=== PATIENT | male | born 1955 | race Caucasian/White ===

== ENCOUNTER 2022-12-17 07:56 | Outpatient (OUT) | payer BC, SELFPAY ==
[2022-12-17 08:32] LABS: Basophils Percent Auto 0.6 % (0.2-2.0); Eosinophils Absolute Auto 0.1 10^3/uL (0.0-0.7); Eosinophils Percent Auto 1.8 % (0.9-7.0); Hematocrit 44.9 % (42.0-54.0); Hemoglobin 15.1 g/dL (14.0-18.0); Immature Granulocytes Abs Auto 0.04 10^3/uL (0.00-0.03); Immature Granulocytes Pct Auto 0.8 % (0.0-0.5); Lymphocytes Absolute Auto 1.7 10^3/uL (1.2-3.8); Lymphocytes Percent Auto 34.3 % (20.5-60.0); Mean Corpuscular HGB Conc 33.6 g/dL (29.9-35.2); Mean Corpuscular Hemoglobin 31.7 pg (25.9-34.0); Mean Corpuscular Volume 94.3 fL (80.0-94.0); Mean Platelet Volume 9.5 fL (9.5-13.5); Monocytes Absolute Auto 0.5 10^3/uL (0.3-0.8); Monocytes Percent Auto 10.3 % (1.7-12.0); Neutrophils Absolute Auto 2.6 10^3/uL (1.4-6.5); Neutrophils Percent Auto 52.2 % (43.0-75.0); Platelet Count 152 10^3/uL (150-450); Red Blood Count 4.76 10^6/uL (4.70-6.10); Red Cell Distribution Width 12.9 % (11.0-15.0)
[2022-12-17 14:09] LABS: Alanine Aminotransferase 26 U/L (16-63); Albumin Level 3.6 g/dL (3.4-5.0); Alkaline Phosphatase 67 U/L (46-116); Anion Gap 9.3; Aspartate Amino Transferase 16 U/L (15-37); BUN Creatinine Ratio 20.7; Bilirubin Direct 0.1 mg/dL (0.0-0.2); Bilirubin Total 0.5 mg/dL (0.2-1.0); Carbon Dioxide 28.9 mmol/L (21.0-32.0); Chloride 106 mmol/L (98-107); Estimated GFR (African America >60 (>=60); Estimated GFR (Non-African Ame 60 (>=60); Globulin 3.6 g/dL; Glucose 218 mg/dL (74-106); Potassium 5.2 mmol/L (3.5-5.1); Sodium 139 mmol/L (136-145); Total Protein 7.2 g/dL (6.4-8.2); Valproic Acid 90.9 ug/mL (50.0-100.0)
[2022-12-19 12:09] LABS: Levetiracetam (Keppra), S 47.7 ug/mL (10.0-40.0)
== END 2022-12-17 07:57 | disposition home or self-care (01) ==
LOC: LAB 08:01
PROVIDERS: PCP Internal Medicine
DX: G40.909 Epilepsy, unspecified, not intractable, without status epilepticus (principal)
CPT/HCPCS: 36415; 80048; 80076; 80164; 80177; 85025

== ENCOUNTER 2023-03-19 07:14 | Outpatient (OUT) | payer BC, SELFPAY ==
[2023-03-19 14:22] LABS: Estimated Average Glucose 217 mg/dL; Glycohemoglobin A1C 9.2 % (4.5-6.2)
== END 2023-03-19 07:15 | disposition home or self-care (01) ==
PROVIDERS: PCP Internal Medicine; Visit Provider Internal Medicine
DX: E11.65 Type 2 diabetes mellitus with hyperglycemia (principal)
CPT/HCPCS: 36415; 83036

== ENCOUNTER 2023-06-27 14:46 | Outpatient (OUT) | payer BC, SELFPAY ==
[2023-06-27 15:40] LABS: Estimated Average Glucose 255 mg/dL; Glycohemoglobin A1C 10.5 % (4.5-6.2)
== END 2023-06-27 14:47 | disposition home or self-care (01) ==
LOC: LAB 14:47
PROVIDERS: PCP Internal Medicine; Visit Provider Internal Medicine
DX: E11.65 Type 2 diabetes mellitus with hyperglycemia (principal)
CPT/HCPCS: 36415; 83036

== ENCOUNTER 2023-10-03 06:28 | Outpatient (OUT) | payer BC, SELFPAY ==
--- OUTSIDE RECORDS SUMMARY | 2023-10-03 06:33 | XMS_ITS | CCD ---
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 Phone: Chloride [Moles/Vol] 99 mmol/L 98 - 107 mmol/L [employer] Phone: CO2 [Moles/Vol] 25 mmol/L 20 - 31 mmol/L [employer] Phone: Creatinine [Mass/Vol] 0.61 mg/dL Low 0.70 - 1.20 mg/dL [employer] Phone: Free PSA/Total PSA [Mass fraction] 6.7 g/dL 6.4 - 8.3 g/dL [employer] Phone: GFR >60 >60 mL/min [employer] Phone: GFR Non- >60 >60 mL/min [employer] Phone: Glucose [Mass/Vol] 157 mg/dL High 70 - 99 mg/dL [employer] Phone: Interpretation and review of laboratory results Abnormal [employer] Phone: Potassium [Moles/Vol] 4.3 mmol/L 3.7 - 5.3 mmol/L [employer] Phone: Sodium [Moles/Vol] 133 mmol/L Low 135 - 144 mmol/L [employer] Phone: Urea nitrogen (BldV) [Mass/Vol] 12 mg/dL 8 - 23 mg/dL [employer] Phone: Urea nitrogen/Creatinin e (Bld) [Mass ratio] 20 [employer] Phone: [employer] Phone: Laboratory - Chemistry and C hemistry - challengeOrdered By: Yuko Hunt on 01-01-2021 GFR/1.73 sq M.predicted MDRD (S/P/Bld) [Vol rate/Area] [employer] Phone: Comment on above: Average GFR for 60-6 9 years old: 85 mL/min/1.73sq m Chronic Kidney Disease: <60 mL/min/1.73sq m Kidney failure: <15 mL/min/1.73sq m eGFR calculated using average adult body mass. Additional eGFR calculator available at: http://www.365Scores/multiple_crcl_2012.htm Stage 1: Some kidney damage normal GFR Stage 2: Mild kidney damage GFR 60-89 Stage 3: Moderate kidney damage GFR 30-59 Stage 4: Severe kidney damage GFR 15-29 Stage 5: Severe kidney damage GFR <15 ESRD - chronic treatment by dialysis or transplant COMPLETE BLOOD COUNTon 12-28 Erythrocyte distribution width (RBC) [Ratio] 15.5 % High 11.5-14.5 [facility] Comment on above: Performed By: #### C BC ####[facility] [id number] [place], [address] Hematocrit (Bld) [Volume fraction] 23.2 % Low 41.0-53.0 [facility] Comment on above: Performed By: #### C BC ####[facility] [id number] [place], [place], Hemoglobin (Bld) [Mass/Vol] 7.7 g/dL Low 13.9-16.3 [facility] Comment on above: Performed By: #### C BC ####[facility] [id number] [place], [place], MCH (RBC) [Entitic mass] 29.9 pg Normal 26.0-34.0 [facility] Comment on above: Performed By: #### C BC ####[facility] [id number] [place] [address], MCHC (RBC) [Mass/Vol] 33.2 g/dL Normal 32.0-35.9 [facility] Comment on above: Performed By: #### C BC ####[facility] [id number] [place] [address], MCV (RBC) [Entitic vol] 90 fL Normal 80-100 [facility] Comment on above: Performed By: #### C BC ####[facility]Y [id number] [place] [address], Platelet mean volume (Bld) [Entitic vol] 6.9 fL Low 7.5-11.2 [facility] Comment on above: Performed By: #### C BC ####[facility] [id number] [place] [address], Platelets (Bld) [#/Vol] 231 10*3/uL Normal 150-400 [facility] Comment on above: Performed By: #### C BC ####[facility] [id number] [place] [address], RBC (Bld) [#/Vol] 2.58 10*6/uL Low 4.50-5.90 [facility] Comment on above: Performed By: #### C BC ####[facility] [id number] [place] [address], WBC (Bld) [#/Vol] 5.4 10*3/uL Normal 4.5-11.5 [facility] Comment on above: Performed By: #### C BC ####[facility] [id number] [place], [address] Care Plan Noteon 12-28-2020 [employer] Physical Therapist Assistant Authentication Interface Message Text Normal [facility] Consultson 12-28-2020 [employer] Physical Therapist Assistant Authentication Interface Message Text Normal [facility] Discharge Planning Noteon Per [employer] Physical Therapist Assistant Authentication Interface Message Text Normal [facility] GLUCOSE, FINGERSTICK-IN OFFI CEon 12-28-2020 Glucose [Mass/Vol] 186 mg/dL High 80-116 [facility] Comment on above: Performed By: #### 8 2948 ####NURSING GLUCOSE [id number] [place], [address] Glucose [Mass/Vol] 266 mg/dL High 80-116 [facility] Comment on above: Performed By: #### 8 2948 ####NURSING GLUCOSE [id number] [place], [address] Progress Noteson 12-28-2020 Per [employer] Physical Therapist Assistant Authentication Interface Message Text Report called to [facility]. Normal [facility] Per Diem Physical Therapist Assistant Authentication Interface Message Text SW informed by admissions at [facility] that pre-cert has been obtained. SW to set up transport via [email or web address]. YUNIEL Sanderson Social Work Normal [facility] Per Diem Physical Therapist Assistant Authentication Interface Message Text Normal [facility] Care Plan Noteon 12-27-2020 [employer] Physical Therapist Assistant Authentication Interface Message Text Normal [facility] Per Diem Physical Therapist Assistant Authentication Interface Message Text Normal [facility] Coding Summary.on 12-27-2020 Coding Summary. Normal [facility] Consultson 12-27-2020 Per [employer] Physical Therapist Assistant Authentication Interface Message Text Normal [facility] GLUCOSE, FINGERSTICK-IN OFFI CEon 12-27-2020 Glucose [Mass/Vol] 215 mg/dL High 80-116 [facility] Comment on above: Performed By: #### 8 2948 ####NURSING GLUCOSE [id number] [place], [address] Glucose [Mass/Vol] 279 mg/dL High 80-116 [facility] Comment on above: Performed By: #### 8 2948 ####NURSING GLUCOSE [id number] [place], [address] Glucose [Mass/Vol] 213 mg/dL High 80-116 [facility] Comment on above: Performed By: #### 8 2948 ####NURSING GLUCOSE [id number] [place], [address] Progress Noteson 12-27-2020 Per [employer] Physical Therapist Assistant Authentication Interface Message Text Normal [facility] Per Diem Physical Therapist Assistant Authentication Interface Message Text Normal [facility] Per Diem Physical Therapist Assistant Authentication Interface Message Text Normal [facility] Care Plan Noteon 12-26-2020 Per [employer] Physical Therapist Assistant Authentication Interface Message Text Normal [facility] Consultson 12-26-2020 Per [employer] Physical Therapist Assistant Authentication Interface Message Text Normal [facility] Per Diem Physical Therapist Assistant Authentication Interface Message Text Normal [facility] GLUCOSE, FINGERSTICK-IN OFFI CE12-26-2020 Glucose [Mass/Vol] 240 mg/dL High 80-116 [facility] Comment on above: Performed By: #### 8 2948 ####NURSING GLUCOSE [id number] [place], [address] Glucose [Mass/Vol] 171 mg/dL High 80-116 [facility] Comment on above: Performed By: #### 8 2948 ####NURSING GLUCOSE [id number] [place], [address] Glucose [Mass/Vol] 215 mg/dL High 80-116 [facility] Comment on above: Performed By: #### 8 2948 ####NURSING GLUCOSE [id number] [place], [address] Glucose [Mass/Vol] 151 mg/dL High 80-116 [facility] Comment on above: Performed By: #### 8 2948 ####NURSING GLUCOSE [id number] [place], [address] Progress Noteson 12-26-2020 Per Diem Physical Therapist Assistant Authentication Interface Message Text Normal [facility] Per Diem Physical Therapist Assistant Authentication Interface Message Text Normal [facility] Per Diem Physical Therapist Assistant Authentication Interface Message Text Normal [facility] Care Plan Noteon 12-25-2020 Per [employer]em Physical Therapist Assistant Authentication Interface Message Text Normal [facility] GLUCOSE, FINGERSTICK-IN OFFI CEon 12-25-2020 Glucose [Mass/Vol] 209 mg/dL High 80-116 [facility] Comment on above: Performed By: #### 8 2948 ####NURSING GLUCOSE [id number] [place], [address] Glucose [Mass/Vol] 193 mg/dL High 80-116 [facility] Comment on above: Performed By: #### 8 2948 ####NURSING GLUCOSE [id number] [place], [address] Glucose [Mass/Vol] 150 mg/dL High 80-116 [facility] Comment on above: Performed By: #### 8 2948 ####NURSING GLUCOSE [id number] [place], [address] Glucose [Mass/Vol] 96 mg/dL Normal 80-116 [facility] Comment on above: Performed By: #### 8 2948 ####NURSING GLUCOSE [id number] [place], [address] Glucose [Mass/Vol] 142 mg/dL High 80-116 [facility] Comment on above: Performed By: #### 8 2948 ####NURSING GLUCOSE [id number] [place], [address] Progress Noteson 12-25-2020 Per Diem Physical Therapist Assistant Authentication Interface Message Text Normal [facility] Per Diem Physical Therapist Assistant Authentication Interface Message Text Normal [facility] Per Diem Physical Therapist Assistant Authentication Interface Message Text Normal [facility] Care Plan Noteon 12-24-2020 Per Diem Physical Therapist Assistant Authentication Interface Message Text Normal [facility] Consultson 12-24-2020 Per [employer] Physical Therapist Assistant Authentication Interface Message Text Normal [facility] GLUCOSE, FINGERSTICK-IN OFFI CEon 12-24-2020 Glucose [Mass/Vol] 211 mg/dL High 80-116 [facility] Comment on above: Performed By: #### 8 2948 ####NURSING GLUCOSE [id number] [place], [address] Glucose [Mass/Vol] 206 mg/dL High 80-116 [facility] Comment on above: Performed By: #### 8 2948 ####NURSING GLUCOSE [id number] [place], [address] Glucose [Mass/Vol] 102 mg/dL Normal 80-116 [facility] Comment on above: Performed By: #### 8 2948 ####NURSING GLUCOSE [id number] [place], [address] Glucose [Mass/Vol] 66 mg/dL Low 80-116 [facility] Comment on above: Performed By: #### 8 2948 ####NURSING GLUCOSE [id number] [place], Glucose [Mass/Vol] 159 mg/dL High 80-116 [facility] Comment on above: Performed By: #### 8 2948 ####NURSING GLUCOSE [id number] [place], [address] Progress Noteson 12-24-2020 Per Diem Physical Therapist Assistant Authentication Interface Message Text Normal [facility] Per Diem Physical Therapist Assistant Authentication Interface Message Text Normal [facility] BASIC METABOLIC PANELon Anion gap [Moles/Vol] 11 mmol/L Normal 5-13 [facility] Comment on above: Performed By: #### Sofia Shah, MG ####[facility] [id number] [place], Calcium [Mass/Vol] 7.2 mg/dL Low 8.4-10.4 [facility] Comment on above: Performed By: #### Sofia Shah, MG ####[facility] [id number] [place], Chloride [Moles/Vol] 100 mmol/L Normal 97-111 [facility] Comment on above: Performed By: #### Sofia Shah, MG ####[facility] [id number] [place], CO2 [Moles/Vol] 29 mmol/L Normal 21-30 [facility] Comment on above: Performed By: #### Sofia Shah, MG ####[facility] [id number] [place], Creatinine [Mass/Vol] 0.71 mg/dL Low 0.80-1.30 [facility] Comment on above: Performed By: #### Sofia Shah, MG ####[facility] [id number] [place], ESTIMATED GFR (CKD-EPI) 99 mL/min/1.73sqm Normal >=60 [facility] Comment on above: Performed By: #### Sofia Shah, MG ####[facility] [id number] [place], Glucose [Mass/Vol] 177 mg/dL High 80-116 [facility] Comment on above: Performed By: #### C H8, MG ####S PATHOLOGY [id number] [place], Potassium [Moles/Vol] 4.3 mmol/L Normal 3.3-5.3 [facility] Comment on above: Performed By: #### Sofia H8, MG ####[facility] PATH[facility] [id number] [place], Sodium [Moles/Vol] 136 mmol/L Normal 135-148 [facility] Comment on above: Performed By: #### Sofia H8, MG ####[facility] PATH[facility] [id number] [place], Urea nitrogen [Mass/Vol] 13 mg/dL Normal 8-22 [facility] Comment on above: Performed By: #### Sofia H8, MG ####[facility] PATHOLOGY [id number] [place] [address], COMPLETE BLOOD COUNTon 12-23 Erythrocyte distribution width (RBC) [Ratio] 15.7 % High 11.5-14.5 [facility] Comment on above: Performed By: #### C BC ####[facility] PATHOLOGY [id number] [place] [address], Hematocrit (Bld) [Volume fraction] 21.6 % Low 41.0-53.0 [facility] Comment on above: Performed By: #### C BC ####S PATHOLOGY [id number] [place], Hemoglobin (Bld) [Mass/Vol] 7.2 g/dL Low 13.9-16.3 [facility] Comment on above: Performed By: #### C BC ####S PATHOLOGY [id number] [place], MCH (RBC) [Entitic mass] 29.8 pg Normal 26.0-34.0 [facility] Comment on above: Performed By: #### C BC ####S PATHOLOGY [id number] [place] [address], MCHC (RBC) [Mass/Vol] 33.1 g/dL Normal 32.0-35.9 [facility] Comment on above: Performed By: #### C BC ####[facility] [id number] [place], MCV (RBC) [Entitic vol] 90 fL Normal 80-100 [facility] Comment on above: Performed By: #### C BC ####[facility] [id number] [place], Platelet mean volume (Bld) [Entitic vol] 6.5 fL Low 7.5-11.2 [facility] Comment on above: Performed By: #### C BC ####[facility] PATH[facility] [id number] [place], Platelets (Bld) [#/Vol] 288 10*3/uL Normal 150-400 [facility] Comment on above: Performed By: #### C BC ####[facility] PATH[facility] [id number] [place], RBC (Bld) [#/Vol] 2.41 10*6/uL Low 4.50-5.90 [facility] Comment on above: Performed By: #### C BC ####[facility] PATH[facility] [id number] [place], WBC (Bld) [#/Vol] 6.8 10*3/uL Normal 4.5-11.5 [facility] Comment on above: Performed By: #### C BC ####[facility] PATHOLOGY [id number] [place], Care Plan Noteon 12-23-2020 Per [employer]em Physical Therapist Assistant Authentication Interface Message Text Normal [facility] GLUCOSE, FINGERSTICK-IN OFFI CEon 12-23-2020 Glucose [Mass/Vol] 139 mg/dL High 80-116 [facility] Comment on above: Performed By: #### 8 2948 ####NURSING GLUCOSE [id number] [place], Glucose [Mass/Vol] 112 mg/dL Normal 80-116 [facility] Comment on above: Performed By: #### 8 2948 ####NURSING GLUCOSE [id number] [place], [address] Glucose [Mass/Vol] 206 mg/dL High 80-116 [facility] Comment on above: Performed By: #### 8 2948 ####NURSING GLUCOSE [id number] [place], [address] Glucose [Mass/Vol] 115 mg/dL Normal 80-116 [facility] Comment on above: Performed By: #### 8 2948 ####NURSING GLUCOSE [id number] [place], [address] Glucose [Mass/Vol] 172 mg/dL High 80-116 [facility] Comment on above: Performed By: #### 8 2948 ####NURSING GLUCOSE [id number] [place], [address] HEMOGLOBIN A1Con 12-23-2020 Glucose [Mass/Vol] 143 mg/dL Normal [facility] Comment on above: Order Comment: HbA1c of 5.7-6.4% have increased risk for diabetes and CV(Source :ADA 2014 Standard of Medical Care in Diabetes) Performed By: #### H B A1C ####[facility] [address] [place], [address] HbA1c (Bld) [Mass fraction] 6.6 % High 4.0-5.6 [facility] Comment on above: Order Comment: HbA1c of 5.7-6.4% have increased risk for diabetes and CV(Source :ADA 2014 Standard of Medical Care in Diabetes) Performed By: #### H B A1C ####[facility] [address] [place], [address] MAGNESIUMon 12-23-2020 Magnesium [Mass/Vol] 1.9 mg/dL Normal 1.6-2.8 [facility] Comment on above: Performed By: #### C H8, MG ####[facility] [id number] [place], [address] Progress Noteson 12-23-2020 Per Diem Physical Therapist Assistant Authentication Interface Message Text Normal [facility] Per Diem Physical Therapist Assistant Authentication Interface Message Text Normal [facility] BASIC METABOLIC PANELon 07-0 Anion gap [Moles/Vol] 10 mmol/L Normal 5-13 [facility] Comment on above: Performed By: #### Rosa Wells, CH8 ####S PATHOLOGY [id number] [place], Calcium [Mass/Vol] 7.4 mg/dL Low 8.4-10.4 [facility] Comment on above: Performed By: #### Rosa Wells, CH8 ####S PATHOLOGY [id number] [place], Chloride [Moles/Vol] 101 mmol/L Normal 97-111 [facility] Comment on above: Performed By: #### Rosa Wells, CH8 ####S PATHOLOGY [id number] [place], CO2 [Moles/Vol] 30 mmol/L Normal 21-30 [facility] Comment on above: Performed By: #### Rosa Wells, CH8 ####S PATHOLOGY [id number] [place], [place], Creatinine [Mass/Vol] 0.62 mg/dL Low 0.80-1.30 [facility] Comment on above: Performed By: #### Rosa Wells, CH8 ####[facility] PATHOLOGY [id number] [place], ESTIMATED GFR (CKD-EPI) 105 mL/min/1.73sqm Normal >=60 [facility] Comment on above: Performed By: #### Rosa Wells, CH8 ####S PATHOLOGY KFHEHFANXF4723 [place], Glucose [Mass/Vol] 91 mg/dL Normal 80-116 [facility] Comment on above: Performed By: #### Rosa Wells, CH8 ####S PATHOLOGY QKOYOAZIYB3963 [place], Potassium [Moles/Vol] 4.3 mmol/L Normal 3.3-5.3 [facility] Comment on above: Performed By: #### Rosa Wells, CH8 ####S PATHOLOGY TDCJXPUWYV7162 [place], Sodium [Moles/Vol] 137 mmol/L Normal 135-148 [facility] Comment on above: Performed By: #### Roas Wells, CH8 ####[facility] PATHOLOGY PEIUNVDEVI5704 [place], Urea nitrogen [Mass/Vol] 10 mg/dL Normal 8-22 [facility] Comment on above: Performed By: #### Rosa Wells, CH8 ####[facility] PATHOLOGY [id number] [place], COMPLETE BLOOD COUNTon 12-22 Erythrocyte distribution width (RBC) [Ratio] 16.0 % High 11.5-14.5 [facility] Comment on above: Performed By: #### C BC ####[facility] PATHOLOGY [id number] [place], Hematocrit (Bld) [Volume fraction] 22.8 % Low 41.0-53.0 [facility] Comment on above: Performed By: #### C BC ####[facility] PATHOLOGY [id number] [place] [address], Hemoglobin (Bld) [Mass/Vol] 7.4 g/dL Low 13.9-16.3 [facility] Comment on above: Performed By: #### C BC ####[facility] PATHOLOGY [id number] [place], MCH (RBC) [Entitic mass] 29.1 pg Normal 26.0-34.0 [facility] Comment on above: Performed By: #### C BC ####[facility] PATHOLOGY JILRFUQJME4313 [place], MCHC (RBC) [Mass/Vol] 32.7 g/dL Normal 32.0-35.9 [facility] Comment on above: Performed By: #### C BC ####S PATHOLOGY JFUPWPWMDA9372 [place], MCV (RBC) [Entitic vol] 89 fL Normal 80-100 [facility] Comment on above: Performed By: #### C BC ####S PATHOLOGY EGTALQNWPB5634 [place], Platelet mean volume (Bld) [Entitic vol] 6.5 fL Low 7.5-11.2 [facility] Comment on above: Performed By: #### C BC ####S PATHOLOGY GRANNZYEDK8837 [place], Platelets (Bld) [#/Vol] 306 10*3/uL Normal 150-400 [facility] Comment on above: Performed By: #### C BC ####[facility] PATHOLOGY DCSGIOXUNL8015 [place], RBC (Bld) [#/Vol] 2.56 10*6/uL Low 4.50-5.90 [facility] Comment on above: Performed By: #### C BC ####[facility] PATHOLOGY NUBGYWOIDY6939 [place], WBC (Bld) [#/Vol] 10.0 10*3/uL Normal 4.5-11.5 [facility] Comment on above: Performed By: #### C BC ####[facility] PATHOLOGY UAFDUKEFZF8112 [place], Care Plan Noteon 12-22-2020 Per Diem Physical Therapist Assistant Authentication Interface Message Text Normal [facility] Consultson 12-22-2020 Per Diem Physical Therapist Assistant Authentication Interface Message Text Normal [facility] Per Diem Physical Therapist Assistant Authentication Interface Message Text Normal [facility] Per Diem Physical Therapist Assistant Authentication Interface Message Text Normal [facility] GLUCOSE, FINGERSTICK-IN OFFI CEon 12-22-2020 Glucose [Mass/Vol] 110 mg/dL Normal 80-116 [facility] Comment on above: Performed By: #### 8 2948 ####NURSING GLUCOSE LXLTNZY8706 [place], [address] Glucose [Mass/Vol] 243 mg/dL High 80-116 [facility] Comment on above: Performed By: #### 8 2948 ####NURSING GLUCOSE NQPKKSX6050 [place], [address] Glucose [Mass/Vol] 120 mg/dL High 80-116 [facility] Comment on above: Performed By: #### 8 2948 ####NURSING GLUCOSE XKFAFRC9927 [place], [address] Glucose [Mass/Vol] 102 mg/dL Normal 80-116 [facility] Comment on above: Performed By: #### 8 2948 ####NURSING GLUCOSE JLTGYLZ6507 [place], [address] MAGNESIUMon 12-22-2020 Magnesium [Mass/Vol] 1.8 mg/dL Normal 1.6-2.8 [facility] Comment on above: Performed By: #### Rosa Wells, CH8 ####[facility] PATHOLOGY [id number] [place], Progress Noteson 12-22-2020 Per Diem Physical Therapist Assistant Authentication Interface Message Text Normal [facility] Per Diem Physical Therapist Assistant Authentication Interface Message Text Normal [facility] Per Diem Physical Therapist Assistant Authentication Interface Message Text Normal [facility] XR CHEST AP OR PA 1 VIEWon 0 12-22-2020 XR CHEST AP OR PA 1 VIEW Normal [facility] XR CHEST AP OR PA 1 VIEW Normal [facility] BASIC METABOLIC PANELon Anion gap [Moles/Vol] 12 mmol/L Normal 5-13 [facility] Comment on above: Performed By: #### C H8, MG ####S PATHOLOGY JPQHJTAYJN8161 [place], Calcium [Mass/Vol] 7.4 mg/dL Low 8.4-10.4 [facility] Comment on above: Performed By: #### C H8, MG ####[facility] HZYNZIIRGI6198 [place], Chloride [Moles/Vol] 99 mmol/L Normal 97-111 [facility] Comment on above: Performed By: #### C H8, MG ####[facility] DAGXDEHIQV1003 [place], CO2 [Moles/Vol] 27 mmol/L Normal 21-30 [facility] Comment on above: Performed By: #### C H8, MG ####[facility] CGHCWEMJIZ8576 [place], Creatinine [Mass/Vol] 0.63 mg/dL Low 0.80-1.30 [facility] Comment on above: Performed By: #### C H8, MG ####S PATHOLOGY WNZTUBPTYS7658 [place], ESTIMATED GFR (CKD-EPI) 104 mL/min/1.73sqm Normal >=60 [facility] Comment on above: Performed By: #### Sofia H8, MG ####[facility] [id number] [place], Glucose [Mass/Vol] 228 mg/dL High 80-116 [facility] Comment on above: Performed By: #### Sofia Apodaca8, MG ####S PATHOLOGY LTKXTLEXVR8447 [place], Potassium [Moles/Vol] 4.9 mmol/L Normal 3.3-5.3 [facility] Comment on above: Performed By: #### Sofia H8, MG ####S PATHOLOGY SCSCLDIPYB6601 [place], Sodium [Moles/Vol] 133 mmol/L Low 135-148 [facility] Comment on above: Performed By: #### Sofia H8, MG ####S PATHOLOGY JMLYRTWJLD1752 [place], Urea nitrogen [Mass/Vol] 8 mg/dL Normal 8-22 [facility] Comment on above: Performed By: #### Sofia H8, MG ####S PATHOLOGY VBTLEUMPGA7702 [place], COMPLETE BLOOD COUNTon 12-21 Erythrocyte distribution width (RBC) [Ratio] 15.8 % High 11.5-14.5 [facility] Comment on above: Performed By: #### C BC ####[facility] RFALNYSFBL8075 [place], Hematocrit (Bld) [Volume fraction] 24.6 % Low 41.0-53.0 [facility] Comment on above: Performed By: #### C BC ####[facility] SRNLTRVFXP8854 [place], Hemoglobin (Bld) [Mass/Vol] 8.3 g/dL Low 13.9-16.3 [facility] Comment on above: Performed By: #### C BC ####[facility] PATHOLOGY [id number] [place], MCH (RBC) [Entitic mass] 30.6 pg Normal 26.0-34.0 [facility] Comment on above: Performed By: #### C BC ####[facility] PATHOLOGY [id number] [place], MCHC (RBC) [Mass/Vol] 33.6 g/dL Normal 32.0-35.9 [facility] Comment on above: Performed By: #### C BC ####[facility] PATHOLOGY FHGULFABGV4929 [place], MCV (RBC) [Entitic vol] 91 fL Normal 80-100 [facility] Comment on above: Performed By: #### C BC ####[facility] PATHOLOGY [id number] [place], Platelet mean volume (Bld) [Entitic vol] 6.6 fL Low 7.5-11.2 [facility] Comment on above: Performed By: #### C BC ####[facility] PATHOLOGY [id number] [place], Platelets (Bld) [#/Vol] 361 10*3/uL Normal 150-400 [facility] Comment on above: Performed By: #### C BC ####[facility] PATHOLOGY [id number] [place], RBC (Bld) [#/Vol] 2.70 10*6/uL Low 4.50-5.90 [facility] Comment on above: Performed By: #### C BC ####[facility] PATHOLOGY PGQNHXEKOO8764 [place], WBC (Bld) [#/Vol] 10.1 10*3/uL Normal 4.5-11.5 [facility] Comment on above: Performed By: #### C BC ####S PATHOLOGY AOKFAQDDKL8471 [place], [facility] Per Diem Physical Therapist Assistant Authentication Interface Message Text Normal [facility] Per Diem Physical Therapist Assistant Authentication Interface Message Text Normal [facility] Per Diem Physical Therapist Assistant Authentication Interface Message Text Normal [facility] GLUCOSE, FINGERSTICK-IN OFFI CEon 12-21-2020 Glucose [Mass/Vol] 165 mg/dL High 80-116 [facility] Comment on above: Performed By: #### 8 2948 ####NURSING GLUCOSE ZMLHMUI1527 [place], [address] Glucose [Mass/Vol] 270 mg/dL High 80-116 [facility] Comment on above: Performed By: #### 8 2948 ####NURSING GLUCOSE NSZGIXY3112 [place], [address] Glucose [Mass/Vol] 158 mg/dL High 80-116 [facility] Comment on above: Performed By: #### 8 2948 ####NURSING GLUCOSE ZPBKOCU7459 [place], [address] Glucose [Mass/Vol] 175 mg/dL High 80-116 [facility] Comment on above: Performed By: #### 8 2948 ####NURSING GLUCOSE EHWDXJO7292 [place], [address] Glucose [Mass/Vol] 283 mg/dL High 80-116 [facility] Comment on above: Result Comment: Javier CURTISN Performed By: #### 8 2944 ####NURSING GLUCOSE ZLCOFDM1683 [place], [address] HOSPon 12-21-2020 HOSP Patient:Uma Barker N MRN: No data within the last 30 days. Normal [facility] MAGNESIUMon 12-21-2020 Magnesium [Mass/Vol] 1.6 mg/dL Normal 1.6-2.8 [facility] Comment on above: Performed By: #### C H8, MG ####[facility] QIXHQOUMCB4873 [place], [address] Progress Noteson 12-21-2020 Per Diem Physical Therapist Assistant Authentication Interface Message Text Normal [facility] Per Diem Physical Therapist Assistant Authentication Interface Message Text Normal [facility] XR CHEST AP OR PA 1 VIEWon 0 12-21-2020 XR CHEST AP OR PA 1 VIEW Normal [facility] AFB CULTURE/SMEARon 12-21-19 21 AFB CULTURE/SMEAR C AFB: No Growth AFB STAIN: No Acid Fast Bacilli Seen Normal [facility] Comment on above: Performed By: #### C AFB ####[facility] Jtfsxrwts3974 [place], [place] ANAEROBIC CULTURE, MISCon [place]OB[place] [facility] [place]: No Anaerobes isolated Normal [facility] Comment on above: Performed By: #### C ANRBC ####[facility] Etgfktjjg1291 [place], [place] [place] [facility] [place] [place] ANRBC: No Anaerobes isolated Normal [facility] Comment on above: Performed By: #### C ANRBC ####[facility] Rdlmnonhl9685 [place], [place] Anesthesia Attestationon Per Diem Physical Therapist Assistant Authentication Interface Message Text Normal [facility] Anesthesia Postprocedure Lizbeth luationon 12-20-2020 Per Diem Physical Therapist Assistant Authentication Interface Message Text Normal [facility] Anesthesia Preprocedure Eval uationon 12-20-2020 Per Diem Physical Therapist Assistant Authentication Interface Message Text Normal [facility] Anesthesia Transfer Of Careo n 12-20-2020 Per Diem Physical Therapist Assistant Authentication Interface Message Text Normal [facility] BASIC METABOLIC PANELon - Anion gap [Moles/Vol] 12 mmol/L Normal 5-13 [facility] Comment on above: Performed By: #### Sofia H8, MG ####[facility] CKPJNOELFN6132 [place], Calcium [Mass/Vol] 7.4 mg/dL Low 8.4-10.4 [facility] Comment on above: Performed By: #### Sofia H8, MG ####[facility] CPSZERLGSH9788 [place], Chloride [Moles/Vol] 100 mmol/L Normal 97-111 [facility] Comment on above: Performed By: #### Sofia H8, MG ####[facility] AJGXRYLMRC9303 [place], CO2 [Moles/Vol] 29 mmol/L Normal 21-30 [facility] Comment on above: Performed By: #### Sofia H8, MG ####S PATHOLOGY XZQFKFKZHG5796 [place], Creatinine [Mass/Vol] 0.70 mg/dL Low 0.80-1.30 [facility] Comment on above: Performed By: #### Sofia H8, MG ####S PATHOLOGY QSHWIGUHWU0892 [place], ESTIMATED GFR (CKD-EPI) 100 mL/min/1.73sqm Normal >=60 [facility] Comment on above: Performed By: #### Sofia H8, MG ####[facility] PATHOLOGY SFXLVOCPXI6446 [place], Glucose [Mass/Vol] 192 mg/dL High 80-116 [facility] Comment on above: Performed By: #### Sofia H8, MG ####[facility] PATHOLOGY LTOPMVYVGS5917 [place], Potassium [Moles/Vol] 4.5 mmol/L Normal 3.3-5.3 [facility] Comment on above: Performed By: #### Sofia H8, MG ####[facility] PATHOLOGY JOIMJFKGIY9572 [place], Sodium [Moles/Vol] 136 mmol/L Normal 135-148 [facility] Comment on above: Performed By: #### Sofia H8, MG ####[facility] PATHOLOGY ZYJYHPBHME7908 [place], Urea nitrogen [Mass/Vol] 8 mg/dL Normal 8-22 [facility] Comment on above: Performed By: #### C H8, MG ####S PATHOLOGY OSHCEPAVAS1221 [place], BLOOD GAS, ARTERIALon 2020 CR % O2 SAT > 99.4 Normal >=95.1 [facility] Comment on above: Performed By: #### C R LYTES, CR GLU, CR BGA, LACT, CR ICA, CR COOX ####S PATHOLOGY UVMIKOWULG6301 [place], CR LESA 3.3 mmol/L High -2.0-2.0 [facility] Comment on above: Performed By: #### C R LYTES, CR GLU, CR BGA, LACT, CR ICA, CR COOX ####[facility] PATHOLOGY [address] [place] [address], CR PCO2 44.3 mm Hg Normal 35.0-45.0 [facility] Comment on above: Performed By: #### C R LYTES, CR GLU, CR BGA, LACT, CR ICA, CR COOX ####[facility] PATHOLOGY KLIKLEEROR[address] [place] [address], CR PHA 7.412 Normal 7.35-7.45 [facility] Comment on above: Performed By: #### C R LYTES, CR GLU, CR BGA, LACT, CR ICA, CR COOX ####[facility] PATHOLOGY NOPKUVIQRN[address] [place] [address], CR PO2 298 mm Hg High 80-100 mm Hg [facility] Comment on above: Performed By: #### C R LYTES, CR GLU, CR BGA, LACT, CR ICA, CR COOX ####[facility] PATHOLOGY JJDZAOJKIP[address] [place] [address], HCO3 (Bld) [Moles/Vol] 28 mmol/L Normal 22-28 [facility] Comment on above: Performed By: #### C R LYTES, CR GLU, CR BGA, LACT, CR ICA, CR COOX ####[facility] PATHOLOGY HVCRKXDCZU[address] [place] [address], Blood Attestationon 12-21-19 Per Diem Physical Therapist Assistant Authentication Interface Message Text Normal [facility] Brief Operative Noteon 12-20 Per Diem Physical Therapist Assistant Authentication Interface Message Text Normal [facility] CALCIUM, IONIZEDon CR ICA 1.11 mmol/L Normal 1.10-1.40 [facility] Comment on above: Performed By: #### C R LYTES, CR GLU, CR BGA, LACT, CR ICA, CR COOX ####[facility] PATHOLOGY BEYXII[address]LS[address] [place] [address], CO-OXIMETERon 12-20-2020 CARBOXYHEMOGLOBIN 2.1 % Normal <3.0 [facility] Comment on above: Performed By: #### C R LYTES, CR GLU, CR BGA, LACT, CR ICA, CR COOX ####[facility] PATHOLOGY QDYSMOGCGU[address] [place] [address], CR HBMET 0.9 % Normal <3.0 [facility] Comment on above: Performed By: #### C R LYTES, CR GLU, CR BGA, LACT, CR ICA, CR COOX ####[facility] PATHOLOGY ITHVFTQUEG[address] [place] [address], Hematocrit (Bld) [Volume fraction] 25.5 % Low 42.0-52.0 [facility] Comment on above: Performed By: #### C R LYTES, CR GLU, CR BGA, LACT, CR ICA, CR COOX ####[facility] PATHOLOGY UZWL[address]ZTGY[address] [place] [address], Hemoglobin (Bld) [Mass/Vol] 8.2 g/dL Low 14.0-18.0 [facility] Comment on above: Performed By: #### C R LYTES, CR GLU, CR BGA, LACT, CR ICA, CR COOX ####[facility] PATHOLOGY RFRPVPJUSL[address] [place] [address], OXYHEMOGLOBIN 97.3 % Normal 95.0-100.0 [facility] Comment on above: Performed By: #### C R LYTES, CR GLU, CR BGA, LACT, CR ICA, CR COOX ####[facility] PATHOLOGY VXDQVFDWKI[address] [place] [address], COMPLETE BLOOD COUNTon 12-20 Erythrocyte distribution width (RBC) [Ratio] 15.4 % High 11.5-14.5 [facility] Comment on above: Performed By: #### C BC ####[facility] PATHOLOGY KWEPHVNDWH[address] [place] [address], Hematocrit (Bld) [Volume fraction] 26.1 % Low 41.0-53.0 [facility] Comment on above: Performed By: #### C BC ####[facility] PATHOLOGY HEOZAPSMOO[address] [place] [address], Hemoglobin (Bld) [Mass/Vol] 8.5 g/dL Low 13.9-16.3 [facility] Comment on above: Performed By: #### C BC ####[facility] PATHOLOGY JZVWNHQBOT4320 [place], MCH (RBC) [Entitic mass] 29.6 pg Normal 26.0-34.0 [facility] Comment on above: Performed By: #### C BC ####[facility] PATHOLOGY [id number] [place] [address], MCHC (RBC) [Mass/Vol] 32.6 g/dL Normal 32.0-35.9 [facility] Comment on above: Performed By: #### C BC ####[facility] PATHOLOGY TMVTQCZUSD[address] [place] [address], MCV (RBC) [Entitic vol] 91 fL Normal 80-100 [facility] Comment on above: Performed By: #### C BC ####[facility] PATHOLOGY PLTBXTAEJN[address] [place] [address], Platelet mean volume (Bld) [Entitic vol] 6.8 fL Low 7.5-11.2 [facility] Comment on above: Performed By: #### C BC ####[facility] PATHOLOGY MLMXNFTTZR[address] [place] [address], Platelets (Bld) [#/Vol] 405 10*3/uL High 150-400 [facility] Comment on above: Performed By: #### C BC ####[facility] PATHOLOGY CXDHVJIRHB[address] [place] [address], RBC (Bld) [#/Vol] 2.88 10*6/uL Low 4.50-5.90 [facility] Comment on above: Performed By: #### C BC ####[facility] PATHOLOGY JKQOEFFFUI[address] [place] [address], WBC (Bld) [#/Vol] 6.2 10*3/uL Normal 4.5-11.5 [facility] Comment on above: Performed By: #### C BC ####[facility] PATHOLOGY QWLCYIUHPH3839 [place], Care Plan Noteon 12-20-2020 Per Diem Physical Therapist Assistant Authentication Interface Message Text Normal [facility] Consultson 12-20-2020 Per Diem Physical Therapist Assistant Authentication Interface Message Text Physical Therapy: Pt in OR for VATS. Will continue to follow per POC. Maria Luisa MONTERO Beeper #[phone] Normal [facility] ELECTROLYTESon 12-20-2020 Chloride [Moles/Vol] 104 mmol/L Normal 97-111 [facility] Comment on above: Performed By: #### C R LYTES, CR GLU, CR BGA, LACT, CR ICA, CR COOX ####[facility] PATHOLOGY [id number] [place], Potassium [Moles/Vol] 4.1 mmol/L Normal 3.3-5.3 [facility] Comment on above: Performed By: #### C R LYTES, CR GLU, CR BGA, LACT, CR ICA, CR COOX ####[facility] PATHOLOGY JOHSZMGSEF[address] [place] [address], Sodium [Moles/Vol] 136 mmol/L Normal 135-148 [facility] Comment on above: Performed By: #### C R LYTES, CR GLU, CR BGA, LACT, CR ICA, CR COOX ####[facility] PATHOLOGY [id number] [place], GLUCOSE, FINGERSTICK-IN OFFI CEon 12-20-2020 Glucose [Mass/Vol] 146 mg/dL High 80-116 [facility] Comment on above: Performed By: #### 8 2948 ####NURSING GLUCOSE IQQWMUH5776 [place], [address] Glucose [Mass/Vol] 147 mg/dL High 80-116 [facility] Comment on above: Performed By: #### 8 2948 ####NURSING GLUCOSE UMFCWYF8874 [place], [address] GLUCOSE, WHOLE BLOODon 12-20 CR GLU 132 mg/dL High 68-98 [facility] Comment on above: Performed By: #### C R LYTES, CR GLU, CR BGA, LACT, CR ICA, CR COOX ####S PATHOLOGY HWSHCIPDLH9384 [place], H AND Glenn 12-20-2020 Per Diem Physical Therapist Assistant Authentication Interface Message Text Normal [facility] LACTIC ACIDon 12-20-2020 CR LACT 1.2 mmol/L Normal 0.5-2.0 [facility] Comment on above: Performed By: #### C R LYTES, CR GLU, CR BGA, LACT, CR ICA, CR COOX ####S PATHOLOGY MAMNVZSIKL7375 [place], MAGNESIUMon 12-20-2020 Magnesium [Mass/Vol] 1.9 mg/dL Normal 1.6-2.8 [facility] Comment on above: Performed By: #### C H8, MG ####[facility] PATHOLOGY QCEKMATCLT8530 [place], [place] Surgeonon 12-20-2020 Per Diem Physical Therapist Assistant Authentication Interface Message Text Normal [facility] Progress Noteson 12-20-2020 Per Diem Physical Therapist Assistant Authentication Interface Message Text 1529: Assessment completed with assistance of translator and interpreter [id number]. 1620: Pt to go to the regular nursing floor per Dr. Pacheco. Normal [facility] Per Diem Physical Therapist Assistant Authentication Interface Message Text Normal [facility] RED BLOOD CELL COMPONENTon 0 12-20-2020 BB ORDER ITEM Product status info to follow Normal [facility] Comment on above: Performed By: #### R EVELYN ####S PATHOLOGY [id number] [place], RED BLOOD CELL UNIT STATUSon 12-20-2020 BLOOD PRODUCT CODE [id number] Normal [facility] Comment on above: Performed By: #### R BU ####[facility] ELYTSHBEDV5041 [place], BLOOD PRODUCT CODE [id number] Normal [facility] Comment on above: Performed By: #### R BU ####[facility] EZAZZDGSZQ0055 [place], BLOOD PRODUCT DESCRIPTION Red Blood Cells Normal [facility] Comment on above: Performed By: #### R BU ####S PATHOLOGY ACZPRWKEYI4826 [place], BLOOD PRODUCT STATUS Released to avail Normal [facility] Comment on above: Performed By: #### R BU ####S PATHOLOGY [id number] [place], BLOOD PRODUCT UNIT INFO [id number] Normal [facility] Comment on above: Performed By: #### R BU ####S PATHOLOGY [id number] [place], [place], BLOOD PRODUCT UNIT INFO [id number] Normal [facility] Comment on above: Performed By: #### R BU ####S PATHOLOGY [id number] [place], BLOOD PRODUCT UNIT INFO [id number] Normal [facility] Comment on above: Performed By: #### R BU ####S PATHOLOGY [id number] [place], BLOOD PRODUCT UNIT INFO [id number] Normal [facility] Comment on above: Performed By: #### R BU ####S PATHOLOGY XEURAEPEPA[address] [place] [address], BLOOD PRODUCT UNIT TYPE 5100 Normal [facility] Comment on above: Result Comment: O Po s Performed By: #### R BU ####S PATHOLOGY GTBHQMPUZA8323 [place], CROSSMATCH INTERPRETATION Compatible (E) Normal [facility] Comment on above: Performed By: #### R BU ####S PATHOLOGY RXITXDJTLW[address] [place] [address], TISSUE CULTURE, AEROBICon TISSUE CULTURE, AEROBIC C TISS: No Growth GRAM STAIN: 4+ Polymorphonuclear Leukocytes No Squamous Epithelial Cells seen No organisms seen Normal [facility] Comment on above: Performed By: #### C TISS ####[facility] Srzzrjjcr[address] [place], [place] [address] TISSUE CULTURE, AEROBIC C TISS: No Growth GRAM STAIN: 2+ Polymorphonuclear Leukocytes No Squamous Epithelial Cells seen No organisms seen Normal [facility] Comment on above: Performed By: #### C TISS ####[facility] Zqhblpecr6516 [place], [place] XR CHEST AP OR PA 1 VIEWon 0 12-20-2020 XR CHEST AP OR PA 1 VIEW Normal [facility] Anesthesia Preprocedure Eval uationon 12-19-2020 Per Diem Physical Therapist Assistant Authentication Interface Message Text Normal [facility] BASIC METABOLIC PANELon - Anion gap [Moles/Vol] 13 mmol/L Normal 5-13 [facility] Comment on above: Performed By: #### Rosa Wells, JASON8 ####S PATHOLOGY DNZBOVBJMM6992 [place], Calcium [Mass/Vol] 7.4 mg/dL Low 8.4-10.4 [facility] Comment on above: Performed By: #### Rosa Wells, JASON8 ####[facility] PATHOLOGY MAIZNFOY[address] [place] [address], Chloride [Moles/Vol] 99 mmol/L Normal 97-111 [facility] Comment on above: Performed By: ###Libra Wells, JASON8 ####[facility] PATHOLOGY XFNDYHSYDE[address] [place] [address], CO2 [Moles/Vol] 29 mmol/L Normal 21-30 [facility] Comment on above: Performed By: ###Libra Wells, JASON8 ####[facility] PATHOLOGY OLDIHTUNKU[address] [place] [address], Creatinine [Mass/Vol] 0.77 mg/dL Low 0.80-1.30 [facility] Comment on above: Performed By: ###Libra Wells, JASON8 ####[facility] PATHOLOGY OZIGMLQMAL0139 [place], ESTIMATED GFR (CKD-EPI) 96 mL/min/1.73sqm Normal >=60 [facility] Comment on above: Performed By: ###Libra Wells, JASON8 ####S PATHOLOGY JOINPNFYIA3389 [place], Glucose [Mass/Vol] 105 mg/dL Normal 80-116 [facility] Comment on above: Performed By: #### Rosa Wells CH8 ####S PATHOLOGY JXCPIDRIHF0509 [place], Potassium [Moles/Vol] 4.1 mmol/L Normal 3.3-5.3 [facility] Comment on above: Performed By: #### Rosa Wells, CH8 ####[facility] PATHOLOGY QWHDTLFNLO7078 [place], Sodium [Moles/Vol] 137 mmol/L Normal 135-148 [facility] Comment on above: Performed By: #### Rosa Wells, CH8 ####[facility] PATHOLOGY CSATIZHTIR7078 [place], Urea nitrogen [Mass/Vol] 9 mg/dL Normal 8-22 [facility] Comment on above: Performed By: #### Rosa Wells, JASON8 ####[facility] PATHOLOGY OAQPDCNWLL[address] [place] [address], COMPLETE BLOOD COUNTon 12-19 Erythrocyte distribution width (RBC) [Ratio] 15.4 % High 11.5-14.5 [facility] Comment on above: Performed By: #### C BC ####[facility] PATHOLOGY XUTKFXKQFL[address] [place] [address], Hematocrit (Bld) [Volume fraction] 25.3 % Low 41.0-53.0 [facility] Comment on above: Performed By: #### C BC ####[facility] PATHOLOGY VGYHNMLUPV0539 [place], Hemoglobin (Bld) [Mass/Vol] 8.3 g/dL Low 13.9-16.3 [facility] Comment on above: Performed By: #### C BC ####[facility] PATHOLOGY JFCSUBBXDO9618 [place], MCH (RBC) [Entitic mass] 29.2 pg Normal 26.0-34.0 [facility] Comment on above: Performed By: #### C BC ####S PATHOLOGY EEOTPXNREH6664 [place], MCHC (RBC) [Mass/Vol] 32.8 g/dL Normal 32.0-35.9 [facility] Comment on above: Performed By: #### C BC ####[facility] PATHOLOGY EPHLHABJQA1069 [place], MCV (RBC) [Entitic vol] 89 fL Normal 80-100 [facility] Comment on above: Performed By: #### C BC ####[facility] PATHOLOGY HLGQRYRGSC9037 [place], Platelet mean volume (Bld) [Entitic vol] 6.5 fL Low 7.5-11.2 [facility] Comment on above: Performed By: #### C BC ####[facility] PATHOLOGY HLTOWBEMYU9515 [place], Platelets (Bld) [#/Vol] 389 10*3/uL Normal 150-400 [facility] Comment on above: Performed By: #### C BC ####[facility] PATHOLOGY CAESSILDES2944 [place], RBC (Bld) [#/Vol] 2.84 10*6/uL Low 4.50-5.90 [facility] Comment on above: Performed By: #### C BC ####[facility] PATHOLOGY KLMULDKQGY[address] [place] [address], WBC (Bld) [#/Vol] 5.5 10*3/uL Normal 4.5-11.5 [facility] Comment on above: Performed By: #### C BC ####[facility] PATHOLOGY XUPIMKEMMM[address] [place] [address], Care Plan Noteon 12-19-2020 Per Diem Physical Therapist Assistant Authentication Interface Message Text Normal [facility] Consultson 12-19-2020 Per Diem Physical Therapist Assistant Authentication Interface Message Text Normal [facility] GLUCOSE, FINGERSTICK-IN OFFI CEon 12-19-2020 Glucose [Mass/Vol] 212 mg/dL High 80-116 [facility] Comment on above: Result Comment: Javier childress RN, APN, MD Performed By: #### 8 7495 ####NURSING GLUCOSE EQOUUAR6567 [place], Glucose [Mass/Vol] 165 mg/dL High 80-116 [facility] Comment on above: Result Comment: Javier childress RN, APN, MD Performed By: #### 8 6670 ####NURSING GLUCOSE WKDPMRM4827 [place], [address] Glucose [Mass/Vol] 110 mg/dL Normal 80-116 [facility] Comment on above: Performed By: #### 8 2948 ####NURSING GLUCOSE ZJJLKJX2606 [place], [address] Glucose [Mass/Vol] 109 mg/dL Normal 80-116 [facility] Comment on above: Performed By: #### 8 2948 ####NURSING GLUCOSE DZVNWHA2429 [place], [address] MAGNESIUMon 12-19-2020 Magnesium [Mass/Vol] 2.0 mg/dL Normal 1.6-2.8 [facility] Comment on above: Performed By: #### Rosa Wells CH8 ####[facility] PATHOLOGY QDCFGRYDFP2914 [place], Progress Noteson 12-19-2020 Per Diem Physical Therapist Assistant Authentication Interface Message Text Trauma Team, please notify SW when pt is nearing DC. Pt will require a precert. [facility] is following and provided an update. Isabel Morrison, [facility], [facility] [phone] Normal [facility] Per Diem Physical Therapist Assistant Authentication Interface Message Text Normal [facility] Per Diem Physical Therapist Assistant Authentication Interface Message Text Normal [facility] TYPE AND SCREENon 12-19-2020 ABO and Rh group Nom (Bld) Blood group O Rh(D) positive Normal [facility] Comment on above: Performed By: #### T S ####[facility] REABEBHWGL5129 [place], ABSC INT Negative Normal [facility] Comment on above: Performed By: #### T S ####[facility] QGSUFHFJWK5707 [place], BASIC METABOLIC PANELon 11-22 Anion gap [Moles/Vol] 13 mmol/L Normal 5-13 [facility] Comment on above: Performed By: #### Rosa Wells CH8 ####[facility] OZJMLVIINO2490 [place], Calcium [Mass/Vol] 7.2 mg/dL Low 8.4-10.4 [facility] Comment on above: Performed By: #### Rosa Wells, CH8 ####S PATHOLOGY QWSQZKRAQN0132 [place], Chloride [Moles/Vol] 99 mmol/L Normal 97-111 [facility] Comment on above: Performed By: #### Rosa Wells, CH8 ####S PATHOLOGY BPFKUCJAXD1141 [place], CO2 [Moles/Vol] 27 mmol/L Normal 21-30 [facility] Comment on above: Performed By: #### Rosa Wells, CH8 ####S PATHOLOGY IDCVEMWRNI3661 [place], Creatinine [Mass/Vol] 0.78 mg/dL Low 0.80-1.30 [facility] Comment on above: Performed By: #### Rosa Wells, CH8 ####[facility] PATHOLOGY KNGVVMVHBI0306 [place], ESTIMATED GFR (CKD-EPI) 95 mL/min/1.73sqm Normal >=60 [facility] Comment on above: Performed By: #### Rosa Wells, CH8 ####[facility] PATHOLOGY BZWSWWNBSB7489 [place], Glucose [Mass/Vol] 120 mg/dL High 80-116 [facility] Comment on above: Performed By: #### Rosa Wells, CH8 ####S PATHOLOGY ULGLDLLBOC9178 [place], Potassium [Moles/Vol] 4.1 mmol/L Normal 3.3-5.3 [facility] Comment on above: Performed By: #### Rosa Wells, CH8 ####S PATHOLOGY ENMVCJQDRM7501 [place], Sodium [Moles/Vol] 135 mmol/L Normal 135-148 [facility] Comment on above: Performed By: #### Rosa Wells, CH8 ####S PATHOLOGY CIICLQPCOZ9161 [place], Urea nitrogen [Mass/Vol] 8 mg/dL Normal 8-22 [facility] Comment on above: Performed By: #### Rosa Wells, JASON8 ####[facility] PATHOLOGY IBXVVWZSYX9417 [place], COMPLETE BLOOD COUNTon 12-18 Erythrocyte distribution width (RBC) [Ratio] 15.2 % High 11.5-14.5 [facility] Comment on above: Performed By: #### C BC ####[facility] PATHOLOGY WHHJSPWWRZ0686 [place], Hematocrit (Bld) [Volume fraction] 23.8 % Low 41.0-53.0 [facility] Comment on above: Performed By: #### C BC ####[facility] PATHOLOGY JOKGOPISJP9972 [place], Hemoglobin (Bld) [Mass/Vol] 8.0 g/dL Low 13.9-16.3 [facility] Comment on above: Performed By: #### C BC ####[facility] PATHOLOGY LRUZVAHMFE3013 [place], MCH (RBC) [Entitic mass] 29.9 pg Normal 26.0-34.0 [facility] Comment on above: Performed By: #### C BC ####[facility] PATHOLOGY DEOTGLJZNR8987 [place], MCHC (RBC) [Mass/Vol] 33.7 g/dL Normal 32.0-35.9 [facility] Comment on above: Performed By: #### C BC ####[facility] PATHOLOGY [id number] [place], MCV (RBC) [Entitic vol] 89 fL Normal 80-100 [facility] Comment on above: Performed By: #### C BC ####[facility] PATHOLOGY FNNGDUFYUY3454 [place], Platelet mean volume (Bld) [Entitic vol] 6.3 fL Low 7.5-11.2 [facility] Comment on above: Performed By: #### C BC ####[facility] PATHOLOGY VITVQXCIKM2316 [place], Platelets (Bld) [#/Vol] 374 10*3/uL Normal 150-400 [facility] Comment on above: Performed By: #### C BC ####S PATHOLOGY FDHCUOGTNM3204 [place], RBC (Bld) [#/Vol] 2.68 10*6/uL Low 4.50-5.90 [facility] Comment on above: Performed By: #### C BC ####S PATHOLOGY BSOEUZCFXT2268 [place], WBC (Bld) [#/Vol] 8.4 10*3/uL Normal 4.5-11.5 [facility] Comment on above: Performed By: #### C BC ####[facility] PATHOLOGY UZEUFOZHQQ1895 [place], CT CHEST W/O CONTRASTon 11-22 CT CHEST W/O CONTRAST 12.34 (mGy) [facility] Body Dosimetry Phantom 423.87 (mGycm) [facility] 610 Chest,Chest,Chest I1 Normal [facility] Care Plan Noteon 12-18-2020 Per Diem Physical Therapist Assistant Authentication Interface Message Text Normal [facility] Consultson 12-18-2020 Per Diem Physical Therapist Assistant Authentication Interface Message Text Normal [facility] GLUCOSE, FINGERSTICK-IN OFFI CEon 12-18-2020 Glucose [Mass/Vol] 211 mg/dL High 80-116 [facility] Comment on above: Performed By: #### 8 2948 ####NURSING GLUCOSE ZYXXNFP6817 [place], [address] Glucose [Mass/Vol] 252 mg/dL High 80-116 [facility] Comment on above: Performed By: #### 8 2948 ####NURSING GLUCOSE OOXFGZU3625 [place], [address] Glucose [Mass/Vol] 220 mg/dL High 80-116 [facility] Comment on above: Performed By: #### 8 2948 ####NURSING GLUCOSE YPPDOOF5888 [place], [address] Glucose [Mass/Vol] 79 mg/dL Low 80-116 [facility] Comment on above: Performed By: #### 8 2948 ####NURSING GLUCOSE JOUQMUP2307 [place], [address] MAGNESIUMon 12-18-2020 Magnesium [Mass/Vol] 1.8 mg/dL Normal 1.6-2.8 [facility] Comment on above: Performed By: #### Rosa Wells CH8 ####[facility] PATHOLOGY ZTZYQXOWPJ8766 [place], Progress Noteson 12-18-2020 Per Diem Physical Therapist Assistant Authentication Interface Message Text Normal [facility] Per Diem Physical Therapist Assistant Authentication Interface Message Text Normal [facility] Per Diem Physical Therapist Assistant Authentication Interface Message Text Normal [facility] XR CHEST AP OR PA 1 VIEWon 0 12-18-2020 XR CHEST AP OR PA 1 VIEW Normal [facility] BASIC METABOLIC PANELon 11-22 Anion gap [Moles/Vol] 14 mmol/L High 5-13 [facility] Comment on above: Performed By: #### Sofia Shah, MG ####S PATHOLOGY AVABQQDKRS2354 [place], Calcium [Mass/Vol] 7.3 mg/dL Low 8.4-10.4 [facility] Comment on above: Performed By: #### Sofia Shah, MG ####S PATHOLOGY NZVJJIRGRU9712 [place], Chloride [Moles/Vol] 98 mmol/L Normal 97-111 [facility] Comment on above: Performed By: #### Sofia Shah, MG ####S PATHOLOGY QIXWPAUKPR6283 [place], CO2 [Moles/Vol] 26 mmol/L Normal 21-30 [facility] Comment on above: Performed By: #### Sofia H8, MG ####S PATHOLOGY EJWVRPNPAI3290 [place], Creatinine [Mass/Vol] 0.80 mg/dL Normal 0.80-1.30 [facility] Comment on above: Performed By: #### Sofia H8, MG ####S PATHOLOGY RCMTOCRFLX1774 [place], ESTIMATED GFR (CKD-EPI) 94 mL/min/1.73sqm Normal >=60 [facility] Comment on above: Performed By: #### Sofia H8, MG ####S PATHOLOGY HZEYVFQZVJ1948 [place], Glucose [Mass/Vol] 160 mg/dL High 80-116 [facility] Comment on above: Performed By: #### Sofia H8, MG ####S PATHOLOGY TQUSERHCBL5402 [place], Potassium [Moles/Vol] 4.1 mmol/L Normal 3.3-5.3 [facility] Comment on above: Performed By: #### Sofia H8, MG ####S PATHOLOGY LVCYZZHNFP9759 [place], Sodium [Moles/Vol] 134 mmol/L Low 135-148 [facility] Comment on above: Performed By: #### Sofia H8, MG ####S PATHOLOGY HGZWSHZELI1369 [place], Urea nitrogen [Mass/Vol] 10 mg/dL Normal 8-22 [facility] Comment on above: Performed By: #### Sofia H8, MG ####[facility] PATHOLOGY RDBMNHBYOH0201 [place], COMPLETE BLOOD COUNTon 12-17 Erythrocyte distribution width (RBC) [Ratio] 15.4 % High 11.5-14.5 [facility] Comment on above: Performed By: #### C BC ####[facility] PATHOLOGY KARVHNSFHI5615 [place], Hematocrit (Bld) [Volume fraction] 24.0 % Low 41.0-53.0 [facility] Comment on above: Performed By: #### C BC ####S PATHOLOGY PRSYHQWNJH6893 [place], Hemoglobin (Bld) [Mass/Vol] 8.1 g/dL Low 13.9-16.3 [facility] Comment on above: Performed By: #### C BC ####S PATHOLOGY XMKAZVJHCS5793 [place], MCH (RBC) [Entitic mass] 31.0 pg Normal 26.0-34.0 [facility] Comment on above: Performed By: #### C BC ####S PATHOLOGY VNFONDPEHH5829 [place], MCHC (RBC) [Mass/Vol] 33.9 g/dL Normal 32.0-35.9 [facility] Comment on above: Performed By: #### C BC ####S PATHOLOGY INSENRWUNS1794 [place], MCV (RBC) [Entitic vol] 92 fL Normal 80-100 [facility] Comment on above: Performed By: #### C BC ####S PATHOLOGY OKLXHRSEWH5740 [place], Platelet mean volume (Bld) [Entitic vol] 6.6 fL Low 7.5-11.2 [facility] Comment on above: Performed By: #### C BC ####[facility] PATHOLOGY XJZYYZNUWG5472 [place], Platelets (Bld) [#/Vol] 420 10*3/uL High 150-400 [facility] Comment on above: Performed By: #### C BC ####[facility] PATHOLOGY PMIZDOYTTU9789 [place], RBC (Bld) [#/Vol] 2.62 10*6/uL Low 4.50-5.90 [facility] Comment on above: Performed By: #### C BC ####[facility] PATHOLOGY HFOIRWQQEX2895 [place], WBC (Bld) [#/Vol] 8.3 10*3/uL Normal 4.5-11.5 [facility] Comment on above: Performed By: #### C BC ####S PATHOLOGY BEDAQBKVLA2250 [place], Care Plan Noteon 12-17-2020 Per Diem Physical Therapist Assistant Authentication Interface Message Text Normal [facility] GLUCOSE, FINGERSTICK-IN OFFI CEon 12-17-2020 Glucose [Mass/Vol] 147 mg/dL High 80-116 [facility] Comment on above: Result Comment: Javier childress RN, APN, MD Performed By: #### 8 2948 ####NURSING GLUCOSE UJMXDRY9319 [place], [address] Glucose [Mass/Vol] 205 mg/dL High 80-116 [facility] Comment on above: Performed By: #### 8 2948 ####NURSING GLUCOSE GYHEQFK0873 [place], [address] Glucose [Mass/Vol] 263 mg/dL High 80-116 [facility] Comment on above: Performed By: #### 8 2948 ####NURSING GLUCOSE ZLUNKZW0569 [place], [address] Glucose [Mass/Vol] 133 mg/dL High 80-116 [facility] Comment on above: Performed By: #### 8 2948 ####NURSING GLUCOSE NXJWHYL0766 [place], [address] MAGNESIUMon 12-17-2020 Magnesium [Mass/Vol] 1.7 mg/dL Normal 1.6-2.8 [facility] Comment on above: Performed By: #### C H8, MG ####S PATHOLOGY LTISEBNJPB[address] [place] [address], Progress Noteson 12-17-2020 Per Diem Physical Therapist Assistant Authentication Interface Message Text Normal [facility] Per Diem Physical Therapist Assistant Authentication Interface Message Text Normal [facility] Per Diem Physical Therapist Assistant Authentication Interface Message Text Normal [facility] XR CHEST AP OR PA 1 VIEWon 0 12-17-2020 XR CHEST AP OR PA 1 VIEW Normal [facility] BASIC METABOLIC PANELon 06-2 Anion gap [Moles/Vol] 14 mmol/L High 5-13 [facility] Comment on above: Performed By: #### JUSTINA Sales ####S PATHOLOGY BCWZLLKVWV4551 [place], Calcium [Mass/Vol] 7.4 mg/dL Low 8.4-10.4 [facility] Comment on above: Performed By: #### JUSTINA Sales ####[facility] PATHOLOG[facility] ZVOQYRTDVG4081 [place], Chloride [Moles/Vol] 101 mmol/L Normal 97-111 [facility] Comment on above: Performed By: #### JUSTINA Sales ####[facility] PATHOLOGY EDNNCHDQFG2281 [place], CO2 [Moles/Vol] 25 mmol/L Normal 21-30 [facility] Comment on above: Performed By: #### Rosa Wells, JASON8 ####[facility] PATHOLOGY ZSYEEBPVTT[address] [place] [address], Creatinine [Mass/Vol] 0.74 mg/dL Low 0.80-1.30 [facility] Comment on above: Performed By: #### Rosa Wells, JASON8 ####[facility] PATHOLOGY RDUFAWANFK[address] [place] [address], ESTIMATED GFR (CKD-EPI) 97 mL/min/1.73sqm Normal >=60 [facility] Comment on above: Performed By: #### Rosa Wells, JASON8 ####[facility] PATHOLOGY IBSVDIUGTV[address] [place] [address], Glucose [Mass/Vol] 138 mg/dL High 80-116 [facility] Comment on above: Performed By: #### Rosa Wells CH8 ####[facility] PATHOLOGY VHRXPAUXPE[address] [place] [address], Potassium [Moles/Vol] 4.5 mmol/L Normal 3.3-5.3 [facility] Comment on above: Performed By: #### Rosa Wells CH8 ####[facility] PATHOLOGY KZYXYSKWXH[address] [place] [address], Sodium [Moles/Vol] 135 mmol/L Normal 135-148 [facility] Comment on above: Performed By: #### Rosa Wells CH8 ####[facility] PATHOLOGY DJZYFSYBEO[address] [place] [address], Urea nitrogen [Mass/Vol] 10 mg/dL Normal 8-22 [facility] Comment on above: Performed By: #### Rosa Wells CH8 ####[facility] PATHOLOGY OSVIWDSZPD[address] [place] [address], COMPLETE BLOOD COUNTon 12-16 Erythrocyte distribution width (RBC) [Ratio] 15.4 % High 11.5-14.5 [facility] Comment on above: Performed By: #### Sofia BC ####[facility] PATHOLOGY WJDMUIPRIC[address] [place] [address] [place], Hematocrit (Bld) [Volume fraction] 24.6 % Low 41.0-53.0 [facility] Comment on above: Performed By: #### C BC ####[facility] PATHOLOGY UACVONTVLC[address] [place] [address], Hemoglobin (Bld) [Mass/Vol] 8.4 g/dL Low 13.9-16.3 [facility] Comment on above: Performed By: #### C BC ####[facility] PATHOLOGY RTGMVEQDYS[address] [place] [address], MCH (RBC) [Entitic mass] 30.4 pg Normal 26.0-34.0 [facility] Comment on above: Performed By: #### C BC ####[facility] PATHOLOGY YNTLSUQHQJ[address] [place] [address], MCHC (RBC) [Mass/Vol] 34.0 g/dL Normal 32.0-35.9 [facility] Comment on above: Performed By: #### C BC ####[facility] PATHOLOGY GQKCFZOMST[address] [place] [address], MCV (RBC) [Entitic vol] 89 fL Normal 80-100 [facility] Comment on above: Performed By: #### C BC ####[facility] PATHOLOGY FABENINISS[address] [place] [address], Platelet mean volume (Bld) [Entitic vol] 6.8 fL Low 7.5-11.2 [facility] Comment on above: Performed By: #### C BC ####[facility] PATHOLOGY SJJONTWDTO[address] [place] [address], Platelets (Bld) [#/Vol] 482 10*3/uL High 150-400 [facility] Comment on above: Performed By: #### C BC ####[facility] PATHOLOGY OXVQLONJEY[address] [place] [address], RBC (Bld) [#/Vol] 2.75 10*6/uL Low 4.50-5.90 [facility] Comment on above: Performed By: #### C BC ####[facility] YTFESJFCDV1726 [place], WBC (Bld) [#/Vol] 8.1 10*3/uL Normal 4.5-11.5 [facility] Comment on above: Performed By: #### C BC ####S PATHOLOGY [id number] [place], [place], Care Plan Noteon 12-16-2020 Per Diem Physical Therapist Assistant Authentication Interface Message Text Normal [facility] Per Diem Physical Therapist Assistant Authentication Interface Message Text Updated POC Normal [facility] GLUCOSE, FINGERSTICK-IN OFFI CEon 12-16-2020 Glucose [Mass/Vol] 273 mg/dL High 80-116 [facility] Comment on above: Performed By: #### 8 2948 ####NURSING GLUCOSE [id number] [place], [address] Glucose [Mass/Vol] 243 mg/dL High 80-116 [facility] Comment on above: Performed By: #### 8 2948 ####NURSING GLUCOSE [id number] [place], [address] Glucose [Mass/Vol] 181 mg/dL High 80-116 [facility] Comment on above: Result Comment: Javier childress RN, APN, MD Performed By: #### 8 2948 ####NURSING GLUCOSE [id number] [place], [address] Glucose [Mass/Vol] 105 mg/dL Normal 80-116 [facility] Comment on above: Performed By: #### 8 2948 ####NURSING GLUCOSE [id number] [place], [address] MAGNESIUMon 12-16-2020 Magnesium [Mass/Vol] 1.7 mg/dL Normal 1.6-2.8 [facility] Comment on above: Performed By: #### M JASON Wells8 ####[facility] PATHOLOGY [id number] [place], [place], Progress Noteson 12-16-2020 Per Diem Physical Therapist Assistant Authentication Interface Message Text Normal [facility] Per Diem Physical Therapist Assistant Authentication Interface Message Text Normal [facility] XR CHEST AP OR PA 1 VIEWon 0 12-16-2020 XR CHEST AP OR PA 1 VIEW Normal [facility] ABO RH TYPEon 12-15-2020 ABO and Rh group Nom (Bld) Blood group O Rh(D) positive Normal [facility] Comment on above: Performed By: #### Jeovanny SALAS ####[facility] PATHOLOGY [id number] [place], BASIC METABOLIC PANELon 06-2 Anion gap [Moles/Vol] 12 mmol/L Normal 5-13 [facility] Comment on above: Performed By: #### Sofia Shah, MG ####[facility] PATHOLOGY [id number] [place], Calcium [Mass/Vol] 7.2 mg/dL Low 8.4-10.4 [facility] Comment on above: Performed By: #### Sfoia Shah, MG ####[facility] PATHOLOGY [id number] [place], Chloride [Moles/Vol] 101 mmol/L Normal 97-111 [facility] Comment on above: Performed By: #### Sofia Shah, MG ####[facility] PATHOLOGY [id number] [place], CO2 [Moles/Vol] 26 mmol/L Normal 21-30 [facility] Comment on above: Performed By: #### Sofia Shah, MG ####[facility] PATHOLOGY [id number] [place], Creatinine [Mass/Vol] 0.76 mg/dL Low 0.80-1.30 [facility] Comment on above: Performed By: #### Sofia Shah, MG ####[facility] PATHOLOGY [id number] [place], ESTIMATED GFR (CKD-EPI) 96 mL/min/1.73sqm Normal >=60 [facility] Comment on above: Performed By: #### Sofia Shah, MG ####S PATHOLOGY [id number] [place], Glucose [Mass/Vol] 218 mg/dL High 80-116 [facility] Comment on above: Performed By: #### Sofia Shah, MG ####S PATHOLOGY [address]EKYWAOMTX[address] [place] [address], Potassium [Moles/Vol] 4.3 mmol/L Normal 3.3-5.3 [facility] Comment on above: Performed By: #### C H8, MG ####[facility] PATHOLOGY [id number] [place], Sodium [Moles/Vol] 135 mmol/L Normal 135-148 [facility] Comment on above: Performed By: #### C H8, MG ####[facility] PATHOLOGY [id number] [place], Urea nitrogen [Mass/Vol] 12 mg/dL Normal 8-22 [facility] Comment on above: Performed By: #### C Paulie8, MG ####[facility] PATHOLOGY [id number] [place], COMPLETE BLOOD COUNTon 12-15 Erythrocyte distribution width (RBC) [Ratio] 15.2 % High 11.5-14.5 [facility] Comment on above: Performed By: #### C BC ####[facility] PATHOLOGY [id number] [place] [address], Hematocrit (Bld) [Volume fraction] 25.1 % Low 41.0-53.0 [facility] Comment on above: Performed By: #### C BC ####[facility] PATHOLOGY [id number] [place] [address], Hemoglobin (Bld) [Mass/Vol] 8.4 g/dL Low 13.9-16.3 [facility] Comment on above: Performed By: #### C BC ####[facility] PATHOLOGY [id number] [place], MCH (RBC) [Entitic mass] 29.8 pg Normal 26.0-34.0 [facility] Comment on above: Performed By: #### C BC ####S PATHOLOGY [id number] [place], MCHC (RBC) [Mass/Vol] 33.4 g/dL Normal 32.0-35.9 [facility] Comment on above: Performed By: #### C BC ####[facility] PATHOLOGY [id number] [place], MCV (RBC) [Entitic vol] 89 fL Normal 80-100 [facility] Comment on above: Performed By: #### C BC ####[facility] PATHOLOGY [id number] [place], Platelet mean volume (Bld) [Entitic vol] 7.0 fL Low 7.5-11.2 [facility] Comment on above: Performed By: #### C BC ####[facility] PATHOLOGY [id number] [place] [address], Platelets (Bld) [#/Vol] 548 10*3/uL High 150-400 [facility] Comment on above: Performed By: #### C BC ####[facility] PATHOLOGY [id number] [place] [address], RBC (Bld) [#/Vol] 2.82 10*6/uL Low 4.50-5.90 [facility] Comment on above: Performed By: #### C BC ####[facility] PATHOLOGY [id number] [place], WBC (Bld) [#/Vol] 8.4 10*3/uL Normal 4.5-11.5 [facility] Comment on above: Performed By: #### C BC ####[facility] PATHOLOGY [id number] [place] [address], Care Plan Noteon 12-15-2020 Per Diem Physical Therapist Assistant Authentication Interface Message Text Normal [facility] Consultson 12-15-2020 Per Diem Physical Therapist Assistant Authentication Interface Message Text Normal [facility] GLUCOSE, FINGERSTICK-IN OFFI CEon 12-15-2020 Glucose [Mass/Vol] 149 mg/dL High 80-116 [facility] Comment on above: Result Comment: Javier childress RN, APN, MD Performed By: #### 8 0576 ####NURSING GLUCOSE [id number] [place], Glucose [Mass/Vol] 138 mg/dL High 80-116 [facility] Comment on above: Performed By: #### 8 0351 ####NURSING GLUCOSE [id number] [place], [address] Glucose [Mass/Vol] 144 mg/dL High 80-116 [facility] Comment on above: Performed By: #### 8 2948 ####NURSING GLUCOSE QHEGGJE0155 [place], [address] Glucose [Mass/Vol] 198 mg/dL High 80-116 [facility] Comment on above: Performed By: #### 8 2948 ####NURSING GLUCOSE EELPKMF7854 [place], [address] Glucose [Mass/Vol] 270 mg/dL High 80-116 [facility] Comment on above: Result Comment: Javier childress RN, APN, MD Performed By: #### 8 2948 ####NURSING GLUCOSE WIGELWS2603 [place], [address] MAGNESIUMon 12-15-2020 Magnesium [Mass/Vol] 1.7 mg/dL Normal 1.6-2.8 [facility] Comment on above: Performed By: #### C H8, MG ####[facility] PATH[facility] [id number] [place] [address], Progress Noteson 12-15-2020 Per Diem Physical Therapist Assistant Authentication Interface Message Text Normal [facility] Per Diem Physical Therapist Assistant Authentication Interface Message Text SW continue to follow for DC planning. Pt to be DC to [facility]. Will need a precert. Please notify SW when pt is nearing DC. No weekend DC. JERMAINE LM with brother Ed, alerting him to the above. Isabel Morrison, [facility], FINANCIAL AID DIRECTOR [phone] Normal [facility] Per Diem Physical Therapist Assistant Authentication Interface Message Text Normal [facility] TYPE AND SCREENon 12-15-2020 ABO and Rh group Nom (Bld) Blood group O Rh(D) positive Normal [facility] Comment on above: Performed By: #### T S ####[facility] [id number] [place], ABO and Rh group Nom (Bld) No Previous Results Normal [facility] Comment on above: Performed By: #### T S ####[facility] [id number] [place], ABSC INT Negative Normal [facility] Comment on above: Performed By: #### T S ####[facility] [id number] [place], XR CHEST AP OR PA 1 VIEWon 0 12-15-2020 XR CHEST AP OR PA 1 VIEW Normal [facility] Care Plan Noteon 12-14-2020 Per Diem Physical Therapist Assistant Authentication Interface Message Text Normal [facility] Consultson 12-14-2020 Per Diem Physical Therapist Assistant Authentication Interface Message Text Normal [facility] GLUCOSE, FINGERSTICK-IN OFFI CEon 12-14-2020 Glucose [Mass/Vol] 184 mg/dL High 80-116 [facility] Comment on above: Performed By: #### 8 2948 ####NURSING GLUCOSE LFPHRYQ4636 [place], [address] Glucose [Mass/Vol] 218 mg/dL High 80-116 [facility] Comment on above: Performed By: #### 8 2948 ####NURSING GLUCOSE [id number] [place], [address] Glucose [Mass/Vol] 168 mg/dL High 80-116 [facility] Comment on above: Performed By: #### 8 2948 ####NURSING GLUCOSE AYNSMTN9866 [place], [address] Progress Noteson 12-14-2020 Per Diem Physical Therapist Assistant Authentication Interface Message Text Normal [facility] Per Diem Physical Therapist Assistant Authentication Interface Message Text Normal [facility] Per Diem Physical Therapist Assistant Authentication Interface Message Text Normal [facility] XR CHEST AP OR PA 1 VIEWon 0 12-14-2020 XR CHEST AP OR PA 1 VIEW Normal [facility] BASIC METABOLIC PANELon 11-22 Anion gap [Moles/Vol] 14 mmol/L High 5-13 [facility] Comment on above: Performed By: #### C H8, MG ####[facility] PNLXMUMUVI7831 [place], Calcium [Mass/Vol] 7.3 mg/dL Low 8.4-10.4 [facility] Comment on above: Performed By: #### C H8, MG ####[facility] [id number] [place], Chloride [Moles/Vol] 101 mmol/L Normal 97-111 [facility] Comment on above: Performed By: #### C H8, MG ####[facility] [id number] [place], CO2 [Moles/Vol] 22 mmol/L Normal 21-30 [facility] Comment on above: Performed By: #### C H8, MG ####[facility] [id number] [place], Creatinine [Mass/Vol] 0.76 mg/dL Low 0.80-1.30 [facility] Comment on above: Performed By: #### C H8, MG ####S PATHOLOGY [id number] [place], ESTIMATED GFR (CKD-EPI) 96 mL/min/1.73sqm Normal >=60 [facility] Comment on above: Performed By: #### C H8, MG ####S PATHOLOGY PHMASOKMYC6999 [place], Glucose [Mass/Vol] 218 mg/dL High 80-116 [facility] Comment on above: Performed By: #### C H8, MG ####S PATHOLOGY [id number] [place], Potassium [Moles/Vol] 4.7 mmol/L Normal 3.3-5.3 [facility] Comment on above: Result Comment: Hemo lysis present Performed By: #### C H8, MG ####[facility] [id number] [place], Sodium [Moles/Vol] 132 mmol/L Low 135-148 [facility] Comment on above: Performed By: #### C H8, MG ####[facility] [id number] [place], Urea nitrogen [Mass/Vol] 16 mg/dL Normal 8-22 [facility] Comment on above: Performed By: #### C H8, MG ####[facility] [id number] [place], COMPLETE BLOOD COUNTon 12-13 Erythrocyte distribution width (RBC) [Ratio] 15.4 % High 11.5-14.5 [facility] Comment on above: Performed By: #### C BC ####[facility] PATHOLOGY [id number] [place], Hematocrit (Bld) [Volume fraction] 24.9 % Low 41.0-53.0 [facility] Comment on above: Performed By: #### C BC ####[facility] PATHOLOGY [id number] [place], Hemoglobin (Bld) [Mass/Vol] 8.5 g/dL Low 13.9-16.3 [facility] Comment on above: Performed By: #### C BC ####[facility] PATHOLOGY [id number] [place], MCH (RBC) [Entitic mass] 30.6 pg Normal 26.0-34.0 [facility] Comment on above: Performed By: #### C BC ####[facility] PATHOLOGY [id number] [place] [address], MCHC (RBC) [Mass/Vol] 34.1 g/dL Normal 32.0-35.9 [facility] Comment on above: Performed By: #### C BC ####[facility] PATHOLOGY [id number] [place], MCV (RBC) [Entitic vol] 90 fL Normal 80-100 [facility] Comment on above: Performed By: #### C BC ####[facility] PATHOLOGY [id number] [place], Platelet mean volume (Bld) [Entitic vol] 7.1 fL Low 7.5-11.2 [facility] Comment on above: Performed By: #### C BC ####[facility] PATHOLOGY [id number] [place], Platelets (Bld) [#/Vol] 597 10*3/uL High 150-400 [facility] Comment on above: Performed By: #### C BC ####[facility] PATHOLOGY [id number] [place], RBC (Bld) [#/Vol] 2.77 10*6/uL Low 4.50-5.90 [facility] Comment on above: Performed By: #### C BC ####[facility] [id number] [place], WBC (Bld) [#/Vol] 10.0 10*3/uL Normal 4.5-11.5 [facility] Comment on above: Performed By: #### C BC ####[facility] [id number] [place], CT HEAD W/O CONTRASTon 12-13 CT HEAD W/O CONTRAST Normal [facility] Care Plan Noteon 12-13-2020 Per Diem Physical Therapist Assistant Authentication Interface Message Text Normal [facility] Consultson 12-13-2020 Per Diem Physical Therapist Assistant Authentication Interface Message Text Normal [facility] Per Diem Physical Therapist Assistant Authentication Interface Message Text Normal [facility] GLUCOSE, FINGERSTICK-IN OFFI CEon 12-13-2020 Glucose [Mass/Vol] 256 mg/dL High 80-116 [facility] Comment on above: Performed By: #### 8 2948 ####NURSING GLUCOSE [id number] [place], [address] Glucose [Mass/Vol] 231 mg/dL High 80-116 [facility] Comment on above: Performed By: #### 8 2948 ####NURSING GLUCOSE [id number] [place], [address] Glucose [Mass/Vol] 216 mg/dL High 80-116 [facility] Comment on above: Performed By: #### 8 2948 ####NURSING GLUCOSE [id number] [place], [address] Glucose [Mass/Vol] 221 mg/dL High 80-116 [facility] Comment on above: Performed By: #### 8 2948 ####NURSING GLUCOSE [id number] [place], [address] MAGNESIUMon 12-13-2020 Magnesium [Mass/Vol] 1.9 mg/dL Normal 1.6-2.8 [facility] Comment on above: Result Comment: Hemo lysis present Performed By: #### C H8, MG ####[facility] [id number] [place], Progress Noteson 12-13-2020 Per Diem Physical Therapist Assistant Authentication Interface Message Text SW obtained SS Number: [id number] Pt has been accepted to [facility]. Please alert SW when pt is nearing DC. Pt with +Chest Tube. [id number] submitted in GLADIS Morrison [facility], FINANCIAL AID DIRECTOR [phone] Normal [facility] Per Diem Physical Therapist Assistant Authentication Interface Message Text Normal [facility] Per Diem Physical Therapist Assistant Authentication Interface Message Text Normal [facility] XR CHEST AP OR PA 1 VIEWon 0 12-13-2020 XR CHEST AP OR PA 1 VIEW Normal [facility] BASIC METABOLIC PANELon 11-22 Anion gap [Moles/Vol] 12 mmol/L Normal 5-13 [facility] Comment on above: Performed By: #### C H8, PHOS, MG ####[facility] [id number] [place], Calcium [Mass/Vol] 7.3 mg/dL Low 8.4-10.4 [facility] Comment on above: Performed By: #### C H8, PHOS, MG ####[facility] [id number] [place], Chloride [Moles/Vol] 103 mmol/L Normal 97-111 [facility] Comment on above: Performed By: #### C H8, PHOS, MG ####[facility] NUAVALINGK5125 [place], CO2 [Moles/Vol] 22 mmol/L Normal 21-30 [facility] Comment on above: Performed By: #### C H8, PHOS, MG ####[facility] [id number] [place], Creatinine [Mass/Vol] 0.85 mg/dL Normal 0.80-1.30 [facility] Comment on above: Performed By: #### C H8, PHOS, MG ####[facility] [id number] [place], ESTIMATED GFR (CKD-EPI) 92 mL/min/1.73sqm Normal >=60 [facility] Comment on above: Performed By: #### C H8, PHOS, MG ####[facility] [id number] [place], Glucose [Mass/Vol] 196 mg/dL High 80-116 [facility] Comment on above: Performed By: #### C H8, PHOS, MG ####[facility] [id number] [place], Potassium [Moles/Vol] 4.2 mmol/L Normal 3.3-5.3 [facility] Comment on above: Performed By: #### C HMarilee, PHOS, MG ####[facility] GXOLFOOGUC7383 [place], Sodium [Moles/Vol] 133 mmol/L Low 135-148 [facility] Comment on above: Performed By: #### Sofia Shah PHOS, MG ####[facility] [id number] [place], Urea nitrogen [Mass/Vol] 20 mg/dL Normal 8-22 [facility] Comment on above: Performed By: #### C HMarilee PHOS, MG ####[facility] [id number] [place], COMPLETE BLOOD COUNTon 12-12 Erythrocyte distribution width (RBC) [Ratio] 15.2 % High 11.5-14.5 [facility] Comment on above: Performed By: #### C BC ####[facility] [id number] [place], Hematocrit (Bld) [Volume fraction] 23.7 % Low 41.0-53.0 [facility] Comment on above: Performed By: #### C BC ####[facility] [id number] [place], Hemoglobin (Bld) [Mass/Vol] 7.6 g/dL Low 13.9-16.3 [facility] Comment on above: Performed By: #### C BC ####[facility] [id number] [place], MCH (RBC) [Entitic mass] 29.1 pg Normal 26.0-34.0 [facility] Comment on above: Performed By: #### C BC ####[facility] PATHOLOGY [id number] [place], MCHC (RBC) [Mass/Vol] 32.2 g/dL Normal 32.0-35.9 [facility] Comment on above: Performed By: #### C BC ####[facility] PATHOLOGY [id number] [place], MCV (RBC) [Entitic vol] 91 fL Normal 80-100 [facility] Comment on above: Performed By: #### C BC ####[facility] PATHOLOGY [id number] [place], Platelet mean volume (Bld) [Entitic vol] 7.0 fL Low 7.5-11.2 [facility] Comment on above: Performed By: #### C BC ####[facility] PATHOLOGY [id number] [place], Platelets (Bld) [#/Vol] 593 10*3/uL High 150-400 [facility] Comment on above: Performed By: #### C BC ####[facility] PATHOLOGY [id number] [place], RBC (Bld) [#/Vol] 2.62 10*6/uL Low 4.50-5.90 [facility] Comment on above: Performed By: #### C BC ####[facility] PATHOLOGY [id number] [place], WBC (Bld) [#/Vol] 13.6 10*3/uL High 4.5-11.5 [facility] Comment on above: Performed By: #### C BC ####[facility] PATHOLOGY [id number] [place] CHEST W/O CONTRASTon 11-22 CT CHEST W/O CONTRAST Normal [facility] Care Plan Noteon 12-12-2020 Per Diem Physical Therapist Assistant Authentication Interface Message Text Normal [facility] Consultson 12-12-2020 Per Diem Physical Therapist Assistant Authentication Interface Message Text Normal [facility] Per Diem Physical Therapist Assistant Authentication Interface Message Text Normal [facility] GLUCOSE, FINGERSTICK-IN OFFI CEon 12-12-2020 Glucose [Mass/Vol] 264 mg/dL High 80-116 [facility] Comment on above: Result Comment: Javier childress RN, APN, MD Performed By: #### 8 2948 ####NURSING GLUCOSE [id number] [place], [address] Glucose [Mass/Vol] 250 mg/dL High 80-116 [facility] Comment on above: Result Comment: Javier childress RN, APN, MD Performed By: #### 8 2948 ####NURSING GLUCOSE [id number] [place], [address] Glucose [Mass/Vol] 217 mg/dL High 80-116 [facility] Comment on above: Result Comment: Javier childress RN, APN, MD Performed By: #### 8 2948 ####NURSING GLUCOSE [id number] [place], [address] Glucose [Mass/Vol] 163 mg/dL High 80-116 [facility] Comment on above: Result Comment: Javier childress RN, APN, MD Performed By: #### 8 2948 ####NURSING GLUCOSE ECILNSG8768 [place], [address] Glucose [Mass/Vol] 270 mg/dL High 80-116 [facility] Comment on above: Performed By: #### 8 2948 ####NURSING GLUCOSE [id number] [place], [address] MAGNESIUMon 12-12-2020 Magnesium [Mass/Vol] 2.1 mg/dL Normal 1.6-2.8 [facility] Comment on above: Performed By: #### Sofia Shah, PHOS, MG ####[facility] [id number] [place], PHOSPHORUSon 12-12-2020 Phosphate [Mass/Vol] 3.0 mg/dL Normal 2.5-4.8 [facility] Comment on above: Performed By: #### Sofia Shah, PHOS, MG ####[facility] [id number] [place], Progress Noteson 12-12-2020 Per Diem Physical Therapist Assistant Authentication Interface Message Text Normal [facility] Per Diem Physical Therapist Assistant Authentication Interface Message Text Normal [facility] XR CHEST AP OR PA 1 VIEWon 0 12-12-2020 XR CHEST AP OR PA 1 VIEW Normal [facility] ANTI FXA-LMW HEPARINon 12-11 ANTI FXA-LMW HEPARIN ASSAY 0.04 IU/mL Normal [facility] Comment on above: Order Comment: The r ecommended therapeutic range for treatment of thrombosis with Low Molecular Weight Heparin is 0.5 - 1.0 IU/mLThe recommended range for VTE prophylaxis with Low Molecular Weight Heparin is 0.2 - 0.4 IU/mL. Performed By: #### A XL ####S PATHOLOGY [id number] [place], BASIC METABOLIC PANELon 11-22 Anion gap [Moles/Vol] 15 mmol/L High 5-13 [facility] Comment on above: Performed By: #### Rosa Wells CH8 ####[facility] PATHOLOGY SMYKAVPUDY7273 [place], Calcium [Mass/Vol] 7.3 mg/dL Low 8.4-10.4 [facility] Comment on above: Performed By: #### Rosa Wells, JASON8 ####S PATHOLOGY [id number] [place], Chloride [Moles/Vol] 99 mmol/L Normal 97-111 [facility] Comment on above: Performed By: #### Rosa Wells, CH8 ####S PATHOLOGY [id number] [place], CO2 [Moles/Vol] 19 mmol/L Low 21-30 [facility] Comment on above: Performed By: #### Rosa Wells, CH8 ####S PATHOLOGY [id number] [place], Creatinine [Mass/Vol] 0.79 mg/dL Low 0.80-1.30 [facility] Comment on above: Performed By: #### Rosa Wells, CH8 ####S PATHOLOGY [id number] [place], ESTIMATED GFR (CKD-EPI) 95 mL/min/1.73sqm Normal >=60 [facility] Comment on above: Performed By: #### Rosa Wells, JASON8 ####S PATHOLOGY [id number] [place], Glucose [Mass/Vol] 212 mg/dL High 80-116 [facility] Comment on above: Performed By: #### Rosa Wells, JASON8 ####S PATHOLOGY [id number] [place], [place], Potassium [Moles/Vol] 5.0 mmol/L Normal 3.3-5.3 [facility] Comment on above: Result Comment: Hemo lysis present Performed By: #### Rosa Wells, JASON8 ####[facility] PATHOLOGY [id number] [place] [address], Sodium [Moles/Vol] 128 mmol/L Low 135-148 [facility] Comment on above: Performed By: #### Rosa Wells, JASON8 ####[facility] PATHOLOGY LSSESXYQYY[address] [place] [address], Urea nitrogen [Mass/Vol] 17 mg/dL Normal 8-22 [facility] Comment on above: Performed By: #### Rosa Wells, JASON8 ####[facility] PATHOLOGY [id number] [place] [address], COMPLETE BLOOD COUNTon 12-11 Erythrocyte distribution width (RBC) [Ratio] 15.3 % High 11.5-14.5 [facility] Comment on above: Performed By: #### C BC ####S PATHOLOGY DRULIBLSGV2721 [place], [place], Hematocrit (Bld) [Volume fraction] 29.4 % Low 41.0-53.0 [facility] Comment on above: Performed By: #### C BC ####S PATHOLOGY ZAPWYJXNCO[address] [place] [address], Hemoglobin (Bld) [Mass/Vol] 9.7 g/dL Low 13.9-16.3 [facility] Comment on above: Performed By: #### C BC ####S PATHOLOGY [id number] [place] [address], MCH (RBC) [Entitic mass] 29.6 pg Normal 26.0-34.0 [facility] Comment on above: Performed By: #### C BC ####[facility] PATHOLOGY [id number] [place], MCHC (RBC) [Mass/Vol] 32.9 g/dL Normal 32.0-35.9 [facility] Comment on above: Performed By: #### C BC ####[facility] PATHOLOGY [id number] [place], MCV (RBC) [Entitic vol] 90 fL Normal 80-100 [facility] Comment on above: Performed By: #### C BC ####[facility] PATHOLOGY [id number] [place], Platelet mean volume (Bld) [Entitic vol] 7.3 fL Low 7.5-11.2 [facility] Comment on above: Performed By: #### C BC ####[facility] PATHOLOGY [id number] [place] [address], Platelets (Bld) [#/Vol] 433 10*3/uL High 150-400 [facility] Comment on above: Performed By: #### C BC ####[facility] PATHOLOGY EMLUMRVLDP[address] [place] [address], RBC (Bld) [#/Vol] 3.26 10*6/uL Low 4.50-5.90 [facility] Comment on above: Performed By: #### C BC ####[facility] PATHOLOGY [address]VCYTQLOGZ[address] [place] [address], WBC (Bld) [#/Vol] 14.5 10*3/uL High 4.5-11.5 [facility] Comment on above: Performed By: #### C BC ####[facility] PATHOLOGY [id number] [place], [place], Care Plan Noteon 12-11-2020 Per Diem Physical Therapist Assistant Authentication Interface Message Text Normal [facility] Consultson 12-11-2020 Per Diem Physical Therapist Assistant Authentication Interface Message Text Normal [facility] Per Diem Physical Therapist Assistant Authentication Interface Message Text Normal [facility] Per Diem Physical Therapist Assistant Authentication Interface Message Text Normal [facility] GLUCOSE, FINGERSTICK-IN OFFI CEon 12-11-2020 Glucose [Mass/Vol] 242 mg/dL High 80-116 [facility] Comment on above: Result Comment: Javier childress RN, APN, MD Performed By: #### 8 2948 ####NURSING GLUCOSE MUKDQBQ4349 [place], [address] Glucose [Mass/Vol] 219 mg/dL High 80-116 [facility] Comment on above: Result Comment: Javier childress RN, APN, MD Performed By: #### 8 2948 ####NURSING GLUCOSE SXACNDO8108 [place], [address] Glucose [Mass/Vol] 194 mg/dL High 80-116 [facility] Comment on above: Result Comment: Javier childress RN, APN, MD Performed By: #### 8 2948 ####NURSING GLUCOSE PMNRBFE1763 [place], [address] MAGNESIUMon 12-11-2020 Magnesium [Mass/Vol] 1.8 mg/dL Normal 1.6-2.8 [facility] Comment on above: Result Comment: Hemo lysis present Performed By: #### M G, CH8 ####[facility] LABAKPAMWV5693 [place], [place], Progress Noteson 12-11-2020 Per Diem Physical Therapist Assistant Authentication Interface Message Text Normal [facility] Per Diem Physical Therapist Assistant Authentication Interface Message Text Chart and images reviewed with Dr. Loyd. Pigtail placed 12/08; pleural cultures +strep. No recent CT chest after tube placement. Please perform non-contrast CT chest Full note to follow pending results Nba Chow PA-C Normal [facility] Per Diem Physical Therapist Assistant Authentication Interface Message Text Normal [facility] Per Diem Physical Therapist Assistant Authentication Interface Message Text Normal [facility] Per Diem Physical Therapist Assistant Authentication Interface Message Text Normal [facility] VANCOMYCIN TROUGHon 12-12-19 21 VANC TR 13.1 ug/mL Normal 10.0-20.0 [facility] Comment on above: Performed By: #### V ANC TR ####[facility] [id number] [place], XR CHEST AP OR PA 1 VIEWon 0 12-11-2020 XR CHEST AP OR PA 1 VIEW Normal [facility] Care Plan Noteon 12-10-2020 Per Diem Physical Therapist Assistant Authentication Interface Message Text Normal [facility] GLUCOSE, FINGERSTICK-IN OFFI CEon 12-10-2020 Glucose [Mass/Vol] 252 mg/dL High 80-116 [facility] Comment on above: Result Comment: Javier childress RN, APN, MD Performed By: #### 8 2948 ####NURSING GLUCOSE HUWRAGG2284 [place], [address] Glucose [Mass/Vol] 198 mg/dL High 80-116 [facility] Comment on above: Performed By: #### 8 2948 ####NURSING GLUCOSE NINDSKS7243 [place], [address] Glucose [Mass/Vol] 269 mg/dL High 80-116 [facility] Comment on above: Performed By: #### 8 2948 ####NURSING GLUCOSE KKXNFWV6465 [place], [address] Glucose [Mass/Vol] 194 mg/dL High 80-116 [facility] Comment on above: Performed By: #### 8 2948 ####NURSING GLUCOSE WYHYJFR8226 [place], [address] Glucose [Mass/Vol] 186 mg/dL High 80-116 [facility] Comment on above: Result Comment: Javier childress RN, APN, MD Performed By: #### 8 2948 ####NURSING GLUCOSE JMLKGZQ3606 [place], [address] Progress Noteson 12-10-2020 Per Diem Physical Therapist Assistant Authentication Interface Message Text Normal [facility] Per Diem Physical Therapist Assistant Authentication Interface Message Text Normal [facility] Per Diem Physical Therapist Assistant Authentication Interface Message Text Normal [facility] VANCOMYCIN TROUGHon 12-11-19 21 VANC TR 14.2 ug/mL Normal 10.0-20.0 [facility] Comment on above: Performed By: #### V ANC TR ####[facility] [id number] [place], [address] ANTI FXA-LMW HEPARINon 12-09 ANTI FXA-LMW HEPARIN ASSAY 0.24 IU/mL Normal [facility] Comment on above: Order Comment: The r ecommended therapeutic range for treatment of thrombosis with Low Molecular Weight Heparin is 0.5 - 1.0 IU/mLThe recommended range for VTE prophylaxis with Low Molecular Weight Heparin is 0.2 - 0.4 IU/mL. Performed By: #### A XL ####S PATHOLOGY [id number] [place], BASIC METABOLIC PANELon 06- Anion gap [Moles/Vol] 12 mmol/L Normal 5-13 [facility] Comment on above: Performed By: #### V AL, PHOS, MG, CH8 ####[facility] PATHOLOGY [id number] [place], Calcium [Mass/Vol] 7.4 mg/dL Low 8.4-10.4 [facility] Comment on above: Performed By: #### V AL, PHOS, MG, CH8 ####[facility] PATHOLOGY EDGDNMXVBI2483 [place], Chloride [Moles/Vol] 98 mmol/L Normal 97-111 [facility] Comment on above: Performed By: #### V AL, PHOS, MG, CH8 ####[facility] PATHOLOGY OUCRQCLLSY8817 [place], CO2 [Moles/Vol] 26 mmol/L Normal 21-30 [facility] Comment on above: Performed By: #### V AL, PHOS, MG, CH8 ####[facility] PATHOLOGY WCDKJIEFIN6288 [place], Creatinine [Mass/Vol] 0.87 mg/dL Normal 0.80-1.30 [facility] Comment on above: Performed By: #### V AL, PHOS, MG, CH8 ####S PATHOLOGY RXTYYRAUKQ2920 [place], ESTIMATED GFR (CKD-EPI) 91 mL/min/1.73sqm Normal >=60 [facility] Comment on above: Performed By: #### V AL, PHOS, MG, CH8 ####S PATHOLOGY CWVKDUOEEB5371 [place], Glucose [Mass/Vol] 265 mg/dL High 80-116 [facility] Comment on above: Performed By: #### V AL, PHOS, MG, CH8 ####S PATHOLOGY CKPBWZSOWV9720 [place], Potassium [Moles/Vol] 3.8 mmol/L Normal 3.3-5.3 [facility] Comment on above: Performed By: #### V AL, PHOS, MG, CH8 ####S PATHOLOGY IWZUSFASPU5432 [place], Sodium [Moles/Vol] 132 mmol/L Low 135-148 [facility] Comment on above: Performed By: #### V AL, PHOS, MG, CH8 ####[facility] PATHOLOGY ISNDBMRMMK1015 [place], Urea nitrogen [Mass/Vol] 22 mg/dL Normal 8-22 [facility] Comment on above: Performed By: #### V AL, PHOS, MG, CH8 ####[facility] PATHOLOGY LNSVUCDIFZ[address] [place] [address], CALCIUM, IONIZEDon CR ICA 1.09 mmol/L Low 1.10-1.40 [facility] Comment on above: Performed By: #### C R ICA ####[facility] PATHOLOGY QCOMBDZWVO[address] [place] [address], COMPLETE BLOOD COUNTon 12-09 Erythrocyte distribution width (RBC) [Ratio] 15.0 % High 11.5-14.5 [facility] Comment on above: Performed By: #### C BC ####[facility] MCYPQHRTRI6398 [place], Hematocrit (Bld) [Volume fraction] 24.1 % Low 41.0-53.0 [facility] Comment on above: Performed By: #### C BC ####S PATHOLOGY ZCKNVUIEDP0046 [place], Hemoglobin (Bld) [Mass/Vol] 8.1 g/dL Low 13.9-16.3 [facility] Comment on above: Performed By: #### C BC ####S PATHOLOGY ADGNVIPZOS9[address] [place] [address], MCH (RBC) [Entitic mass] 30.1 pg Normal 26.0-34.0 [facility] Comment on above: Performed By: #### C BC ####[facility] PATHOLOGY RLYFITBKKQ0225 [place], MCHC (RBC) [Mass/Vol] 33.5 g/dL Normal 32.0-35.9 [facility] Comment on above: Performed By: #### C BC ####[facility] PATHOLOGY GAKCPQDEOV6402 [place], MCV (RBC) [Entitic vol] 90 fL Normal 80-100 [facility] Comment on above: Performed By: #### C BC ####[facility] PATHOLOGY IHNGSTPAYS1764 [place], Platelet mean volume (Bld) [Entitic vol] 8.2 fL Normal 7.5-11.2 [facility] Comment on above: Performed By: #### C BC ####[facility] PATHOLOGY SYUHPZHMUE[address] [place] [address], Platelets (Bld) [#/Vol] 428 10*3/uL High 150-400 [facility] Comment on above: Performed By: #### C BC ####[facility] PATHOLOGY [id number] [place], RBC (Bld) [#/Vol] 2.68 10*6/uL Low 4.50-5.90 [facility] Comment on above: Performed By: #### C BC ####[facility] PATHOLOGY [id number] [place], WBC (Bld) [#/Vol] 16.2 10*3/uL High 4.5-11.5 [facility] Comment on above: Performed By: #### C BC ####S PATHOLOGY HSQKNWWTNE7019 [place], Care Plan Noteon 12-09-2020 Per Diem Physical Therapist Assistant Authentication Interface Message Text Normal [facility] GLUCOSE, FINGERSTICK-IN OFFI CEon 12-09-2020 Glucose [Mass/Vol] 319 mg/dL High 80-116 [facility] Comment on above: Performed By: #### 8 2948 ####NURSING GLUCOSE LJGQSPL7416 [place], [address] Glucose [Mass/Vol] 304 mg/dL High 80-116 [facility] Comment on above: Performed By: #### 8 2948 ####NURSING GLUCOSE XDUKMXB1057 [place], [address] Glucose [Mass/Vol] 285 mg/dL High 80-116 [facility] Comment on above: Performed By: #### 8 2948 ####NURSING GLUCOSE ORBAEUU0569 [place], [address] Glucose [Mass/Vol] 279 mg/dL High 80-116 [facility] Comment on above: Performed By: #### 8 2948 ####NURSING GLUCOSE YVDXAGH8256 [place], [address] Glucose [Mass/Vol] 368 mg/dL High 80-116 [facility] Comment on above: Performed By: #### 8 2948 ####NURSING GLUCOSE OKTQIRO[address] [place] [address], [address] MAGNESIUMon 12-09-2020 Magnesium [Mass/Vol] 2.0 mg/dL Normal 1.6-2.8 [facility] Comment on above: Performed By: #### V AL, PHOS, MG, CH8 ####[facility] WFOIHKOLSN1064 [place], PHOSPHORUSon 12-09-2020 Phosphate [Mass/Vol] 2.9 mg/dL Normal 2.5-4.8 [facility] Comment on above: Performed By: #### Mikala AL, PHOS, MG, CH8 ####[facility] LSVMEYXLZS9327 [place], Progress Noteson 12-09-2020 Per Diem Physical Therapist Assistant Authentication Interface Message Text Patient received the Sacrament of the ANOINTING OF THE SICK from Fr. Shaggy Ornelas ([phone]). Normal [facility] Per Diem Physical Therapist Assistant Authentication Interface Message Text Normal [facility] VALPROIC ACIDon 12-09-2020 FRANCOISE 19 ug/mL Low 50-100 [facility] Comment on above: Performed By: #### NEREIDA RICKETTS, , CH8 ####[facility] AUFXIVVPAZ5732 [place], XR CHEST AP OR PA 1 VIEWon 0 12-09-2020 XR CHEST AP OR PA 1 VIEW Normal [facility] AEROBIC BODY FLUID CULTUREon 12-08-2020 AEROBIC BODY FLUID CULTURE Normal [facility] Comment on above: Performed By: #### Sofia BDYFLD ####[facility] Ritkijqwv6423 [place], [place] BASIC METABOLIC PANELon 11-21 Anion gap [Moles/Vol] 13 mmol/L Normal 5-13 [facility] Comment on above: Performed By: #### JUSTINA Sales, PHOS ####[facility] TATVJEORAQ9550 [place], Calcium [Mass/Vol] 7.5 mg/dL Low 8.4-10.4 [facility] Comment on above: Performed By: #### JUSTINA Sales, PHOS ####[facility] XKGWSEVSXX1567 [place], Chloride [Moles/Vol] 97 mmol/L Normal 97-111 [facility] Comment on above: Performed By: #### JUSTINA Sales, PHOS ####S PATHOLOGY DVOQGOQLFM1392 [place], CO2 [Moles/Vol] 28 mmol/L Normal 21-30 [facility] Comment on above: Performed By: #### JUSTINA Sales, PHOS ####[facility] [id number] [place], Creatinine [Mass/Vol] 1.09 mg/dL Normal 0.80-1.30 [facility] Comment on above: Performed By: ###JUSTINA Byrd, HASMUKHS ####[facility] ZHPVINFVGE0566 [place], ESTIMATED GFR (CKD-EPI) 71 mL/min/1.73sqm Normal >=60 [facility] Comment on above: Performed By: #### JUSTINA Sales, PHOS ####S PATHOLOGY CWEHOYFDQT2797 [place], Glucose [Mass/Vol] 246 mg/dL High 80-116 [facility] Comment on above: Performed By: #### JUSTINA Sales, PHOS ####S PATHOLOGY PZYEPXRXLO5810 [place], Potassium [Moles/Vol] 3.7 mmol/L Normal 3.3-5.3 [facility] Comment on above: Performed By: #### JUSTINA Sales, PHOS ####S PATHOLOGY DPWVAQWADM9828 [place], Sodium [Moles/Vol] 134 mmol/L Low 135-148 [facility] Comment on above: Performed By: #### JUSTINA Sales, NEREIDA ####S PATHOLOGY AXYMXBLYGI3153 [place], Urea nitrogen [Mass/Vol] 25 mg/dL High 8-22 [facility] Comment on above: Performed By: #### JUSTINA Sales, HASMUKHS ####S PATHOLOGY LGCPXVBOFH4318 [place], BLOOD GAS, ARTERIALon 2020 CR LESA 4.9 mmol/L High -2.0-2.0 [facility] Comment on above: Performed By: #### C R BGA ####S PATHOLOGY KJBNVKYGOY9093 [place], CR PCO2 39.6 mm Hg Normal 35.0-45.0 [facility] Comment on above: Performed By: #### C R BGA ####S PATHOLOGY JUVMJHKKIW2773 [place], CR PHA 7.471 High 7.35-7.45 [facility] Comment on above: Performed By: #### C R BGA ####S PATHOLOGY ARQTUQDHOF4144 [place], CR PO2 82 mm Hg Normal 80-100 mm Hg [facility] Comment on above: Performed By: #### C R BGA ####[facility] NKFYAWBTGM6250 [place], FIO2 (CATEGORY) 40% Normal [facility] Comment on above: Result Comment: 40L Performed By: #### C R BGA ####[facility] PATHOLOGY NKVTXSZGRL8610 [place], HCO3 (Bld) [Moles/Vol] 29 mmol/L High 22-28 [facility] Comment on above: Performed By: #### C R BGA ####[facility] PATHOLOGY ENOMFNTXRQ6010 [place], MODE Nasal Canula Normal [facility] Comment on above: Result Comment: HFNC Performed By: #### C R BGA ####[facility] PATHOLOGY CIBDPCCXPW[address] [place] [address], Oxygen saturation in Blood 96.9 % Normal >=95.1 [facility] Comment on above: Performed By: #### C R BGA ####[facility] PATHOLOGY YVODLYDIYH[address] [place] [address], CALCIUM, IONIZEDon CR ICA 1.05 mmol/L Low 1.10-1.40 [facility] Comment on above: Performed By: #### L ACT, CR ICA ####[facility] PATHOLOGY LMVBTTYTKY[address] [place] [address], COMPLETE BLOOD COUNTon 12-08 Erythrocyte distribution width (RBC) [Ratio] 14.8 % High 11.5-14.5 [facility] Comment on above: Performed By: #### C BC ####[facility] PATHOLOGY HFATCWXAXQ165[address] [place] [address], Hematocrit (Bld) [Volume fraction] 23.4 % Low 41.0-53.0 [facility] Comment on above: Performed By: #### C BC ####[facility] PATHOLOGY XTOFSSKRRJ027[address] [place] [address], Hemoglobin (Bld) [Mass/Vol] 7.7 g/dL Low 13.9-16.3 [facility] Comment on above: Performed By: #### C BC ####[facility] PATHOLOGY PINZFWTAUX7323 [place], MCH (RBC) [Entitic mass] 30.0 pg Normal 26.0-34.0 [facility] Comment on above: Performed By: #### C BC ####[facility] PATHOLOGY FWTANBBPWB7920 [place], MCHC (RBC) [Mass/Vol] 32.8 g/dL Normal 32.0-35.9 [facility] Comment on above: Performed By: #### C BC ####[facility] PATHOLOGY SNHUYMWSAY5119 [place], MCV (RBC) [Entitic vol] 92 fL Normal 80-100 [facility] Comment on above: Performed By: #### C BC ####[facility] PATHOLOGY [id number] [place], Platelet mean volume (Bld) [Entitic vol] 8.5 fL Normal 7.5-11.2 [facility] Comment on above: Performed By: #### C BC ####[facility] PATHOLOGY KNSUNESQIY2886 [place], Platelets (Bld) [#/Vol] 339 10*3/uL Normal 150-400 [facility] Comment on above: Performed By: #### C BC ####[facility] PATHOLOGY CAPNZHBHXO5345 [place], RBC (Bld) [#/Vol] 2.55 10*6/uL Low 4.50-5.90 [facility] Comment on above: Performed By: #### C BC ####[facility] PATHOLOGY CHMYXXPOVI0099 [place], WBC (Bld) [#/Vol] 17.9 10*3/uL High 4.5-11.5 [facility] Comment on above: Performed By: #### C BC ####[facility] PATHOLOGY [id number] [place], [place], CT CHEST/ABD/PELVIS W/ CONTR Pattie 12-08-2020 CT CHEST/ABD/PELVIS W/ CONTRAST Normal [facility] Care Plan Noteon 12-08-2020 Per Diem Physical Therapist Assistant Authentication Interface Message Text Normal [facility] Consent for Procedure/Surger yon 12-08-2020 Consent for Procedure/Surgery [id number]:127 Normal [facility] Consultson 12-08-2020 Per Diem Physical Therapist Assistant Authentication Interface Message Text Normal [facility] Per Diem Physical Therapist Assistant Authentication Interface Message Text Normal [facility] GLUCOSE, FINGERSTICK-IN OFFI CEon 12-08-2020 Glucose [Mass/Vol] 253 mg/dL High 80-116 [facility] Comment on above: Performed By: #### 8 2948 ####NURSING GLUCOSE BFHYBRU5116 [place], [address] Glucose [Mass/Vol] 193 mg/dL High 80-116 [facility] Comment on above: Result Comment: Foll ow Protocol Performed By: #### 8 2948 ####NURSING GLUCOSE SREFGSR2803 [place], [address] Glucose [Mass/Vol] 252 mg/dL High 80-116 [facility] Comment on above: Performed By: #### 8 2948 ####NURSING GLUCOSE UADTBFB5867 [place], [address] H AND Glenn 12-08-2020 Per Diem Physical Therapist Assistant Authentication Interface Message Text Normal [facility] LACTIC ACIDon 12-08-2020 CR LACT 1.4 mmol/L Normal 0.5-2.0 [facility] Comment on above: Performed By: #### L ACT, CR ICA ####[facility] FRBUHUTTKW1964 [place], MAGNESIUMon 12-08-2020 Magnesium [Mass/Vol] 2.0 mg/dL Normal 1.6-2.8 [facility] Comment on above: Performed By: #### M G, CH8, PHOS ####[facility] EYVTSQVLOI9730 [place], PARTIAL THROMBOPLASTIN TIMEo n 12-08-2020 aPTT Coag (Bld) [Time] 26 s Normal 25-37 [facility] Comment on above: Performed By: #### P T, APTT ####[facility] [id number] [place], PHOSPHORUSon 12-08-2020 Phosphate [Mass/Vol] 3.7 mg/dL Normal 2.5-4.8 [facility] Comment on above: Performed By: #### M G, CH8, PHOS ####S PATHOLOGY SYEMODDJXI2631 [place], PROTHROMBIN TIME AND INRon 0 12-08-2020 INR Coag (PPP) [Relative time] 1.30 {INR} High 0.90-1.10 [facility] Comment on above: Performed By: #### P T, APTT ####S PATHOLOGY ZVXLGYCNAH5857 [place], PT Coag (PPP) [Time] 14.7 s High 9.7-12.9 [facility] Comment on above: Performed By: #### P T, APTT ####[facility] PATHOLOGY DDDVXLLYVK8084 [place], Procedureson 12-08-2020 Per Diem Physical Therapist Assistant Authentication Interface Message Text Normal [facility] Progress Note-Nurseon 2020 Progress Note-Nurse [id number]:127 Normal [facility] Progress Note-Nurse Normal [facility] Progress Note-Physicianon Progress Note-Physician Normal [facility] Comment on above: Result Comment: Elec tronically Signed By: Sy Arceo Jr, DO\.br\Date and Time Signed: 12/08/20 19:46 EDT Progress Note-Physician Normal [facility] Comment on above: Result Comment: Elec tronically Signed By: Sy Arceo Jr, DO\.br\Date and Time Signed: 12/08/20 19:46 EDT Progress Note-Physician [facility] Comment on above: Result Comment: Elec tronically Signed By: Sy Arceo Jr, DO\.br\Date and Time Signed: 12/08/20 19:46 EDT Progress Note-Physician Normal [facility] Comment on above: Result Comment: Elec tronically Signed By: Sy Arceo Jr, DO\Date and Time Signed: 12/08/20 19:46 EDT Progress Noteson 12-08-2020 Per Diem Physical Therapist Assistant Authentication Interface Message Text Normal [facility] Per Diem Physical Therapist Assistant Authentication Interface Message Text Normal [facility] Per Diem Physical Therapist Assistant Authentication Interface Message Text Normal [facility] Per Diem Physical Therapist Assistant Authentication Interface Message Text 0200- Pt admitted to the TICU. 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 Normal [facility] Transfer Documentson 021 Transfer Documents [id number]:127 Normal [facility] US GUIDED PLEURA CATH INSERT on 12-08-2020 US GUIDED PLEURA CATH INSERT Normal [facility] XR CHEST AP OR PA 1 VIEWon 0 12-08-2020 XR CHEST AP OR PA 1 VIEW Normal [facility] XR CHEST AP OR PA 1 VIEW Normal [facility] XR CHEST AP OR PA 1 VIEW Normal [facility] XR Chest Single Viewon 12-08 XR Chest Single View Normal [facility] .Manual Abson 12-07-2020 Basophils/Leukocyt es Manual cnt (Bld) [Pure # fraction] 0.0 E9/L Normal 0.0-0.2 [facility] Comment on above: Performed By: #### 2 374303, 04631551, 0366380, 4298625, 75042633 ####[facility] [address] [place] [address] Eosinophils/Leukoc ytes Manual cnt (Bld) [Pure # fraction] 0.0 E9/L Normal 0.0-0.5 [facility] Comment on above: Performed By: #### 2 626884, 23254150, 1903438, 9865090, 80633124 ####[facility] [address] [place] [address] Lymphocytes/Leukoc ytes Manual cnt (Bld) [Pure # fraction] 0.7 E9/L Low 1.0-4.0 [facility] Comment on above: Performed By: #### 2 800472, 78298991, 1914978, 2522873, 29940158 ####[facility] [address] [place] [address] Monocytes/Leukocyt es Manual cnt (Bld) [Pure # fraction] 3.6 E9/L High 0.2-1.0 [facility] Comment on above: Performed By: #### 2 569804, 19063600, 2122387, 5538984, 72445723 ####[facility] [address] [place] [address] Neutrophils/Leukoc ytes Auto (Bld) [Pure # fraction] 18.2 E9/L High 2.0-7.5 [facility] Comment on above: Performed By: #### 2 517613, 17182361, 1294737, 6967779, 69029302 ####[facility] [address] [place] [address] BMPon 12-07-2020 Anion gap [Moles/Vol] 15 mmol/L Normal 6-16 [facility] Comment on above: Performed By: #### 2 820128, 93362128, 8026760, 9438139, 61663844 ####[facility] [address] [place] [address] Calcium [Mass/Vol] 7.7 mg/dL Low 8.9-11.1 [facility] Comment on above: Performed By: #### 2 043775, 74292579, 3052455, 9122423, 45395989 ####[facility] [address] [place] [address] Chloride [Moles/Vol] 96 mmol/L Low 101-111 [facility] Comment on above: Performed By: #### 2 842726, 07372617, 8954576, 4037877, 59947932 ####[facility] [address] [place] [address] CO2 [Moles/Vol] 28 mmol/L Normal 21-31 [facility] Comment on above: Performed By: #### 2 490319, 82821781, 4096011, 9901401, 29837398 ####[facility] [address] [place] [address] Creatinine [Mass/Vol] 1.0 mg/dL Normal 0.5-1.3 [facility] Comment on above: Performed By: #### 2 793322, 10597026, 9363194, 8614777, 20532459 ####[facility] [address] [place] [address] Glucose [Mass/Vol] 234 mg/dL High 55-199 [facility] Comment on above: Result Comment: If t his glucose result represents a fasting glucose, interpretation should refer to the following reference range: 55-99 mg/dL Performed By: #### 2 085711, 54735082, 3463113, 8418056, 75797732 ####[facility] [address] [place] [address] Potassium [Moles/Vol] 3.9 mmol/L Normal 3.5-5.3 [facility] Comment on above: Performed By: #### 2 454473, 36647253, 4226300, 8384293, 14761184 ####[facility] [address] [place] [address] Sodium [Moles/Vol] 135 mmol/L Normal 135-145 [facility] Comment on above: Performed By: #### 2 467784, 90301000, 4710375, 4281597, 72792718 ####[facility] [address] [place] [address] Urea nitrogen [Mass/Vol] 25 mg/dL High 5-21 [facility] Comment on above: Performed By: #### 2 802672, 69465480, 8287413, 0531481, 64567791 ####[facility] [address] [place] [address] Urea nitrogen/Creatinin e [Mass ratio] 25 No Units High 10-20 [facility] Comment on above: Performed By: #### 2 211476, 68395253, 7042299, 8193994, 53693803 ####[facility] [address] [place] [address] Blood Gas Art, with LyRussell pepe, [place] 12-07-2020 a/A Ratio Art 26.00 % Normal >=0.80 [facility] Comment on above: Performed By: #### 4 39246760 ####[facility] [address] [place] [address] AaDO2 Art 174.9 mmHg High 5.0-15.0 [facility] Comment on above: Performed By: #### 4 14574433 ####[facility] [address] [place] [address] Allens Test Positive Normal [facility] Comment on above: Performed By: #### 4 16833032 ####[facility] [address] [place] [address] Base Excess Arterial 5.4 mmol/L Normal >=2.8 [facility] Comment on above: Performed By: #### 4 56445964 ####[facility] [address] [place] [address] cCa2+ Art 4.32 mg/dL Low 4.40-5.30 [facility] Comment on above: Performed By: #### 4 89030903 ####[facility] X[address] [place] [address] cCl- Art 98.0 mmol/L Low 101.0-111. 0 [facility] Comment on above: Performed By: #### 4 78731791 ####[facility] [address] [place] [address] cGlu Art 287.0 mg/dL High 55.0-199.0 [facility] Comment on above: Performed By: #### 4 34871612 ####[facility] E[address]ff[address] [place] [address] cK+ Art 3.5 mmol/L Normal 3.5-5.3 [facility] Comment on above: Performed By: #### 4 82675255 ####[facility] [address] [place] [address] cLac Art 1.2 mmol/L Low 5.0-14.0 [facility] Comment on above: Performed By: #### 4 29768128 ####[facility] [address] [place] [address] backbreaker+ Art 133.0 mmol/L Low 135.0-145. 0 [facility] Comment on above: Performed By: #### 4 17098927 ####[facility] [address] [place] [address] Drawn by DCC Invalid Interpretation Code [facility] Comment on above: Performed By: #### 4 35437930 ####[address] [place] [address] FCOHb Art 1.4 % Low 1.5-4.9 [facility] Comment on above: Result Comment: Refe rence rangeNonsmoker <1.5%Smoker <5.0%Heavy Smoker <9.0% Performed By: #### 4 61750090 ####[facility] [address] [place] [address] FIO2 BG 40.0 Invalid Interpretation Code [facility] Comment on above: Performed By: #### 4 17173933 ####[facility] Pubtfit[address]uc283 [place] [address] FMetHb Art 0.7 % Normal 0.0-1.9 [facility] Comment on above: Performed By: #### 4 48044974 ####[facility] F[address] [place] [address] FO2Hb Art 91.1 % Low 93.0-100.0 [facility] Comment on above: Performed By: #### 4 48376951 ####[facility] [address] [place] [address] HCO3 (Bld) [Moles/Vol] 29.3 mmol/L High 22.0-26.0 [facility] Comment on above: Performed By: #### 4 81713477 ####[facility] [address] [place] [address] Hemoglobin (Bld) [Mass/Vol] 8.3 g/dL Low 12.0-17.0 [facility] Comment on above: Performed By: #### 4 40924003 ####[address] [address] Oxygen saturation in Blood 93.1 % Low 95.0-100.0 [facility] Comment on above: Performed By: #### 4 54010594 ####[address] [address] P CO2 Arterial 36.6 mmHg Normal 35.0-45.0 [facility] Comment on above: Performed By: #### 4 81600740 ####[address] [address] P O2 Arterial 61.3 mmHg Low 80.0-100.0 [facility] Comment on above: Performed By: #### 4 13583102 ####[address] [address] pH Arterial 7.505 High 7.350-7.45 0 [facility] Comment on above: Performed By: #### 4 62477675 ####[address] [address] Sample Site L Radial Normal [facility] Comment on above: Performed By: #### 4 44424169 ####[address] [address] Sample Type Arterial Draw Normal [facility] Comment on above: Performed By: #### 4 98945236 ####[address] [address] CBC w/ Auto Diffon 1 Erythrocyte distribution width (RBC) [Ratio] 15.0 % High 10.9-14.2 [facility] Comment on above: Performed By: #### 2 302049, 57857267, 4830110, 4682408, 56876372 ####[address] [place] [address] Hematocrit (Bld) [Volume fraction] 29.3 % Low 37.7-49.0 [facility] Comment on above: Performed By: #### 2 207296, 79532695, 5606060, 1878565, 82796529 ####[address] [address] Hemoglobin (Bld) [Mass/Vol] 9.5 g/dL Low 13.5-17.5 [facility] Comment on above: Performed By: #### 2 882012, 53387903, 4224359, 6049933, 78710037 ####[address] [address] MCH (RBC) [Entitic mass] 29.2 pg Normal 27.0-34.0 [facility] Comment on above: Performed By: #### 2 493673, 52512136, 3777574, 4799844, 30282417 ####[address] [address] MCHC (RBC) [Mass/Vol] 32.4 g/dL Normal 31.4-36.0 [facility] Comment on above: Performed By: #### 2 518922, 26770871, 2240934, 8987382, 00896893 ####[address] [address] MCV (RBC) [Entitic vol] 89.9 fL Normal 80.0-100.0 [facility] Comment on above: Performed By: #### 2 916735, 13382686, 1182272, 6297750, 29151571 ####[address] [address] Platelet mean volume (Bld) [Entitic vol] 9.1 fL Normal 6.4-10.8 [facility] Comment on above: Performed By: #### 2 834773, 24000545, 8197211, 9119273, 57125105 ####[facility] [address] [place] [address] Platelets (Bld) [#/Vol] 290.0 E9/L Normal 150.0-500. 0 [facility] Comment on above: Performed By: #### 2 122273, 45300942, 4581800, 8756881, 64620856 ####[address] [place] [address] RBC (Bld) [#/Vol] 3.3 E12/L Low 4.3-5.9 [facility] Comment on above: Performed By: #### 2 448523, 00153360, 2098801, 2395422, 42997193 ####[address] [address] WBC corrected for nucl RBC Auto (Bld) [#/Vol] 22.7 E9/L High 4.0-11.0 [facility] Comment on above: Performed By: #### 2 521597, 34123486, 8810843, 9689276, 14249458 ####[facility] [address] [place] [address] Capillary Glucose POCon 11-21 Glucose [Mass/Vol] 256 mg/dL High 55-99 [facility] Comment on above: Result Comment: Javier WEBB Performed By: #### 2 21803375 ####[address] [place] [address] Glucose [Mass/Vol] 230 mg/dL High 55-99 [facility] Comment on above: Result Comment: Javier WEBB Performed By: #### 2 95993622 ####[address] [place] [address] Glucose [Mass/Vol] 276 mg/dL High 55-99 [facility] Comment on above: Performed By: #### 2 20719300 ####[address] [place] [address] Glucose [Mass/Vol] 321 mg/dL High 55-99 [facility] Comment on above: Performed By: #### 2 16848236 ####[facility] [address] [place] [address] Glucose [Mass/Vol] 226 mg/dL High 55-99 [facility] Comment on above: Result Comment: Javier childress RN/ Performed By: #### 2 93932579 ####[facility] [address] [place] [address] Interdisciplinary Note - Sonido e Manageron 12-07-2020 Interdisciplinary Note - Marine Services Technician Normal [facility] Comment on above: Result Comment: Elec tronically Signed By: Vilma BURNHAM, Francine\.whitney\Date and Time Signed: 12/07/20 08:37 EDT Manual Diffon 12-07-2020 Band form neutrophils/100 WBC (Bld) 11 % High 0-10 [facility] Comment on above: Order Comment: Order Added by Discern Expert. Performed By: #### 2 274401, 12757919, 7317751, 3211072, 21015465 ####[facility] [address] [place] [address] Basophils/100 WBC (Bld) 0 % Normal 0-2 [facility] Comment on above: Order Comment: Order Added by Discern Expert. Performed By: #### 2 557555, 50176274, 9025280, 1084425, 42708324 ####[facility] [address] [place] [address] Eosinophils/100 WBC (Bld) 0 % Normal 0-8 [facility] Comment on above: Order Comment: Order Added by Discern Expert. Performed By: #### 2 176470, 50104287, 3597260, 1199015, 29494475 ####[facility] [address] [place] [address] Lymphocytes/100 WBC (Bld) 2 % Low 14-50 [facility] Comment on above: Order Comment: Order Added by Discern Expert. Performed By: #### 2 420956, 16617019, 2323451, 0871627, 69356472 ####[facility] [address] [place] [address] Monocytes/100 WBC (Bld) 16 % High 4-14 [facility] Comment on above: Order Comment: Order Added by Discern Expert. Performed By: #### 2 654040, 18252795, 2003618, 1820635, 25086033 ####[facility] [address] [place] [address] Morphology Jadon (Bld) [Interp] Normal Normal [facility] Comment on above: Order Comment: Order Added by Discern Expert. Performed By: #### 2 376270, 40263324, 9946125, 8316367, 97154532 ####[facility] [address] [place] [address] Myelocytes/100 WBC (Bld) 1 % High <=0 [facility] Comment on above: Order Comment: Order Added by Discern Expert. Performed By: #### 2 590321, 26189262, 3995789, 7356235, 51687846 ####[facility] [address] [place] [address] Segmented neutrophils/100 WBC (Bld) 69 % Normal 36-75 [facility] Comment on above: Order Comment: Order Added by Discern Expert. Performed By: #### 2 761291, 75219973, 8688399, 1482038, 99130444 ####[facility] [address] [place] [address] Variant lymphocytes LM Ql (Bld) 1 % Invalid Interpretation Code [facility] Comment on above: Order Comment: Order Added by Discern Expert. Performed By: #### 2 108275, 67864160, 8250748, 4016303, 99871766 ####[facility] [address] [place] [address] Monitor Recordon 12-07-2020 Monitor Record [id number]#[id number]:127 Normal [facility] Monitor Record [id number]#[id number]:127 Normal [facility] Proceduralon 12-07-2020 Procedural Normal [facility] Progress Note-Physicianon Progress Note-Physician Normal [facility] Comment on above: Result Comment: Elec tronically Signed By: Farideh Underwood PA-C\.br\Date and Time Signed: 12/04/20 10:46 EDT\.br\Electronically Co-Signed By: Nadeem Pink DO\.br\Date and Time Co-Signed: 12/07/20 13:39 EDT Progress Note-Physician Normal [facility] Comment on above: Result Comment: Elec tronically Signed By: Farideh Underwood PA-C\.br\Date and Time Signed: 12/07/20 13:28 EDT\.br\Electronically Co-Signed By: Nadeem Pink DO\.br\Date and Time Co-Signed: 12/07/20 13:37 EDT Progress Note-Physician Normal [facility] Comment on above: Result Comment: Elec tronically Signed By: Farideh Underwood PA-C\.br\Date and Time Signed: 12/06/20 12:08 EDT\.br\Electronically Co-Signed By: Nadeem Pink DO\.br\Date and Time Co-Signed: 12/07/20 13:34 EDT XR Chest 2 Viewson XR Chest 2 Views Normal [facility] XR Chest Single Viewon 12-07 XR Chest Single View Normal [facility] eGFRon 12-07-2020 GFR/1.73 sq M.predicted among blacks MDRD (S/P/Bld) [Vol rate/Area] mL/min/{1.73_m2} Normal >=59 [facility] Comment on above: Order Comment: Order added by Discern Expert. Result Comment: eGFR is race adjusted. AA=. Performed By: #### 2 732783, 77231307, 8210424, 0853257, 17257179 ####[facility] [address] [place] [address] GFR/1.73 sq M.predicted among non-blacks MDRD (S/P/Bld) [Vol rate/Area] mL/min/{1.73_m2} Normal >=59 [facility] Comment on above: Order Comment: Order added by Discern Expert. Result Comment: 3 Year Olds Preschool Teacher nik kidney disease could be indicated at eGFR's of less than 60 mL/min/1.73m2. Kidney failure is indicated at less than 15 mL/min/1.73m2. Performed By: #### 2 501393, 77354270, 3230308, 5579437, 65056117 ####[facility] [address] [place] [address] Auto Diffon 12-06-2020 Basophils/100 WBC (Bld) 0.2 % Normal 0.0-2.0 [facility] Comment on above: Order Comment: Order Added by Discern Expert. Performed By: #### 2 934818, 18983265, 3022590, 3715245 ####[facility] [address] [place] [address] Basophils/Leukocyt es Auto (Bld) [Pure # fraction] 0.0 E9/L Normal 0.0-0.2 [facility] Comment on above: Order Comment: Order Added by Discern Expert. Performed By: #### 2 199012, 98997007, 8681418, 5299269 ####[facility] [address] [place] [address] Eosinophils/100 WBC (Bld) 0.1 % Normal 0.0-8.0 [facility] Comment on above: Order Comment: Order Added by Discern Expert. Performed By: #### 2 852510, 73462605, 9388429, 1207119 ####[address] [place] [address] Eosinophils/Leukoc ytes Auto (Bld) [Pure # fraction] 0.0 E9/L Normal 0.0-0.5 [facility] Comment on above: Order Comment: Order Added by Discern Expert. Performed By: #### 2 802007, 60498394, 2161623, 8218772 ####[facility] [address] [place] [address] Lymphocytes/100 WBC (Bld) 4.6 % Low 14.0-50.0 [facility] Comment on above: Order Comment: Order Added by Discern Expert. Performed By: #### 2 287225, 44924869, 1639828, 7160258 ####[address] [place] [address] Lymphocytes/Leukoc ytes Auto (Bld) [Pure # fraction] 0.8 E9/L Low 1.0-4.0 [facility] Comment on above: Order Comment: Order Added by Discern Expert. Performed By: #### 2 241939, 90862600, 2224194, 7979150 ####[address] [place] [address] Monocytes/100 WBC (Bld) 19.6 % High 4.0-14.0 [facility] Comment on above: Order Comment: Order Added by Discern Expert. Performed By: #### 2 553410, 77781377, 4298664, 7533076 ####[address] [address] Monocytes/Leukocyt es Auto (Bld) [Pure # fraction] 3.3 E9/L High 0.2-1.0 [facility] Comment on above: Order Comment: Order Added by Discern Expert. Performed By: #### 2 343843, 38298777, 3905627, 4173261 ####[facility] [address] [place] [address] Neutrophils/100 WBC (Bld) 75.5 % High 36.0-75.0 [facility] Comment on above: Order Comment: Order Added by Discern Expert. Performed By: #### 2 546784, 21390166, 3869012, 4486754 ####[facility] [address] [place] [address] Neutrophils/Leukoc ytes Auto (Bld) [Pure # fraction] 12.6 E9/L High 2.0-7.5 [facility] Comment on above: Order Comment: Order Added by Discern Expert. Performed By: #### 2 884600, 13362260, 6457520, 6338221 ####[facility] [address] [place] [address] BMPon 12-06-2020 Anion gap [Moles/Vol] 14 mmol/L Normal 6-16 [facility] Comment on above: Performed By: #### 2 057817, 06047171, 9781352, 7473524 ####[facility] [address] [place] [address] Calcium [Mass/Vol] 7.4 mg/dL Low 8.9-11.1 [facility] Comment on above: Performed By: #### 2 522185, 99362788, 0507554, 1578782 ####[facility] [address] [place] [address] Chloride [Moles/Vol] 96 mmol/L Low 101-111 [facility] Comment on above: Performed By: #### 2 806136, 71796182, 7692777, 6283139 ####[facility] [address] [place] [address] CO2 [Moles/Vol] 28 mmol/L Normal 21-31 [facility] Comment on above: Performed By: #### 2 521845, 44014085, 8182395, 5582622 ####[facility] [address] [place] [address] Creatinine [Mass/Vol] 1.1 mg/dL Normal 0.5-1.3 [facility] Comment on above: Performed By: #### 2 261173, 93775354, 0067720, 5516534 ####[facility] [address] [address] Glucose [Mass/Vol] 225 mg/dL High 55-199 [facility] Comment on above: Result Comment: If t his glucose result represents a fasting glucose, interpretation should refer to the following reference range: 55-99 mg/dL Performed By: #### 2 198967, 77882770, 2209229, 6166893 ####[facility] [address] [place] [address] Potassium [Moles/Vol] 4.0 mmol/L Normal 3.5-5.3 [facility] Comment on above: Performed By: #### 2 290753, 31002467, 7060415, 0692758 ####[facility] [address] [place] [address] Sodium [Moles/Vol] 134 mmol/L Low 135-145 [facility] Comment on above: Performed By: #### 2 255422, 88391262, 7478341, 9008625 ####[facility] [address] [place] [address] Urea nitrogen [Mass/Vol] 28 mg/dL High 5-21 [facility] Comment on above: Performed By: #### 2 434794, 77009471, 9468087, 6423046 ####[facility] [address] [place] [address] Urea nitrogen/Creatinin e [Mass ratio] 26 No Units High 10-20 [facility] Comment on above: Performed By: #### 2 218101, 94425538, 3888394, 8528712 ####[facility] [address] [place] [address] CBC w/ Auto Diffon Erythrocyte distribution width (RBC) [Ratio] 15.1 % High 10.9-14.2 [facility] Comment on above: Performed By: #### 2 520690, 86264093, 0518667, 0203517 ####[facility] [address] [place] [address] Hematocrit (Bld) [Volume fraction] 25.9 % Low 37.7-49.0 [facility] Comment on above: Performed By: #### 2 163313, 75557542, 1769832, 4652047 ####[facility] [address] [place] [address] Hemoglobin (Bld) [Mass/Vol] 8.6 g/dL Low 13.5-17.5 [facility] Comment on above: Performed By: #### 2 084200, 08531986, 9112622, 6341293 ####[place] MCH (RBC) [Entitic mass] 29.8 pg Normal 27.0-34.0 [facility] Comment on above: Performed By: #### 2 875775, 66350258, 1551363, 9814339 ####[place] [address] MCHC (RBC) [Mass/Vol] 33.0 g/dL Normal 31.4-36.0 [facility] Comment on above: Performed By: #### 2 250699, 06021094, 4348501, 0720481 ####[place] [address] MCV (RBC) [Entitic vol] 90.3 fL Normal 80.0-100.0 [facility] Comment on above: Performed By: #### 2 754015, 30223499, 9924832, 5497675 ####[place] [address] Platelet mean volume (Bld) [Entitic vol] 7.4 fL Normal 6.4-10.8 [facility] Comment on above: Performed By: #### 2 825329, 12453242, 0877011, 9276031 ####[address] [address] Platelets (Bld) [#/Vol] 328.0 E9/L Normal 150.0-500. 0 [facility] Comment on above: Performed By: #### 2 398819, 61173974, 7300047, 3690596 ####[address] [address] RBC (Bld) [#/Vol] 2.9 E12/L Low 4.3-5.9 [facility] Comment on above: Performed By: #### 2 337402, 88043963, 2975172, 5382702 ####[facility] [address] [place] [address] WBC corrected for nucl RBC Auto (Bld) [#/Vol] 16.7 E9/L High 4.0-11.0 [facility] Comment on above: Result Comment: Slid e reviewed by LW. Performed By: #### 2 526525, 59823793, 4249680, 3082137 ####[facility] [address] [place] [address] Capillary Glucose POCon 11-21 Glucose [Mass/Vol] 250 mg/dL High [address] [place] [address] Comment on above: Result Comment: Javier WEBB Performed By: #### 2 27413399 ####[address] [address] Glucose [Mass/Vol] 219 mg/dL High [address] [place] [address] Comment on above: Result Comment: Javier WEBB Performed By: #### 2 41563066 ####[facility] [address] [place] [address] Glucose [Mass/Vol] 199 mg/dL High [address] Comment on above: Result Comment: Javier WEBB Performed By: #### 2 76639772 ####[facility] [address] [place] [address] Glucose [Mass/Vol] 238 mg/dL High -[address] [place] [address] Comment on above: Result Comment: Javier WEBB Performed By: #### 2 74837028 ####[facility] [address] [place] [address] Insurance Correspondence Off iceon 12-06-2020 Insurance Correspondence Office [id number]:127 Normal [facility] Progress Note - Pharmacyon 0 12-06-2020 Progress Note - Pharmacy Normal [facility] Rapid COVID Antigen ([facility])on 12-06-2020 Rapid COV Int NEG Ctl Pass Normal [facility] Comment on above: Performed By: #### 2 [id number] ####[facility] [address] [place] [address] Rapid COV Int POS Ctl Pass Normal [facility] Comment on above: Performed By: #### 2 386490143 ####[facility] [address] [place] [address] SARS-CoV-2 (COVID-19) RNA PRAVEEN+probe Ql (Unsp spec) Not detected Normal Not Detected [facility] Comment on above: Result Comment: The [employer] System for Rapid Detection of SARS-CoV-2 is a chromatographic digital immunoassay intended for the direct and qualitative detection of SARS-CoV-2 nucleocapsid antigens in nasal swabs from individuals who are suspected of COVID-19 by their healthcare provider within the first five days of the onset of symptoms. Negative results should be treated as presumptive, do not rule out SARS-CoV-2 infection and should not be used as the sole basis for treatment or patient management decisions, including infection control decisions. Negative results should be considered in the context of a patient?s recent exposures, history and the presence of clinical signs and symptoms consistent with COVID-19, and confirmed with a molecular assay, if necessary, for patient management. For in vitro diagnostic use. In the [place], only for use under an Emergency Use Authorization. In the [place], this test has not been FDA cleared or approved; this test has been authorized by FDA under an EUA for use by authorized laboratories; use by laboratories certified under the CLIA, 42 U.S.C. ?263a, that meet requirements to perform moderate, high, or waived complexity tests and at the Point of Care (POC), i.e., in patient care settings operating under a CLIA Certificate of Waiver, Certificate of Compliance, or Certificate of Accreditation.This test has been authorized only for the detection of proteins from SARS-CoV-2, not for any other viruses or pathogens; and, in the [place], this test is only authorized for the duration of the declaration that circumstances exist justifying the authorization of emergency use of in vitro diagnostics for detection and/or diagnosis of the virus that causes COVID-19 under Section 564(b)(1) of the Act, 21 U.S.C. ? 360bbb-3(b)(1), unless the authorization is terminated or revoked sooner. Performed By: #### 2 [id number] ####[facility] [address] [place] [address] Employed in Healthcare YES [facility] Comment on above: Performed By: #### 2 [id number] ####[address] [address] First Test Unknown Normal [facility] Comment on above: Performed By: #### 2 [id number] ####[address] [address] Hospitalized? YES Normal [facility] Comment on above: Performed By: #### 2 [id number] ####[address] [address] ICU NO [facility] Comment on above: Performed By: #### 2 [id number] ####[address] [place] [address] ? NO [facility] Comment on above: Performed By: #### 2 [id number] ####[address] [place] [address] Resides in a Congregate Care Setting NO [facility] Comment on above: Performed By: #### 2 [id number] ####[address] [address] Symptomatic as defined by [facility] [place] [facility] Comment on above: Performed By: #### 2 [id number] ####[address] [place] [address] XR Chest 2 Viewson XR Chest 2 Views Normal [facility] eGFRon 12-06-2020 GFR/1.73 sq M.predicted among blacks MDRD (S/P/Bld) [Vol rate/Area] mL/min/{1.73_m2} Normal >=59 [facility] Comment on above: Order Comment: Order added by Discern Expert. Result Comment: eGFR is race adjusted. AA=. Performed By: #### 2 819624, 54889527, 9769346, 1404626 ####[facility] [address] [place] [address] GFR/1.73 sq M.predicted among non-blacks MDRD (S/P/Bld) [Vol rate/Area] mL/min/{1.73_m2} Normal >=59 [facility] Comment on above: Order Comment: Order added by Discern Expert. Result Comment: 3 Year Olds Preschool Teacher nik kidney disease could be indicated at eGFR's of less than 60 mL/min/1.73m2. Kidney failure is indicated at less than 15 mL/min/1.73m2. Performed By: #### 2 369722, 25993623, 0244987, 9625104 ####[address] [place] [address] .Manual Abson 12-05-2020 Basophils/Leukocyt es Manual cnt (Bld) [Pure # fraction] 0.0 E9/L Normal 0.0-0.2 [facility] Comment on above: Performed By: #### 2 158587, 33944864, 0856494, 2075331, 03431084, 8594891 ####[facility] [address] [place] [address] Eosinophils/Leukoc ytes Manual cnt (Bld) [Pure # fraction] 0.1 E9/L Normal 0.0-0.5 [facility] Comment on above: Performed By: #### 2 889210, 19320246, 7727164, 5894253, 07619664, 0296169 ####[facility] [address] [place] [address] Lymphocytes/Leukoc ytes Manual cnt (Bld) [Pure # fraction] 1.4 E9/L Normal 1.0-4.0 [facility] Comment on above: Performed By: #### 2 199084, 80355385, 9098270, 0809283, 82819206, 9235401 ####[facility] [address] [place] [address] Monocytes/Leukocyt es Manual cnt (Bld) [Pure # fraction] 1.6 E9/L High 0.2-1.0 [facility] Comment on above: Performed By: #### 2 564251, 42723547, 5186333, 9609933, 70940651, 6608857 ####[facility] [address] [place] [address] Neutrophils/Leukoc ytes Auto (Bld) [Pure # fraction] 9.1 E9/L High 2.0-7.5 [facility] Comment on above: Performed By: #### 2 235732, 56111237, 1377964, 8226545, 85635107, 2706828 ####[address] [place] [address] BMPon 12-05-2020 Anion gap [Moles/Vol] 10 mmol/L Normal 6-16 [facility] Comment on above: Performed By: #### 2 128104, 49205563, 4301709, 4793466, 80129178, 1402174 ####[facility] [address] [place] [address] Calcium [Mass/Vol] 7.4 mg/dL Low 8.9-11.1 [facility] Comment on above: Performed By: #### 2 218629, 45742035, 4657903, 8050989, 43104640, 3829900 ####[facility] [address] [place] [address] Chloride [Moles/Vol] 100 mmol/L Low 101-111 [facility] Comment on above: Performed By: #### 2 423280, 45256646, 6922602, 8128625, 32211596, 5954599 ####[facility] [address] [place] [address] CO2 [Moles/Vol] 31 mmol/L Normal 21-31 [facility] Comment on above: Performed By: #### 2 951547, 98301207, 5756709, 6431474, 65561767, 5822599 ####[facility] [address] [place] [address] Creatinine [Mass/Vol] 0.9 mg/dL Normal 0.5-1.3 [facility] Comment on above: Performed By: #### 2 427350, 39520231, 1937889, 1907543, 43813426, 3505087 ####[facility] [address] [place] [address] Glucose [Mass/Vol] 187 mg/dL Normal 55-199 [facility] Comment on above: Result Comment: If t his glucose result represents a fasting glucose, interpretation should refer to the following reference range: 55-99 mg/dL Performed By: #### 2 986815, 79260991, 8826807, 5412538, 81043458, 8356405 ####[facility] [address] [place] [address] Potassium [Moles/Vol] 3.6 mmol/L Normal 3.5-5.3 [facility] Comment on above: Performed By: #### 2 878882, 06289766, 6854866, 9297852, 09936179, 5073003 ####[facility] [address] [place] [address] Sodium [Moles/Vol] 137 mmol/L Normal 135-145 [facility] Comment on above: Performed By: #### 2 818593, 54860740, 2775903, 6870328, 46277271, 9793335 ####[facility] [address] [place] [address] Urea nitrogen [Mass/Vol] 23 mg/dL High 5-21 [facility] Comment on above: Performed By: #### 2 668864, 29615675, 2281573, 1803335, 59811284, 8918452 ####[facility] [address] [place] [address] Urea nitrogen/Creatinin e [Mass ratio] 26 No Units High 10-20 [facility] Comment on above: Performed By: #### 2 095252, 73523013, 1269327, 5280403, 62674607, 8216955 ####[facility] [address] [place] [address] CBC w/ Auto Diffon 1 Erythrocyte distribution width (RBC) [Ratio] 14.9 % High 10.9-14.2 [facility] Comment on above: Performed By: #### 2 261781, 87643899, 1043814, 3330653, 29871464, 2011622 ####[address] [place] [address] Hematocrit (Bld) [Volume fraction] 24.2 % Low 37.7-49.0 [facility] Comment on above: Performed By: #### 2 040526, 56047997, 6682137, 7458763, 20259639, 1911059 ####[address] [place] [address] Hemoglobin (Bld) [Mass/Vol] 8.0 g/dL Low 13.5-17.5 [facility] Comment on above: Performed By: #### 2 073551, 21049327, 8486218, 6773605, 97065090, 3976806 ####[address] [place] [address] MCH (RBC) [Entitic mass] 29.8 pg Normal 27.0-34.0 [facility] Comment on above: Performed By: #### 2 707013, 30321921, 3910734, 3163132, 07710751, 2036225 ####[address] [place] [address] MCHC (RBC) [Mass/Vol] 33.2 g/dL Normal 31.4-36.0 [facility] Comment on above: Performed By: #### 2 089545, 77489788, 9909657, 3061714, 51345148, 2108295 ####[address] [place] [address] MCV (RBC) [Entitic vol] 89.9 fL Normal 80.0-100.0 [facility] Comment on above: Performed By: #### 2 976782, 27873604, 8431758, 5951783, 46773425, 8857513 ####[address] [address] Platelet mean volume (Bld) [Entitic vol] 7.5 fL Normal 6.4-10.8 [facility] Comment on above: Performed By: #### 2 756074, 26964405, 8575166, 4008995, 41441614, 5545302 ####[address] [address] Platelets (Bld) [#/Vol] 295.0 E9/L Normal 150.0-500. 0 [facility] Comment on above: Performed By: #### 2 986209, 40579781, 1533228, 5800733, 25529567, 4307786 ####[address] [address] RBC (Bld) [#/Vol] 2.7 E12/L Low 4.3-5.9 [facility] Comment on above: Performed By: #### 2 275460, 71839242, 0461051, 3531725, 22433190, 5371727 ####[address] [address] WBC corrected for nucl RBC Auto (Bld) [#/Vol] 12.5 E9/L High 4.0-11.0 [facility] Comment on above: Performed By: #### 2 164739, 97803486, 6141828, 6918537, 23983411, 0392267 ####[address] [place] [address] Capillary Glucose POCon 11-21 Glucose [Mass/Vol] 242 mg/dL High 55-99 [facility] Comment on above: Result Comment: Javier WEBB Performed By: #### 2 69062075 ####[facility] [address] [place] [address] Glucose [Mass/Vol] 189 mg/dL High 55-99 [facility] Comment on above: Result Comment: Javier WEBB Performed By: #### 2 30539197 ####[facility] [address] [place] [address] Glucose [Mass/Vol] 241 mg/dL High 55-99 [facility] Comment on above: Result Comment: Javier WEBB Performed By: #### 2 08823799 ####[facility] [address] [place] [address] Glucose [Mass/Vol] 177 mg/dL High 55-99 [facility] Comment on above: Result Comment: Javier WEBB Performed By: #### 2 53034983 ####[facility] [address] [place] [address] Interdisciplinary Note - Sonido e Manageron 12-05-2020 Interdisciplinary Note - Marine Services Technician Normal [facility] Comment on above: Result Comment: Elec tronically Signed By: Vilma BURNHAM, Francine\.whitney\Date and Time Signed: 12/05/20 08:21 EDT Manual Diffon 12-05-2020 Band form neutrophils/100 WBC (Bld) 7 % Normal 0-10 [facility] Comment on above: Order Comment: Order Added by Discern Expert. Performed By: #### 2 767751, 49944472, 8581607, 4839428, 95213340, 7201910 ####[facility] [address] [place] [address] Basophils/100 WBC (Bld) 0 % Normal 0-2 [facility] Comment on above: Order Comment: Order Added by Discern Expert. Performed By: #### 2 478356, 43322698, 7320545, 0647383, 53515365, 0823247 ####[facility] [address] [place] [place] [address] Dohle body LM Ql (Bld) Present Normal [facility] Comment on above: Order Comment: Order Added by Discern Expert. Performed By: #### 2 901824, 50562431, 9632749, 1411285, 04604567, 6565094 ####[facility] [address] [place] [address] Eosinophils/100 WBC (Bld) 1 % Normal 0-8 [facility] Comment on above: Order Comment: Order Added by Discern Expert. Performed By: #### 2 741163, 13331965, 6383702, 8915544, 09713712, 9205608 ####[facility] [address] [place] [address] Lymphocytes/100 WBC (Bld) 11 % Low 14-50 [facility] Comment on above: Order Comment: Order Added by Nic Expert. Performed By: #### 2 089261, 72760424, 8502634, 6553514, 00194413, 8030543 ####[facility] [address] [place] [address] Monocytes/100 WBC (Bld) 13 % Normal 4-14 [facility] Comment on above: Order Comment: Order Added by Nic Expert. Performed By: #### 2 112340, 19884377, 0712744, 8767171, 48439132, 7687972 ####[facility] [address] [place] [address] Morphology Jadon (Bld) [Interp] Normal Normal [facility] Comment on above: Order Comment: Order Added by Discern Expert. Performed By: #### 2 626010, 42000684, 9061231, 5407738, 90589283, 8427392 ####[facility] [address] [place] [address] Myelocytes/100 WBC (Bld) 2 % High <=0 [facility] Comment on above: Order Comment: Order Added by Nic Expert. Performed By: #### 2 034284, 17246850, 2026350, 4629843, 36028846, 6377491 ####[facility] [address] [place] [address] Segmented neutrophils/100 WBC (Bld) 66 % Normal 36-75 [facility] Comment on above: Order Comment: Order Added by Discern Expert. Performed By: #### 2 951820, 77243045, 8175727, 5224189, 34385630, 7606738 ####[facility] [address] [place] [address] Toxic Gran Present Normal [facility] Comment on above: Order Comment: Order Added by Discern Expert. Performed By: #### 2 484531, 80298066, 3446071, 1293875, 59154562, 8111752 ####[facility] [address] [place] [address] Variant lymphocytes LM Ql (Bld) 0 % Invalid Interpretation Code [facility] Comment on above: Order Comment: Order Added by Discern Expert. Performed By: #### 2 371179, 56166285, 2145837, 1785279, 52487003, 3661441 ####[facility] [address] [place] [address] Monitor Recordon 12-05-2020 Monitor Record [id number]:127 Normal [facility] Monitor Record [id number]#1.00CD:127 Normal [facility] Progress Note-Physicianon Progress Note-Physician Normal [facility] Comment on above: Result Comment: Elec tronically Signed By: Farideh Underwood PA-C\.br\Date and Time Signed: 12/05/20 13:53 EDT\.br\Electronically Co-Signed By: Nadeem Pink DO\.br\Date and Time Co-Signed: 12/05/20 14:18 EDT Triglycerideson 12-05-2020 Triglyceride [Mass/Vol] 144 mg/dL Normal <=149 [facility] Comment on above: Order Comment: Recom mended if patient on propofol > 72 hours. Performed By: #### 2 440104, 04694782, 0427661, 8089931, 10167934, 4556326 ####[facility] [address] [place] [address] eGFRon 12-05-2020 GFR/1.73 sq M.predicted among blacks MDRD (S/P/Bld) [Vol rate/Area] mL/min/{1.73_m2} Normal >=59 [facility] Comment on above: Order Comment: Order added by Discern Expert. Result Comment: eGFR is race adjusted. AA=. Performed By: #### 2 791521, 52277680, 0353417, 5422981, 52528710, 0775900 ####[address] [place] [address] GFR/1.73 sq M.predicted among non-blacks MDRD (S/P/Bld) [Vol rate/Area] mL/min/{1.73_m2} Normal >=59 [facility] Comment on above: Order Comment: Order added by Discern Expert. Result Comment: 3 Year Olds Preschool Teacher nik kidney disease could be indicated at eGFR's of less than 60 mL/min/1.73m2. Kidney failure is indicated at less than 15 mL/min/1.73m2. Performed By: #### 2 333968, 05673839, 6328449, 0858664, 83307163, 1127389 ####[facility] [address] [place] [address] Auto Diffon 12-04-2020 Basophils/100 WBC (Bld) 0.2 % Normal 0.0-2.0 [facility] Comment on above: Order Comment: Order Added by Discern Expert. Performed By: #### 2 225166, 75187790, 6518448, 6776458 ####[facility] [address] [place] [address] Basophils/Leukocyt es Auto (Bld) [Pure # fraction] 0.0 E9/L Normal 0.0-0.2 [facility] Comment on above: Order Comment: Order Added by Discern Expert. Performed By: #### 2 614885, 24711661, 2566853, 6282250 ####[facility] [address] [place] [address] Eosinophils/100 WBC (Bld) 0.4 % Normal 0.0-8.0 [facility] Comment on above: Order Comment: Order Added by Discern Expert. Performed By: #### 2 064434, 35619029, 9471330, 6685219 ####[address] [place] [address] Eosinophils/Leukoc ytes Auto (Bld) [Pure # fraction] 0.1 E9/L Normal 0.0-0.5 [facility] Comment on above: Order Comment: Order Added by Discern Expert. Performed By: #### 2 688502, 17419382, 4245805, 6220907 ####[address] [address] Lymphocytes/100 WBC (Bld) 6.0 % Low 14.0-50.0 [facility] Comment on above: Order Comment: Order Added by Discern Expert. Performed By: #### 2 463805, 57527121, 4794510, 3921451 ####[address] [address] Lymphocytes/Leukoc ytes Auto (Bld) [Pure # fraction] 0.9 E9/L Low 1.0-4.0 [facility] Comment on above: Order Comment: Order Added by Discern Expert. Performed By: #### 2 552039, 43865740, 3212180, 7923777 ####[facility] [address] [place] [address] Monocytes/100 WBC (Bld) 12.2 % Normal 4.0-14.0 [facility] Comment on above: Order Comment: Order Added by Discern Expert. Performed By: #### 2 136936, 99249818, 9683450, 8271260 ####[address] [place] [address] Monocytes/Leukocyt es Auto (Bld) [Pure # fraction] 1.8 E9/L High 0.2-1.0 [facility] Comment on above: Order Comment: Order Added by Discern Expert. Performed By: #### 2 815311, 12185963, 1713102, 8799290 ####[facility] [address] [place] [address] Neutrophils/100 WBC (Bld) 81.2 % High 36.0-75.0 [facility] Comment on above: Order Comment: Order Added by Discern Expert. Performed By: #### 2 024809, 23582381, 8386117, 8583125 ####[facility] [address] [place] [address] Neutrophils/Leukoc ytes Auto (Bld) [Pure # fraction] 12.2 E9/L High 2.0-7.5 [facility] Comment on above: Order Comment: Order Added by Discern Expert. Performed By: #### 2 947109, 29279716, 0253021, 8777640 ####[facility] [address] [place] [address] BMPon 12-04-2020 Anion gap [Moles/Vol] 11 mmol/L Normal 6-16 [facility] Comment on above: Performed By: #### 2 359912, 52486634, 3733223, 2647615 ####[facility] [address] [place] [address] Calcium [Mass/Vol] 7.7 mg/dL Low 8.9-11.1 [facility] Comment on above: Performed By: #### 2 786200, 38364671, 1832561, 6751456 ####[facility] [address] [place] [address] Chloride [Moles/Vol] 102 mmol/L Normal 101-111 [facility] Comment on above: Performed By: #### 2 430923, 08524152, 3998968, 1554287 ####[facility] [address] [place] [address] CO2 [Moles/Vol] 30 mmol/L Normal 21-31 [facility] Comment on above: Performed By: #### 2 501395, 00578763, 7631848, 7295000 ####[facility] [address] [place] [address] Creatinine [Mass/Vol] 0.9 mg/dL Normal 0.5-1.3 [facility] Comment on above: Performed By: #### 2 654132, 11290241, 0450577, 8617700 ####[facility] [address] [place] [address] Glucose [Mass/Vol] 163 mg/dL Normal 55-199 [facility] Comment on above: Result Comment: If t his glucose result represents a fasting glucose, interpretation should refer to the following reference range: 55-99 mg/dL Performed By: #### 2 327904, 61978265, 7219112, 5693508 ####[facility] [address] [place] [address] Potassium [Moles/Vol] 3.6 mmol/L Normal 3.5-5.3 [facility] Comment on above: Performed By: #### 2 298600, 12086101, 8372002, 3469094 ####[facility] [address] [place] [address] Sodium [Moles/Vol] 139 mmol/L Normal 135-145 [facility] Comment on above: Performed By: #### 2 381537, 80756210, 0404962, 5406546 ####[facility] [address] [place] [address] Urea nitrogen [Mass/Vol] 21 mg/dL Normal 5-21 [facility] Comment on above: Performed By: #### 2 062111, 36630050, 4244299, 1172137 ####[facility] [address] [place] [address] Urea nitrogen/Creatinin e [Mass ratio] 23 No Units High 10-20 [facility] Comment on above: Performed By: #### 2 296107, 37289104, 7390135, 2405438 ####[facility] [address] [place] [address] CBC w/ Auto Diffon Erythrocyte distribution width (RBC) [Ratio] 15.0 % High 10.9-14.2 [facility] Comment on above: Performed By: #### 2 323551, 25677392, 1419043, 2548524 ####[address] [place] [address] Hematocrit (Bld) [Volume fraction] 25.4 % Low 37.7-49.0 [facility] Comment on above: Performed By: #### 2 159864, 23602321, 5143670, 8993665 ####[address] Hemoglobin (Bld) [Mass/Vol] 9.1 g/dL Low 13.5-17.5 [facility] Comment on above: Performed By: #### 2 345287, 19870282, 6353139, 2464471 ####[address] [address] MCH (RBC) [Entitic mass] 32.1 pg Normal 27.0-34.0 [facility] Comment on above: Performed By: #### 2 051086, 05967810, 7184943, 6241669 ####[address] [address] MCHC (RBC) [Mass/Vol] 35.7 g/dL Normal 31.4-36.0 [facility] Comment on above: Performed By: #### 2 554625, 48341464, 3304582, 2469537 ####[address] [address] MCV (RBC) [Entitic vol] 90.0 fL Normal 80.0-100.0 [facility] Comment on above: Performed By: #### 2 546662, 54543231, 8930266, 1600513 ####[address] [address] Platelet mean volume (Bld) [Entitic vol] 7.6 fL Normal 6.4-10.8 [facility] Comment on above: Performed By: #### 2 550329, 04625106, 9060733, 8281361 ####[facility] [address] [place] [address] Platelets (Bld) [#/Vol] 295.0 E9/L Normal 150.0-500. 0 [facility] Comment on above: Performed By: #### 2 970314, 89207458, 0444931, 9888696 ####[facility] [address] [place] [address] RBC (Bld) [#/Vol] 2.8 E12/L Low 4.3-5.9 [facility] Comment on above: Performed By: #### 2 490452, 97457736, 3054012, 0945441 ####[address] [place] [address] WBC corrected for nucl RBC Auto (Bld) [#/Vol] 15.1 E9/L High 4.0-11.0 [facility] Comment on above: Result Comment: Slid e reviewed by ANA. Performed By: #### 2 212116, 63975202, 5472337, 0704263 ####[facility] [address] [place] [address] CT Abdomen/Pelvis w/ Contras ton 12-04-2020 CT Abdomen/Pelvis w/ Contrast Normal [facility] CT Chest w/ Contraston 12-04 CT Chest w/ Contrast Normal [facility] Capillary Glucose POCon 11-21 Glucose [Mass/Vol] 254 mg/dL High 55-99 [facility] Comment on above: Result Comment: Javier childress RN/ Performed By: #### 2 11086317 ####[facility] [address] [place] [address] Glucose [Mass/Vol] 147 mg/dL High 55-99 [facility] Comment on above: Result Comment: Nella jose Meter Performed By: #### 2 14754434 ####[facility] [address] [place] [address] Glucose [Mass/Vol] 146 mg/dL High 55-99 [facility] Comment on above: Result Comment: Javier childress RN/ Performed By: #### 2 12876224 ####[facility] [address] [place] [address] Glucose [Mass/Vol] 183 mg/dL High 55-99 [facility] Comment on above: Result Comment: Javier childress RN/ Performed By: #### 2 42980371 ####[facility] [address] [place] [address] Insurance Correspondence Off iceon 12-04-2020 Insurance Correspondence Office [id number]#[id number]:127 Normal [facility] Interdisciplinary Note - Spe ech Languageon 12-04-2020 Interdisciplinary Note - Speech Language Normal [facility] IntraOperative Documentson 0 12-04-2020 IntraOperative Documents [id number]#[id number]:127 Normal [facility] Monitor Recordon 12-04-2020 Monitor Record [id number]#[id number]:127 Normal [facility] Monitor Record [id number]#[id number]:127 Normal [facility] XR Adult Swallowing Function w/ Videoon 12-04-2020 XR Adult Swallowing Function w/ Video Normal [facility] XR Chest Single Viewon 12-04 XR Chest Single View Normal [facility] eGFRon 12-04-2020 GFR/1.73 sq M.predicted among blacks MDRD (S/P/Bld) [Vol rate/Area] mL/min/{1.73_m2} Normal >=59 [facility] Comment on above: Order Comment: Order added by Discern Expert. Result Comment: eGFR is race adjusted. AA=. Performed By: #### 2 230555, 71608083, 3696880, 2704757 ####[facility] [address] [place] [address] GFR/1.73 sq M.predicted among non-blacks MDRD (S/P/Bld) [Vol rate/Area] mL/min/{1.73_m2} Normal >=59 [facility] Comment on above: Order Comment: Order added by Discern Expert. Result Comment: 3 Year Olds Preschool Teacher nik kidney disease could be indicated at eGFR's of less than 60 mL/min/1.73m2. Kidney failure is indicated at less than 15 mL/min/1.73m2. Performed By: #### 2 631971, 36493596, 1783272, 7956441 ####[facility] [address] [place] [address] Auto Diffon 12-03-2020 Basophils/100 WBC (Bld) 0.1 % Normal 0.0-2.0 [facility] Comment on above: Order Comment: Order Added by Discern Expert. Performed By: #### 2 392128, 87625920, 5796196, 6490071, 2929509 ####[facility] [address] [place] [address] Basophils/Leukocyt es Auto (Bld) [Pure # fraction] 0.0 E9/L Normal 0.0-0.2 [facility] Comment on above: Order Comment: Order Added by Discern Expert. Performed By: #### 2 060384, 09214901, 0924203, 4375537, 2554387 ####[facility] [address] [place] [address] Eosinophils/100 WBC (Bld) 0.6 % Normal 0.0-8.0 [facility] Comment on above: Order Comment: Order Added by Discern Expert. Performed By: #### 2 [id number], [id number], [id number] ####[facility] [address] [place] [address] Eosinophils/Leukoc ytes Auto (Bld) [Pure # fraction] 0.1 E9/L Normal 0.0-0.5 [facility] Comment on above: Order Comment: Order Added by Discern Expert. Performed By: #### 2 915278, 35051371, 3091544, 2575663, 6487825 ####[facility] [address] [place] [address] Lymphocytes/100 WBC (Bld) 6.9 % Low 14.0-50.0 [facility] Comment on above: Order Comment: Order Added by Discern Expert. Performed By: #### 2 656240, 78095624, 7963091, 6616729, 1220695 ####[address] [place] [address] Lymphocytes/Leukoc ytes Auto (Bld) [Pure # fraction] 0.7 E9/L Low 1.0-4.0 [facility] Comment on above: Order Comment: Order Added by Nic Expert. Performed By: #### 2 374611, 61464352, 4507154, 1768219, 4882171 ####[address] [place] [address] Monocytes/100 WBC (Bld) 11.5 % Normal 4.0-14.0 [facility] Comment on above: Order Comment: Order Added by Nic Expert. Performed By: #### 2 537899, 08466527, 2970750, 0671071, 7924331 ####[address] [address] Monocytes/Leukocyt es Auto (Bld) [Pure # fraction] 1.2 E9/L High 0.2-1.0 [facility] Comment on above: Order Comment: Order Added by Discern Expert. Performed By: #### 2 704832, 01934990, 4849985, 5655622, 8095721 ####[address] [place] [address] Neutrophils/100 WBC (Bld) 80.9 % High 36.0-75.0 [facility] Comment on above: Order Comment: Order Added by Discern Expert. Performed By: #### 2 772955, 36495588, 8526333, 8740915, 6057349 ####[facility] [address] [place] [address] Neutrophils/Leukoc ytes Auto (Bld) [Pure # fraction] 8.2 E9/L High 2.0-7.5 [facility] Comment on above: Order Comment: Order Added by Discern Expert. Performed By: #### 2 607892, 52005773, 6509640, 6971129, 5767982 ####[facility] [address] [place] [address] BMPon 12-03-2020 Anion gap [Moles/Vol] 11 mmol/L Normal 6-16 [facility] Comment on above: Performed By: #### 2 102974, 47099561, 2251338, 7269058, 2045198 ####[facility] [address] [place] [address] Calcium [Mass/Vol] 7.4 mg/dL Low 8.9-11.1 [facility] Comment on above: Performed By: #### 2 068242, 32071100, 9895366, 5737382, 8749800 ####[facility] [address] [place] [address] Chloride [Moles/Vol] 99 mmol/L Low 101-111 [facility] Comment on above: Performed By: #### 2 170967, 77796464, 6066750, 1419775, 9336401 ####[facility] [address] [place] [address] CO2 [Moles/Vol] 30 mmol/L Normal 21-31 [facility] Comment on above: Performed By: #### 2 322828, 18237832, 8417281, 2987702, 1620767 ####[facility] [address] [place] [address] Creatinine [Mass/Vol] 0.8 mg/dL Normal 0.5-1.3 [facility] Comment on above: Performed By: #### 2 748409, 74372810, 5579769, 4584917, 8311420 ####[facility] [address] [place] [address] Glucose [Mass/Vol] 189 mg/dL Normal 55-199 [facility] Comment on above: Result Comment: If t his glucose result represents a fasting glucose, interpretation should refer to the following reference range: 55-99 mg/dL Performed By: #### 2 641567, 07446017, 5281520, 5316847, 2590625 ####[facility] [address] [place] [address] Potassium [Moles/Vol] 3.2 mmol/L Low 3.5-5.3 [facility] Comment on above: Performed By: #### 2 766235, 16616901, 3184033, 4645644, 0616946 ####[facility] [address] [place] [address] Sodium [Moles/Vol] 137 mmol/L Normal 135-145 [facility] Comment on above: Performed By: #### 2 729100, 09719823, 4202416, 4579744, 6810706 ####[facility] [address] [place] [address] Urea nitrogen [Mass/Vol] 18 mg/dL Normal 5-21 [facility] Comment on above: Performed By: #### 2 827179, 34248147, 8710202, 5554361, 1267833 ####[facility] [address] [place] [address] Urea nitrogen/Creatinin e [Mass ratio] 22 No Units High 10-20 [facility] Comment on above: Performed By: #### 2 110243, 62961685, 7003858, 7269157, 6244239 ####[facility] [address] [place] [address] CBC w/ Auto Diffon 1 Erythrocyte distribution width (RBC) [Ratio] 14.8 % High 10.9-14.2 [facility] Comment on above: Performed By: #### 2 161934, 54957053, 4855787, 3987230, 6781683 ####[facility] [address] [place] [address] Hematocrit (Bld) [Volume fraction] 23.7 % Low 37.7-49.0 [facility] Comment on above: Performed By: #### 2 162734, 43075410, 1212206, 2016561, 2172835 ####[address] [place] [address] Hemoglobin (Bld) [Mass/Vol] 8.8 g/dL Low 13.5-17.5 [facility] Comment on above: Performed By: #### 2 955750, 36676527, 9453308, 4042393, 5451438 ####[address] [address] MCH (RBC) [Entitic mass] 33.5 pg Normal 27.0-34.0 [facility] Comment on above: Performed By: #### 2 511270, 30805843, 7715884, 8628912, 1673808 ####[address] [address] MCHC (RBC) [Mass/Vol] 37.0 g/dL High 31.4-36.0 [facility] Comment on above: Performed By: #### 2 142973, 08097100, 3020932, 8603173, 0111165 ####[address] [address] MCV (RBC) [Entitic vol] 90.6 fL Normal 80.0-100.0 [facility] Comment on above: Performed By: #### 2 649911, 61570450, 5937824, 6319443, 4863121 ####[address] [place] [address] Platelet mean volume (Bld) [Entitic vol] 7.8 fL Normal 6.4-10.8 [facility] Comment on above: Performed By: #### 2 588385, 87211631, 6683940, 6405434, 8279494 ####[facility] [address] [place] [address] Platelets (Bld) [#/Vol] 247.0 E9/L Normal 150.0-500. 0 [facility] Comment on above: Performed By: #### 2 123298, 07049322, 1131009, 4547998, 9211212 ####[facility] [address] [place] [address] RBC (Bld) [#/Vol] 2.6 E12/L Low 4.3-5.9 [facility] Comment on above: Performed By: #### 2 702210, 65993556, 9709562, 1868506, 3948128 ####[address] [address] WBC corrected for nucl RBC Auto (Bld) [#/Vol] 10.2 E9/L Normal 4.0-11.0 [facility] Comment on above: Performed By: #### 2 389091, 34847780, 4472900, 6258872, 9199916 ####[address] [address] Capillary Glucose POCon 11-21 Glucose [Mass/Vol] 229 mg/dL High 55-99 [facility] Comment on above: Result Comment: Javier WEBB Performed By: #### 2 41316538 ####[address] [place] [address] Glucose [Mass/Vol] 221 mg/dL High 55-99 [facility] Comment on above: Result Comment: Javier WEBB Performed By: #### 2 43866233 ####[address] [place] [address] Glucose [Mass/Vol] 159 mg/dL High 55-99 [facility] Comment on above: Result Comment: Javier WEBB Performed By: #### 2 77273064 ####[address] [place] [address] Glucose [Mass/Vol] 182 mg/dL High 55-99 [facility] Comment on above: Result Comment: Javier childress RN/ Performed By: #### 2 74700719 ####[facility] [address] [place] [address] Monitor Recordon 12-03-2020 Monitor Record [id number]:127 Normal [facility] Monitor Record [id number]:127 Normal [facility] Progress Note-Physicianon Progress Note-Physician [facility] Comment on above: Result Comment: Elec tronically Signed By: Sasha Pacheco MDrna X\.br\Date and Time Signed: 12/03/20 14:40 EDT Progress Note-Physician [facility] Comment on above: Result Comment: Elec tronically Signed By: Katie Pacheco MD X\.br\Date and Time Signed: 12/03/20 14:37 EDT Progress Note-Physician [facility] Comment on above: Result Comment: Elec tronically Signed By: Farideh Underwood PA-C\.br\Date and Time Signed: 11/30/20 10:21 EDT\.br\Electronically Co-Signed By: Katie Pacheco MD X\.br\Date and Time Co-Signed: 12/03/20 14:17 EDT Progress Note-Physician [facility] Comment on above: Result Comment: Elec tronically Signed By: Farideh Underwood PA-C\.br\Date and Time Signed: 11/29/20 14:32 EDT\.br\Electronically Co-Signed By: Katie Pacheco MD X\.br\Date and Time Co-Signed: 12/03/20 14:16 EDT Progress Note-Physician [facility] Comment on above: Result Comment: Elec tronically Signed By: Farideh Underwood PA-C\.br\Date and Time Signed: 11/28/20 09:22 EDT\.br\Electronically Co-Signed By: Tara NARAYANAN, Katie X\.br\Date and Time Co-Signed: 12/03/20 14:11 EDT Triglycerideson 12-03-2020 Triglyceride [Mass/Vol] 130 mg/dL Normal <=149 [facility] Comment on above: Order Comment: Recom mended if patient on propofol > 72 hours. Performed By: #### 2 123754, 55688504, 8684932, 4565532, 7137972 ####[facility] [address] [place] [address] eGFRon 12-03-2020 GFR/1.73 sq M.predicted among blacks MDRD (S/P/Bld) [Vol rate/Area] mL/min/{1.73_m2} Normal >=59 [facility] Comment on above: Order Comment: Order added by Discern Expert. Result Comment: eGFR is race adjusted. AA=. Performed By: #### 2 586763, 23882063, 8270123, 2682626, 8334596 ####[facility] [address] [place] [address] GFR/1.73 sq M.predicted among non-blacks MDRD (S/P/Bld) [Vol rate/Area] mL/min/{1.73_m2} Normal >=59 [facility] Comment on above: Order Comment: Order added by Discern Expert. Result Comment: 3 Year Olds Preschool Teacher nik kidney disease could be indicated at eGFR's of less than 60 mL/min/1.73m2. Kidney failure is indicated at less than 15 mL/min/1.73m2. Performed By: #### 2 621255, 49707542, 0938841, 4370248, 6823515 ####[facility] [address] [place] [address] Auto Diffon 12-02-2020 Basophils/100 WBC (Bld) 0.2 % Normal 0.0-2.0 [facility] Comment on above: Order Comment: Order Added by Discern Expert. Performed By: #### 2 444069, 6349904, 0451176, 16162539 ####[facility] [address] [address] Basophils/Leukocyt es Auto (Bld) [Pure # fraction] 0.0 E9/L Normal 0.0-0.2 [facility] Comment on above: Order Comment: Order Added by Discern Expert. Performed By: #### 2 710642, 7414536, 6246464, 48440710 ####[address] [address] Eosinophils/100 WBC (Bld) 0.4 % Normal 0.0-8.0 [facility] Comment on above: Order Comment: Order Added by Discern Expert. Performed By: #### 2 132978, 3050562, 1493197, 70398767 ####[address] [address] Eosinophils/Leukoc ytes Auto (Bld) [Pure # fraction] 0.0 E9/L Normal 0.0-0.5 [facility] Comment on above: Order Comment: Order Added by Discern Expert. Performed By: #### 2 241370, 6330770, 5875465, 73429737 ####[address] [address] Lymphocytes/100 WBC (Bld) 5.3 % Low 14.0-50.0 [facility] Comment on above: Order Comment: Order Added by Nic Expert. Performed By: #### 2 770402, 0756119, 2245230, 42077721 ####[address] [address] Lymphocytes/Leukoc ytes Auto (Bld) [Pure # fraction] 0.5 E9/L Low 1.0-4.0 [facility] Comment on above: Order Comment: Order Added by Discern Expert. Performed By: #### 2 555516, 9925315, 5071952, 79426053 ####[address] [address] Monocytes/100 WBC (Bld) 13.5 % Normal 4.0-14.0 [facility] Comment on above: Order Comment: Order Added by Discern Expert. Performed By: #### 2 981735, 1575259, 3654142, 28931296 ####[facility] [address] [place] [address] Monocytes/Leukocyt es Auto (Bld) [Pure # fraction] 1.3 E9/L High 0.2-1.0 [facility] Comment on above: Order Comment: Order Added by Discern Expert. Performed By: #### 2 952168, 7188778, 2779068, 98662195 ####[address] [place] [address] Neutrophils/100 WBC (Bld) 80.6 % High 36.0-75.0 [facility] Comment on above: Order Comment: Order Added by Discern Expert. Performed By: #### 2 574035, 4434649, 8578549, 66061717 ####[address] [place] [address] Neutrophils/Leukoc ytes Auto (Bld) [Pure # fraction] 8.0 E9/L High 2.0-7.5 [facility] Comment on above: Order Comment: Order Added by Nic Expert. Performed By: #### 2 197595, 5573422, 8725019, 97360754 ####[facility] [address] [place] [address] BMPon 12-02-2020 Anion gap [Moles/Vol] 13 mmol/L Normal 6-16 [facility] Comment on above: Performed By: #### 2 753144, 7742568, 1244606, 28651276 ####[facility] [address] [place] [address] Calcium [Mass/Vol] 7.7 mg/dL Low 8.9-11.1 [facility] Comment on above: Performed By: #### 2 164239, 4957569, 1743739, 90546630 ####[facility] [address] [place] [address] Chloride [Moles/Vol] 102 mmol/L Normal 101-111 [facility] Comment on above: Performed By: #### 2 672928, 1338559, 7920905, 61040473 ####[facility] [address] [place] [address] CO2 [Moles/Vol] 27 mmol/L Normal 21-31 [facility] Comment on above: Performed By: #### 2 380604, 1388542, 1750076, 83281783 ####[facility] [address] [place] [address] Creatinine [Mass/Vol] 0.8 mg/dL Normal 0.5-1.3 [facility] Comment on above: Performed By: #### 2 791111, 3678798, 7419204, 24598533 ####[facility] [address] [place] [address] Glucose [Mass/Vol] 158 mg/dL Normal 55-199 [facility] Comment on above: Result Comment: If t his glucose result represents a fasting glucose, interpretation should refer to the following reference range: 55-99 mg/dL Performed By: #### 2 069364, 3839372, 0499380, 03325913 ####[facility] [address] [place] [address] Potassium [Moles/Vol] 3.5 mmol/L Normal 3.5-5.3 [facility] Comment on above: Performed By: #### 2 249705, 2300151, 7729703, 33240889 ####[facility] [address] [place] [address] Sodium [Moles/Vol] 138 mmol/L Normal 135-145 [facility] Comment on above: Performed By: #### 2 532790, 2682732, 3836534, 89602765 ####[facility] [address] [place] [address] Urea nitrogen [Mass/Vol] 20 mg/dL Normal 5-21 [facility] Comment on above: Performed By: #### 2 305981, 9657529, 5018567, 73473671 ####[facility] [address] [place] [address] Urea nitrogen/Creatinin e [Mass ratio] 25 No Units High 10-20 [facility] Comment on above: Performed By: #### 2 505815, 7910553, 0334976, 11780040 ####[address] [address] CBC w/ Auto Diffon Erythrocyte distribution width (RBC) [Ratio] 14.1 % Normal 10.9-14.2 [facility] Comment on above: Performed By: #### 2 832006, 5859189, 3156427, 24746712 ####[address] [address] Hematocrit (Bld) [Volume fraction] 27.0 % Low 37.7-49.0 [facility] Comment on above: Performed By: #### 2 694697, 4187106, 5565641, 89675132 ####[address] [address] Hemoglobin (Bld) [Mass/Vol] 9.3 g/dL Low 13.5-17.5 [facility] Comment on above: Performed By: #### 2 441903, 0574557, 5399921, 66533811 ####[address] [address] MCH (RBC) [Entitic mass] 30.7 pg Normal 27.0-34.0 [facility] Comment on above: Performed By: #### 2 241316, 5595934, 8689556, 71191818 ####[address] [address] MCHC (RBC) [Mass/Vol] 34.4 g/dL Normal 31.4-36.0 [facility] Comment on above: Performed By: #### 2 634984, 4756991, 7133842, 69350423 ####[address] [address] MCV (RBC) [Entitic vol] 89.3 fL Normal 80.0-100.0 [facility] Comment on above: Performed By: #### 2 449680, 3283529, 9266808, 85467624 ####[facility] [address] [place] [address] Platelet mean volume (Bld) [Entitic vol] 7.7 fL Normal 6.4-10.8 [facility] Comment on above: Performed By: #### 2 052896, 5959198, 2055739, 78055954 ####[address] [address] Platelets (Bld) [#/Vol] 211.0 E9/L Normal 150.0-500. 0 [facility] Comment on above: Performed By: #### 2 426480, 4461773, 3992949, 50335794 ####[address] [address] RBC (Bld) [#/Vol] 3.0 E12/L Low 4.3-5.9 [facility] Comment on above: Performed By: #### 2 857072, 3509472, 5599547, 34846985 ####[address] [address] WBC corrected for nucl RBC Auto (Bld) [#/Vol] 9.9 E9/L Normal 4.0-11.0 [facility] Comment on above: Performed By: #### 2 599986, 5231645, 5538364, 51546967 ####[address] [address] Capillary Glucose POCon 11-21 Glucose [Mass/Vol] 155 mg/dL High 55-99 [facility] Comment on above: Performed By: #### 2 95241321 ####[address] [address] Glucose [Mass/Vol] 159 mg/dL High 55-99 [facility] Comment on above: Result Comment: Javier childress RN/ Performed By: #### 2 94685795 ####[facility] [address] [place] [address] Glucose [Mass/Vol] 134 mg/dL High 55-99 [facility] Comment on above: Result Comment: Javier childress RN/ Performed By: #### 2 80758232 ####[facility] [address] [place] [address] Glucose [Mass/Vol] 137 mg/dL High 55-99 [facility] Comment on above: Result Comment: Javier childress RN/ Performed By: #### 2 43327879 ####[facility] [address] [place] [address] Monitor Recordon 12-02-2020 Monitor Record [id number]:127 Normal [facility] Monitor Record [id number]:127 Normal [facility] eGFRon 12-02-2020 GFR/1.73 sq M.predicted among blacks MDRD (S/P/Bld) [Vol rate/Area] mL/min/{1.73_m2} Normal >=59 [facility] Comment on above: Order Comment: Order added by Discern Expert. Result Comment: eGFR is race adjusted. AA=. Performed By: #### 2 796210, 9235426, 8563420, 29783851 ####[facility] [address] [place] [address] GFR/1.73 sq M.predicted among non-blacks MDRD (S/P/Bld) [Vol rate/Area] mL/min/{1.73_m2} Normal >=59 [facility] Comment on above: Order Comment: Order added by Discern Expert. Result Comment: 3 Year Olds Preschool Teacher nik kidney disease could be indicated at eGFR's of less than 60 mL/min/1.73m2. Kidney failure is indicated at less than 15 mL/min/1.73m2. Performed By: #### 2 208439, 5699368, 6418220, 95685327 ####[facility] [address] [place] [address] Auto Diffon 12-01-2020 Basophils/100 WBC (Bld) 0.1 % Normal 0.0-2.0 [facility] Comment on above: Order Comment: Order Added by Discern Expert. Performed By: #### 2 406000, 3466230, 4788549, 4201615, 51199576 ####[address] [address] Basophils/Leukocyt es Auto (Bld) [Pure # fraction] 0.0 E9/L Normal 0.0-0.2 [facility] Comment on above: Order Comment: Order Added by Discern Expert. Performed By: #### 2 733736, 3457656, 4027931, 2884981, 05332878 ####[address] [address] Eosinophils/100 WBC (Bld) 1.0 % Normal 0.0-8.0 [facility] Comment on above: Order Comment: Order Added by Discern Expert. Performed By: #### 2 601806, 9565616, 9156259, 6205225, 09565477 ####[address] [address] Eosinophils/Leukoc ytes Auto (Bld) [Pure # fraction] 0.1 E9/L Normal 0.0-0.5 [facility] Comment on above: Order Comment: Order Added by Discern Expert. Performed By: #### 2 588126, 9626199, 7713557, 7873355, 86555378 ####[address] [address] Lymphocytes/100 WBC (Bld) 10.1 % Low 14.0-50.0 [facility] Comment on above: Order Comment: Order Added by Discern Expert. Performed By: #### 2 272707, 0987544, 9847853, 4728142, 90427299 ####[address] [address] Lymphocytes/Leukoc ytes Auto (Bld) [Pure # fraction] 0.7 E9/L Low 1.0-4.0 [facility] Comment on above: Order Comment: Order Added by Discern Expert. Performed By: #### 2 913818, 1709641, 3589290, 6817369, 87101562 ####[address] [place] [address] Monocytes/100 WBC (Bld) 18.7 % High 4.0-14.0 [facility] Comment on above: Order Comment: Order Added by Discern Expert. Performed By: #### 2 732379, 8467544, 2145112, 3978785, 16403495 ####[address] [place] [address] Monocytes/Leukocyt es Auto (Bld) [Pure # fraction] 1.2 E9/L High 0.2-1.0 [facility] Comment on above: Order Comment: Order Added by Discern Expert. Performed By: #### 2 687365, 1301028, 9088676, 4127305, 44560746 ####[address] [place] [address] Neutrophils/100 WBC (Bld) 70.1 % Normal 36.0-75.0 [facility] Comment on above: Order Comment: Order Added by Discern Expert. Performed By: #### 2 670199, 0709909, 7016488, 0592749, 42230912 ####[address] [place] [address] Neutrophils/Leukoc ytes Auto (Bld) [Pure # fraction] 4.6 E9/L Normal 2.0-7.5 [facility] Comment on above: Order Comment: Order Added by Discern Expert. Performed By: #### 2 211176, 1153045, 1035142, 8971637, 97200443 ####[address] [place] [address] BMPon 12-01-2020 Anion gap [Moles/Vol] 12 mmol/L Normal 6-16 [facility] Comment on above: Performed By: #### 2 768327, 1126060, 6367471, 3475477, 55048517 ####[facility] [address] [place] [address] Calcium [Mass/Vol] 7.8 mg/dL Low 8.9-11.1 [facility] Comment on above: Performed By: #### 2 593389, 1709500, 4724951, 0683458, 21131380 ####[facility] [address] [place] [address] Chloride [Moles/Vol] 102 mmol/L Normal 101-111 [facility] Comment on above: Performed By: #### 2 678727, 6788039, 2395316, 4743954, 05877710 ####[facility] [address] [place] [address] CO2 [Moles/Vol] 28 mmol/L Normal 21-31 [facility] Comment on above: Performed By: #### 2 991780, 1308552, 6909366, 1696081, 31480444 ####[facility] [address] [place] [address] Creatinine [Mass/Vol] 0.8 mg/dL Normal 0.5-1.3 [facility] Comment on above: Performed By: #### 2 105723, 0292681, 0659857, 8386144, 80869987 ####[facility] [address] [place] [address] Glucose [Mass/Vol] 127 mg/dL Normal 55-199 [facility] Comment on above: Result Comment: If t his glucose result represents a fasting glucose, interpretation should refer to the following reference range: 55-99 mg/dL Performed By: #### 2 645860, 8638896, 1560429, 6870793, 93888690 ####[facility] [address] [place] [address] Potassium [Moles/Vol] 3.5 mmol/L Normal 3.5-5.3 [facility] Comment on above: Performed By: #### 2 108586, 6236646, 1474296, 2822980, 54452351 ####[facility] [address] [place] [address] Sodium [Moles/Vol] 138 mmol/L Normal 135-145 [facility] Comment on above: Performed By: #### 2 751762, 9254344, 2711824, 6776796, 92134676 ####[facility] [address] [place] [address] Urea nitrogen [Mass/Vol] 24 mg/dL High 5-21 [facility] Comment on above: Performed By: #### 2 990541, 4582698, 7303410, 2811876, 21039266 ####[facility] [address] [place] [address] Urea nitrogen/Creatinin e [Mass ratio] 30 No Units High 10-20 [facility] Comment on above: Performed By: #### 2 012241, 8612329, 7604075, 9121001, 71106520 ####[facility] [address] [place] [address] CBC w/ Auto Diffon 1 Erythrocyte distribution width (RBC) [Ratio] 14.3 % High 10.9-14.2 [facility] Comment on above: Performed By: #### 2 794897, 7981640, 7569692, 7683500, 55391399 ####[address] [place] [address] Hematocrit (Bld) [Volume fraction] 25.8 % Low 37.7-49.0 [facility] Comment on above: Performed By: #### 2 660857, 4189022, 8768030, 9286304, 67064262 ####[facility] [address] [place] [address] Hemoglobin (Bld) [Mass/Vol] 8.8 g/dL Low 13.5-17.5 [facility] Comment on above: Performed By: #### 2 522970, 2751870, 0928298, 5549292, 73086243 ####[facility] [address] [place] [address] MCH (RBC) [Entitic mass] 30.6 pg Normal 27.0-34.0 [facility] Comment on above: Performed By: #### 2 395807, 8141315, 6200475, 8983917, 03361200 ####[address] [place] [address] MCHC (RBC) [Mass/Vol] 33.9 g/dL Normal 31.4-36.0 [facility] Comment on above: Performed By: #### 2 147378, 0028849, 6634067, 1626660, 99458711 ####[place] [address] MCV (RBC) [Entitic vol] 90.3 fL Normal 80.0-100.0 [facility] Comment on above: Performed By: #### 2 532434, 7612863, 3223163, 9912755, 45033687 ####[address] [address] Platelet mean volume (Bld) [Entitic vol] 7.4 fL Normal 6.4-10.8 [facility] Comment on above: Performed By: #### 2 630465, 3242637, 3092761, 3118131, [id number] ####[address] [address] Platelets (Bld) [#/Vol] 168.0 E9/L Normal 150.0-500. 0 [facility] Comment on above: Performed By: #### 2 634856, 9528601, 3009917, 8061492, [id number] ####[address] [address] RBC (Bld) [#/Vol] 2.9 E12/L Low 4.3-5.9 [facility] Comment on above: Performed By: #### 2 128009, 9387472, 5723518, 0498784, [id number] ####[facility] [address] [place] [address] WBC corrected for nucl RBC Auto (Bld) [#/Vol] 6.6 E9/L Normal 4.0-11.0 [facility] Comment on above: Result Comment: Slid e reviewed by cmk. Performed By: #### 2 567506, 3401167, 9585862, 3440295, [id number] ####[facility] [address] [place] [address] Capillary Glucose POCon 11-21 Glucose [Mass/Vol] 121 mg/dL High 55-99 [facility] Comment on above: Result Comment: Javier childress RN/ Performed By: #### 2 [id number] ####[address] [address] Glucose [Mass/Vol] 147 mg/dL High 55-99 [facility] Comment on above: Result Comment: Javier WEBB Performed By: #### 2 [id number] ####[place] [address] [place] [address] Glucose [Mass/Vol] 111 mg/dL High 55-99 [facility] Comment on above: Result Comment: Nella jose Meter Performed By: #### 2 [id number] ####[address] [address] Glucose [Mass/Vol] 107 mg/dL High 55-99 [facility] Comment on above: Result Comment: Nella jose Meter Performed By: #### 2 [id number] ####[facility] [address] [place] [address] EMS Documentationon 12-02-19 21 EMS Documentation [id number]#[id number]:127 Normal [facility] Interdisciplinary Note - Sonido e Manageron 12-01-2020 Interdisciplinary Note - Marine Services Technician Normal [facility] Comment on above: Result Comment: Elec tronically Signed By: Vinay BURNHAM, Alanna\.br\Date and Time Signed: 12/01/20 17:44 EDT Interdisciplinary Note - Nut ritionon 12-01-2020 Interdisciplinary Note - Nutrition [facility] Comment on above: Result Comment: Elec tronically Signed By: Madeline ZAVALA, Kandace HINDS\.br\Date and Time Signed: 12/01/20 13:43 EDT Interdisciplinary Note - Spe ech Languageon 12-01-2020 Interdisciplinary Note - Speech Language [facility] IntraOperative Documentson 0 12-01-2020 IntraOperative Documents [id number]#1.00CD:127 [facility] Monitor Recordon 12-01-2020 Monitor Record [id number]#1.00CD:127 [facility] Monitor Record [id number]#1.00CD:127 [facility] Monitor Record [id number]#1.00CD:127 [facility] Monitor Record [id number]#1.00CD:127 [facility] Monitor Record [id number]#1.00CD:127 [facility] Monitor Record [id number]#1.00CD:127 [facility] Monitor Record [id number]#1.00CD:127 [facility] Progress Note - Pharmacyon 0 12-01-2020 Progress Note - Pharmacy [facility] Progress Note-Physicianon Progress Note-Physician [facility] Comment on above: Result Comment: Elec tronically Signed By: Farideh Underwood PA-C\.br\Date and Time Signed: 12/01/20 12:51 EDT\.br\Electronically Co-Signed By: Tara NARAYANAN, Katie X\.br\Date and Time Co-Signed: 12/01/20 15:31 EDT Triglycerideson 12-01-2020 Triglyceride [Mass/Vol] 168 mg/dL High <=149 [facility] Comment on above: Order Comment: Recom mended if patient on propofol > 72 hours. Performed By: #### 2 653997, 4133459, 6089842, 8283058, 61302755 ####[facility] [address] [place] [address] eGFRon 12-01-2020 GFR/1.73 sq M.predicted among blacks MDRD (S/P/Bld) [Vol rate/Area] mL/min/{1.73_m2} Normal >=59 [facility] Comment on above: Order Comment: Order added by Discern Expert. Result Comment: eGFR is race adjusted. AA=. Performed By: #### 2 246746, 6355662, 2613417, 2402434, 74448582 ####[facility] [address] [place] [address] GFR/1.73 sq M.predicted among non-blacks MDRD (S/P/Bld) [Vol rate/Area] mL/min/{1.73_m2} Normal >=59 [facility] Comment on above: Order Comment: Order added by Discern Expert. Result Comment: 3 Year Olds Preschool Teacher nik kidney disease could be indicated at eGFR's of less than 60 mL/min/1.73m2. Kidney failure is indicated at less than 15 mL/min/1.73m2. Performed By: #### 2 721901, 7310181, 0057335, 1685098, 09459982 ####[facility] [address] [place] [address] Auto Diffon 11-30-2020 Basophils/100 WBC (Bld) 0.1 % Normal 0.0-2.0 [facility] Comment on above: Order Comment: Order Added by Discern Expert. Performed By: #### 2 310393, 03798348, 6640944, 6804155 ####[address] [place] [address] Basophils/Leukocyt es Auto (Bld) [Pure # fraction] 0.0 E9/L Normal 0.0-0.2 [facility] Comment on above: Order Comment: Order Added by Discern Expert. Performed By: #### 2 250461, 73905378, 9856425, 7183622 ####[address] [address] Eosinophils/100 WBC (Bld) 0.3 % Normal 0.0-8.0 [facility] Comment on above: Order Comment: Order Added by Nic Expert. Performed By: #### 2 326166, 73858080, 9644726, 3968999 ####[address] [address] Eosinophils/Leukoc ytes Auto (Bld) [Pure # fraction] 0.0 E9/L Normal 0.0-0.5 [facility] Comment on above: Order Comment: Order Added by Nic Expert. Performed By: #### 2 851406, 62571020, 6410037, 5789662 ####[address] [address] Lymphocytes/100 WBC (Bld) 10.6 % Low 14.0-50.0 [facility] Comment on above: Order Comment: Order Added by Nic Expert. Performed By: #### 2 500628, 82881070, 2090618, 3585455 ####[address] [address] Lymphocytes/Leukoc ytes Auto (Bld) [Pure # fraction] 0.7 E9/L Low 1.0-4.0 [facility] Comment on above: Order Comment: Order Added by Nic Expert. Performed By: #### 2 916423, 83682647, 8021378, 0922584 ####[address] [address] Monocytes/100 WBC (Bld) 17.8 % High 4.0-14.0 [facility] Comment on above: Order Comment: Order Added by Discern Expert. Performed By: #### 2 230344, 48832617, 6667989, 9851003 ####[facility] [address] [place] [address] Monocytes/Leukocyt es Auto (Bld) [Pure # fraction] 1.1 E9/L High 0.2-1.0 [facility] Comment on above: Order Comment: Order Added by Discern Expert. Performed By: #### 2 924607, 36569304, 7238754, 7399096 ####[facility] [address] [place] [address] Neutrophils/100 WBC (Bld) 71.2 % Normal 36.0-75.0 [facility] Comment on above: Order Comment: Order Added by Discern Expert. Performed By: #### 2 910440, 37955699, 1302286, 4808551 ####[address] [place] [address] Neutrophils/Leukoc ytes Auto (Bld) [Pure # fraction] 4.6 E9/L Normal 2.0-7.5 [facility] Comment on above: Order Comment: Order Added by Nic Expert. Performed By: #### 2 576229, 31184681, 4168885, 6910324 ####[facility] [address] [place] [address] BMPon 11-30-2020 Anion gap [Moles/Vol] 10 mmol/L Normal 6-16 [facility] Comment on above: Performed By: #### 2 866622, 14351850, 7861146, 6445915 ####[facility] [address] [place] [address] Calcium [Mass/Vol] 7.7 mg/dL Low 8.9-11.1 [facility] Comment on above: Performed By: #### 2 510214, 90549342, 6299840, 2485478 ####[facility] [address] [place] [address] Chloride [Moles/Vol] 108 mmol/L Normal 101-111 [facility] Comment on above: Performed By: #### 2 017701, 68042916, 1909980, 9898660 ####[facility] [address] [place] [address] CO2 [Moles/Vol] 27 mmol/L Normal 21-31 [facility] Comment on above: Performed By: #### 2 144252, 28040623, 7376761, 7671445 ####[facility] [address] [place] [address] Creatinine [Mass/Vol] 0.8 mg/dL Normal 0.5-1.3 [facility] Comment on above: Performed By: #### 2 330011, 24944887, 7682808, 5442755 ####[facility] [address] [place] [address] Glucose [Mass/Vol] 137 mg/dL Normal 55-199 [facility] Comment on above: Result Comment: If t his glucose result represents a fasting glucose, interpretation should refer to the following reference range: 55-99 mg/dL Performed By: #### 2 013284, 71763639, 3626096, 9146608 ####[facility] [address] [place] [address] Potassium [Moles/Vol] 3.5 mmol/L Normal 3.5-5.3 [facility] Comment on above: Performed By: #### 2 169837, 41660195, 5404133, 4355650 ####[facility] [address] [place] [address] Sodium [Moles/Vol] 141 mmol/L Normal 135-145 [facility] Comment on above: Performed By: #### 2 278240, 80092886, 1158498, 7851959 ####[facility] [address] [place] [address] Urea nitrogen [Mass/Vol] 26 mg/dL High 5-21 [facility] Comment on above: Performed By: #### 2 097837, 74124353, 8695499, 6251344 ####[facility] [address] [place] [address] Urea nitrogen/Creatinin e [Mass ratio] 32 No Units High 10-20 [facility] Comment on above: Performed By: #### 2 196948, 17886241, 4826325, 7694640 ####[facility] [address] [place] [address] Blood Gas Art, with Lytes, G jerzy, [place] 11-30-2020 a/A Ratio Art 34.70 % Normal >=0.80 [facility] Comment on above: Performed By: #### 4 11391196 ####[address] [place] [address] AaDO2 Art 128.1 mmHg High 5.0-15.0 [facility] Comment on above: Performed By: #### 4 97863005 ####[address] [address] ACT. Rate 20 Invalid Interpretation Code [facility] Comment on above: Performed By: #### 4 [id number] ####[address] [address] Allens Test Positive Normal [facility] Comment on above: Performed By: #### 4 91674050 ####[address] [address] Base Excess Arterial 5.3 mmol/L Normal >=2.8 [facility] Comment on above: Performed By: #### 4 66653348 ####[address] [address] cCa2+ Art 4.45 mg/dL Normal 4.40-5.30 [facility] Comment on above: Performed By: #### 4 70181046 ####[address] [address] cCl- Art 104.0 mmol/L Normal 101.0-111. 0 [facility] Comment on above: Performed By: #### 4 12970674 ####[address] [place] [address] cGlu Art 136.0 mg/dL Normal 55.0-199.0 [facility] Comment on above: Performed By: #### 4 74367581 ####[address] [address] cK+ Art 3.6 mmol/L Normal 3.5-5.3 [facility] Comment on above: Performed By: #### 4 15099534 ####[place] [address] cLac Art .8 mmol/L Low 5.0-14.0 [facility] Comment on above: Performed By: #### 4 51423637 ####[place] [address] backbreaker+ Art 139.0 mmol/L Normal 135.0-145. 0 [facility] Comment on above: Performed By: #### 4 48148661 ####[place] [address] Device Ventilator Normal [facility] Comment on above: Performed By: #### 4 23341194 ####[place] [address] Drawn by trs Invalid Interpretation Code [facility] Comment on above: Performed By: #### 4 04691266 ####[address] [address] FCOHb Art 1.2 % Low 1.5-4.9 [facility] Comment on above: Result Comment: Refe rence rangeNonsmoker <1.5%Smoker <5.0%Heavy Smoker <9.0% Performed By: #### 4 36797869 ####[address] [address] FIO2 BG 35.0 Invalid Interpretation Code [facility] Comment on above: Performed By: #### 4 76011108 ####[address] [address] FMetHb Art 0.7 % Normal 0.0-1.9 [facility] Comment on above: Performed By: #### 4 30747155 ####[address] [place] [address] FO2Hb Art 92.1 % Low 93.0-100.0 [facility] Comment on above: Performed By: #### 4 49701943 ####[address] [address] HCO3 (Bld) [Moles/Vol] 29.1 mmol/L High 22.0-26.0 [facility] Comment on above: Performed By: #### 4 96812966 ####[address] [address] Hemoglobin (Bld) [Mass/Vol] 9.3 g/dL Low 12.0-17.0 [facility] Comment on above: Performed By: #### 4 55266743 ####[address] [address] Oxygen saturation in Blood 93.8 % Low 95.0-100.0 [facility] Comment on above: Performed By: #### 4 09029071 ####[address] [address] P CO2 Arterial 41.3 mmHg Normal 35.0-45.0 [facility] Comment on above: Performed By: #### 4 11907806 ####[address] [address] P O2 Arterial 68.1 mmHg Low 80.0-100.0 [facility] Comment on above: Performed By: #### 4 17763154 ####[address] [address] PEEP 5 Invalid Interpretation Code [facility] Comment on above: Performed By: #### 4 83183909 ####[address] [address] pH Arterial 7.463 High 7.350-7.45 0 [facility] Comment on above: Performed By: #### 4 13733010 ####[facility] [address] [place] [address] Pressure Support. 5 Invalid Interpretation Code [facility] Comment on above: Performed By: #### 4 65089769 ####[facility] [address] [place] [address] Sample Site R Radial Normal [facility] Comment on above: Performed By: #### 4 13538619 ####[facility] [address] [place] [address] Sample Type Arterial Draw Normal [facility] Comment on above: Performed By: #### 4 02406840 ####[facility] [address] [place] [address] Vent Mode cpap Invalid Interpretation Code [facility] Comment on above: Performed By: #### 4 52888302 ####[facility] [address] [place], [place] [address] CBC w/ Auto Diffon 1 Erythrocyte distribution width (RBC) [Ratio] 14.4 % High 10.9-14.2 [facility] Comment on above: Performed By: #### 2 944677, 69459934, 8251356, 9264483 ####[facility] [address] [place] [address] Hematocrit (Bld) [Volume fraction] 23.7 % Low 37.7-49.0 [facility] Comment on above: Performed By: #### 2 974379, 63325883, 2843780, 4118216 ####[facility] [address] [place] [address] Hemoglobin (Bld) [Mass/Vol] 8.0 g/dL Low 13.5-17.5 [facility] Comment on above: Performed By: #### 2 445650, 98511615, 7029284, 4978998 ####[facility] [address] [place] [address] MCH (RBC) [Entitic mass] 30.7 pg Normal 27.0-34.0 [facility] Comment on above: Performed By: #### 2 439826, 26984478, 9431999, 7638337 ####[address] [place] [address] MCHC (RBC) [Mass/Vol] 33.6 g/dL Normal 31.4-36.0 [facility] Comment on above: Performed By: #### 2 011350, 53216403, 0383414, 4544500 ####[address] [address] MCV (RBC) [Entitic vol] 91.5 fL Normal 80.0-100.0 [facility] Comment on above: Performed By: #### 2 512844, 65451890, 1168761, 4069057 ####[address] [address] Platelet mean volume (Bld) [Entitic vol] 7.9 fL Normal 6.4-10.8 [facility] Comment on above: Performed By: #### 2 230220, 34674425, 0117992, 1549942 ####[address] [address] Platelets (Bld) [#/Vol] 143.0 E9/L Low 150.0-500. 0 [facility] Comment on above: Performed By: #### 2 049703, 65422012, 5683064, 2321949 ####[address] [address] RBC (Bld) [#/Vol] 2.6 E12/L Low 4.3-5.9 [facility] Comment on above: Performed By: #### 2 515239, 03747662, 2924723, 5613757 ####[address] [address] WBC corrected for nucl RBC Auto (Bld) [#/Vol] 6.4 E9/L Normal 4.0-11.0 [facility] Comment on above: Result Comment: Slid e reviewed by dc. Performed By: #### 2 513951, 24072714, 1449757, 3161724 ####[facility] [address] [place] [address] Capillary Glucose POCon 11-21 Glucose [Mass/Vol] 131 mg/dL High 55-99 [facility] Comment on above: Performed By: #### 2 71371468 ####[facility] [address] [place] [address] Glucose [Mass/Vol] 128 mg/dL High 55-99 [facility] Comment on above: Performed By: #### 2 22007764 ####[facility] [address] [place] [address] Glucose [Mass/Vol] 129 mg/dL High 55-99 [facility] Comment on above: Result Comment: Javier childress RN/ Performed By: #### 2 69720003 ####[facility] [address] [place] [address] Glucose [Mass/Vol] 125 mg/dL High 55-99 [facility] Comment on above: Result Comment: Javier childress RN/ Performed By: #### 2 35977902 ####[facility] [address] [place] [address] Interdisciplinary Note - Sonido e Manageron 11-30-2020 Interdisciplinary Note - Marine Services Technician Normal [facility] Comment on above: Result Comment: Elec tronically Signed By: Vinay BURNHAM, Alanna\.br\Date and Time Signed: 11/30/20 10:37 EDT Main OR Intraoperative Recor don 11-30-2020 Main OR Intraoperative Record Normal [facility] Progress Note - Pharmacyon 0 11-30-2020 Progress Note - Pharmacy Normal [facility] XR Chest Single Viewon 11-30 XR Chest Single View Normal [facility] eGFRon 11-30-2020 GFR/1.73 sq M.predicted among blacks MDRD (S/P/Bld) [Vol rate/Area] mL/min/{1.73_m2} Normal >=59 [facility] Comment on above: Order Comment: Order added by Discern Expert. Result Comment: eGFR is race adjusted. AA=. Performed By: #### 2 766054, 92819816, 9351091, 1381382 ####[facility] [address] [place] [address] GFR/1.73 sq M.predicted among non-blacks MDRD (S/P/Bld) [Vol rate/Area] mL/min/{1.73_m2} Normal >=59 [facility] Comment on above: Order Comment: Order added by Discern Expert. Result Comment: 3 Year Olds Preschool Teacher nik kidney disease could be indicated at eGFR's of less than 60 mL/min/1.73m2. Kidney failure is indicated at less than 15 mL/min/1.73m2. Performed By: #### 2 126625, 63212135, 0048288, 3443960 ####[facility] [address] [place] [address] Auto Diffon 11-29-2020 Basophils/100 WBC (Bld) 0.1 % Normal 0.0-2.0 [facility] Comment on above: Order Comment: Order Added by Discern Expert. Performed By: #### 2 971326, 82930249, 4830274, 9596103, 8375749 ####[facility] [address] [place] [address] Basophils/Leukocyt es Auto (Bld) [Pure # fraction] 0.0 E9/L Normal 0.0-0.2 [facility] Comment on above: Order Comment: Order Added by Discern Expert. Performed By: #### 2 487991, 71261168, 8181769, 9859511, 4720087 ####[facility] [address] [place] [address] Eosinophils/100 WBC (Bld) 0.1 % Normal 0.0-8.0 [facility] Comment on above: Order Comment: Order Added by Nic Expert. Performed By: #### 2 539593, 58568957, 7626244, 5458747, 2557369 ####[facility] [address] [place] [address] Eosinophils/Leukoc ytes Auto (Bld) [Pure # fraction] 0.0 E9/L Normal 0.0-0.5 [facility] Comment on above: Order Comment: Order Added by Discern Expert. Performed By: #### 2 730956, 90388910, 8187135, 9098082, 9493500 ####[address] [place] [address] Lymphocytes/100 WBC (Bld) 10.6 % Low 14.0-50.0 [facility] Comment on above: Order Comment: Order Added by Discern Expert. Performed By: #### 2 377204, 27437840, 7858974, 6281914, 9017374 ####[address] [address] Lymphocytes/Leukoc ytes Auto (Bld) [Pure # fraction] 0.7 E9/L Low 1.0-4.0 [facility] Comment on above: Order Comment: Order Added by Discern Expert. Performed By: #### 2 519155, 73067717, 8514205, 0036682, 0223574 ####[address] [address] Monocytes/100 WBC (Bld) 13.7 % Normal 4.0-14.0 [facility] Comment on above: Order Comment: Order Added by Discern Expert. Performed By: #### 2 944876, 36104051, 0009971, 8144107, 5733736 ####[address] [address] Monocytes/Leukocyt es Auto (Bld) [Pure # fraction] 0.9 E9/L Normal 0.2-1.0 [facility] Comment on above: Order Comment: Order Added by Discern Expert. Performed By: #### 2 687309, 54183405, 8642069, 0971866, 4625820 ####[address] [address] Neutrophils/100 WBC (Bld) 75.5 % High 36.0-75.0 [facility] Comment on above: Order Comment: Order Added by Discern Expert. Performed By: #### 2 224436, 18540995, 1219262, 8344286, 0319984 ####[facility] [address] [place] [address] Neutrophils/Leukoc ytes Auto (Bld) [Pure # fraction] 5.1 E9/L Normal 2.0-7.5 [facility] Comment on above: Order Comment: Order Added by Discern Expert. Performed By: #### 2 812363, 74164501, 0736351, 3474422, 7728617 ####[facility] [address] [place] [address] BMPon 11-29-2020 Anion gap [Moles/Vol] 7 mmol/L Normal 6-16 [facility] Comment on above: Performed By: #### 2 376721, 73263085, 1034525, 1490029, 2706027 ####[facility] [address] [place] [address] Calcium [Mass/Vol] 7.6 mg/dL Low 8.9-11.1 [facility] Comment on above: Performed By: #### 2 841840, 84069661, 8840569, 2171333, 5165873 ####[facility] [address] [place] [address] Chloride [Moles/Vol] 110 mmol/L Normal 101-111 [facility] Comment on above: Performed By: #### 2 963328, 94166236, 4863619, 3859010, 7255325 ####[facility] [address] [place] [address] CO2 [Moles/Vol] 26 mmol/L Normal 21-31 [facility] Comment on above: Performed By: #### 2 188527, 39382423, 7208161, 6186699, 3858695 ####[facility] [address] [place] [address] Creatinine [Mass/Vol] 0.8 mg/dL Normal 0.5-1.3 [facility] Comment on above: Performed By: #### 2 979981, 61066075, 1219978, 0930495, 5052152 ####[facility] [address] [place] [address] Glucose [Mass/Vol] 154 mg/dL Normal 55-199 [facility] Comment on above: Result Comment: If t his glucose result represents a fasting glucose, interpretation should refer to the following reference range: 55-99 mg/dL Performed By: #### 2 114449, 06796950, 1661806, 8914284, 2998696 ####[facility] [address] [place] [address] Potassium [Moles/Vol] 3.6 mmol/L Normal 3.5-5.3 [facility] Comment on above: Performed By: #### 2 373655, 33881121, 6346703, 8355762, 0654216 ####[facility] [address] [place] [address] Sodium [Moles/Vol] 139 mmol/L Normal 135-145 [facility] Comment on above: Performed By: #### 2 614674, 80234809, 4642437, 5247372, 6283891 ####[facility] [address] [place] [address] Urea nitrogen [Mass/Vol] 30 mg/dL High 5-21 [facility] Comment on above: Performed By: #### 2 710296, 06171818, 8160705, 4008153, 9071737 ####[facility] [address] [place] [address] Urea nitrogen/Creatinin e [Mass ratio] 38 No Units High 10-20 [facility] Comment on above: Performed By: #### 2 083670, 25451998, 7058570, 0530446, 4720547 ####[facility] [address] [place] [address] Blood Gas Art, with Lytes, G jerzy, [place] 11-29-2020 a/A Ratio Art 41.70 % Normal >=0.80 [facility] Comment on above: Performed By: #### 4 41533428 ####[facility] [address] [place] [address] AaDO2 Art 137.9 mmHg High 5.0-15.0 [facility] Comment on above: Performed By: #### 4 88223973 ####[facility] [address] [place] [address] ACT. Rate 16 Invalid Interpretation Code [facility] Comment on above: Performed By: #### 4 33400000 ####[facility] [address] [place] [address] Allens Test Positive Normal [facility] Comment on above: Performed By: #### 4 83231844 ####[facility] [address] [place] [address] Base Excess Arterial 5.9 mmol/L Normal >=2.8 [facility] Comment on above: Performed By: #### 4 92657179 ####[facility] [address] [place] [address] cCa2+ Art 4.42 mg/dL Normal 4.40-5.30 [facility] Comment on above: Performed By: #### 4 71300561 ####[facility] [address] [place] [address] cCl- Art 105.0 mmol/L Normal 101.0-111. 0 [facility] Comment on above: Performed By: #### 4 99158894 ####[facility] [address] [place] [address] cGlu Art 155.0 mg/dL Normal 55.0-199.0 [facility] Comment on above: Performed By: #### 4 10151471 ####[facility] [address] [place] [address] cK+ Art 3.6 mmol/L Normal 3.5-5.3 [facility] Comment on above: Performed By: #### 4 00201016 ####[address] [place] [address] cLac Art 1.0 mmol/L Low 5.0-14.0 [facility] Comment on above: Performed By: #### 4 04557338 ####[address] [address] backbreaker+ Art 140.0 mmol/L Normal 135.0-145. 0 [facility] Comment on above: Performed By: #### 4 25369637 ####[address] [address] Device Ventilator Normal [facility] Comment on above: Performed By: #### 4 09488878 ####[address] [address] Drawn by adm Invalid Interpretation Code [facility] Comment on above: Performed By: #### 4 [id number] ####[address] [address] FCOHb Art 0.6 % Low 1.5-4.9 [facility] Comment on above: Result Comment: Refe rence rangeNonsmoker <1.5%Smoker <5.0%Heavy Smoker <9.0% Performed By: #### 4 00883377 ####[address] [address] FIO2 BG 40.0 Invalid Interpretation Code [facility] Comment on above: Performed By: #### 4 67005376 ####[address] [address] FMetHb Art 0.7 % Normal 0.0-1.9 [facility] Comment on above: Performed By: #### 4 38611905 ####[address] [address] FO2Hb Art 97.1 % Normal 93.0-100.0 [facility] Comment on above: Performed By: #### 4 87615903 ####[address] [address] HCO3 (Bld) [Moles/Vol] 29.8 mmol/L High 22.0-26.0 [facility] Comment on above: Performed By: #### 4 44551121 ####[address] [address] Hemoglobin (Bld) [Mass/Vol] 12.4 g/dL Normal 12.0-17.0 [facility] Comment on above: Performed By: #### 4 74808717 ####[address] [address] MECH. Rate 16 Invalid Interpretation Code [facility] Comment on above: Performed By: #### 4 02374976 ####[address] [address] Oxygen saturation in Blood 98.4 % Normal 95.0-100.0 [facility] Comment on above: Performed By: #### 4 04428968 ####[address] [address] P CO2 Arterial 37.8 mmHg Normal 35.0-45.0 [facility] Comment on above: Performed By: #### 4 44192971 ####[address] [address] P O2 Arterial 98.6 mmHg Normal 80.0-100.0 [facility] Comment on above: Performed By: #### 4 20776958 ####[address] [address] PEEP 5 Invalid Interpretation Code [facility] Comment on above: Performed By: #### 4 01252657 ####[address] [address] pH Arterial 7.499 High 7.350-7.45 0 [facility] Comment on above: Performed By: #### 4 [id number] ####[address] [address] Sample Site R Brachial Normal [facility] Comment on above: Performed By: #### 4 [id number] ####[facility] [address] [place] [address] Sample Type Arterial Draw Normal [facility] Comment on above: Performed By: #### 4 [id number] ####[place] [address]57 SET Vt 500 Invalid Interpretation Code [facility] Comment on above: Performed By: #### 4 [id number] ####[facility] [address] [place] [address] Vent Mode ac Invalid Interpretation Code [facility] Comment on above: Performed By: #### 4 [id number] ####[place] [address]57 CBC w/ Auto Diffon 1 Erythrocyte distribution width (RBC) [Ratio] 14.8 % High 10.9-14.2 [facility] Comment on above: Performed By: #### 2 913101, 64732958, 9207433, 6524716, 0501562 ####[address] [address] Hematocrit (Bld) [Volume fraction] 23.1 % Low 37.7-49.0 [facility] Comment on above: Performed By: #### 2 977759, 36163406, 4215223, 2971039, 8705911 ####[address] [address] Hemoglobin (Bld) [Mass/Vol] 7.9 g/dL Low 13.5-17.5 [facility] Comment on above: Performed By: #### 2 024861, 24237069, 7729473, 5720704, 7722774 ####[place] [address] [place] [address] MCH (RBC) [Entitic mass] 31.0 pg Normal 27.0-34.0 [facility] Comment on above: Performed By: #### 2 520431, 60100519, 8993456, 0940966, 6144195 ####[facility] [address] [place] [address] MCHC (RBC) [Mass/Vol] 34.1 g/dL Normal 31.4-36.0 [facility] Comment on above: Performed By: #### 2 831758, 36882215, 9970633, 1279170, 1852032 ####[facility] [address] [place] [address] MCV (RBC) [Entitic vol] 90.9 fL Normal 80.0-100.0 [facility] Comment on above: Performed By: #### 2 889471, 17072047, 4989241, 2007209, 5854193 ####[address] [address] Platelet mean volume (Bld) [Entitic vol] 7.2 fL Normal 6.4-10.8 [facility] Comment on above: Performed By: #### 2 290922, 30859833, 4673757, 1608327, 6446863 ####[facility] [address] [place] [address] Platelets (Bld) [#/Vol] 108.0 E9/L Low 150.0-500. 0 [facility] Comment on above: Performed By: #### 2 710343, 23226354, 5027616, 2523247, 7574462 ####[address] [address] RBC (Bld) [#/Vol] 2.5 E12/L Low 4.3-5.9 [facility] Comment on above: Performed By: #### 2 272133, 89524303, 7234006, 4533462, 7229383 ####[facility] [address] [place] [address] WBC corrected for nucl RBC Auto (Bld) [#/Vol] 6.7 E9/L Normal 4.0-11.0 [facility] Comment on above: Performed By: #### 2 599827, 54364816, 2930996, 4015669, 3423997 ####[place] [place] [address] Capillary Glucose POCon Glucose [Mass/Vol] 125 mg/dL High 55-[address] [place] [address] Comment on above: Result Comment: Nella jose Meter Performed By: #### 2 43225993 ####[facility] [address] [place] [address] Glucose [Mass/Vol] 143 mg/dL High 55- [facility] Comment on above: Result Comment: Nella jose Meter Performed By: #### 2 20014587 ####[facility] [address] [place] [address] Glucose [Mass/Vol] 133 mg/dL High 55[address] [place] [address] Comment on above: Result Comment: Nella jose Meter Performed By: #### 2 09094871 ####[facility] [address] [place] [address] Glucose [Mass/Vol] 149 mg/dL High 55-[address] [place] [address] Comment on above: Result Comment: Javier childress RN/ Performed By: #### 2 19224662 ####[facility] [address] [place] [address] Insurance Correspondenceon 0 11-29-2020 Insurance Correspondence [id number]#[id number]:127 [facility] Interdisciplinary Note - Sonido e Manageron 11-29-2020 Interdisciplinary Note - Marine Services Technician Pt is sedated on vent, no family present. contact information provided and white board updated. CRM following for needs. [facility] Comment on above: Result Comment: Elec tronically Signed By: Vilma BURNHAM, Francine\.whitney\Date and Time Signed: 11/29/20 10:24 EDT Monitor Recordon 11-29-2020 Monitor Record [id number]#1.00CD:127 [facility] Monitor Record [id number]#1.00CD:127 [facility] Monitor Record [id number]#1.00CD:127 Normal [facility] Monitor Record [id number]#1.00CD:127 Normal [facility] Progress Note - Pharmacyon 0 11-29-2020 Progress Note - Pharmacy Normal [facility] Triglycerideson 11-29-2020 Triglyceride [Mass/Vol] 157 mg/dL High <=149 [facility] Comment on above: Order Comment: Recom mended if patient on propofol > 72 hours. Performed By: #### 2 548099, 55673626, 2670544, 2737890, 6306896 ####[facility] [address] [place] [address] XR Chest Single Viewon 11-29 XR Chest Single View Normal [facility] eGFRon 11-29-2020 GFR/1.73 sq M.predicted among blacks MDRD (S/P/Bld) [Vol rate/Area] mL/min/{1.73_m2} Normal >=59 [facility] Comment on above: Order Comment: Order added by Discern Expert. Result Comment: eGFR is race adjusted. AA=. Performed By: #### 2 216706, 35433894, 4963220, 0296272, 3147170 ####[facility] [address] [place] [address] GFR/1.73 sq M.predicted among non-blacks MDRD (S/P/Bld) [Vol rate/Area] mL/min/{1.73_m2} Normal >=59 [facility] Comment on above: Order Comment: Order added by Discern Expert. Result Comment: 3 Year Olds Preschool Teacher nik kidney disease could be indicated at eGFR's of less than 60 mL/min/1.73m2. Kidney failure is indicated at less than 15 mL/min/1.73m2. Performed By: #### 2 557358, 74871163, 5647218, 0478069, 5964599 ####[facility] [address] [place] [address] Auto Diffon 11-28-2020 Basophils/100 WBC (Bld) 0.1 % Normal 0.0-2.0 [facility] Comment on above: Order Comment: Order Added by Discern Expert. Performed By: #### 2 316157, 2085960, 2760235, 9752837, 13615945 ####[address] [address] Basophils/Leukocyt es Auto (Bld) [Pure # fraction] 0.0 E9/L Normal 0.0-0.2 [facility] Comment on above: Order Comment: Order Added by Discern Expert. Performed By: #### 2 553587, 8208487, 9840868, 4528165, 67227532 ####[address] [address] Eosinophils/100 WBC (Bld) 0.0 % Normal 0.0-8.0 [facility] Comment on above: Order Comment: Order Added by Discern Expert. Performed By: #### 2 684238, 5456345, 3564264, 2440373, 04189365 ####[address] [address] Eosinophils/Leukoc ytes Auto (Bld) [Pure # fraction] 0.0 E9/L Normal 0.0-0.5 [facility] Comment on above: Order Comment: Order Added by Discern Expert. Performed By: #### 2 925700, 0516391, 7277902, 1402826, 16776409 ####[address] [address] Lymphocytes/100 WBC (Bld) 8.7 % Low 14.0-50.0 [facility] Comment on above: Order Comment: Order Added by Discern Expert. Performed By: #### 2 752338, 9439965, 3116513, 0321485, 37983076 ####[address] [address] Lymphocytes/Leukoc ytes Auto (Bld) [Pure # fraction] 0.5 E9/L Low 1.0-4.0 [facility] Comment on above: Order Comment: Order Added by Discern Expert. Performed By: #### 2 317084, 8341977, 4641560, 4620563, 55449642 ####[facility] [address] [place] [address] Monocytes/100 WBC (Bld) 12.4 % Normal 4.0-14.0 [facility] Comment on above: Order Comment: Order Added by Discern Expert. Performed By: #### 2 624419, 8012112, 7400589, 3180229, 87835089 ####[place] [place] [address] Monocytes/Leukocyt es Auto (Bld) [Pure # fraction] 0.7 E9/L Normal 0.2-1.0 [facility] Comment on above: Order Comment: Order Added by Nic Expert. Performed By: #### 2 837852, 4893250, 8139571, 6350044, 14396737 ####[place] [place] [address] Neutrophils/100 WBC (Bld) 78.8 % High 36.0-75.0 [facility] Comment on above: Order Comment: Order Added by Nic Expert. Performed By: #### 2 994307, 4026849, 6715674, 5889832, 64276030 ####[place] [address] [place] [address] Neutrophils/Leukoc ytes Auto (Bld) [Pure # fraction] 4.6 E9/L Normal 2.0-7.5 [facility] Comment on above: Order Comment: Order Added by Nic Expert. Performed By: #### 2 567742, 1117684, 2923174, 5468509, 95788135 ####[facility] [address] [place] [address] BMPon 11-28-2020 Anion gap [Moles/Vol] 12 mmol/L Normal 6-16 [facility] Comment on above: Performed By: #### 2 521163, 9341270, 0790194, 2110937, 61321201 ####[facility] [address] [place] [address] Calcium [Mass/Vol] 7.7 mg/dL Low 8.9-11.1 [facility] Comment on above: Performed By: #### 2 686415, 5900235, 2381978, 4512066, 15703197 ####[facility] [address] [place] [address] Chloride [Moles/Vol] 106 mmol/L Normal 101-111 [facility] Comment on above: Performed By: #### 2 033437, 9730466, 3958058, 8133427, 65283503 ####[facility] [address] [place] [address] CO2 [Moles/Vol] 25 mmol/L Normal 21-31 [facility] Comment on above: Performed By: #### 2 105847, 7297949, 6778370, 5718099, 36094522 ####[facility] [address] [place] [address] Creatinine [Mass/Vol] 0.9 mg/dL Normal 0.5-1.3 [facility] Comment on above: Performed By: #### 2 331280, 0013218, 8026717, 5033087, 04137247 ####[facility] [address] [place] [address] Glucose [Mass/Vol] 184 mg/dL Normal 55-199 [facility] Comment on above: Result Comment: If t his glucose result represents a fasting glucose, interpretation should refer to the following reference range: 55-99 mg/dL Performed By: #### 2 775221, 5490789, 7000053, 5582156, 13163818 ####[facility] [address] [place] [address] Potassium [Moles/Vol] 4.2 mmol/L Normal 3.5-5.3 [facility] Comment on above: Performed By: #### 2 925073, 1619874, 3740115, 1038417, 55415033 ####[facility] [address] [place] [address] Sodium [Moles/Vol] 139 mmol/L Normal 135-145 [facility] Comment on above: Performed By: #### 2 504729, 8730921, 5133527, 7972798, 32926754 ####[facility] [address] [place] [address] Urea nitrogen [Mass/Vol] 36 mg/dL High 5-21 [facility] Comment on above: Performed By: #### 2 214617, 2631273, 2069595, 5238126, 33818144 ####[facility] [address] [place] [address] Urea nitrogen/Creatinin e [Mass ratio] 40 No Units High 10-20 [facility] Comment on above: Performed By: #### 2 674947, 4796253, 9197045, 6222370, 31920259 ####[facility] [address] [place] [address] Blood Gas Art, with Lytes, G jerzy, [place] 11-28-2020 a/A Ratio Art 21.80 % Normal >=0.80 [facility] Comment on above: Performed By: #### 4 44537475 ####[facility] [address] [place] [address] AaDO2 Art 291.2 mmHg High 5.0-15.0 [facility] Comment on above: Performed By: #### 4 34970355 ####[facility] [address] [place] [address] ACT. Rate 16 Invalid Interpretation Code [facility] Comment on above: Performed By: #### 4 05108924 ####[facility] [address] [place] [address] Allens Test Positive Normal [facility] Comment on above: Performed By: #### 4 06416032 ####[facility] [address] [place] [address] Base Excess Arterial 2.5 mmol/L Low >=2.8 [facility] Comment on above: Performed By: #### 4 79775145 ####[facility] [address] [place] [address] cCa2+ Art 4.44 mg/dL Normal 4.40-5.30 [facility] Comment on above: Performed By: #### 4 73380892 ####[facility] [address] [place] [address] cCl- Art 108.0 mmol/L Normal 101.0-111. 0 [facility] Comment on above: Performed By: #### 4 58738735 ####[facility] [address] [place] [address] cGlu Art 173.0 mg/dL Normal 55.0-199.0 [facility] Comment on above: Performed By: #### 4 22178554 ####[facility] [address] [place] [address] cK+ Art 4.1 mmol/L Normal 3.5-5.3 [facility] Comment on above: Performed By: #### 4 54902081 ####[facility] [address] [place] [address] cLac Art 1.4 mmol/L Low 5.0-14.0 [facility] Comment on above: Performed By: #### 4 24490640 ####[facility] [address] [place] [address] backbreaker+ Art 140.0 mmol/L Normal 135.0-145. 0 [facility] Comment on above: Performed By: #### 4 72040253 ####[facility] [address] [place] [address] Device Ventilator Normal [facility] Comment on above: Performed By: #### 4 68461697 ####[facility] [address] [place] [address] Drawn by HIP Invalid Interpretation Code [facility] Comment on above: Performed By: #### 4 77981999 ####[facility] [address] [place] [address] FCOHb Art 0.5 % Low 1.5-4.9 [facility] Comment on above: Result Comment: Refe rence rangeNonsmoker <1.5%Smoker <5.0%Heavy Smoker <9.0% Performed By: #### 4 18349906 ####[facility] [address] [place] [address] FIO2 BG 60.0 Invalid Interpretation Code [facility] Comment on above: Performed By: #### 4 87022520 ####[facility] [address] [place] [address] FMetHb Art 0.8 % Normal 0.0-1.9 [facility] Comment on above: Performed By: #### 4 85255845 ####[place] [place] [address] FO2Hb Art 95.2 % Normal 93.0-100.0 [facility] Comment on above: Performed By: #### 4 18672176 ####[facility] [address] [place] [address] HCO3 (Bld) [Moles/Vol] 26.6 mmol/L High 22.0-26.0 [facility] Comment on above: Performed By: #### 4 87730502 ####[facility] [address] [place] [address] Hemoglobin (Bld) [Mass/Vol] 13.8 g/dL Normal 12.0-17.0 [facility] Comment on above: Performed By: #### 4 94861079 ####[facility] [address] [place] [address] MECH. Rate 16 Invalid Interpretation Code [facility] Comment on above: Performed By: #### 4 33388324 ####[facility] [address] [place] [address] Oxygen saturation in Blood 96.4 % Normal 95.0-100.0 [facility] Comment on above: Performed By: #### 4 12535305 ####[facility] [address] [place] [address] P CO2 Arterial 41.4 mmHg Normal 35.0-45.0 [facility] Comment on above: Performed By: #### 4 43179269 ####[address] [address] P O2 Arterial 81.3 mmHg Normal 80.0-100.0 [facility] Comment on above: Performed By: #### 4 20329586 ####[address] [place] [address] PEEP 10 Invalid Interpretation Code [facility] Comment on above: Performed By: #### 4 58902235 ####[address] [address] pH Arterial 7.426 Normal 7.350-7.45 0 [facility] Comment on above: Performed By: #### 4 06973041 ####[address] [address] Sample Site R Radial Normal [facility] Comment on above: Performed By: #### 4 09250480 ####[address] [address] Sample Type Arterial Draw Normal [facility] Comment on above: Performed By: #### 4 30466929 ####[address] [address] SET Vt 500 Invalid Interpretation Code [facility] Comment on above: Performed By: #### 4 17475209 ####[address] [address] Vent Mode AC Invalid Interpretation Code [facility] Comment on above: Performed By: #### 4 62651659 ####[address] [address] CBC w/ Auto Diffon 1 Erythrocyte distribution width (RBC) [Ratio] 14.8 % High 10.9-14.2 [facility] Comment on above: Performed By: #### 2 356317, 8088084, 8642646, 2960217, 93412420 ####[place] [address] [place] [address] Hematocrit (Bld) [Volume fraction] 24.9 % Low 37.7-49.0 [facility] Comment on above: Performed By: #### 2 673723, 2104035, 3203022, 0520430, 35128751 ####[place] [address] Hemoglobin (Bld) [Mass/Vol] 8.5 g/dL Low 13.5-17.5 [facility] Comment on above: Performed By: #### 2 607717, 2038280, 5048352, 8857853, 78240019 ####[place] [address] MCH (RBC) [Entitic mass] 31.2 pg Normal 27.0-34.0 [facility] Comment on above: Performed By: #### 2 162486, 9478153, 2441477, 2454852, 73904213 ####[place] [address] MCHC (RBC) [Mass/Vol] 34.0 g/dL Normal 31.4-36.0 [facility] Comment on above: Performed By: #### 2 346214, 8744279, 7618993, 1388144, 47711711 ####[place] [address] MCV (RBC) [Entitic vol] 91.9 fL Normal 80.0-100.0 [facility] Comment on above: Performed By: #### 2 642377, 4662448, 7653480, 6354046, 15646390 ####[address] [address] Platelet mean volume (Bld) [Entitic vol] 7.8 fL Normal 6.4-10.8 [facility] Comment on above: Performed By: #### 2 751831, 3741656, 7639140, 6063843, 51998833 ####[facility] [address] [place] [address] Platelets (Bld) [#/Vol] 103.0 E9/L Low 150.0-500. 0 [facility] Comment on above: Performed By: #### 2 510584, 6736069, 6726825, 6201059, 98511969 ####[facility] [address] [place] [address] RBC (Bld) [#/Vol] 2.7 E12/L Low 4.3-5.9 [facility] Comment on above: Performed By: #### 2 890848, 0008923, 9418117, 9037040, 45030615 ####[facility] [address] [place] [address] WBC corrected for nucl RBC Auto (Bld) [#/Vol] 5.9 E9/L Normal 4.0-11.0 [facility] Comment on above: Performed By: #### 2 792668, 8301684, 6044196, 2320515, 61819723 ####[facility] [address] [place] [address] Capillary Glucose POCon 06-0 Glucose [Mass/Vol] 137 mg/dL High 55-99 [facility] Comment on above: Result Comment: Javier WEBB Performed By: #### 2 58542010 ####[facility] [address] [place] [address] Glucose [Mass/Vol] 153 mg/dL High 55-99 [facility] Comment on above: Result Comment: Run Lab Confirmation Performed By: #### 2 72009281 ####[address] [place] [address] Glucose [Mass/Vol] 167 mg/dL High 55-99 [facility] Comment on above: Result Comment: Javier childress RN/ Performed By: #### 2 82872534 ####[facility] [address] [place] [address] Glucose [Mass/Vol] 171 mg/dL High 55-99 [facility] Comment on above: Result Comment: Javier childress RN/ Performed By: #### 2 75005508 ####[facility] [address] [place] [address] Interdisciplinary Note - Sonido e Manageron 11-28-2020 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 Contact information provided and white board updated. CRM following for needs. Normal [facility] Comment on above: Result Comment: Elec tronically Signed By: Vilma BURNHAM, Francine\.br\Date and Time Signed: 11/28/20 09:49 EDT Interdisciplinary Note - Boy n 11-28-2020 Interdisciplinary Note - OT [facility] Interdisciplinary Note - PTo n 11-28-2020 Interdisciplinary Note - PT [facility] IntraOperative Documentson 0 11-28-2020 IntraOperative Documents [id number]#1.00CD:127 Normal [facility] Magnesiumon 11-28-2020 Magnesium [Mass/Vol] 2.1 mg/dL Normal 1.3-2.4 [facility] Comment on above: Performed By: #### 2 946771, 6571165, 3396260, 5186256, 14666799 ####[facility] [address] [place] [address] Monitor Recordon 11-28-2020 Monitor Record [id number]#1.00CD:127 Normal [facility] Monitor Record [id number]#1.00CD:127 Normal [facility] Monitor Record [id number]#1.00CD:127 Normal [facility] Monitor Record [id number]#1.00CD:127 Normal [facility] Monitor Record [id number]#1.00CD:127 Normal [facility] Progress Note - Pharmacyon 0 11-28-2020 Progress Note - Pharmacy Normal [facility] XR Chest Single Viewon 11-28 XR Chest Single View Normal [facility] eGFRon 11-28-2020 GFR/1.73 sq M.predicted among blacks MDRD (S/P/Bld) [Vol rate/Area] mL/min/{1.73_m2} Normal >=59 [facility] Comment on above: Order Comment: Order added by Discern Expert. Result Comment: eGFR is race adjusted. AA=. Performed By: #### 2 813542, 4666695, 7836695, 6670567, 82324560 ####[facility] [address] [place] [address] GFR/1.73 sq M.predicted among non-blacks MDRD (S/P/Bld) [Vol rate/Area] mL/min/{1.73_m2} Normal >=59 [facility] Comment on above: Order Comment: Order added by Discern Expert. Result Comment: 3 Year Olds Preschool Teacher nik kidney disease could be indicated at eGFR's of less than 60 mL/min/1.73m2. Kidney failure is indicated at less than 15 mL/min/1.73m2. Performed By: #### 2 548781, 9730015, 6126379, 1442105, 92105922 ####[facility] [address] [place] [address] Auto Diffon 11-27-2020 Basophils/100 WBC (Bld) 0.2 % Normal 0.0-2.0 [facility] Comment on above: Order Comment: Order Added by Discern Expert. Performed By: #### 2 021097, 3846405, 3102974, 0297694, 63219575 ####[facility] [address] [place] [address] Basophils/Leukocyt es Auto (Bld) [Pure # fraction] 0.0 E9/L Normal 0.0-0.2 [facility] Comment on above: Order Comment: Order Added by Discern Expert. Performed By: #### 2 992208, 4858307, 6306818, 3837024, 50226124 ####[address] [place] [address] Eosinophils/100 WBC (Bld) 0.0 % Normal 0.0-8.0 [facility] Comment on above: Order Comment: Order Added by Discern Expert. Performed By: #### 2 701008, 8230090, 1441383, 9668322, 35307070 ####[address] [place] [address] Eosinophils/Leukoc ytes Auto (Bld) [Pure # fraction] 0.0 E9/L Normal 0.0-0.5 [facility] Comment on above: Order Comment: Order Added by Discern Expert. Performed By: #### 2 229375, 4618675, 5300226, 5812185, 38924004 ####[address] [address] Lymphocytes/100 WBC (Bld) 6.6 % Low 14.0-50.0 [facility] Comment on above: Order Comment: Order Added by Discern Expert. Performed By: #### 2 633089, 6942188, 1675129, 6320025, 92885001 ####[address] [address] Lymphocytes/Leukoc ytes Auto (Bld) [Pure # fraction] 0.6 E9/L Low 1.0-4.0 [facility] Comment on above: Order Comment: Order Added by Discern Expert. Performed By: #### 2 420916, 1075756, 3339242, 9344600, 12083459 ####[address] [address] Monocytes/100 WBC (Bld) 8.7 % Normal 4.0-14.0 [facility] Comment on above: Order Comment: Order Added by Discern Expert. Performed By: #### 2 319810, 8075614, 9794251, 8013156, 85204985 ####[address] [place] [address] Monocytes/Leukocyt es Auto (Bld) [Pure # fraction] 0.7 E9/L Normal 0.2-1.0 [facility] Comment on above: Order Comment: Order Added by Discern Expert. Performed By: #### 2 385579, 7274880, 3997633, 5267486, 98225562 ####[address] [place] [address] Neutrophils/100 WBC (Bld) 84.5 % High 36.0-75.0 [facility] Comment on above: Order Comment: Order Added by Discern Expert. Performed By: #### 2 727681, 0506049, 3490579, 1314176, 54897613 ####[address] [place] [address] Neutrophils/Leukoc ytes Auto (Bld) [Pure # fraction] 7.1 E9/L Normal 2.0-7.5 [facility] Comment on above: Order Comment: Order Added by Discern Expert. Performed By: #### 2 081237, 1065439, 5645239, 5323018, 62235071 ####[address] [place] [address] BMPon 11-27-2020 Anion gap [Moles/Vol] 11 mmol/L Normal 6-16 [facility] Comment on above: Performed By: #### 2 040543, 7877892, 2589232, 2855114, 15363488 ####[address] [place] [address] Calcium [Mass/Vol] 7.7 mg/dL Low 8.9-11.1 [facility] Comment on above: Performed By: #### 2 286712, 3069857, 2574948, 0327689, 97592101 ####[address] [place] [address] Chloride [Moles/Vol] 108 mmol/L Normal 101-111 [facility] Comment on above: Performed By: #### 2 273201, 8439729, 5116905, 5180471, 57806765 ####[facility] [address] [place] [address] CO2 [Moles/Vol] 25 mmol/L Normal 21-31 [facility] Comment on above: Performed By: #### 2 285284, 0154204, 1527908, 7463889, 50387819 ####[facility] [address] [place] [address] Creatinine [Mass/Vol] 1.1 mg/dL Normal 0.5-1.3 [facility] Comment on above: Performed By: #### 2 433190, 5828147, 6131506, 7801213, 49868361 ####[facility] [address] [place] [address] Glucose [Mass/Vol] 189 mg/dL Normal 55-199 [facility] Comment on above: Result Comment: If t his glucose result represents a fasting glucose, interpretation should refer to the following reference range: 55-99 mg/dL Performed By: #### 2 423093, 7315782, 9215279, 2338670, 12023995 ####[facility] [address] [place] [address] Potassium [Moles/Vol] 4.7 mmol/L Normal 3.5-5.3 [facility] Comment on above: Performed By: #### 2 944273, 4796743, 0755512, 9804890, 59669359 ####[facility] [address] [place] [address] Sodium [Moles/Vol] 139 mmol/L Normal 135-145 [facility] Comment on above: Performed By: #### 2 080744, 8432280, 8863804, 7357732, 02434501 ####[facility] [address] [place] [address] Urea nitrogen [Mass/Vol] 33 mg/dL High 5-21 [facility] Comment on above: Performed By: #### 2 477411, 5262203, 5968553, 7552145, 23225752 ####[facility] [address] [place] [address] Urea nitrogen/Creatinin e [Mass ratio] 30 No Units High 10-20 [facility] Comment on above: Performed By: #### 2 550280, 9882134, 6917469, 5090357, 93351708 ####[facility] [address] [place] [address] Blood Bank Slipon 11-27-2020 Blood Bank Slip [id number]#1.00CD:127 Normal [facility] Blood Gas Art, with Lytes, G jerzy, [place] 11-27-2020 ACT. Rate 16 Invalid Interpretation Code [facility] Comment on above: Performed By: #### 4 [id number] ####[facility] Mvhclxro[address] [address] Allens Test Positive Normal [facility] Comment on above: Performed By: #### 4 [id number] ####[facility] [address] [place] [address] Device Ventilator Normal [facility] Comment on above: Performed By: #### 4 [id number] ####[facility] [address] [place] [address] Drawn by ADM Invalid Interpretation Code [facility] Comment on above: Performed By: #### 4 [id number] ####[facility] [address] [place] [address] [facility]. Rate 16 Invalid Interpretation Code [facility] Comment on above: Performed By: #### 4 13056180 ####[facility] [address] [place] [address] PEEP 10 Invalid Interpretation Code [facility] Comment on above: Performed By: #### 4 [id number] ####[facility] [address] [place] [address] Sample Site R Radial Normal [facility] Comment on above: Performed By: #### 4 [id number] ####[facility] [address] [place] [address] Sample Type Arterial Draw Normal [facility] Comment on above: Performed By: #### 4 [id number] ####[facility] [address] [place] [address] SET Vt 500 Invalid Interpretation Code [facility] Comment on above: Performed By: #### 4 [id number] ####[address] [place] [address] Vent Mode AC Invalid Interpretation Code [facility] Comment on above: Performed By: #### 4 [id number] ####[address] [place] [address] a/A Ratio Art 18.50 % Normal >=0.80 [facility] Comment on above: Performed By: #### 4 [id number] ####[address] [address] AaDO2 Art 446.8 mmHg High 5.0-15.0 [facility] Comment on above: Performed By: #### 4 44909144 ####[address] [place] [address] Base Excess Arterial 1.3 mmol/L Low >=2.8 [facility] Comment on above: Performed By: #### 4 30013253 ####[address] [address] cCa2+ Art 4.59 mg/dL Normal 4.40-5.30 [facility] Comment on above: Performed By: #### 4 [id number] ####[facility] [address] [place] [address] cCl- Art 107.0 mmol/L Normal 101.0-111. 0 [facility] Comment on above: Performed By: #### 4 70391455 ####[address] [place] [address] cGlu Art 177.0 mg/dL Normal 55.0-199.0 [facility] Comment on above: Performed By: #### 4 72703186 ####[facility] [address] [place] [address] cK+ Art 4.4 mmol/L Normal 3.5-5.3 [facility] Comment on above: Performed By: #### 4 48312321 ####[facility] [address] [place] [address] cLac Art 1.1 mmol/L Low 5.0-14.0 [facility] Comment on above: Performed By: #### 4 79300720 ####[facility] [address] [place] [address] backbreaker+ Art 137.0 mmol/L Normal 135.0-145. 0 [facility] Comment on above: Performed By: #### 4 27493173 ####[facility] [address] [place] [address] FCOHb Art <0.5 Low 1.5-4.9 [facility] Comment on above: Result Comment: Refe rence rangeNonsmoker <1.5%Smoker <5.0%Heavy Smoker <9.0% Performed By: #### 4 07128900 ####[facility] [address] [place] [address] FIO2 BG 85.0 Invalid Interpretation Code [facility] Comment on above: Performed By: #### 4 43964796 ####[facility] [address] [place] [address] FMetHb Art 1.1 % Normal 0.0-1.9 [facility] Comment on above: Performed By: #### 4 62470373 ####[facility] [address] [place] [address] FO2Hb Art 96.7 % Normal 93.0-100.0 [facility] Comment on above: Performed By: #### 4 81186980 ####[facility] [address] [place] [address] HCO3 (Bld) [Moles/Vol] 25.6 mmol/L Normal 22.0-26.0 [facility] Comment on above: Performed By: #### 4 74586364 ####[facility] [address] [place] [address] Hemoglobin (Bld) [Mass/Vol] 9.7 g/dL Low 12.0-17.0 [facility] Comment on above: Performed By: #### 4 78656613 ####[address] [place] [address] Oxygen saturation in Blood 98.3 % Normal 95.0-100.0 [facility] Comment on above: Performed By: #### 4 47270202 ####[address] [address] P CO2 Arterial 40.4 mmHg Normal 35.0-45.0 [facility] Comment on above: Performed By: #### 4 28267654 ####[address] [address] P O2 Arterial 101.0 mmHg High 80.0-100.0 [facility] Comment on above: Performed By: #### 4 32999808 ####[address] [address] pH Arterial 7.416 Normal 7.350-7.45 0 [facility] Comment on above: Performed By: #### 4 89285664 ####[address] [place] [address] CBC w/ Auto Diffon 1 Erythrocyte distribution width (RBC) [Ratio] 14.9 % High 10.9-14.2 [facility] Comment on above: Performed By: #### 2 942761, 2464345, 0727564, 4175066, 39463382 ####[facility] [address] [place] [address] Hematocrit (Bld) [Volume fraction] 27.1 % Low 37.7-49.0 [facility] Comment on above: Performed By: #### 2 410256, 3155709, 2800834, 1517899, 85040514 ####[facility] [address] [place] [address] Hemoglobin (Bld) [Mass/Vol] 9.2 g/dL Low 13.5-17.5 [facility] Comment on above: Performed By: #### 2 228964, 1490727, 8142797, 8275677, 87613949 ####[address] [address] MCH (RBC) [Entitic mass] 31.4 pg Normal 27.0-34.0 [facility] Comment on above: Performed By: #### 2 209940, 6647708, 9636456, 9897280, 67586892 ####[address] [address] MCHC (RBC) [Mass/Vol] 34.0 g/dL Normal 31.4-36.0 [facility] Comment on above: Performed By: #### 2 219947, 9149902, 8028808, 6031681, 55195459 ####[address] [address] MCV (RBC) [Entitic vol] 92.2 fL Normal 80.0-100.0 [facility] Comment on above: Performed By: #### 2 402507, 0124450, 3374013, 0841191, 97817433 ####[address] [address] Platelet mean volume (Bld) [Entitic vol] 7.9 fL Normal 6.4-10.8 [facility] Comment on above: Performed By: #### 2 196156, 5061584, 2788290, 8389483, 99861316 ####[address] [address] Platelets (Bld) [#/Vol] 94.0 E9/L Low 150.0-500. 0 [facility] Comment on above: Performed By: #### 2 245148, 1855071, 9837225, 1973053, 60617769 ####[facility] [place] [address] RBC (Bld) [#/Vol] 2.9 E12/L Low 4.3-5.9 [facility] Comment on above: Performed By: #### 2 011139, 2029316, 4114766, 9941882, 27876141 ####[facility] [address] [place] [address] WBC corrected for nucl RBC Auto (Bld) [#/Vol] 8.4 E9/L Normal 4.0-11.0 [facility] Comment on above: Performed By: #### 2 370987, 6355559, 1477015, 6937327, 65165700 ####[facility] [address] [place] [address] Capillary Glucose POCon Glucose [Mass/Vol] 164 mg/dL High 55-99 [facility] Comment on above: Result Comment: Nella jose Meter Performed By: #### 2 93575181 ####[address] [address] Glucose [Mass/Vol] 150 mg/dL High 55-99 [facility] Comment on above: Result Comment: Nella jose Meter Performed By: #### 2 87303753 ####[facility] [address] [place] [address] Glucose [Mass/Vol] 162 mg/dL High 55-99 [facility] Comment on above: Result Comment: Nella jose Meter Performed By: #### 2 02112486 ####[facility] [address] [place] [address] Glucose [Mass/Vol] 204 mg/dL High 55-99 [facility] Comment on above: Result Comment: Nella jose Meter Performed By: #### 2 68495635 ####[facility] [address] [place] [address] Consent for Anesthesiaon Consent for Anesthesia [id number]#1.00CD:127 [facility] Consent for Anesthesia [id number]#1.00CD:127 [facility] Consent for Procedure/Surger yon 11-27-2020 Consent for Procedure/Surgery [id number]#1.00CD:127 [facility] ED Traumaon 11-27-2020 ED Trauma [id number]#1.00CD:127 [facility] Echo Transthoracic Completeo n 11-27-2020 Echo Transthoracic Complete [facility] Interdisciplinary Note - Sonido e Manageron 11-27-2020 Interdisciplinary Note - Marine Services Technician [facility] Comment on above: Result Comment: Elec tronically Signed By: Kirby BURNHAM, Chanelle Up\.br\Date and Time Signed: 11/27/20 14:31 EDT IntraOperative Documentson 0 11-27-2020 IntraOperative Documents [id number]#1.00CD:127 [facility] IntraOperative Documents [id number]#1.00CD:127 [facility] Monitor Recordon 11-27-2020 Monitor Record [id number]#1.00CD:127 [facility] Monitor Record [id number]#1.00CD:127 [facility] Monitor Record [id number]#1.00CD:127 [facility] Operative Reporton Operative Report [facility] Comment on above: Result Comment: Elec tronically Signed By: Farrah NARAYANAN, Elba Nguyen.whitney\Date and Time Signed: 11/27/20 06:00 EDT Operative Report [facility] Comment on above: Result Comment: Elec tronically Signed By: Farrah NARAYANAN, Elba Beck\.br\Date and Time Signed: 11/27/20 05:39 EDT Progress Note - Pharmacyon 0 11-27-2020 Progress Note - Pharmacy Normal [facility] Progress Note-Physicianon Progress Note-Physician Normal [facility] Comment on above: Result Comment: Elec tronically Signed By: Tara NARAYANAN, Katie X\.br\Date and Time Signed: 11/27/20 09:15 EDT Progress Note-Physician Normal [facility] Comment on above: Result Comment: Elec tronically Signed By: Farrah NARAYANAN, Elba Beck\.br\Date and Time Signed: 11/27/20 05:01 EDT Triglycerideson 11-27-2020 Triglyceride [Mass/Vol] 86 mg/dL Normal <=149 [facility] Comment on above: Order Comment: Recom mended if patient on propofol > 72 hours. Performed By: #### 2 722131, 4927623, 5665136, 2036746, 19383636 ####[facility] [address] [place] [address] XR Chest Single Viewon 11-27 XR Chest Single View Normal [facility] XR Chest Single View Normal [facility] eGFRon 11-27-2020 GFR/1.73 sq M.predicted among blacks MDRD (S/P/Bld) [Vol rate/Area] mL/min/{1.73_m2} Normal >=59 [facility] Comment on above: Order Comment: Order added by Discern Expert. Result Comment: eGFR is race adjusted. AA=. Performed By: #### 2 912903, 7334883, 1708441, 8185294, 65124399 ####[facility] [address] [place] [address] GFR/1.73 sq M.predicted among non-blacks MDRD (S/P/Bld) [Vol rate/Area] mL/min/{1.73_m2} Normal >=59 [facility] Comment on above: Order Comment: Order added by Discern Expert. Result Comment: 3 Year Olds Preschool Teacher nik kidney disease could be indicated at eGFR's of less than 60 mL/min/1.73m2. Kidney failure is indicated at less than 15 mL/min/1.73m2. Performed By: #### 2 170722, 3190723, 7658100, 0036898, 05910861 ####[address] [address] Auto Diffon 11-26-2020 Basophils/100 WBC (Bld) 0.1 % Normal 0.0-2.0 [facility] Comment on above: Order Comment: Order Added by Discern Expert. Performed By: #### 2 398689, 9863863 ####[address] [address] Basophils/Leukocyt es Auto (Bld) [Pure # fraction] 0.0 E9/L Normal 0.0-0.2 [facility] Comment on above: Order Comment: Order Added by Discern Expert. Performed By: #### 2 408446, 0723732 ####[address] [address] Eosinophils/100 WBC (Bld) 0.0 % Normal 0.0-8.0 [facility] Comment on above: Order Comment: Order Added by Discern Expert. Performed By: #### 2 968385, 2614647 ####[address] [address] Eosinophils/Leukoc ytes Auto (Bld) [Pure # fraction] 0.0 E9/L Normal 0.0-0.5 [facility] Comment on above: Order Comment: Order Added by Discern Expert. Performed By: #### 2 232660, 3552308 ####[address] [address] Lymphocytes/100 WBC (Bld) 4.4 % Low 14.0-50.0 [facility] Comment on above: Order Comment: Order Added by Discern Expert. Performed By: #### 2 374002, 9234075 ####[address] [address] Lymphocytes/Leukoc ytes Auto (Bld) [Pure # fraction] 0.5 E9/L Low 1.0-4.0 [facility] Comment on above: Order Comment: Order Added by Discern Expert. Performed By: #### 2 796922, 3086743 ####[facility] [address] [place] [address] Monocytes/100 WBC (Bld) 7.6 % Normal 4.0-14.0 [facility] Comment on above: Order Comment: Order Added by Discern Expert. Performed By: #### 2 105956, 1237610 ####[address] [address] Monocytes/Leukocyt es Auto (Bld) [Pure # fraction] 0.9 E9/L Normal 0.2-1.0 [facility] Comment on above: Order Comment: Order Added by Discern Expert. Performed By: #### 2 654691, 1127926 ####[address] [address] Neutrophils/100 WBC (Bld) 87.9 % High 36.0-75.0 [facility] Comment on above: Order Comment: Order Added by Discern Expert. Performed By: #### 2 794571, 9031274 ####[address] [address] Neutrophils/Leukoc ytes Auto (Bld) [Pure # fraction] 10.5 E9/L High 2.0-7.5 [facility] Comment on above: Order Comment: Order Added by Discern Expert. Performed By: #### 2 784601, 2733157 ####[address] [address] Basophils/100 WBC (Bld) 0.2 % Normal 0.0-2.0 [facility] Comment on above: Order Comment: Order Added by Discern Expert. Performed By: #### 2 434137, 9435893 ####[address] [address] Basophils/Leukocyt es Auto (Bld) [Pure # fraction] 0.0 E9/L Normal 0.0-0.2 [facility] Comment on above: Order Comment: Order Added by Discern Expert. Performed By: #### 2 540620, 0908610 ####[facility] [address] [place] [address] Eosinophils/100 WBC (Bld) 0.0 % Normal 0.0-8.0 [facility] Comment on above: Order Comment: Order Added by Discern Expert. Performed By: #### 2 370464, 1201785 ####[address] [address] Eosinophils/Leukoc ytes Auto (Bld) [Pure # fraction] 0.0 E9/L Normal 0.0-0.5 [facility] Comment on above: Order Comment: Order Added by Discern Expert. Performed By: #### 2 900259, 3564061 ####[address] [address] Lymphocytes/100 WBC (Bld) 6.5 % Low 14.0-50.0 [facility] Comment on above: Order Comment: Order Added by Nic Expert. Performed By: #### 2 685441, 2410576 ####[address] [address] Lymphocytes/Leukoc ytes Auto (Bld) [Pure # fraction] 0.9 E9/L Low 1.0-4.0 [facility] Comment on above: Order Comment: Order Added by Discern Expert. Performed By: #### 2 699846, 7380983 ####[address] [address] Monocytes/100 WBC (Bld) 9.3 % Normal 4.0-14.0 [facility] Comment on above: Order Comment: Order Added by Discern Expert. Performed By: #### 2 700106, 7766034 ####[facility] [address] [place] [address] Monocytes/Leukocyt es Auto (Bld) [Pure # fraction] 1.2 E9/L High 0.2-1.0 [facility] Comment on above: Order Comment: Order Added by Discern Expert. Performed By: #### 2 913134, 4968244 ####[address] [place] [address] Neutrophils/100 WBC (Bld) 84.0 % High 36.0-75.0 [facility] Comment on above: Order Comment: Order Added by Discern Expert. Performed By: #### 2 096652, 2758538 ####[address] [address] Neutrophils/Leukoc ytes Auto (Bld) [Pure # fraction] 11.1 E9/L High 2.0-7.5 [facility] Comment on above: Order Comment: Order Added by Discern Expert. Performed By: #### 2 454500, 6303531 ####[address] [address] BMPon 11-26-2020 Anion gap [Moles/Vol] 11 mmol/L Normal 6-16 [facility] Comment on above: Performed By: #### 2 096347, 65569256, 3874907, 4135018 ####[address] [place] [address] Calcium [Mass/Vol] 7.9 mg/dL Low 8.9-11.1 [facility] Comment on above: Performed By: #### 2 283394, 96267131, 9087719, 9830212 ####[facility] [address] [place] [address] Chloride [Moles/Vol] 108 mmol/L Normal 101-111 [facility] Comment on above: Performed By: #### 2 002581, 42613076, 1427696, 0621470 ####[facility] [address] [place] [address] CO2 [Moles/Vol] 27 mmol/L Normal 21-31 [facility] Comment on above: Performed By: #### 2 033164, 01726818, 4146532, 9357501 ####[address] [place] [address] Creatinine [Mass/Vol] 1.1 mg/dL Normal 0.5-1.3 [facility] Comment on above: Performed By: #### 2 557808, 64216527, 2869378, 6412348 ####[facility] [address] [place] [address] Glucose [Mass/Vol] 198 mg/dL Normal 55-199 [facility] Comment on above: Result Comment: If t his glucose result represents a fasting glucose, interpretation should refer to the following reference range: 55-99 mg/dL Performed By: #### 2 278984, 83345120, 5017746, 9888053 ####[facility] [address] [place] [address] Potassium [Moles/Vol] 4.9 mmol/L Normal 3.5-5.3 [facility] Comment on above: Performed By: #### 2 265536, 74820937, 3227230, 8732976 ####[facility] [address] [place] [address] Sodium [Moles/Vol] 141 mmol/L Normal 135-145 [facility] Comment on above: Performed By: #### 2 514102, 44279674, 0996285, 0908613 ####[facility] [address] [place] [address] Urea nitrogen [Mass/Vol] 26 mg/dL High 5-21 [facility] Comment on above: Performed By: #### 2 391972, 71578162, 2906957, 0308901 ####[facility] [address] [place] [address] Urea nitrogen/Creatinin e [Mass ratio] 24 No Units High 10-20 [facility] Comment on above: Performed By: #### 2 290980, 94890578, 9900199, 7988743 ####[facility] [address] [place] [address] Blood Gas Art, with Lytes, G jerzy, [place] 11-26-2020 a/A Ratio Art 11.70 % Normal >=0.80 [facility] Comment on above: Performed By: #### 4 97973874 ####[facility] [address] [place] [address] AaDO2 Art 573.6 mmHg High 5.0-15.0 [facility] Comment on above: Performed By: #### 4 66736184 ####[facility] [address] [place] [address] ACT. Rate 16 Invalid Interpretation Code [facility] Comment on above: Performed By: #### 4 16689138 ####[facility] [address] [place] [address] Allens Test Not Applicable Normal [facility] Comment on above: Performed By: #### 4 61260923 ####[facility] [address] [place] [address] Base Excess Arterial -0.1 mmol/L Low >=2.8 [facility] Comment on above: Performed By: #### 4 13417952 ####[facility] [address] [place] [address] cCa2+ Art 4.48 mg/dL Normal 4.40-5.30 [facility] Comment on above: Performed By: #### 4 91939558 ####[facility] [address] [place] [address] cCl- Art 109.0 mmol/L Normal 101.0-111. 0 [facility] Comment on above: Performed By: #### 4 57508557 ####[facility] [address] [place] [address] cGlu Art 189.0 mg/dL Normal 55.0-199.0 [facility] Comment on above: Performed By: #### 4 41323504 ####[facility] [address] [place] [address] cK+ Art 4.9 mmol/L Normal 3.5-5.3 [facility] Comment on above: Performed By: #### 4 05201772 ####[facility] [address] [place] [address] cLac Art .9 mmol/L Low 5.0-14.0 [facility] Comment on above: Performed By: #### 4 79539693 ####[facility] [address] [place] [address] backbreaker+ Art 138.0 mmol/L Normal 135.0-145. 0 [facility] Comment on above: Performed By: #### 4 82289402 ####[address] [address] Device Ventilator Normal [facility] Comment on above: Performed By: #### 4 58612788 ####[address] [address] Drawn by ELIZA Invalid Interpretation Code [facility] Comment on above: Performed By: #### 4 62014748 ####[address] [address] FCOHb Art 1.1 % Low 1.5-4.9 [facility] Comment on above: Result Comment: Refe rence rangeNonsmoker <1.5%Smoker <5.0%Heavy Smoker <9.0% Performed By: #### 4 81075641 ####[address] [address] FIO2 BG 100.0 Invalid Interpretation Code [facility] Comment on above: Performed By: #### 4 32399172 ####[address] [place] [address] FMetHb Art 1.0 % Normal 0.0-1.9 [facility] Comment on above: Performed By: #### 4 05372495 ####[address] [place] [address] FO2Hb Art 93.5 % Normal 93.0-100.0 [facility] Comment on above: Performed By: #### 4 17176219 ####[address] [address] HCO3 (Bld) [Moles/Vol] 24.3 mmol/L Normal 22.0-26.0 [facility] Comment on above: Performed By: #### 4 77931652 ####[facility] [address] [place] [address] Hemoglobin (Bld) [Mass/Vol] 11.1 g/dL Low 12.0-17.0 [facility] Comment on above: Performed By: #### 4 38589533 ####[address] [address] MECH. Rate 16 Invalid Interpretation Code [facility] Comment on above: Performed By: #### 4 14157486 ####[address] [address] MV 6.85 Invalid Interpretation Code [facility] Comment on above: Performed By: #### 4 69537395 ####[address] [address] Oxygen saturation in Blood 95.5 % Normal 95.0-100.0 [facility] Comment on above: Performed By: #### 4 88138547 ####[address] [address] P CO2 Arterial 44.2 mmHg Normal 35.0-45.0 [facility] Comment on above: Performed By: #### 4 89595023 ####[address] [address] P O2 Arterial 76.0 mmHg Low 80.0-100.0 [facility] Comment on above: Performed By: #### 4 53085129 ####[address] [place] [address] PEEP 5 Invalid Interpretation Code [facility] Comment on above: Performed By: #### 4 36922473 ####[facility] [address] [place] [address] pH Arterial 7.369 Normal 7.350-7.45 0 [facility] Comment on above: Performed By: #### 4 80314335 ####[facility] [address] [place] [address] Sample Site R Radial Normal [facility] Comment on above: Performed By: #### 4 78275661 ####[address] [address] Sample Type Arterial Draw Normal [facility] Comment on above: Performed By: #### 4 14826298 ####[place] [address] SET Vt 450 Invalid Interpretation Code [facility] Comment on above: Performed By: #### 4 92083688 ####[place] [address] Vent Mode AC Invalid Interpretation Code [facility] Comment on above: Performed By: #### 4 11166128 ####[place] [address] CBC w/ Auto Diffon 1 Erythrocyte distribution width (RBC) [Ratio] 15.0 % High 10.9-14.2 [facility] Comment on above: Performed By: #### 2 807001, 8903776 ####[place] [address] Hematocrit (Bld) [Volume fraction] 33.9 % Low 37.7-49.0 [facility] Comment on above: Performed By: #### 2 983082, 8413420 ####[place] [address] Hemoglobin (Bld) [Mass/Vol] 11.3 g/dL Low 13.5-17.5 [facility] Comment on above: Performed By: #### 2 564410, 5916241 ####[address] [address] MCH (RBC) [Entitic mass] 30.6 pg Normal 27.0-34.0 [facility] Comment on above: Performed By: #### 2 478362, 6765958 ####[place] [address] MCHC (RBC) [Mass/Vol] 33.4 g/dL Normal 31.4-36.0 [facility] Comment on above: Performed By: #### 2 671057, 9577880 ####[address] [address] MCV (RBC) [Entitic vol] 91.6 fL Normal 80.0-100.0 [facility] Comment on above: Performed By: #### 2 345574, 6955261 ####[place] [address] Platelet mean volume (Bld) [Entitic vol] 7.5 fL Normal 6.4-10.8 [facility] Comment on above: Performed By: #### 2 129253, 8737787 ####[place] [address] Platelets (Bld) [#/Vol] 125.0 E9/L Low 150.0-500. 0 [facility] Comment on above: Performed By: #### 2 929048, 5129640 ####[place] [address] RBC (Bld) [#/Vol] 3.7 E12/L Low 4.3-5.9 [facility] Comment on above: Performed By: #### 2 618283, 9570215 ####[place] [id number] WBC corrected for nucl RBC Auto (Bld) [#/Vol] 12.0 E9/L High 4.0-11.0 [facility] Comment on above: Performed By: #### 2 253276, 1988827 ####[address] [address] Erythrocyte distribution width (RBC) [Ratio] 15.1 % High 10.9-14.2 [facility] Comment on above: Performed By: #### 2 055706, 5250271 ####[address] [place] [address] Hematocrit (Bld) [Volume fraction] 34.6 % Low 37.7-49.0 [facility] Comment on above: Performed By: #### 2 351394, 9922347 ####[address] [address] Hemoglobin (Bld) [Mass/Vol] 11.4 g/dL Low 13.5-17.5 [facility] Comment on above: Performed By: #### 2 482444, 6863451 ####[address] [address] MCH (RBC) [Entitic mass] 30.2 pg Normal 27.0-34.0 [facility] Comment on above: Performed By: #### 2 746231, 1859277 ####[address] [address] MCHC (RBC) [Mass/Vol] 33.1 g/dL Normal 31.4-36.0 [facility] Comment on above: Performed By: #### 2 429345, 0893663 ####[address] [address] MCV (RBC) [Entitic vol] 91.4 fL Normal 80.0-100.0 [facility] Comment on above: Performed By: #### 2 148645, 3564335 ####[address] [address] Platelet mean volume (Bld) [Entitic vol] 7.6 fL Normal 6.4-10.8 [facility] Comment on above: Performed By: #### 2 000319, 3308184 ####[address] [address] Platelets (Bld) [#/Vol] 131.0 E9/L Low 150.0-500. 0 [facility] Comment on above: Performed By: #### 2 473286, 8514830 ####[address] [address] RBC (Bld) [#/Vol] 3.8 E12/L Low 4.3-5.9 [facility] Comment on above: Performed By: #### 2 182506, 7572802 ####[facility] [address] [place] [address] WBC corrected for nucl RBC Auto (Bld) [#/Vol] 13.2 E9/L High 4.0-11.0 [facility] Comment on above: Performed By: #### 2 432221, 4375486 ####[facility] [address] [place] [address] Capillary Glucose POCon Glucose [Mass/Vol] 172 mg/dL High 55-99 [facility] Comment on above: Result Comment: Javier childress RN/ Performed By: #### 2 73127525 ####[facility] [address] [place] [address] Glucose [Mass/Vol] 178 mg/dL High 55- [facility] Comment on above: Performed By: #### 2 40192937 ####[facility] [address] [place] [address] Glucose [Mass/Vol] 186 mg/dL High 55- [facility] Comment on above: Result Comment: Nella jose Meter Performed By: #### 2 68262987 ####[facility] [address] [place] [address] Glucose [Mass/Vol] 133 mg/dL High 55-99 [facility] Comment on above: Result Comment: Javier WEBB Performed By: #### 2 13372058 ####[facility] [address] [place] [address] Interdisciplinary Note - Sonido e Manageron 11-26-2020 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 CRM following. Normal [facility] Comment on above: Result Comment: Elec tronically Signed By: Vilma BURNHAM, Francine\.whitney\Date and Time Signed: 11/26/20 11:32 EDT Interdisciplinary Note - Boy n 11-26-2020 Interdisciplinary Note - OT 11/26/20 1105: Ot order received and chart review completed. Per RN, pt not appropriate yet for therapy as he just returned from surgery. Will check back 11/27/20. Normal [facility] Interdisciplinary Note - PTo n 11-26-2020 Interdisciplinary Note - PT PT orders received and chart reviewed. Attempted PT eval and pt. just got back from surgery and was having testing done in room. Will attempt 11/27/20. Normal [facility] Magnesiumon 11-26-2020 Magnesium [Mass/Vol] 1.9 mg/dL Normal 1.3-2.4 [facility] Comment on above: Performed By: #### 2 331207, 82083042, 7030386, 7278456 ####[facility] [address] [place] [address] Main OR PACU I Recordon Main OR PACU I Record Normal [facility] Monitor Recordon 11-26-2020 Monitor Record [id number] Normal [facility] Phosphoruson 11-26-2020 Phosphate [Mass/Vol] 2.2 mg/dL Normal 1.9-4.6 [facility] Comment on above: Performed By: #### 2 358500, 29892780, 2029452, 6876998 ####[facility] [address] [place] [address] Progress Note - Pharmacyon 0 11-26-2020 Progress Note - Pharmacy Normal [facility] Progress Note-Physicianon Progress Note-Physician Normal [facility] Comment on above: Result Comment: Elec tronically Signed By: Farrah NARAYANAN, Elba Beck\.br\Date and Time Signed: 11/26/20 13:51 EDT Progress Note-Physician Normal [facility] Comment on above: Result Comment: Elec tronically Signed By: Elba Moore MD\.br\Date and Time Signed: 11/26/20 08:10 EDT XR Chest Single Viewon 11-26 XR Chest Single View Normal [facility] XR Chest Single View Normal [facility] eGFRon 11-26-2020 GFR/1.73 sq M.predicted among blacks MDRD (S/P/Bld) [Vol rate/Area] mL/min/{1.73_m2} Normal >=59 [facility] Comment on above: Order Comment: Order added by Discern Expert. Result Comment: eGFR is race adjusted. AA=. Performed By: #### 2 918964, 61896941, 4872849, 8456632 ####[facility] [address] [place] [address] GFR/1.73 sq M.predicted among non-blacks MDRD (S/P/Bld) [Vol rate/Area] mL/min/{1.73_m2} Normal >=59 [facility] Comment on above: Order Comment: Order added by Discern Expert. Result Comment: 3 Year Olds Preschool Teacher nik kidney disease could be indicated at eGFR's of less than 60 mL/min/1.73m2. Kidney failure is indicated at less than 15 mL/min/1.73m2. Performed By: #### 2 269595, 44308412, 5773435, 6706838 ####[facility] [address] [place] [address] Auto Diffon 11-25-2020 Basophils/100 WBC (Bld) 0.1 % Normal 0.0-2.0 [facility] Comment on above: Order Comment: Order Added by Discern Expert. Performed By: #### 2 674859, 5980236, 2309656, 8782314, 24490657, 0408035 ####[facility] [address] [place] [address] Basophils/Leukocyt es Auto (Bld) [Pure # fraction] 0.0 E9/L Normal 0.0-0.2 [facility] Comment on above: Order Comment: Order Added by Discern Expert. Performed By: #### 2 277004, 8099383, 9461221, 4354117, 58635037, 7816505 ####[facility] [address] [place] [address] Eosinophils/100 WBC (Bld) 0.0 % Normal 0.0-8.0 [facility] Comment on above: Order Comment: Order Added by Discern Expert. Performed By: #### 2 311103, 9685236, 9312265, 1735158, 78955517, 3002770 ####[place] [address] [place] [address] Eosinophils/Leukoc ytes Auto (Bld) [Pure # fraction] 0.0 E9/L Normal 0.0-0.5 [facility] Comment on above: Order Comment: Order Added by Discern Expert. Performed By: #### 2 464458, 3133813, 7120399, 1318857, 35537434, 0190974 ####[address] [address] Lymphocytes/100 WBC (Bld) 6.9 % Low 14.0-50.0 [facility] Comment on above: Order Comment: Order Added by Discern Expert. Performed By: #### 2 068224, 3119347, 6700737, 5077407, 03137012, 7347109 ####[address] [address] Lymphocytes/Leukoc ytes Auto (Bld) [Pure # fraction] 0.9 E9/L Low 1.0-4.0 [facility] Comment on above: Order Comment: Order Added by Discern Expert. Performed By: #### 2 559868, 8086832, 2406465, 4631532, 47813055, 3272423 ####[place] [address] [place] [address] Monocytes/100 WBC (Bld) 8.8 % Normal 4.0-14.0 [facility] Comment on above: Order Comment: Order Added by Nic Expert. Performed By: #### 2 783272, 1003941, 8321648, 5258968, 74338099, 9745981 ####[address] [address] Monocytes/Leukocyt es Auto (Bld) [Pure # fraction] 1.1 E9/L High 0.2-1.0 [facility] Comment on above: Order Comment: Order Added by Discern Expert. Performed By: #### 2 408076, 6665386, 3463394, 9189064, 51763393, 5692576 ####[facility] [address] [place] [address] Neutrophils/100 WBC (Bld) 84.2 % High 36.0-75.0 [facility] Comment on above: Order Comment: Order Added by Discern Expert. Performed By: #### 2 541217, 4379770, 6788770, 0859434, 32366403, 8876208 ####[address] [address] Neutrophils/Leukoc ytes Auto (Bld) [Pure # fraction] 10.5 E9/L High 2.0-7.5 [facility] Comment on above: Order Comment: Order Added by Discern Expert. Performed By: #### 2 521387, 8433149, 0276763, 4885648, 93771886, 6692260 ####[address] [address] Basophils/100 WBC (Bld) 0.1 % Normal 0.0-2.0 [facility] Comment on above: Order Comment: Order Added by Discern Expert. Performed By: #### 2 626766, 9589531, 2346711, 1339650, 6314074, 21923307, 5229683, 5547956, 24836121 ####[place] [address] [place] [address] Basophils/Leukocyt es Auto (Bld) [Pure # fraction] 0.0 E9/L Normal 0.0-0.2 [facility] Comment on above: Order Comment: Order Added by Discern Expert. Performed By: #### 2 129933, 2804715, 3109429, 7328355, 4841649, 44207529, 3434110, 4752530, 21505343 ####[address] [place] [address] Eosinophils/100 WBC (Bld) 0.1 % Normal 0.0-8.0 [facility] Comment on above: Order Comment: Order Added by Discern Expert. Performed By: #### 2 364151, 7787867, 4712743, 9832210, 8390493, 66613137, 7881849, 4402235, 44625793 ####[address] [address] Eosinophils/Leukoc ytes Auto (Bld) [Pure # fraction] 0.0 E9/L Normal 0.0-0.5 [facility] Comment on above: Order Comment: Order Added by Discern Expert. Performed By: #### 2 498905, 8850562, 6925896, 8850088, 2874756, 68424913, 6348298, 1956662, 97107764 ####[address] [address] Lymphocytes/100 WBC (Bld) 4.5 % Low 14.0-50.0 [facility] Comment on above: Order Comment: Order Added by Discern Expert. Performed By: #### 2 466395, 7867209, 3933442, 7733581, 2490500, 92411652, 2885556, 0368781, 86253864 ####[address] [address] Lymphocytes/Leukoc ytes Auto (Bld) [Pure # fraction] 0.5 E9/L Low 1.0-4.0 [facility] Comment on above: Order Comment: Order Added by Discern Expert. Performed By: #### 2 248239, 1690650, 2822165, 7206479, 1156860, 58451649, 6720595, 5110961, 43706434 ####[place] [address] [place] [address] Monocytes/100 WBC (Bld) 7.0 % Normal 4.0-14.0 [facility] Comment on above: Order Comment: Order Added by Discern Expert. Performed By: #### 2 055965, 6751764, 3423267, 3373548, 1340263, 85018562, 9638290, 1826624, 32160750 ####[facility] [address] [place] [address] Monocytes/Leukocyt es Auto (Bld) [Pure # fraction] 0.8 E9/L Normal 0.2-1.0 [facility] Comment on above: Order Comment: Order Added by Discern Expert. Performed By: #### 2 760494, 6877494, 9192182, 7579306, 4583634, 96005717, 2155547, 4539480, 17135105 ####[place] [address] [place] [address] Neutrophils/100 WBC (Bld) 88.3 % High 36.0-75.0 [facility] Comment on above: Order Comment: Order Added by Discern Expert. Performed By: #### 2 734524, 9114450, 6217743, 3973289, 8272359, 13463599, 0599365, 2220618, 06922886 ####[facility] [address] [place] [address] Neutrophils/Leukoc ytes Auto (Bld) [Pure # fraction] 10.5 E9/L High 2.0-7.5 [facility] Comment on above: Order Comment: Order Added by Discern Expert. Performed By: #### 2 305913, 9912905, 1756284, 0758291, 4584383, 82945324, 3157981, 8442623, 89342027 ####[facility] [address] [place] [address] BMPon 11-25-2020 Anion gap [Moles/Vol] 12 mmol/L Normal 6-16 [facility] Comment on above: Performed By: #### 2 216797, 7463604, 8853405, 6262202, 49821584, 0942998 ####[facility] [address] [place] [address] Calcium [Mass/Vol] 7.4 mg/dL Low 8.9-11.1 [facility] Comment on above: Performed By: #### 2 885432, 6189414, 3576597, 8689576, 70318825, 2744236 ####[facility] [address] [place] [address] Chloride [Moles/Vol] 108 mmol/L Normal 101-111 [facility] Comment on above: Performed By: #### 2 115166, 2461831, 0334576, 4443741, 46338171, 4248666 ####[facility] [address] [place] [address] CO2 [Moles/Vol] 22 mmol/L Normal 21-31 [facility] Comment on above: Performed By: #### 2 899867, 8569621, 0370878, 0854963, 04514028, 8956885 ####[facility] [address] [place] [address] Creatinine [Mass/Vol] 1.1 mg/dL Normal 0.5-1.3 [facility] Comment on above: Performed By: #### 2 334967, 8623603, 5694436, 1166015, 32317687, 9783951 ####[facility] [address] [place] [address] Glucose [Mass/Vol] 247 mg/dL High 55-199 [facility] Comment on above: Result Comment: If t his glucose result represents a fasting glucose, interpretation should refer to the following reference range: 55-99 mg/dL Performed By: #### 2 754882, 6438002, 5184828, 7998733, 69116055, 0231264 ####[facility] [address] [place] [address] Potassium [Moles/Vol] 5.1 mmol/L Normal 3.5-5.3 [facility] Comment on above: Performed By: #### 2 298774, 7327229, 7825746, 2224458, 20913767, 8880408 ####[facility] [address] [place] [address] Sodium [Moles/Vol] 137 mmol/L Normal 135-145 [facility] Comment on above: Performed By: #### 2 238267, 4667475, 1112055, 8462415, 71886574, 1042440 ####[facility] [address] [place] [address] Urea nitrogen [Mass/Vol] 24 mg/dL High 5-21 [facility] Comment on above: Performed By: #### 2 916466, 5642158, 3213846, 3916908, 47604104, 6505720 ####[facility] [address] [place] [address] Urea nitrogen/Creatinin e [Mass ratio] 22 No Units High 10-20 [facility] Comment on above: Performed By: #### 2 819528, 6258444, 9073934, 9525173, 94479134, 7490931 ####[facility] [address] [place] [address] Potassium [Moles/Vol] 5.5 mmol/L High 3.5-5.3 [facility] Comment on above: Result Comment: Resu lt S_K:5.5 Called to LISA PANDEY AT ICU by MARY RAPHAEL And Read Back For Confirmation at: 11/24/2020 22:25:43 Performed By: #### 2 118068, 7987625, 2174652, 8652914, 6619638, 19031096, 7521134, 3680693, 89711313 ####[facility] [address] [place] [address] Anion gap [Moles/Vol] 16 mmol/L Normal 6-16 [facility] Comment on above: Performed By: #### 2 565345, 1670543, 8333085, 1078750, 0090108, 54553112, 2817747, 9006864, 64371025 ####[facility] [address] [place] [address] Calcium [Mass/Vol] 7.5 mg/dL Low 8.9-11.1 [facility] Comment on above: Performed By: #### 2 218697, 1084076, 5186340, 4399618, 5446673, 88683703, 2242978, 2918842, 64251407 ####[facility] [address] [place] [address] Chloride [Moles/Vol] 105 mmol/L Normal 101-111 [facility] Comment on above: Performed By: #### 2 687600, 4599939, 2059186, 9051526, 9194939, 84929216, 3598723, 7933196, 01616949 ####[facility] [address] [place] [address] CO2 [Moles/Vol] 23 mmol/L Normal 21-31 [facility] Comment on above: Performed By: #### 2 645085, 3655223, 5532824, 5061071, 3605087, 69840907, 0219900, 9412527, 40849978 ####[facility] [address] [place] [address] Creatinine [Mass/Vol] 1.0 mg/dL Normal 0.5-1.3 [facility] Comment on above: Performed By: #### 2 971151, 0240083, 2091661, 6711871, 7586666, 46519647, 9555982, 1138997, 16160045 ####[facility] [address] [place] [address] Glucose [Mass/Vol] 248 mg/dL High 55-199 [facility] Comment on above: Result Comment: If t his glucose result represents a fasting glucose, interpretation should refer to the following reference range: 55-99 mg/dL Performed By: #### 2 912120, 0840510, 7881693, 9016174, 2873413, 54383223, 3523918, 0967075, 48730735 ####[facility] [address] [place] [address] Sodium [Moles/Vol] 138 mmol/L Normal 135-145 [facility] Comment on above: Performed By: #### 2 722660, 5348055, 9701629, 3665172, 7276938, 26961839, 1223065, 3779919, 29719455 ####[facility] [address] [place] [address] Urea nitrogen [Mass/Vol] 24 mg/dL High 5-21 [facility] Comment on above: Performed By: #### 2 485778, 1920985, 0380344, 3639399, 0536192, 31024402, 9544041, 8744763, 36747403 ####[facility] [address] [place] [address] Urea nitrogen/Creatinin e [Mass ratio] 24 No Units High 10-20 [facility] Comment on above: Performed By: #### 2 964691, 8750378, 8273081, 5866870, 0062159, 49988340, 0128743, 4902546, 13920073 ####[facility] [address] [place] [address] Blood Gas Art, with Lytes, G jerzy, [place] 11-25-2020 a/A Ratio Art 29.50 % Normal >=0.80 [facility] Comment on above: Performed By: #### 4 44588787 ####[facility] [address] [place] [address] AaDO2 Art 187.8 mmHg High 5.0-15.0 [facility] Comment on above: Performed By: #### 4 72465984 ####[facility] [address] [place] [address] ACT. Rate 16 Invalid Interpretation Code [facility] Comment on above: Performed By: #### 4 11379250 ####[facility] [address] [place] [address] Allens Test Positive Normal [facility] Comment on above: Performed By: #### 4 41818485 ####[facility] [address] [place] [address] Base Excess Arterial -2.6 mmol/L Low >=2.8 [facility] Comment on above: Performed By: #### 4 24542287 ####[facility] [address] [place] [address] cCa2+ Art 4.33 mg/dL Low 4.40-5.30 [facility] Comment on above: Performed By: #### 4 95307113 ####[facility] [address] [place] [address] cCl- Art 110.0 mmol/L Normal 101.0-111. 0 [facility] Comment on above: Performed By: #### 4 05408068 ####[facility] [address] [place] [address] cGlu Art 200.0 mg/dL High 55.0-199.0 [facility] Comment on above: Performed By: #### 4 81059088 ####[facility] [address] [place] [address] cK+ Art 4.8 mmol/L Normal 3.5-5.3 [facility] Comment on above: Performed By: #### 4 35407277 ####[facility] [address] [place] [address] cLac Art 1.3 mmol/L Low 5.0-14.0 [facility] Comment on above: Performed By: #### 4 70529653 ####[facility] [address] [place] [address] backbreaker+ Art 139.0 mmol/L Normal 135.0-145. 0 [facility] Comment on above: Performed By: #### 4 84640242 ####[facility] [address] [place] [address] Device Ventilator Normal [facility] Comment on above: Performed By: #### 4 00918304 ####[facility] [address] [place] [address] Drawn by ELIZA Invalid Interpretation Code [facility] Comment on above: Performed By: #### 4 00193676 ####[facility] [address] [place] [address] FCOHb Art 0.7 % Low 1.5-4.9 [facility] Comment on above: Result Comment: Refe rence rangeNonsmoker <1.5%Smoker <5.0%Heavy Smoker <9.0% Performed By: #### 4 30916304 ####[facility] [address] [place] [address] FIO2 BG 45.0 Invalid Interpretation Code [facility] Comment on above: Performed By: #### 4 39255163 ####[address] [place] [address] FMetHb Art 0.8 % Normal 0.0-1.9 [facility] Comment on above: Performed By: #### 4 25247914 ####[address] [place] [address] FO2Hb Art 94.6 % Normal 93.0-100.0 [facility] Comment on above: Performed By: #### 4 35790802 ####[address] [place] [address] HCO3 (Bld) [Moles/Vol] 22.2 mmol/L Normal 22.0-26.0 [facility] Comment on above: Performed By: #### 4 91198572 ####[facility] [address] [place] [address] Hemoglobin (Bld) [Mass/Vol] 13.2 g/dL Normal 12.0-17.0 [facility] Comment on above: Performed By: #### 4 28549229 ####[facility] [address] [place] [address] MECH. Rate 16 Invalid Interpretation Code [facility] Comment on above: Performed By: #### 4 69503546 ####[facility] [address] [place] [address] MV 6.85 Invalid Interpretation Code [facility] Comment on above: Performed By: #### 4 83987288 ####[address] [place] [address] Oxygen saturation in Blood 96.0 % Normal 95.0-100.0 [facility] Comment on above: Performed By: #### 4 70660845 ####[address] [place] [address] P CO2 Arterial 41.7 mmHg Normal 35.0-45.0 [facility] Comment on above: Performed By: #### 4 83674577 ####[address] [address] P O2 Arterial 78.5 mmHg Low 80.0-100.0 [facility] Comment on above: Performed By: #### 4 79780430 ####[address] [address] PEEP 5 Invalid Interpretation Code [facility] Comment on above: Performed By: #### 4 91285813 ####[address] [address] pH Arterial 7.349 Low 7.350-7.45 0 [facility] Comment on above: Performed By: #### 4 97092021 ####[address] [address] Sample Site R Radial Normal [facility] Comment on above: Performed By: #### 4 50543736 ####[address] [address] Sample Type Arterial Draw Normal [facility] Comment on above: Performed By: #### 4 02736684 ####[address] [address] SET Vt 450 Invalid Interpretation Code [facility] Comment on above: Performed By: #### 4 52140522 ####[address] [address] Vent Mode AC Invalid Interpretation Code [facility] Comment on above: Performed By: #### 4 22759625 ####[address] [address] CBC w/ Auto Diffon 1 Erythrocyte distribution width (RBC) [Ratio] 14.8 % High 10.9-14.2 [facility] Comment on above: Performed By: #### 2 744489, 5285913, 5716194, 7263248, 14833667, 5083194 ####[facility] [address] [place] [address] Hematocrit (Bld) [Volume fraction] 38.8 % Normal 37.7-49.0 [facility] Comment on above: Performed By: #### 2 897324, 7538538, 8151186, 0718781, 87836728, 6740785 ####[address] [place] [address] Hemoglobin (Bld) [Mass/Vol] 13.0 g/dL Low 13.5-17.5 [facility] Comment on above: Performed By: #### 2 608235, 0627848, 5131553, 2326308, 80783882, 1735312 ####[facility] [address] [place] [address] MCH (RBC) [Entitic mass] 30.0 pg Normal 27.0-34.0 [facility] Comment on above: Performed By: #### 2 450871, 5315239, 6830728, 5130057, 61965298, 0722459 ####[address] [address] MCHC (RBC) [Mass/Vol] 33.5 g/dL Normal 31.4-36.0 [facility] Comment on above: Performed By: #### 2 411317, 0586524, 2404856, 8934024, 29793003, 2989589 ####[address] [place] [address] MCV (RBC) [Entitic vol] 89.5 fL Normal 80.0-100.0 [facility] Comment on above: Performed By: #### 2 736386, 9448092, 6312970, 4528772, 85307433, 1372937 ####[facility] [address] [place] [address] Platelet mean volume (Bld) [Entitic vol] 7.2 fL Normal 6.4-10.8 [facility] Comment on above: Performed By: #### 2 699821, 9794786, 2086723, 2554536, 00810720, 2629395 ####[address] [place] [address] Platelets (Bld) [#/Vol] 150.0 E9/L Normal 150.0-500. 0 [facility] Comment on above: Performed By: #### 2 372242, 8118328, 0647138, 9929964, 11316516, 6240607 ####[address] [address] RBC (Bld) [#/Vol] 4.3 E12/L Normal 4.3-5.9 [facility] Comment on above: Performed By: #### 2 716353, 0218111, 0359302, 9630341, 53410453, 2045014 ####[address] [address] WBC corrected for nucl RBC Auto (Bld) [#/Vol] 12.5 E9/L High 4.0-11.0 [facility] Comment on above: Performed By: #### 2 173120, 1705111, 1735677, 3660237, 71325102, 8970864 ####[address] [place] [address] Erythrocyte distribution width (RBC) [Ratio] 15.2 % High 10.9-14.2 [facility] Comment on above: Performed By: #### 2 828284, 2228019, 7169582, 4459207, 8680234, 39378968, 6221247, 6228539, 41959173 ####[address] [place] [address] Hematocrit (Bld) [Volume fraction] 44.3 % Normal 37.7-49.0 [facility] Comment on above: Performed By: #### 2 624913, 5408194, 1776795, 8698163, 0644634, 44617113, 7805528, 5412513, 04157428 ####[facility] [address] [place] [address] Hemoglobin (Bld) [Mass/Vol] 14.8 g/dL Normal 13.5-17.5 [facility] Comment on above: Performed By: #### 2 432839, 0067315, 6714909, 1553633, 6186274, 50857332, 0455529, 7391701, 13777107 ####[facility] [id number] [place] [address] MCH (RBC) [Entitic mass] 30.4 pg Normal 27.0-34.0 [facility] Comment on above: Performed By: #### 2 210619, 2831117, 3580029, 2067333, 1179365, 43555172, 5829887, 7805806, 30226899 ####[facility] [address] [place] [address] MCHC (RBC) [Mass/Vol] 33.3 g/dL Normal 31.4-36.0 [facility] Comment on above: Performed By: #### 2 756406, 4110850, 1647038, 7059464, 8093678, 94385230, 5929642, 3090705, 60181489 ####[facility] [address] [place] [address] MCV (RBC) [Entitic vol] 91.0 fL Normal 80.0-100.0 [facility] Comment on above: Performed By: #### 2 546083, 0110766, 7009895, 2957936, 6640182, 44540783, 4664903, 5165922, 91558024 ####[facility] [address] [place] [address] Platelet mean volume (Bld) [Entitic vol] 7.5 fL Normal 6.4-10.8 [facility] Comment on above: Performed By: #### 2 254973, 9320070, 3236845, 3737882, 7104869, 58004994, 5922619, 0285137, 19629829 ####[facility] [address] [place] [address] Platelets (Bld) [#/Vol] 164.0 E9/L Normal 150.0-500. 0 [facility] Comment on above: Performed By: #### 2 037866, 8762100, 9741819, 2733024, 9345542, 25992682, 8373711, 6259114, 10079018 ####[facility] [address] [place] [address] RBC (Bld) [#/Vol] 4.9 E12/L Normal 4.3-5.9 [facility] Comment on above: Performed By: #### 2 130221, 1680135, 4739499, 0624758, 4522639, 29797929, 4831051, 9026494, 64118896 ####[facility] [address] [place] [address] WBC corrected for nucl RBC Auto (Bld) [#/Vol] 11.9 E9/L High 4.0-11.0 [facility] Comment on above: Performed By: #### 2 358379, 3369076, 6659844, 1489565, 5463086, 63870421, 6166564, 2178273, 74316473 ####[facility] [address] [place] [address] Capillary Glucose POCon 06-0 Glucose [Mass/Vol] 138 mg/dL High 55-99 [facility] Comment on above: Performed By: #### 2 [id number] ####[facility] [address] [place] [address] Glucose [Mass/Vol] 187 mg/dL High 55-99 [facility] Comment on above: Result Comment: Nella jose Meter Performed By: #### 2 71800022 ####[facility] [address] [place] [address] Glucose [Mass/Vol] 205 mg/dL High 55-99 [facility] Comment on above: Result Comment: Javier childress RN/ Performed By: #### 2 81308925 ####[facility] [address] [place] [address] Glucose [Mass/Vol] 241 mg/dL High 55-99 [facility] Comment on above: Result Comment: Nella jose MeterHourly Monitoring Performed By: #### 2 [id number] ####[facility] [address] [place] [address] Interdisciplinary Note - Sonido e Manageron 11-25-2020 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 no family present. Contact information provided and white board updated. CRM following. Normal [facility] Comment on above: Result Comment: Elec tronically Signed By: Vilma BURNHAM, Francine\.whitney\Date and Time Signed: 11/25/20 10:32 EDT Lactic Acidon 11-25-2020 Lactate [Mass/Vol] 2.2 mmol/L Normal 0.5-2.2 [facility] Comment on above: Order Comment: Order added by EKS Rule. (FT_LACTIC_ACID_REFLEX) Adds reflex Lactic Acid 4 hours after initial if result is greater than or equal to 2.0. Performed By: #### 2 012967 ####[facility] [address] [place] [address] Lactate [Mass/Vol] 3.0 mmol/L High 0.5-2.2 [facility] Comment on above: Order Comment: TEJ bruce upon iv start, sent to lab @2200. [id number] 11/24/2020 22:03:14 EDT Performed By: #### 2 010106, 3454944, 2337394, 9930146, 5931690, 42180101, 2708291, 7808467, 07186153 ####[facility] [address] [place] [address] Magnesiumon 11-25-2020 Magnesium [Mass/Vol] 1.8 mg/dL Normal 1.3-2.4 [facility] Comment on above: Performed By: #### 2 518556, 6722400, 1908725, 0085622, 66968497, 3881282 ####[facility] [address] [place] [address] Magnesium [Mass/Vol] 1.8 mg/dL Normal 1.3-2.4 [facility] Comment on above: Performed By: #### 2 416869, 4737241, 6697723, 0489178, 6934639, 06189119, 9357475, 4457158, 48287150 ####[facility] [address] [place] [address] PT & PTTon 11-25-2020 aPTT Coag (PPP) [Time] 27.6 second(s) Normal 25.1-36.5 [facility] Comment on above: Result Comment: Hepa rin therapeutic range (represented by Anti-Factor Xa activity of 0.2 - 0.4 U/mL) corresponds to PTT of 56.6 - 109.0 sec. Performed By: #### 2 668141, 8065600, 2575832, 0539082, 3934070, 69273823, 8773449, 4752769, 20676980 ####[facility] [address] [place] [address] INR Coag (PPP) [Relative time] 1.0 {INR} Invalid Interpretation Code [facility] Comment on above: Result Comment: INR results are specifically intended to assess patients stabilized on long-term Anticoagulation therapy suggested INR?s ?Less Intensive Anticoagulation? 2.0 ? 3.0Conventional Range 3.0 ? 4.5 Performed By: #### 2 620983, 1703187, 6089021, 2014981, 4526536, 32099980, 3273567, 1027526, 58535719 ####[facility] [address] [place] [address] PT Coag (PPP) [Time] 11.7 second(s) Normal 10.2-12.9 [facility] Comment on above: Performed By: #### 2 425412, 1532694, 0416130, 7405010, 3612906, 06313153, 2457323, 0038868, 96277580 ####[facility] [address] [place] [address] Phosphoruson 11-25-2020 Phosphate [Mass/Vol] 2.7 mg/dL Normal 1.9-4.6 [facility] Comment on above: Performed By: #### 2 349850, 8883334, 8341477, 9731508, 11786301, 8369164 ####[facility] [address] [place] [address] Phosphate [Mass/Vol] 2.7 mg/dL Normal 1.9-4.6 [facility] Comment on above: Performed By: #### 2 331224, 0073418, 5575941, 5272379, 3343061, 13733716, 5112470, 5072185, 58103782 ####[facility] [address] [place] [address] Progress Note - Pharmacyon 0 11-25-2020 Progress Note - Pharmacy Normal [facility] Progress Note-Physicianon Progress Note-Physician Normal [facility] Comment on above: Result Comment: Elec tronically Signed By: Farrah NARAYANAN, Elba Nguyen.br\Date and Time Signed: 11/24/20 23:26 EDT Triglycerideson 11-25-2020 Triglyceride [Mass/Vol] 108 mg/dL Normal <=149 [facility] Comment on above: Performed By: #### 2 833176, 5638734, 4096431, 9702093, 7575004, 41047417, 1174584, 7662969, 22695792 ####[facility] [address] [place] [address] XR Chest Single Viewon 11-25 XR Chest Single View Normal [facility] XR Chest Single View Normal [facility] eGFRon 11-25-2020 GFR/1.73 sq M.predicted among blacks MDRD (S/P/Bld) [Vol rate/Area] mL/min/{1.73_m2} Normal >=59 [facility] Comment on above: Order Comment: Order added by Discern Expert. Result Comment: eGFR is race adjusted. AA=. Performed By: #### 2 253592, 4308742, 6720694, 6554070, 71335929, 0732133 ####[facility] [address] [place] [address] GFR/1.73 sq M.predicted among non-blacks MDRD (S/P/Bld) [Vol rate/Area] mL/min/{1.73_m2} Normal >=59 [facility] Comment on above: Order Comment: Order added by Discern Expert. Result Comment: 3 Year Olds Preschool Teacher nik kidney disease could be indicated at eGFR's of less than 60 mL/min/1.73m2. Kidney failure is indicated at less than 15 mL/min/1.73m2. Performed By: #### 2 564921, 5792255, 9296635, 7288151, 37753917, 7545301 ####[facility] [address] [place] [address] GFR/1.73 sq M.predicted among blacks MDRD (S/P/Bld) [Vol rate/Area] mL/min/{1.73_m2} Normal >=59 [facility] Comment on above: Order Comment: Order added by Discern Expert. Result Comment: eGFR is race adjusted. AA=. Performed By: #### 2 708630, 3012074, 7210081, 6662923, 3801026, 65107433, 8560209, 7590437, 19629306 ####[facility] [address] [place] [address] GFR/1.73 sq M.predicted among non-blacks MDRD (S/P/Bld) [Vol rate/Area] mL/min/{1.73_m2} Normal >=59 [facility] Comment on above: Order Comment: Order added by Discern Expert. Result Comment: 3 Year Olds Preschool Teacher nik kidney disease could be indicated at eGFR's of less than 60 mL/min/1.73m2. Kidney failure is indicated at less than 15 mL/min/1.73m2. Performed By: #### 2 200345, 9294800, 8026524, 8682226, 4356658, 70717178, 1245242, 3738791, 59046588 ####[address] [place] [address] ABO/Rhon 11-24-2020 ABO/Rh Positive Invalid Interpretation Code [facility] Comment on above: Performed By: #### 2 202315, 96637241, 98633100, 48824564 ####[address] [address] ABO/Rh History Checkon 11-24 ABO/Rh History Check Type verified by second s Normal [facility] Comment on above: Performed By: #### 2 378712, 84375174, 13209619, 38691742 ####[address] [address] ABO/Rh Retypeon 11-24-2020 ABO/Rh Retype Interp Positive Invalid Interpretation Code [facility] Comment on above: Performed By: #### 1 3762721 ####[address] [place] [address] ABSCon 11-24-2020 ABSC Gel Interp Negative Normal [facility] Comment on above: Performed By: #### 2 600982, 28558713, 70535562, 53383824 ####[facility] [address] [place] [address] Auto Diffon 11-24-2020 Basophils/100 WBC (Bld) 0.4 % Normal 0.0-2.0 [facility] Comment on above: Order Comment: Order Added by Discern Expert. Performed By: #### 2 606416, 9553785, 89147073, 3491747, 7733129, 7942142, 0483727, 78438733, 5942470, 8231582 ####[address] [place] [address] Basophils/Leukocyt es Auto (Bld) [Pure # fraction] 0.0 E9/L Normal 0.0-0.2 [facility] Comment on above: Order Comment: Order Added by Discern Expert. Performed By: #### 2 030901, 2943820, 65474307, 9595713, 5205862, 5424708, 3755158, 48053571, 7913488, 6756336 ####[address] [address] Eosinophils/100 WBC (Bld) 0.5 % Normal 0.0-8.0 [facility] Comment on above: Order Comment: Order Added by Discern Expert. Performed By: #### 2 946026, 6714389, 50247131, 8234792, 6948899, 4450915, 2881269, 39817522, 4253977, 9570310 ####[address] [address] Eosinophils/Leukoc ytes Auto (Bld) [Pure # fraction] 0.0 E9/L Normal 0.0-0.5 [facility] Comment on above: Order Comment: Order Added by Discern Expert. Performed By: #### 2 335715, 1770250, 24059414, 8155588, 5444332, 2145479, 4803759, 54504993, 6498805, 7893947 ####[address] [address] Lymphocytes/100 WBC (Bld) 26.0 % Normal 14.0-50.0 [facility] Comment on above: Order Comment: Order Added by Discern Expert. Performed By: #### 2 913317, 5786176, 75876061, 3845792, 0022199, 7120559, 8325112, 16994277, 8825553, 7443939 ####[address] [place] [address] Lymphocytes/Leukoc ytes Auto (Bld) [Pure # fraction] 2.8 E9/L Normal 1.0-4.0 [facility] Comment on above: Order Comment: Order Added by Discern Expert. Performed By: #### 2 655144, 2488739, 27211201, 4438909, 3691491, 6889400, 8024576, 25156773, 7998570, 9426289 ####[facility] [address] [place] [address] Monocytes/100 WBC (Bld) 5.6 % Normal 4.0-14.0 [facility] Comment on above: Order Comment: Order Added by Discern Expert. Performed By: #### 2 008737, 4456001, 90424570, 0379594, 0142814, 8131879, 1366902, 21364697, 9267083, 1926828 ####[address] [address] Monocytes/Leukocyt es Auto (Bld) [Pure # fraction] 0.6 E9/L Normal 0.2-1.0 [facility] Comment on above: Order Comment: Order Added by Discern Expert. Performed By: #### 2 255530, 4512179, 27626744, 7215694, 3685734, 1212840, 7278883, 51436331, 8185908, 2033649 ####[address] [place] [address] Neutrophils/100 WBC (Bld) 67.5 % Normal 36.0-75.0 [facility] Comment on above: Order Comment: Order Added by Discern Expert. Performed By: #### 2 148579, 0639598, 11281822, 5557606, 0139458, 3241615, 5286424, 31156607, 6292973, 3290698 ####[address] [place] [address] Neutrophils/Leukoc ytes Auto (Bld) [Pure # fraction] 7.3 E9/L Normal 2.0-7.5 [facility] Comment on above: Order Comment: Order Added by Discern Expert. Performed By: #### 2 776634, 9607113, 58865958, 3453388, 3210879, 4991829, 4042977, 63707444, 0663400, 4475023 ####[facility] [address] [place] [address] BMPon 11-24-2020 Creatinine [Mass/Vol] 1.0 mg/dL Normal 0.5-1.3 [facility] Comment on above: Order Comment: First microtainer did not have enough plasma for all tests. Sharlene is drawing another green for the BUN and Creatinine. [facility] 11/24/2020 16:13:42 EDT Performed By: #### 2 475907, 4032511, 84668502, 8333367, 4322225, 6097157, 8478308, 54235965, 6502045, 6612491 ####[facility] [address] [place] [address] Urea nitrogen [Mass/Vol] 25 mg/dL High 5-21 [facility] Comment on above: Order Comment: First microtainer did not have enough plasma for all tests. Sharlene is drawing another green for the BUN and Creatinine. [facility] 11/24/2020 16:13:42 EDT Performed By: #### 2 695624, 8329569, 13238369, 0103275, 0727393, 7366564, 7473646, 70209965, 1863023, 1359425 ####[facility] [address] [place] [address] Urea nitrogen/Creatinin e [Mass ratio] 25 No Units High 10-20 [facility] Comment on above: Order Comment: First microtainer did not have enough plasma for all tests. Sharlene is drawing another green for the BUN and Creatinine. [facility] 11/24/2020 16:13:42 EDT Performed By: #### 2 402122, 2098372, 34563408, 3156811, 9996532, 1786730, 7800267, 44516194, 6959590, 1892330 ####[facility] [address] [place] [address] Anion gap [Moles/Vol] 24 mmol/L High 6-16 [facility] Comment on above: Order Comment: First microtainer did not have enough plasma for all tests. Sharlene is drawing another green for the BUN and Creatinine. [facility] 11/24/2020 16:13:42 EDT Performed By: #### 2 010595, 3413371, 63957848, 7461253, 6885659, 4971590, 0548074, 33823451, 8878364, 5917855 ####[facility] [address] [place] [address] Calcium [Mass/Vol] 8.6 mg/dL Low 8.9-11.1 [facility] Comment on above: Order Comment: First microtainer did not have enough plasma for all tests. Sharlene is drawing another green for the BUN and Creatinine. [facility] 11/24/2020 16:13:42 EDT Performed By: #### 2 061928, 3839646, 08381762, 9518177, 6602436, 5003262, 7824072, 21799486, 7148181, 0294347 ####[facility] [address] [place] [address] Chloride [Moles/Vol] 100 mmol/L Low 101-111 [facility] Comment on above: Order Comment: First microtainer did not have enough plasma for all tests. Sharlene is drawing another green for the BUN and Creatinine. [facility] 11/24/2020 16:13:42 EDT Performed By: #### 2 757137, 9541969, 07411646, 1197183, 1243673, 9650264, 2635854, 30319269, 7600874, 2609343 ####[facility] [address] [place] [address] CO2 [Moles/Vol] 21 mmol/L Normal 21-31 [facility] Comment on above: Order Comment: First microtainer did not have enough plasma for all tests. Sharlene is drawing another green for the BUN and Creatinine. [facility] 11/24/2020 16:13:42 EDT Performed By: #### 2 298878, 7236759, 86310730, 6464073, 9286340, 2170272, 5317587, 68209057, 3355036, 5472719 ####[facility] [address] [place] [address] Glucose [Mass/Vol] 173 mg/dL Normal 55-199 [facility] Comment on above: Order Comment: First microtainer did not have enough plasma for all tests. Sharlene is drawing another green for the BUN and Creatinine. [facility] 11/24/2020 16:13:42 EDT Result Comment: If t his glucose result represents a fasting glucose, interpretation should refer to the following reference range: 55-99 mg/dL Performed By: #### 2 373022, 8059453, 99084061, 8893067, 6188093, 7421474, 7115220, 49195801, 9783734, 9119428 ####[facility] [address] [place] [address] Potassium [Moles/Vol] 4.2 mmol/L Normal 3.5-5.3 [facility] Comment on above: Order Comment: First microtainer did not have enough plasma for all tests. Sharlene is drawing another green for the BUN and Creatinine. [facility] 11/24/2020 16:13:42 EDT Performed By: #### 2 474709, 9736952, 53632684, 5584929, 0859932, 9767927, 5814170, 88625604, 4910438, 7299807 ####[facility] [address] [place] [address] Sodium [Moles/Vol] 141 mmol/L Normal 135-145 [facility] Comment on above: Order Comment: First microtainer did not have enough plasma for all tests. Sharlene is drawing another green for the BUN and Creatinine. [facility] 11/24/2020 16:13:42 EDT Performed By: #### 2 665791, 2158197, 79067818, 9133040, 2392356, 8986528, 7587123, 76811657, 6849561, 1249274 ####[facility] [address] [place] [address] Blood Bank ID#on 11-24-2020 BBID# [id number] Invalid Interpretation Code [facility] Comment on above: Performed By: #### 2 254829, 56603511, 85654581, 52003702 ####[facility] [address] [facility] [place] [address] Blood Gas Art, with Lytes, G jerzy, Lacton 11-24-2020 a/A Ratio Art 30.40 % Normal >=0.80 [facility] Comment on above: Performed By: #### 4 40356966 ####[facility] [address] [place] [address] AaDO2 Art 203.5 mmHg High 5.0-15.0 [facility] Comment on above: Performed By: #### 4 33738456 ####[facility] [address] [place] [address] Allens Test Positive Normal [facility] Comment on above: Performed By: #### 4 55703447 ####[facility] [address] [place] [address] Base Excess Arterial -6.4 mmol/L Low >=2.8 [facility] Comment on above: Performed By: #### 4 22728681 ####[facility] [address] [place] [address] cCa2+ Art 4.15 mg/dL Low 4.40-5.30 [facility] Comment on above: Performed By: #### 4 02505805 ####[facility] [address] [place] [address] cCl- Art 112.0 mmol/L High 101.0-111. 0 [facility] Comment on above: Performed By: #### 4 40026732 ####[facility] [address] [place] [address] cGlu Art 252.0 mg/dL High 55.0-199.0 [facility] Comment on above: Performed By: #### 4 72869898 ####[address] [place] [address] cK+ Art 5.5 mmol/L High 3.5-5.3 [facility] Comment on above: Performed By: #### 4 84163241 ####[address] [place] [address] cLac Art .9 mmol/L Low 5.0-14.0 [facility] Comment on above: Performed By: #### 4 64751624 ####[address] backbreaker+ Art 139.0 mmol/L Normal 135.0-145. 0 [facility] Comment on above: Performed By: #### 4 69912116 ####[place] [address] Drawn by DC Invalid Interpretation Code [facility] Comment on above: Performed By: #### 4 15275668 ####[place] [address] FCOHb Art 1.0 % Low 1.5-4.9 [facility] Comment on above: Result Comment: Refe rence rangeNonsmoker <1.5%Smoker <5.0%Heavy Smoker <9.0% Performed By: #### 4 81712246 ####[address] [address] FIO2 BG 50.0 Invalid Interpretation Code [facility] Comment on above: Performed By: #### 4 96050226 ####[address] [address] FMetHb Art 1.0 % Normal 0.0-1.9 [facility] Comment on above: Performed By: #### 4 29056491 ####[address] [address] FO2Hb Art 94.3 % Normal 93.0-100.0 [facility] Comment on above: Performed By: #### 4 75487960 ####[address] [address] HCO3 (Bld) [Moles/Vol] 19.2 mmol/L Low 22.0-26.0 [facility] Comment on above: Performed By: #### 4 48097558 ####[facility] [address] [place] [address] Hemoglobin (Bld) [Mass/Vol] 14.8 g/dL Normal 12.0-17.0 [facility] Comment on above: Performed By: #### 4 64070532 ####[address] [place] [address] Oxygen saturation in Blood 96.2 % Normal 95.0-100.0 [facility] Comment on above: Performed By: #### 4 76393969 ####[address] [address] P CO2 Arterial 48.8 mmHg High 35.0-45.0 [facility] Comment on above: Performed By: #### 4 68660457 ####[address] [address] P O2 Arterial 88.9 mmHg Normal 80.0-100.0 [facility] Comment on above: Performed By: #### 4 01434719 ####[address] [address] pH Arterial 7.245 Abnormal 7.350-7.45 0 [facility] Comment on above: Result Comment: Resu lts Called To DR MOORE By PENELOPE RODRIGUEZ_ And Read Back For Confirmation On 11/24/2020 21:22:10 EDT_. Performed By: #### 4 87940981 ####[address] [place] [address] Sample Site L Radial Normal [facility] Comment on above: Performed By: #### 4 84415090 ####[facility] [address] [place] [address] Sample Type Arterial Draw Normal [facility] Comment on above: Performed By: #### 4 27156916 ####[address] [place] [address] CBC w/ Auto Diffon 1 Erythrocyte distribution width (RBC) [Ratio] 13.6 % Normal 10.9-14.2 [facility] Comment on above: Performed By: #### 2 091482, 2231184, 57893774, 3283056, 3542292, 7444855, 4620008, 09345685, 3533652, 4391655 ####[address] [place] [address] Hematocrit (Bld) [Volume fraction] 43.6 % Normal 37.7-49.0 [facility] Comment on above: Performed By: #### 2 164974, 1905674, 45410270, 5367591, 5058004, 6595474, 4716975, 38890302, 2331113, 2012469 ####[address] [address] Hemoglobin (Bld) [Mass/Vol] 14.8 g/dL Normal 13.5-17.5 [facility] Comment on above: Performed By: #### 2 807980, 5292848, 08046002, 0989093, 7687822, 7328039, 5298583, 69893750, 4537125, 1099114 ####[address] [place] [address] MCH (RBC) [Entitic mass] 30.5 pg Normal 27.0-34.0 [facility] Comment on above: Performed By: #### 2 215196, 9087110, 62601805, 5899932, 6737340, 9325226, 9934891, 27487748, 2010510, 2312830 ####[address] [place] [address] MCHC (RBC) [Mass/Vol] 33.8 g/dL Normal 31.4-36.0 [facility] Comment on above: Performed By: #### 2 268024, 2153438, 93134707, 4636196, 8185523, 3780243, 9714330, 90226388, 7670850, 1031138 ####[facility] [address] [place] [address] MCV (RBC) [Entitic vol] 90.2 fL Normal 80.0-100.0 [facility] Comment on above: Performed By: #### 2 334948, 6158390, 11216936, 7953002, 1400597, 4906239, 9145144, 14274413, 9295323, 6130072 ####[address] [place] [address] Platelet mean volume (Bld) [Entitic vol] 7.6 fL Normal 6.4-10.8 [facility] Comment on above: Performed By: #### 2 177728, 1938161, 72395604, 4673278, 4416382, 2624531, 4930994, 20446871, 4746472, 0148552 ####[address] [address] Platelets (Bld) [#/Vol] 157.0 E9/L Normal 150.0-500. 0 [facility] Comment on above: Performed By: #### 2 698687, 7345728, 95043875, 8893229, 4463966, 8957339, 2262289, 26751518, 4659594, 9503741 ####[address] [address] RBC (Bld) [#/Vol] 4.8 E12/L Normal 4.3-5.9 [facility] Comment on above: Performed By: #### 2 240596, 8179549, 05806476, 8075600, 4331776, 6505831, 8214652, 66901481, 5844035, 5317546 ####[address] [place] [address] WBC corrected for nucl RBC Auto (Bld) [#/Vol] 10.7 E9/L Normal 4.0-11.0 [facility] Comment on above: Performed By: #### 2 393192, 2087072, 55036139, 1829381, 0776273, 5130849, 4621158, 26378708, 6841000, 0994893 ####[facility] [address] [place] [address] CT Abdomen/Pelvis w/ Contras ton 11-24-2020 CT Abdomen/Pelvis w/ Contrast Normal [facility] CT Chest w/ Contraston 11-24 CT Chest w/ Contrast Normal [facility] CT Head or Brain w/o Contras ton 11-24-2020 CT Head or Brain w/o Contrast Normal [facility] CT Maxillofacial w/o Contras ton 11-24-2020 CT Maxillofacial w/o Contrast Normal [facility] CT Spine Cervical w/o Contra ston 11-24-2020 CT Spine Cervical w/o Contrast Normal [facility] Consent for Procedure/Surger yon 11-24-2020 Consent for Procedure/Surgery [id number]:127 Normal [facility] Consent for Treatmenton Consent for Treatment [id number]:127 Normal [facility] ED Note-Physicianon 11-25-19 21 ED Note-Physician Normal [facility] Comment on above: Result Comment: Elec tronically Signed By: Boubacar oFnseca DO\.br\Date and Time Signed: 11/24/20 20:48 EDT Emergency Release Uncrossmat ched Bloodon 11-24-2020 # of Units 1 Invalid Interpretation Code [facility] Comment on above: Performed By: #### 1 [id number] ####[facility] [address] [place] [address] Physician Notification Not Required; Compatible [facility] Comment on above: Performed By: #### 1 0960772 ####[address] [place] [address] Ethanolon 11-24-2020 Ethanol [Mass/Vol] mg/dL Normal <=7 [facility] Comment on above: Performed By: #### 2 [id number], [id number], [id number], [id number], [id number] ####[facility] [address] [place] [address] FFPon 11-24-2020 # of Units 2 units Invalid Interpretation Code [facility] Comment on above: Performed By: #### 1 [id number] ####[facility] [address] [place] [address] Date Required 11/24/2020 Invalid Interpretation Code [facility] Comment on above: Performed By: #### 1 [id number] ####[address] [address] Order to Transfuse 2 units Invalid Interpretation Code [facility] Comment on above: Result Comment: 2020 18:37 [id number] product ready and called to OR at 11/24/2020 18:37:47 EDT11/24/2020 18:37:49 EDT by cmk. Performed By: #### 1 [id number] ####[facility] [address] [place] [id number] Hep Func Panelon 11-24-2020 Albumin [Mass/Vol] 3.4 g/dL Normal 3.3-5.0 [facility] Comment on above: Performed By: #### 2 [id number], [id number], 4326300, 0930183, 4253595, 8070956, 64801842, 5304755, 8981956 ####[facility] [address] [place] [address] Albumin/Globulin (S) [Mass conc ratio] 1.4 Normal 1.1-2.2 [facility] Comment on above: Performed By: #### 2 896453, 9486653, 04355057, 2954797, 4261487, 5655393, 6676555, 95494305, 7886086, 8768597 ####[facility] [address] [place] [address] ALP [Catalytic activity/Vol] 52 Int._Unit/L Normal 21-98 [facility] Comment on above: Performed By: #### 2 402083, 4933899, 10779063, 9807187, 1600551, 7509169, 0804675, 45426989, 4582101, 3647122 ####[address] [address] ALT No additional P-5'-P [Catalytic activity/Vol] 181 Int._Unit/L High 6-46 [facility] Comment on above: Performed By: #### 2 076023, 5969123, 83185490, 3840725, 4186563, 2296661, 9031082, 05445898, 7459012, 9939784 ####[address] [address] AST [Catalytic activity/Vol] 191 Int._Unit/L High 5-43 [facility] Comment on above: Performed By: #### 2 559014, 9844682, 02869505, 8081567, 2701535, 2502940, 6272389, 11516157, 9971991, 2999436 ####[address] [address] Bilirubin [Mass/Vol] 0.9 mg/dL Normal 0.0-1.1 [facility] Comment on above: Performed By: #### 2 102033, 7726281, 05394824, 7000989, 1190684, 8712557, 4824337, 39725220, 1413012, 7361104 ####[address] [address] Bilirubin.direct [Mass/Vol] 0.2 mg/dL Normal 0.1-0.4 [facility] Comment on above: Performed By: #### 2 957226, 2440842, 98117809, 7653938, 6848963, 8077134, 6684348, 52415692, 0732950, 2475107 ####[facility] [address] [place] [address] Bilirubin.indirect [Mass or moles/Vol] 0.7 mg/dL Normal 0.1-0.9 [facility] Comment on above: Performed By: #### 2 996537, 5236711, 69406658, 1783000, 9464324, 9421734, 3291716, 10569371, 0762434, 0773552 ####[facility] [address] [place] [address] Globulin (S) [Mass/Vol] 2.4 g/dL Normal 1.4-4.0 [facility] Comment on above: Performed By: #### 2 473501, 8573988, 42560649, 5379737, 5001183, 8187327, 9578106, 89557195, 8003876, 3574673 ####[facility] [address] [place] [address] Protein [Mass/Vol] 5.8 g/dL Low 6.0-7.8 [facility] Comment on above: Performed By: #### 2 593973, 1015316, 10780190, 7908601, 7358196, 6423886, 3791893, 65797533, 3389861, 1273433 ####[facility] [address] [place] [address] Interdisciplinary Note - Soc ial Workeron 11-24-2020 Interdisciplinary Note - Government Relations Manager Normal [facility] Lactic Acidon 11-24-2020 Lactate [Mass/Vol] 2.9 mmol/L High 0.5-2.2 [facility] Comment on above: Performed By: #### 2 087560, 5356911, 53895628, 5192042, 5132442, 3576848, 5430719, 00378561, 5987457, 1345691 ####[facility] [address] [place] [address] Lipase Levelon 11-24-2020 Lipase [Catalytic activity/Vol] 127 U/L High 13-58 [facility] Comment on above: Performed By: #### 2 082489, 0389943, 26151303, 5444305, 9539451, 0775248, 7658157, 36989350, 8230623, 5136635 ####[facility] [address] [place] [address] Main OR Preoperative Recordo n 11-24-2020 Main OR Preoperative Record Normal [facility] Medication Listson Medication Lists [id number]:127 Normal [facility] PT & PTTon 11-24-2020 aPTT Coag (PPP) [Time] 21.1 second(s) Low 25.1-36.5 [facility] Comment on above: Result Comment: Hepa rin therapeutic range (represented by Anti-Factor Xa activity of 0.2 - 0.4 U/mL) corresponds to PTT of 56.6 - 109.0 sec. Performed By: #### 2 878115, 8368510, 89159190, 7959497, 0628114, 1519426, 8142054, 06079520, 1897923, 2046848 ####[facility] [address] [place] [address] INR Coag (PPP) [Relative time] 1.0 {INR} Invalid Interpretation Code [facility] Comment on above: Result Comment: INR results are specifically intended to assess patients stabilized on long-term Anticoagulation therapy suggested INR?s ?Less Intensive Anticoagulation? 2.0 ? 3.0Conventional Range 3.0 ? 4.5 Performed By: #### 2 281966, 8111555, 58098901, 3156297, 8716695, 7385547, 5677915, 84648722, 8176294, 8079644 ####[facility] [address] [place] [address] PT Coag (PPP) [Time] 11.3 second(s) Normal 10.2-12.9 [facility] Comment on above: Performed By: #### 2 297106, 5098960, 77885413, 6232063, 7971866, 6781189, 5139584, 53063965, 6726367, 0984277 ####[facility] [address] [place] [address] Pre-Arrival Noteon Pre-Arrival Note Normal [facility] RCOon 11-24-2020 # of Units 2 Invalid Interpretation Code [facility] Comment on above: Result Comment: 2020 17:56 [id number] product ready and called to Ed at 11/24/2020 17:56:35 EDT by cmk. Performed By: #### 1 [id number] ####[address] [place] [address] Date Required 11/24/20 Invalid Interpretation Code [facility] Comment on above: Performed By: #### 1 [id number] ####[place] [address] [facility] [place] [address] Product Type None Required Invalid Interpretation Code [facility] Comment on above: Performed By: #### 1 2363058 ####[facility] [address] [place] [address] # of Units 2 Invalid Interpretation Code [facility] Comment on above: Performed By: #### 1 3632247 ####[facility] [address] [place] [address] Date Required 11/24/2020 Invalid Interpretation Code [facility] Comment on above: Performed By: #### 1 4212781 ####[facility] [address] [place] [address] Product Type None Required Invalid Interpretation Code [facility] Comment on above: Performed By: #### 1 9021740 ####[address] [place] [address] Troponinon 11-24-2020 Troponin I.cardiac [Mass/Vol] 18.00 pg/mL Normal 15.90-38.4 0 [facility] Comment on above: Result Comment: The 95% CI (Confidence Interval) PPV (Positive Predictive Value) for myocardial infarction in females is 38 pg/mL, in males 51 pg/mL. The results should be used in conjunction with clinical conditions of myocardial infarction.(Access High Sensitivity Troponin I Instructions For Use, Ramez [place], January 2018) Performed By: #### 2 825061, 0341977, 50016906, 1177474, 1278430, 9188613, 5444233, 56140463, 6119249, 4875733 ####[facility] [address] [place] [address] UA With Cult Reflexon 2020 Bilirubin Ql (U) Negative Normal Negative [facility] Comment on above: Performed By: #### 1 9527431 ####[address] [address] Clarity (U) SL CLOUDY Abnormal Clear [facility] Comment on above: Performed By: #### 1 4649468 ####[address] [address] Color (U) YELLOW Normal Yellow [facility] Comment on above: Performed By: #### 1 9525987 ####[address] [address] Epithelial cells.squamous LM.HPF (Urine sed) [#/Area] 0-2 Normal 0-2 [facility] Comment on above: Performed By: #### 1 0691523 ####[address] [address] Glucose Test strip (U) [Mass/Vol] Negative Normal Negative [facility] Comment on above: Performed By: #### 1 8330557 ####[address] [address] Hemoglobin Ql (U) 2+ Abnormal Negative [facility] Comment on above: Performed By: #### 1 9862640 ####[address] [address] Ketones (U) [Mass/Vol] Negative Normal Negative [facility] Comment on above: Performed By: #### 1 7275881 ####[address] [place] [address] Kempner.plasma/Lit hium.RBC (Bld) [Mass ratio] 4-20 Normal 0-3 [facility] Comment on above: Performed By: #### 1 7391320 ####[address] [address] Nitrite Ql (U) Negative Normal Negative [facility] Comment on above: Performed By: #### 1 1955754 ####[place] [address] pH (U) 5.5 [pH] Invalid Interpretation Code 5.0-9.0 [facility] Comment on above: Performed By: #### 1 0128992 ####[place] [address] Protein (U) [Mass/Vol] Negative Normal Negative [facility] Comment on above: Performed By: #### 1 4267837 ####[place] [address] Specific gravity (U) [Rel density] <=1.005 Invalid Interpretation Code 1.005-1.03 0 [facility] Comment on above: Performed By: #### 1 8307043 ####[place] [address] Type of Urine collection method Mattson Normal [facility] Comment on above: Performed By: #### 1 5987506 ####[place] [address] Urobilinogen Qn (U) 0.2 {Rosalina'U}/dL Normal 0.0-1.0 [facility] Comment on above: Performed By: #### 1 9265768 ####[place] [address] WBC Auto Ql (U) Negative Normal Negative [facility] Comment on above: Performed By: #### 1 6161814 ####[address] [address] WBC LM.HPF (Urine sed) [#/Area] 0-5 Normal 0-5 [facility] Comment on above: Performed By: #### 1 0136820 ####[facility] [address] [place] [address] XR Chest Single Viewon 11-24 XR Chest Single View Normal [facility] eGFRon 11-24-2020 GFR/1.73 sq M.predicted among blacks MDRD (S/P/Bld) [Vol rate/Area] mL/min/{1.73_m2} Normal >=59 [facility] Comment on above: Order Comment: Order added by Discern Expert. Result Comment: eGFR is race adjusted. AA=. Performed By: #### 2 221136, 9091078, 47240703, 1295802, 8458576, 7949083, 4389587, 98090489, 3065052, 8558468 ####[facility] [address] [place] [address] GFR/1.73 sq M.predicted among non-blacks MDRD (S/P/Bld) [Vol rate/Area] mL/min/{1.73_m2} Normal >=59 [facility] Comment on above: Order Comment: Order added by Discern Expert. Result Comment: 3 Year Olds Preschool Teacher nik kidney disease could be indicated at eGFR's of less than 60 mL/min/1.73m2. Kidney failure is indicated at less than 15 mL/min/1.73m2. Performed By: #### 2 440025, 1311844, 02192380, 4150587, 7933645, 8895656, 6162793, 38764061, 7561912, 4122466 ####[facility] [address] [place] [address] Discharge Summaryon 03-29-20 Discharge Summary MR#: [id number] Zeinab sheehan of [facility] Pt. Name: Remington Barker Admitted: 03/17/2017 Discharged: 03/28/2017 Date of : 1955 Physician: Pop Dukes M.D. DISCHARGE SUMMARYPRIMARY DISCHARGE DIAGNOSES: Epilepsy with status epilepticus.SECONDARY DISCHARGE DIAGNOSES: Diabetes mellitus type 2, deafness,hypertension, coronary artery disease.PROCEDURES DONE: MRI of the brain, temporal lobe; MR C-spine withoutcontrast.CONSULTS: Neurology.HISTORY OF PRESENT ILLNESS AND HOSPITAL COURSE: A 61-year-old male withpast medical history of MR/DD, deafness, seizure. Presented in statusepilepticus, after found on ground outside home after being in the sun manyhours. Seizures, not controlled on Ativan and Keppra. Placed on Verseddrip after intubation. Was monitored on LTME. Lumbar puncture on 03/18,CSF resulted negative. Seizures stopped on the morning of 03/[address] chest 03/19 showed infiltrate concerning forpneumonia, initially on Zosyn, switch to erythromycin on 03/20. Completed5 days of antibiotics. Versed wean completed on 03/22. Precedex for ventcompliance was administered. X-ray on 03/17 showed infiltrate.Extubated on 03/24, maintaining O2 sat on room air. Past swallow study.The patient was transferred from the ICU to the Med/Surg floor. Keppra wascontinued and serum level measured at 19. Valproate was switched from IVto oral and continued. Valproate level on 03/20 was 72. Sliding scaleinsulin was administered for diabetes mellitus type 2. Diabetes mellitustype 2 remained stable. The patient was deaf and used a sign languageinterpreter, which was difficult. The translator and interpreter indicated that thepatient is fixated on his job at [employer]. He goes back to [facility] discussing discharge planning. The prognosis and discharge plan werediscussed with the brother and close family friend who were present in [facility]. The patient was discharged to fdc facility.DISCHARGE MEDICATIONS: Following home medications were continued:Carbamazepine 200 mg tablet, 1 tablet oral every 12 hours, carvedilol 6.25mg tablet 1 tablet oral 2 times per day, dicyclomine oral 20 mg every 6hours as needed, divalproex oral 500 mg 1 tablet oral 5 times per day,metformin 500 mg tablet 1 tablet oral daily, pravastatin 80 mg tablet 1tablet oral daily.The following new medications were begun: Levetiracetam 750 mg tablet 1tablet oral 2 times per day, valproic acid 250 mg capsule, 500 mg oralevery 8 hours.The patient was discharged in stable condition. The patient was dischargedto a fdc facility. Instructions to primary care physician.Please follow up within 1 week of discharge. Please review the patient'sdiabetic medication regimen and please follow with the patient's seizuredisorder and oral anti-seizure medication regimen.Electronically Signed by:Pop Dukes M.D. 04/11/2017 09:07 A Pop Dukes M.D...Date Dict: 03/28/2017/07:39 P/Symone Colunga Trans: 03/29/2017 03:44 A/Dennis_JN:[id number]: Gasper Thurman D.O. [address] [place] [phone] Normal [facility] BASIC METABOLIC PANELon 10-0 Calcium 8.7 mg/dL Normal 8.6-10.3 [facility] Comment on above: Order Comment: Other , right weakness left gaze pref Performed By: #### 1 69, 130[address] ####[facility] Chloride 103 mmol/L Normal 98-107 [facility] Comment on above: Order Comment: Other , right weakness left gaze pref Performed By: #### 1 0070, 8[address] ####[facility] [place] [address], [facility] CO2 27 mmol/L Normal 21-31 [facility] Comment on above: Order Comment: Other , right weakness left gaze pref Performed By: #### 1 69, 944[address] ####[facility] [place] [address], [facility] Creatinine 0.97 mg/dL Normal 0.70-1.30 [facility] Comment on above: Order Comment: Other , right weakness left gaze pref Performed By: #### 1 69, [address] ####[facility] eGFR (black) mL/min/{1.73_m2} Normal >60 [facility] Comment on above: Order Comment: Other , right weakness left gaze pref Performed By: #### 1 69, [address] ####[facility] eGFR (non-black) mL/min/{1.73_m2} Normal >60 Th e [facility] Comment on above: Order Comment: Other , right weakness left gaze pref Performed By: #### 1 69, [address] ####[facility] Glucose mass conc 161 mg/dL High 70-100 [facility] Comment on above: Order Comment: Other , right weakness left gaze pref Performed By: #### 1 69, [address] ####[facility] [place] [address], [facility] Potassium molar conc 3.8 mmol/L Normal 3.5-5.1 [facility] Comment on above: Order Comment: Other , right weakness left gaze pref Performed By: #### 1 69, 589[address] ####[facility] [place] [address], [facility] Sodium 139 mmol/L Normal 136-145 [facility] Comment on above: Order Comment: Other , right weakness left gaze pref Performed By: #### 1 69, [address] ####[facility] Urea nitrogen 27 mg/dL High 7-25 [facility] Comment on above: Order Comment: Other , right weakness left gaze pref Performed By: #### 1 69, [address] ####[facility] CBC COMPLETE BLOOD COUNTon 1 Erythrocyte distribution width Auto Ratio (RBC) 13.4 % Normal 11.5-16.9 [facility] Comment on above: Order Comment: Other , right weakness left gaze pref Performed By: #### 5 0608 ####[facility] Erythrocytes (RBC) 4.43 mill/mm3 Normal 4.30-5.90 [facility] Comment on above: Order Comment: Other , right weakness left gaze pref Performed By: #### 5 0608 ####[facility] Hematocrit (HCT) 39.9 % Normal 39.0-55.0 [facility] Comment on above: Order Comment: Other , right weakness left gaze pref Performed By: #### 5 0608 ####[facility] Hemoglobin mass conc (Bld) 13.1 g/dL Low 13.9-16.3 [facility] Comment on above: Order Comment: Other , right weakness left gaze pref Performed By: #### 5 0608 ####[facility] MCH 29.5 pg Normal 24.0-32.0 [facility] Comment on above: Order Comment: Other , right weakness left gaze pref Performed By: #### 5 0608 ####[facility] MCHC mass conc (RBC) 32.7 g/dL Normal 32.0-36.0 [facility] Comment on above: Order Comment: Other , right weakness left gaze pref Performed By: #### 5 0608 ####[facility] [place] [address], [facility] MCV 90.1 fL Normal 80.0-100.0 [facility] Comment on above: Order Comment: Other , right weakness left gaze pref Performed By: #### 5 0608 ####[facility] [place] [address], [facility] PLAT CNT 204 Thou/mm3 Normal 100-400 [facility] Comment on above: Order Comment: Other , right weakness left gaze pref Performed By: #### 5 0608 ####[facility] [place] [address], [facility] WBC (Leukocytes) 5.1 Thou/mm3 Normal 4.0-10.0 [facility] Comment on above: Order Comment: Other , right weakness left gaze pref Performed By: #### 5 0608 ####[facility] [place] [address], [facility] MAGNESIUM BLOODon 03-28-2017 Magnesium 2.2 mg/dL Normal 1.9-2.7 [facility] Comment on above: Order Comment: Other , right weakness left gaze pref Performed By: #### 1 0070, 93672 ####[facility] [place] [address], [facility] POC GLUCOSE LABon 03-28-2017 Glucose mass conc 248 mg/dL High 70-100 [facility] Comment on above: Performed By: #### 8 5499 ####[facility] [place] [address], [place] Glucose mass conc 250 mg/dL High 70-100 [facility] Comment on above: Performed By: #### 8 5499 ####[facility] [place] [address], [place] Glucose mass conc 155 mg/dL High 70-100 [facility] Comment on above: Performed By: #### 8 5499 ####[facility] [place] [address], [place] Glucose mass conc 160 mg/dL High 70-100 [facility] Comment on above: Performed By: #### 8 5499 ####[facility] BASIC METABOLIC PANELon 10-0 Calcium 9.0 mg/dL Normal 8.6-10.3 [facility] Comment on above: Order Comment: Other , right weakness left gaze pref Performed By: #### 0 0071, 55879 ####[facility] [place] [address], [facility] Chloride 101 mmol/L Normal 98-107 [facility] Comment on above: Order Comment: Other , right weakness left gaze pref Performed By: #### 0 0071, 88266 ####[facility] [place] [address], [facility] CO2 26 mmol/L Normal 21-31 [facility] Comment on above: Order Comment: Other , right weakness left gaze pref Performed By: #### 0 0071, 73029 ####[facility] Creatinine 0.93 mg/dL Normal 0.70-1.30 [facility] Comment on above: Order Comment: Other , right weakness left gaze pref Performed By: #### 0 0071, 07041 ####[facility] eGFR (black) mL/min/{1.73_m2} Normal >60 [facility] Comment on above: Order Comment: Other , right weakness left gaze pref Performed By: #### 0 0071, 15309 ####[facility] [place] [address], [facility] eGFR (non-black) mL/min/{1.73_m2} Normal >60 Th e [facility] Comment on above: Order Comment: Other , right weakness left gaze pref Performed By: #### 0 0071, 93597 ####[facility] [place] [address], [facility] Glucose mass conc 178 mg/dL High 70-100 [facility] Comment on above: Order Comment: Other , right weakness left gaze pref Performed By: #### 0 0071, 54531 ####[facility] [place] [address], [facility] Potassium molar conc 3.8 mmol/L Normal 3.5-5.1 [facility] Comment on above: Order Comment: Other , right weakness left gaze pref Performed By: #### 0 0071, 92789 ####[facility] [place] [address], [facility] Sodium 138 mmol/L Normal 136-145 [facility] Comment on above: Order Comment: Other , right weakness left gaze pref Performed By: #### 0 0071, 95164 ####[facility] [place] [address], [facility] Urea nitrogen 27 mg/dL High 7-25 [facility] Comment on above: Order Comment: Other , right weakness left gaze pref Performed By: #### 0 0071, 40416 ####[facility] CBC COMPLETE BLOOD COUNTon 1 Erythrocyte distribution width Auto Ratio (RBC) 12.9 % Normal 11.5-16.9 [facility] Comment on above: Order Comment: Other , right weakness left gaze pref Performed By: #### 5 0608 ####[facility] [place] [address], [facility] Erythrocytes (RBC) 4.45 mill/mm3 Normal 4.30-5.90 [facility] Comment on above: Order Comment: Other , right weakness left gaze pref Performed By: #### 5 0608 ####[facility] [place] [address], [facility] Hematocrit (HCT) 40.0 % Normal 39.0-55.0 [facility] Comment on above: Order Comment: Other , right weakness left gaze pref Performed By: #### 5 0608 ####[facility] [facility].[address] Hemoglobin mass conc (Bld) 13.3 g/dL Low 13.9-16.3 [facility] Comment on above: Order Comment: Other , right weakness left gaze pref Performed By: #### 5 0608 ####[facility] [facility].[address] MCH 29.9 pg Normal 24.0-32.0 [facility] Comment on above: Order Comment: Other , right weakness left gaze pref Performed By: #### 5 0608 ####[facility] [facility].[address] MCHC mass conc (RBC) 33.3 g/dL Normal 32.0-36.0 [facility] Comment on above: Order Comment: Other , right weakness left gaze pref Performed By: #### 5 0608 ####[facility] [facility].[address] MCV 89.8 fL Normal 80.0-100.0 [facility] Comment on above: Order Comment: Other , right weakness left gaze pref Performed By: #### 5 0608 ####[facility] [place] [place] [address], [facility] PLAT CNT 224 Thou/mm3 Normal 100-400 [facility] Comment on above: Order Comment: Other , right weakness left gaze pref Performed By: #### 5 0608 ####[facility] [facility].[address] WBC (Leukocytes) 7.0 Thou/mm3 Normal 4.0-10.0 [facility] Comment on above: Order Comment: Other , right weakness left gaze pref Performed By: #### 5 0608 ####[facility] [place] [address], [facility] MAGNESIUM BLOODon 03-27-2017 Magnesium 2.0 mg/dL Normal 1.9-2.7 [facility] Comment on above: Order Comment: Other , right weakness left gaze pref Performed By: #### 0 0071, 69062 ####[facility] [place] [address], [facility] POC GLUCOSE LABon 03-27-2017 Glucose mass conc 153 mg/dL High 70-100 [facility] Comment on above: Performed By: #### 8 5499 ####[facility] [place] [address], [facility] Glucose mass conc 203 mg/dL High 70-100 [facility] Comment on above: Performed By: #### 8 5499 ####[facility] [place] [address], [facility] Glucose mass conc 145 mg/dL High 70-100 [facility] Comment on above: Performed By: #### 8 5499 ####[facility] [place] [address], [facility] Glucose mass conc 175 mg/dL High 70-100 [facility] Comment on above: Performed By: #### 8 5499 ####[facility] [facility] [facility] BASIC METABOLIC PANELon Calcium 9.1 mg/dL Normal 8.6-10.3 [facility] Comment on above: Order Comment: Other , right weakness left gaze pref Performed By: #### 0 0071 ####[facility] [place] [address], [facility] Chloride 101 mmol/L Normal 98-107 [facility] Comment on above: Order Comment: Other , right weakness left gaze pref Performed By: #### 0 0071 ####[facility] [place] [address], [facility] CO2 25 mmol/L Normal 21-31 [facility] Comment on above: Order Comment: Other , right weakness left gaze pref Performed By: #### 0 0071 ####[place] [address] [address] Creatinine 0.86 mg/dL Normal 0.70-1.30 [facility] Comment on above: Order Comment: Other , right weakness left gaze pref Performed By: #### 0 0071 ####[place] [address] [facility].[address] eGFR (black) mL/min/{1.73_m2} Normal >60 [facility] Comment on above: Order Comment: Other , right weakness left gaze pref Performed By: #### 0 0071 ####[address] eGFR (non-black) mL/min/{1.73_m2} Normal >60 Th e [facility] Comment on above: Order Comment: Other , right weakness left gaze pref Performed By: #### 0 0071 ####[place] [address] [facility].[address] Glucose mass conc 134 mg/dL High 70-100 [facility] Comment on above: Order Comment: Other , right weakness left gaze pref Performed By: #### 0 0071 ####[place] [address] [facility] [place] [address], [facility] Potassium molar conc 3.8 mmol/L Normal 3.5-5.1 [facility] Comment on above: Order Comment: Other , right weakness left gaze pref Performed By: #### 0 0071 ####[place] [address] [facility] [place] [address], [facility] Sodium 139 mmol/L Normal 136-145 [facility] Comment on above: Order Comment: Other , right weakness left gaze pref Performed By: #### 0 0071 ####[facility] Urea nitrogen 26 mg/dL High 7-25 [facility] Comment on above: Order Comment: Other , right weakness left gaze pref Performed By: #### 0 1 ####[facility] [place] [address], [facility] CBC W/DIFFon 03-26-2017 Basophils Auto #/vol (Bld) 0.1 % Normal 0.0-2.0 [facility] Comment on above: Order Comment: Other , right weakness left gaze pref Performed By: #### 102 ####[facility] Eosinophils/100 leukocytes 1.0 % Normal 0.0-5.0 [facility] Comment on above: Order Comment: Other , right weakness left gaze pref Performed By: #### 102 ####[facility] Erythrocyte distribution width Auto Ratio (RBC) 13.2 % Normal 11.5-16.9 [facility] Comment on above: Order Comment: Other , right weakness left gaze pref Performed By: #### 102 ####[facility] Erythrocytes (RBC) 4.70 mill/mm3 Normal 4.30-5.90 [facility] Comment on above: Order Comment: Other , right weakness left gaze pref Performed By: #### 5 102 ####[facility] Hematocrit (HCT) 42.4 % Normal 39.0-55.0 [facility] Comment on above: Order Comment: Other , right weakness left gaze pref Performed By: #### 102 ####[facility] Hemoglobin mass conc (Bld) 14.1 g/dL Normal 13.9-16.3 [facility] Comment on above: Order Comment: Other , right weakness left gaze pref Performed By: #### 5 0103 ####[facility] Lymphocytes/100 leukocytes 11.7 % Low 20.0-40.0 [facility] Comment on above: Order Comment: Other , right weakness left gaze pref Performed By: #### 5 0103 ####[facility] [facility].[address] MCH 30.0 pg Normal 24.0-32.0 [facility] Comment on above: Order Comment: Other , right weakness left gaze pref Performed By: #### 5 3 ####[facility] [facility].[address] MCHC mass conc (RBC) 33.3 g/dL Normal 32.0-36.0 [facility] Comment on above: Order Comment: Other , right weakness left gaze pref Performed By: #### 5 0103 ####[facility] [facility].[address] MCV 90.1 fL Normal 80.0-100.0 [facility] Comment on above: Order Comment: Other , right weakness left gaze pref Performed By: #### 5 0103 ####[facility] [facility].[address] METHOD Normal RBC Morphology Normal [facility] Comment on above: Order Comment: Other , right weakness left gaze pref Performed By: #### 5 3 ####[facility] [facility].[address] MONOS 12.4 % High 2-8 [facility] Comment on above: Order Comment: Other , right weakness left gaze pref Performed By: #### 5 3 ####[facility] [place] [address], [facility] Neutrophils/100 leukocytes 74.8 % High 50-70 [facility] Comment on above: Order Comment: Other , right weakness left gaze pref Performed By: #### 5 0103 ####[facility] [place] [address], [facility] PLAT CNT 202 Thou/mm3 Normal 100-400 [facility] Comment on above: Order Comment: Other , right weakness left gaze pref Performed By: #### 5 0103 ####[facility] [place] [address], [facility] WBC (Leukocytes) 8.6 Thou/mm3 Normal 4.0-10.0 [facility] Comment on above: Order Comment: Other , right weakness left gaze pref Performed By: #### 5 0103 ####[facility] [place] [address], [facility] POC GLUCOSE LABon 03-26-2017 Glucose mass conc 184 mg/dL High 70-100 [facility] Comment on above: Performed By: #### 8 5499 ####[facility] [place] [address], [facility] Glucose mass conc 211 mg/dL High 70-100 [facility] Comment on above: Performed By: #### 8 5499 ####[facility] [place] [address], [facility] Glucose mass conc 126 mg/dL High 70-100 [facility] Comment on above: Performed By: #### 8 5499 ####[facility] [place] [address], [facility] Glucose mass conc 161 mg/dL High 70-100 [facility] Comment on above: Performed By: #### 8 5499 ####[facility] [place] [address], [facility] CBC W/DIFFon 03-25-2017 Basophils Auto #/vol (Bld) 0.2 % Normal 0.0-2.0 [facility] Comment on above: Order Comment: Other , right weakness left gaze pref Performed By: #### 5 0103 ####[facility] [place] [address], [facility] Eosinophils/100 leukocytes 0.5 % Normal 0.0-5.0 [facility] Comment on above: Order Comment: Other , right weakness left gaze pref Performed By: #### 5 3 ####[facility] Erythrocyte distribution width Auto Ratio (RBC) 13.0 % Normal 11.5-16.9 [facility] Comment on above: Order Comment: Other , right weakness left gaze pref Performed By: #### 5 3 ####[facility] Erythrocytes (RBC) 4.24 mill/mm3 Low 4.30-5.90 [facility] Comment on above: Order Comment: Other , right weakness left gaze pref Performed By: #### 5 3 ####[facility] Hematocrit (HCT) 38.1 % Low 39.0-55.0 [facility] Comment on above: Order Comment: Other , right weakness left gaze pref Performed By: #### 5 3 ####[facility] Hemoglobin mass conc (Bld) 12.9 g/dL Low 13.9-16.3 [facility] Comment on above: Order Comment: Other , right weakness left gaze pref Performed By: #### 5 3 ####[facility] [place] [address], [facility] Lymphocytes/100 leukocytes 10.9 % Low 20.0-40.0 [facility] Comment on above: Order Comment: Other , right weakness left gaze pref Performed By: #### 5 0103 ####[facility] MCH 30.3 pg Normal 24.0-32.0 [facility] Comment on above: Order Comment: Other , right weakness left gaze pref Performed By: #### 5 0103 ####[facility] MCHC mass conc (RBC) 33.7 g/dL Normal 32.0-36.0 [facility] Comment on above: Order Comment: Other , right weakness left gaze pref Performed By: #### 5 0103 ####[facility] MCV 89.9 fL Normal 80.0-100.0 [facility] Comment on above: Order Comment: Other , right weakness left gaze pref Performed By: #### 5 3 ####[facility] METHOD Normal RBC Morphology Normal [facility] Comment on above: Order Comment: Other , right weakness left gaze pref Performed By: #### 5 0103 ####[facility] MONOS 13.3 % High 2-8 [facility] Comment on above: Order Comment: Other , right weakness left gaze pref Performed By: #### 5 0103 ####[facility] [place] [address], [facility] Neutrophils/100 leukocytes 75.1 % High 50-70 [facility] Comment on above: Order Comment: Other , right weakness left gaze pref Performed By: #### 5 3 ####[facility] [place] [address], [facility] PLAT CNT 154 Thou/mm3 Normal 100-400 [facility] Comment on above: Order Comment: Other , right weakness left gaze pref Performed By: #### 5 0103 ####[facility] WBC (Leukocytes) 10.8 Thou/mm3 High 4.0-10.0 [facility] Comment on above: Order Comment: Other , right weakness left gaze pref Performed By: #### 5 0103 ####[facility] COMP METABOLIC PANELon 03-25 Alanine aminotransferase (ALT) 40 U/L Normal 7-52 [facility] Comment on above: Order Comment: Other , right weakness left gaze pref Performed By: #### 4 1000, 16904, 91179 ####[facility] [facility] Albumin 3.1 g/dL Low 3.5-5.7 [facility] Comment on above: Order Comment: Other , right weakness left gaze pref Performed By: #### 4 1000, 49532, 22735 ####[facility] ALKALINE PHOSPH 40 IU/L Normal 34-104 [facility] Comment on above: Order Comment: Other , right weakness left gaze pref Performed By: #### 4 1000, 54830, 96582 ####[facility] Aspartate aminotransferase (AST) 38 U/L Normal 13-39 [facility] Comment on above: Order Comment: Other , right weakness left gaze pref Performed By: #### 4 1000, 51541, 74271 ####[facility] Bilirubin (total) 0.7 mg/dL Normal 0.3-1.0 [facility] Comment on above: Order Comment: Other , right weakness left gaze pref Performed By: #### 4 1000, 70995, 66461 ####[facility] [place] [address], [facility] Calcium 8.7 mg/dL Normal 8.6-10.3 [facility] Comment on above: Order Comment: Other , right weakness left gaze pref Performed By: #### 4 1000, 57717, 83731 ####[facility] [place] [address], [facility] Chloride 102 mmol/L Normal 98-107 [facility] Comment on above: Order Comment: Other , right weakness left gaze pref Performed By: #### 4 1000, 94313, 86013 ####[facility] [place] [address], [facility] CO2 27 mmol/L Normal 21-31 [facility] Comment on above: Order Comment: Other , right weakness left gaze pref Performed By: #### 4 1000, 34599, 21019 ####[facility] [place] [address], [facility] Creatinine 0.85 mg/dL Normal 0.70-1.30 [facility] Comment on above: Order Comment: Other , right weakness left gaze pref Performed By: #### 4 1000, 84255, 25170 ####[facility] [place] [address], [facility] eGFR (black) mL/min/{1.73_m2} Normal >60 [facility] Comment on above: Order Comment: Other , right weakness left gaze pref Performed By: #### 4 1000, 51214, 25276 ####[facility] [place] [address], [facility] eGFR (non-black) mL/min/{1.73_m2} Normal >60 Th e [facility] Comment on above: Order Comment: Other , right weakness left gaze pref Performed By: #### 4 1000, 20389, 09425 ####[facility] [place] [address], [facility] Glucose mass conc 134 mg/dL High 70-100 [facility] Comment on above: Order Comment: Other , right weakness left gaze pref Performed By: #### 4 1000, 48281, 93862 ####[facility] [id number], [facility] Potassium molar conc 4.0 mmol/L Normal 3.5-5.1 [facility] Comment on above: Order Comment: Other , right weakness left gaze pref Performed By: #### 4 1000, 54897, 22919 ####[facility] [place] [address], [facility] Protein 6.0 g/dL Normal 6.0-8.3 [facility] Comment on above: Order Comment: Other , right weakness left gaze pref Performed By: #### 4 1000, 37689, 66932 ####[facility] [place] [address], [facility] Sodium 138 mmol/L Normal 136-145 [facility] Comment on above: Order Comment: Other , right weakness left gaze pref Performed By: #### 4 1000, 00027, 95458 ####[facility] [place] [address], [facility] Urea nitrogen 21 mg/dL Normal 7-25 [facility] Comment on above: Order Comment: Other , right weakness left gaze pref Performed By: #### 4 1000, 46326, 71028 ####[facility] [place] [address], [facility] KEPPRA ILon 03-25-2017 IL Normal [facility] Comment on above: Order Comment: Other , right weakness left gaze pref KEPPRA 19 ug/mL Normal [facility] Comment on above: Order Comment: Other , right weakness left gaze pref Result Comment: A re ference range for Keppra has not been well established. The proposed therapeutic range for seizure control is 6-46 ug/mL. Pharmacokinetics of Keppra are affected by renal function. The relationship between serum concentrations and toxicity is not known. MAGNESIUM BLOODon 03-25-2017 Magnesium 2.0 mg/dL Normal 1.9-2.7 [facility] Comment on above: Order Comment: Other , right weakness left gaze pref Performed By: #### 4 1000, 10843, 24148 ####[facility] [place] [address], [facility] PHOSPHORUS BLOODon 7 Phosphate 2.7 mg/dL Normal 2.5-5.0 [facility] Comment on above: Order Comment: Other , right weakness left gaze pref Performed By: #### 4 1000, 78992, 76339 ####[facility] [place] [address], [facility] POC GLUCOSE LABon 03-25-2017 Glucose mass conc 147 mg/dL High 70-100 [facility] Comment on above: Performed By: #### 8 5529 ####[facility] [place] [address], [place] Glucose mass conc 132 mg/dL High 70-100 [facility] Comment on above: Performed By: #### 8 5499 ####[facility] [place] [address], [facility] ARTERIAL BLOOD GAS WITH ICAo n 03-24-2017 BASE EXCESS 3 mmol/L High -2-2 [facility] Comment on above: Performed By: #### 8 9261 ####[facility] [place] [address], [place] Bicarbonate (HCO3) 26 mmol/L Normal 23-27 [facility] Comment on above: Performed By: #### 8 6941 ####[facility] [place] [address], [facility] CO2 37 mmHg Normal 35-45 [facility] Comment on above: Performed By: #### 8 0491 ####[facility] [place] [address], [facility] DELIVERY SYSTEMS MV Normal [facility] Comment on above: Performed By: #### 8 4511 ####[facility] [place] [address], [facility] FIO2 40 % Normal 21-100 [facility] Comment on above: Performed By: #### 8 4511 ####[facility] [place] [address], [facility] IONIZED CALCIUM 1.16 mmol/L Normal 1.13-1.32 [facility] Comment on above: Performed By: #### 8 4511 ####[facility] [place] [address], [facility] MIN VOLUME 8.5 Normal [facility] Comment on above: Performed By: #### 8 4511 ####[facility] [place] [address], [facility] MODALITY AC Normal [facility] Comment on above: Performed By: #### 8 4511 ####[facility] [place] [address], [facility] O2 saturation 94.6 % Normal 94.0-97.0 [facility] Comment on above: Performed By: #### 8 4511 ####[facility] [place] [address], [facility] Oxygen in arterial blood 96 mm[Hg] Normal 75-100 [facility] Comment on above: Performed By: #### 8 4511 ####[facility] [place] [address], [place] PEEP 5.0 CMH20 Normal [facility] Comment on above: Performed By: #### 8 4511 ####[facility] [place] [address], [place] PF RATIO 240 mmHg Normal 50-400 [facility] Comment on above: Performed By: #### 8 4511 ####[facility] pH of blood 7.46 [pH] High 7.35-7.45 [facility] Comment on above: Performed By: #### 8 4511 ####[facility] Respiratory rate 14 /min Normal [facility] Comment on above: Performed By: #### 8 4511 ####[facility] TIDAL VOLUME (VT) CC 500 Normal [facility] Comment on above: Performed By: #### 8 4511 ####[facility] [facility].[address] CBC W/DIFFon 03-24-2017 Basophils Auto #/vol (Bld) 0.1 % Normal 0.0-2.0 [facility] Comment on above: Order Comment: Other , right weakness left gaze pref Performed By: #### 5 0103 ####[facility] [facility].[address] Eosinophils/100 leukocytes 1.0 % Normal 0.0-5.0 [facility] Comment on above: Order Comment: Other , right weakness left gaze pref Performed By: #### 5 0103 ####[facility] Erythrocyte distribution width Auto Ratio (RBC) 13.5 % Normal 11.5-16.9 [facility] Comment on above: Order Comment: Other , right weakness left gaze pref Performed By: #### 5 0103 ####[facility] [facility] Erythrocytes (RBC) 4.30 mill/mm3 Normal 4.30-5.90 [facility] Comment on above: Order Comment: Other , right weakness left gaze pref Performed By: #### 5 3 ####[facility] Hematocrit (HCT) 39.0 % Normal 39.0-55.0 [facility] Comment on above: Order Comment: Other , right weakness left gaze pref Performed By: #### 5 3 ####[facility] Hemoglobin mass conc (Bld) 12.8 g/dL Low 13.9-16.3 [facility] Comment on above: Order Comment: Other , right weakness left gaze pref Performed By: #### 5 102 ####[facility] Lymphocytes/100 leukocytes 11.1 % Low 20.0-40.0 [facility] Comment on above: Order Comment: Other , right weakness left gaze pref Performed By: #### 5 102 ####[facility] MCH 29.9 pg Normal 24.0-32.0 [facility] Comment on above: Order Comment: Other , right weakness left gaze pref Performed By: #### 102 ####[facility] [facility].[address] MCHC mass conc (RBC) 32.9 g/dL Normal 32.0-36.0 [facility] Comment on above: Order Comment: Other , right weakness left gaze pref Performed By: #### 5 3 ####[facility] MCV 90.7 fL Normal 80.0-100.0 [facility] Comment on above: Order Comment: Other , right weakness left gaze pref Performed By: #### 5 3 ####[facility] [place] [address], [facility] METHOD Normal RBC Morphology Normal [facility] Comment on above: Order Comment: Other , right weakness left gaze pref Performed By: #### 5 0103 ####[facility] [place] [address], [facility] MONOS 11.7 % High 2-8 [facility] Comment on above: Order Comment: Other , right weakness left gaze pref Performed By: #### 5 0103 ####[facility] [place] [address], [facility] [facility] Neutrophils/100 leukocytes 76.1 % High 50-70 [facility] Comment on above: Order Comment: Other , right weakness left gaze pref Performed By: #### 5 0103 ####[facility] [place] [address], [facility] PLAT CNT 133 Thou/mm3 Normal 100-400 [facility] Comment on above: Order Comment: Other , right weakness left gaze pref Performed By: #### 5 0103 ####[facility] [place] [address], [facility] WBC (Leukocytes) 9.2 Thou/mm3 Normal 4.0-10.0 [facility] Comment on above: Order Comment: Other , right weakness left gaze pref Performed By: #### 5 3 ####[facility] [place] [address], [facility] COMP METABOLIC PANELon 03-24 Alanine aminotransferase (ALT) 48 U/L Normal 7-52 [facility] Comment on above: Order Comment: Other , right weakness left gaze pref Performed By: #### 0 0121, 62737, 67590 ####[facility] [place] [address], [facility] Albumin 3.2 g/dL Low 3.5-5.7 [facility] Comment on above: Order Comment: Other , right weakness left gaze pref Performed By: #### 0 0121, 78762, 63556 ####[facility] ALKALINE PHOSPH 40 IU/L Normal 34-104 [facility] Comment on above: Order Comment: Other , right weakness left gaze pref Performed By: #### 0 0121, 52589, 05832 ####[facility] Aspartate aminotransferase (AST) 33 U/L Normal 13-39 [facility] Comment on above: Order Comment: Other , right weakness left gaze pref Performed By: #### 0 0121, 93561, 33927 ####[facility] Bilirubin (total) 0.6 mg/dL Normal 0.3-1.0 [facility] Comment on above: Order Comment: Other , right weakness left gaze pref Performed By: #### 0 0121, 55555, 72084 ####[facility] [place] [address], [facility] Calcium 8.7 mg/dL Normal 8.6-10.3 [facility] Comment on above: Order Comment: Other , right weakness left gaze pref Performed By: #### 0 0121, 56247, 02403 ####[facility] [place] [address], [facility] Chloride 104 mmol/L Normal 98-107 [facility] Comment on above: Order Comment: Other , right weakness left gaze pref Performed By: #### 0 0121, 27070, 55910 ####[facility] [place] [address], [facility] CO2 26 mmol/L Normal 21-31 [facility] Comment on above: Order Comment: Other , right weakness left gaze pref Performed By: #### 0 0121, 87262, 54695 ####[facility] [place] [address], [facility] Creatinine 0.80 mg/dL Normal 0.70-1.30 [facility] Comment on above: Order Comment: Other , right weakness left gaze pref Performed By: #### 0 0121, 54962, 19126 ####[facility] [place] [address], [facility] eGFR (black) mL/min/{1.73_m2} Normal >60 [facility] Comment on above: Order Comment: Other , right weakness left gaze pref Performed By: #### 0 0121, 40403, 15134 ####[facility] [place] [address], [facility] eGFR (non-black) mL/min/{1.73_m2} Normal >60 Th e [facility] Comment on above: Order Comment: Other , right weakness left gaze pref Performed By: #### 0 0121, 06758, 89848 ####[facility] [place] [address], [facility] Glucose mass conc 189 mg/dL High 70-100 [facility] Comment on above: Order Comment: Other , right weakness left gaze pref Performed By: #### 0 0121, 88866, 72930 ####[facility] [place] [address], [facility] Potassium molar conc 4.5 mmol/L Normal 3.5-5.1 [facility] Comment on above: Order Comment: Other , right weakness left gaze pref Performed By: #### 0 0121, 38519, 00176 ####[facility] [place] [address], [facility] Protein 6.1 g/dL Normal 6.0-8.3 [facility] Comment on above: Order Comment: Other , right weakness left gaze pref Performed By: #### 0 0121, 39275, 19576 ####[facility] [place] [address], [facility] Sodium 138 mmol/L Normal 136-145 [facility] Comment on above: Order Comment: Other , right weakness left gaze pref Performed By: #### 0 0121, 86863, 38755 ####[facility] [place] [address], [facility] Urea nitrogen 21 mg/dL Normal 7-25 [facility] Comment on above: Order Comment: Other , right weakness left gaze pref Performed By: #### 0 0121, 51737, 75490 ####[facility] [place] [address], [facility] MAGNESIUM BLOODon 03-24-2017 Magnesium 2.1 mg/dL Normal 1.9-2.7 [facility] Comment on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 mL/min/{1.73_m2} Normal >60 [facility] Comment on above: Order Comment: No: D o not add to previous draw Performed By: #### 1 0, 12959, 64333 ####[facility] [place] [address], [facility] eGFR (non-black) mL/min/{1.73_m2} Normal >60 Th e [facility] Comment on above: Order Comment: No: D o not add to previous draw Performed By: #### 1 0, 94487, 10392 ####[facility] [place] [address], [facility] Glucose mass conc 187 mg/dL High 70-100 [facility] Comment on above: Order Comment: No: D o not add to previous draw Performed By: #### 1 0, 41512, 66162 ####[facility] [place] [address], [facility] Potassium molar conc 4.0 mmol/L Normal 3.5-5.1 [facility] Comment on above: Order Comment: No: D o not add to previous draw Performed By: #### 1 0, 32120, 85254 ####[facility] [place] [address], [facility] Sodium 141 mmol/L Normal 136-145 [facility] Comment on above: Order Comment: No: D o not add to previous draw Performed By: #### 1 0, 02109, 37955 ####[facility] [place] [address], [facility] Urea nitrogen 20 mg/dL Normal 7-25 [facility] Comment on above: Order Comment: No: D o not add to previous draw Performed By: #### 1 0, 45194, 14777 ####[facility] CBC W/DIFFon 03-22-2017 Basophils Auto #/vol (Bld) 0.0 % Normal 0.0-2.0 [facility] Comment on above: Order Comment: No: D o not add to previous draw Performed By: #### 5 0103 ####[facility] Eosinophils/100 leukocytes 1.1 % Normal 0.0-5.0 [facility] Comment on above: Order Comment: No: D o not add to previous draw Performed By: #### 5 0103 ####[facility] Erythrocyte distribution width Auto Ratio (RBC) 13.7 % Normal 11.5-16.9 [facility] Comment on above: Order Comment: No: D o not add to previous draw Performed By: #### 5 0103 ####[facility] [facility].[address] Erythrocytes (RBC) 4.12 mill/mm3 Low 4.30-5.90 [facility] Comment on above: Order Comment: No: D o not add to previous draw Performed By: #### 5 3 ####[facility] [facility] Hematocrit (HCT) 37.1 % Low 39.0-55.0 [facility] Comment on above: Order Comment: No: D o not add to previous draw Performed By: #### 5 0103 ####[facility] Hemoglobin mass conc (Bld) 12.4 g/dL Low 13.9-16.3 [facility] Comment on above: Order Comment: No: D o not add to previous draw Performed By: #### 5 0103 ####[facility] [place] [address], [facility] Lymphocytes/100 leukocytes 16.3 % Low 20.0-40.0 [facility] Comment on above: Order Comment: No: D o not add to previous draw Performed By: #### 5 0103 ####[facility] [place] [address], [facility] MCH 30.0 pg Normal 24.0-32.0 [facility] Comment on above: Order Comment: No: D o not add to previous draw Performed By: #### 5 0103 ####[facility] [place] [address], [facility] MCHC mass conc (RBC) 33.4 g/dL Normal 32.0-36.0 [facility] Comment on above: Order Comment: No: D o not add to previous draw Performed By: #### 5 0103 ####[facility] [place] [address], [facility] MCV 90.1 fL Normal 80.0-100.0 [facility] Comment on above: Order Comment: No: D o not add to previous draw Performed By: #### 5 0103 ####[facility] [place] [address], [facility] METHOD Normal RBC Morphology Normal [facility] Comment on above: Order Comment: No: D o not add to previous draw Performed By: #### 5 0103 ####[facility] [place] [address], [facility] MONOS 12.1 % High 2-8 [facility] Comment on above: Order Comment: No: D o not add to previous draw Performed By: #### 5 0103 ####[facility] [place] [address], [facility] Neutrophils/100 leukocytes 70.5 % High 50-70 [facility] Comment on above: Order Comment: No: D o not add to previous draw Performed By: #### 5 0103 ####[facility] [place] [address], [facility] PLAT CNT 120 Thou/mm3 Normal 100-400 [facility] Comment on above: Order Comment: No: D o not add to previous draw Performed By: #### 5 0103 ####[facility] [facility] [place] [address], [facility] WBC (Leukocytes) 4.7 Thou/mm3 Normal 4.0-10.0 [facility] Comment on above: Order Comment: No: D o not add to previous draw Performed By: #### 5 0103 ####[facility] [facility].[address] EEG Reporton 03-22-2017 EEG Report Name: Remington Barker [facility] MR#: [id number] Age: 61 Physician: Date: 03/22/2017 Lab#: Date of : 1955 Patient Type: I NEURODIAGNOSTIC SERVICES [id number] [place], [place] [address] Board of the [employer] Accredited LaboratoryDate of : [birth year]Medical record number: [id number] lab November: [id number] Day 5Date of study: 03/21/2017 to 03/22/2017Referring physician: Dr. Hoa Alvares WilliamHistory:This is a 61-year-old male with new onset seizure and fever. The study isto assist clinical diagnosis due to a concern of possible epilepticetiology.MEDICATION:V ersed, KeppraTechnical Description:This is a continuous monitoring utilizing digital EEG, audio, and video asan inpatient. EEG electrodes was placed according to International 10-20montage system. Digital EEG data was collected from 25 channels.Multi-reformative montages and digital analysis are used during theinterpretation of the record when appropriate. Parallel audio and videodata was collected, analyzed and correlated with EEG findings forsignificant events. An additional channel was used to monitor EKG duringthe EEG study.EEG Interpretation:This is a continuous monitoring utilizing digital EEG, audio, and video [facility] inpatient. This record started at 06:30:23 hours on March 21, 2017and was completed at that 06:30:07 hours on March 22, 2017. Thisrecord lasted for 24 hours. It was of good quality for digital EEG, audioand video. Artifacts were identified.The study was performed in poorly responsive adult who was a sedated on aventilator.There was no sustained wakeful background. Intermittently, rhythmicactivity with a frequency of 7-8 Hz and amplitude of 30-40 V were noticedin the bilateral posterior head regions. Rhythmic activity with afrequency of 10-12 Hz and amplitude between 10-20 V was observedintermittently in the bilateral anterior hemispheres.Generalized intermittent rhythmic slowing with a frequency of 2-4 Hz andamplitude of 80-100 V were observed as prolonged segments in 70-80% of therecord.Rhythmic activity with a frequency of the 12-14 Hz since amplitude -04 V were frequently noticed as brief segments with a centrofrontaldominance.Brief diffuse suppressions lasting for 1-3 seconds was recognized in 20-30%of the record.There was no sustained focal slowing, asymmetry, epileptiform discharge orelectrographic seizure.EEG Classification:The study was abnormal in an adult who was sedated on a ventilator. Thebackground was slow. There was generalized intermittent rhythmic slowing,diffuse suppression, and excessive fast.Clinical Correlation:The study is abnormal. It shows evidence to indicate significant sedativeeffects. Diffuse encephalopathy secondary to other causes especiallyunderlying systemic metabolic abnormality cannot be excluded. Clinicalcorrelation is recommended.Electronically Signed by:Damián Olvera M.D. 03/22/2017 03:51 P __Damián Olvera M.D.Date Dict: 03/22/2017/03:50 P/Damián Olvera M.D.Date Trans: 03/22/2017 03:50 P/EPHRAIM_JN:[id number]: Gasper Thurman D.O. [address] [place] [id number] [place] [facility] EEG Report Name: Remington Barker [facility] MR#: [id number] Age: 61 Physician: Date: 03/20/2017 To 03/21/2017 Lab#: [id number], day #4. Date of : 1955 Patient Type: I NEURODIAGNOSTIC SERVICES [id number] [place], [place] [address] Board of the [place] [employer] Accredited LaboratoryREFERRING PHYSICIAN: Hoa Chanel M.D. Ph.D.HISTORY: This video/EEG continuous monitoring is performed on [id number] male with a history of seizures, who presented with refractoryseizures and encephalopathy.CENTRAL ACTIVE MEDICATIONS: Versed infusion, levetiracetam, Vimpat.PROCEDURE: This is a 32-channel digital EEG recording with electrodesapplied according to the International 10-20 system of electrode placement,using collodion. Closed caption video monitoring of behavior, synchronouswith EEG recording is included in the analysis, as is digital/spectralanalysis of EEG waveforms.TECHNICAL DESCRIPTION: There is no normal background throughout the EEGrecording, background is composed of diffuse polymorphic delta frequencyactivity of approximately 50-75 microvolt intermixed with central andfrontally predominant beta frequency activity of approximately 10-15microvolts. There is no alpha frequency, and no posterior dominant rhythmis noted. Spindle activity is noted intermittently over the frontal andcentral brain regions associated with delta frequency, in a patternsuggestive of stage 2 sleep. No seizure activity is recorded. Noelectrographic spike or sharp waves are noted.EEG DIAGNOSIS: This video/EEG continuous monitoring is normal for an adultduring sleep and sedation. There is no normal background for wakefulnessduring Versed infusion.EEG INTERPRETATION: This video/EEG continuous monitoring shows a patterntypical for sedation. No epileptiform disturbance or seizure activitiesrecorded.Electronica lly Signed by:Hoa Chanel M.D. Ph.D 03/24/2017 01:01 P __Hoa Chanel M.D. Ph.DDate Dict: 03/21/2017/09:25 A/Hoa Chanel M.D. Ph.DDate Trans: 03/22/2017 02:11 A/mmoDate Revised: 03/24/2017 10:30 A/Herb_JN:[id number]: Gasper Thurman D.O. [address] [place] [id number] Normal [facility] LACTATE BLOODon 03-22-2017 Lactate 0.7 mmol/L Normal .5-2.2 [facility] Comment on above: Order Comment: Other , right weakness left gaze pref Performed By: #### 1 0054 ####[facility] [place] [address], [facility] MAGNESIUM BLOODon 03-22-2017 Magnesium 2.2 mg/dL Normal 1.9-2.7 [facility] Comment on above: Order Comment: No: D o not add to previous draw Performed By: #### 1 0070, 86075, 80671 ####[facility] [place] [address], [facility] OSMOLALITY BLOODon 7 Osmolality 308 mOsm/kg High 285-305 [facility] Comment on above: Order Comment: Other , right weakness left gaze pref Performed By: #### 1 0088, 33029 ####[facility] [place] [address], [facility] PHOSPHORUS BLOODon 7 Phosphate 2.2 mg/dL Low 2.5-5.0 [facility] Comment on above: Order Comment: No: D o not add to previous draw Performed By: #### 1 0070, 25837, 29270 ####[facility] [place] [address], [facility] POC GLUCOSE LABon 03-22-2017 Glucose mass conc 194 mg/dL High 70-100 [facility] Comment on above: Performed By: #### 8 5499 ####[facility] [place] [address], [facility] Glucose mass conc 194 mg/dL High 70-100 [facility] Comment on above: Performed By: #### 8 5499 ####[facility] [facility] [place] [address], [facility] Glucose mass conc 195 mg/dL High 70-100 [facility] Comment on above: Performed By: #### 8 5499 ####[facility] [facility] [place] [address], [facility] Glucose mass conc 195 mg/dL High 70-100 [facility] Comment on above: Performed By: #### 8 5499 ####[facility] [facility] [place] [address], [facility] TRIGLYCERIDES BLOODon 2016 Triglyceride 152 mg/dL High 40-149 [facility] Comment on above: Order Comment: Other , right weakness left gaze pref Result Comment: TRIG LYCERIDE REFERENCE RANGE:20 YEARS AND OLDER CARDIOVASCULAR RISKLESS THAN 150 mg/dl LOW [id number] TO 199 mg/dl BORDERLINE [id number] mg/dl AND GREATER HIGH RISK Performed By: #### 1 0088, 64081 ####[facility] [facility] [place] [address], [facility] AMMONIA BLOODon 03-21-2017 Ammonia 72 umol/L High 16-53 [facility] Comment on above: Order Comment: No: D o not add to previous drawNurse draw per TEJ Canales. Performed By: #### 0 0121, 14986, 23903, 14006 ####[facility] [facility] [place] [address], [facility] ARTERIAL BLOOD GAS WITH ICAo n 03-21-2017 BASE EXCESS -1 mmol/L Normal -2-2 [facility] Comment on above: Performed By: #### 0 0121, 55085, 43314, 49367 ####[facility] [facility] [place] [address], [facility] Bicarbonate (HCO3) 24 mmol/L Normal 23-27 [facility] Comment on above: Performed By: #### 0 0121, 78182, 62750, 62927 ####[facility] [place] [address], [facility] CO2 38 mmHg Normal 35-45 [facility] Comment on above: Performed By: #### 0 0121, 54383, 31645, 49203 ####[facility] [place] [address], [facility] DELIVERY SYSTEMS MV Normal [facility] Comment on above: Performed By: #### 0 0121, 82662, 40758, 92717 ####[facility] [place] [address], [facility] FIO2 40 % Normal 21-100 [facility] Comment on above: Performed By: #### 0 0121, 39565, 07316, 30900 ####[facility] [place] [address], [facility] IONIZED CALCIUM 1.22 mmol/L Normal 1.13-1.32 [facility] Comment on above: Performed By: #### 0 0121, 29752, 72919, 85973 ####[facility] [place] [address], [facility] MIN VOLUME 8.8 Normal [facility] Comment on above: Performed By: #### 0 0121, 36711, 62344, 78535 ####[facility] [place] [address], [facility] MODALITY AC Normal [facility] Comment on above: Performed By: #### 0 0121, 90611, 82561, 80189 ####[facility] [place] [address], [facility] O2 saturation 94.6 % Normal 94.0-97.0 [facility] Comment on above: Performed By: #### 0 0121, 45367, 65244, 46926 ####[facility] Oxygen in arterial blood 90 mm[Hg] Normal 75-100 [facility] Comment on above: Performed By: #### 0 0121, 58053, 19338, 81282 ####[facility] [place] [address], [facility] PEEP 5.0 CMH20 Normal [facility] Comment on above: Performed By: #### 0 0121, 30171, 36702, 30413 ####[facility] [place] [address], [facility] PF RATIO 225 mmHg Normal 50-400 [facility] Comment on above: Performed By: #### 0 0121, 86284, 57442, 55038 ####[facility] pH of blood 7.40 [pH] Normal 7.35-7.45 [facility] Comment on above: Performed By: #### 0 0121, 59190, 06333, 89557 ####[facility] Respiratory rate 14 /min Normal [facility] Comment on above: Performed By: #### 0 0121, 48691, 89560, 70336 ####[facility] TIDAL VOLUME (VT) CC 500 Normal [facility] Comment on above: Performed By: #### 0 0121, 97510, 19042, 32983 ####[facility] BASIC METABOLIC PANELon 09-2 Calcium 8.2 mg/dL Low 8.6-10.3 [facility] Comment on above: Order Comment: No: D o not add to previous draw Performed By: #### 0 0121, 27641, 43940, 77364 ####[facility] [place] [address], [facility] Chloride 106 mmol/L Normal 98-107 [facility] Comment on above: Order Comment: No: D o not add to previous draw Performed By: #### 0 0121, 88238, 10864, 88852 ####[facility] [place] [address], [facility] CO2 24 mmol/L Normal 21-31 [facility] Comment on above: Order Comment: No: D o not add to previous draw Performed By: #### 0 0121, 39476, 54171, 77179 ####[facility] [id number], [facility] Creatinine 0.80 mg/dL Normal 0.70-1.30 [facility] Comment on above: Order Comment: No: D o not add to previous draw Performed By: #### 0 0121, 30320, 00563, 67569 ####[facility] [place] [address], [facility] eGFR (black) mL/min/{1.73_m2} Normal >60 [facility] Comment on above: Order Comment: No: D o not add to previous draw Performed By: #### 0 0121, 69928, 85811, 17739 ####[facility] [place] [address], [facility] eGFR (non-black) mL/min/{1.73_m2} Normal >60 Th e [facility] Comment on above: Order Comment: No: D o not add to previous draw Performed By: #### 0 0121, 47947, 44029, 64370 ####[facility] [place] [address], [facility] Glucose mass conc 153 mg/dL High 70-100 [facility] Comment on above: Order Comment: No: D o not add to previous draw Performed By: #### 0 0121, 41335, 73000, 21257 ####[facility] [place] [address], [facility] Potassium molar conc 3.9 mmol/L Normal 3.5-5.1 [facility] Comment on above: Order Comment: No: D o not add to previous draw Performed By: #### 0 0121, 85509, 59596, 12629 ####[facility] [place] [address], [facility] Sodium 142 mmol/L Normal 136-145 [facility] Comment on above: Order Comment: No: D o not add to previous draw Performed By: #### 0 0121, 03050, 85536, 63284 ####[facility] [facility] [place] [address], [facility] Urea nitrogen 19 mg/dL Normal 7-25 [facility] Comment on above: Order Comment: No: D o not add to previous draw Performed By: #### 0 0121, 76363, 32410, 85514 ####[facility] [facility] [place] [address], [facility] Calcium CANCELED Normal 8.6-10.3 [facility] Comment on above: Order Comment: No: D o not add to previous draw Result Comment: M-CR ITICAL RESULT(S) REVIEWED, CALLED TO AND READ BACK BY SEMAJ Mcgregor RN @0446The released value 5.9 was canceled by [email or web address] on 03/21/2017 05:01 Performed By: #### 0 0121, 15418, 05320, 47233 ####[facility] [facility] [place] [address], [facility] Chloride CANCELED Normal 98-107 [facility] Comment on above: Order Comment: No: D o not add to previous draw Result Comment: The released value 77 was canceled by [email or web address] on 03/21/2017 05:01 Performed By: #### 0 0121, 19500, 62242, 70707 ####[facility] [place] [address], [facility] CO2 CANCELED Normal 21-31 [facility] Comment on above: Order Comment: No: D o not add to previous draw Result Comment: The released value 19 was canceled by [email or web address] on 03/21/2017 05:01 Performed By: #### 0 0121, 14452, 84678, 61776 ####[facility] [place] [address], [facility] Creatinine CANCELED Normal 0.70-1.30 [facility] Comment on above: Order Comment: No: D o not add to previous draw Result Comment: The released value 0.51 was canceled by [email or web address] on 03/21/2017 05:01 Performed By: #### 0 0121, 91566, 69286, 44543 ####[facility] [place] [address], [facility] eGFR (black) CANCELED Normal >60 [facility] Comment on above: Order Comment: No: D o not add to previous draw Result Comment: The released value >60 was canceled by [email or web address] on 03/21/2017 05:01 Performed By: #### 0 0121, 85714, 60319, 78814 ####[facility] [place] [address], [facility] eGFR (non-black) CANCELED Normal >60 [facility] Comment on above: Order Comment: No: D o not add to previous draw Result Comment: The released value >60 was canceled by [email or web address] on 03/21/2017 05:01 Performed By: #### 0 0121, 40519, 54235, 87944 ####[facility] [place] [address], [place] Glucose mass conc CANCELED Normal 70-100 [facility] Comment on above: Order Comment: No: D o not add to previous draw Result Comment: The released value 145 was canceled by [email or web address] on 03/21/2017 05:01 Performed By: #### 0 0121, 36401, 79510, 99481 ####[facility] [facility].[address] Potassium molar conc CANCELED Normal 3.5-5.1 [facility] Comment on above: Order Comment: No: D o not add to previous draw Result Comment: The released value 2.7 was canceled by [email or web address] on 03/21/2017 05:01 Performed By: #### 0 0121, 47310, 59211, 32810 ####[facility] [facility].[address] Sodium CANCELED Normal 136-145 [facility] Comment on above: Order Comment: No: D o not add to previous draw Result Comment: M-CR ITICAL RESULT(S) REVIEWED, CALLED TO AND READ BACK BY SEMAJ Mcgregor RN @0441The released value 90 was canceled by [email or web address] on 03/21/2017 05:01 Performed By: #### 0 0121, 01922, 88745, 20429 ####[facility] [facility].[address] Urea nitrogen CANCELED Normal 7-25 [facility] Comment on above: Order Comment: No: D o not add to previous draw Result Comment: The released value 18 was canceled by [email or web address] on 03/21/2017 05:01 Performed By: #### 0 0121, 60009, 42441, 45720 ####[facility] [place] [address], [facility] CBC W/DIFFon 03-21-2017 Basophils Auto #/vol (Bld) 0.0 % Normal 0.0-2.0 [facility] Comment on above: Order Comment: No: D o not add to previous draw Performed By: #### 0 0121, 75053, 74942, 50030 ####[facility] [place] [address], [facility] Eosinophils/100 leukocytes 0.7 % Normal 0.0-5.0 [facility] Comment on above: Order Comment: No: D o not add to previous draw Performed By: #### 0 0121, 92610, 72045, 83965 ####[facility] [facility] Erythrocyte distribution width Auto Ratio (RBC) 13.7 % Normal 11.5-16.9 [facility] Comment on above: Order Comment: No: D o not add to previous draw Performed By: #### 0 0121, 68822, 76235, 83839 ####[facility] Erythrocytes (RBC) 4.23 mill/mm3 Low 4.30-5.90 [facility] Comment on above: Order Comment: No: D o not add to previous draw Performed By: #### 0 0121, 20151, 90761, 85177 ####[facility] [facility].[address] Hematocrit (HCT) 38.5 % Low 39.0-55.0 [facility] Comment on above: Order Comment: No: D o not add to previous draw Performed By: #### 0 0121, 67837, 03135, 87671 ####[facility] [facility].[address] Hemoglobin mass conc (Bld) 12.8 g/dL Low 13.9-16.3 [facility] Comment on above: Order Comment: No: D o not add to previous draw Performed By: #### 0 0121, 65126, 20922, 11364 ####[facility] [place] [address], [facility] Lymphocytes/100 leukocytes 14.5 % Low 20.0-40.0 [facility] Comment on above: Order Comment: No: D o not add to previous draw Performed By: #### 0 0121, 46811, 53108, 86186 ####[facility] MCH 30.2 pg Normal 24.0-32.0 [facility] Comment on above: Order Comment: No: D o not add to previous draw Performed By: #### 0 0121, 06306, 34220, 95185 ####[facility] MCHC mass conc (RBC) 33.2 g/dL Normal 32.0-36.0 [facility] Comment on above: Order Comment: No: D o not add to previous draw Performed By: #### 0 0121, 70609, 03173, 58202 ####[facility] [facility] MCV 90.9 fL Normal 80.0-100.0 [facility] Comment on above: Order Comment: No: D o not add to previous draw Performed By: #### 0 0121, 71363, 80116, 54169 ####[facility] [facility] METHOD Normal RBC Morphology Normal [facility] Comment on above: Order Comment: No: D o not add to previous draw Performed By: #### 0 0121, 13595, 09586, 27386 ####[facility] MONOS 9.4 % High 2-8 [facility] Comment on above: Order Comment: No: D o not add to previous draw Performed By: #### 0 0121, 98415, 78752, 51172 ####[facility] Neutrophils/100 leukocytes 75.4 % High 50-70 [facility] Comment on above: Order Comment: No: D o not add to previous draw Performed By: #### 0 0121, 71016, 64784, 30877 ####[facility] [facility] [place] [address], [facility] PLAT CNT 126 Thou/mm3 Normal 100-400 [facility] Comment on above: Order Comment: No: D o not add to previous draw Performed By: #### 0 0121, 55543, 41815, 68173 ####[facility] [facility].[address] WBC (Leukocytes) 5.8 Thou/mm3 Normal 4.0-10.0 [facility] Comment on above: Order Comment: No: D o not add to previous draw Performed By: #### 0 0121, 39403, 03635, 09376 ####[facility] [facility].[address] EEG Reporton 03-21-2017 EEG Report Name: Remington Barker [facility] MR#: [id number] Age: 61 Physician: Hoa Chanel M.D. Ph.D Date: 03/19/2017-03/20/2017 Lab#: [id number], day 3 Date of : 1955 Patient Type: I [facility] [id number] [place], [place] [address] Board of the [place] [employer] Accredited LaboratoryHISTORY: This video/EEG continuous monitoring is performed on [id number] man with a history of epilepsy, admitted with refractoryseizures and status epilepticus.CENTRAL ACTIVE MEDICATIONS: Versed infusion, Keppra, carbamazepine,Vimpat.PROCEDURE : This is a 32-channel digital EEG recording with electrodesapplied according to the International 10-20 system of electrode placement,using collodion. Closed caption video monitoring behavior, synchronouswith EEG recording are included in the analysis, as is digital/spectralanalysis of EEG waveforms.TECHNICAL DESCRIPTION: Background throughout the EEG recording includes a15-20 microvolt mixture of beta frequencies intermixed with 30-40 microvoltpolymorphic delta and frequencies bilaterally. Amplitudes over the lefthemisphere tends to be somewhat lower, but do not always appear to be 50%or more lower than that over the right hemisphere. Two electrographicseizures are noted during this 24 hours of monitoring the first at 6:53a.m., and the second at 7:35 a.m., but neither are obvious on videomonitoring. Electrographically, may be again with acute onset of fastdischarge of beta frequency over the left temporal brain region, increasingin amplitude and decreasing in frequency to theta approximately 6 hertz,intermixing with sharps before ending abruptly after 1-2 minutes. For the7:35 a.m. seizure, the electrographic discharges also noted over the rightfrontal brain region. No other seizures occurred after 7:35 a.m. onS. No clinical signs are noted with either of them.Background for the rest of the EEG recording is delta/theta frequencymixture, with spindle activity seen bilaterally.EEG DIAGNOSIS: This video/EEG continuous monitoring is abnormal due to thepresence of 2 electrographic seizures from the left temporal brain regionat 6:53 a.m. and 7:35 a.m. on March 19.EEG INTERPRETATION: This EEG is abnormal due to 2 electrographic seizuresin the left temporal brain region, consistent with prior days of recording.Background is otherwise slow in a generalized fashion, with a trend towardslower amplitude over the left hemisphere, but this is not seen consistentlyand is not greater than 50% decrease in amplitude. Generalized slowing islikely correlate with the known history of sedation, may be also associatedwith encephalopathy or postictal state. Continuous monitoring andtreatment for seizure activity are warranted.Electronically Signed by:Hoa Chanel M.D. Ph.D 03/24/2017 01:01 P __Hoa Chanel M.D. Ph.DDate Dict: 03/20/2017/09:28 Jeovanny/Hoa Chanel M.D. Ph.DDate Trans: 03/21/2017 05:37 [id number]: Gasper Thurman D.O. [address] [place] [id number] Hoa Chanel M.D. Ph.D Department Of Neurology [address] [facility] [address] Normal [facility] LACTATE BLOODon 03-21-2017 Lactate 0.7 mmol/L Normal .5-2.2 [facility] Comment on above: Order Comment: No: D o not add to previous draw Performed By: #### 0 0121, 20224, 14990, 11795 ####[facility] [place] [address], [facility] LIVER BATTERYon 03-21-2017 Alanine aminotransferase (ALT) 32 U/L Normal 7-52 [facility] Comment on above: Order Comment: No: D o not add to previous draw Performed By: #### 0 0121, 57616, 99004, 94369 ####[facility] [place] [address], [facility] Albumin 3.0 g/dL Low 3.5-5.7 [facility] Comment on above: Order Comment: No: D o not add to previous draw Performed By: #### 0 0121, 18890, 11536, 98047 ####[facility] [place] [address], [facility] ALKALINE PHOSPH 34 IU/L Normal 34-104 [facility] Comment on above: Order Comment: No: D o not add to previous draw Performed By: #### 0 0121, 75799, 47327, 69357 ####[facility] [place] [address], [facility] Aspartate aminotransferase (AST) 20 U/L Normal 13-39 [facility] Comment on above: Order Comment: No: D o not add to previous draw Performed By: #### 0 0121, 83181, 55057, 99429 ####[facility] [place] [address], [facility] Bilirubin (direct) 0.1 mg/dL Normal 0.0-0.2 [facility] Comment on above: Order Comment: No: D o not add to previous draw Performed By: #### 0 0121, 40287, 52578, 42764 ####[facility] [facility] Bilirubin (total) 0.5 mg/dL Normal 0.3-1.0 [facility] Comment on above: Order Comment: No: D o not add to previous draw Performed By: #### 0 0121, 88410, 53178, 99907 ####[facility] [facility] Protein 5.5 g/dL Low 6.0-8.3 [facility] Comment on above: Order Comment: No: D o not add to previous draw Performed By: #### 0 0121, 73256, 18133, 14367 ####[facility] [facility] [place] [address], [facility] MAGNESIUM BLOODon 03-21-2017 Magnesium 2.2 mg/dL Normal 1.9-2.7 [facility] Comment on above: Order Comment: This order is a replacement of the rejected order with accession [id number]. Performed By: #### 0 0121, 50903, 38712, 36207 ####[facility] [facility] Magnesium CANCELED Normal 1.9-2.7 [facility] Comment on above: Order Comment: No: D o not add to previous draw Result Comment: The released value 2.4 was canceled by [email or web address] on 03/21/2017 05:02 Performed By: #### 0 0121, 08618, 08564, 87268 ####[facility] [facility] [address], [facility] PHOSPHORUS BLOODon 7 Phosphate 2.5 mg/dL Normal 2.5-5.0 [facility] Comment on above: Order Comment: This order is a replacement of the rejected order with accession [id number]. Performed By: #### 0 0121, 84792, 50043, 33592 ####[facility] [facility] [place] [address], [facility] Phosphate CANCELED Normal 2.5-5.0 [facility] Comment on above: Order Comment: No: D o not add to previous draw Result Comment: The released value <1.0 was canceled by [email or web address] on 03/21/2017 05:02 Performed By: #### 0 0121, 03515, 97342, 24785 ####[facility] [facility] [place] [address], [facility] POC GLUCOSE LABon 03-21-2017 Glucose mass conc 122 mg/dL High 70-100 [facility] Comment on above: Performed By: #### 0 0121, 00382, 45720, 11741 ####[facility] [facility] [place] [address], [facility] Glucose mass conc 148 mg/dL High 70-100 [facility] Comment on above: Performed By: #### 0 0121, 57134, 25656, 79125 ####[facility] [facility] [place] [address], [facility] Glucose mass conc 124 mg/dL High 70-100 [facility] Comment on above: Performed By: #### 0 0121, 20349, 54703, 05880 ####[facility] [facility] [place] [address], [facility] TSH WITH REFLEXon 03-21-2017 [place] CANCELED Normal [facility] Comment on above: Order Comment: No: D o not add to previous drawTSH with Reflex canceled. TSH ordered. Performed By: #### 0 0121, 94548, 14562, 18896 ####[facility] [facility] [place] [address], [facility] Thyroid stimulating hormone (TSH) CANCELED Normal 0.34-5.60 [facility] Comment on above: Order Comment: No: D o not add to previous drawTSH with Reflex canceled. TSH ordered. Result Comment: The released value 0.25 was canceled by NAYELY on 03/21/2017 20:25 Performed By: #### 0 0121, 25611, 57867, 94800 ####[facility] Thyroxine (T4) free CANCELED Normal [facility] Comment on above: Order Comment: No: D o not add to previous drawTSH with Reflex canceled. TSH ordered. Performed By: #### 0 0121, 11393, 05959, 62875 ####[facility] VITAMIN B12on 03-21-2017 Cobalamins (Vitamin B12) 388 pg/mL Normal 180-914 [facility] Comment on above: Order Comment: No: D o not add to previous draw Result Comment: REFE RENCE RANGES:180-914 pg/mL Jkqrle531-203 pg/mL Indeterminate<145 pg/mL Deficient Performed By: #### 0 0121, 21269, 69456, 50071 ####[facility] ARTERIAL BLOOD GAS WITH ICAo n 03-20-2017 BASE EXCESS -2 mmol/L Normal -2-2 [facility] Comment on above: Performed By: #### 0 0121, 50019, 45382, 77034 ####[facility] [place] [address], [facility] Bicarbonate (HCO3) 22 mmol/L Low 23-27 [facility] Comment on above: Performed By: #### 0 0121, 54376, 77419, 10902 ####[facility] [place] [address], [facility] CO2 35 mmHg Normal 35-45 [facility] Comment on above: Performed By: #### 0 0121, 39768, 18807, 71735 ####[facility] DELIVERY SYSTEMS MV Normal [facility] Comment on above: Performed By: #### 0 0121, 62625, 29815, 79994 ####[facility] [place] [address], [facility] FIO2 40 % Normal 21-100 [facility] Comment on above: Performed By: #### 0 0121, 77194, 56732, 08481 ####[facility] [facility].[address] IONIZED CALCIUM 1.20 mmol/L Normal 1.13-1.32 [facility] Comment on above: Performed By: #### 0 0121, 33894, 85762, 26848 ####[facility] [facility].[address] MIN VOLUME 7.8 Normal [facility] Comment on above: Performed By: #### 0 0121, 18925, 51979, 07556 ####[facility] [place] [address], [facility] MODALITY AC Normal [facility] Comment on above: Performed By: #### 0 0121, 06592, 19298, 82110 ####[facility] [facility] O2 saturation 96.4 % Normal 94.0-97.0 [facility] Comment on above: Performed By: #### 0 0121, 54931, 72352, 93794 ####[facility] [facility] Oxygen in arterial blood 106 mm[Hg] Critically high 75-100 [facility] Comment on above: Performed By: #### 0 0121, 91770, 57848, 55014 ####[facility] [place] [address], [facility] PEEP 5.0 CMH20 Normal [facility] Comment on above: Performed By: #### 0 0121, 81536, 41748, 92232 ####[facility] [place] [address], [facility] PF RATIO 265 mmHg Normal 50-400 [facility] Comment on above: Performed By: #### 0 0121, 07868, 97355, 88321 ####[facility] [place] [address], [facility] pH of blood 7.41 [pH] Normal 7.35-7.45 [facility] Comment on above: Performed By: #### 0 0121, 53139, 44811, 82241 ####[facility] Respiratory rate 14 /min Normal [facility] Comment on above: Performed By: #### 0 0121, 37669, 71095, 41548 ####[facility] TIDAL VOLUME (VT) CC 500 Normal [facility] Comment on above: Performed By: #### 0 0121, 55387, 76910, 02682 ####[facility] BASIC METABOLIC PANELon 09-2 Calcium 7.7 mg/dL Low 8.6-10.3 [facility] Comment on above: Order Comment: No: D o not add to previous draw Performed By: #### 0 0121, 36063, 54558, 51345 ####[facility] [place] [address], [facility] Chloride 113 mmol/L High 98-107 [facility] Comment on above: Order Comment: No: D o not add to previous draw Performed By: #### 0 0121, 41396, 90104, 81327 ####[facility] [place] [address], [facility] CO2 20 mmol/L Low 21-31 [facility] Comment on above: Order Comment: No: D o not add to previous draw Performed By: #### 0 0121, 54068, 42162, 54001 ####[facility] [place] [address], [facility] Creatinine 0.71 mg/dL Normal 0.70-1.30 [facility] Comment on above: Order Comment: No: D o not add to previous draw Performed By: #### 0 0121, 32033, 85221, 39793 ####[facility] [place] [address], [facility] eGFR (black) mL/min/{1.73_m2} Normal >60 [facility] Comment on above: Order Comment: No: D o not add to previous draw Performed By: #### 0 0121, 77937, 30948, 52872 ####[facility] [facility] eGFR (non-black) mL/min/{1.73_m2} Normal >60 Th e [facility] Comment on above: Order Comment: No: D o not add to previous draw Performed By: #### 0 0121, 18908, 62659, 05184 ####[facility] [place] [address], [facility] Glucose mass conc 78 mg/dL Normal 70-100 [facility] Comment on above: Order Comment: No: D o not add to previous draw Performed By: #### 0 0121, 65585, 17420, 10554 ####[facility] [place] [address], [facility] Potassium molar conc 3.8 mmol/L Normal 3.5-5.1 [facility] Comment on above: Order Comment: No: D o not add to previous draw Performed By: #### 0 0121, 90485, 16352, 70904 ####[facility] Sodium 141 mmol/L Normal 136-145 [facility] Comment on above: Order Comment: No: D o not add to previous draw Performed By: #### 0 0121, 55962, 49243, 36677 ####[facility] Urea nitrogen 16 mg/dL Normal 7-25 [facility] Comment on above: Order Comment: No: D o not add to previous draw Performed By: #### 0 0121, 60797, 15854, 56397 ####[facility] [facility] CBC COMPLETE BLOOD COUNTon 0 03-20-2017 Erythrocyte distribution width Auto Ratio (RBC) 13.4 % Normal 11.5-16.9 [facility] Comment on above: Order Comment: This order is a replacement of the rejected order with accession [id number]. Performed By: #### 0 0121, 31933, 50013, 95456 ####[facility] Erythrocytes (RBC) 4.14 mill/mm3 Low 4.30-5.90 [facility] Comment on above: Order Comment: This order is a replacement of the rejected order with accession [id number]. Performed By: #### 0 0121, 77596, 20719, 92992 ####[facility] Hematocrit (HCT) 37.2 % Low 39.0-55.0 [facility] Comment on above: Order Comment: This order is a replacement of the rejected order with accession [id number]. Performed By: #### 0 0121, 19191, 63211, 04514 ####[facility] Hemoglobin mass conc (Bld) 12.5 g/dL Low 13.9-16.3 [facility] Comment on above: Order Comment: This order is a replacement of the rejected order with accession [id number]. Performed By: #### 0 0121, 11971, 16976, 98587 ####[facility] MCH 30.1 pg Normal 24.0-32.0 [facility] Comment on above: Order Comment: This order is a replacement of the rejected order with accession [id number]. Performed By: #### 0 0121, 48784, 93256, 06591 ####[place] [address] [facility].[address] MCHC mass conc (RBC) 33.5 g/dL Normal 32.0-36.0 [facility] Comment on above: Order Comment: This order is a replacement of the rejected order with accession [id number]. Performed By: #### 0 0121, 67551, 58516, 75451 ####[place] [address] [facility].[address] MCV 89.8 fL Normal 80.0-100.0 [facility] Comment on above: Order Comment: This order is a replacement of the rejected order with accession [id number]. Performed By: #### 0 0121, 62015, 99168, 78210 ####[facility] [facility].[address] PLAT CNT 142 Thou/mm3 Normal 100-400 [facility] Comment on above: Order Comment: This order is a replacement of the rejected order with accession [id number]. Performed By: #### 0 0121, 49745, 39781, 02037 ####[facility] WBC (Leukocytes) 6.3 Thou/mm3 Normal 4.0-10.0 [facility] Comment on above: Order Comment: This order is a replacement of the rejected order with accession [id number]. Performed By: #### 0 0121, 72781, 09619, 42957 ####[facility] EEG Reporton 03-20-2017 EEG Report Name: Remington Barker [facility] MR#: [id number] Age: 61 Physician: Hoa Chanel M.D. Ph.D Date: 03/18/2017-03/19/2017 Lab#: [id number], day 2 Date of : 1955 Patient Type: I [facility] [id number] [place], [place] [address] Board of the [place] [employer] Accredited LaboratoryHISTORY: This video/EEG continuous monitoring is performed on [id number] man with a history of epilepsy, admitted with breakthroughseizure activity and unresponsiveness.CENTRALLY ACTIVE MEDICATIONS: Keppra, Vimpat, Versed.PROCEDURE: This is a 32-channel digital EEG recording with electrodesapplied according to the International 10-20 system of electrode placement,using collodion. Closed caption video monitoring behavior, synchronouswith EEG recording is included in the analysis, as is digital/spectralanalysis of EEG waveforms.TECHNICAL DESCRIPTION: There is no normal background throughout the EEGrecording, background includes a generalized 10-15 microvolt beta frequencyactivity intermixed with polymorphic 10-20 microvolt theta and deltafrequencies. There is no alpha frequency, and no posterior dominant rhythmis noted. There appears to be a loss of faster frequency or increasedpresence of delta frequency over the left hemisphere postictally in somecases. The patient had frequent seizures throughout the duration of theEEG recording, from approximately 7 times per hour at the onset ofrecording at 6:30 a.m. on March 18 reducing to 0-1 time per hour bythe end of the recording on March 19 by 6:30 a.m. Electrographicseizures are stereotypical in their appearance, beginning with an abruptonset of fast beta frequency activity over the left frontal brain region,of approximately 30 microvolt to 40 microvolts evolving in frequency andslowing, but 1st associating with sharp activity over the left frontal andtemporal brain region, reversing at the F7 and T3 electrodes, withdecreased frequencies into the theta and then delta frequencies beforeabrupt cessation. Most of these events are not characterized with anyclear behavioral changes. Occasional leftward eye deviation is noted. Nojerking movements are noted. No well defined electroencephalographiccorrela afshin of sleep are noted.EEG DIAGNOSIS: This video/EEG continuous monitoring is abnormal due to thepresence of very frequent electrographic seizures without return to normalbaseline at the onset of recording, consistent with status epilepticus. Atthe end of the recording, frequency of these brief electrographic seizureslasting from 1-2 minutes and decreases to 0-1 time per hour, with intraseizure interval up to 1.5 hours in the brooch maker novelty hours on . Continuous video/EEG monitoring is recommended to continue forassistance with clinical management, as events are largely subclinical.Aggressive treatment for seizures is advised.Electronically Signed by:Hoa Chanel M.D. Ph.D 03/21/2017 08:50 A __Hoa Chanel M.D. Ph.DDate Dict: 03/19/2017/09:39 A/Hoa Chanel M.D. Ph.DDate Trans: 03/20/2017 05:53 A/Dennis_JN:[id number]: Gasper Thurman D.O. [address] [place] [id number] Hoa Chanel M.D. Ph.D Department Of Neurology [address] [place] [address] Normal [facility] KEPPRA ILon 03-20-2017 IL Normal [facility] Comment on above: Order Comment: No: D o not add to previous draw KEPPRA 19 ug/mL Normal [facility] Comment on above: Order Comment: No: D o not add to previous draw Result Comment: A re ference range for Keppra has not been well established. The proposed therapeutic range for seizure control is 6-46 ug/mL. Pharmacokinetics of Keppra are affected by renal function. The relationship between serum concentrations and toxicity is not known. MAGNESIUM BLOODon 03-20-2017 Magnesium 1.8 mg/dL Low 1.9-2.7 [facility] Comment on above: Order Comment: No: D o not add to previous draw Performed By: #### 0 0121, 45995, 03501, 58565 ####[facility] [place] [address], [facility] PHOSPHORUS BLOODon 7 Phosphate 2.6 mg/dL Normal 2.5-5.0 [facility] Comment on above: Order Comment: No: D o not add to previous draw Performed By: #### 0 0121, 20970, 84175, 36381 ####[facility] [place] [address], [facility] POC GLUCOSE LABon 03-20-2017 Glucose mass conc 101 mg/dL High 70-100 [facility] Comment on above: Performed By: #### 0 0121, 74922, 98973, 84463 ####[facility] [place] [address], [place] Glucose mass conc 115 mg/dL High 70-100 [facility] Comment on above: Performed By: #### 0 0121, 82383, 39370, 61019 ####[facility] [place] [address], [place] Glucose mass conc 78 mg/dL Normal 70-100 [facility] Comment on above: Performed By: #### 0 0121, 98888, 02366, 81609 ####[facility] [place] [address], [place] Glucose mass conc 78 mg/dL Normal 70-100 [facility] Comment on above: Performed By: #### 0 0121, 39045, 57451, 26691 ####[facility] PORTABLE CHEST 1 VIEWon 02-22 PORTABLE CHEST 1 VIEW [facility] CenterDepartment of [address] [place] [address] Patient Name: REMINGTON BARKER : 1955Sex: MAge: Race: WhiteMRN: [id number]. Location: [id number] Status: IVisit #: [id number] Date: 03/20/2017 5:10:00 PMCompleted Date: 03/20/2017 05:35 PMRequesting Provider: JEFF SANDOVAL Attending Provider: ALEXI LOWERY Report Copy To: Signs & Symptoms: OtherHistory: Patient history not availableComments: Check E.T. Position, check ET tube positionExam: PORTABLE CHEST 1 VIEWAccession #: [id number] PORTABLE CHEST 1 VIEW 03/20/2017 5:35 PM EDT SIGNS AND SYMPTOMS: Other TECHNOLOGIST COMMENTS: check ET tube position QUESTION FOR THE RADIOLOGIST: Check E.T. Position, check ET tube position PROTOCOL: AP(PA) view was obtained. COMPARISON: Chest radiographs of 10/17/2016. FINDINGS: Left lower lobe opacity. Right lung is clear. Increasing left-sided pleural effusion. No pneumothorax. The cardiac mediastinal silhouette is unchanged. The right-sided IJ, endotracheal tube, and NG tube appear unchanged in positioning. No subdiaphragmatic free air. IMPRESSION: * Increasing right-sided pleural effusion with left basilar airspace disease.* Unchanged positioning of support tubes and lines. Approved by:Rebekah Beck on 03/20/2017 5:46 PM EDT. I, Brent Wilkinson, have reviewed the images and report and concur with these findings. Electronically signed by:Brent Wilkinson. Transcribed by: [email or web address], User Resident: [email or web address] ALLENANElectronically Signed by: BRENT WILKINSON @ 03/24/2017 06:41 PMI personally read this/these film(s) with this resident Normal [facility] Comment on above: Order Comment: Other , right weakness left gaze pref VALPROIC ACIDon 03-20-2017 VALPROIC ACID (DEPAKOTE) 72 mcg/mL Normal 60-100 [facility] Comment on above: Performed By: #### 0 0121, 18581, 43145, 87906 ####[facility] *AFB CULTUREon 03-19-2017 *AFB CULTURE Clinical Report: (D) Specimen: CSF Collected: 03/19/2017 12:14 Status: Final Last Updated: 05/01/2017 11:16 (1) Tube 3 Lumbar AFB (Final) No Acid Fast Bacilli Seen CULT RES (Final) No growth after 42 days of incubation Normal [facility] Comment on above: Order Comment: Tube 3 Lumbar Performed By: #### 2 1408 ####[facility] *CRYPTOCOCCAL AGon 7 *CRYPTOCOCCAL AG Clinical Report: (D) Specimen: CSF Collected: 03/19/2017 12:14 Status: Final Last Updated: 03/19/2017 18:37 (1) Tube 2 Lumbar CRYPT A (Final) Negative Normal [facility] Comment on above: Order Comment: Tube 2 Lumbar Performed By: #### 1 0054 ####[facility] *CSF CULTUREon 03-19-2017 *CSF CULTURE Clinical Report: (D) Specimen/Source: CSF/CEREBRAL SPINAL FLUID Collected: 03/19/2017 12:14 Status: Final Last Updated: 03/24/2017 11:16 (1) Tube 2 Lumbar Lumbar Puncture GRAM (Final) No Polys Seen No Bacteria Seen CYTOSPUN (Final) This Gram Stain was done on a cytocentrifuged specimen CULT RES (Final) No Growth Day 5 Normal [facility] Comment on above: Order Comment: Tube 2 LumbarLumbar Puncture Performed By: #### 0 0121, 13939, 17704, 04444 ####[facility] *FUNGAL CULTUREon 03-19-2017 *FUNGAL CULTURE Clinical Report: (D) Specimen: MISC Collected: 03/19/2017 12:14 Status: Final Last Updated: 04/21/2017 08:05 (1) Tube 2 Lumbar No: Do not add to previous draw CULT RES (Final) Culture negative for fungus Normal [facility] Comment on above: Order Comment: Tube 2 LumbarNo: Do not add to previous draw Performed By: #### 0 0121, 41827, 37245, 52832 ####[facility] APTTon 03-19-2017 aPTT 28.2 s Normal 25.0-35.0 [facility] Comment on above: Order Comment: No: D o not add to previous draw Result Comment: ALL RESULTS MUST BE INTERPRETED WITH RESPECT TO BLOOD DRAWING ARTIFACTOR DILUTION ERROR OF ANTICOAGULANT AT THE TIME OF SAMPLING.THE APTT SHOULD NOT BE USED TO MONITOR UNFRACTIONATED HEPARIN THERAPY, THIS LABORATORY NO LONGER HAS AN ESTABLISHED THERAPEUTIC RANGE BASEDON THE APTT. IT IS RECOMMENDED THAT THE [facility] - HEPARIN ASSAY (ANTI-XAACTIVITY) BE USED FOR THIS PURPOSE. Performed By: #### 2 1408 ####[facility] ARTERIAL BLOOD GAS WITH ICAo n 03-19-2017 BASE EXCESS -3 mmol/L Low -2-2 [facility] Comment on above: Performed By: #### 2 1408 ####[facility] [place] [address], [facility] Bicarbonate (HCO3) 22 mmol/L Low 23-27 [facility] Comment on above: Performed By: #### 2 1408 ####[facility] [place] [address], [facility] CO2 37 mmHg Normal 35-45 [facility] Comment on above: Performed By: #### 2 1408 ####[facility] [place] [address], [facility] DELIVERY SYSTEMS MV Normal [facility] Comment on above: Performed By: #### 2 1408 ####[facility] [place] [address], [facility] FIO2 40 % Normal 21-100 [facility] Comment on above: Performed By: #### 2 1408 ####[facility] [place] [address], [facility] IONIZED CALCIUM 1.14 mmol/L Normal 1.13-1.32 [facility] Comment on above: Performed By: #### 2 1408 ####[facility] [place] [address], [facility] MIN VOLUME 7.3 Normal [facility] Comment on above: Performed By: #### 2 1408 ####[facility] [place] [address], [place] MODALITY AC Normal [facility] Comment on above: Performed By: #### 2 1408 ####[facility] [place] [address], [place] O2 saturation 95.1 % Normal 94.0-97.0 [facility] Comment on above: Performed By: #### 2 1408 ####[facility] [place] [address], [facility] Oxygen in arterial blood 103 mm[Hg] Critically high 75-100 [facility] Comment on above: Performed By: #### 2 1408 ####[facility] [place] [address], [facility] PEEP 5.0 CMH20 Normal [facility] Comment on above: Performed By: #### 2 1408 ####[facility] [place] [address], [facility] pH of blood 7.38 [pH] Normal 7.35-7.45 [facility] Comment on above: Performed By: #### 2 1408 ####[facility] [place] [address], [facility] Respiratory rate 14 /min Normal [facility] Comment on above: Performed By: #### 2 1408 ####[facility] TIDAL VOLUME (VT) CC 500 Normal [facility] Comment on above: Performed By: #### 2 1408 ####[facility] [place] [address], [facility] BASIC METABOLIC PANELon - Calcium 7.5 mg/dL Low 8.6-10.3 [facility] Comment on above: Order Comment: No: D o not add to previous draw Performed By: #### 2 1408 ####[facility] [place] [address], [facility] Chloride 114 mmol/L High 98-107 [facility] Comment on above: Order Comment: No: D o not add to previous draw Performed By: #### 2 1408 ####[facility] [place] [address], [facility] CO2 21 mmol/L Normal 21-31 [facility] Comment on above: Order Comment: No: D o not add to previous draw Performed By: #### 2 1408 ####[facility] [place] [address], [facility] Creatinine 0.83 mg/dL Normal 0.70-1.30 [facility] Comment on above: Order Comment: No: D o not add to previous draw Performed By: #### 2 1408 ####[facility] [place] [address], [facility] eGFR (black) mL/min/{1.73_m2} Normal >60 [facility] Comment on above: Order Comment: No: D o not add to previous draw Performed By: #### 2 1408 ####[facility] [place] [address], [facility] eGFR (non-black) mL/min/{1.73_m2} Normal >60 Th e [facility] Comment on above: Order Comment: No: D o not add to previous draw Performed By: #### 2 1408 ####[facility] [place] [address], [facility] Glucose mass conc 105 mg/dL High 70-100 [facility] Comment on above: Order Comment: No: D o not add to previous draw Performed By: #### 2 1408 ####[facility] [place] [address], [facility] Potassium molar conc 3.9 mmol/L Normal 3.5-5.1 [facility] Comment on above: Order Comment: No: D o not add to previous draw Performed By: #### 2 1408 ####[facility] [place] [address], [facility] Sodium 144 mmol/L Normal 136-145 [facility] Comment on above: Order Comment: No: D o not add to previous draw Performed By: #### 2 1408 ####[facility] [place] [address], [facility] Urea nitrogen 19 mg/dL Normal 7-25 [facility] Comment on above: Order Comment: No: D o not add to previous draw Performed By: #### 2 1408 ####[facility] [facility].[address] CBC W/DIFFon 03-19-2017 Basophils Auto #/vol (Bld) 0.2 % Normal 0.0-2.0 [facility] Comment on above: Order Comment: No: D o not add to previous draw Performed By: #### 2 1408 ####[facility] [facility].[address] Eosinophils/100 leukocytes 0.7 % Normal 0.0-5.0 [facility] Comment on above: Order Comment: No: D o not add to previous draw Performed By: #### 2 1408 ####[facility] [facility].[address] Erythrocyte distribution width Auto Ratio (RBC) 13.7 % Normal 11.5-16.9 [facility] Comment on above: Order Comment: No: D o not add to previous draw Performed By: #### 2 1408 ####[facility] [facility].[address] Erythrocytes (RBC) 4.16 mill/mm3 Low 4.30-5.90 [facility] Comment on above: Order Comment: No: D o not add to previous draw Performed By: #### 2 1408 ####[facility] [facility] [place] [address], [facility] Hematocrit (HCT) 37.6 % Low 39.0-55.0 [facility] Comment on above: Order Comment: No: D o not add to previous draw Performed By: #### 2 1408 ####[facility] [facility] [place] [address], [facility] Hemoglobin mass conc (Bld) 12.6 g/dL Low 13.9-16.3 The [facility] Comment on above: Order Comment: No: D o not add to previous draw Performed By: #### 2 1408 ####[facility] Lymphocytes/100 leukocytes 12.0 % Low 20.0-40.0 [facility] Comment on above: Order Comment: No: D o not add to previous draw Performed By: #### 2 1408 ####[facility] MCH 30.2 pg Normal 24.0-32.0 [facility] Comment on above: Order Comment: No: D o not add to previous draw Performed By: #### 2 1408 ####[facility] MCHC mass conc (RBC) 33.5 g/dL Normal 32.0-36.0 [facility] Comment on above: Order Comment: No: D o not add to previous draw Performed By: #### 2 1408 ####[facility] [facility].[address] MCV 90.3 fL Normal 80.0-100.0 [facility] Comment on above: Order Comment: No: D o not add to previous draw Performed By: #### 2 1408 ####[facility] METHOD Normal RBC Morphology Normal [facility] Comment on above: Order Comment: No: D o not add to previous draw Performed By: #### 2 1408 ####[facility] MONOS 6.5 % Normal 2-8 [facility] Comment on above: Order Comment: No: D o not add to previous draw Performed By: #### 2 1408 ####[facility] Neutrophils/100 leukocytes 80.6 % High 50-70 [facility] Comment on above: Order Comment: No: D o not add to previous draw Performed By: #### 2 1408 ####[facility] [place] [address], [facility] PLAT CNT 148 Thou/mm3 Normal 100-400 [facility] Comment on above: Order Comment: No: D o not add to previous draw Performed By: #### 2 1408 ####[facility] WBC (Leukocytes) 9.0 Thou/mm3 Normal 4.0-10.0 [facility] Comment on above: Order Comment: No: D o not add to previous draw Performed By: #### 2 1408 ####[facility] [facility] CSF CELL COUNTon 03-19-2017 Erythrocytes (RBC) 0 mm3 Normal 0-0 [facility] Comment on above: Order Comment: Lumba r Tube 1 Tube 4 Performed By: #### 1 0054 ####[facility] [facility].[address] Erythrocytes (RBC) 22 mm3 High 0-0 [facility] Comment on above: Performed By: #### 1 0054 ####[facility] [facility].[address] FLUID APPEAR CLEAR AND COLORLESS Normal [facility] Comment on above: Order Comment: Lumba r Tube 1 Tube 4 Performed By: #### 1 0054 ####[facility] [facility] FLUID VOLUME 23.5 mL Normal [facility] Comment on above: Order Comment: Lumba r Tube 1 Tube 4 Performed By: #### 1 0054 ####[facility] [facility] [place] [address], [facility] Lymphocytes/100 leukocytes 56 % High 0-0 [facility] Comment on above: Order Comment: Lumba r Tube 1 Tube 4 Performed By: #### 1 0054 ####[facility] [place] [address], [facility] Lymphocytes/100 leukocytes 55 % High 0-0 [facility] Comment on above: Performed By: #### 1 0054 ####[facility] [facility] [place] [address], [facility] MACROPHAGE 8 % Normal [facility] Comment on above: Order Comment: Lumba r Tube 1 Tube 4 Performed By: #### 1 0054 ####[facility] [facility] [place] [address], [facility] MACROPHAGE 13 % Normal [facility] Comment on above: Performed By: #### 1 0054 ####[facility] [facility].[address] OTHER F2 70 CELL DIFF DONE BY CYTOSPIN Normal [facility] Comment on above: Order Comment: Lumba r Tube 1 Tube 4 Performed By: #### 1 0054 ####[facility] [facility] [place] [address], [facility] OTHER F2 80 CELL DIFF DONE BY CYTOSPIN Normal [facility] Comment on above: Performed By: #### 1 0054 ####[facility] [facility] [place] [address], [facility] OTHER F3 CHECKED BY ROBLES GARZA M.D. Normal [facility] Comment on above: Order Comment: Lumba r Tube 1 Tube 4 Result Comment: Resu lt changed by CHACHO on 03/21/2017 10:11. The previous value wasPRELIMINARY REPORT; VERIFIED REPORT TO FOLLOW. Performed By: #### 1 0054 ####[facility] [facility] [place] [address], [facility] SEGS 6 % High 0-0 [facility] Comment on above: Order Comment: Lumba r Tube 1 Tube 4 Performed By: #### 1 0054 ####[facility] [place] [address] SEGS 12 % High 0-0 [facility] Comment on above: Performed By: #### 1 0054 ####[facility] SITE LUMBAR Normal [facility] Comment on above: Order Comment: Lumba r Tube 1 Tube 4 Performed By: #### 1 0054 ####[facility] WBC (Leukocytes) 5 mm3 High 0-0 [facility] Comment on above: Performed By: #### 1 0054 ####[facility] WBC (Leukocytes) 7 mm3 High 0-0 [facility] Comment on above: Order Comment: Lumba r Tube 1 Tube 4 Performed By: #### 1 0054 ####[address] XANTHOCHROMIA NONE SEEN Normal [facility] Comment on above: Order Comment: Lumba r Tube 1 Tube 4 Performed By: #### 1 0054 ####[place] [address] CHEST WO CONTRASTon 03-19 CT CHEST WO CONTRAST [facility] CenterDepartment [facility] Edyveh[address] [place] [address] Patient Name: REMINGTON BARKER : 1955Sex: MAge: Race: WhiteMRN: [id number]. Location: [id number] Status: IVisit #: [id number] Date: 03/19/2017 2:30:00 PMCompleted Date: 03/19/2017 05:31 PMRequesting Provider: JERICHO WANG Attending Provider: ALEXI LOWERY Report Copy To: Signs & Symptoms: Shortness of BreathHistory: Patient history not availableComments: R/O InfiltratesExam: CT CHEST WO CONTRASTAccession #: [id number] CT CHEST WO CONTRAST 03/19/2017 5:31 PM EDT SIGN AND SYMPTOMS: Shortness of Breath TECHNOLOGIST COMMENTS: coughing and shortness of breath QUESTIONS PER RADIOLOGIST: R/O Infiltrates PROTOCOL: Axial CT images of the chest were obtained without IV contrast. TECHNIQUE: Multidetector CT axial slices of the chest were obtained without IV contrast. Multiplanar reformats were performed and viewed on a separate workstation and reviewed to further define anatomy and possible pathology.Appropriate CT dose lowering techniques were utilized. COMPARISON: Chest x-ray March 19, 2017.. FINDINGS:Lower neck: Thyroid gland within normal limits, no supraclavicle adenopathy.Vessels: Limited evaluation due to lack of IV contrast. Mild atherosclerotic calcification at the aortic arch.Mediastinum and Catie: Scattered lymph nodes in the mediastinum however none are pathologic by CT size criteria.Heart: Normal size. No pericardial effusion.Airways: Endotracheal tube in place with the tip 0.5 cm above the mayuri. This could be retracted 2 to 3 cm. The central airways are otherwise patent.Lungs: Alveolar airspace opacities with groundglass densities in the posterior right upper lobe. There are also faint bilateral lower lobe airspace opacities with atelectasis at the lung bases. Calcified granuloma in the right middle lobe along the horizontal fissure.Pleura: Small right-sided pleural effusion. No pneumothorax.Chest Wall: Right IJ central venous line in place. Body wall is otherwise unremarkable. Upper Abdomen: Enteric tube in the stomach. Hyperattenuating contents and the gallbladder likely represents vicarious excretion of contrast. The upper abdominal contents are otherwise unremarkable. Bones: No acute osseous abnormalities or aggressive osseous lesions. IMPRESSION: 1. Alveolar airspace opacities with groundglass densities in the posterior right upper lobe compatible with a pneumonia.2. There are also airspace opacities in the bilateral posterior lower lobes worrisome for pneumonia with areas of scarring and atelectasis.3. Small right-sided pleural effusion.4. The endotracheal tube tip is 0.5 cm above the mayuri. This could be retracted 2 - 3 cm. Approved by:Lorenzo Gallegos on 03/19/2017 5:48 PM EDT. I, Brent Wilkinson, have reviewed the images and report and concur with these findings. Electronically signed by:Brent Wilkinson. Transcribed by: [email or web address], User Resident: LORENZO GALLEGOSElectronically Signed by: BRENT WILKINSON @ 03/19/2017 08:27 PMI personally read this/these film(s) with this resident Normal [facility] Comment on above: Order Comment: R/O I nfiltrates EEG Reporton 03-19-2017 EEG Report Name: Remington Barker [facility] MR#: [id number] Age: 61 Physician: Date: 03/17/2017 Lab#: [id number] Date of : 1955 Patient Type: I [facility] [id number] [place], [place] [address] Board of the [employer] Accredited LaboratoryHISTORY: This is a 61-year-old man with a history of possible seizure, [facility], with complaints of inability to move theright upper extremity and unresponsiveness.MEDICATIONS: Keppra.EEG REPORT: This EEG was acquired with electrodes placed according to10/20 international electrode placement system. Video was recordedsimultaneously. The quality of recording was good. The EEG background wasfeatured by 9 hertz rhythmic medium voltage theta activity seen in theposterior channels over the right hemisphere. On the left hemisphere,focal continuous 1-3 hertz polymorphic delta activity of medium voltage wasseen throughout the recording. Sustained asymmetry with reduced amplitudeand faster activity of the left hemisphere were seen throughout therecording. Intermittently, periods of 3-4 hertz with an overlying fasteractivity was seen over the right hemisphere, lasting for 3-4 seconds eachtime. No clear interictal epileptiform discharges were seen.Electrographic seizures were seen emanating from the left hemisphere,particularly anterior/mid temporal region (F7 greater than T3).Electrographically, the seizures were featured by an evolving pattern of5-6 hertz sharply contoured theta activity, which was very rhythmic. Thisactivity evolved in amplitude and increased in frequency, evolving into 6-7hertz sharp wave discharges, maximum in the anterior temporal (F7 maximum)region. This pattern spread to the entire left hemisphere very rapidly,but did not spread to right hemisphere. Afterwards, this pattern evolvedinto 3-4 hertz rhythmic delta activity of medium voltage before dissipatingoff and leaving behind postictal slowing on the left hemisphere.Clinically, the seizures were featured by staring-off to the left side. Noclear convulsive activity was seen on the video. Each seizure lasted for1-2 minutes. Three discrete seizures were recorded. No clear sleepstructures were seen. Photic stimulation did not elicit any abnormalresponses. Hyperventilation was not performed.EEG CLASSIFICATION: This EEG recording carried out in the awake state isabnormal due to:1. Frequent electrographic seizures emanating from the left anterior temporal region.2. Asymmetry with suppression of faster activity over the left hemisphere.3. Left hemispheric focal continuous slowing.4. Intermittent generalized slowing.CLINICAL CORRELATION: This is an abnormal EEG recording, indicative ofincreased epileptogenicity in the left anterior temporal region with threeelectrographic seizures with limited clinical signs originating from thesame. Additionally, there are evidence of left hemispheric corticalsuppression and structural dysfunction and a mild diffuse encephalopathy.The findings were communicated to the treating team.Electronically Signed by:Enrique Osorio MD 03/21/2017 01:26 P __JENNI Briceate Dict: 03/18/2017/06:45 P/JENNI Briceate Trans: 03/19/2017 08:31 A/mmoDN_JN:[id number]: Gasper Thurman D.O. [address] [place] [address] [place] [address] Normal [facility] EEG Report Name: Remington Barker [facility] MR#: [id number] Age: 61 Physician: Hoa Chanel M.D. Ph.D Date: 03/17/2017-03/18/2017 Lab#: [id number], day 1 Date of : 1955 Patient Type: I [facility] [id number] [place], [place] [address] Board of the [employer] Accredited LaboratoryHISTORY: This video/EEG continuous monitoring is performed on [id number] man with a history of epilepsy, found unresponsive outside ofhis home, with presumed seizure activity. The patient was noted to be notmoving his right upper extremity, and have a fever.CENTRALLY ACTIVE MEDICATIONS: Keppra.PROCEDURE: This is a 32 channel digital EEG recording with electrodesapplied according to the International 10-20 system of electrode placement,using collodion. Closed caption video monitoring behavior, synchronous withEEG recording is included in the analysis, as is digital/spectral analysisof EEG waveforms.TECHNICAL DESCRIPTION: There is no normal background at the onset ofrecording, background showed diffuse low amplitude slowing over the lefthemisphere, with 10 microvolt mixture of generalized beta frequency withpolymorphic delta frequency activity of approximately 1-2 hertz and 20-30microvolts. Over the right hemisphere, background at the onset ofrecording includes beta frequency activity of approximately 10-15microvolts, with less pronounced delta frequency activity. Throughout theduration of this EEG from 11:10 p.m. on March 17 until 6:30 a.m. onSept, there are frequent seizures occurring every 5-10 minutesinitially, with increasing interval, towards the longer end of the spectrumcited above. Electrographic seizure activity begins with acute onset ofleft hemispheric alpha to beta frequency of approximately 40 microvolts,rhythmic and evolving into faster activity, including beta frequencies andintermittently sharp activity, particularly over the left frontal andtemporal brain regions, reversing at F7 and T3, evolving in frequency totheta frequencies of higher amplitude up to 100 microvolts beforedecreasing to delta frequency with sharps maintained until offset.Seizures last for approximately 1 to 1.5 minutes in duration, and arecorrelated behaviorally with left gaze, and intermittent chewing motions.No colonic movements are noted or tonic extension of his limbs.Electrographic seizure activity is similar and stereotyped throughout theduration of recording. There is no return to normal wakeful backgrounds,no alpha frequency, and no posterior dominant rhythm noted throughout theEEG recording. The left hemisphere appears to have generalized slowing anddecreased amplitude between seizures.EEG DIAGNOSIS: This video/EEG continuous monitoring is abnormal due to thepresence of frequent electrographic seizures without return to a normalbaseline, consistent with electrographic status epilepticus.Continued video EEG monitoring and aggressive treatment for seizures arewarranted.Electronically Signed by:Hoa Chanel M.D. Ph.D 03/19/2017 02:49 P __Hoa Chanel M.D. Ph.DDate Dict: 03/18/2017/10:42 A/Hoa Chanel M.D. Ph.DDate Trans: 03/18/2017 10:28 P/mmoDN_JN:[id number]: Gasper Thurman D.O. [address] [place] [id number] Hoa Chanel M.D. Ph.D Department Of Neurology [address] [place] [address] Normal [facility] ENTEROVIRUS, PCR [id number] ENTEROVIRUS , PCR Not Detected Normal [facility] Comment on above: Order Comment: Tube 3 Lumbar Result Comment: NOT DETECTED - A negative result does not rule out thepresence of PCR inhibitors in the patient specimen or assayspecific nucleic acid in concentrations below the level ofdetection by the assay.INTERPRETIVE INFORMATION: Enterovirus by PCRTest developed and characteristics determined by [facility]. See Compliance Statement A: [facility]/CSThis test is performed pursuant to an agreement with [employer]Performed by [employer],[address] [place] [address] dft.[facility], Zach Blanchard MD - Lab. Director EV SOURCE Lumbar Normal [facility] Comment on above: Order Comment: Tube 3 Lumbar GLUCOSE CSFon 03-19-2017 GLUCOSE CSF 61 mg/dL Normal 40-70 [facility] Comment on above: Order Comment: Tube 2 Lumbar Performed By: #### 1 0054 ####[place] [address] NEGRO VIRUS PCR [id number] NEGRO VIRUS PCR Not Detected Normal [facility] Comment on above: Order Comment: Tube 2 LumbarNo: Do not add to previous draw Result Comment: NOT DETECTED - A negative result does not rule out thepresence of PCR inhibitors in the patient specimen or assayspecific nucleic acid in concentrations below the level ofdetection by the assay.INTERPRETIVE INFORMATION: NEGRO Virus by PCRTest developed and characteristics determined by [facility]. See Compliance Statement B: [facility]/CSPerformed by [employer],[address] [facility] [place] [address] eht.[facility], Zach Blanchard MD - Lab. Director NEGRO VIRUS SOURCE Lumbar Normal [facility] Comment on above: Order Comment: Tube 2 LumbarNo: Do not add to previous draw LUMBAR PUNCTURE DIAGNOSTICon 03-19-2017 LUMBAR PUNCTURE DIAGNOSTIC [facility] CenterDepartment of Bmuednfev[address] [place] [address] Patient Name: REMINGTON BARKER : 1955Sex: MAge: Race: WhiteMRN: [id number]. Location: [id number] Status: IVisit #: [id number] Date: 03/19/2017 8:00:00 AMCompleted Date: 03/19/2017 12:01 PMRequesting Provider: MIKI SCOTT Attending Provider: ALEXI LOWERY Report Copy To: Signs & Symptoms: Altered Mental StatusHistory: Patient history not availableComments: R/O MenningitisExam: LUMBAR PUNCTURE DIAGNOSTICAccession #: [id number] LUMBAR PUNCTURE DIAGNOSTIC 03/19/2017 12:01 PM EDT SIGNS AND SYMPTOMS: Altered Mental Status TECHNOLOGIST COMMENTS: Lumbar puncture with , Dr. Bethea, .22 min of fluoro time used QUESTION FOR THE RADIOLOGIST: R/O Menningitis INFORMED CONSENT: Reason for procedure was discussed with the patient. The procedure expectations risks benefits options and alternatives were discussed. All the questions were answered. The patient understood that results cannot be guaranteed. The procedure is indicated and risks are acceptable. Consent was obtained. Timeout:[place] protocol timeout verification performed. PROCEDURE: Lumbar puncture was performed under fluoroscopic guidance and local anesthesia with strict aseptic precautions. 1% lidocaine was used for local anesthesia.3.5 inch 20-gauge spinal needle was used. Lumbar puncture was performed at L3-L4 via right oblique sublaminar approach. Retrograde free flow of clear CSF was obtained. Opening pressure was 17 mmHg. 23 cc of CSF was collected and sent to lab for investigations. Fluoroscopy time: 0.22 minutes Patient tolerated the procedure well. No immediate complications were detected. IMPRESSION: Fluoroscopy guided lumbar puncture was performed. No immediate complications detected. Approved by:Isis Rose on 03/19/2017 1:33 PM EDT. I, Yuko Thorne, have reviewed the images and report and concur with these findings. Electronically signed by:Yuko Thorne. Transcribed by: [email or web address], User Resident: ISIS De Santiagoectronically Signed by: YUKO THORNE @ 03/19/2017 03:26 PMI personally read this/these film(s) with this resident Normal [facility] Comment on above: Order Comment: R/O M enningitis LYME ABS DET CSF [id number] LYME ABS DET 0.04 BENITO Normal <=0.99 [facility] Comment on above: Order Comment: Tube 2 Lumbar Result Comment: INTE RPRETIVE INFORMATION: Borrelia burgdorferi Abs, BRII, CSF 0.99 BENITO or less: ......... Negative - Antibody to B. burgdorferi not detected. 1.00 - 1.20 BENITO ........... Equivocal - Repeat testing in 10-14 days may be helpful. 1.21 BENITO or greater: ...... Positive - Probable presence of antibody to B. burgdorferi detected.The detection of antibodies to B. burgdorferi incerebrospinal fluid may indicate central nervous systeminfection. However, consideration must be given topossible contamination by blood or transfer of serumantibodies across the blood-brain barrier.Current CDC recommendations for the serologic diagnosis ofLyme disease are to screen with a polyvalent BRII test andconfirm equivocal and positive results with immunoblot.Both IgM and IgG immunoblots should be performed on samplesless than 4 weeks after appearance of erythema migrans.Only IgG immunoblot should be performed on samples greaterthan 4 weeks after the disease onset. IgM immunoblot inthe chronic stage is not recommended and does not aid inthe diagnosis of neuroborreliosis or chronic Lyme disease.Please submit requests for appropriate immunoblot testingwithin 10 days.Test developed and characteristics determined by [facility]. See Compliance Statement B: [facility]/CSPerformed by [employer],[address] [place] [address] yqs.[facility], Zach Blanchard MD - Lab. Director MAGNESIUM BLOODon 03-19-2017 Magnesium 1.9 mg/dL Normal 1.9-2.7 [facility] Comment on above: Order Comment: No: D o not add to previous draw Performed By: #### 2 1408 ####[facility] [place] [address], [facility] PHOSPHORUS BLOODon 7 Phosphate 2.6 mg/dL Normal 2.5-5.0 [facility] Comment on above: Order Comment: No: D o not add to previous draw Performed By: #### 2 1408 ####[facility] [place] [address], [facility] POC GLUCOSE LABon 03-19-2017 Glucose mass conc 78 mg/dL Normal 70-100 [facility] Comment on above: Performed By: #### 1 0054 ####[facility] [place] [address], [facility] Glucose mass conc 71 mg/dL Normal 70-100 [facility] Comment on above: Performed By: #### 2 1408 ####[address] [address], [facility] Glucose mass conc 100 mg/dL Normal 70-100 [facility] Comment on above: Performed By: #### 5 0103 ####[facility] [place] [address], [facility] PORTABLE CHEST 1 VIEWon 02-22 PORTABLE CHEST 1 VIEW [facility] CenterDepartment of Fukrfiveo[address] [place] [id number] Patient Name: REMINGTON BARKER : 1955Sex: MAge: Race: WhiteMRN: [id number]. Location: [id number] Status: IVisit #: [id number] Date: 03/19/2017 5:00:00 AMCompleted Date: 03/19/2017 09:08 AMRequesting Provider: JEFF SANDOVAL Attending Provider: ALEXI LOWERY Report Copy To: Signs & Symptoms: Elevated WBCHistory: Patient history not availableComments: R/O AspirationExam: PORTABLE CHEST 1 VIEWAccession #: [id number] PORTABLE CHEST 1 VIEW 03/19/2017 9:08 AM EDT SIGNS AND SYMPTOMS: Elevated WBC TECHNOLOGIST COMMENTS: elevated WBC QUESTION FOR THE RADIOLOGIST: R/O Aspiration PROTOCOL: AP(PA) view was obtained. COMPARISON: Prior study from the day before. FINDINGS: Frontal view of the chest revealed normal cardiac size and configuration. No change in support tubes including ETT, NGT and right IJ central line. There is persistent right upper lobe infiltrate with slight interval worsening since prior study. There is left basal platelike atelectasis, new since prior exam. Bony skeleton appears intact. IMPRESSION: Worsening right upper lobe infiltrate and left basal platelike atelectasis. Electronically signed by:Ibrahima Garcia. Transcribed by: [email or web address], User Resident: Electronically Signed by: IBRAHIMA GARCIA @ 03/19/2017 01:50 PM Normal [facility] Comment on above: Order Comment: R/O A spiration PROTHROMBIN TIMEon 7 INR Coag RelTime (PPP) 1.11 {INR} Normal 0.91-1.16 [facility] Comment on above: Order Comment: No: D o not add to previous draw Result Comment: ACCC P RECOMMENDED INR FOR WARFARIN THERAPY CONDITION INRPROPHYLAXIS OF VENOUS THROMBOSIS 2-3(HIGH-RISK SURGERY)TREATMENT OF VENOUS THROMBOSIS 2-3TREATMENT OF PULMONARY EMBOLISM 2-3PREVENTION OF SYSTEMIC EMBOLISM: 2-3 ACUTE MYOCARDIAL INFARCTION TISSUE HEART VALVES VALVULAR HEART DISEASE ATRIAL FIBRILLATION RECURRENT SYSTEMIC EMBOLISMMECHANICAL HEART VALVE 2.5-3.5 FROM: ORAL ANTICOAGULANTS. MECHANISM OF ACTION, CLINICALEFFECTIVENESS, AND OPTIMAL THERAPEUTIC RANGE. [id number]. Performed By: #### 2 1408 ####[facility] Prothrombin time (PT) Coag time (PPP) 14.4 s Normal 12.3-14.8 [facility] Comment on above: Order Comment: No: D o not add to previous draw Result Comment: ALL RESULTS MUST BE INTERPRETED WITH RESPECT TO BLOOD DRAWING ARTIFACTOR DILUTION ERROR OF ANTICOAGULANT AT THE TIME OF SAMPLING. Performed By: #### 2 1408 ####[facility] TOTAL PROTEIN CSFon 03-19-20 17 TOTAL PROTEIN CSF 68.0 mg/dL High 20.0-45.0 [facility] Comment on above: Order Comment: Tube 2 LumbarNo: Do not add to previous draw Performed By: #### 1 0054 ####[facility] VARICELLA ZOSTER PCR [id number] 03-19-2017 VZV BY PCR Not Detected Normal [facility] Comment on above: Order Comment: Tube 3 LumbarNo: Do not add to previous draw Result Comment: NOT DETECTED - A negative result does not rule out thepresence of PCR inhibitors in the patient specimen or assayspecific nucleic acid in concentrations below the level ofdetection by the assay.INTERPRETIVE INFORMATION: Varicella-Zoster Virus by PCRTest developed and characteristics determined by [facility]. See Compliance Statement B: [facility]/CSPerformed by [employer],[address] [place] [address] inh.[facility], Zach Blanchard MD - Lab. Director VDRL CSFon 03-19-2017 [place] Normal [facility] Comment on above: Order Comment: Tube 3 Lumbar VDRL NONREACTIVE Normal NR [facility] Comment on above: Order Comment: Tube 3 Lumbar [place] [id number] on 03-19-2017 [place] IGG CSF 0.10 IV Normal <=1.29 [facility] Comment on above: Order Comment: Tube 3 LumbarNo: Do not add to previous draw Result Comment: INTE RPRETIVE INFORMATION: West Nile Virus Ab IgG by BRII, CSF 1.29 IV or less ....... Negative: No significant level of West Nile virus IgG antibody detected. 1.30 - 1.49 IV ........ Equivocal: Questionable presence of West Nile virus IgG antibody detected. Repeat testing in 10-14 days may be helpful. 1.50 IV or greater .... Positive: Presence of IgG antibody to West Nile virus detected, suggestive of current or past infection.This test is intended to be used as a semi-quantitativemeans of detecting West Nile virus-specific IgG in CSFsamples in which there is a clinical suspicion of West NileVirus infection. This test should not be used solely forquantitative purposes, nor should the results be usedwithout correlation to clinical history or other data.Because other members of the Flaviviridae family, such asSt. Mohan encephalitis virus, show extensivecross-reactivity with West Nile virus, serologic testingspecific for these species should be considered.The detection of antibodies to West Nile virus incerebrospinal fluid may indicate central nervous systeminfection. However, consideration must be given to possiblecontamination by blood or transfer of serum antibodiesacross the blood-brain barrier.Test developed and characteristics determined by [facility]. See Compliance Statement B: [facility]/ [place] IGM CSF 0.02 IV Normal <=0.89 [facility] Comment on above: Order Comment: Tube 3 LumbarNo: Do not add to previous draw Result Comment: INTE RPRETIVE INFORMATION: West Nile Virus Ab IgM by BRII, CSF0.89 IV or less ...... Negative - No significant level of West Nile virus IgM antibody detected.0.90-1.10 IV ......... Equivocal - Questionable presence of West Nile virus IgM antibody detected. Repeat testing in 10-14 days may be helpful.1.11 IV or greater ... Positive - Presence of IgM antibody to West Nile virus detected, suggestive of current or recent infection.This test is intended to be used as a semi-quantitativemeans of detecting West Nile virus-specific IgM in CSFsamples in which there is a clinical suspicion of West Nilevirus infection. This test should not be used solely forquantitative purposes, nor should the results be usedwithout correlation to clinical history or other data.Because other members of the Flaviviridae family, such asSt. Mohan encephalitis virus, show extensivecross-reactivity with West Nile virus, serologic testingspecific for these species should be considered.The detection of antibodies to West Nile virus incerebrospinal fluid may indicate central nervous systeminfection. However, consideration must be given to possiblecontamination by blood or transfer of serum antibodiesacross the blood-brain barrier.Test developed and characteristics determined by [facility]. See Compliance Statement B: [facility]/CSPerformed by [employer],[address] [place] [id number] jhj.[facility], Zach Blanchard MD - Lab. Director *BLOOD CULTUREon 03-18-2017 *BLOOD CULTURE Clinical Report: (D) Specimen: BLOOD CULTURE Collected: 03/18/2017 10:24 Status: Final Last Updated: 03/24/2017 09:35 CULT RES (Final) No Growth Day 5 Normal [facility] Comment on above: Performed By: #### 1 0054 ####[facility] *SPUTUM CULTUREon 03-18-2017 *SPUTUM CULTURE Clinical Report: (D) Specimen/Source: SPUTUM/SPUTUM, INDUCED Collected: 03/18/2017 16:30 Status: Final Last Updated: 03/21/2017 08:05 (1) Yes: Add to Previous draw if able GRAM (Final) Zero Squamous Epithelial Cells, >25 Polys Per Low Power Field No Bacteria Seen ISO (Final) Rare Growth Colonies Consistent with Upper Respiratory Kaylen Normal [facility] Comment on above: Order Comment: Yes: Add to Previous draw if able Performed By: #### 5 0103 ####[facility] ARTERIAL BLOOD GAS WITH ICAo n 03-18-2017 BASE EXCESS -5 mmol/L Low -2-2 [facility] Comment on above: Performed By: #### 8 4511 ####[facility] Bicarbonate (HCO3) 21 mmol/L Low 23-27 [facility] Comment on above: Performed By: #### 8 4511 ####[facility] CO2 39 mmHg Normal 35-45 [facility] Comment on above: Performed By: #### 8 4511 ####[facility] DELIVERY SYSTEMS VENTILATOR Normal [facility] Comment on above: Performed By: #### 8 4511 ####[facility] [facility] FIO2 40 % Normal 21-100 [facility] Comment on above: Performed By: #### 8 4511 ####[facility] IONIZED CALCIUM 1.14 mmol/L Normal 1.13-1.32 [facility] Comment on above: Performed By: #### 8 4511 ####[facility] [place] [address], [facility] MIN VOLUME 7.0 Normal [facility] Comment on above: Performed By: #### 8 4511 ####[facility] [place] [address], [facility] MODALITY AC Normal [facility] Comment on above: Performed By: #### 8 4511 ####[facility] [place] [address], [facility] O2 saturation 91.2 % Low 94.0-97.0 [facility] Comment on above: Performed By: #### 8 4511 ####[facility] [place] [address], [place] Oxygen in arterial blood 71 mm[Hg] Low 75-100 [facility] Comment on above: Performed By: #### 8 4511 ####[facility] [place] [address], [place] PEEP 5.0 CMH20 Normal [facility] Comment on above: Performed By: #### 8 4511 ####[facility] [place] [address], [place] PF RATIO 178 mmHg Normal 50-400 [facility] Comment on above: Performed By: #### 8 4511 ####[facility] [place] [address], [place] pH of blood 7.33 [pH] Low 7.35-7.45 [facility] Comment on above: Performed By: #### 8 4511 ####[facility] [place] [address], [place] Respiratory rate 14 /min Normal [facility] Comment on above: Performed By: #### 8 4511 ####[facility] [place] [address], [place] TIDAL VOLUME (VT) CC 500 Normal [facility] Comment on above: Performed By: #### 8 4511 ####[facility] [place] [address], [place] CPKon 03-18-2017 Creatine kinase (CK) 1402 U/L High 30-223 [facility] Comment on above: Order Comment: No: D o not add to previous draw Performed By: #### 5 0103 ####[facility] [place] [address], [facility] Creatine kinase (CK) 2807 U/L Critically high 30-223 [facility] Comment on above: Performed By: #### 3 9301, [address], [address] ####[facility] [place] [address], [facility] KEPPRA ILon 03-18-2017 [place] Normal [facility] Comment on above: Order Comment: Yes: Add to Previous draw if able KEPPRA <2 Normal [facility] Comment on above: Order Comment: Yes: Add to Previous draw if able Result Comment: A re ference range for Keppra has not been well established. The proposed therapeutic range for seizure control is 6-46 ug/mL. Pharmacokinetics of Keppra are affected by renal function. The relationship between serum concentrations and toxicity is not known. LACTATE BLOODon 03-18-2017 Lactate 0.7 mmol/L Normal .5-2.2 [facility] Comment on above: Order Comment: No: D o not add to previous drawNurse draw per TEJ Vela. Performed By: #### 5 0103 ####[facility] [place] [address], [facility] Lactate 2.4 mmol/L High .5-2.2 [facility] Comment on above: Order Comment: Other , right weakness left gaze pref Performed By: #### 1 0054 ####[facility] [place] [address], [facility] MYOGLOBINon 03-18-2017 Myoglobin 127 ng/mL High 0-90 [facility] Comment on above: Order Comment: No: D o not add to previous draw Result Comment: A DO UBLING OF VALUES FROM SERIAL BLOOD COLLECTIONS(1 - 2 HOURS APART) IS MORE INDICATIVE OF A M.I.THAN THE ABSOLUTE VALUE. Performed By: #### 5 0103 ####[facility] Myoglobin 395 ng/mL Critically high 0-90 [facility] Comment on above: Result Comment: A DO UBLING OF VALUES FROM SERIAL BLOOD COLLECTIONS(1 - 2 HOURS APART) IS MORE INDICATIVE OF A M.I.THAN THE ABSOLUTE VALUE. Performed By: #### 3 9301, [address], [address] ####[facility] [facility].[address] OSMOLALITY BLOODon 7 Osmolality 313 mOsm/kg High 285-305 [facility] Comment on above: Order Comment: Other , right weakness left gaze pref Performed By: #### 3 9301, [address], [address] ####[facility] Operative Reporton 7 Operative Report MR#: [id number] [facility] Name: Remington Barker Room #: CELINE [id number] Discharge Date: Birthdate: 1955 OPERATIVE REPORTDATE OF SURGERY: 03/18/2017SURGEON: Ale Zavala M.D.PROCEDURE: Right internal jugular triple lumen central venous catheterplacement.INDICATION: IV access.CONTRAINDICATIONS: No contraindications in this particular patient.Procedure is operated by Dr. Covarrubias with attending Dr. Zavala.CONSENT: Written consent was obtained before the procedure explainingrisks, benefits, and purpose. Brother was [id number] in this caseand signing .A time-out was completed and verifying the correct patient, site, andprocedure.PROCEDURAL SUMMARY: The patient was placed in supine Trendelenburgposition. The patient's right neck region was prepped and draped in thesterile fashion using chlorhexidine scrub. Anesthesia was achieved with 1%lidocaine and local anesthetic. The right internal jugular vein wasaccessed under ultrasound guidance using an introducer needle. Venous,nonpulsatile blood was withdrawn. The syringe was removed and a guidewirewas advanced into the introducer needle. A small incision was made at theskin surface with a scalpel. The introducer needle was exchanged for adilator over the guidewire. After appropriate dilation was obtained, thedilator was exchanged over the wire for a triple lumen central venouscatheter. The wire was removed and the catheter was sutured into place.The area was cleaned and a Tegaderm was applied. The patient tolerated theprocedure without any hemodynamic compromise. At the time of procedurecompletion, all ports aspirated and flushed properly. A chest x-ray wasobtained. Results are pending.COMPLICATIONS: None.ESTIMATED BLOOD LOSS: 10 mL.Electronically Signed by:Ale Zavala M.D. 03/21/2017 01:00 P Ale Zavala M.D. I was present for the entire procedure. Date Dict: 03/18/2017/03:38 P/Symone Gaona Trans: 03/18/2017 06:37 P/[id number]: Gasper Thurman D.O. [address] [place] [phone] [facility] Operative Report MR#: [id number] IUn [facility] Pt. Name: Remington Barker Room #: CELINE [id number] Discharge Date: Birthdate: 1955 OPERATIVE REPORTDATE OF SURGERY: 03/18/2017SURGEON: Ale Zavala M.D.PROCEDURE ACCOUNT RECEIVABLE CLERK: Dr. Jericho Wang.ATTENDING PHYSICIAN: Dr. Ale Zavala.PROCEDURE: Right radial arterial line placement.INDICATIONS: For continuous and accurate blood pressure monitoring.CONSENT: A written consent was obtained by the patient's brotherexplaining risks, benefits, and purpose of the procedure.A time-out was completed verifying the correct patient, procedure, site,and positioning of equipment.ANESTHESIA: Achieved with local 1% lidocaine solution.PROCEDURE SUMMARY: The patient was placed in a supine position. The rightwrist volar aspect was prepped and draped in a sterile manner using achlorhexidine scrub. The right radial artery was palpated and successfullycannulated using a 20-gauge introducer needle on the first pass utilizingultrasound guidance. Pulsatile arterial blood flow was visualized andusing the Seldinger technique, the catheter was placed without anydifficulty. Following, the catheter was connected to the monitoring systemand a good arterial waveform was observed on the monitor. Then thecatheter was sutured into place and a sterile dressing was applied. Thepatient tolerated the procedure well.COMPLICATIONS: None.ESTIMATED BLOOD LOSS: Less than 2 mL.Electronically Signed by:Ale Zavala M.D. 03/21/2017 01:00 P Ale Zavala M.D. I was present for the entire procedure. Date Dict: 03/18/2017/03:14 P/Symone Payton Trans: 03/18/2017 04:29 P/[id number]: Gasper Thurman D.O. [address] [place] [id number] Normal [facility] POC GLUCOSE LABon 03-18-2017 Glucose mass conc 99 mg/dL Normal 70-100 [facility] Comment on above: Performed By: #### 5 0103 ####[facility] [facility] [place] [address], [facility] Glucose mass conc 121 mg/dL High 70-100 [facility] Comment on above: Performed By: #### 8 5499 ####[facility] [facility] [place] [address], [facility] Glucose mass conc 152 mg/dL High 70-100 [facility] Comment on above: Performed By: #### 8 5499 ####[facility] [facility] [place] [address], [facility] Glucose mass conc 215 mg/dL High 70-100 [facility] Comment on above: Performed By: #### 8 5499 ####[address] PORTABLE CHEST 1 VIEWon 02-22 PORTABLE CHEST 1 VIEW [facility] CenterDepartment of [address] [place] [address] Patient Name: REMINGTON BARKER : 1955Sex: MAge: Race: WhiteMRN: [id number]. Location: [id number] Status: IVisit #: [id number] Date: 03/18/2017 3:30:00 PMCompleted Date: 03/18/2017 03:51 PMRequesting Provider: NANCY COVARRUBIAS Attending Provider: ALEXI LOWERY Report Copy To: Signs & Symptoms: Post Line PlacementHistory: Patient history not availableComments: Check Line Position, Uncomplicated procedure check placement. ; Call/page results to [id number]: PORTABLE CHEST 1 VIEWAccession #: [id number] PORTABLE CHEST 1 VIEW 03/18/2017 3:51 PM EDT SIGNS AND SYMPTOMS: Post Line Placement TECHNOLOGIST COMMENTS: Post line placement QUESTION FOR THE RADIOLOGIST: Check Line Position, Uncomplicated procedure check placement. ; Call/page results to [id number] PROTOCOL: AP(PA) view was obtained. COMPARISON: March 18 0443 hours FINDINGS: A right central line is been introduced in the distal superior vena cava near the sinoatrial junction. No pneumothorax is noted. ET tube is just above the mayuri and could be pulled back 2 cm. Feeding tube is in the stomach. The heart is probably normal in size considering degree of inspiration and AP technique. Mediastinum otherwise unremarkable. Left lung is clear. Decreasing airspace disease, right upper lung probably improving atelectasis. IMPRESSION: Satisfactory central line placement. Right upper lobe infiltrate and atelectasis, improving. Electronically signed by:Sunil Campbell. Transcribed by: [email or web address], User Resident: Electronically Signed by: SUNIL CAMPBELL @ 03/18/2017 03:55 PM Normal [facility] Comment on above: Order Comment: Check Line Position, Uncomplicated procedure check placement. ; Call/page results to [id number] PORTABLE CHEST 1 VIEW [facility] CenterDepartment of Dwpbkw[address]sl[address] [place] [address] Patient Name: REMINGTON BARKER : 1955Sex: MAge: Race: WhiteMRN: [id number]. Location: [id number] Status: IVisit #: [id number] Date: 03/18/2017 4:05:00 AMCompleted Date: 03/18/2017 04:57 AMRequesting Provider: DORENE PLATA Attending Provider: ALEXI LOWERY Report Copy To: Signs & Symptoms: Post IntubationHistory: Patient history not availableComments: Check E.T. PositionExam: PORTABLE CHEST 1 VIEWAccession #: [id number] PORTABLE CHEST 1 VIEW 03/18/2017 4:57 AM EDT SIGNS AND SYMPTOMS: Post Intubation TECHNOLOGIST COMMENTS: Post intubation; Check E.T tube position QUESTION FOR THE RADIOLOGIST: Check E.T. Position PROTOCOL: AP(PA) view was obtained. COMPARISON: None FINDINGS: Focal airspace consolidation right upper lobe consistent with pneumonia this was seen on previous CT scan of the neck. Endotracheal tube approximately 2.6 cm above the carinal angle in should be pulled back about 1.5 cm. Nasogastric tube tip below the diaphragm. Heart mediastinum are unremarkable. Right lung is clear. IMPRESSION: Right upper lobe pneumonia.Endotracheal tube 2.6 cm above mayuri should be pulled back about 1.5 cm. Electronically signed by:Giovanni Gabriel. Transcribed by: [email or web address], User Resident: Electronically Signed by: GIOVANNI GABRIEL @ 03/18/2017 09:41 AM Normal [facility] Comment on above: Order Comment: Other , right weakness left gaze pref VALPROIC ACIDon 03-18-2017 VALPROIC ACID (DEPAKOTE) 60 mcg/mL Normal 60-100 [facility] Comment on above: Performed By: #### 5 0103 ####[facility] AMMONIA BLOODon 03-17-2017 Ammonia 43 umol/L Normal 16-53 [facility] Comment on above: Performed By: #### 2 1408 ####[facility] CBC W/DIFFon 03-17-2017 Basophils Auto #/vol (Bld) 0.0 % Normal 0.0-2.0 [facility] Comment on above: Performed By: #### 5 0103 ####[facility] Eosinophils/100 leukocytes 0.0 % Normal 0.0-5.0 [facility] Comment on above: Performed By: #### 5 0103 ####[facility] Erythrocyte distribution width Auto Ratio (RBC) 13.5 % Normal 11.5-16.9 [facility] Comment on above: Performed By: #### 5 3 ####[facility] Erythrocytes (RBC) 5.48 mill/mm3 Normal 4.30-5.90 [facility] Comment on above: Performed By: #### 5 3 ####[facility] Hematocrit (HCT) 48.8 % Normal 39.0-55.0 [facility] Comment on above: Performed By: #### 102 ####[facility] Hemoglobin mass conc (Bld) 16.5 g/dL High 13.9-16.3 [facility] Comment on above: Performed By: #### 102 ####[facility] Lymphocytes/100 leukocytes 7.0 % Low 20.0-40.0 [facility] Comment on above: Performed By: #### 5 3 ####[facility] MCH 30.2 pg Normal 24.0-32.0 [facility] Comment on above: Performed By: #### 5 3 ####[facility] MCHC mass conc (RBC) 33.9 g/dL Normal 32.0-36.0 [facility] Comment on above: Performed By: #### 5 3 ####[facility] MCV 89.2 fL Normal 80.0-100.0 [facility] Comment on above: Performed By: #### 5 3 ####[facility] Street METHOD Manual blood smear e xamination performed Normal [facility] Comment on above: Performed By: #### 5 0103 ####[facility]3000 [facility].[address] MONOS 6.0 % Normal 2-8 [facility] Comment on above: Performed By: #### 5 0103 ####[facility].[address] OTHER 1 NORMAL RED CELL MORP HOLOGY SEEN Normal [facility] Comment on above: Performed By: #### 5 0103 ####[facility]3000 [facility].[address] PLAT CNT 212 Thou/mm3 Normal 100-400 [facility] Comment on above: Performed By: #### 5 0103 ####[facility]3000 [facility].[address] SEGS 87.0 % High 50-70 [facility] Comment on above: Performed By: #### 5 0103 ####[facility]3000 [facility].[address] WBC (Leukocytes) 16.9 Thou/mm3 High 4.0-10.0 [facility] Comment on above: Performed By: #### 5 0103 ####[facility]3000 [facility].[address] COMP METABOLIC PANELon 03-17 Alanine aminotransferase (ALT) 31 U/L Normal 7-52 [facility] Comment on above: Performed By: #### 0 0121, 32302, 55163, 07412 ####[facility]3000 [facility].[address] Albumin 3.9 g/dL Normal 3.5-5.7 [facility] Comment on above: Performed By: #### 0 0121, 08215, 07763, 56064 ####[facility] [place] [address], [facility] ALKALINE PHOSPH 59 IU/L Normal 34-104 [facility] Comment on above: Performed By: #### 0 0121, 50880, 08885, 00010 ####[facility] [place] [address], [facility] Aspartate aminotransferase (AST) 58 U/L High 13-39 [facility] Comment on above: Performed By: #### 0 0121, 17323, 71920, 50117 ####[facility] [place] [address], [facility] Bilirubin (total) 0.7 mg/dL Normal 0.3-1.0 [facility] Comment on above: Performed By: #### 0 0121, 55445, 44780, 76048 ####[facility] [place] [address], [facility] Calcium 8.4 mg/dL Low 8.6-10.3 [facility] Comment on above: Performed By: #### 0 0121, 42705, 00009, 82007 ####[facility] [place] [address], [facility] Chloride 109 mmol/L High 98-107 [facility] Comment on above: Performed By: #### 0 0121, 08581, 64986, 16877 ####[facility] [place] [address], [facility] CO2 20 mmol/L Low 21-31 [facility] Comment on above: Performed By: #### 0 0121, 52550, 57070, 02175 ####[facility] [place] [address], [place] Creatinine 1.32 mg/dL High 0.70-1.30 [facility] Comment on above: Performed By: #### 0 0121, 09347, 33122, 90639 ####[facility] [place] [address], [facility] eGFR (black) mL/min/{1.73_m2} Normal >60 [facility] Comment on above: Performed By: #### 0 0121, 74128, 86725, 33296 ####[facility] [place] [address], [facility] eGFR (non-black) 55 ml/min/1.73sq m Abnormal >60 [facility] Comment on above: Performed By: #### 0 0121, 41042, 19283, 47641 ####[facility] [place] [address], [facility] Glucose mass conc 210 mg/dL High 70-100 [facility] Comment on above: Performed By: #### 0 0121, 85280, 95075, 24329 ####[facility] [place] [address], [facility] Potassium molar conc 3.7 mmol/L Normal 3.5-5.1 [facility] Comment on above: Performed By: #### 0 0121, 37299, 15265, 81126 ####[facility] [place] [address], [facility] Protein 6.2 g/dL Normal 6.0-8.3 [facility] Comment on above: Performed By: #### 0 0121, 97552, 49696, 99234 ####[facility] [place] [address], [facility] Sodium 139 mmol/L Normal 136-145 [facility] Comment on above: Performed By: #### 0 0121, 10791, 37283, 47321 ####[facility] [place] [address], [place] Urea nitrogen 30 mg/dL High 7-25 [facility] Comment on above: Performed By: #### 0 0121, 33941, 91024, 28011 ####[facility] BRAIN PERFUSION 017 CT BRAIN PERFUSION [facility] Center[facility] [address] [place] [address] Patient Name: REMINGTON BARKER : 1955Sex: MAge: Race: WhiteMRN: [id number]. Location: EMERPatient Status: EVisit #: [id number] Date: 03/17/2017 5:20:00 PMCompleted Date: 03/17/2017 06:15 PMRequesting Provider: DONNA ADKINS Attending Provider: DONNA ADKINS Report Copy To: Signs & Symptoms: OtherHistory: Patient history not availableComments: Other, right weakness left gaze prefExam: CT BRAIN PERFUSIONAccession #: [id number] CT BRAIN PERFUSION, CTA NECK 03/17/2017 6:15 PM EDT SIGNS AND SYMPTOMS: Stroke alert, rt side weakness with aphasia today. QUESTION FOR THE RADIOLOGIST: Other, right weakness left gaze pref CONTRAST: Contrast: OMNIPAQUE 350 (LOCM), 50 milliliter, Intravenous (accession [id number]), Contrast: OMNIPAQUE 350 (LOCM), 70 milliliter, Intravenous (accession [id number]) TECHNIQUE: Multi-detector CT angiography head and neck were obtained during intravenous administration of IV contrast material. Initially noncontrast images of the head were obtained. Sagittal, coronal, and 3-D reconstructions were performed and viewed on a separate workstation. Appropriate CT dose lowering techniques were utilized. Perfusion imaging of the brain was performed. Dynamic acquisition CT perfusion images were obtained in 18 separate phases during and after administration of 50 mL Omnipaque 350 intravenously. Arterial and venous time activity curves were generated with regions of interest drawn over the arterial and venous circulations. Color maps for mean transit time, cerebral blood flow, cerebral perfusion, and time to peak perfusion were generated in the axial plane. Dynamic 3-D CT angiography images were reconstructed in sagittal coronal and axial plane and viewed on a separate workstation. COMPARISON: None FINDINGS: Noncontrast head CT: There is no shift of the midline structures, acute intracranial bleeding, mass effects, or evidence of acute ischemia. The ventricular system is normal in size. The brainstem and the cerebellum are unremarkable. The visualized intraorbital contents and the visualized soft tissue in the infratemporal spaces show no abnormality. The osseous structures in the skull base and the calvarium show no acute abnormality. Air-fluid levels are present in the maxillary and sphenoid sinuses. CTA Head: There are normal anterior and middle cerebral arteries. The anterior communicating artery is patent. The posterior communicating arteries are present. The superior cerebellar arteries, posterior inferior cerebellar arteries, and the basilar artery are within normal limits. The right posterior cerebral artery is diminutive with persistent origin. The deep venous system and dural venous systems are patent. CTA Neck: There is a normal 3-vessel arch. The subclavian arteries are normal in course and caliber. The vertebral arteries are normal in course and caliber arising from the subclavian arteries. V4 segment on the right is diminutive. The common and internal carotid arteries are normal in course and caliber. No acute osseous abnormalities are appreciated. Consolidation in the right upper lobe, most likely pneumonia. Perfusion: Parametric maps: CTP characteristics {for area of interest}: + CBF {cerebral blood flow}: Symmetric.+ MTT {mean transit time}: Symmetric.+ CBV {cerebral blood volume}: Symmetric. Vascular territory involved: None.Tissue involved: None. IMPRESSION: 1. No acute intracranial pathology. No evidence of focal stenosis, aneurysmal dilatation, dissection or occlusion. 2. Normal brain perfusion. 3. Right upper lobe pneumonia, infectious or aspiration. RESULTS WERE CALLED TO NEUROLOGY RESIDENT on 03/17/2017 6:15 PM EDT Electronically signed by:Jayashree Lin M.D.. Transcribed by: [email or web address], User Resident: Electronically Signed by: JAYASHREE LIN @ 03/17/2017 06:24 PM [place] [facility] Comment on above: Order Comment: Other , right weakness left gaze pref CTA NECKon 03-17-2017 CTA NECK [facility] CenterDepartment of [address] [place] [address] Patient Name: REMINGTON BARKER : 1955Sex: MAge: Race: WhiteMRN: [id number]. Location: EMERPatient Status: EVisit #: [id number] Date: 03/17/2017 5:20:00 PMCompleted Date: 03/17/2017 06:15 PMRequesting Provider: DONNA ADKINS Attending Provider: DONNA ADKINS Report Copy To: Signs & Symptoms: OtherHistory: Patient history not availableComments: right weakness left gaze pref, aphasiaExam: CTA NECKAccession #: [id number] CT BRAIN PERFUSION, CTA NECK 03/17/2017 6:15 PM EDT SIGNS AND SYMPTOMS: Stroke alert, rt side weakness with aphasia today. QUESTION FOR THE RADIOLOGIST: Other, right weakness left gaze pref CONTRAST: Contrast: OMNIPAQUE 350 (LOCM), 50 milliliter, Intravenous (accession [id number]), Contrast: OMNIPAQUE 350 (LOCM), 70 milliliter, Intravenous (accession [id number]) TECHNIQUE: Multi-detector CT angiography head and neck were obtained during intravenous administration of IV contrast material. Initially noncontrast images of the head were obtained. Sagittal, coronal, and 3-D reconstructions were performed and viewed on a separate workstation. Appropriate CT dose lowering techniques were utilized. Perfusion imaging of the brain was performed. Dynamic acquisition CT perfusion images were obtained in 18 separate phases during and after administration of 50 mL Omnipaque 350 intravenously. Arterial and venous time activity curves were generated with regions of interest drawn over the arterial and venous circulations. Color maps for mean transit time, cerebral blood flow, cerebral perfusion, and time to peak perfusion were generated in the axial plane. Dynamic 3-D CT angiography images were reconstructed in sagittal coronal and axial plane and viewed on a separate workstation. COMPARISON: None FINDINGS: Noncontrast head CT: There is no shift of the midline structures, acute intracranial bleeding, mass effects, or evidence of acute ischemia. The ventricular system is normal in size. The brainstem and the cerebellum are unremarkable. The visualized intraorbital contents and the visualized soft tissue in the infratemporal spaces show no abnormality. The osseous structures in the skull base and the calvarium show no acute abnormality. Air-fluid levels are present in the maxillary and sphenoid sinuses. CTA Head: There are normal anterior and middle cerebral arteries. The anterior communicating artery is patent. The posterior communicating arteries are present. The superior cerebellar arteries, posterior inferior cerebellar arteries, and the basilar artery are within normal limits. The right posterior cerebral artery is diminutive with persistent origin. The deep venous system and dural venous systems are patent. CTA Neck: There is a normal 3-vessel arch. The subclavian arteries are normal in course and caliber. The vertebral arteries are normal in course and caliber arising from the subclavian arteries. V4 segment on the right is diminutive. The common and internal carotid arteries are normal in course and caliber. No acute osseous abnormalities are appreciated. Consolidation in the right upper lobe, most likely pneumonia. Perfusion: Parametric maps: CTP characteristics {for area of interest}: + CBF {cerebral blood flow}: Symmetric.+ MTT {mean transit time}: Symmetric.+ CBV {cerebral blood volume}: Symmetric. Vascular territory involved: None.Tissue involved: None. IMPRESSION: 1. No acute intracranial pathology. No evidence of focal stenosis, aneurysmal dilatation, dissection or occlusion. 2. Normal brain perfusion. 3. Right upper lobe pneumonia, infectious or aspiration. RESULTS WERE CALLED TO NEUROLOGY RESIDENT on 03/17/2017 6:15 PM EDT Electronically signed by:Jayashree Lin M.D.. Transcribed by: [email or web address], User Resident: Electronically Signed by: JAYASHREE LIN @ 03/17/2017 06:24 PM Normal [facility] Comment on above: Order Comment: right weakness left gaze pref, aphasia HEMOGLOBIN A1Con 03-17-2017 Glucose mass conc 177 mg/dL High 70-126 [facility] Comment on above: Order Comment: Yes: Add to Previous draw if able Performed By: #### 5 0103 ####[facility] Hemoglobin A1c/Hemoglobin.tot al mass fraction (Bld) 7.8 % High 4.0-6.0 [facility] Comment on above: Order Comment: Yes: Add to Previous draw if able Performed By: #### 5 0103 ####[facility] [place] [address], [facility] KEPPRA ILon 03-17-2017 IL Normal [facility] KEPPRA 3 ug/mL Normal [facility] Comment on above: Result Comment: A re ference range for Keppra has not been well established. The proposed therapeutic range for seizure control is 6-46 ug/mL. Pharmacokinetics of Keppra are affected by renal function. The relationship between serum concentrations and toxicity is not known. LACTATE BLOODon 03-17-2017 Lactate 1.1 mmol/L Normal .5-2.2 [facility] Comment on above: Performed By: #### 1 0054 ####[facility] [place] [address], [facility] MAGNESIUM BLOODon 03-17-2017 Magnesium 2.2 mg/dL Normal 1.9-2.7 [facility] Comment on above: Performed By: #### 0 0121, 05342, 48356, 17317 ####[facility] MRI BRAIN WO CONTRASTon 02-22 MRI BRAIN WO CONTRAST [facility] CenterDepartment of [address] [place] [address] Patient Name: REMINGTON BARKER : 1955Sex: MAge: Race: WhiteMRN: [id number]. Location: EMERPatient Status: IVisit #: [id number] Date: 03/17/2017 6:35:00 PMCompleted Date: 03/17/2017 08:48 PMRequesting Provider: DONNA ADKINS Attending Provider: DONNA ADKINS Report Copy To: Signs & Symptoms: AphasiaHistory: Patient history not availableComments: R/O CVA, aphasia left preference right weaknessExam: MRI BRAIN WO CONTRASTAccession #: [id number] MRI BRAIN WO CONTRAST 03/17/2017 8:48 PM EDT SIGN AND SYMPTOMS: Aphasia TECHNOLOGIST COMMENTS: Patient found unresponsive by neighbor earlier today. Transfer from [facility]. Patient has right side weakness and seizure like episodes. H/o NIDDM,seizures QUESTION FOR RADIOLOGIST: R/O CVA, aphasia left preference right weakness PROTOCOL: The following pulse sequences were utilized when imaging the brain: sagittal T1, diffusion weighted imaging, axial T2 FLAIR, axial T2 fat-sat, axial T1, axial GRE. COMPARISON: Prior brain CT evaluation from earlier on the same day. FINDINGS: Extra axial spaces: Age appropriate.Hemorrhage: None.Ventricular system: Within normal limits.Basal cisterns: Within normal limits and not effaced.Cerebral parenchyma: Normal in signal with few small foci of increased signal intensity seen in the periventricular white matter suggesting microvascular ischemic disease.Midline shift: None..Cerebellum: Within normal limits.Brainstem: Within normal limits. OTHER: Calvarium: Normal marrow signal.Vascular system: Satisfactory flow voids within the anterior and posterior circulation.Visualized Paranasal sinuses: Air-fluid levels are seen in the sphenoid and right maxillary sinus suggesting acute sinusitis with also involvement of right posterior ethmoid air cellsVisualized Orbits: Within normal limits.Visualized upper cervical spine: Within normal limits.Sella and skull base: Within normal limits. IMPRESSION: No evidence of acute intracranial bleeding or infarct. Few foci of abnormal signal in the periventricular white matter suggesting microvascular ischemic disease. Acute sinus disease involving the right maxillary, sphenoid and posterior ethmoid air cells Electronically signed by:Ibrahima Garcia. Transcribed by: [email or web address], User Resident: Electronically Signed by: IBRAHIMA GARCIA @ 03/18/2017 11:02 AM Normal [facility] Comment on above: Order Comment: Other , right weakness left gaze pref PHOSPHORUS BLOODon 7 Phosphate 3.2 mg/dL Normal 2.5-5.0 [facility] Comment on above: Performed By: #### 0 0121, 29702, 64625, 91896 ####[facility] [place] [address], [facility] TSHon 03-17-2017 Thyroid stimulating hormone (TSH) 0.85 MICRO-IU/ML Normal 0.34-5.60 [facility] Comment on above: Performed By: #### 0 0121, 99792, 11163, 97828 ####[facility] [place] [address], [facility] Vital Signs Date Time Vital Sign Value Performing Clinician Facility 09-25-2023 09:050400 Body height 170.18 cm [facility] 09-25-2023 09:050400 Body mass index (BMI) [Ratio] 28 kg/m2 [facility] 09-25-2023 09:05-0400 Body weight 81.36 kg [facility] 09-25-2023 09:05-0400 Diastolic blood pressure 82 mm[Hg] [facility] 09-25-2023 09:05-0400 Heart rate 67 /min [facility] 09-25-2023 09:05-0400 Respiratory rate 12 /min [facility] 09-25-2023 09:05-0400 Systolic blood pressure 131 mm[Hg] [facility] 12-18-2022 09:00-0400 Body height 170.18 cm Gasper Ball Other [facility] [employer] Other 12-18-2022 09:00-0400 Body mass index (BMI) [Ratio] 28.69 kg/m2 Gasper Ball Other [employer] [facility] [employer] Other 12-18-2022 09:00-0400 Body weight 83.1 kg Gasper Ball Other [employer] [facility] [employer] Other 12-18-2022 09:00-0400 Diastolic blood pressure 88 mm[Hg] Gasper Ball Other [employer] Other 12-18-2022 09:00-0400 Respiratory rate 12 /min Gasper Ball Other [employer] Other 12-18-2022 09:00-0400 Systolic blood pressure 139 mm[Hg] Gasper Ball Other [employer] Other 09-17-2022 10:00-0400 Body height 170.18 cm Gasper Ball Other [employer] Other 09-17-2022 10:00-0400 Body mass index (BMI) [Ratio] 29.29 kg/m2 Gasper Ball Other [employer] Other 03-28-2023 10:00-0400 Body weight 84.82 kg Gasper Thurman Other [employer] Other 09-17-2022 10:00-0400 Diastolic blood pressure 73 mm[Hg] Gasper Thurman Other [employer] Other 09-17-2022 10:00-0400 Respiratory rate 12 /min Gasper Thurman Other [employer] Other 09-17-2022 10:00-0400 Systolic blood pressure 119 mm[Hg] Gasper Thurman Other [employer] Other Encounters Encounter Date Encounter Type Care Provider Facility Start: 09-25-2023 End: 09-25-2023 ambulatory [facility] Work Phone: Start: 09-25-2023 End: 09-25-2023 Patient encounter procedure [facility] Work Phone: Start: 06-30-2023 End: 06-30-2023 ambulatory Gasper Thurman Other [employer] Other Start: 06-30-2023 Telephone encounter Gasper Ball [facility] Start: 06-22-2023 End: 06-22-2023 ambulatory Gasper Thurman Other [employer] Other Start: 06-22-2023 Telephone encounter Gasper Ball [facility] Start: 06-05-2023 End: 06-05-2023 ambulatory Gasper Ball Other [employer] Other Start: 06-05-2023 Telephone encounter Gasper Ball [facility] Start: 03-18-2023 End: 03-18-2023 ambulatory Gasper Ball Other [employer] Other Start: 03-18-2023 Telephone encounter Gasper Ball [facility] Start: 12-18-2022 End: 12-18-2022 ambulatory Gasper Thurman Other [employer] Other Start: 12-18-2022 Office outpatient vi sit 25 minutes Gasper Thurman [facility] Start: 10-17-2022 End: 10-18-[address] GASPER THURMAN Facility:[facility] Start: 09-17-2022 End: 09-17-2022 ambulatory Gasper Thurman Other [employer] Other Start: 09-17-2022 Encounter for genera l adult medical examination without abnormal findings Gasper Thurman [facility] Start: 09-17-2022 Periodic preventive med est patient 65yrs& older Gasper Thurman [facility] Start: 09-15-2022 Encounter for genera l adult medical examination without abnormal findings DR GASPER THURMAN [facility] Start: 09-12-2022 End: 09-13-[address] GASPER THURMAN Facility:[facility] Start: 09-12-2022 End: 09-13-2022 Encounter for general adult medical examination without abnormal findings DR GASPER THURMAN Facility:[facility] Start: 06-20-2022 End: 06-20-[address] CADENCE THORNTON Facility:[facility] Start: 06-11-2022 End: 06-12-[address] GASPER THURMAN Facility:[facility] Start: 03-13-2022 Adult health examination Gasper Thurman Other [employer] Other Start: 03-08-2022 End: 03-09-[address] GASPER THURMAN Facility:[facility] Start: 11-07-2021 Patient encounter procedure [facility] Provider [facility] Start: 01-30-2021 End: 01-31-2021 ambulatory UNKNOWN PROVIDER Facility:[facility] Start: 01-12-2021 End: 01-12-2021 ambulatory UNKNOWN PROVIDER Facility:[facility] Start: 01-08-2021 End: 01-09-2021 [facility] Start: 01-08-2021 End: 01-08-2021 Subsequent hospital visit by physician [facility] Start: 01-01-2021 End: 01-02-2021 ambulatory [facility] Start: 01-01-2021 End: 01-01-2021 Subsequent hospital visit by physician [facility] Start: 12-22-2020 ambulatory UNKNOWN PROVIDER Facili ty:[facility] Start: 12-21-2020 ambulatory UNKNOWN PROVIDER Facili ty:[facility] Start: 12-20-2020 ambulatory UNKNOWN PROVIDER Facili ty:[facility] Start: 12-18-2020 ambulatory UNKNOWN PROVIDER Facili ty:[facility] Start: 12-17-2020 ambulatory UNKNOWN PROVIDER Facili ty:[facility] Start: 12-15-2020 ambulatory UNKNOWN PROVIDER Facili ty:[facility] Start: 12-14-2020 ambulatory UNKNOWN PROVIDER Facili ty:[facility] Start: 12-13-2020 ambulatory NESTOR LASINSKI Facilit y:[facility] Start: 12-11-2020 End: 12-11-2020 ambulatory UNKNOWN PROVIDER Facility:[facility] Start: 12-10-2020 ambulatory NESTOR LASINSKI Facilit y:[facility] Start: 12-08-2020 End: 12-08-2020 ambulatory NESTOR LASINSKI Facility:[facility] Start: 12-08-2020 End: 12-28-2020 Evaluation and management of inpatient IP PHYSICAL THERAPY SERVICE REQUEST Facility:[facility] Start: 03-17-2017 End: 03-28-2017 Evaluation and management of inpatient GASPER THURMAN Facility:[facility] Procedures Date Procedure Procedure Detail Performing Clinician Start: 09-12-[address] DAVIS [place] Comment on above: Performed By: #### P [facility] ####[facility] [address] [place], [place] [address]Uo. Gaetano Gore Start: 01-08-2021 Comprehensive metabo lic panel Yuko Hunt MD Work Phone: Start: 01-01-2021 Comprehensive metabo lic panel Yuko Hunt MD Work Phone: Start: 03-19-2017 Drainage of Spinal C anal, Percutaneous Approach, Diagnostic YUKO THORNE Start: 03-19-2017 FLUOROSCOPY OF SPINAL CORD YUKO THORNE Start: 03-18-2017 INSERTION OF ENDOTRA CHEAL AIRWAY INTO TRACHEA, VIA OPENING CHULA HEREDIA Start: 03-18-2017 INSERTION OF INFUSIO N DEV INTO SUP VENA CAVA, PERC APPROACH YUKO THORNE Start: 03-18-2017 INSERTION OF MONITOR ING DEVICE INTO UP ART, PERC APPROACH ALE ZAVALA Start: 03-18-2017 MEASURE OF ARTERIAL SATURATION, PERIPHERAL, PERC APPROACH ALEXI AHMADI Start: 03-18-2017 RESPIRATORY VENTILAT ION, GREATER THAN 96 CONSECUTIVE HOURS CHULA HEREDIA Start: 03-18-2017 Ultrasonography of R ight Jugular Veins, Guidance YUKO THORNE Start: 03-17-2017 MEASUREMENT OF WIRELESS RETAIL MANAGER E LECTR ACTIVITY, TELECOMMUNICATIONS CONSULTANT APPROACH ENRIQUE OSORIO Start: 03-17-2017 MONITORING OF WIRELESS RETAIL MANAGER EL ECTR ACTIVITY, TELECOMMUNICATIONS CONSULTANT APPROACH HOA CHANEL Start: 01-23-2017 General examination of patient Gasper Thurman Other Depression screening Cindi Thurman Other Screening for malign ant neoplasm of colon Gasper Thurman Other Plan of Treatment Date Care Activity Detail Author Start: 02-21-2022 Influenza vaccination INFLUENZA (Season Ended) [facility] Start: 01-08-2022 Creatinine measurement Creatinine monitoring [employer] Phone: Start: 01-08-2022 Potassium monitoring Potassium monitoring [employer] Phone: Start: 01-01-2022 Creatinine measurement Creatinine monitoring [employer] Phone: Start: 01-01-2022 Potassium monitoring Potassium monitoring [employer] Phone: Start: 2021 ADVANCE DIRECTIVE DISCUSSION ADVANCE DIRECTIVE DISCUSSION [facility] Start: 2021 PNEUMOVAX AGE 65 AND OVER WITH 5YR LOOKBACK (#1) PNEUMOVAX AGE 65 AND OVER WITH 5YR LOOKBACK (#1) [facility] Start: 02-21-2021 Influenza vaccination Flu vaccine (#1) [employer] Phone: Start: 2011 PROSTATE CANCER SCREENING DISCUSSION PROSTATE CANCER SCREENING DISCUSSION [facility] Start: 2006 Shingles Vaccine (1 of 2) Shingles Vaccine (1 of 2) [employer] Work Phone: Start: 2006 SHINGRIX VACCINE (1 of 2) SHINGRIX VACCINE (1 of 2) [facility] Start: 2001 COLOGUARD (FIT-DNA) COLOGUARD (FIT-DNA) [facility] Start: 2001 Colonoscopy COLONOSCOPY [facility] Start: 2001 COLORECTAL CANCER SCREENING COLORECTAL CANCER SCREENING [facility] Start: [address] COLONOGRAPHY [facility] Start: 2001 DIABETES SCREEN DIABETES SCREEN [facility] Start: 2001 FECAL OCCULT BLOOD FECAL OCCULT BLOOD [facility] Start: 2001 Screening for malignant neoplasm of colon Colon cancer screen colonoscopy [employer] Phone: Start: 2001 SIGMOIDOSCOPY SIGMOIDOSCOPY [facility] Start: 1991 LIPID SCREEN LIPID SCREEN [facility] Start: 1975 DTaP/Tdap/Td vaccine (1 - Tdap) DTaP/Tdap/Td vaccine (1 - Tdap) [employer] Phone: Start: 1975 Urine microalbumin profile DTAP,TDAP,TD (1 - Tdap) [facility] Start: 1974 Diabetic microalbuminuria test Diabetic microalbuminuria test [employer] Phone: Start: 1974 HEPATITIS C SCREENING HEPATITIS C SCREENING [facility] Start: 1974 HIV SCREENING HIV SCREENING [facility] Start: 1971 HIV screening HIV screen [employer] Phone: Start: 1968 Adult depression screening assessment DEPRESSION SCREENING [facility] Start: 1968 COVID-19 Vaccine (1) COVID-19 Vaccine (1) [employer] Phone: Start: 1966 Diabetic foot examination Diabetic foot exam [employer] Phone: Start: 1966 Diabetic retinal exam Diabetic retinal exam [employer] Phone: Start: 1966 Hemoglobin A1c measurement A1C test (Diabetic or Prediabetic) [employer] Phone: Start: 1966 Lipid panel Lipid screen [employer] Phone: Start: 1962 Pneumococcal 0-64 years Vaccine (1 of 2 - PPSV23) Pneumococcal 0-64 years Vaccine (1 of 2 - PPSV23) [employer] Phone: Start: 1961 COVID-19 VACCINE (#1) COVID-19 VACCINE (#1) [facility] Start: 1956 Hepatitis C screening Hepatitis C screen [employer] Phone: Immunizations Immunization Date Immunization Notes Care Provider Fa cility 07-26-2020 COVID-19 Vaccine Mod connor - Documentation Purposes Only Gasper Thurman Other [facility] 06-27-2020 COVID-19 Vaccine Mod connor - Documentation Purposes Only Gasper Thurman Other [facility] Payers Date Payer Category Payer [email or web address] [id number] 2020 Unknown MMO MMO [employer] [id number] 2020-Present [phone] [address] [place] [address] PPO [id number] 2017 Unknown [id number] 2016 Unknown [id number] 1956 Unknown [id number] 2.16.840.1.192290.3.579.2.1 73 1956 Unknown [id number] 2.16.840.1.774466.3.579.2.1 73 1956 Unknown [id number] 2.16.840.1.198362.3.579.2.7 32 1956 Unknown [id number] 2.16.840.1.774365.3.579.2.7 32 1956 Unknown [id number] 2.16.840.1.512068.3.579.2.7 32 1956 Unknown [id number] 2.16840.1.896957.3.579.2.7 32 1956 Unknown [id number] 2.16840.1.353173.3.579.2.7 32 1956 Unknown [id number] 2.16840.1.054711.3.579.2.7 32 1956 Unknown [id number] 2.16.840.1.956460.3.579.2.7 32 1956 Unknown [id number] 2.840.1.888764.3.579.2.7 32 1956 Unknown [id number] 2.840.1.704464.3.579.2.7 32 1956 Unknown [id number] 2.840.1.819079.3.579.2.7 32 1956 Unknown [id number] 2.840.1.398797.3.579.2.7 1956 Unknown [id number] 2.840.1.131638.3.579.2.7 32 1956 Unknown [id number] 2.840.1.833246.3.579.2.7 32 1956 Unknown [id number] 2.840.1.622567.3.579.2.7 32 1956 Unknown [id number] 2.16840.1.427432.3.579.2.7 1956 Unknown [id number] 2.16840.1.529433.3.579.2.7 32 1956 Unknown [id number] 2.840.1.041919.3.579.2.7 32 1956 Unknown [id number] 2.16.840.1.029981.3.579.2.7 32 1956 Unknown [id number] 2.16.840.1.493359.3.579.2.7 32 1956 Unknown [id number] 2.16.840.1.682809.3.579.2.7 32 1956 Unknown [id number] 2.16.840.1.772556.3.579.2.7 32 1956 Unknown [id number] 2.16.840.1.259527.3.579.2.7 32 1956 Unknown [id number] 2.16.840.1.979142.3.579.2.7 32 1956 Unknown [id number] 2.16.840.1.552931.3.579.2.5 93 1956 Unknown [id number] 2.16.840.1.680418.3.579.2.5 93 1956 Unknown [id number] 2.16.840.1.867807.3.579.2.5 93 1956 Unknown [id number] 2.16.840.1.660216.3.579.2.5 93 1956 Unknown [id number] 2.16.840.1.845477.3.579.2.5 93 Social History Date Type Detail Facility Start: 03-28-2017 Tobacco smoking status [facility] Unknown if ever smoked [facility] Start: 1955 Sex Assigned At Not on file [employer] Phone: Sex Assigned At Sex Assigned At [facility] [employer] Other Start: 1955 Sex Assigned At Male F [facility] Clinical Notes 11-24-2020 to 06-22-2023 Note Date & Type Note Facility 06-22-2023 Evaluation note Encounter Date Diagnosis Assessment Notes May, Type 2 diabetes mellitus with hyperglycemia , without long-term current use of insulin (ICD-10 - E11.65) [employer] Other 12-14-2023 Evaluation note* Encounter Date Diagnosis Assessment Notes Treatment Notes Treatment Clinical Notes May, Type 2 diabetes mellitus with hyperglycemia, without long-term current use of insulin (ICD-10 - E11.65) [employer] Other 12-14-2023 Evaluation note* Encounter Date Diagnosis Assessment Notes Treatment Notes Treatment Clinical Notes May, Elevated cholesterol (ICD-10 - E78.00) May, Primary hypertension (ICD-10 - I10) [employer] Other 09-26-2023 Evaluation note* Encounter Date Diagnosis Assessment Notes Treatment Notes Treatment Clinical Notes Feb, Type 2 diabetes mellitus with hyperglycemia, without long-term current use of insulin (ICD-10 - E11.65) [employer] Other 06-28-2023 Evaluation note* Encounter Date Diagnosis Assessment Notes Treatment Notes Treatment Clinical Notes Nov, Type 2 diabetes mellitus with hyperglycemia, without long-term current use of insulin (ICD-10 - E11.65) This patient is following a comprehensive diabetic treatment plan. They are checking their feet daily for calluses and nonhealing ulcers. They are being seen for yearly dilated eye examinations. Goals: SBP less than 130, LDL less than 100, FBS less than 140, AC and A1C less than 7%. They are checking their BS daily, will which are reviewed at the office visit. Continue regular routine monitoring of A1C,] Microalbumin, Dilated eye exam and Foot exam Nov, Type 2 diabetes mellitus with diabetic polyneuropathy, without long-term current use of insulin (ICD-10 - E11.42) Inspect feet daily for cuts and calluses.Recommend diabetic shoes and inserts to prevent callus formation.Fall precautions. Nov, Primary hypertension (ICD-10 - I10) This patient is instructed to consume a healthy, low-fat, low-salt diet. They are also encouraged to continue exercise to achieve/maintain a normal BMI. Nov, Elevated cholesterol (ICD-10 - E78.00) Instructed on diet and exercise with continued statin therapy.Discussed the beneficial effects of lowering cholesterol in reducing the risk for cerebrovascular and cardiovascular disease. Nov, Seizure disorder (ICD-10 - G40.909) No further seizure activity. He is no longer driving He has seen Neurology since his last OV, not changes [employer] Other 03-28-2023 Evaluation note* Encounter Date Diagnosis Assessment Notes Treatment Notes Treatment Clinical Notes Aug, Primary hypertension (ICD-10 - I10) This patient is instructed to consume a healthy, low-fat, low-salt diet. They are also encouraged to continue exercise to achieve/maintain a normal BMI. Aug, Wellness examination (ICD-10 - Z00.00) Healthy diet and exercise. Reviewed age-appropriate preventive testing recommended. Aug, Elevated cholesterol (ICD-10 - E78.00) Diet and exercise with continued statin therapy. Aug, Type 2 diabetes mellitus with hyperglycemia, without long-term current use of insulin (ICD-10 - E11.65) This patient is following a comprehensive diabetic treatment plan. They are checking their feet daily for calluses and nonhealing ulcers. They are being seen for yearly dilated eye examinations. Goals: SBP less than 130, LDL less than 100, FBS less than 140, AC and A1C less than 7%. They are checking their BS daily, will which are reviewed at the office visit. Aug, Type 2 diabetes mellitus with diabetic polyneuropathy, without long-term current use of insulin (ICD-10 - E11.42) Inspect feet daily for cuts and calluses.Recommend diabetic shoes and inserts to prevent callus formation.Fall precautions. Aug, Seizure disorder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
[2023-10-03 09:10] LABS: Alanine Aminotransferase 29 U/L (16-63); Albumin Level 3.4 g/dL (3.4-5.0); Alkaline Phosphatase 67 U/L (46-116); Anion Gap 14.5; Aspartate Amino Transferase 21 U/L (15-37); BUN Creatinine Ratio 22.1; Bilirubin Total 0.5 mg/dL (0.2-1.0); Carbon Dioxide 26.3 mmol/L (21.0-32.0); Chloride 105 mmol/L (98-107); Cholesterol 153 mg/dL (<=200); Estimated GFR (African America >60 (>=60); Estimated GFR (Non-African Ame >60 (>=60); Globulin 3.5 g/dL; Glucose 178 mg/dL (74-106); HDL Cholesterol 38 mg/dL (40-60); Potassium 4.8 mmol/L (3.5-5.1); Sodium 141 mmol/L (136-145); Thyroid Stimulating Hormone 3.307 uIU/mL (0.358-3.740); Total Protein 6.9 g/dL (6.4-8.2); Triglycerides 118 mg/dL (<=150); VLDL CHOLESTEROL 23.6 mg/dL
[2023-10-03 09:18] LABS: Basophils Percent Auto 0.5 % (0.2-2.0); Eosinophils Absolute Auto 0.1 10^3/uL (0.0-0.7); Hematocrit 44.8 % (42.0-54.0); Hemoglobin 14.5 g/dL (14.0-18.0); Immature Granulocytes Abs Auto 0.03 10^3/uL (0.00-0.03); Immature Granulocytes Pct Auto 0.5 % (0.0-0.5); Lymphocytes Absolute Auto 1.9 10^3/uL (1.2-3.8); Lymphocytes Percent Auto 30.8 % (20.5-60.0); Mean Corpuscular HGB Conc 32.4 g/dL (29.9-35.2); Mean Corpuscular Hemoglobin 30.5 pg (25.9-34.0); Mean Corpuscular Volume 94.1 fL (80.0-94.0); Mean Platelet Volume 9.7 fL (9.5-13.5); Monocytes Absolute Auto 0.6 10^3/uL (0.3-0.8); Monocytes Percent Auto 10.1 % (1.7-12.0); Neutrophils Absolute Auto 3.4 10^3/uL (1.4-6.5); Neutrophils Percent Auto 56.1 % (43.0-75.0); Platelet Count 161 10^3/uL (150-450); Red Blood Count 4.76 10^6/uL (4.70-6.10)
[2023-10-03 09:19] LABS: Prostate Specific Antigen Scrn 5.19 ng/mL (<=4.00)
[2023-10-03 09:32] LABS: Microalbumin Urine Random 4.7 mg/dL (<=30.0)
[2023-10-03 14:42] LABS: Estimated Average Glucose 192 mg/dL; Glycohemoglobin A1C 8.3 % (4.5-6.2)
== END 2023-10-03 06:29 | disposition home or self-care (01) ==
LOC: LAB 06:29
PROVIDERS: PCP Internal Medicine; Visit Provider Internal Medicine
DX: Z00.00 Encounter for general adult medical examination without abnormal findings (principal)
CPT/HCPCS: 36415; 80053; 80061; 82043; 83036; 84443; 85025; G0103

== ENCOUNTER 2023-11-11 14:02 | Outpatient (OUT) | payer BC, SELFPAY ==
[2023-11-12 04:09] LABS: PSA, Free 0.56 ng/mL; Prostate Specific Ag 4.2 ng/mL (0.0-4.0)
== END 2023-11-11 14:03 | disposition home or self-care (01) ==
LOC: LAB 14:02
PROVIDERS: PCP Internal Medicine; Visit Provider Internal Medicine
DX: R97.20 Elevated prostate specific antigen [PSA] (principal)
CPT/HCPCS: 36415; 84153; 84154

== ENCOUNTER 2024-03-29 06:54 | Day surgery (SDC) | payer BC, SELFPAY ==
--- OUTSIDE RECORDS SUMMARY | 2024-03-29 06:58 | XMS_ITS | CCD ---
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 [facility] MCHC Auto (RBC) [Mass/Vol]on 10-03-2023 MCHC (RBC) [Mass/Vol] 32.4 g/dL 29.9-35.2 [facility] MCV Auto (RBC) [Entitic vol] on 10-03-2023 MCV (RBC) [Entitic vol] 94.1 fL High 80.0-94.0 [facility] Microalbumin [Mass/volume] i n Urineon 10-03-2023 Albumin DL <= 20 mg/L (U) [Mass/Vol] 4.7 mg/dL <=30.0 [facility] Monocytes Auto (Bld) [#/Vol] on 10-03-2023 Monocytes (Bld) [#/Vol] 0.6 10 3/uL 0.3-0.8 [facility] Monocytes/100 WBC Auto (Bld) on 10-03-2023 Monocytes/100 WBC (Bld) 10.1 % 1.7-12.0 [facility] Neutrophils Auto (Bld) [#/Vo l]on 10-03-2023 Neutrophils (Bld) [#/Vol] 3.4 10 3/uL 1.4-6.5 [facility] Neutrophils/100 WBC Auto (Bl d)on 10-03-2023 Neutrophils/100 WBC (Bld) 56.1 % 43.0-75.0 [facility] No Panel Informationon 10-02 Eosinophils # (Auto) 0.1 10 3/uL 0.0-0.7 [facility] Immature Granulocyte # (Auto) 0.03 10 3/uL 0.00-0.03 [facility] Prostate Specific Antigen Screen 5.19 ng/mL High <=4.00 [facility] Platelet mean volume Auto (B ld) [Entitic vol]on 10-03-2023 Platelet mean volume (Bld) [Entitic vol] 9.7 fL 9.5-13.5 [facility] Platelets Auto (Bld) [#/Vol] on 10-03-2023 Platelets (Bld) [#/Vol] 161 10 3/uL 150-450 [facility] RBC Auto (Bld) [#/Vol]on RBC (Bld) [#/Vol] 4.76 10 6/uL 4.70-6.10 [facility] Serum or plasma albumin/glob ulin mass ratioon 10-03-2023 Albumin/Globulin [Mass ratio] 1.0 {ratio} [facility] Serum or plasma anion gap de terminationon 10-03-2023 Anion gap [Moles/Vol] 14.5 mmol/L [facility] Serum or plasma total choles terol/high density lipoprotein (HDL) cholesterol mass maurice 10-03-2023 Cholesterol.total/C holesterol in HDL [Mass ratio] 4.0 {ratio} [facility] Comment on above: 3.3 - 4.4 LOW RISK4. 4 - 7.1 AVERAGE RISK7.1 - 11.0 MODERATE RISK>11.0 HIGH RISK CBC AUTO DIFFon 09-12-2022 BASO # 0.0 103/ul Normal 0.0-0.1 [facility] Comment on above: Performed By: #### C BC #### [facility] [address] [address] [address] Gaetano Gore Basophils/100 WBC (Bld) 0.5 % Normal 0.2-2.0 [facility] Comment on above: Performed By: #### C BC #### [facility] [address] [address] [address] Gaetano Gore EO # 0.1 103/ul Normal 0.0-0.7 [facility] Comment on above: Performed By: #### C BC #### [facility] [address] [address] [address] Gaetano Gore Eosinophils/100 WBC (Bld) 1.5 % Normal 0.9-7.0 [facility] Comment on above: Performed By: #### C BC #### [facility] [address] [address] [address] Gaetano Gore Erythrocyte distribution width (RBC) [Ratio] 12.4 % Normal 11.0-15.0 [facility] Comment on above: Performed By: #### C BC #### [facility] [address] [place] [address] Dr. Gaetano Gore Hematocrit (Bld) [Volume fraction] 44.3 % Normal 42.0-54.0 [facility] Comment on above: Performed By: #### C BC #### [facility] [address] [address] [address] Gaetano Gore Hemoglobin (Bld) [Mass/Vol] 14.6 g/dL Normal 14.0-18.0 [facility] Comment on above: Performed By: #### C BC #### [facility] [address] [address] [address] Gaetano Gore IG # 0.03 10e3/ul Normal 0.00-0.03 [facility] Comment on above: Performed By: #### C BC #### [facility] [address] [place] [address] Dr. Gaetano Gore IG % 0.5 % Normal 0.0-0.5 [facility] Comment on above: Performed By: #### C BC #### [facility] [address] [place] [address] Dr. Gaetano Gore LYMPH # 1.7 103/ul Normal 1.2-3.8 [facility] Comment on above: Performed By: #### C BC #### [facility] [address] [place] [address] Dr. Gaetano Gore Lymphocytes/100 WBC (Bld) 31.6 % Normal 20.5-60.0 [facility] Comment on above: Performed By: #### C BC #### [facility] [address] [place] [address] Dr. Gaetano Gore MANUAL DIFF REQ NO Normal [facility] Comment on above: Performed By: #### C BC #### [facility] [address] [place] [address] Dr. Gaetano Gore MCH (RBC) [Entitic mass] 30.9 pg Normal 25.9-34.0 [facility] Comment on above: Performed By: #### C BC #### [facility] [address] [place] [address] Dr. Gaetano Gore MCHC (RBC) [Mass/Vol] 33.0 g/dL Normal 29.9-35.2 [facility] Comment on above: Performed By: #### C BC #### [facility] [address] [address] [address] Gaetano Gore MCV (RBC) [Entitic vol] 93.7 fL Normal 80.0-94.0 [facility] Comment on above: Performed By: #### C BC #### [facility] [address] [address] [address] Gaetano Gore MONO # 0.5 103/ul Normal 0.3-0.8 [facility] Comment on above: Performed By: #### C BC #### [facility] [address] [address] [address] Gaetano Gore Monocytes/100 WBC (Bld) 9.5 % Normal 1.7-12.0 [facility] Comment on above: Performed By: #### C BC #### [facility] [address] [place] [address] Dr. Gaetano Gore NEUT # 3.1 103/ul Normal 1.4-6.5 [facility] Comment on above: Performed By: #### C BC #### [facility] [address] [place] [address] Dr. Gaetano Gore Neutrophils/100 WBC (Bld) 56.4 % Normal 43.0-75.0 [facility] Comment on above: Performed By: #### C BC #### [facility] [address] [address] [address] Gaetano Gore Platelet mean volume (Bld) [Entitic vol] 9.2 fL Critically low 9.5-13.5 [facility] Comment on above: Performed By: #### C BC #### [facility] [address] [address] [address] Gaetano Gore PLT 141 103/ul Critically low 150-450 [facility] Comment on above: Performed By: #### C BC #### [facility] [address] [address] [address] Gaetano Gore RBC 4.73 106/ul Normal 4.70-6.10 [facility] Comment on above: Performed By: #### C BC #### [facility] [address] [address] [address] Gaetano Gore WBC 5.5 103/ul Normal 4.0-11.0 [facility] Comment on above: Performed By: #### C BC #### [facility] [address] [place] [address] Dr. Gaetano Gore GLYCOHEMOGLOBIN A1Con 2022 ADA RECOMMENDATION SEE BELOW Normal [facility] Comment on above: Result Comment: ADA RECOMMENDED LIMIT 4.0 - 6.0 ADA THERAPEUTIC TARGET < 7.0 ACTION SUGGESTED > 7.0 Performed By: #### A 1C #### [facility] [address] [place] [address] Dr. Gaetano Gore Glucose [Mass/Vol] 194 mg/dL Normal [facility] Comment on above: Performed By: #### A 1C #### [facility] [address] [place] [address] Dr. Gaetano Gore HbA1c (Bld) [Mass fraction] 8.4 % Critically high 4.5-6.2 [facility] Comment on above: Performed By: #### A 1C #### [facility] [address] [place] [address] Dr. Gaetano Gore LIPID PROFILEon 09-12-2022 CHOL-HDL RATIO NORM SEE BELOW Normal [facility] Comment on above: Result Comment: 3.3 - 4.4 LOW RISK 4.4 - 7.1 AVERAGE RISK 7.1 - 11.0 MODERATE RISK >11.0 HIGH RISK Performed By: #### L IPID, CMP, TSH #### [facility] [address] [place] [address] Dr. Gaetano Gore Cholesterol [Mass/Vol] 170 mg/dL Normal <=200 [facility] Comment on above: Performed By: #### L IPID, CMP, TSH #### [facility] [address] [place] [address] Dr. Gaetano Gore Cholesterol in HDL [Mass/Vol] 33 mg/dL Critically low 40-60 [facility] Comment on above: Performed By: #### L IPID, CMP, TSH #### [facility] [address] [place], [place] [address] Dr. Gaetano Gore Cholesterol in LDL [Mass/Vol] 110.0 mg/dL Normal [facility] Comment on above: Performed By: #### L IPID, CMP, TSH #### [facility] [address] [address] [address] Gaetano Gore Cholesterol.total/C holesterol in HDL [Mass ratio] 5.2 {ratio} Normal [facility] Comment on above: Performed By: #### L IPID, CMP, TSH #### [facility] [address] [address] [address] Gaetano Gore HDL NORMAL > or = 60 mg/dl - LO W CARDIOVASCULAR RISK <40 mg/dl - HIGH CARDIOVASCULAR RISK Normal [facility] Comment on above: Performed By: #### L IPID, CMP, TSH #### [facility] [address] [address] [address] Gaetano Gore LDL CALC NORMAL SEE BELOW Normal [facility] Comment on above: Result Comment: <100 mg/dl OPTIMAL 100 - 129 mg/dl NEAR OR ABOVE OPTIMAL 130 - 159 mg/dl BORDERLINE HIGH 160 - 189 mg/dl HIGH >190 mg/dl VERY HIGH Performed By: #### L IPID, CMP, TSH #### [facility] [address] [address] [address] Gaetano Gore Triglyceride [Mass/Vol] 135 mg/dL Normal <=150 [facility] Comment on above: Performed By: #### L IPID, CMP, TSH #### [facility] [address] [address] [address] Gaetano Gore VLDL CALC 27.0 mg/dL Normal [facility] Comment on above: Performed By: #### L IPID, CMP, TSH #### [facility] [address] [address] [address] Gaetano Gore PROF 14(COMP METB)on 023 Albumin [Mass/Vol] 3.8 g/dL Normal 3.4-5.0 [facility] Comment on above: Performed By: #### L IPID, CMP, TSH #### [facility] [address] [address] [address] Gaetano Gore Albumin/Globulin [Mass ratio] 1.3 {ratio} Normal [facility] Comment on above: Performed By: #### L IPID, CMP, TSH #### [facility] [address] [address] [address] Gaetano Gore ALP [Catalytic activity/Vol] 60 U/L Normal 46-116 [facility] Comment on above: Performed By: #### L IPID, CMP, TSH #### [facility] [address] [place] [address] Dr. Gaetano Gore ALT [Catalytic activity/Vol] 25 U/L Normal 16-63 [facility] Comment on above: Performed By: #### L IPID, CMP, TSH #### [facility] [address] [place] [address] Dr. Gaetano Gore Anion gap [Moles/Vol] 11.7 mmol/L Normal [facility] Comment on above: Performed By: #### L IPID, CMP, TSH #### [facility] [address] [place] [address] Dr. Gaetano Gore AST [Catalytic activity/Vol] 22 U/L Normal 15-37 [facility] Comment on above: Performed By: #### L IPID, CMP, TSH #### [facility] [address] [place] [address] Dr. Gaetano Gore Bilirubin [Mass/Vol] 0.5 mg/dL Normal 0.2-1.0 [facility] Comment on above: Performed By: #### L IPID, CMP, TSH #### [facility] [address] [place] [address] Dr. Gaetano Gore Calcium [Mass/Vol] 9.2 mg/dL Normal 8.5-10.1 [facility] Comment on above: Performed By: #### L IPID, CMP, TSH #### [facility] [address] [place] [address] Dr. Gaetano Gore Chloride [Moles/Vol] 106 mmol/L Normal 98-107 [facility] Comment on above: Performed By: #### L IPID, CMP, TSH #### [facility] [address] [address] [address] Gaetano Gore CO2 [Moles/Vol] 28.0 mmol/L Normal 21.0-32.0 [facility] Comment on above: Performed By: #### L IPID, CMP, TSH #### [facility] [address] [address] [address] Gaetano Gore Creatinine [Mass/Vol] 1.11 mg/dL Normal 0.70-1.30 [facility] Comment on above: Performed By: #### L IPID, CMP, TSH #### [facility] [address] [address] [address] Gaetano Gore EGFR-AF ANGOLAN >60 Normal >=60 [facility] Comment on above: Performed By: #### L IPID, CMP, TSH #### [facility] [address] [address] [address] Gaetano Gore EGFR-NON AF ANGOLAN >60 Normal >=60 [facility] Comment on above: Performed By: #### L IPID, CMP, TSH #### [facility] [address] [address] [address] Gaetano Gore Globulin (S) [Mass/Vol] 2.9 g/dL Normal [facility] Comment on above: Performed By: #### L IPID, CMP, TSH #### [facility] [address] [address] [address] Gaetano Gore Glucose [Mass/Vol] 143 mg/dL Critically high 74-106 [facility] Comment on above: Performed By: #### L IPID, CMP, TSH #### [facility] [address] [address] [address] Gaetano Gore Potassium [Moles/Vol] 4.7 mmol/L Normal 3.5-5.1 [facility] Comment on above: Performed By: #### L IPID, CMP, TSH #### [facility] [address] [address] [address] Gaetano Gore Protein [Mass/Vol] 6.7 g/dL Normal 6.4-8.2 [facility] Comment on above: Performed By: #### L IPID, CMP, TSH #### [facility] [address] [address] [address] Gaetano Gore Sodium [Moles/Vol] 141 mmol/L Normal 136-145 [facility] Comment on above: Performed By: #### L IPID, CMP, TSH #### [facility] [address] [address] [address] Gaetano Gore Urea nitrogen [Mass/Vol] 28.0 mg/dL Critically high 7.0-18.0 [facility] Comment on above: Performed By: #### L IPID, CMP, TSH #### [facility] [address] [place] [address] Dr. Gaetano Gore Urea nitrogen/Creatinine [Mass ratio] 25.2 mg/mg Normal [facility] Comment on above: Performed By: #### L IPID, CMP, TSH #### [facility] [address] [place] [address] Dr. Gaetano Gore TSHon 09-12-2022 TSH 2.326 uIU/mL Normal 0.358-3.74 0 [facility] Comment on above: Performed By: #### L IPID, CMP, TSH #### [facility] [address] [place] [address] FACIAL BONES WO [...] by: CADENCE THORNTON Date: 2022-06-20 13:03 Normal [facility] CT HEAD WO CONon 06-20-2022 CT HEAD [...] CADENCE THORNTON Date: 2022-06-20 12:17 Normal [facility] GLYCOHEMOGLOBIN A1Con 2021 ADA RECOMMENDATION SEE BELOW Normal [facility] Comment on above: Result Comment: ADA RECOMMENDED LIMIT 4.0 - 6.0 ADA THERAPEUTIC TARGET < 7.0 ACTION SUGGESTED > 7.0 Performed By: #### A 1C #### [facility] [address] [place] [address] Dr. Gaetano Gore Glucose [Mass/Vol] 171 mg/dL Normal [facility] Comment on above: Performed By: #### A 1C #### [facility] [address] [address] [address] Gaetano Gore HbA1c (Bld) [Mass fraction] 7.6 % Critically high 4.5-6.2 [facility] Comment on above: Performed By: #### A 1C #### [facility] [address] [place] [address] Dr. Gaetano Gore GLYCOHEMOGLOBIN A1Con 2021 ADA RECOMMENDATION SEE BELOW Normal [facility] Comment on above: Result Comment: ADA RECOMMENDED LIMIT 4.0 - 6.0 ADA THERAPEUTIC TARGET < 7.0 ACTION SUGGESTED > 7.0 Performed By: #### A 1C ####[facility] [id number] [id number] Gaetano Gore Glucose [Mass/Vol] 203 mg/dL Normal [facility] Comment on above: Performed By: #### A 1C ####[facility] [address] [place], [place] [address]Hj. Gaetano Gore HbA1c (Bld) [Mass fraction] 8.7 % Critically high 4.5-6.2 [facility] Comment on above: Performed By: #### A 1C ####[facility] [id number] [id number] Gaetano Gore Progress Noteson 01-30-2021 Electrical Maintenance Engineer Authentication Interface Message Text Normal [facility] Electrical Maintenance Engineer Authentication Interface Message Text .Patient was identified by name and date of . Janis Lai .Patient at risk for falls:No Falls Risk protocol implemented: No Pt accompanied by brother. Normal [facility] XR CHEST 2 VIEW PA+LATon XR CHEST 2 VIEW PA+LAT Normal [facility] Patient Instructionson 01-12 Electrical Maintenance Engineer Authentication Interface Message Text No specific neurosurgical follow up or imaging needed Normal [facility] Progress Noteson 01-12-2021 Electrical Maintenance Engineer Authentication Interface Message Text Normal [facility] CBCon 01-08-2021 Erythrocyte distribution width (RBC) [Ratio] 14.5 % High 11.8-14.4 [facility] Comment on above: Performed By: #### C P, CBC #### [facility] [address] [place] [address] Gunsmith Apprentice: Cadence Decker MD Hematocrit (Bld) [Volume fraction] 31.9 % Low 40.7-50.3 [facility] Comment on above: Performed By: #### C P, CBC #### [facility] [address] [place] [address] Gunsmith Apprentice: Cadence Decker MD Hemoglobin (Bld) [Mass/Vol] 9.5 g/dL Low 13.0-17.0 [facility] Comment on above: Performed By: #### C P, CBC #### [facility] [address] [place] [address] [place] [address] Gunsmith Apprentice: Cadence Decker MD MCH (RBC) [Entitic mass] 27.9 pg Normal 25.2-33.5 [facility] Comment on above: Performed By: #### C P, CBC #### [address] [place] [address] Gunsmith Apprentice: Cadence Decker MD MCHC (RBC) [Mass/Vol] 29.8 g/dL Normal 28.4-34.8 [facility] Comment on above: Performed By: #### C P, CBC #### [address] [place] [id number] Gunsmith Apprentice: Cadence Decker MD MCV (RBC) [Entitic vol] 93.5 fL Normal 82.6-102.9 [facility] Comment on above: Performed By: #### C P, CBC #### [address] [place] [address] Gunsmith Apprentice: Cadence Decker MD NRBC Automated 0.0 per 100 WBC Normal 0.0 [facility] Comment on above: Performed By: #### C P, CBC #### [address] [place], [facility] Gunsmith Apprentice: Cadence Decker MD Platelet mean volume (Bld) [Entitic vol] 8.8 fL Normal 8.1-13.5 [facility] Comment on above: Performed By: #### C P, CBC #### [address] [place] [address] Gunsmith Apprentice: Cadence Decker MD Platelets (Bld) [#/Vol] 252 10*3/uL Normal 138-453 [facility] Comment on above: Performed By: #### C P, CBC #### [facility] [address] [place] [address] Gunsmith Apprentice: Cadence Decker MD RBC (Bld) [#/Vol] 3.41 10*6/uL Low 4.21-5.77 [facility] Comment on above: Performed By: #### C P, CBC #### [facility] [address] [place] [address] Gunsmith Apprentice: Cadence Decker MD WBC (Bld) [#/Vol] 4.4 10*3/uL Normal 3.5-11.3 [facility] Comment on above: Performed By: #### C P, CBC #### [facility] [address] [place] [address] Gunsmith Apprentice: Cadence Decker MD CBCOrdered By: Yuko Hunt on 01-08-2021 Hematocrit (Bld) [Volume fraction] 31.9 % Low 40.7 - 50.3 % [employer] Phone: Hemoglobin.gastroin testinal spec 1 Ql (Stl) 9.5 g/dL Low 13.0 - 17.0 g/dL [email or web address] Phone: Interpretation and review of laboratory results Abnormal [employer] Phone: MCH (RBC) [Entitic mass] 27.9 pg 25.2 - 33.5 pg [facility] [email or web address] Phone: MCHC (RBC) [Mass/Vol] 29.8 g/dL 28.4 - 34.8 g/dL [employer] [employer] Phone: MCV (RBC) [Entitic vol] 93.5 fL 82.6 - 102.9 fL [employer] [employer] Phone: NRBC Automated 0.0 0.0 per 100 WBC [employer] [employer] Phone: Platelet distribution width (Bld) [Ratio] 14.5 % High 11.8 - 14.4 % [employer] [employer] Phone: Platelet mean volume (Bld) [Entitic vol] 8.8 fL 8.1 - 13.5 fL [employer] Phone: Platelets (Bld) [#/Vol] 252 10*3/uL [facility] [email or web address] Phone: RBC (Bld) [#/Vol] 3.41 10*6/uL Low 4.21 - 5.77 m/uL [facility] [email or web address] Phone: WBC (Bld) [#/Vol] 4.4 10*3/uL [facility] [email or web address] Phone: [facility] [email or web address] Phone: Comp Metabolic Profon 2020 (cont.) Normal [facility] Comment on above: Result Comment: Aver age GFR for 60-69 years old: 85 mL/min/1.73sq m Chronic Kidney Disease: <60 mL/min/1.73sq m Kidney failure: <15 mL/min/1.73sq m eGFR calculated using average adult body mass. Additional eGFR calculator available at: http://www.Plovgh/multiple_crcl_2012.htm Performed By: #### C P, CBC #### [facility] [address] [place] [address] Gunsmith Apprentice: Cadence Decker MD Albumin [Mass/Vol] 2.5 g/dL Low 3.5-5.2 [facility] Comment on above: Performed By: #### C P, CBC #### [facility] [address] [place] [address] Gunsmith Apprentice: Cadence Decker MD Albumin/Glob Ratio 0.6 Low 1.0-2.5 [facility] Comment on above: Performed By: #### C P, CBC #### [facility] [address] [place] [address] Gunsmith Apprentice: Cadence Decker MD Alkaline Phos 120 U/L Normal 40-129 [facility] Comment on above: Performed By: #### C P, CBC #### [facility] [address] [place] [address] Gunsmith Apprentice: Cadence Decker MD ALT [Catalytic activity/Vol] U/L Low 5-41 [facility] [facility] Comment on above: Performed By: #### C P, CBC #### [facility] [address] [place], [place] [id number] Gunsmith Apprentice: Cadence Decker MD Anion gap [Moles/Vol] 9 mmol/L Normal 9-17 [facility] Comment on above: Performed By: #### C P, CBC #### [facility] [address] [place], [place] [id number] Gunsmith Apprentice: Cadence Decker MD AST [Catalytic activity/Vol] 9 U/L Normal <40 [facility] Comment on above: Performed By: #### C P, CBC #### [facility] [address] [place] [address] Gunsmith Apprentice: Cadence Decker MD Bilirubin [Mass/Vol] 0.17 mg/dL Low 0.3-1.2 [facility] Comment on above: Performed By: #### C P, CBC #### [facility] [address] [place], [place] [id number] Gunsmith Apprentice: Cadence Decker MD BUN/CRE Ratio 28 High 9-20 [facility] Comment on above: Performed By: #### C P, CBC #### [facility] [address] [place] [address] Gunsmith Apprentice: Cadence Deckre MD Calcium [Mass/Vol] 8.4 mg/dL Low 8.6-10.4 [facility] Comment on above: Performed By: #### C P, CBC #### [facility] [address] [place] [address] [employer]smith Apprentice: Cadence Decker MD Chloride [Moles/Vol] 103 mmol/L Normal 98-107 [facility] Comment on above: Performed By: #### C P, CBC #### [facility] [address] [place] [address] Gunsmith Apprentice: Cadence Decker MD CO2 [Moles/Vol] 25 mmol/L Normal 20-31 [facility] Comment on above: Performed By: #### C P, CBC #### [facility] [address] [place], [place] [id number] Gunsmith Apprentice: Cadence Decker MD Creatinine [Mass/Vol] 0.61 mg/dL Low 0.70-1.20 [facility] Comment on above: Performed By: #### C P, CBC #### [facility] [address] [place] [address] Gunsmith Apprentice: Cadence Decker MD GFR, Amer >60 Normal >60 [facility] Comment on above: Performed By: #### C P, CBC #### [facility] [address] [place], [place] [id number] Gunsmith Apprentice: Cadence Decker MD GFR,non Amer >60 Normal >60 [facility] Comment on above: Performed By: #### C P, CBC #### [facility] [address] [place], [place] [address] Gunsmith Apprentice: Cadence Decker MD Glucose [Mass/Vol] 130 mg/dL High 70-99 [facility] Comment on above: Performed By: #### C P, CBC #### [facility] [address] [place] [address] Gunsmith Apprentice: Cadence Decker MD Potassium [Moles/Vol] 4.8 mmol/L Normal 3.7-5.3 [facility] Comment on above: Performed By: #### C P, CBC #### [facility] [address] [place] [address] Gunsmith Apprentice: Cadence Decker MD Protein [Mass/Vol] 6.7 g/dL Normal 6.4-8.3 [facility] Comment on above: Performed By: #### C P, CBC #### [facility] [address] [place] [address] Gunsmith Apprentice: Cadence Decker MD Sodium [Moles/Vol] 137 mmol/L Normal 135-144 [facility] Comment on above: Performed By: #### C P, CBC #### [address] [place] [address] Gunsmith Apprentice: Cadence Decker MD Staging: Normal [facility] Comment on above: Result Comment: Stag e 1: Some kidney damage normal GFR Stage 2: Mild kidney damage GFR 60-89 Stage 3: Moderate kidney damage GFR 30-59 Stage 4: Severe kidney damage GFR 15-29 Stage 5: Severe kidney damage GFR <15 ESRD - chronic treatment by dialysis or transplant Performed By: #### C P, CBC #### [address] [place] [address] Gunsmith Apprentice: Cadence Decker MD Urea nitrogen [Mass/Vol] 17 mg/dL Normal 8-23 [facility] Comment on above: Performed By: #### C P, CBC #### [facility] [address] [place] [address] Gunsmith Apprentice: Cadence Decker MD Comprehensive Metabolic Pane lOrdered By: Yuko Hunt on 01-08-2021 Albumin [Mass/Vol] 2.5 g/dL Low 3.5 - 5.2 g/dL [facility] Work Phone: Albumin/Globulin [Mass ratio] 0.6 {ratio} Low [facility] Work Phone: ALP (Bld) [Catalytic activity/Vol] 120 U/L 40 - 129 U/L [facility] Phone: ALT [Catalytic activity/Vol] U/L Low 5 - 41 U/L [facility] Phone: Anion gap [Moles/Vol] 9 mmol/L 9 - 17 mmol/L [facility] Phone: AST [Catalytic activity/Vol] 9 U/L <40 [facility] Phone: Bilirubin [Mass/Vol] 0.17 mg/dL Low 0.3 - 1.2 mg/dL [facility] Phone: Calcium [Mass/Vol] 8.4 mg/dL Low 8.6 - 10. 4 mg/dL [facility] Phone: Chloride [Moles/Vol] 103 mmol/L 98 - 107 mmol/L [facility] Phone: CO2 [Moles/Vol] 25 mmol/L 20 - 31 mmol/L [facility] Phone: Creatinine [Mass/Vol] 0.61 mg/dL Low 0.70 - 1.20 mg/dL [facility] Phone: Free PSA/Total PSA [Mass fraction] 6.7 g/dL 6.4 - 8.3 g/dL [facility] Phone: GFR >60 >60 mL/min [facility] Phone: GFR Non- >60 >60 mL/min [facility] Phone: Glucose [Mass/Vol] 130 mg/dL High 70 - 99 mg/dL [facility] Phone: Interpretation and review of laboratory results Abnormal [facility] Phone: Potassium [Moles/Vol] 4.8 mmol/L 3.7 - 5.3 mmol/L [facility] Phone: Sodium [Moles/Vol] 137 mmol/L 135 - 144 mmol/L [facility] Phone: Urea nitrogen (BldV) [Mass/Vol] 17 mg/dL 8 - 23 mg/dL [facility] Phone: Urea nitrogen/Creatinine (Bld) [Mass ratio] 28 High [facility] Phone: [facility] Phone: Laboratory - Chemistry and C hemistry - challengeOrdered By: Yuko Hunt on 01-08-2021 GFR/1.73 sq M.predicted MDRD (S/P/Bld) [Vol rate/Area] [facility] Phone: Comment on above: Average GFR for 60-6 9 years old: 85 mL/min/1.73sq m Chronic Kidney Disease: <60 mL/min/1.73sq m Kidney failure: <15 mL/min/1.73sq m eGFR calculated using average adult body mass. Additional eGFR calculator available at: http://www.Plovgh/multiple_crcl_2012.htm Stage 1: Some kidney damage normal GFR Stage 2: Mild kidney damage GFR 60-89 Stage 3: Moderate kidney damage GFR 30-59 Stage 4: Severe kidney damage GFR 15-29 Stage 5: Severe kidney damage GFR <15 ESRD - chronic treatment by dialysis or transplant CBCon 01-01-2021 Erythrocyte distribution width (RBC) [Ratio] 14.9 % High 11.8-14.4 [facility] Comment on above: Performed By: #### C P, CBC #### [facility] [address] [place] [address] Gunsmith Apprentice: Cadence Decker MD Hematocrit (Bld) [Volume fraction] 27.0 % Low 40.7-50.3 [facility] Comment on above: Performed By: #### C P, CBC #### [facility] [address] [place] [address] Gunsmith Apprentice: Cadence Decker MD Hemoglobin (Bld) [Mass/Vol] 8.1 g/dL Low 13.0-17.0 [facility] Comment on above: Performed By: #### C P, CBC #### [facility] [address] [place], [place] [address] Gunsmith Apprentice: Cadence Decker MD MCH (RBC) [Entitic mass] 28.6 pg Normal 25.2-33.5 [facility] Comment on above: Performed By: #### C P, CBC #### [facility] [address] [place], [facility]83 Gunsmith Apprentice: Cadence Decker MD MCHC (RBC) [Mass/Vol] 30.0 g/dL Normal 28.4-34.8 [facility] Comment on above: Performed By: #### C P, CBC #### [address] [place] [id number] Gunsmith Apprentice: Cadence Decker MD MCV (RBC) [Entitic vol] 95.4 fL Normal 82.6-102.9 [facility] Comment on above: Performed By: #### C P, CBC #### [address] [place], [facility]83 Gunsmith Apprentice: Cadence Decker MD NRBC Automated 0.0 per 100 WBC Normal 0.0 [facility] Comment on above: Performed By: #### C P, CBC #### [address] [place], [place] [address] Gunsmith Apprentice: Cadence Decker MD Platelet mean volume (Bld) [Entitic vol] 9.2 fL Normal 8.1-13.5 [facility] Comment on above: Performed By: #### C P, CBC #### [address] [place] [address] Gunsmith Apprentice: Cadence Decker MD Platelets (Bld) [#/Vol] 230 10*3/uL Normal 138-453 [facility] Comment on above: Performed By: #### C P, CBC #### [facility] [address] [place] [address] Gunsmith Apprentice: Cadence Decker MD RBC (Bld) [#/Vol] 2.83 10*6/uL Low 4.21-5.77 [facility] Comment on above: Performed By: #### C P, CBC #### [facility] [address] [place] [address] Gunsmith Apprentice: Cadence Decker MD WBC (Bld) [#/Vol] 5.0 10*3/uL Normal 3.5-11.3 [facility] Comment on above: Performed By: #### C P, CBC #### [facility] [address] [place] [address] Gunsmith Apprentice: Cadence Decker MD CBCOrdered By: Yuko Hunt on 01-01-2021 Hematocrit (Bld) [Volume fraction] 27.0 % Low 40.7 - 50.3 % [facility] Phone: Hemoglobin.gastroin testinal spec 1 Ql (Stl) 8.1 g/dL Low 13.0 - 17.0 g/dL [facility] Phone: Interpretation and review of laboratory results Abnormal [facility] Phone: MCH (RBC) [Entitic mass] 28.6 pg 25.2 - 33.5 pg [facility] Phone: MCHC (RBC) [Mass/Vol] 30.0 g/dL 28.4 - 34.8 g/dL [facility] Phone: MCV (RBC) [Entitic vol] 95.4 fL 82.6 - 102.9 fL [facility] Phone: NRBC Automated 0.0 0.0 per 100 WBC [facility] Phone: Platelet distribution width (Bld) [Ratio] 14.9 % High 11.8 - 14.4 % [facility] Phone: Platelet mean volume (Bld) [Entitic vol] 9.2 fL 8.1 - 13.5 fL [email or web address] Phone: Platelets (Bld) [#/Vol] 230 10*3/uL [email or web address] Phone: RBC (Bld) [#/Vol] 2.83 10*6/uL Low 4.21 - 5.77 m/uL [facility] Phone: WBC (Bld) [#/Vol] 5.0 10*3/uL [email or web address] Phone: [email or web address] Phone: Comp Metabolic Profon 2020 (cont.) Normal [facility] Comment on above: Result Comment: Aver age GFR for 60-69 years old: 85 mL/min/1.73sq m Chronic Kidney Disease: <60 mL/min/1.73sq m Kidney failure: <15 mL/min/1.73sq m eGFR calculated using average adult body mass. Additional eGFR calculator available at: http://www.Plovgh/multiple_crcl_2011.htm Performed By: #### C P, CBC #### [facility] [address] [place] [address] Gunsmith Apprentice: Cadence Decker MD Albumin [Mass/Vol] 2.3 g/dL Low 3.5-5.2 [facility] Comment on above: Performed By: #### C P, CBC #### [facility] [address] [place] [address] Gunsmith Apprentice: Cadence Decker MD Albumin/Glob Ratio 0.5 Low 1.0-2.5 [facility] Comment on above: Performed By: #### C P, CBC #### [facility] [address] [place] [address] Gunsmith Apprentice: Cadence Decker MD Alkaline Phos 96 U/L Normal 40-129 [facility] Comment on above: Performed By: #### C P, CBC #### [facility] [address] [place] [address] Gunsmith Apprentice: Cadence Decker MD ALT [Catalytic activity/Vol] 7 U/L Normal 5-41 [facility] Comment on above: Performed By: #### C P, CBC #### [facility] [address] [place] [address] Gunsmith Apprentice: Cadence Decker MD Anion gap [Moles/Vol] 9 mmol/L Normal 9-17 [facility] Comment on above: Performed By: #### C P, CBC #### [facility] [address] [place], [place] [address] Gunsmith Apprentice: Cadence Decker MD AST [Catalytic activity/Vol] 9 U/L Normal <40 [facility] Comment on above: Performed By: #### C P, CBC #### [facility] [address] [place], [place] [address] Gunsmith Apprentice: Cadence Decker MD Bilirubin [Mass/Vol] 0.19 mg/dL Low 0.3-1.2 [facility] Comment on above: Performed By: #### C P, CBC #### [facility] [address] [place] [address] Gunsmith Apprentice: Cadence Decker MD BUN/CRE Ratio 20 Normal 9-20 [facility] Comment on above: Performed By: #### C P, CBC #### [facility] [address] [place], [place] [address] Gunsmith Apprentice: Cadence Decker MD Calcium [Mass/Vol] 8.1 mg/dL Low 8.6-10.4 [facility] Comment on above: Performed By: #### C P, CBC #### [facility] [address] [place], [place] [address] Gunsmith Apprentice: Cadence Decker MD Chloride [Moles/Vol] 99 mmol/L Normal 98-107 [facility] Comment on above: Performed By: #### C P, CBC #### [facility] [address] [place], [place] [address] Gunsmith Apprentice: Cadence Decker MD CO2 [Moles/Vol] 25 mmol/L Normal 20-31 [facility] Comment on above: Performed By: #### C P, CBC #### [facility] [address] [place], [place] [address] Gunsmith Apprentice: Cadence Decker MD Creatinine [Mass/Vol] 0.61 mg/dL Low 0.70-1.20 [facility] Comment on above: Performed By: #### C P, CBC #### [facility] [address] [place], [place] [address] Gunsmith Apprentice: Cadence Decker MD GFR, Amer >60 Normal >60 [facility] Comment on above: Performed By: #### C P, CBC #### [facility] [address] [place], [place] [address] Gunsmith Apprentice: Cadence Decker MD GFR,non Amer >60 Normal >60 [facility] Comment on above: Performed By: #### C P, CBC #### [facility] [address] [place], [place] [address] Gunsmith Apprentice: Cadence Decker MD Glucose [Mass/Vol] 157 mg/dL High 70-99 [facility] Comment on above: Performed By: #### C P, CBC #### [facility] [address] [place] [address] Gunsmith Apprentice: Cadence Decker MD Potassium [Moles/Vol] 4.3 mmol/L Normal 3.7-5.3 [facility] Comment on above: Performed By: #### C P, CBC #### [facility] [address] [place] [address] Gunsmith Apprentice: Cadence Decker MD Protein [Mass/Vol] 6.7 g/dL Normal 6.4-8.3 [facility] Comment on above: Performed By: #### C P, CBC #### [facility] [address] [place] [address] Gunsmith Apprentice: Cadence Decker MD Sodium [Moles/Vol] 133 mmol/L Low 135-144 [facility] Comment on above: Performed By: #### C P, CBC #### [facility] [address] [place] [address] Gunsmith Apprentice: Cadence Decker MD Staging: Normal [facility] Comment on above: Result Comment: Stag e 1: Some kidney damage normal GFR Stage 2: Mild kidney damage GFR 60-89 Stage 3: Moderate kidney damage GFR 30-59 Stage 4: Severe kidney damage GFR 15-29 Stage 5: Severe kidney damage GFR <15 ESRD - chronic treatment by dialysis or transplant Performed By: #### C P, CBC #### [address] [place] [address] Gunsmith Apprentice: Cadence Decker MD Urea nitrogen [Mass/Vol] 12 mg/dL Normal 8-23 [facility] Comment on above: Performed By: #### C P, CBC #### [facility] [address] [place] [address] Gunsmith Apprentice: Cadence Decker MD Comprehensive Metabolic Pane lOrdered By: Yuko Hunt on 01-01-2021 Albumin [Mass/Vol] 2.3 g/dL Low 3.5 - 5.2 g/dL [facility] Work Phone: Albumin/Globulin [Mass ratio] 0.5 {ratio} Low [facility] Phone: ALP (Bld) [Catalytic activity/Vol] 96 U/L 40 - 129 U/L [facility] Phone: ALT [Catalytic activity/Vol] 7 U/L 5 - 41 U/L [facility] Phone: Anion gap [Moles/Vol] 9 mmol/L 9 - 17 mmol/L [facility] Phone: AST [Catalytic activity/Vol] 9 U/L <40 [facility] Phone: Bilirubin [Mass/Vol] 0.19 mg/dL Low 0.3 - 1.2 mg/dL [facility] Phone: Calcium [Mass/Vol] 8.1 mg/dL Low 8.6 - 10. 4 mg/dL [facility] Phone: Chloride [Moles/Vol] 99 mmol/L 98 - 107 mmol/L [facility] Phone: CO2 [Moles/Vol] 25 mmol/L 20 - 31 mmol/L [facility] Phone: Creatinine [Mass/Vol] 0.61 mg/dL Low 0.70 - 1.20 mg/dL [facility] Phone: Free PSA/Total PSA [Mass fraction] 6.7 g/dL 6.4 - 8.3 g/dL [facility] Phone: GFR >60 >60 mL/min [facility] Phone: GFR Non- >60 >60 mL/min [facility] Phone: Glucose [Mass/Vol] 157 mg/dL High 70 - 99 mg/dL [facility] Phone: Interpretation and review of laboratory results Abnormal [facility] Phone: Potassium [Moles/Vol] 4.3 mmol/L 3.7 - 5.3 mmol/L [facility] Phone: Sodium [Moles/Vol] 133 mmol/L Low 135 - 144 mmol/L [facility] Phone: Urea nitrogen (BldV) [Mass/Vol] 12 mg/dL 8 - 23 mg/dL [facility] Phone: Urea nitrogen/Creatinine (Bld) [Mass ratio] 20 [facility] Phone: [facility] Phone: Laboratory - Chemistry and C hemistry - challengeOrdered By: Yuko Hunt on 01-01-2021 GFR/1.73 sq M.predicted MDRD (S/P/Bld) [Vol rate/Area] [facility] Phone: Comment on above: Average GFR for 60-6 9 years old: 85 mL/min/1.73sq m Chronic Kidney Disease: <60 mL/min/1.73sq m Kidney failure: <15 mL/min/1.73sq m eGFR calculated using average adult body mass. Additional eGFR calculator available at: http://www.Plovgh/multiple_crcl_2012.htm Stage 1: Some kidney damage normal GFR Stage 2: Mild kidney damage GFR 60-89 Stage 3: Moderate kidney damage GFR 30-59 Stage 4: Severe kidney damage GFR 15-29 Stage 5: Severe kidney damage GFR <15 ESRD - chronic treatment by dialysis or transplant COMPLETE BLOOD COUNTon 12-28 Erythrocyte distribution width (RBC) [Ratio] 15.5 % High 11.5-14.5 [facility] Comment on above: Performed By: #### C BC ####S PATHOLOGY [id number] [place], [place], Hematocrit (Bld) [Volume fraction] 23.2 % Low 41.0-53.0 [facility] Comment on above: Performed By: #### C BC ####[facility] [id number] [place], [place], Hemoglobin (Bld) [Mass/Vol] 7.7 g/dL Low 13.9-16.3 [facility] Comment on above: Performed By: #### C BC ####[facility] [id number] [place], [place], MCH (RBC) [Entitic mass] 29.9 pg Normal 26.0-34.0 [facility] Comment on above: Performed By: #### C BC ####[facility] PATHOLOGY [id number] [place], [place], MCHC (RBC) [Mass/Vol] 33.2 g/dL Normal 32.0-35.9 [facility] Comment on above: Performed By: #### C BC ####[facility] PATHOLOGY [id number] [place], [place], MCV (RBC) [Entitic vol] 90 fL Normal 80-100 [facility] Comment on above: Performed By: #### C BC ####S PATHOLOGY [id number] [place], [place], Platelet mean volume (Bld) [Entitic vol] 6.9 fL Low 7.5-11.2 [facility] Comment on above: Performed By: #### C BC ####[facility] PATHOLOGY [id number] [place], [place], Platelets (Bld) [#/Vol] 231 10*3/uL Normal 150-400 [facility] Comment on above: Performed By: #### C BC ####[facility] PATHOLOGY [id number] [place], RBC (Bld) [#/Vol] 2.58 10*6/uL Low 4.50-5.90 [facility] Comment on above: Performed By: #### C BC ####[facility] PATHOLOGY [id number] [place], WBC (Bld) [#/Vol] 5.4 10*3/uL Normal 4.5-11.5 [facility] Comment on above: Performed By: #### C BC ####S PATHOLOGY [id number] [place], [place], Care Plan Noteon 12-28-2020 Electrical Maintenance Engineer Authentication Interface Message Text Normal [facility] 12-28-2020 Electrical Maintenance Engineer Authentication Interface Message Text Normal [facility] Discharge Planning Noteon Electrical Maintenance Engineer Authentication Interface Message Text Normal [facility] GLUCOSE, FINGERSTICK-IN OFFI CEon 12-28-2020 Glucose [Mass/Vol] 186 mg/dL High 80-116 [facility] Comment on above: Performed By: #### 8 2948 ####NURSING GLUCOSE [id number] [place], [address] Glucose [Mass/Vol] 266 mg/dL High 80-116 [facility] Comment on above: Performed By: #### 8 2948 ####NURSING GLUCOSE [id number] [place], [address] Progress Noteson 12-28-2020 Electrical Maintenance Engineer Authentication Interface Message Text Report called to [facility]. Normal [facility] Electrical Maintenance Engineer Authentication Interface Message Text SW informed by admissions at [facility] that pre-cert has been obtained. SW to set up transport via [employer]. YUNIEL Sanderson Social Work Normal [facility] Electrical Maintenance Engineer Authentication Interface Message Text Normal [facility] Care Plan Noteon 12-27-2020 Electrical Maintenance Engineer Authentication Interface Message Text Normal [facility] Electrical Maintenance Engineer Authentication Interface Message Text Normal [facility]son 12-27-2020 Electrical Maintenance Engineer Authentication Interface Message Text Normal [facility] GLUCOSE, FINGERSTICK-IN OFFI CEon 12-27-2020 Glucose [Mass/Vol] 215 mg/dL High 80-116 [facility] Comment on above: Performed By: #### 8 2948 ####NURSING GLUCOSE [id number] [place], [address] Glucose [Mass/Vol] 279 mg/dL High 80-116 [facility] Comment on above: Performed By: #### 8 2948 ####NURSING GLUCOSE [id number] [place], [address] Glucose [Mass/Vol] 213 mg/dL High 80-116 [facility] Comment on above: Performed By: #### 8 2948 ####NURSING GLUCOSE [id number] [place], [address] Progress Noteson 12-27-2020 Electrical Maintenance Engineer Authentication Interface Message Text Normal [facility] Electrical Maintenance Engineer Authentication Interface Message Text Normal [facility] Electrical Maintenance Engineer Authentication Interface Message Text Normal [facility] Care Plan Noteon 12-26-2020 Electrical Maintenance Engineer Authentication Interface Message Text Normal [facility] Consultson 12-26-2020 Electrical Maintenance Engineer Authentication Interface Message Text Normal [facility] Electrical Maintenance Engineer Authentication Interface Message Text Normal [facility] GLUCOSE, FINGERSTICK-IN OFFI 12-26-2020 Glucose [Mass/Vol] 240 mg/dL High 80-116 [facility] Comment on above: Performed By: #### 8 2948 ####NURSING GLUCOSE [id number] [place], [address] Glucose [Mass/Vol] 171 mg/dL High 80-116 [facility] Comment on above: Performed By: #### 8 2948 ####NURSING GLUCOSE [id number] [place], [address] Glucose [Mass/Vol] 215 mg/dL High 80-116 [facility] Comment on above: Performed By: #### 8 2948 ####NURSING GLUCOSE [id number] [place], [address] Glucose [Mass/Vol] 151 mg/dL High 80-116 [facility] Comment on above: Performed By: #### 8 2948 ####NURSING GLUCOSE [id number] [place], [address] Progress Noteson 12-26-2020 Electrical Maintenance Engineer Authentication Interface Message Text Normal [facility] Electrical Maintenance Engineer Authentication Interface Message Text Normal [facility] Electrical Maintenance Engineer Authentication Interface Message Text Normal [facility] Care Plan Noteon 12-25-2020 Electrical Maintenance Engineer Authentication Interface Message Text Normal [facility] GLUCOSE, FINGERSTICK-IN OFFI 12-25-2020 Glucose [Mass/Vol] 209 mg/dL High 80-116 [facility] Comment on above: Performed By: #### 8 2948 ####NURSING GLUCOSE [id number] [place], [address] Glucose [Mass/Vol] 193 mg/dL High 80-116 [facility] Comment on above: Performed By: #### 8 2948 ####NURSING GLUCOSE [id number] [place], [address] Glucose [Mass/Vol] 150 mg/dL High 80-116 The [facility] Comment on above: Performed By: #### 8 2948 ####NURSING GLUCOSE [id number] [place], [address] Glucose [Mass/Vol] 96 mg/dL Normal 80-116 [facility] Comment on above: Performed By: #### 8 2948 ####NURSING GLUCOSE [id number] [place], [address] Glucose [Mass/Vol] 142 mg/dL High 80-116 [facility] Comment on above: Performed By: #### 8 2948 ####NURSING GLUCOSE [id number] [place], [address] Progress Noteson 12-25-2020 Electrical Maintenance Engineer Authentication Interface Message Text Normal [facility] Electrical Maintenance Engineer Authentication Interface Message Text Normal [facility] Electrical Maintenance Engineer Authentication Interface Message Text Normal [facility] Care Plan Noteon 12-24-2020 Electrical Maintenance Engineer Authentication Interface Message Text Normal [facility] Consultson 12-24-2020 Electrical Maintenance Engineer Authentication Interface Message Text Normal [facility] GLUCOSE, FINGERSTICK-IN OFFI CEon 12-24-2020 Glucose [Mass/Vol] 211 mg/dL High 80-116 [facility] Comment on above: Performed By: #### 8 2948 ####NURSING GLUCOSE [id number] [place], [address] Glucose [Mass/Vol] 206 mg/dL High 80-116 [facility] Comment on above: Performed By: #### 8 2948 ####NURSING GLUCOSE [id number] [place], [address] Glucose [Mass/Vol] 102 mg/dL Normal 80-116 [facility] Comment on above: Performed By: #### 8 2948 ####NURSING GLUCOSE [id number] [place], [address] Glucose [Mass/Vol] 66 mg/dL Low 80-116 [facility] Comment on above: Performed By: #### 8 2948 ####NURSING GLUCOSE [id number] [place], [address] Glucose [Mass/Vol] 159 mg/dL High 80-116 [facility] Comment on above: Performed By: #### 8 2948 ####NURSING GLUCOSE [id number] [place], [address] Progress Noteson 12-24-2020 Electrical Maintenance Engineer Authentication Interface Message Text Normal The [facility] Electrical Maintenance Engineer Authentication Interface Message Text Normal [facility] BASIC METABOLIC PANELon Anion gap [Moles/Vol] 11 mmol/L Normal 5-13 [facility] Comment on above: Performed By: #### C H8, MG ####[facility] PATHOLOGY [id number] [place], Calcium [Mass/Vol] 7.2 mg/dL Low 8.4-10.4 [facility] Comment on above: Performed By: #### C H8, MG ####[facility] PATHOLOGY [id number] [place], Chloride [Moles/Vol] 100 mmol/L Normal 97-111 [facility] Comment on above: Performed By: #### C H8, MG ####[facility] PATHOLOGY [id number] [place], CO2 [Moles/Vol] 29 mmol/L Normal 21-30 [facility] Comment on above: Performed By: #### C H8, MG ####[facility] PATHOLOGY [id number] [place], Creatinine [Mass/Vol] 0.71 mg/dL Low 0.80-1.[address] [facility] Comment on above: Performed By: #### C H8, MG ####[facility] PATHOLOGY [id number] [place], ESTIMATED GFR (CKD-EPI) 99 mL/min/1.73sqm Normal >=60 [facility] Comment on above: Performed By: #### C H8, MG ####[facility] PATHOLOGY [id number] [place], Glucose [Mass/Vol] 177 mg/dL High 80-116 [facility] Comment on above: Performed By: #### C H8, MG ####[facility] PATHOLOGY [id number] [place], Potassium [Moles/Vol] 4.3 mmol/L Normal 3.3-5.3 [facility] Comment on above: Performed By: #### C H8, MG ####S PATHOLOGY [id number] [place], Sodium [Moles/Vol] 136 mmol/L Normal 135-148 [facility] Comment on above: Performed By: #### C H8, MG ####S PATHOLOGY [id number] [place], Urea nitrogen [Mass/Vol] 13 mg/dL Normal 8-22 [facility] Comment on above: Performed By: #### C H8, MG ####S PATHOLOGY [id number] [place], COMPLETE BLOOD COUNTon 12-23 Erythrocyte distribution width (RBC) [Ratio] 15.7 % High 11.5-14.5 [facility] Comment on above: Performed By: #### C BC ####[facility] PATHOLOGY [id number] [place], Hematocrit (Bld) [Volume fraction] 21.6 % Low 41.0-53.0 [facility] Comment on above: Performed By: #### C BC ####[facility] PATHOLOGY [id number] [place], Hemoglobin (Bld) [Mass/Vol] 7.2 g/dL Low 13.9-16.3 [facility] Comment on above: Performed By: #### C BC ####S PATHOLOGY [id number] [place], MCH (RBC) [Entitic mass] 29.8 pg Normal 26.0-34.0 [facility] Comment on above: Performed By: #### C BC ####S PATHOLOGY SFMYFFJKLJ3404 [place], MCHC (RBC) [Mass/Vol] 33.1 g/dL Normal 32.0-35.9 [facility] Comment on above: Performed By: #### C BC ####S PATHOLOGY [id number] [place], MCV (RBC) [Entitic vol] 90 fL Normal 80-100 [facility] Comment on above: Performed By: #### C BC ####[facility] PATHOLOGY [id number] [place], Platelet mean volume (Bld) [Entitic vol] 6.5 fL Low 7.5-11.2 [facility] Comment on above: Performed By: #### C BC ####[facility] PATHOLOGY [id number] [place], Platelets (Bld) [#/Vol] 288 10*3/uL Normal 150-400 [facility] Comment on above: Performed By: #### C BC ####[facility] PATHOLOGY [id number] [place], RBC (Bld) [#/Vol] 2.41 10*6/uL Low 4.50-5.90 [facility] Comment on above: Performed By: #### C BC ####[facility] PATHOLOGY [id number] [place], WBC (Bld) [#/Vol] 6.8 10*3/uL Normal 4.5-11.5 [facility] Comment on above: Performed By: #### C BC ####[facility] PATHOLOGY [id number] [place], Care Plan Noteon 12-23-2020 Electrical Maintenance Engineer Authentication Interface Message Text Normal [facility] GLUCOSE, FINGERSTICK-IN OFFI CEon 12-23-2020 Glucose [Mass/Vol] 139 mg/dL High 80-116 [facility] Comment on above: Performed By: #### 8 2948 ####NURSING GLUCOSE [id number] [place], [address] Glucose [Mass/Vol] 112 mg/dL Normal 80-116 [facility] Comment on above: Performed By: #### 8 2948 ####NURSING GLUCOSE [id number] [place], [address] Glucose [Mass/Vol] 206 mg/dL High 80-116 [facility] Comment on above: Performed By: #### 8 2948 ####NURSING GLUCOSE [id number] [place], [address] Glucose [Mass/Vol] 115 mg/dL Normal 80-116 [facility] Comment on above: Performed By: #### 8 2948 ####NURSING GLUCOSE [id number] [place], [address] Glucose [Mass/Vol] 172 mg/dL High 80-116 [facility] Comment on above: Performed By: #### 8 2948 ####NURSING GLUCOSE [id number] [place], [address] HEMOGLOBIN A1Con 12-23-2020 Glucose [Mass/Vol] 143 mg/dL Normal [facility] Comment on above: Order Comment: HbA1c of 5.7-6.4% have increased risk for diabetes and CV(Source :ADA 2014 Standard of Medical Care in Diabetes) Performed By: #### H B A1C ####[facility] [address] [place], [address] HbA1c (Bld) [Mass fraction] 6.6 % High 4.0-5.6 [facility] Comment on above: Order Comment: HbA1c of 5.7-6.4% have increased risk for diabetes and CV(Source :ADA 2014 Standard of Medical Care in Diabetes) Performed By: #### H B A1C ####[facility] [address] [place], [address] MAGNESIUMon 12-23-2020 Magnesium [Mass/Vol] 1.9 mg/dL Normal 1.6-2.8 [facility] Comment on above: Performed By: #### C H8, MG ####[facility] PATHOLOGY [id number] [place], Progress Noteson 12-23-2020 Electrical Maintenance Engineer Authentication Interface Message Text Normal [facility] Electrical Maintenance Engineer Authentication Interface Message Text Normal [facility] BASIC METABOLIC PANELon 07-0 Anion gap [Moles/Vol] 10 mmol/L Normal 5-13 [facility] Comment on above: Performed By: #### Rosa Wells, CH8 ####[facility] PATHOLOGY [id number] [place], Calcium [Mass/Vol] 7.4 mg/dL Low 8.4-10.4 [facility] Comment on above: Performed By: #### Rosa Wells, CH8 ####S PATHOLOGY [id number] [place], Chloride [Moles/Vol] 101 mmol/L Normal 97-111 [facility] Comment on above: Performed By: #### Rosa Wells, CH8 ####S PATHOLOGY [id number] [place], CO2 [Moles/Vol] 30 mmol/L Normal 21-[address] [facility] Comment on above: Performed By: #### Rosa Wells, CH8 ####S PATHOLOGY [id number] [place], Creatinine [Mass/Vol] 0.62 mg/dL Low 0.80-1.30 [facility] Comment on above: Performed By: #### Rosa Wells, CH8 ####S PATHOLOGY [id number] [place], ESTIMATED GFR (CKD-EPI) 105 mL/min/1.73sqm Normal >=60 [facility] Comment on above: Performed By: #### Rosa Wells, CH8 ####S PATHOLOGY [id number] [place], Glucose [Mass/Vol] 91 mg/dL Normal 80-116 [facility] Comment on above: Performed By: #### Rosa Wells, CH8 ####S PATHOLOGY [id number] [place], Potassium [Moles/Vol] 4.3 mmol/L Normal 3.3-5.3 [facility] Comment on above: Performed By: #### Rosa Wells, CH8 ####S PATHOLOGY [id number] [place], Sodium [Moles/Vol] 137 mmol/L Normal 135-[address] [facility] Comment on above: Performed By: #### Rosa Wells, CH8 ####S PATHOLOGY [id number] [place], Urea nitrogen [Mass/Vol] 10 mg/dL Normal 8-[address] [facility] Comment on above: Performed By: #### Rosa Wells, CH8 ####[facility] PATHOLOGY [id number] [place], COMPLETE BLOOD COUNTon 12-22 Erythrocyte distribution width (RBC) [Ratio] 16.0 % High 11.5-14.5 [facility] Comment on above: Performed By: #### C BC ####[facility] PATHOLOGY [id number] [place], Hematocrit (Bld) [Volume fraction] 22.8 % Low 41.0-53.0 [facility] Comment on above: Performed By: #### C BC ####[facility] PATHOLOGY [id number] [place], Hemoglobin (Bld) [Mass/Vol] 7.4 g/dL Low 13.9-16.3 [facility] Comment on above: Performed By: #### C BC ####[facility] PATHOLOGY [id number] [place], MCH (RBC) [Entitic mass] 29.1 pg Normal 26.0-34.0 [facility] Comment on above: Performed By: #### C BC ####[facility] PATHOLOGY [id number] [place], MCHC (RBC) [Mass/Vol] 32.7 g/dL Normal 32.0-35.9 [facility] Comment on above: Performed By: #### C BC ####[facility] PATHOLOGY [id number] [place], MCV (RBC) [Entitic vol] 89 fL Normal 80-[address] [facility] Comment on above: Performed By: #### C BC ####[facility] PATHOLOGY [id number] [place], Platelet mean volume (Bld) [Entitic vol] 6.5 fL Low 7.5-11.2 [facility] Comment on above: Performed By: #### C BC ####[facility] PATHOLOGY [id number] [place], Platelets (Bld) [#/Vol] 306 10*3/uL Normal 150-400 [facility] Comment on above: Performed By: #### C BC ####S PATHOLOGY [id number] [place], RBC (Bld) [#/Vol] 2.56 10*6/uL Low 4.50-5.90 [facility] Comment on above: Performed By: #### C BC ####S PATHOLOGY [id number] [place], WBC (Bld) [#/Vol] 10.0 10*3/uL Normal 4.5-11.5 [facility] Comment on above: Performed By: #### C BC ####S PATHOLOGY [id number] [place], Care Plan Noteon 12-22-2020 Electrical Maintenance Engineer Authentication Interface Message Text Normal [facility] Consultson 12-22-2020 Electrical Maintenance Engineer Authentication Interface Message Text Normal [facility] Electrical Maintenance Engineer Authentication Interface Message Text Normal [facility] Electrical Maintenance Engineer Authentication Interface Message Text Normal [facility] GLUCOSE, FINGERSTICK-IN OFFI CEon 12-22-2020 Glucose [Mass/Vol] 110 mg/dL Normal 80-116 [facility] Comment on above: Performed By: #### 8 2948 ####NURSING GLUCOSE [id number] [place], [address] Glucose [Mass/Vol] 243 mg/dL High 80-116 [facility] Comment on above: Performed By: #### 8 2948 ####NURSING GLUCOSE [id number] [place], [address] Glucose [Mass/Vol] 120 mg/dL High 80-116 [facility] Comment on above: Performed By: #### 8 2948 ####NURSING GLUCOSE [id number] [place], [address] Glucose [Mass/Vol] 102 mg/dL Normal 80-116 [facility] Comment on above: Performed By: #### 8 2948 ####NURSING GLUCOSE [id number] [place], [address] MAGNESIUMon 12-22-2020 Magnesium [Mass/Vol] 1.8 mg/dL Normal 1.6-2.8 [facility] Comment on above: Performed By: #### M JASON Wells8 ####S PATHOLOGY [id number] [place], Progress Noteson 12-22-2020 Electrical Maintenance Engineer Authentication Interface Message Text Normal [facility] Electrical Maintenance Engineer Authentication Interface Message Text Normal [facility] Electrical Maintenance Engineer Authentication Interface Message Text Normal [facility] XR CHEST AP OR PA 1 VIEWon 0 12-22-2020 XR CHEST AP OR PA 1 VIEW Normal [facility] XR CHEST AP OR PA 1 VIEW Normal [facility] BASIC METABOLIC PANELon 07 Anion gap [Moles/Vol] 12 mmol/L Normal 5-[address] [facility] Comment on above: Performed By: #### Sofia H8, MG ####S PATHOLOGY [id number] [place], Calcium [Mass/Vol] 7.4 mg/dL Low 8.4-10.[address] [facility] Comment on above: Performed By: #### Sofia H8, MG ####S PATHOLOGY [id number] [place], Chloride [Moles/Vol] 99 mmol/L Normal 97-111 [facility] Comment on above: Performed By: #### Sofia H8, MG ####S PATHOLOGY [id number] [place], CO2 [Moles/Vol] 27 mmol/L Normal 21-30 [facility] Comment on above: Performed By: #### Sofia H8, MG ####S PATHOLOGY [id number] [place], Creatinine [Mass/Vol] 0.63 mg/dL Low 0.80-1.30 [facility] Comment on above: Performed By: #### Sofia H8, MG ####[facility] PATH[facility] [id number] [place], ESTIMATED GFR (CKD-EPI) 104 mL/min/1.73sqm Normal >=60 [facility] Comment on above: Performed By: #### Sofia H8, MG ####S PATHOLOGY [id number] [place], Glucose [Mass/Vol] 228 mg/dL High 80-116 [facility] Comment on above: Performed By: #### C H8, MG ####S PATHOLOGY [id number] [place], Potassium [Moles/Vol] 4.9 mmol/L Normal 3.3-5.3 [facility] Comment on above: Performed By: #### C H8, MG ####[facility] PATHOLOGY [id number] [place], Sodium [Moles/Vol] 133 mmol/L Low 135-148 [facility] Comment on above: Performed By: #### C H8, MG ####[facility] PATHOLOGY [id number] [place], Urea nitrogen [Mass/Vol] 8 mg/dL Normal 8-22 [facility] Comment on above: Performed By: #### C H8, MG ####[facility] PATHOLOGY [id number] [place], COMPLETE BLOOD COUNT 12-21 Erythrocyte distribution width (RBC) [Ratio] 15.8 % High 11.5-14.5 [facility] Comment on above: Performed By: #### C BC ####[facility] PATHOLOGY [id number] [place] [address], Hematocrit (Bld) [Volume fraction] 24.6 % Low 41.0-53.0 [facility] Comment on above: Performed By: #### C BC ####[facility] PATHOLOGY [id number] [place] [address], Hemoglobin (Bld) [Mass/Vol] 8.3 g/dL Low 13.9-16.3 [facility] Comment on above: Performed By: #### C BC ####S PATHOLOGY [id number] [place] [address], MCH (RBC) [Entitic mass] 30.6 pg Normal 26.0-34.0 [facility] Comment on above: Performed By: #### C BC ####S PATHOLOGY [id number] [place] [address], MCHC (RBC) [Mass/Vol] 33.6 g/dL Normal 32.0-35.9 [facility] Comment on above: Performed By: #### C BC ####S PATHOLOGY [id number] [place], MCV (RBC) [Entitic vol] 91 fL Normal 80-100 [facility] Comment on above: Performed By: #### C BC ####S PATHOLOGY [id number] [place], Platelet mean volume (Bld) [Entitic vol] 6.6 fL Low 7.5-11.2 [facility] Comment on above: Performed By: #### C BC ####S PATHOLOGY [id number] [place], Platelets (Bld) [#/Vol] 361 10*3/uL Normal 150-400 [facility] Comment on above: Performed By: #### C BC ####[facility] PATHOLOGY [id number] [place] [address], RBC (Bld) [#/Vol] 2.70 10*6/uL Low 4.50-5.90 [facility] Comment on above: Performed By: #### C BC ####[facility] PATHOLOGY [id number] [place], WBC (Bld) [#/Vol] 10.1 10*3/uL Normal 4.5-11.5 [facility] Comment on above: Performed By: #### C BC ####[facility] PATHOLOGY [id number] [place], Consultson 12-21-2020 Electrical Maintenance Engineer Authentication Interface Message Text Normal [facility] Electrical Maintenance Engineer Authentication Interface Message Text Normal [facility] Electrical Maintenance Engineer Authentication Interface Message Text Normal [facility] GLUCOSE, FINGERSTICK-IN OFFI CEon 12-21-2020 Glucose [Mass/Vol] 165 mg/dL High 80-116 [facility] Comment on above: Performed By: #### 8 2948 ####NURSING GLUCOSE [id number] [place], Glucose [Mass/Vol] 270 mg/dL High 80-116 [facility] Comment on above: Performed By: #### 8 2948 ####NURSING GLUCOSE [id number] [place], [address] Glucose [Mass/Vol] 158 mg/dL High 80-116 [facility] Comment on above: Performed By: #### 8 2948 ####NURSING GLUCOSE [id number] [place], [address] Glucose [Mass/Vol] 175 mg/dL High 80-116 [facility] Comment on above: Performed By: #### 8 2948 ####NURSING GLUCOSE [id number] [place], [address] Glucose [Mass/Vol] 283 mg/dL High 80-116 [facility] Comment on above: Result Comment: Javier CURTISN Performed By: #### 8 2948 ####NURSING GLUCOSE [id number] [place], [address] HOSPon 12-21-2020 HOSP Patient:Uma Barker N MRN: No data within the last 30 days. Normal [facility] MAGNESIUMon 12-21-2020 Magnesium [Mass/Vol] 1.6 mg/dL Normal 1.6-2.8 [facility] Comment on above: Performed By: #### C H8, MG ####[facility] PATH[facility] [id number] [place], Progress Noteson 12-21-2020 Electrical Maintenance Engineer Authentication Interface Message Text Normal The [facility] Electrical Maintenance Engineer Authentication Interface Message Text Normal [facility] XR CHEST AP OR PA 1 VIEWon 0 12-21-2020 XR CHEST AP OR PA 1 VIEW Normal The [facility] AFB CULTURE/SMEARon 12-21-19 21 AFB CULTURE/SMEAR C AFB: No Growth AFB STAIN: No Acid Fast Bacilli Seen Normal [facility] Comment on above: Performed By: #### C AFB ####[facility] Sdmvgunoj6086 [place], [place] ANAEROBIC CULTURE, MISCon ANAEROBIC CULTURE, MISC C ANRBC: No Anaerobes isolated Normal [facility] Comment on above: Performed By: #### C ANRBC ####[facility] Fwicqmpzm3350 [place], [place] ANAEROBIC CULTURE, MISC C ANRBC: No Anaerobes isolated Normal [facility] Comment on above: Performed By: #### C ANRBC ####[facility] Yovrniefk9344 [place], [place] Anesthesia Attestationon Electrical Maintenance Engineer Authentication Interface Message Text Normal [facility] Anesthesia Postprocedure Lizbeth luationon 12-20-2020 Electrical Maintenance Engineer Authentication Interface Message Text Normal [facility] Anesthesia Preprocedure Eval uationon 12-20-2020 Electrical Maintenance Engineer Authentication Interface Message Text Normal [facility] Anesthesia Transfer Of Careo n 12-20-2020 Electrical Maintenance Engineer Authentication Interface Message Text Normal [facility] BASIC METABOLIC PANELon 11-23 Anion gap [Moles/Vol] 12 mmol/L Normal 5-13 [facility] Comment on above: Performed By: #### Sofia Apodaca8, MG ####S PATHOLOGY [id number] [place] [address], Calcium [Mass/Vol] 7.4 mg/dL Low 8.4-10.4 [facility] Comment on above: Performed By: #### Sofia Apodaca8, MG ####[facility] PATH[facility] [id number] [place], Chloride [Moles/Vol] 100 mmol/L Normal 97-111 [facility] Comment on above: Performed By: #### Sofia H8, MG ####[facility] PATH[facility] [id number] [place], CO2 [Moles/Vol] 29 mmol/L Normal 21-30 [facility] Comment on above: Performed By: #### Sofia H8, MG ####[facility] PATH[facility]Y [id number] [place], Creatinine [Mass/Vol] 0.70 mg/dL Low 0.80-1.30 [facility] Comment on above: Performed By: #### Sofia H8, MG ####[facility] PATHOLOGY [id number] [place], [place], ESTIMATED GFR (CKD-EPI) 100 mL/min/1.73sqm Normal >=60 [facility] Comment on above: Performed By: #### Sofia Shah, MG ####[facility] PATHOLOGY [id number] [place], [place], Glucose [Mass/Vol] 192 mg/dL High 80-116 [facility] Comment on above: Performed By: #### Sofia Shah, MG ####[facility] PATHOLOGY NBUGOPOAPI[address] [place] [address], Potassium [Moles/Vol] 4.5 mmol/L Normal 3.3-5.3 [facility] Comment on above: Performed By: #### Sofia Shah, MG ####[facility] PATHOLOGY [id number] [place] [address], Sodium [Moles/Vol] 136 mmol/L Normal 135-148 [facility] Comment on above: Performed By: #### Sofia Shah, MG ####[facility] PATHOLOGY [id number] [place] [address], Urea nitrogen [Mass/Vol] 8 mg/dL Normal 8-22 [facility] Comment on above: Performed By: #### Sofia Shah, MG ####[facility] PATHOLOGY [id number] [place] [address], BLOOD GAS, ARTERIALon 2020 CR % O2 SAT > 99.4 Normal >=95.[address] [facility] Comment on above: Performed By: #### Sofia MADRIDTES, CR GLU, CR BGA, LACT, CR ICA, CR COOX ####[facility] PATHOLOGY [id number] [place], [place], CR LESA 3.3 mmol/L High -2.0-2.0 [facility] Comment on above: Performed By: #### Sofia Quinn LYTES, CR GLU, CR BGA, LACT, CR ICA, CR COOX ####[facility] PATHOLOGY [id number] [place], CR PCO2 44.3 mm Hg Normal 35.0-45.0 [facility] Comment on above: Performed By: #### C R LYTES, CR GLU, CR BGA, LACT, CR ICA, CR COOX ####[facility] PATHOLOGY EOKZKKAQER[address] [place] [address], CR PHA 7.412 Normal 7.35-7.45 [facility] Comment on above: Performed By: #### C R LYTES, CR GLU, CR BGA, LACT, CR ICA, CR COOX ####[facility] PATHOLOGY RGZYQDHHNC[address] [place] [address], CR PO2 298 mm Hg High 80-100 mm Hg [facility] Comment on above: Performed By: #### C R LYTES, CR GLU, CR BGA, LACT, CR ICA, CR COOX ####[facility] PATHOLOGY XGUBSUARNS[address] [place] [address], HCO3 (Bld) [Moles/Vol] 28 mmol/L Normal 22-28 [facility] Comment on above: Performed By: #### C R LYTES, CR GLU, CR BGA, LACT, CR ICA, CR COOX ####[facility] PATHOLOGY [id number] [place] [address], Blood Attestationon 12-21-19 Electrical Maintenance Engineer Authentication Interface Message Text Normal [facility] Brief Operative Noteon 12-20 Electrical Maintenance Engineer Authentication Interface Message Text Normal [facility] CALCIUM, IONIZEDon CR ICA 1.11 mmol/L Normal 1.10-1.40 [facility] Comment on above: Performed By: #### C R LYTES, CR GLU, CR BGA, LACT, CR ICA, CR COOX ####[facility] PATHOLOGY DZVAZWSJNO[address] [place] [address], CO-OXIMETERon 12-20-2020 CARBOXYHEMOGLOBIN 2.1 % Normal <3.0 [facility] Comment on above: Performed By: #### C R LYTES, CR GLU, CR BGA, LACT, CR ICA, CR COOX ####[facility] PATHOLOGY [id number] [place] [address], CR HBMET 0.9 % Normal <3.0 [facility] Comment on above: Performed By: #### C R LYTES, CR GLU, CR BGA, LACT, CR ICA, CR COOX ####[facility] PATHOLOGY [id number] [place], Hematocrit (Bld) [Volume fraction] 25.5 % Low 42.0-52.0 [facility] Comment on above: Performed By: #### C R LYTES, CR GLU, CR BGA, LACT, CR ICA, CR COOX ####[facility] PATHOLOGY NRLPYJECEJ9189[address] [place] [address], Hemoglobin (Bld) [Mass/Vol] 8.2 g/dL Low 14.0-18.[address] Comment on above: Performed By: #### C R LYTES, CR GLU, CR BGA, LACT, CR ICA, CR COOX ####[facility] PATHOLOGY OFCMGUAJYS[address] [place] [address], OXYHEMOGLOBIN 97.3 % Normal 95.0-100.0 [facility] Comment on above: Performed By: #### C R LYTES, CR GLU, CR BGA, LACT, CR ICA, CR COOX ####[facility] PATHOLOGY [id number] [place] [address], COMPLETE BLOOD COUNTon 12-20 Erythrocyte distribution width (RBC) [Ratio] 15.4 % High 11.5-14.5 [facility] Comment on above: Performed By: #### C BC ####[facility] PATHOLOGY WIJJTTLNYO[address] [place] [address], Hematocrit (Bld) [Volume fraction] 26.1 % Low 41.0-53.0 [facility] Comment on above: Performed By: #### C BC ####[facility] PATHOLOGY ASKUHFECSF[address] [place] [address], Hemoglobin (Bld) [Mass/Vol] 8.5 g/dL Low 13.9-16.3 [facility] Comment on above: Performed By: #### C BC ####[facility] PATHOLOGY ANJRCCYTLV[address] [place] [address], MCH (RBC) [Entitic mass] 29.6 pg Normal 26.0-34.0 [facility] Comment on above: Performed By: #### C BC ####S PATHOLOGY [id number] [place], MCHC (RBC) [Mass/Vol] 32.6 g/dL Normal 32.0-35.9 [facility] Comment on above: Performed By: #### C BC ####S PATHOLOGY [id number] [place], MCV (RBC) [Entitic vol] 91 fL Normal 80-[address] [facility] Comment on above: Performed By: #### C BC ####S PATHOLOGY [id number] [place], Platelet mean volume (Bld) [Entitic vol] 6.8 fL Low 7.5-11.2 [facility] Comment on above: Performed By: #### C BC ####[facility] PATHOLOGY [id number] [place], Platelets (Bld) [#/Vol] 405 10*3/uL High 150-400 [facility] Comment on above: Performed By: #### C BC ####[facility] PATHOLOGY [id number] [place], RBC (Bld) [#/Vol] 2.88 10*6/uL Low 4.50-5.90 [facility] Comment on above: Performed By: #### C BC ####S PATHOLOGY [id number] [place], WBC (Bld) [#/Vol] 6.2 10*3/uL Normal 4.5-11.5 [facility] Comment on above: Performed By: #### C BC ####S PATHOLOGY [id number] [place], Care Plan Noteon 12-20-2020 Electrical Maintenance Engineer Authentication Interface Message Text Normal [facility] Consultson 12-20-2020 Electrical Maintenance Engineer Authentication Interface Message Text Physical Therapy: Pt in OR for VATS. Will continue to follow per POC. Maria Luisa MONTERO Beeper #[phone] Normal [facility] ELECTROLYTESon 12-20-2020 Chloride [Moles/Vol] 104 mmol/L Normal 97-111 [facility] Comment on above: Performed By: #### C R LYTES, CR GLU, CR BGA, LACT, CR ICA, CR COOX ####[facility] PATHOLOGY [id number] [place], Potassium [Moles/Vol] 4.1 mmol/L Normal 3.3-5.3 [facility] Comment on above: Performed By: #### C R LYTES, CR GLU, CR BGA, LACT, CR ICA, CR COOX ####[facility] PATHOLOGY [id number] [place], Sodium [Moles/Vol] 136 mmol/L Normal 135-148 [facility] Comment on above: Performed By: #### C R LYTES, CR GLU, CR BGA, LACT, CR ICA, CR COOX ####[facility] PATHOLOGY [id number] [place], GLUCOSE, FINGERSTICK-IN OFFI CEon 12-20-2020 Glucose [Mass/Vol] 146 mg/dL High 80-116 [facility] Comment on above: Performed By: #### 8 2948 ####NURSING GLUCOSE [id number] [place], [address] Glucose [Mass/Vol] 147 mg/dL High 80-116 [facility] Comment on above: Performed By: #### 8 2948 ####NURSING GLUCOSE [id number] [place], [address] GLUCOSE, WHOLE BLOODon 12-20 CR GLU 132 mg/dL High 68-98 [facility] Comment on above: Performed By: #### C R LYTES, CR GLU, CR BGA, LACT, CR ICA, CR COOX ####[facility] PATHOLOGY [id number] [place], H AND Glenn 12-20-2020 Electrical Maintenance Engineer Authentication Interface Message Text Normal [facility] LACTIC ACIDon 12-20-2020 CR LACT 1.2 mmol/L Normal 0.5-2.0 [facility] Comment on above: Performed By: #### C R LYTES, CR GLU, CR BGA, LACT, CR ICA, CR COOX ####[facility] [id number] [place], MAGNESIUMon 12-20-2020 Magnesium [Mass/Vol] 1.9 mg/dL Normal 1.6-2.8 [facility] Comment on above: Performed By: #### C H8, MG ####[facility] PATHOLOGY [id number] [place], [place], [place] Surgeonon 12-20-2020 Electrical Maintenance Engineer Authentication Interface Message Text Normal The [facility] Progress Noteson 12-20-2020 Electrical Maintenance Engineer Authentication Interface Message Text 1529: Assessment completed with assistance of court interpreter [id number]. 1620: Pt to go to the regular nursing floor per Dr. Pacheco. Normal [facility] Electrical Maintenance Engineer Authentication Interface Message Text Normal [facility] RED BLOOD CELL COMPONENTon 0 12-20-2020 BB ORDER ITEM Product status info to follow Normal [facility] Comment on above: Performed By: #### R EVELYN ####[facility]Y [id number] [place], RED BLOOD CELL UNIT STATUSon 12-20-2020 BLOOD PRODUCT CODE [id number] Normal [facility] Comment on above: Performed By: #### R BU ####[facility]Y [id number] [place], BLOOD PRODUCT CODE [id number] Normal [facility] Comment on above: Performed By: #### R BU ####[facility]Y [id number] [place], BLOOD PRODUCT DESCRIPTION Red Blood Cells Normal [facility] Comment on above: Performed By: #### R BU ####[facility] PATH[facility]Y [id number] [place], BLOOD PRODUCT STATUS Released to avail Normal [facility] Comment on above: Performed By: #### R BU ####[facility]Y [id number] [place], BLOOD PRODUCT UNIT INFO [id number] Normal [facility] Comment on above: Performed By: #### R BU ####[facility]Y [id number] [place], BLOOD PRODUCT UNIT INFO [id number] Normal [facility] Comment on above: Performed By: #### R BU ####[facility] PATH[facility]Y [id number] [place], BLOOD PRODUCT UNIT INFO [id number] Normal [facility] Comment on above: Performed By: #### R BU ####S PATHOLOGY [id number] [place], BLOOD PRODUCT UNIT INFO [id number] Normal [facility] Comment on above: Performed By: #### R BU ####S PATHOLOGY [id number] [place], BLOOD PRODUCT UNIT TYPE 5100 Normal [facility] Comment on above: Result Comment: O Po s Performed By: #### R BU ####S PATHOLOGY [id number] [place], CROSSMATCH INTERPRETATION Compatible (E) Normal [facility] Comment on above: Performed By: #### R BU ####S PATHOLOGY [id number] [place], TISSUE CULTURE, AEROBICon TISSUE CULTURE, AEROBIC C TISS: No Growth GRAM STAIN: 4+ Polymorphonuclear Leukocytes No Squamous Epithelial Cells seen No organisms seen Normal [facility] Comment on above: Performed By: #### C TISS ####[facility] Kuyxzvfwl6434 [place], [place] TISSUE CULTURE, AEROBIC C TISS: No Growth GRAM STAIN: 2+ Polymorphonuclear Leukocytes No Squamous Epithelial Cells seen No organisms seen Normal [facility] Comment on above: Performed By: #### C TISS ####[facility] [address] [place], [place] [address] XR CHEST AP OR PA 1 VIEWon 0 12-20-2020 XR CHEST AP OR PA 1 VIEW Normal [facility] Anesthesia Preprocedure Eval uationon 12-19-2020 Electrical Maintenance Engineer Authentication Interface Message Text Normal [facility] BASIC METABOLIC PANELon 06-2 Anion gap [Moles/Vol] 13 mmol/L Normal 5-13 [facility] Comment on above: Performed By: #### Rosa Wells, CH8 ####S PATHOLOGY [id number] [place], Calcium [Mass/Vol] 7.4 mg/dL Low 8.4-10.4 [facility] Comment on above: Performed By: #### Rosa Wells, CH8 ####S PATHOLOGY [id number] [place], Chloride [Moles/Vol] 99 mmol/L Normal 97-111 [facility] Comment on above: Performed By: #### Rosa Wells, CH8 ####S PATHOLOGY [id number] [place], CO2 [Moles/Vol] 29 mmol/L Normal 21-30 [facility] Comment on above: Performed By: #### Rosa Wells, CH8 ####S PATHOLOGY ALAQRJDOOT8454 [place], Creatinine [Mass/Vol] 0.77 mg/dL Low 0.80-1.30 [facility] Comment on above: Performed By: #### Rosa Wells, CH8 ####S PATHOLOGY [id number] [place], ESTIMATED GFR (CKD-EPI) 96 mL/min/1.73sqm Normal >=60 [facility] Comment on above: Performed By: #### Rosa Wells, CH8 ####S PATHOLOGY [id number] [place], Glucose [Mass/Vol] 105 mg/dL Normal 80-116 [facility] Comment on above: Performed By: #### Rosa Wells, CH8 ####S PATHOLOGY LAKMRLDLET4943 [place], Potassium [Moles/Vol] 4.1 mmol/L Normal 3.3-5.3 [facility] Comment on above: Performed By: #### Rosa Wells, CH8 ####S PATHOLOGY SRZYZBYJIW7336 [place], Sodium [Moles/Vol] 137 mmol/L Normal 135-148 [facility] Comment on above: Performed By: #### M Russell CH8 ####[facility] PATHOLOGY [id number] [place], Urea nitrogen [Mass/Vol] 9 mg/dL Normal 8-22 [facility] Comment on above: Performed By: #### M JASON Wells8 ####[facility] PATHOLOGY [id number] [place], COMPLETE BLOOD COUNTon 12-19 Erythrocyte distribution width (RBC) [Ratio] 15.4 % High 11.5-14.5 [facility] Comment on above: Performed By: #### C BC ####[facility] PATHOLOGY [id number] [place], Hematocrit (Bld) [Volume fraction] 25.3 % Low 41.0-53.0 [facility] Comment on above: Performed By: #### C BC ####[facility] PATHOLOGY NBFKVNMUFS8135 [place], Hemoglobin (Bld) [Mass/Vol] 8.3 g/dL Low 13.9-16.3 [facility] Comment on above: Performed By: #### C BC ####[facility] PATHOLOGY [id number] [place], MCH (RBC) [Entitic mass] 29.2 pg Normal 26.0-34.0 [facility] Comment on above: Performed By: #### C BC ####[facility] PATHOLOGY [id number] [place], MCHC (RBC) [Mass/Vol] 32.8 g/dL Normal 32.0-35.9 [facility] Comment on above: Performed By: #### C BC ####[facility] PATHOLOGY [id number] [place], MCV (RBC) [Entitic vol] 89 fL Normal 80-100 [facility] Comment on above: Performed By: #### C BC ####S PATHOLOGY SFYSOLVSMO5260 [place], Platelet mean volume (Bld) [Entitic vol] 6.5 fL Low 7.5-11.2 [facility] Comment on above: Performed By: #### C BC ####S PATHOLOGY [id number] [place], Platelets (Bld) [#/Vol] 389 10*3/uL Normal 150-400 [facility] Comment on above: Performed By: #### C BC ####[facility] PATHOLOGY [id number] [place], RBC (Bld) [#/Vol] 2.84 10*6/uL Low 4.50-5.90 [facility] Comment on above: Performed By: #### C BC ####[facility] PATHOLOGY [id number] [place], WBC (Bld) [#/Vol] 5.5 10*3/uL Normal 4.5-11.5 [facility] Comment on above: Performed By: #### C BC ####[facility] PATHOLOGY [id number] [place], Care Plan Noteon 12-19-2020 Electrical Maintenance Engineer Authentication Interface Message Text Normal [facility] Consultson 12-19-2020 Electrical Maintenance Engineer Authentication Interface Message Text Normal [facility] GLUCOSE, FINGERSTICK-IN OFFI CEon 12-19-2020 Glucose [Mass/Vol] 212 mg/dL High 80-116 [facility] Comment on above: Result Comment: Javier childress RN, APN, MD Performed By: #### 8 8850 ####NURSING GLUCOSE [id number] [place], [address] Glucose [Mass/Vol] 165 mg/dL High 80-116 [facility] Comment on above: Result Comment: Javier childress RN, APN, MD Performed By: #### 8 3854 ####NURSING GLUCOSE DZAWXMZ3482 [place], [address] Glucose [Mass/Vol] 110 mg/dL Normal 80-116 [facility] Comment on above: Performed By: #### 8 9067 ####NURSING GLUCOSE CGKTISJ0360 [place], [address] Glucose [Mass/Vol] 109 mg/dL Normal 80-116 [facility] Comment on above: Performed By: #### 8 2948 ####NURSING GLUCOSE LHDDRJY1931 [place], MAGNESIUMon 12-19-2020 Magnesium [Mass/Vol] 2.0 mg/dL Normal 1.6-2.8 [facility] Comment on above: Performed By: #### Rosa Wells CH8 ####[facility] PATHOLOGY OBSPMYOIIL6563 [place], Progress Noteson 12-19-2020 Electrical Maintenance Engineer Authentication Interface Message Text Trauma Team, please notify SW when pt is nearing [place]. Pt will require a precert. [facility] is following and provided an update. Isabel Morrison, [facility], [facility] [phone] Normal [facility] Electrical Maintenance Engineer Authentication Interface Message Text Normal [facility] Electrical Maintenance Engineer Authentication Interface Message Text Normal [facility] TYPE AND SCREENon 12-19-2020 ABO and Rh group Nom (Bld) Blood group O Rh(D) positive Normal [facility] Comment on above: Performed By: #### T S ####[facility] PATHOLOGY [id number] [place], ABSC INT Negative Normal [facility] Comment on above: Performed By: #### T S ####[facility] PATHOLOGY KSYFJRNYPN4755 [place], BASIC METABOLIC PANELon 06- Anion gap [Moles/Vol] 13 mmol/L Normal 5-[address] [facility] Comment on above: Performed By: #### Rosa Wells CH8 ####S PATHOLOGY [id number] [place], Calcium [Mass/Vol] 7.2 mg/dL Low 8.4-10.4 [facility] Comment on above: Performed By: #### Rosa Wells CH8 ####S PATHOLOGY DTVIWKBNCZ4175 [place], Chloride [Moles/Vol] 99 mmol/L Normal 97-111 [facility] Comment on above: Performed By: #### Rosa Wells CH8 ####S PATHOLOGY SMOPYNBNJA66[address] [place] [address], CO2 [Moles/Vol] 27 mmol/L Normal 21-30 [facility] Comment on above: Performed By: #### Rosa Wells, JASON8 ####[facility] PATHOLOGY WEXJLKOXWT28[address] [place] [address], Creatinine [Mass/Vol] 0.78 mg/dL Low 0.80-1.30 [facility] Comment on above: Performed By: #### Rosa Wells, JASON8 ####[facility] PATHOLOGY VHEHWQUBRA[address] [place] [address], ESTIMATED GFR (CKD-EPI) 95 mL/min/1.73sqm Normal >=60 [facility] Comment on above: Performed By: #### Rosa Wells, JASON8 ####[facility] PATHOLOGY ILMQWOQKXK87[address] [place] [address], Glucose [Mass/Vol] 120 mg/dL High 80-116 [facility] Comment on above: Performed By: #### Rosa Wells CH8 ####[facility] PATHOLOGY SVNAMYNHYN[address] [place] [address], Potassium [Moles/Vol] 4.1 mmol/L Normal 3.3-5.3 [facility] Comment on above: Performed By: #### Rosa Wells, JASON8 ####[facility] PATHOLOGY SWWYSBXMGD[address] [place] [address], Sodium [Moles/Vol] 135 mmol/L Normal 135-148 [facility] Comment on above: Performed By: #### Rosa Wells CH8 ####[facility] PATHOLOGY ZFINXYJYDO89[address] [place] [address], Urea nitrogen [Mass/Vol] 8 mg/dL Normal 8-22 [facility] Comment on above: Performed By: #### Rosa Wells CH8 ####S PATHOLOGY RROFSAUHQW6134[address] [place] [address], COMPLETE BLOOD COUNTon 12-18 Erythrocyte distribution width (RBC) [Ratio] 15.2 % High 11.5-14.[address] [facility] Comment on above: Performed By: #### Sofia BC ####[facility] PATHOLOGY [id number] [place], Hematocrit (Bld) [Volume fraction] 23.8 % Low 41.0-53.[address] [facility] Comment on above: Performed By: #### C BC ####[facility] PATHOLOGY [id number] [place], Hemoglobin (Bld) [Mass/Vol] 8.0 g/dL Low 13.9-16.3 [facility] Comment on above: Performed By: #### C BC ####[facility] PATHOLOGY IGRPYGDXJQ6956 [place], MCH (RBC) [Entitic mass] 29.9 pg Normal 26.0-34.[address] [facility] Comment on above: Performed By: #### C BC ####[facility] PATHOLOGY OWHIMRKHFJ[address] [place] [address], MCHC (RBC) [Mass/Vol] 33.7 g/dL Normal 32.0-35.9 [facility] Comment on above: Performed By: #### C BC ####[facility] PATHOLOGY ATWCQVDNBQ[address] [place] [address], MCV (RBC) [Entitic vol] 89 fL Normal 80-100 [facility] Comment on above: Performed By: #### C BC ####[facility] PATHOLOGY [id number] [place], Platelet mean volume (Bld) [Entitic vol] 6.3 fL Low 7.5-11.2 [facility] Comment on above: Performed By: #### C BC ####[facility] PATHOLOGY [id number] [place], Platelets (Bld) [#/Vol] 374 10*3/uL Normal 150-400 [facility] Comment on above: Performed By: #### C BC ####[facility] PATHOLOGY [id number] [place], [place], RBC (Bld) [#/Vol] 2.68 10*6/uL Low 4.50-5.[address] [facility] [facility] Comment on above: Performed By: #### C BC ####[facility] PATHOLOGY [id number] [place], [place], WBC (Bld) [#/Vol] 8.4 10*3/uL Normal 4.5-11.5 [facility] Comment on above: Performed By: #### C BC ####[facility] [id number] [place], [place], CT CHEST W/O CONTRASTon 11-22 CT CHEST W/O CONTRAST 12.34 (mGy) IEC Body Dosimetry Phantom 423.87 (mGycm) [employer] 610 Chest,Chest,Chest I1 Normal [facility] Care Plan Noteon 12-18-2020 Electrical Maintenance Engineer Authentication Interface Message Text Normal [facility] Consultson 12-18-2020 Electrical Maintenance Engineer Authentication Interface Message Text Normal [facility] GLUCOSE, FINGERSTICK-IN OFFI CEon 12-18-2020 Glucose [Mass/Vol] 211 mg/dL High 80-116 [facility] Comment on above: Performed By: #### 8 2948 ####NURSING GLUCOSE [id number] [place], [address] Glucose [Mass/Vol] 252 mg/dL High 80-116 [facility] Comment on above: Performed By: #### 8 2948 ####NURSING GLUCOSE [id number] [place], [address] Glucose [Mass/Vol] 220 mg/dL High 80-116 [facility] Comment on above: Performed By: #### 8 2948 ####NURSING GLUCOSE [id number] [place], [address] Glucose [Mass/Vol] 79 mg/dL Low 80-116 [facility] Comment on above: Performed By: #### 8 2948 ####NURSING GLUCOSE [id number] [place], [address] MAGNESIUMon 12-18-2020 Magnesium [Mass/Vol] 1.8 mg/dL Normal 1.6-2.8 [facility] Comment on above: Performed By: #### M Russell CH8 ####[facility] [id number] [place], [place], Progress Noteson 12-18-2020 Electrical Maintenance Engineer Authentication Interface Message Text Normal [facility] Electrical Maintenance Engineer Authentication Interface Message Text Normal [facility] Electrical Maintenance Engineer Authentication Interface Message Text Normal [facility] XR CHEST AP OR PA 1 VIEWon 0 12-18-2020 XR CHEST AP OR PA 1 VIEW Normal [facility] BASIC METABOLIC PANELon 06-2 Anion gap [Moles/Vol] 14 mmol/L High 5-13 [facility] Comment on above: Performed By: #### Sofia Shah, MG ####[facility] [id number] [place], Calcium [Mass/Vol] 7.3 mg/dL Low 8.4-10.[address] Comment on above: Performed By: #### Sofia Shah, MG ####[facility] [id number] [place], Chloride [Moles/Vol] 98 mmol/L Normal 97-[address] [facility] Comment on above: Performed By: #### Sofia Shah, MG ####[facility] PATHOLOGY [id number] [place], CO2 [Moles/Vol] 26 mmol/L Normal 21-[address] [facility] Comment on above: Performed By: #### Sofia Shah, MG ####[facility] [id number] [place], Creatinine [Mass/Vol] 0.80 mg/dL Normal 0.80-1.30 [facility] Comment on above: Performed By: #### Sofia Shah, MG ####[facility] [id number] [place], ESTIMATED GFR (CKD-EPI) 94 mL/min/1.73sqm Normal >=60 [facility] Comment on above: Performed By: #### Sofia Shah, MG ####[facility] [id number] [place], Glucose [Mass/Vol] 160 mg/dL High 80-116 [facility] Comment on above: Performed By: #### Sofia HMarilee, MG ####[facility]Y [id number] [place], Potassium [Moles/Vol] 4.1 mmol/L Normal 3.3-5.3 [facility] Comment on above: Performed By: #### C H8, MG ####[facility] PATHOLOGY [id number] [place], Sodium [Moles/Vol] 134 mmol/L Low 135-148 [facility] Comment on above: Performed By: #### C H8, MG ####[facility] PATHOLOGY [id number] [place], Urea nitrogen [Mass/Vol] 10 mg/dL Normal 8-22 [facility] Comment on above: Performed By: #### C H8, MG ####[facility] PATHOLOGY [id number] [place] [address], COMPLETE BLOOD COUNTon 12-17 Erythrocyte distribution width (RBC) [Ratio] 15.4 % High 11.5-14.5 [facility] Comment on above: Performed By: #### C BC ####[facility] PATHOLOGY [id number] [place] [address], Hematocrit (Bld) [Volume fraction] 24.0 % Low 41.0-53.0 [facility] Comment on above: Performed By: #### C BC ####[facility] PATHOLOGY [id number] [place] [address], Hemoglobin (Bld) [Mass/Vol] 8.1 g/dL Low 13.9-16.3 [facility] Comment on above: Performed By: #### C BC ####[facility] PATHOLOGY [id number] [place], MCH (RBC) [Entitic mass] 31.0 pg Normal 26.0-34.0 [facility] Comment on above: Performed By: #### C BC ####[facility] PATHOLOGY [id number] [place] [address], MCHC (RBC) [Mass/Vol] 33.9 g/dL Normal 32.0-35.9 [facility] Comment on above: Performed By: #### C BC ####[facility] PATHOLOGY [id number] [place] [address], MCV (RBC) [Entitic vol] 92 fL Normal 80-100 [facility] Comment on above: Performed By: #### C BC ####[facility] PATHOLOGY [id number] [place], Platelet mean volume (Bld) [Entitic vol] 6.6 fL Low 7.5-11.2 [facility] Comment on above: Performed By: #### C BC ####[facility] PATHOLOGY [id number] [place], Platelets (Bld) [#/Vol] 420 10*3/uL High 150-400 [facility] Comment on above: Performed By: #### C BC ####[facility] PATHOLOGY [id number] [place] [address], RBC (Bld) [#/Vol] 2.62 10*6/uL Low 4.50-5.90 [facility] Comment on above: Performed By: #### C BC ####[facility] PATHOLOGY [id number] [place], WBC (Bld) [#/Vol] 8.3 10*3/uL Normal 4.5-11.5 [facility] Comment on above: Performed By: #### C BC ####[facility] PATHOLOGY [id number] [place], Care Plan Noteon 12-17-2020 Electrical Maintenance Engineer Authentication Interface Message Text Normal [facility] GLUCOSE, FINGERSTICK-IN OFFI CEon 12-17-2020 Glucose [Mass/Vol] 147 mg/dL High 80-116 [facility] Comment on above: Result Comment: Javier childress RN, APN, MD Performed By: #### 8 3286 ####NURSING GLUCOSE OSUDEIA7322 [place], [address] Glucose [Mass/Vol] 205 mg/dL High 80-116 [facility] Comment on above: Performed By: #### 8 1331 ####NURSING GLUCOSE [id number] [place], [address] Glucose [Mass/Vol] 263 mg/dL High 80-116 [facility] Comment on above: Performed By: #### 8 2948 ####NURSING GLUCOSE [id number] [place], [address] Glucose [Mass/Vol] 133 mg/dL High 80-116 [facility] Comment on above: Performed By: #### 8 2948 ####NURSING GLUCOSE [id number] [place], [address] MAGNESIUMon 12-17-2020 Magnesium [Mass/Vol] 1.7 mg/dL Normal 1.6-2.8 [facility] Comment on above: Performed By: #### C H8, MG ####[facility] PATH[facility] [id number] [place], Progress Noteson 12-17-2020 Electrical Maintenance Engineer Authentication Interface Message Text Normal [facility] Electrical Maintenance Engineer Authentication Interface Message Text Normal [facility] Electrical Maintenance Engineer Authentication Interface Message Text Normal [facility] XR CHEST AP OR PA 1 VIEWon 0 12-17-2020 XR CHEST AP OR PA 1 VIEW Normal [facility] BASIC METABOLIC PANELon 11-22 Anion gap [Moles/Vol] 14 mmol/L High 5-13 [facility] Comment on above: Performed By: #### Rosa Wells CH8 ####[facility] PATH[facility] [id number] [place], Calcium [Mass/Vol] 7.4 mg/dL Low 8.4-10.4 [facility] Comment on above: Performed By: #### Rosa Wells CH8 ####[facility] PATH[facility]Y [id number] [place], Chloride [Moles/Vol] 101 mmol/L Normal 97-111 [facility] Comment on above: Performed By: #### Rosa Wells, CH8 ####[facility] PATHOLOGY [id number] [place], CO2 [Moles/Vol] 25 mmol/L Normal 21-30 [facility] Comment on above: Performed By: #### Rosa Wells, CH8 ####[facility] PATHOLOGY [id number] [place], Creatinine [Mass/Vol] 0.74 mg/dL Low 0.80-1.30 [facility] Comment on above: Performed By: #### Rosa Wells, CH8 ####S PATHOLOGY [id number] [place], ESTIMATED GFR (CKD-EPI) 97 mL/min/1.73sqm Normal >=60 [facility] Comment on above: Performed By: #### Rosa Wells, CH8 ####S PATHOLOGY [id number] [place], Glucose [Mass/Vol] 138 mg/dL High 80-116 [facility] Comment on above: Performed By: #### Rosa Wells, CH8 ####S PATHOLOGY [id number] [place], Potassium [Moles/Vol] 4.5 mmol/L Normal 3.3-5.3 [facility] Comment on above: Performed By: #### Rosa Wells, CH8 ####S PATHOLOGY [id number] [place], Sodium [Moles/Vol] 135 mmol/L Normal 135-148 [facility] Comment on above: Performed By: #### Rosa Wells, CH8 ####S PATHOLOGY [id number] [place], Urea nitrogen [Mass/Vol] 10 mg/dL Normal 8-[address] [facility] Comment on above: Performed By: #### Rosa Wells, CH8 ####S PATHOLOGY [id number] [place], COMPLETE BLOOD COUNTon 12-16 Erythrocyte distribution width (RBC) [Ratio] 15.4 % High 11.5-14.[address] [facility] Comment on above: Performed By: #### C BC ####S PATHOLOGY [id number] [place], Hematocrit (Bld) [Volume fraction] 24.6 % Low 41.0-53.0 [facility] Comment on above: Performed By: #### C BC ####S PATHOLOGY [id number] [place], Hemoglobin (Bld) [Mass/Vol] 8.4 g/dL Low 13.9-16.3 [facility] Comment on above: Performed By: #### C BC ####[facility] PATHOLOGY [id number] [place], MCH (RBC) [Entitic mass] 30.4 pg Normal 26.0-34.0 [facility] Comment on above: Performed By: #### C BC ####[facility] PATHOLOGY [id number] [place], MCHC (RBC) [Mass/Vol] 34.0 g/dL Normal 32.0-35.9 [facility] Comment on above: Performed By: #### C BC ####[facility] PATHOLOGY [id number] [place], MCV (RBC) [Entitic vol] 89 fL Normal 80-100 [facility] Comment on above: Performed By: #### C BC ####[facility] PATHOLOGY [id number] [place], Platelet mean volume (Bld) [Entitic vol] 6.8 fL Low 7.5-11.2 [facility] Comment on above: Performed By: #### C BC ####[facility] PATHOLOGY [id number] [place], Platelets (Bld) [#/Vol] 482 10*3/uL High 150-400 [facility] Comment on above: Performed By: #### C BC ####[facility] PATHOLOGY [id number] [place], RBC (Bld) [#/Vol] 2.75 10*6/uL Low 4.50-5.90 [facility] Comment on above: Performed By: #### C BC ####[facility] PATHOLOGY [id number] [place], WBC (Bld) [#/Vol] 8.1 10*3/uL Normal 4.5-11.5 [facility] Comment on above: Performed By: #### C BC ####S PATHOLOGY [id number] [place], Care Plan Noteon 12-16-2020 Electrical Maintenance Engineer Authentication Interface Message Text Normal [facility] Electrical Maintenance Engineer Authentication Interface Message Text Updated POC Normal [facility] GLUCOSE, FINGERSTICK-IN OFFI CEon 12-16-2020 Glucose [Mass/Vol] 273 mg/dL High 80-116 [facility] Comment on above: Performed By: #### 8 2948 ####NURSING GLUCOSE [id number] [place], [address] Glucose [Mass/Vol] 243 mg/dL High 80-116 [facility] Comment on above: Performed By: #### 8 2948 ####NURSING GLUCOSE [id number] [place], [address] Glucose [Mass/Vol] 181 mg/dL High 80-116 [facility] Comment on above: Result Comment: Javier childress RN, APN, MD Performed By: #### 8 2948 ####NURSING GLUCOSE [id number] [place], [address] Glucose [Mass/Vol] 105 mg/dL Normal 80-116 [facility] Comment on above: Performed By: #### 8 2948 ####NURSING GLUCOSE [id number] [place], [address] MAGNESIUMon 12-16-2020 Magnesium [Mass/Vol] 1.7 mg/dL Normal 1.6-2.8 [facility] Comment on above: Performed By: #### JUSTINA Sales ####[facility] PATH[facility] [id number] [place], Progress Noteson 12-16-2020 Electrical Maintenance Engineer Authentication Interface Message Text Normal [facility] Electrical Maintenance Engineer Authentication Interface Message Text Normal [facility] XR CHEST AP OR PA 1 VIEWon 0 12-16-2020 XR CHEST AP OR PA 1 VIEW Normal [facility] ABO RH TYPEon 12-15-2020 ABO and Rh group Nom (Bld) Blood group O Rh(D) positive Normal [facility] Comment on above: Performed By: #### Jeovanny SALAS ####[facility] PATHOLOGY [id number] [place], BASIC METABOLIC PANELon - Anion gap [Moles/Vol] 12 mmol/L Normal 5-13 [facility] Comment on above: Performed By: #### C H8, MG ####[facility] PATHOLOGY [id number] [place], Calcium [Mass/Vol] 7.2 mg/dL Low 8.4-10.4 [facility] Comment on above: Performed By: #### C H8, MG ####[facility] PATHOLOGY [id number] [place], Chloride [Moles/Vol] 101 mmol/L Normal 97-111 [facility] Comment on above: Performed By: #### C H8, MG ####[facility] PATHOLOGY [id number] [place], CO2 [Moles/Vol] 26 mmol/L Normal 21-30 [facility] Comment on above: Performed By: #### C H8, MG ####[facility] PATHOLOGY [id number] [place], Creatinine [Mass/Vol] 0.76 mg/dL Low 0.80-1.30 [facility] Comment on above: Performed By: #### C H8, MG ####[facility] PATHOLOGY [id number] [place], ESTIMATED GFR (CKD-EPI) 96 mL/min/1.73sqm Normal >=60 [facility] Comment on above: Performed By: #### C H8, MG ####[facility] PATHOLOGY [id number] [place], Glucose [Mass/Vol] 218 mg/dL High 80-116 [facility] Comment on above: Performed By: #### C H8, MG ####[facility] PATHOLOGY [id number] [place], Potassium [Moles/Vol] 4.3 mmol/L Normal 3.3-5.3 [facility] Comment on above: Performed By: #### C H8, MG ####[facility] PATHOLOGY [id number] [place], Sodium [Moles/Vol] 135 mmol/L Normal 135-148 [facility] Comment on above: Performed By: #### C H8, MG ####[facility] PATHOLOGY [id number] [place], Urea nitrogen [Mass/Vol] 12 mg/dL Normal 8-22 [facility] Comment on above: Performed By: #### C H8, MG ####[facility] PATHOLOGY [id number] [place], COMPLETE BLOOD COUNTon 12-15 Erythrocyte distribution width (RBC) [Ratio] 15.2 % High 11.5-14.5 [facility] Comment on above: Performed By: #### C BC ####[facility] PATHOLOGY [id number] [place], Hematocrit (Bld) [Volume fraction] 25.1 % Low 41.0-53.0 [facility] Comment on above: Performed By: #### C BC ####[facility] PATHOLOGY [id number] [place], Hemoglobin (Bld) [Mass/Vol] 8.4 g/dL Low 13.9-16.3 [facility] Comment on above: Performed By: #### C BC ####[facility] PATHOLOGY [id number] [place], MCH (RBC) [Entitic mass] 29.8 pg Normal 26.0-34.0 [facility] Comment on above: Performed By: #### C BC ####[facility] PATHOLOGY [id number] [place], MCHC (RBC) [Mass/Vol] 33.4 g/dL Normal 32.0-35.9 [facility] Comment on above: Performed By: #### C BC ####[facility] PATHOLOGY [id number] [place], MCV (RBC) [Entitic vol] 89 fL Normal 80-100 [facility] Comment on above: Performed By: #### C BC ####[facility] PATHOLOGY [id number] [place], Platelet mean volume (Bld) [Entitic vol] 7.0 fL Low 7.5-11.2 [facility] Comment on above: Performed By: #### C BC ####S PATHOLOGY [id number] [place], Platelets (Bld) [#/Vol] 548 10*3/uL High 150-400 [facility] Comment on above: Performed By: #### C BC ####S PATHOLOGY [id number] [place], RBC (Bld) [#/Vol] 2.82 10*6/uL Low 4.50-5.90 [facility] Comment on above: Performed By: #### C BC ####[facility] PATHOLOGY [id number] [place], WBC (Bld) [#/Vol] 8.4 10*3/uL Normal 4.5-11.5 [facility] Comment on above: Performed By: #### C BC ####[facility] PATHOLOGY [id number] [place], Care Plan Noteon 12-15-2020 Electrical Maintenance Engineer Authentication Interface Message Text Normal [facility] Consultson 12-15-2020 Electrical Maintenance Engineer Authentication Interface Message Text Normal [facility] GLUCOSE, FINGERSTICK-IN OFFI CEon 12-15-2020 Glucose [Mass/Vol] 149 mg/dL High 80-116 [facility] Comment on above: Result Comment: Javier childress RN, APN, MD Performed By: #### 8 2948 ####NURSING GLUCOSE [id number] [place], [address] Glucose [Mass/Vol] 138 mg/dL High 80-116 [facility] Comment on above: Performed By: #### 8 2948 ####NURSING GLUCOSE [id number] [place], [address] Glucose [Mass/Vol] 144 mg/dL High 80-116 [facility] Comment on above: Performed By: #### 8 2943 ####NURSING GLUCOSE [id number] [place], [address] Glucose [Mass/Vol] 198 mg/dL High 80-116 [facility] Comment on above: Performed By: #### 8 4962 ####NURSING GLUCOSE [id number] [place], [address] Glucose [Mass/Vol] 270 mg/dL High 80-116 [facility] Comment on above: Result Comment: Javier childress RN, APN, MD Performed By: #### 8 2948 ####NURSING GLUCOSE [id number] [place], [address] MAGNESIUMon 12-15-2020 Magnesium [Mass/Vol] 1.7 mg/dL Normal 1.6-2.8 [facility] Comment on above: Performed By: #### C H8, MG ####[facility] PATH[facility] [id number] [place], Progress Noteson 12-15-2020 Electrical Maintenance Engineer Authentication Interface Message Text Normal [facility] Electrical Maintenance Engineer Authentication Interface Message Text SW continue to follow for DC planning. Pt to be DC to [facility]. Will need a precert. Please notify SW when pt is nearing DC. No weekend DC. JERMAINE LM with brother Ed, alerting him to the above. Isabel Morrison, [facility], [facility] [phone] Normal [facility] Electrical Maintenance Engineer Authentication Interface Message Text Normal [facility] TYPE AND SCREENon 12-15-2020 ABO and Rh group Nom (Bld) Blood group O Rh(D) positive Normal [facility] Comment on above: Performed By: #### T S ####[facility] PATHOLOG[facility] [id number] [place], ABO and Rh group Nom (Bld) No Previous Results Normal [facility] Comment on above: Performed By: #### T S ####[facility] PATHOLOGY [id number] [place], ABSC INT Negative Normal [facility] Comment on above: Performed By: #### T S ####[facility] PATHOLOGY [id number] [place], XR CHEST AP OR PA 1 VIEWon 0 12-15-2020 XR CHEST AP OR PA 1 VIEW Normal [facility] Care Plan Noteon 12-14-2020 Electrical Maintenance Engineer Authentication Interface Message Text Normal The [employer] [facility] Consultson 12-14-2020 Electrical Maintenance Engineer Authentication Interface Message Text Normal [facility] GLUCOSE, FINGERSTICK-IN OFFI CEon 12-14-2020 Glucose [Mass/Vol] 184 mg/dL High 80-116 [facility] Comment on above: Performed By: #### 8 2948 ####NURSING GLUCOSE [id number] [place], [address] Glucose [Mass/Vol] 218 mg/dL High 80-116 [facility] Comment on above: Performed By: #### 8 2948 ####NURSING GLUCOSE [id number] [place], [address] Glucose [Mass/Vol] 168 mg/dL High 80-116 [facility] Comment on above: Performed By: #### 8 2948 ####NURSING GLUCOSE [id number] [place], [address] Progress Noteson 12-14-2020 Electrical Maintenance Engineer Authentication Interface Message Text Normal [facility] Electrical Maintenance Engineer Authentication Interface Message Text Normal [facility] Electrical Maintenance Engineer Authentication Interface Message Text Normal [facility] XR CHEST AP OR PA 1 VIEWon 0 12-14-2020 XR CHEST AP OR PA 1 VIEW Normal [facility] BASIC METABOLIC PANELon 06-2 Anion gap [Moles/Vol] 14 mmol/L High 5-13 [facility] Comment on above: Performed By: #### Sofia Apodaca8, MG ####[facility] PATHOLOGY [id number] [place] [address], Calcium [Mass/Vol] 7.3 mg/dL Low 8.4-10.4 [facility] Comment on above: Performed By: #### Sofia Apodaca8, MG ####[facility] PATHOLOGY [id number] [place], Chloride [Moles/Vol] 101 mmol/L Normal 97-111 [facility] Comment on above: Performed By: #### Sofia Apodaca8, MG ####[facility] PATHOLOGY [id number] [place], CO2 [Moles/Vol] 22 mmol/L Normal 21-30 [facility] Comment on above: Performed By: #### Sofia Shah, MG ####[facility] PATH[facility] [id number] [place], [place], Creatinine [Mass/Vol] 0.76 mg/dL Low 0.80-1.30 [facility] Comment on above: Performed By: ###Libra Shah, MG ####S PATHOLOGY [id number] [place], [place], ESTIMATED GFR (CKD-EPI) 96 mL/min/1.73sqm Normal >=60 [facility] Comment on above: Performed By: #### Sofia Shah, MG ####S PATHOLOGY [id number] [place], [place], Glucose [Mass/Vol] 218 mg/dL High 80-116 [facility] Comment on above: Performed By: #### Sofia Shah, MG ####S PATHOLOGY [id number] [place] [address], Potassium [Moles/Vol] 4.7 mmol/L Normal 3.3-5.3 [facility] Comment on above: Result Comment: Hemo lysis present Performed By: #### Sofia Shah, MG ####[facility] PATHOLOGY [id number] [place] [address], Sodium [Moles/Vol] 132 mmol/L Low 135-148 [facility] Comment on above: Performed By: #### Sofia Shah, MG ####S PATHOLOGY [id number] [place] [address], Urea nitrogen [Mass/Vol] 16 mg/dL Normal 8-22 [facility] Comment on above: Performed By: #### Sofia Shah, MG ####S PATHOLOGY [id number] [place], COMPLETE BLOOD COUNTon 12-13 Erythrocyte distribution width (RBC) [Ratio] 15.4 % High 11.5-14.5 [facility] Comment on above: Performed By: #### Sofia BC ####[facility] PATHOLOG[facility] [id number] [place], Hematocrit (Bld) [Volume fraction] 24.9 % Low 41.0-53.0 [facility] Comment on above: Performed By: #### Sofia RESENDIZ ####[facility] PATHOLOGY [id number] [place], Hemoglobin (Bld) [Mass/Vol] 8.5 g/dL Low 13.9-16.3 [facility] Comment on above: Performed By: #### C BC ####[facility] PATHOLOGY [id number] [place], MCH (RBC) [Entitic mass] 30.6 pg Normal 26.0-34.0 [facility] Comment on above: Performed By: #### C BC ####[facility] PATHOLOGY [id number] [place], MCHC (RBC) [Mass/Vol] 34.1 g/dL Normal 32.0-35.9 [facility] Comment on above: Performed By: #### C BC ####[facility] PATHOLOGY [id number] [place], MCV (RBC) [Entitic vol] 90 fL Normal 80-100 [facility] Comment on above: Performed By: #### C BC ####[facility] PATHOLOGY [id number] [place], Platelet mean volume (Bld) [Entitic vol] 7.1 fL Low 7.5-11.2 [facility] Comment on above: Performed By: #### C BC ####[facility] PATHOLOGY [id number] [place], Platelets (Bld) [#/Vol] 597 10*3/uL High 150-400 [facility] Comment on above: Performed By: #### C BC ####[facility] PATHOLOGY [id number] [place], RBC (Bld) [#/Vol] 2.77 10*6/uL Low 4.50-5.90 [facility] Comment on above: Performed By: #### C BC ####[facility] PATHOLOGY [id number] [place], WBC (Bld) [#/Vol] 10.0 10*3/uL Normal 4.5-11.[address] 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 Authentication Interface Message Text Normal [facility] Electrical Maintenance Engineer Authentication Interface Message Text Normal [facility] GLUCOSE, FINGERSTICK-IN OFFI CEon 12-13-2020 Glucose [Mass/Vol] 256 mg/dL High 80-116 [facility] Comment on above: Performed By: #### 8 2948 ####NURSING GLUCOSE [id number] [place], [address] Glucose [Mass/Vol] 231 mg/dL High 80-116 [facility] Comment on above: Performed By: #### 8 2948 ####NURSING GLUCOSE [id number] [place], [address] Glucose [Mass/Vol] 216 mg/dL High 80-116 [facility] Comment on above: Performed By: #### 8 2948 ####NURSING GLUCOSE [id number] [place], [address] Glucose [Mass/Vol] 221 mg/dL High 80-116 [facility] Comment on above: Performed By: #### 8 2948 ####NURSING GLUCOSE [id number] [place], [address] MAGNESIUMon 12-13-2020 Magnesium [Mass/Vol] 1.9 mg/dL Normal 1.6-2.8 [facility] Comment on above: Result Comment: Hemo lysis present Performed By: #### C H8, MG ####[facility] PATHOLOGY [id number] [place], [place], Progress Noteson 12-13-2020 Electrical Maintenance Engineer Authentication Interface Message Text SW obtained SS Number: [id number] Pt has been accepted to [facility]. Please alert SW when pt is nearing [place]. Pt with +Chest Tube. [id number] submitted in GLADIS Morrison [facility] [phone] Normal [facility] Electrical Maintenance Engineer Authentication Interface Message Text Normal [facility] Electrical Maintenance Engineer Authentication Interface Message Text Normal [facility] XR CHEST AP OR PA 1 VIEWon 0 12-13-2020 XR CHEST AP OR PA 1 VIEW Normal [facility] BASIC METABOLIC PANELon 06-2 Anion gap [Moles/Vol] 12 mmol/L Normal 5-[address] [facility] Comment on above: Performed By: #### NEREIDA Santos MG ####[facility] PATHOLOGY [id number] [place], Calcium [Mass/Vol] 7.3 mg/dL Low 8.4-10.[address] [facility] Comment on above: Performed By: #### NEREIDA Santos MG ####[facility] PATHOLOG[facility] [id number] [place], Chloride [Moles/Vol] 103 mmol/L Normal 97-111 [facility] Comment on above: Performed By: #### NEREIDA Santos MG ####[facility] PATHOLOGY [id number] [place], CO2 [Moles/Vol] 22 mmol/L Normal 21-30 [facility] Comment on above: Performed By: #### NEREIDA Santos MG ####[facility] PATHOLOGY [id number] [place], Creatinine [Mass/Vol] 0.85 mg/dL Normal 0.80-1.30 [facility] Comment on above: Performed By: #### NEREIDA Santos MG ####[facility] PATHOLOGY [id number] [place], ESTIMATED GFR (CKD-EPI) 92 mL/min/1.73sqm Normal >=[address] [facility] Comment on above: Performed By: #### NEREIDA Santos MG ####[facility] PATHOLOGY [id number] [place], Glucose [Mass/Vol] 196 mg/dL High 80-116 [facility] Comment on above: Performed By: #### NEREIDA Santos MG ####[facility] PATHOLOGY [id number] [place], Potassium [Moles/Vol] 4.2 mmol/L Normal 3.3-5.3 [facility] Comment on above: Performed By: #### NEREIDA Santos MG ####S PATHOLOGY [id number] [place], Sodium [Moles/Vol] 133 mmol/L Low 135-148 [facility] Comment on above: Performed By: #### NEREIDA Santos MG ####S PATHOLOGY [id number] [place], Urea nitrogen [Mass/Vol] 20 mg/dL Normal 8-22 [facility] Comment on above: Performed By: #### NEREIDA Santos MG ####[facility] PATHOLOGY [id number] [place], COMPLETE BLOOD COUNTon 12-12 Erythrocyte distribution width (RBC) [Ratio] 15.2 % High 11.5-14.5 [facility] Comment on above: Performed By: #### C BC ####[facility] PATHOLOGY [id number] [place], Hematocrit (Bld) [Volume fraction] 23.7 % Low 41.0-53.0 [facility] Comment on above: Performed By: #### C BC ####[facility] PATHOLOGY [id number] [place], Hemoglobin (Bld) [Mass/Vol] 7.6 g/dL Low 13.9-16.3 [facility] Comment on above: Performed By: #### C BC ####S PATHOLOGY [id number] [place], MCH (RBC) [Entitic mass] 29.1 pg Normal 26.0-34.0 [facility] Comment on above: Performed By: #### C BC ####S PATHOLOGY [id number] [place], MCHC (RBC) [Mass/Vol] 32.2 g/dL Normal 32.0-35.9 [facility] Comment on above: Performed By: #### C BC ####S PATHOLOGY [id number] [place], MCV (RBC) [Entitic vol] 91 fL Normal 80-100 [facility] Comment on above: Performed By: #### C BC ####S PATHOLOGY [id number] [place], Platelet mean volume (Bld) [Entitic vol] 7.0 fL Low 7.5-11.2 [facility] Comment on above: Performed By: #### C BC ####S PATHOLOGY [id number] [place], Platelets (Bld) [#/Vol] 593 10*3/uL High 150-400 [facility] Comment on above: Performed By: #### C BC ####[facility] PATHOLOGY [id number] [place], RBC (Bld) [#/Vol] 2.62 10*6/uL Low 4.50-5.90 [facility] Comment on above: Performed By: #### C BC ####[facility] PATHOLOGY [id number] [place], WBC (Bld) [#/Vol] 13.6 10*3/uL High 4.5-11.5 [facility] Comment on above: Performed By: #### C BC ####[facility] PATHOLOGY [id number] [place], [place], CT CHEST W/O CONTRASTon 11-22 CT CHEST W/O CONTRAST Normal [facility] Care Plan Noteon 12-12-2020 Electrical Maintenance Engineer Authentication Interface Message Text Normal [facility] Consultson 12-12-2020 Electrical Maintenance Engineer Authentication Interface Message Text Normal [facility] Electrical Maintenance Engineer Authentication Interface Message Text Normal [facility] GLUCOSE, FINGERSTICK-IN OFFI CEon 12-12-2020 Glucose [Mass/Vol] 264 mg/dL High 80-116 [facility] Comment on above: Result Comment: Javier childress RN, APN, MD Performed By: #### 8 2948 ####NURSING GLUCOSE [id number] [place], [address] Glucose [Mass/Vol] 250 mg/dL High 80-116 [facility] Comment on above: Result Comment: Javier childress RN, APN, MD Performed By: #### 8 2948 ####NURSING GLUCOSE [id number] [place], [address] Glucose [Mass/Vol] 217 mg/dL High 80-116 [facility] Comment on above: Result Comment: Javier childress RN, APN, MD Performed By: #### 8 2948 ####NURSING GLUCOSE [id number] [place], [address] Glucose [Mass/Vol] 163 mg/dL High 80-116 [facility] Comment on above: Result Comment: Javier childress RN, APN, MD Performed By: #### 8 2948 ####NURSING GLUCOSE [id number] [place], [address] Glucose [Mass/Vol] 270 mg/dL High 80-116 [facility] Comment on above: Performed By: #### 8 2948 ####NURSING GLUCOSE [id number] [place] [address], [address] MAGNESIUMon 12-12-2020 Magnesium [Mass/Vol] 2.1 mg/dL Normal 1.6-2.8 [facility] Comment on above: Performed By: #### Sofia Shah, PHOS, MG ####[facility] PATHOLOGY [id number] [place], PHOSPHORUSon 12-12-2020 Phosphate [Mass/Vol] 3.0 mg/dL Normal 2.5-4.8 [facility] Comment on above: Performed By: #### Sofia Shah, PHOS, MG ####[facility] PATHOLOGY [id number] [place], Progress Noteson 12-12-2020 Electrical Maintenance Engineer Authentication Interface Message Text Normal [facility] Electrical Maintenance Engineer Authentication Interface Message Text Normal [facility] XR CHEST AP OR PA 1 VIEWon 0 12-12-2020 XR CHEST AP OR PA 1 VIEW Normal [facility] ANTI FXA-LMW HEPARINon 12-11 ANTI FXA-LMW HEPARIN ASSAY 0.04 IU/mL Normal [facility] Comment on above: Order Comment: The r ecommended therapeutic range for treatment of thrombosis with Low Molecular Weight Heparin is 0.5 - 1.0 IU/mLThe recommended range for VTE prophylaxis with Low Molecular Weight Heparin is 0.2 - 0.4 IU/mL. Performed By: #### A XL ####[facility] PATHOLOGY [id number] [place], BASIC METABOLIC PANELon 06-2 Anion gap [Moles/Vol] 15 mmol/L High 5-13 [facility] Comment on above: Performed By: #### Rosa Wells, CH8 ####[facility] PATHOLOGY [id number] [place], Calcium [Mass/Vol] 7.3 mg/dL Low 8.4-10.4 [facility] Comment on above: Performed By: #### Rosa Wells, JASON8 ####[facility] PATHOLOGY [id number] [place], Chloride [Moles/Vol] 99 mmol/L Normal 97-111 [facility] Comment on above: Performed By: #### Rosa Wells, CH8 ####[facility] PATHOLOGY [id number] [place], CO2 [Moles/Vol] 19 mmol/L Low 21-30 [facility] Comment on above: Performed By: #### Roas Wells, JASON8 ####[facility] PATHOLOGY [id number] [place], Creatinine [Mass/Vol] 0.79 mg/dL Low 0.80-1.30 [facility] Comment on above: Performed By: #### Rosa Wells, CH8 ####[facility] PATHOLOGY [id number] [place], ESTIMATED GFR (CKD-EPI) 95 mL/min/1.73sqm Normal >=60 [facility] Comment on above: Performed By: #### Rosa Wells, CH8 ####S PATHOLOGY [id number] [place], Glucose [Mass/Vol] 212 mg/dL High 80-116 [facility] Comment on above: Performed By: #### Rosa Wells, CH8 ####[facility] PATHOLOGY [id number] [place], Potassium [Moles/Vol] 5.0 mmol/L Normal 3.3-5.3 [facility] Comment on above: Result Comment: Hemo lysis present Performed By: #### Rosa Wells, CH8 ####[facility] PATHOLOGY [id number] [place], Sodium [Moles/Vol] 128 mmol/L Low 135-148 [facility] Comment on above: Performed By: #### Rosa Wells, JASON8 ####[facility] PATHOLOGY [id number] [place], Urea nitrogen [Mass/Vol] 17 mg/dL Normal 8-22 [facility] Comment on above: Performed By: #### Rosa Wells, JASON8 ####[facility] PATHOLOGY [id number] [place], COMPLETE BLOOD COUNTon 12-11 Erythrocyte distribution width (RBC) [Ratio] 15.3 % High 11.5-14.[address] [facility] Comment on above: Performed By: #### C BC ####[facility] PATHOLOGY [id number] [place], Hematocrit (Bld) [Volume fraction] 29.4 % Low 41.0-53.[address] [facility] Comment on above: Performed By: #### C BC ####[facility] PATHOLOGY [id number] [place], Hemoglobin (Bld) [Mass/Vol] 9.7 g/dL Low 13.9-16.3 [facility] Comment on above: Performed By: #### C BC ####[facility] PATHOLOGY [id number] [place], MCH (RBC) [Entitic mass] 29.6 pg Normal 26.0-34.0 [facility] Comment on above: Performed By: #### C BC ####[facility] PATHOLOGY [id number] [place], MCHC (RBC) [Mass/Vol] 32.9 g/dL Normal 32.0-35.9 [facility] Comment on above: Performed By: #### C BC ####S PATHOLOGY [id number] [place], MCV (RBC) [Entitic vol] 90 fL Normal 80-100 [facility] Comment on above: Performed By: #### C BC ####S PATHOLOGY [id number] [place], Platelet mean volume (Bld) [Entitic vol] 7.3 fL Low 7.5-11.2 [facility] Comment on above: Performed By: #### C BC ####S PATHOLOGY [id number] [place], Platelets (Bld) [#/Vol] 433 10*3/uL High 150-400 [facility] Comment on above: Performed By: #### C BC ####S PATHOLOGY [id number] [place], RBC (Bld) [#/Vol] 3.26 10*6/uL Low 4.50-5.90 [facility] Comment on above: Performed By: #### C BC ####[facility] PATHOLOGY [id number] [place], WBC (Bld) [#/Vol] 14.5 10*3/uL High 4.5-11.5 [facility] Comment on above: Performed By: #### C BC ####S PATHOLOGY [id number] [place], Care Plan Noteon 12-11-2020 Electrical Maintenance Engineer Authentication Interface Message Text Normal [facility] Consultson 12-11-2020 Electrical Maintenance Engineer Authentication Interface Message Text Normal [facility] Electrical Maintenance Engineer Authentication Interface Message Text Normal [facility] Electrical Maintenance Engineer Authentication Interface Message Text Normal [facility] GLUCOSE, FINGERSTICK-IN OFFI CEon 12-11-2020 Glucose [Mass/Vol] 242 mg/dL High 80-116 [facility] Comment on above: Result Comment: Javier childress RN, APN, MD Performed By: #### 8 2948 ####NURSING GLUCOSE [id number] [place], [address] Glucose [Mass/Vol] 219 mg/dL High 80-116 [facility] Comment on above: Result Comment: Javier childress RN, APN, MD Performed By: #### 8 2948 ####NURSING GLUCOSE [id number] [place], [address] Glucose [Mass/Vol] 194 mg/dL High 80-116 [facility] Comment on above: Result Comment: Javier childress RN, APN, MD Performed By: #### 8 2948 ####NURSING GLUCOSE [id number] [place], [address] MAGNESIUMon 12-11-2020 Magnesium [Mass/Vol] 1.8 mg/dL Normal 1.6-2.8 [facility] Comment on above: Result Comment: Hemo lysis present Performed By: #### M Russell, CH8 ####[facility] PATH[facility] [id number] [place], [place], Progress Noteson 12-11-2020 Electrical Maintenance Engineer Authentication Interface Message Text Normal [facility] Electrical Maintenance Engineer Authentication Interface Message Text Chart and images reviewed with Dr. Loyd. Pigtail placed 12/08; pleural cultures +strep. No recent CT chest after tube placement. Please perform non-contrast CT chest Full note to follow pending results Nba Chow PA-C Normal [facility] Electrical Maintenance Engineer Authentication Interface Message Text Normal [facility] Electrical Maintenance Engineer Authentication Interface Message Text Normal [facility] Electrical Maintenance Engineer Authentication Interface Message Text Normal [facility] VANCOMYCIN TROUGHon 12-12-19 21 VANC TR 13.1 ug/mL Normal 10.0-20.0 [facility] Comment on above: Performed By: #### V ANC TR ####[facility] PATHOLOGY [id number] [place], XR CHEST AP OR PA 1 VIEWon 0 12-11-2020 XR CHEST AP OR PA 1 VIEW Normal [facility] Care Plan Noteon 12-10-2020 Electrical Maintenance Engineer Authentication Interface Message Text Normal [facility] GLUCOSE, FINGERSTICK-IN OFFI CEon 12-10-2020 Glucose [Mass/Vol] 252 mg/dL High 80-116 [facility] Comment on above: Result Comment: Javier childress RN, APN, MD Performed By: #### 8 2948 ####NURSING GLUCOSE [id number] [place], [address] Glucose [Mass/Vol] 198 mg/dL High 80-116 [facility] Comment on above: Performed By: #### 8 2948 ####NURSING GLUCOSE [id number] [place], [address] Glucose [Mass/Vol] 269 mg/dL High 80-116 [facility] Comment on above: Performed By: #### 8 2948 ####NURSING GLUCOSE [id number] [place], [address] Glucose [Mass/Vol] 194 mg/dL High 80-116 [facility] Comment on above: Performed By: #### 8 2948 ####NURSING GLUCOSE [id number] [place], [address] Glucose [Mass/Vol] 186 mg/dL High 80-116 [facility] Comment on above: Result Comment: Javier childress RN, APN, MD Performed By: #### 8 2948 ####NURSING GLUCOSE QVDHCJJ[address] [place] [address], [address] Progress Noteson 12-10-2020 Electrical Maintenance Engineer Authentication Interface Message Text Normal [facility] Electrical Maintenance Engineer Authentication Interface Message Text Normal [facility] Electrical Maintenance Engineer Authentication Interface Message Text Normal [facility] VANCOMYCIN TROUGHon 12-11-19 21 VANC TR 14.2 ug/mL Normal 10.0-20.0 [facility] Comment on above: Performed By: #### V ANC TR ####[facility] PATHOLOGY [id number] [place] [address], ANTI FXA-LMW HEPARINon 12-09 ANTI FXA-LMW HEPARIN ASSAY 0.24 IU/mL Normal [facility] Comment on above: Order Comment: The r ecommended therapeutic range for treatment of thrombosis with Low Molecular Weight Heparin is 0.5 - 1.0 IU/mLThe recommended range for VTE prophylaxis with Low Molecular Weight Heparin is 0.2 - 0.4 IU/mL. Performed By: #### A XL ####[facility] PATHOLOGY [id number] [place] [address], BASIC METABOLIC PANELon 11-21 Anion gap [Moles/Vol] 12 mmol/L Normal 5-13 [facility] Comment on above: Performed By: #### V AL, PHOS, MG, CH8 ####S PATHOLOGY [id number] [place], Calcium [Mass/Vol] 7.4 mg/dL Low 8.4-10.4 [facility] Comment on above: Performed By: #### V AL, PHOS, MG, CH8 ####S PATHOLOGY [id number] [place] [address], Chloride [Moles/Vol] 98 mmol/L Normal 97-111 [facility] Comment on above: Performed By: #### V AL, PHOS, MG, CH8 ####S PATHOLOGY ILWOSUERAT79[address] [place] [address], CO2 [Moles/Vol] 26 mmol/L Normal 21-30 [facility] Comment on above: Performed By: #### V AL, PHOS, MG, CH8 ####S PATHOLOGY PAOLXZYHDT99[address] [place] [address], Creatinine [Mass/Vol] 0.87 mg/dL Normal 0.80-1.30 [facility] Comment on above: Performed By: #### V AL, PHOS, MG, CH8 ####S PATHOLOGY [id number] [place] [address], ESTIMATED GFR (CKD-EPI) 91 mL/min/1.73sqm Normal >=60 [facility] Comment on above: Performed By: #### V AL, PHOS, MG, CH8 ####S PATHOLOGY [id number] [place], Glucose [Mass/Vol] 265 mg/dL High 80-116 [facility] Comment on above: Performed By: #### V AL, PHOS, MG, CH8 ####[facility] PATHOLOGY [id number] [place], Potassium [Moles/Vol] 3.8 mmol/L Normal 3.3-5.3 [facility] Comment on above: Performed By: #### V AL, PHOS, MG, CH8 ####S PATHOLOGY [id number] [place], Sodium [Moles/Vol] 132 mmol/L Low 135-148 [facility] Comment on above: Performed By: #### V AL, PHOS, MG, CH8 ####S PATHOLOGY [id number] [place], [place], Urea nitrogen [Mass/Vol] 22 mg/dL Normal 8-22 [facility] Comment on above: Performed By: #### V AL, PHOS, MG, CH8 ####[facility] PATHOLOGY [id number] [place], [place], CALCIUM, IONIZEDon CR ICA 1.09 mmol/L Low 1.10-1.40 [facility] Comment on above: Performed By: #### C R ICA ####[facility] PATHOLOGY [id number] [place], [place], COMPLETE BLOOD COUNTon 12-09 Erythrocyte distribution width (RBC) [Ratio] 15.0 % High 11.5-14.5 [facility] Comment on above: Performed By: #### C BC ####[facility] PATHOLOGY [id number] [place], [place], Hematocrit (Bld) [Volume fraction] 24.1 % Low 41.0-53.0 [facility] Comment on above: Performed By: #### C BC ####[facility] PATHOLOGY [id number] [place], Hemoglobin (Bld) [Mass/Vol] 8.1 g/dL Low 13.9-16.3 [facility] Comment on above: Performed By: #### C BC ####[facility] PATHOLOGY [id number] [place], MCH (RBC) [Entitic mass] 30.1 pg Normal 26.0-34.0 [facility] Comment on above: Performed By: #### C BC ####[facility] PATHOLOGY [id number] [place], MCHC (RBC) [Mass/Vol] 33.5 g/dL Normal 32.0-35.9 [facility] Comment on above: Performed By: #### C BC ####[facility] PATHOLOGY [id number] [place], MCV (RBC) [Entitic vol] 90 fL Normal 80-100 [facility] Comment on above: Performed By: #### C BC ####[facility] PATHOLOGY [id number] [place], Platelet mean volume (Bld) [Entitic vol] 8.2 fL Normal 7.5-11.2 [facility] Comment on above: Performed By: #### C BC ####[facility] PATHOLOGY [id number] [place], Platelets (Bld) [#/Vol] 428 10*3/uL High 150-400 [facility] Comment on above: Performed By: #### C BC ####[facility] PATHOLOGY [id number] [place], RBC (Bld) [#/Vol] 2.68 10*6/uL Low 4.50-5.90 [facility] Comment on above: Performed By: #### C BC ####[facility] PATHOLOGY [id number] [place], WBC (Bld) [#/Vol] 16.2 10*3/uL High 4.5-11.5 [facility] Comment on above: Performed By: #### C BC ####[facility] PATHOLOGY [id number] [place], Care Plan Noteon 12-09-2020 Electrical Maintenance Engineer Authentication Interface Message Text Normal [facility] GLUCOSE, FINGERSTICK-IN OFFI CEon 12-09-2020 Glucose [Mass/Vol] 319 mg/dL High 80-116 [facility] Comment on above: Performed By: #### 8 2948 ####NURSING GLUCOSE [id number] [place], Glucose [Mass/Vol] 304 mg/dL High 80-116 [facility] Comment on above: Performed By: #### 8 2948 ####NURSING GLUCOSE [id number] [place], [address] Glucose [Mass/Vol] 285 mg/dL High 80-116 [facility] Comment on above: Performed By: #### 8 2948 ####NURSING GLUCOSE [id number] [place], [address] Glucose [Mass/Vol] 279 mg/dL High 80-116 [facility] Comment on above: Performed By: #### 8 2948 ####NURSING GLUCOSE [id number] [place], [address] Glucose [Mass/Vol] 368 mg/dL High 80-116 [facility] Comment on above: Performed By: #### 8 2948 ####NURSING GLUCOSE [id number] [place], [address] MAGNESIUMon 12-09-2020 Magnesium [Mass/Vol] 2.0 mg/dL Normal 1.6-2.8 [facility] Comment on above: Performed By: #### V AL, PHOS, MG, CH8 ####[facility] [id number] [place], PHOSPHORUSon 12-09-2020 Phosphate [Mass/Vol] 2.9 mg/dL Normal 2.5-4.8 [facility] Comment on above: Performed By: #### V AL, PHOS, MG, CH8 ####[facility] PATH[facility] [id number] [place], [place], Progress Noteson 12-09-2020 Electrical Maintenance Engineer Authentication Interface Message Text Patient received the Sacrament of the ANOINTING OF THE SICK from Fr. Shaggy Ornelas ([phone]). Normal [facility] Electrical Maintenance Engineer Authentication Interface Message Text Normal The [facility] VALPROIC ACIDon 12-09-2020 FRANCOISE 19 ug/mL Low 50-100 [facility] Comment on above: Performed By: #### V AL, PHOS, MG, CH8 ####[facility] [id number] [place], XR CHEST AP OR PA 1 VIEWon 0 12-09-2020 XR CHEST AP OR PA 1 VIEW Normal [facility] AEROBIC BODY FLUID CULTUREon 12-08-2020 AEROBIC BODY FLUID CULTURE Normal [facility] Comment on above: Performed By: #### C BDYFLD ####[facility] Zkdvxptkz2471 [place], [place] BASIC METABOLIC PANELon 11-21 Anion gap [Moles/Vol] 13 mmol/L Normal 5-13 [facility] Comment on above: Performed By: #### JUSTINA Sales, PHOS ####[facility] PATH[facility]Y [id number] [place], Calcium [Mass/Vol] 7.5 mg/dL Low 8.4-10.4 [facility] Comment on above: Performed By: #### JUSTINA Sales, HASMUKHS ####[facility] PATH[facility]Y [id number] [place], Chloride [Moles/Vol] 97 mmol/L Normal 97-[address] [facility] Comment on above: Performed By: #### JUSTINA Sales, NEREIDA ####[facility] PATH[facility] [id number] [place], CO2 [Moles/Vol] 28 mmol/L Normal 21-30 [facility] Comment on above: Performed By: #### JUSTINA Sales, HASMUKHS ####[facility] PATHOLOGY [id number] [place], Creatinine [Mass/Vol] 1.09 mg/dL Normal 0.80-1.30 [facility] Comment on above: Performed By: #### JUSTINA Sales, NEREIDA ####[facility] [id number] [place], ESTIMATED GFR (CKD-EPI) 71 mL/min/1.73sqm Normal >=60 [facility] Comment on above: Performed By: #### JUSTINA Sales, PHOS ####[facility] [id number] [place], Glucose [Mass/Vol] 246 mg/dL High 80-[address] [facility] Comment on above: Performed By: #### JUSTINA Sales, HASMUKHS ####[facility] PATH[facility]Y [id number] [place], Potassium [Moles/Vol] 3.7 mmol/L Normal 3.3-5.3 [facility] Comment on above: Performed By: #### JUSTINA Sales, NEREIDA ####[facility] PATHOLOGY [id number] [place], Sodium [Moles/Vol] 134 mmol/L Low 135-[address] [facility] Comment on above: Performed By: #### JUSTINA Sales, NEREIDA ####[facility] PATHOLOGY [id number] [place], Urea nitrogen [Mass/Vol] 25 mg/dL High 8-22 [facility] Comment on above: Performed By: #### JUSTINA Sales, NEREIDA ####[facility] PATHOLOGY [id number] [place], BLOOD GAS, ARTERIALon 2020 CR LESA 4.9 mmol/L High -2.0-2.0 [facility] Comment on above: Performed By: #### Sofia R BGA ####[facility] PATHOLOGY [id number] [place], [place], CR PCO2 39.6 mm Hg Normal 35.0-45.0 [facility] Comment on above: Performed By: #### C R BGA ####[facility] PATHOLOGY [id number] [place], CR PHA 7.471 High 7.35-7.45 [facility] Comment on above: Performed By: #### C R BGA ####S PATHOLOGY [id number] [place], CR PO2 82 mm Hg Normal 80-100 mm Hg [facility] Comment on above: Performed By: #### C R BGA ####S PATHOLOGY [id number] [place], FIO2 (CATEGORY) 40% Normal [facility] Comment on above: Result Comment: 40L Performed By: #### C R BGA ####S PATHOLOGY [id number] [place], HCO3 (Bld) [Moles/Vol] 29 mmol/L High 22-28 [facility] Comment on above: Performed By: #### C R BGA ####[facility] PATHOLOGY [id number] [place], MODE Nasal Canula Normal [facility] Comment on above: Result Comment: HFNC Performed By: #### C R BGA ####[facility] PATHOLOGY [id number] [place], Oxygen saturation in Blood 96.9 % Normal >=95.1 [facility] Comment on above: Performed By: #### C R BGA ####[facility] PATHOLOGY [id number] [place], CALCIUM, IONIZEDon CR ICA 1.05 mmol/L Low 1.10-1.[address] [facility] Comment on above: Performed By: #### L ACT, CR ICA ####[facility] PATHOLOGY [id number] [place] [address], COMPLETE BLOOD COUNTon 12-08 Erythrocyte distribution width (RBC) [Ratio] 14.8 % High 11.5-14.5 [facility] Comment on above: Performed By: #### C BC ####[facility] PATHOLOGY [id number] [place] [address], Hematocrit (Bld) [Volume fraction] 23.4 % Low 41.0-53.0 [facility] Comment on above: Performed By: #### C BC ####[facility] PATHOLOGY [id number] [place], Hemoglobin (Bld) [Mass/Vol] 7.7 g/dL Low 13.9-16.3 [facility] Comment on above: Performed By: #### C BC ####[facility] PATHOLOGY [id number] [place], MCH (RBC) [Entitic mass] 30.0 pg Normal 26.0-34.0 [facility] Comment on above: Performed By: #### C BC ####[facility] PATHOLOGY [id number] [place] [address], MCHC (RBC) [Mass/Vol] 32.8 g/dL Normal 32.0-35.9 [facility] Comment on above: Performed By: #### C BC ####[facility] PATHOLOGY [id number] [place], MCV (RBC) [Entitic vol] 92 fL Normal 80-100 [facility] Comment on above: Performed By: #### C BC ####[facility] PATHOLOGY [id number] [place], Platelet mean volume (Bld) [Entitic vol] 8.5 fL Normal 7.5-11.2 [facility] Comment on above: Performed By: #### C BC ####[facility] PATHOLOGY [id number] [place], Platelets (Bld) [#/Vol] 339 10*3/uL Normal 150-400 [facility] Comment on above: Performed By: #### C BC ####[facility] PATHOLOGY [id number] [place], RBC (Bld) [#/Vol] 2.55 10*6/uL Low 4.50-5.[address] [facility] Comment on above: Performed By: #### C BC ####[facility] PATHOLOGY [id number] [place], WBC (Bld) [#/Vol] 17.9 10*3/uL High 4.5-11.5 [facility] Comment on above: Performed By: #### C BC ####[facility] PATHOLOGY [id number] [place], [place], CT CHEST/ABD/PELVIS W/ CONTR Pattie 12-08-2020 CT CHEST/ABD/PELVIS W/ CONTRAST Normal [facility] Care Plan Noteon 12-08-2020 Electrical Maintenance Engineer Authentication Interface Message Text Normal [facility] Consultson 12-08-2020 Electrical Maintenance Engineer Authentication Interface Message Text Normal [facility] Electrical Maintenance Engineer Authentication Interface Message Text Normal [facility] GLUCOSE, FINGERSTICK-IN OFFI CEon 12-08-2020 Glucose [Mass/Vol] 253 mg/dL High 80-116 [facility] Comment on above: Performed By: #### 8 2948 ####NURSING GLUCOSE [id number] [place], [address] Glucose [Mass/Vol] 193 mg/dL High 80-116 [facility] Comment on above: Result Comment: Foll ow Protocol Performed By: #### 8 2948 ####NURSING GLUCOSE [id number] [place], [address] Glucose [Mass/Vol] 252 mg/dL High 80-116 [facility] Comment on above: Performed By: #### 8 2948 ####NURSING GLUCOSE [id number] [place], [address] H AND Glenn 12-08-2020 Electrical Maintenance Engineer Authentication Interface Message Text Normal [facility] LACTIC ACIDon 12-08-2020 CR LACT 1.4 mmol/L Normal 0.5-2.[address] Comment on above: Performed By: #### L ACT, CR ICA ####[facility] PATH[facility]Y [id number] [place] [address], MAGNESIUMon 12-08-2020 Magnesium [Mass/Vol] 2.0 mg/dL Normal 1.6-2.[address] [facility] Comment on above: Performed By: #### JUSTINA Sales PHOS ####[facility] PATH[facility] [id number] [place], PARTIAL THROMBOPLASTIN TIMEo n 12-08-2020 aPTT Coag (Bld) [Time] 26 s Normal 25-37 [facility] Comment on above: Performed By: #### P T, APTT ####[facility] PATH[facility]Y [id number] [place], PHOSPHORUSon 12-08-2020 Phosphate [Mass/Vol] 3.7 mg/dL Normal 2.5-4.8 [facility] Comment on above: Performed By: #### JUSTINA Sales PHOS ####[facility] [id number] [place], PROTHROMBIN TIME AND INRon 0 12-08-2020 INR Coag (PPP) [Relative time] 1.30 {INR} High 0.90-1.10 [facility] Comment on above: Performed By: #### P T, APTT ####[facility] [id number] [place], PT Coag (PPP) [Time] 14.7 s High 9.7-12.9 [facility] Comment on above: Performed By: #### P T, APTT ####[facility] PATH[facility]Y [id number] [place], [place], Procedureson 12-08-2020 Electrical Maintenance Engineer Authentication Interface Message Text Normal [facility] Progress Noteson 12-08-2020 Electrical Maintenance Engineer Authentication Interface Message Text Normal [facility] Electrical Maintenance Engineer Authentication Interface Message Text Normal [facility] Electrical Maintenance Engineer Authentication Interface Message Text Normal [facility] Electrical Maintenance Engineer Authentication Interface Message Text 0200- [facility] 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 Normal [facility] US GUIDED PLEURA CATH INSERT on 12-08-2020 US GUIDED PLEURA CATH INSERT Normal [facility] XR CHEST AP OR PA 1 VIEWon 0 12-08-2020 XR CHEST AP OR PA 1 VIEW Normal [facility] XR CHEST AP OR PA 1 VIEW Normal [facility] XR CHEST AP OR PA 1 VIEW Normal [facility] Discharge Summaryon 03-29-20 Discharge Summary MR#: [id number] [facility] Pt. 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 The court interpreter indicated that thepatient is fixated on his job at [employer]. He goes back to [facility] discussing discharge planning. The prognosis and discharge plan werediscussed with the brother and close [facility] The [facility] was [facility] to [facility] facility.DISCHARGE MEDICATIONS: Following home medications were continued:Carbamazepine [...] stable condition. The patient was dischargedto a fpc facility. Instructions to primary care physician.Please follow up within 1 week of discharge. Please review the patient'sdiabetic medication regimen and please follow with the patient's seizuredisorder and oral anti-seizure medication regimen.Electronically Signed by:Pop Dukes M.D. 04/11/2017 09:07 A Pop Dukes M.D...Date Dict: 03/28/2017/07:39 P/Symone Colunga Trans: 03/29/2017 03:44 A/Dennis_JN:[id number]: Gasper Thurman D.O. [address] [place] [id number] Normal [facility] BASIC METABOLIC PANELon 10-0 Calcium 8.7 mg/dL Normal 8.6-10.3 [facility] Comment on above: Order Comment: Other , right weakness left gaze pref Performed By: #### 1 69, [id number] ####[facility] [place] [address], [facility] Chloride 103 mmol/L Normal 98-107 [facility] Comment on above: Order Comment: Other , right weakness left gaze pref Performed By: #### 1 69, 06906 ####[facility] [place] [address], [facility] CO2 27 mmol/L Normal 21-31 [facility] Comment on above: Order Comment: Other , right weakness left gaze pref Performed By: #### 1 69, 16161 ####[facility] [place] [address], [place] Creatinine 0.97 mg/dL Normal 0.70-1.30 [facility] Comment on above: Order Comment: Other , right weakness left gaze pref Performed By: #### 1 69, 12569 ####[facility] [place] [address], [place] eGFR (black) mL/min/{1.73_m2} Normal >60 [facility] Comment on above: Order Comment: Other , right weakness left gaze pref Performed By: #### 1 69, 47133 ####[facility] [place] [address], [place] eGFR (non-black) mL/min/{1.73_m2} Normal >60 Th e [facility] Comment on above: Order Comment: Other , right weakness left gaze pref Performed By: #### 1 69, 42167 ####[facility] Glucose mass conc 161 mg/dL High 70-100 [facility] Comment on above: Order Comment: Other , right weakness left gaze pref Performed By: #### 1 69, 55826 ####[facility] Potassium molar conc 3.8 mmol/L Normal 3.5-5.1 [facility] Comment on above: Order Comment: Other , right weakness left gaze pref Performed By: #### 1 69, 89147 ####[facility] Sodium 139 mmol/L Normal 136-145 [facility] Comment on above: Order Comment: Other , right weakness left gaze pref Performed By: #### 1 69, 34564 ####[facility] Urea nitrogen 27 mg/dL High 7-25 [facility] Comment on above: Order Comment: Other , right weakness left gaze pref Performed By: #### 1 69, 52947 ####[facility] CBC COMPLETE BLOOD COUNTon 1 - Erythrocyte distribution width Auto Ratio (RBC) 13.4 % Normal 11.5-16.9 [facility] Comment on above: Order Comment: Other , right weakness left gaze pref Performed By: #### 5 0608 ####[facility] Erythrocytes (RBC) 4.43 mill/mm3 Normal 4.30-5.90 [facility] Comment on above: Order Comment: Other , right weakness left gaze pref Performed By: #### 5 0608 ####[facility] Hematocrit (HCT) 39.9 % Normal 39.0-55.0 [facility] Comment on above: Order Comment: Other , right weakness left gaze pref Performed By: #### 5 0608 ####[facility] Hemoglobin mass conc (Bld) 13.1 g/dL Low 13.9-16.3 [facility] Comment on above: Order Comment: Other , right weakness left gaze pref Performed By: #### 5 0608 ####[facility] MCH 29.5 pg Normal 24.0-32.0 [facility] Comment on above: Order Comment: Other , right weakness left gaze pref Performed By: #### 5 0608 ####[facility]3000 [facility] MCHC mass conc (RBC) 32.7 g/dL Normal 32.0-36.0 [facility] Comment on above: Order Comment: Other , right weakness left gaze pref Performed By: #### 5 0608 ####[facility]3000 [facility].[address] MCV 90.1 fL Normal 80.0-100.0 [facility] Comment on above: Order Comment: Other , right weakness left gaze pref Performed By: #### 5 0608 ####[facility]3000 [facility] [address], [facility] PLAT CNT 204 Thou/mm3 Normal 100-400 [facility] Comment on above: Order Comment: Other , right weakness left gaze pref Performed By: #### 5 0608 ####[facility] WBC (Leukocytes) 5.1 Thou/mm3 Normal 4.0-10.0 [facility] Comment on above: Order Comment: Other , right weakness left gaze pref Performed By: #### 5 0608 ####[facility] MAGNESIUM BLOODon 03-28-2017 Magnesium 2.2 mg/dL Normal 1.9-2.7 [facility] Comment on above: Order Comment: Other , right weakness left gaze pref Performed By: #### 1 0070, 77010 ####[facility] POC GLUCOSE LABon 03-28-2017 Glucose mass conc 248 mg/dL High 70-100 [facility] Comment on above: Performed By: #### 8 5499 ####[facility] Glucose mass conc 250 mg/dL High 70-100 [facility] Comment on above: Performed By: #### 8 5499 ####[facility] Glucose mass conc 155 mg/dL High 70-100 [facility] Comment on above: Performed By: #### 8 5499 ####[facility] Glucose mass conc 160 mg/dL High 70-100 [facility] Comment on above: Performed By: #### 8 5499 ####[facility] [place] [address], [facility] BASIC METABOLIC PANELon Calcium 9.0 mg/dL Normal 8.6-10.3 [facility] Comment on above: Order Comment: Other , right weakness left gaze pref Performed By: #### 0 0071, 02504 ####[facility] [place] [address], [facility] Chloride 101 mmol/L Normal 98-107 [facility] Comment on above: Order Comment: Other , right weakness left gaze pref Performed By: #### 0 0071, 75918 ####[facility] [place] [address], [facility] CO2 26 mmol/L Normal 21-31 [facility] Comment on above: Order Comment: Other , right weakness left gaze pref Performed By: #### 0 0071, 17080 ####[facility] Creatinine 0.93 mg/dL Normal 0.70-1.30 [facility] Comment on above: Order Comment: Other , right weakness left gaze pref Performed By: #### 0 0071, 75100 ####[facility] eGFR (black) mL/min/{1.73_m2} Normal >60 [facility] Comment on above: Order Comment: Other , right weakness left gaze pref Performed By: #### 0 0071, 56125 ####[facility] eGFR (non-black) mL/min/{1.73_m2} Normal >60 Th e [facility] Comment on above: Order Comment: Other , right weakness left gaze pref Performed By: #### 0 0071, 07611 ####[facility] [place] [address], [facility] [facility] Glucose mass conc 178 mg/dL High 70-100 [facility] Comment on above: Order Comment: Other , right weakness left gaze pref Performed By: #### 0 0071, [id number] ####[facility] [place] [address], [facility] Potassium molar conc 3.8 mmol/L Normal 3.5-5.1 [facility] Comment on above: Order Comment: Other , right weakness left gaze pref Performed By: #### 0 0071, 52297 ####[facility] Sodium 138 mmol/L Normal 136-145 [facility] Comment on above: Order Comment: Other , right weakness left gaze pref Performed By: #### 0 0071, 29247 ####[facility] Urea nitrogen 27 mg/dL High 7-25 [facility] Comment on above: Order Comment: Other , right weakness left gaze pref Performed By: #### 0 0071, 28311 ####[facility]3000 [facility].[address] CBC COMPLETE BLOOD COUNTon 1 Erythrocyte distribution width Auto Ratio (RBC) 12.9 % Normal 11.5-16.9 [facility] Comment on above: Order Comment: Other , right weakness left gaze pref Performed By: #### 5 0608 ####[facility]3000 [facility].[address] Erythrocytes (RBC) 4.45 mill/mm3 Normal 4.30-5.90 [facility] Comment on above: Order Comment: Other , right weakness left gaze pref Performed By: #### 5 0608 ####[facility]3000 [facility].[address] Hematocrit (HCT) 40.0 % Normal 39.0-55.0 [facility] Comment on above: Order Comment: Other , right weakness left gaze pref Performed By: #### 5 0608 ####[facility]3000 [facility].[address] Hemoglobin mass conc (Bld) 13.3 g/dL Low 13.9-16.3 [facility] Comment on above: Order Comment: Other , right weakness left gaze pref Performed By: #### 5 0608 ####[facility] MCH 29.9 pg Normal 24.0-32.0 [facility] Comment on above: Order Comment: Other , right weakness left gaze pref Performed By: #### 5 0608 ####[facility].[address] MCHC mass conc (RBC) 33.3 g/dL Normal 32.0-36.0 [facility] Comment on above: Order Comment: Other , right weakness left gaze pref Performed By: #### 5 0608 ####[facility]3000 [facility].[address] MCV 89.8 fL Normal 80.0-100.0 [facility] Comment on above: Order Comment: Other , right weakness left gaze pref Performed By: #### 5 0608 ####[facility] PLAT CNT 224 Thou/mm3 Normal 100-400 [facility] Comment on above: Order Comment: Other , right weakness left gaze pref Performed By: #### 5 0608 ####[facility]3000 [facility].[address] WBC (Leukocytes) 7.0 Thou/mm3 Normal 4.0-10.0 [facility] Comment on above: Order Comment: Other , right weakness left gaze pref Performed By: #### 5 0608 ####[facility].[address] MAGNESIUM BLOODon 03-27-2017 Magnesium 2.0 mg/dL Normal 1.9-2.7 [facility] Comment on above: Order Comment: Other , right weakness left gaze pref Performed By: #### 0 0071, 31271 ####[facility] POC GLUCOSE LABon 03-27-2017 Glucose mass conc 153 mg/dL High 70-100 [facility] Comment on above: Performed By: #### 8 5499 ####[facility] [place] [address], [facility] Glucose mass conc 203 mg/dL High 70-100 [facility] Comment on above: Performed By: #### 8 5499 ####[facility] [facility] [place] [address], [facility] Glucose mass conc 145 mg/dL High 70-100 [facility] Comment on above: Performed By: #### 8 5499 ####[facility] [facility] [address], [facility] Glucose mass conc 175 mg/dL High 70-100 [facility] Comment on above: Performed By: #### 8 5499 ####[facility] [facility] [address], [facility] BASIC METABOLIC PANELon 10-0 Calcium 9.1 mg/dL Normal 8.6-10.3 [facility] Comment on above: Order Comment: Other , right weakness left gaze pref Performed By: #### 0 0071 ####[facility] [place] [address], [facility] Chloride 101 mmol/L Normal 98-107 [facility] Comment on above: Order Comment: Other , right weakness left gaze pref Performed By: #### 0 0071 ####[facility] [facility] [address], [facility] CO2 25 mmol/L Normal 21-31 [facility] Comment on above: Order Comment: Other , right weakness left gaze pref Performed By: #### 0 0071 ####[facility] [facility] [place] [address], [facility] Creatinine 0.86 mg/dL Normal 0.70-1.30 [facility] Comment on above: Order Comment: Other , right weakness left gaze pref Performed By: #### 0 0071 ####[facility] eGFR (black) mL/min/{1.73_m2} Normal >60 [facility] Comment on above: Order Comment: Other , right weakness left gaze pref Performed By: #### 0 0071 ####[facility] [facility] [place] [address], [facility] eGFR (non-black) mL/min/{1.73_m2} Normal >60 [facility] Comment on above: Order Comment: Other , right weakness left gaze pref Performed By: #### 0 0071 ####[facility]3000 [facility].[address] Glucose mass conc 134 mg/dL High 70-100 [facility] Comment on above: Order Comment: Other , right weakness left gaze pref Performed By: #### 0 0071 ####[facility] [facility] [address], [facility] Potassium molar conc 3.8 mmol/L Normal 3.5-5.1 [facility] Comment on above: Order Comment: Other , right weakness left gaze pref Performed By: #### 0 0071 ####[facility] [facility] [place] [address], [facility] Sodium 139 mmol/L Normal 136-145 [facility] Comment on above: Order Comment: Other , right weakness left gaze pref Performed By: #### 0 0071 ####[facility] [facility] [address], [facility] Urea nitrogen 26 mg/dL High 7-25 [facility] Comment on above: Order Comment: Other , right weakness left gaze pref Performed By: #### 0 0071 ####[facility] [place] [address], [facility] CBC W/DIFFon 03-26-2017 Basophils Auto #/vol (Bld) 0.1 % Normal 0.0-2.0 [facility] Comment on above: Order Comment: Other , right weakness left gaze pref Performed By: #### 5 0103 ####[facility] [facility] [address], [facility] Eosinophils/100 leukocytes 1.0 % Normal 0.0-5.0 [facility] Comment on above: Order Comment: Other , right weakness left gaze pref Performed By: #### 5 0103 ####[facility].[address] Erythrocyte distribution width Auto Ratio (RBC) 13.2 % Normal 11.5-16.9 [facility] Comment on above: Order Comment: Other , right weakness left gaze pref Performed By: #### 5 3 ####[facility] Erythrocytes (RBC) 4.70 mill/mm3 Normal 4.30-5.90 [facility] Comment on above: Order Comment: Other , right weakness left gaze pref Performed By: #### 5 3 ####[facility]3000 [facility].[address] Hematocrit (HCT) 42.4 % Normal 39.0-55.0 [facility] Comment on above: Order Comment: Other , right weakness left gaze pref Performed By: #### 5 3 ####[facility]3000 [facility].[address] Hemoglobin mass conc (Bld) 14.1 g/dL Normal 13.9-16.3 [facility] Comment on above: Order Comment: Other , right weakness left gaze pref Performed By: #### 5 3 ####[facility] [facility] [address], [facility] Lymphocytes/100 leukocytes 11.7 % Low 20.0-40.0 [facility] Comment on above: Order Comment: Other , right weakness left gaze pref Performed By: #### 5 0103 ####[facility] [place] [address], [facility] MCH 30.0 pg Normal 24.0-32.0 [facility] Comment on above: Order Comment: Other , right weakness left gaze pref Performed By: #### 5 3 ####[facility] MCHC mass conc (RBC) 33.3 g/dL Normal 32.0-36.0 [facility] Comment on above: Order Comment: Other , right weakness left gaze pref Performed By: #### 5 3 ####[facility] MCV 90.1 fL Normal 80.0-100.0 [facility] Comment on above: Order Comment: Other , right weakness left gaze pref Performed By: #### 5 3 ####[facility] [place] [address], [facility] METHOD Normal RBC Morphology Normal [facility] Comment on above: Order Comment: Other , right weakness left gaze pref Performed By: #### 5 0103 ####[facility] [place] [address], [facility] MONOS 12.4 % High 2-8 [facility] Comment on above: Order Comment: Other , right weakness left gaze pref Performed By: #### 5 3 ####[facility] [place] [address], [facility] Neutrophils/100 leukocytes 74.8 % High 50-70 [facility] Comment on above: Order Comment: Other , right weakness left gaze pref Performed By: #### 5 3 ####[facility] [place] [address], [facility] PLAT CNT 202 Thou/mm3 Normal 100-400 [facility] Comment on above: Order Comment: Other , right weakness left gaze pref Performed By: #### 5 0103 ####[facility]3000 [facility].[address] WBC (Leukocytes) 8.6 Thou/mm3 Normal 4.0-10.0 [facility] Comment on above: Order Comment: Other , right weakness left gaze pref Performed By: #### 5 3 ####[facility]3000 [facility].[address] POC GLUCOSE LABon 03-26-2017 Glucose mass conc 184 mg/dL High 70-100 [facility] Comment on above: Performed By: #### 8 5499 ####[facility] Glucose mass conc 211 mg/dL High 70-100 [facility] Comment on above: Performed By: #### 8 5499 ####[facility] Glucose mass conc 126 mg/dL High 70-100 [facility] Comment on above: Performed By: #### 8 5499 ####[facility] Glucose mass conc 161 mg/dL High 70-100 [facility] Comment on above: Performed By: #### 8 5499 ####[facility]3000 [facility].[address] CBC W/DIFFon 03-25-2017 Basophils Auto #/vol (Bld) 0.2 % Normal 0.0-2.0 [facility] Comment on above: Order Comment: Other , right weakness left gaze pref Performed By: #### 5 3 ####[facility] Eosinophils/100 leukocytes 0.5 % Normal 0.0-5.0 [facility] Comment on above: Order Comment: Other , right weakness left gaze pref Performed By: #### 5 0103 ####[facility] Erythrocyte distribution width Auto Ratio (RBC) 13.0 % Normal 11.5-16.9 [facility] Comment on above: Order Comment: Other , right weakness left gaze pref Performed By: #### 5 3 ####[facility] [place] [address], [facility] Erythrocytes (RBC) 4.24 mill/mm3 Low 4.30-5.90 [facility] Comment on above: Order Comment: Other , right weakness left gaze pref Performed By: #### 5 3 ####[facility] Hematocrit (HCT) 38.1 % Low 39.0-55.0 [facility] Comment on above: Order Comment: Other , right weakness left gaze pref Performed By: #### 5 3 ####[facility] [place] [address], [facility] Hemoglobin mass conc (Bld) 12.9 g/dL Low 13.9-16.3 [facility] Comment on above: Order Comment: Other , right weakness left gaze pref Performed By: #### 5 3 ####[facility] [place] [address], [facility] Lymphocytes/100 leukocytes 10.9 % Low 20.0-40.0 [facility] Comment on above: Order Comment: Other , right weakness left gaze pref Performed By: #### 5 3 ####[facility] [place] [address], [facility] MCH 30.3 pg Normal 24.0-32.0 [facility] Comment on above: Order Comment: Other , right weakness left gaze pref Performed By: #### 5 3 ####[facility] MCHC mass conc (RBC) 33.7 g/dL Normal 32.0-36.0 [facility] Comment on above: Order Comment: Other , right weakness left gaze pref Performed By: #### 5 0103 ####[facility] [place] [address], [facility] MCV 89.9 fL Normal 80.0-100.0 [facility] Comment on above: Order Comment: Other , right weakness left gaze pref Performed By: #### 5 0103 ####[facility] [place] [address], [facility] METHOD Normal RBC Morphology Normal [facility] Comment on above: Order Comment: Other , right weakness left gaze pref Performed By: #### 5 0103 ####[facility] [place] [address], [facility] MONOS 13.3 % High 2-8 [facility] Comment on above: Order Comment: Other , right weakness left gaze pref Performed By: #### 5 0103 ####[facility] [place] [address], [facility] Neutrophils/100 leukocytes 75.1 % High 50-70 [facility] Comment on above: Order Comment: Other , right weakness left gaze pref Performed By: #### 5 0103 ####[facility] [place] [address], [facility] PLAT CNT 154 Thou/mm3 Normal 100-400 [facility] Comment on above: Order Comment: Other , right weakness left gaze pref Performed By: #### 5 0103 ####[facility] [place] [address], [facility] WBC (Leukocytes) 10.8 Thou/mm3 High 4.0-10.0 [facility] Comment on above: Order Comment: Other , right weakness left gaze pref Performed By: #### 5 0103 ####[facility] [place] [address], [facility] COMP METABOLIC PANELon 03-25 Alanine aminotransferase (ALT) 40 U/L Normal 7-52 [facility] Comment on above: Order Comment: Other , right weakness left gaze pref Performed By: #### 4 1000, 00500, 72264 ####[facility] [place] [address], [facility] Albumin 3.1 g/dL Low 3.5-5.7 [facility] Comment on above: Order Comment: Other , right weakness left gaze pref Performed By: #### 4 1000, 76791, 10397 ####[facility] [place] [address], [facility] ALKALINE PHOSPH 40 IU/L Normal 34-104 [facility] Comment on above: Order Comment: Other , right weakness left gaze pref Performed By: #### 4 1000, 25381, 72004 ####[facility] [place] [address], [facility] Aspartate aminotransferase (AST) 38 U/L Normal 13-39 [facility] Comment on above: Order Comment: Other , right weakness left gaze pref Performed By: #### 4 1000, 13027, 61960 ####[facility] [place] [address], [facility] Bilirubin (total) 0.7 mg/dL Normal 0.3-1.0 [facility] Comment on above: Order Comment: Other , right weakness left gaze pref Performed By: #### 4 1000, 17915, 85332 ####[facility] [place] [address], [facility] Calcium 8.7 mg/dL Normal 8.6-10.3 [facility] Comment on above: Order Comment: Other , right weakness left gaze pref Performed By: #### 4 1000, 28984, 09711 ####[facility] [id number], [facility] Chloride 102 mmol/L Normal 98-107 [facility] Comment on above: Order Comment: Other , right weakness left gaze pref Performed By: #### 4 1000, 85754, 99444 ####[facility] CO2 27 mmol/L Normal 21-31 [facility] Comment on above: Order Comment: Other , right weakness left gaze pref Performed By: #### 4 1000, , 80208 ####[facility] Creatinine 0.85 mg/dL Normal 0.70-1.30 [facility] Comment on above: Order Comment: Other , right weakness left gaze pref Performed By: #### 4 1000, , 39850 ####[facility] eGFR (black) mL/min/{1.73_m2} Normal >60 [facility] Comment on above: Order Comment: Other , right weakness left gaze pref Performed By: #### 4 1000, , 91327 ####[facility] eGFR (non-black) mL/min/{1.73_m2} Normal >60 [facility] Comment on above: Order Comment: Other , right weakness left gaze pref Performed By: #### 4 1000, , 00594 ####[facility] Glucose mass conc 134 mg/dL High 70-100 [facility] Comment on above: Order Comment: Other , right weakness left gaze pref Performed By: #### 4 1000, 02791, 11748 ####[facility] Potassium molar conc 4.0 mmol/L Normal 3.5-5.1 [facility] Comment on above: Order Comment: Other , right weakness left gaze pref Performed By: #### 4 1000, 95403, 13572 ####[facility] [place] [address], [facility] Protein 6.0 g/dL Normal 6.0-8.3 [facility] Comment on above: Order Comment: Other , right weakness left gaze pref Performed By: #### 4 1000, 48043, 00743 ####[facility] [place] [address], [facility] Sodium 138 mmol/L Normal 136-145 [facility] Comment on above: Order Comment: Other , right weakness left gaze pref Performed By: #### 4 1000, 46345, 48362 ####[facility] Urea nitrogen 21 mg/dL Normal 7-25 [facility] Comment on above: Order Comment: Other , right weakness left gaze pref Performed By: #### 4 1000, 62171, 89714 ####[facility] [place] [address], [facility] KEPPRA ILon 03-25-2017 IL Normal [facility] Comment on above: Order Comment: Other , right weakness left gaze pref KEPPRA 19 ug/mL Normal [facility] Comment on above: Order Comment: Other , right weakness left gaze pref Result Comment: A re ference range for Keppra has not been well established. The proposed therapeutic range for seizure control is 6-46 ug/mL. Pharmacokinetics of Keppra are affected by renal function. The relationship between serum concentrations and toxicity is not known. MAGNESIUM BLOODon 03-25-2017 Magnesium 2.0 mg/dL Normal 1.9-2.7 [facility] Comment on above: Order Comment: Other , right weakness left gaze pref Performed By: #### 4 1000, 67952, 48140 ####[facility] [place] [address], [facility] PHOSPHORUS BLOODon 10-03-201 7 Phosphate 2.7 mg/dL Normal 2.5-5.0 [facility] Comment on above: Order Comment: Other , right weakness left gaze pref Performed By: #### 4 1000, 06735, 79417 ####[facility] [place] [address], [place] POC GLUCOSE LABon 03-25-2017 Glucose mass conc 147 mg/dL High 70-100 [facility] Comment on above: Performed By: #### 8 5499 ####[facility] [place] [address], [place] Glucose mass conc 132 mg/dL High 70-100 [facility] Comment on above: Performed By: #### 8 5499 ####[facility] [place] [address], [place] ARTERIAL BLOOD GAS WITH ICAo n 03-24-2017 BASE EXCESS 3 mmol/L High -2-2 [facility] Comment on above: Performed By: #### 8 4511 ####[facility] [place] [address], [place] Bicarbonate (HCO3) 26 mmol/L Normal 23-27 [facility] Comment on above: Performed By: #### 8 4511 ####[facility] [place] [address], [place] CO2 37 mmHg Normal 35-45 [facility] Comment on above: Performed By: #### 8 4511 ####[facility] [place] [address], [place] [employer] MV Normal [facility] Comment on above: Performed By: #### 8 4511 ####[facility] [place] [address], [place] FIO2 40 % Normal 21-100 [facility] Comment on above: Performed By: #### 8 4511 ####[facility] [place] [address], [facility] IONIZED CALCIUM 1.16 mmol/L Normal 1.13-1.32 [facility] Comment on above: Performed By: #### 8 4511 ####[facility] [place] [address], [facility] MIN VOLUME 8.5 Normal [facility] Comment on above: Performed By: #### 8 4511 ####[facility] [place] [address], [facility] MODALITY AC Normal [facility] Comment on above: Performed By: #### 8 4511 ####[facility] O2 saturation 94.6 % Normal 94.0-97.0 [facility] Comment on above: Performed By: #### 8 4511 ####[facility], [place] [id number] [place] [address] Oxygen in arterial blood 96 mm[Hg] Normal 75-100 [facility] Comment on above: Performed By: #### 8 4511 ####[facility] [place] [address], [facility] PEEP 5.0 CMH20 Normal [facility] Comment on above: Performed By: #### 8 4511 ####[facility] [place] [address], [facility] PF RATIO 240 mmHg Normal 50-400 [facility] Comment on above: Performed By: #### 8 4511 ####[facility] [place] [address], [facility] pH of blood 7.46 [pH] High 7.35-7.45 The [facility] Comment on above: Performed By: #### 8 4511 ####[facility] [place] [address], [facility] Respiratory rate 14 /min Normal [facility] Comment on above: Performed By: #### 8 4511 ####[facility] TIDAL VOLUME (VT) CC 500 Normal [facility] Comment on above: Performed By: #### 8 4511 ####[facility] [place] [address], [facility] CBC W/DIFFon 03-24-2017 Basophils Auto #/vol (Bld) 0.1 % Normal 0.0-2.0 [facility] Comment on above: Order Comment: Other , right weakness left gaze pref Performed By: #### 5 0103 ####[facility] Eosinophils/100 leukocytes 1.0 % Normal 0.0-5.0 [facility] Comment on above: Order Comment: Other , right weakness left gaze pref Performed By: #### 5 0103 ####[facility] Erythrocyte distribution width Auto Ratio (RBC) 13.5 % Normal 11.5-16.9 [facility] Comment on above: Order Comment: Other , right weakness left gaze pref Performed By: #### 5 0103 ####[facility] Erythrocytes (RBC) 4.30 mill/mm3 Normal 4.30-5.90 [facility] Comment on above: Order Comment: Other , right weakness left gaze pref Performed By: #### 5 0103 ####[facility] Hematocrit (HCT) 39.0 % Normal 39.0-55.0 [facility] Comment on above: Order Comment: Other , right weakness left gaze pref Performed By: #### 5 0103 ####[facility] Hemoglobin mass conc (Bld) 12.8 g/dL Low 13.9-16.3 [facility] Comment on above: Order Comment: Other , right weakness left gaze pref Performed By: #### 5 0103 ####[facility] [place] [address], [facility] Lymphocytes/100 leukocytes 11.1 % Low 20.0-40.0 [facility] Comment on above: Order Comment: Other , right weakness left gaze pref Performed By: #### 5 0103 ####[facility]3000 [facility] MCH 29.9 pg Normal 24.0-32.0 [facility] Comment on above: Order Comment: Other , right weakness left gaze pref Performed By: #### 5 3 ####[facility] MCHC mass conc (RBC) 32.9 g/dL Normal 32.0-36.0 [facility] Comment on above: Order Comment: Other , right weakness left gaze pref Performed By: #### 5 0103 ####[facility]3000 [facility] MCV 90.7 fL Normal 80.0-100.0 [facility] Comment on above: Order Comment: Other , right weakness left gaze pref Performed By: #### 5 0103 ####[facility] [place] [address], [facility] METHOD Normal RBC Morphology Normal [facility] Comment on above: Order Comment: Other , right weakness left gaze pref Performed By: #### 5 3 ####[facility] [place] [address], [facility] MONOS 11.7 % High 2-8 [facility] Comment on above: Order Comment: Other , right weakness left gaze pref Performed By: #### 5 3 ####[facility] [place] [address], [facility] Neutrophils/100 leukocytes 76.1 % High 50-70 [facility] Comment on above: Order Comment: Other , right weakness left gaze pref Performed By: #### 5 0103 ####[facility] [place] [address], [facility] PLAT CNT 133 Thou/mm3 Normal 100-400 [facility] Comment on above: Order Comment: Other , right weakness left gaze pref Performed By: #### 5 0103 ####[facility] [place] [address], [facility] WBC (Leukocytes) 9.2 Thou/mm3 Normal 4.0-10.0 [facility] Comment on above: Order Comment: Other , right weakness left gaze pref Performed By: #### 5 0103 ####[facility], [place] [id number] [place] [address] COMP METABOLIC PANELon 03-24 Alanine aminotransferase (ALT) 48 U/L Normal 7-52 [facility] Comment on above: Order Comment: Other , right weakness left gaze pref Performed By: #### 0 0121, 63131, 36880 ####[facility] [place] [address], [facility] Albumin 3.2 g/dL Low 3.5-5.7 [facility] Comment on above: Order Comment: Other , right weakness left gaze pref Performed By: #### 0 0121, 90400, 35317 ####[facility] [place] [address], [facility] ALKALINE PHOSPH 40 IU/L Normal 34-104 [facility] Comment on above: Order Comment: Other , right weakness left gaze pref Performed By: #### 0 0121, 33291, 12762 ####[facility] Aspartate aminotransferase (AST) 33 U/L Normal 13-39 [facility] Comment on above: Order Comment: Other , right weakness left gaze pref Performed By: #### 0 0121, 19123, 48219 ####[facility] [place] [address], [facility] Bilirubin (total) 0.6 mg/dL Normal 0.3-1.0 [facility] Comment on above: Order Comment: Other , right weakness left gaze pref Performed By: #### 0 0121, 17351, 43183 ####[facility] [place] [address], [facility] Calcium 8.7 mg/dL Normal 8.6-10.3 [facility] Comment on above: Order Comment: Other , right weakness left gaze pref Performed By: #### 0 0121, 95674, 99779 ####[facility] [place] [address], [facility] Chloride 104 mmol/L Normal 98-107 [facility] Comment on above: Order Comment: Other , right weakness left gaze pref Performed By: #### 0 0121, 61180, 45437 ####[facility] [place] [address], [facility] CO2 26 mmol/L Normal 21-31 [facility] Comment on above: Order Comment: Other , right weakness left gaze pref Performed By: #### 0 0121, 65781, 01555 ####[facility] [place] [address], [facility] Creatinine 0.80 mg/dL Normal 0.70-1.30 [facility] Comment on above: Order Comment: Other , right weakness left gaze pref Performed By: #### 0 0121, 00441, 36821 ####[facility] [place] [address], [facility] eGFR (black) mL/min/{1.73_m2} Normal >60 [facility] Comment on above: Order Comment: Other , right weakness left gaze pref Performed By: #### 0 0121, 75203, 16562 ####[facility]3000 [facility] eGFR (non-black) mL/min/{1.73_m2} Normal >60 Th e [facility] Comment on above: Order Comment: Other , right weakness left gaze pref Performed By: #### 0 0121, 51119, 55388 ####[facility] [place] [address], [facility] Glucose mass conc 189 mg/dL High 70-100 [facility] Comment on above: Order Comment: Other , right weakness left gaze pref Performed By: #### 0 0121, 35894, 64873 ####[facility] [facility] [place] [address], [facility] Potassium molar conc 4.5 mmol/L Normal 3.5-5.1 [facility] Comment on above: Order Comment: Other , right weakness left gaze pref Performed By: #### 0 0121, 10320, 49704 ####[facility] [facility] [place] [address], [facility] Protein 6.1 g/dL Normal 6.0-8.3 [facility] Comment on above: Order Comment: Other , right weakness left gaze pref Performed By: #### 0 0121, 01191, 43131 ####[facility] [facility] [place] [address], [facility] Sodium 138 mmol/L Normal 136-145 [facility] Comment on above: Order Comment: Other , right weakness left gaze pref Performed By: #### 0 0121, 11613, 90475 ####[facility] [place] [address], [facility] Urea nitrogen 21 mg/dL Normal 7-25 [facility] Comment on above: Order Comment: Other , right weakness left gaze pref Performed By: #### 0 0121, 21527, 97750 ####[facility] [place] [address], [facility] MAGNESIUM BLOODon 03-24-2017 Magnesium 2.1 mg/dL Normal 1.9-2.7 [facility] Comment on above: Order Comment: Other , right weakness left gaze pref Performed By: #### 0 0121, 27481, 18174 ####[facility] [place] [address], [facility] PHOSPHORUS BLOODon 7 Phosphate 3.0 mg/dL Normal 2.5-5.0 [facility] Comment on above: Order Comment: Other , right weakness left gaze pref Performed By: #### 0 0121, 05672, 06552 ####[facility] [place] [address], [facility] POC GLUCOSE LABon 03-24-2017 Glucose mass conc 153 mg/dL High 70-100 [facility] Comment on above: Performed By: #### 8 5499 ####[facility] [place] [address], [facility] Glucose mass conc 191 mg/dL High 70-100 [facility] Comment on above: Performed By: #### 8 5499 ####[facility] [place] [address], [facility] ARTERIAL BLOOD GAS WITH ICAo n 03-23-2017 BASE EXCESS 1 mmol/L Normal -2-2 [facility] Comment on above: Performed By: #### 8 4511 ####[facility] [place] [address], [facility] Bicarbonate (HCO3) 26 mmol/L Normal 23-27 [facility] Comment on above: Performed By: #### 8 4511 ####[facility] [place] [address], [facility] CO2 40 mmHg Normal 35-45 [facility] Comment on above: Performed By: #### 8 4511 ####[facility] [place] [address], [facility] [employer] MV Normal [facility] Comment on above: Performed By: #### 8 4511 ####[facility] [place] [address], [place] FIO2 40 % Normal 21-100 [facility] Comment on above: Performed By: #### 8 4511 ####[facility] [place] [address], [facility] IONIZED CALCIUM 1.25 mmol/L Normal 1.13-1.32 [facility] Comment on above: Performed By: #### 8 4511 ####[facility] [place] [address], [place] MIN VOLUME 8.0 Normal [facility] Comment on above: Performed By: #### 8 4511 ####[facility] [place] [address], [place] MODALITY AC Normal [facility] Comment on above: Performed By: #### 8 4511 ####[facility] [place] [address], [place] O2 saturation 95.3 % Normal 94.0-97.0 [facility] Comment on above: Performed By: #### 8 4511 ####[facility] [place] [address], [place] Oxygen in arterial blood 96 mm[Hg] Normal 75-100 [facility] Comment on above: Performed By: #### 8 4511 ####[facility] [place] [address], [place] PEEP 5.0 CMH20 Normal [facility] Comment on above: Performed By: #### 8 4511 ####[facility] pH of blood 7.42 [pH] Normal 7.35-7.45 [facility] Comment on above: Performed By: #### 8 4511 ####[facility] Respiratory rate 14 /min Normal [facility] Comment on above: Performed By: #### 8 4511 ####[facility] TIDAL VOLUME (VT) CC 500 Normal [facility] Comment on above: Performed By: #### 8 4511 ####[facility] BASIC METABOLIC PANELon 10-0 Calcium 8.5 mg/dL Low 8.6-10.3 [facility] Comment on above: Order Comment: Other , right weakness left gaze pref Performed By: #### 0 0071, 50922, 45181 ####[facility]3000 [facility] Chloride 107 mmol/L Normal 98-107 [facility] Comment on above: Order Comment: Other , right weakness left gaze pref Performed By: #### 0 0071, 09027, 80839 ####[facility] CO2 25 mmol/L Normal 21-31 [facility] Comment on above: Order Comment: Other , right weakness left gaze pref Performed By: #### 0 0071, 71333, 57810 ####[facility] Creatinine 0.79 mg/dL Normal 0.70-1.30 [facility] Comment on above: Order Comment: Other , right weakness left gaze pref Performed By: #### 0 0071, 43346, 35282 ####[facility] eGFR (black) mL/min/{1.73_m2} Normal >60 [facility] Comment on above: Order Comment: Other , right weakness left gaze pref Performed By: #### 0 0071, 64247, 28543 ####[facility], [place] [address] [place] [address] eGFR (non-black) mL/min/{1.73_m2} Normal >60 Th e [facility] Comment on above: Order Comment: Other , right weakness left gaze pref Performed By: #### 0 0071, 18178, 25552 ####[facility] Glucose mass conc 201 mg/dL High 70-100 [facility] Comment on above: Order Comment: Other , right weakness left gaze pref Performed By: #### 0 0071, 03956, 42217 ####[facility] Potassium molar conc 4.1 mmol/L Normal 3.5-5.1 [facility] Comment on above: Order Comment: Other , right weakness left gaze pref Performed By: #### 0 0071, 40083, 90401 ####[facility], [place] [address] [place] [address] Sodium 140 mmol/L Normal 136-145 [facility] Comment on above: Order Comment: Other , right weakness left gaze pref Performed By: #### 0 0071, 36498, 77877 ####[facility] [place] [address], [facility] Urea nitrogen 23 mg/dL Normal 7-25 [facility] Comment on above: Order Comment: Other , right weakness left gaze pref Performed By: #### 0 0071, 41660, 83267 ####[facility] [place] [address], [facility] CBC W/DIFFon 03-23-2017 Basophils Auto #/vol (Bld) 0.2 % Normal 0.0-2.0 [facility] Comment on above: Order Comment: Other , right weakness left gaze pref Performed By: #### 5 0103 ####[facility] [place] [address], [facility] Eosinophils/100 leukocytes 2.1 % Normal 0.0-5.0 [facility] Comment on above: Order Comment: Other , right weakness left gaze pref Performed By: #### 5 0103 ####[facility]3000 [facility].[address] Erythrocyte distribution width Auto Ratio (RBC) 13.8 % Normal 11.5-16.9 [facility] Comment on above: Order Comment: Other , right weakness left gaze pref Performed By: #### 5 3 ####[facility]3000 [facility].[address] Erythrocytes (RBC) 4.08 mill/mm3 Low 4.30-5.90 [facility] Comment on above: Order Comment: Other , right weakness left gaze pref Performed By: #### 5 3 ####[facility]3000 [facility].[address] Hematocrit (HCT) 37.1 % Low 39.0-55.0 [facility] Comment on above: Order Comment: Other , right weakness left gaze pref Performed By: #### 5 0103 ####[facility]3000 [facility] [place] [address], [facility] Hemoglobin mass conc (Bld) 12.3 g/dL Low 13.9-16.3 [facility] Comment on above: Order Comment: Other , right weakness left gaze pref Performed By: #### 5 3 ####[facility] [place] [address], [facility] Lymphocytes/100 leukocytes 16.1 % Low 20.0-40.0 [facility] Comment on above: Order Comment: Other , right weakness left gaze pref Performed By: #### 5 0103 ####[facility] [place] [address], [facility] MCH 30.2 pg Normal 24.0-32.0 [facility] Comment on above: Order Comment: Other , right weakness left gaze pref Performed By: #### 5 3 ####[facility] [place] [address], [facility] MCHC mass conc (RBC) 33.2 g/dL Normal 32.0-36.0 [facility] Comment on above: Order Comment: Other , right weakness left gaze pref Performed By: #### 5 3 ####[facility] [place] [address], [facility] MCV 90.8 fL Normal 80.0-100.0 [facility] Comment on above: Order Comment: Other , right weakness left gaze pref Performed By: #### 5 3 ####[facility] [place] [address], [facility] METHOD Normal RBC Morphology Normal [facility] Comment on above: Order Comment: Other , right weakness left gaze pref Performed By: #### 5 3 ####[facility] [place] [address], [facility] MONOS 11.9 % High 2-8 [facility] Comment on above: Order Comment: Other , right weakness left gaze pref Performed By: #### 5 3 ####[facility] [place] [address], [facility] Neutrophils/100 leukocytes 69.7 % Normal 50-70 [facility] Comment on above: Order Comment: Other , right weakness left gaze pref Performed By: #### 5 3 ####[facility] [place] [address], [facility] PLAT CNT 124 Thou/mm3 Normal 100-400 [facility] Comment on above: Order Comment: Other , right weakness left gaze pref Performed By: #### 5 0103 ####[facility] WBC (Leukocytes) 5.8 Thou/mm3 Normal 4.0-10.0 [facility] Comment on above: Order Comment: Other , right weakness left gaze pref Performed By: #### 5 0103 ####[facility]3000 [facility].[address] EEG Reporton 03-23-2017 [facility] [id number] Age: 61 Physician: Date: 03/23/2017 Lab#: Date of : 1955 Patient Type: [id number] [place], [place] [address] Board of the [place] [employer] Accredited LaboratoryDate of : [birth year]Medical record number: [id number] lab November: M-207-17 7Date of study: 03/23/2017Referring physician: Dr. Hoa Alvares WilliamHistory:This is a 61-year-old male with new onset seizure and fever. The study isto assist clinical diagnosis due to a concern of possible epilepticetiology.MEDICATION: Versed, KeppraTechnical Description:This is a continuous monitoring utilizing digital EEG, audio, and video [facility]. EEG electrodes was placed according to [...] monitoring utilizing digital EEG, audio, and video [facility]. This record started at 06:30:27 hours [...] Signed by:Damián Olvera M.D. 03/23/2017 02:41 P ___Damián Olvera M.D.Date Dict: 03/23/2017/02:40 P/Damián Olvera M.D.Date Trans: 03/23/2017 02:40 P/EPHRAIM_JN:[id number]: Gasper Thurman D.O. [address] [place] [id number] [place] [facility] MR[facility] [id number] Age: 61 Physician: Date: 03/23/2017 Lab#: Date of : 1955 Patient Type: I [facility] [id number] [place], [place] [address] Board of the [place] [employer] Accredited LaboratoryDate of : [birth year]Medical record number: [id number] lab November: M-207-17 Day 6Date of study: 03/22/2017 to 03/23/2017Referring physician: Dr. Hoa Alvares WilliamHistory:This is a 61-year-old male with new onset seizure and fever. The study isto assist clinical diagnosis due to a concern of possible epilepticetiology.MEDICATION: Versed, KeppraTechnical Description:This is a continuous monitoring utilizing digital EEG, audio, and video [facility]. EEG electrodes was placed according to International [...] monitoring utilizing digital EEG, audio, and video [facility]. This record started at 06:30:22 hours [...] Signed by:Damián Olvera M.D. 03/23/2017 02:41 P ___Damián Olvera M.D.Date Dict: 03/23/2017/02:39 P/Damián Olvera M.D.Date Trans: 03/23/2017 02:39 P/EPHRAIM_JN:[id number]: Gasper Thurman D.O. [address] [place] [address] A [facility] [address] Normal [facility] MAGNESIUM BLOODon 03-23-2017 Magnesium 2.1 mg/dL Normal 1.9-2.7 [facility] Comment on above: Order Comment: Other , right weakness left gaze pref Performed By: #### 0 0071, 64044, 71781 ####[address] MRI BRAIN TEMPORAL LOBE W WO CONTRASTon 03-23-2017 MRI BRAIN TEMPORAL LOBE W WO CONTRAST [facility] [address] [place] [address] Patient Name: REMINGTON BARKER : 1955Sex: MAge: Race: WhiteMRN: [id number]. Location: [id number] Status: IVisit #: [id number] Date: 03/22/2017 5:35:00 PMCompleted Date: 03/23/2017 03:58 PMRequesting Provider: MIKI SCOTT Attending Provider: ALEXI LOWERY Report Copy To: Signs & Symptoms: OtherHistory: Patient history not availableComments: Other, epilepsy with status epilepticus, MRI brain findings suggestive of MTLS.Exam: MRI BRAIN TEMPORAL LOBE W WO CONTRASTAccession #: [id number] MRI BRAIN TEMPORAL LOBE W WO CONTRAST [...] cells Electronically signed by:Giovanni Gabriel. Transcribed by: [email or web address], User Resident: Electronically Signed by: GIOVANNI GABRIEL @ 03/24/2017 09:41 AM Normal [facility] Comment on above: Order Comment: Other , right weakness left gaze pref MRI CERVICAL SPINE WO CONTRA STon 03-23-2017 MRI CERVICAL SPINE WO CONTRAST [facility] [address] [place] [address] Patient Name: REMINGTON BARKER : 1955Sex: MAge: Race: WhiteMRN: [id number]. Location: [id number] Status: IVisit #: [id number] Date: 03/19/2017 2:45:00 PMCompleted Date: 03/23/2017 03:58 PMRequesting Provider: JAVI BRASWELL Attending Provider: ALEXI LOWERY Report Copy To: Signs & Symptoms: Paralysis (specify)History: Patient history not availableComments: R/O Spinal Stenosis, right sided hemiparesis r/o cervical spine pathologyExam: MRI CERVICAL SPINE WO CONTRASTAccession #: [id number] MRI CERVICAL SPINE WO CONTRAST 03/23/2017 3:58 [...] C6-C7 Electronically signed by:Giovanni Gabriel. Transcribed by: [email or web address], User Resident: Electronically Signed by: GIOVANNI GABRIEL @ 03/24/2017 11:00 AM Normal [facility] Comment on above: Order Comment: Other , right weakness left gaze pref PHOSPHORUS BLOODon 7 Phosphate 2.8 mg/dL Normal 2.5-5.0 [facility] Comment on above: Order Comment: Other , right weakness left gaze pref Performed By: #### 0 0071, 46825, 11248 ####[facility] [place] [address], [facility] POC GLUCOSE LABon 03-23-2017 Glucose mass conc 176 mg/dL High 70-100 [facility] Comment on above: Performed By: #### 8 5499 ####[facility] [place] [address], [facility] Glucose mass conc 194 mg/dL High 70-100 [facility] Comment on above: Performed By: #### 8 6309 ####[facility] [place] [address], [facility] Glucose mass conc 195 mg/dL High 70-100 [facility] Comment on above: Performed By: #### 8 5499 ####[facility] [facility] [address], [facility] Glucose mass conc 190 mg/dL High 70-100 [facility] Comment on above: Performed By: #### 8 5499 ####[facility] [facility].[place], [place] [address] PORTABLE CHEST 1 VIEWon PORTABLE CHEST 1 VIEW [facility]hozeecti[address] [place] [id number] Patient Name: REMINGTON BARKER : 1955Sex: MAge: Race: WhiteMRN: [id number]. Location: [id number] Status: IVisit #: [id number] Date: 03/23/2017 5:00:00 AMCompleted Date: 03/23/2017 08:01 AMRequesting Provider: JEFF SANDOVAL Attending Provider: ALEXI LOWERY Report Copy To: Signs & Symptoms: Elevated WBCHistory: Patient history not availableComments: R/O PneumoniaExam: PORTABLE CHEST 1 VIEWAccession #: [id number] PORTAB LE CHEST 1 VIEW 03/23/2017 8:01 AM EDT [...] findings. Electronically signed by:Giovanni Gabriel. Transcribed by: [email or web address], User Resident: TETE DEL VALLEElectronically Signed by: GIOVANNI GABRIEL @ 03/23/2017 01:07 PMI personally read this/these film(s) with this resident Normal [facility] Comment on above: Order Comment: Other , right weakness left gaze pref ARTERIAL BLOOD GAS WITH ICAo n 03-22-2017 BASE EXCESS 2 mmol/L Normal -2-2 [facility] Comment on above: Performed By: #### 8 4511 ####[facility] [facility].[address] Bicarbonate (HCO3) 26 mmol/L Normal 23-27 [facility] Comment on above: Performed By: #### 8 4511 ####[facility] [place] [address], [facility] CO2 38 mmHg Normal 35-45 [facility] Comment on above: Performed By: #### 8 4511 ####[facility] [place] [address], [facility] [employer] MV Normal [facility] Comment on above: Performed By: #### 8 4511 ####[facility] [place] [address], [facility] FIO2 40 % Normal 21-100 [facility] Comment on above: Performed By: #### 8 4511 ####[facility] [place] [address], [facility] IONIZED CALCIUM 1.18 mmol/L Normal 1.13-1.32 [facility] Comment on above: Performed By: #### 8 4511 ####[facility] [place] [address], [place] MIN VOLUME 8.6 Normal [facility] Comment on above: Performed By: #### 8 4511 ####[facility] [place] [address], [place] MODALITY AC Normal [facility] Comment on above: Performed By: #### 8 4511 ####[facility] [place] [address], [place] O2 saturation 93.1 % Low 94.0-97.0 [facility] Comment on above: Performed By: #### 8 4511 ####[facility] [place] [address], [place] Oxygen in arterial blood 70 mm[Hg] Low 75-100 [facility] Comment on above: Performed By: #### 8 4511 ####[facility] [place] [address], [place] PEEP 5.0 CMH20 Normal [facility] Comment on above: Performed By: #### 8 4511 ####[facility] [place] [address], [place] pH of blood 7.44 [pH] Normal 7.35-7.45 [facility] Comment on above: Performed By: #### 8 4511 ####[facility] [place] [address], [place] Respiratory rate 14 /min Normal [facility] Comment on above: Performed By: #### 8 4511 ####[facility] [place] [address], [facility] TIDAL VOLUME (VT) CC 500 Normal [facility] Comment on above: Performed By: #### 8 4511 ####[facility] [place] [address], [facility] BASIC METABOLIC PANELon 09-3 -2016 Calcium 8.2 mg/dL Low 8.6-10.3 [facility] Comment on above: Order Comment: No: D o not add to previous draw Performed By: #### 1 0070, 59087, 91723 ####[facility] [place] [address], [facility] Chloride 107 mmol/L Normal 98-107 [facility] Comment on above: Order Comment: No: D o not add to previous draw Performed By: #### 1 0070, 53641, 74743 ####[facility] [place] [address], [facility] CO2 25 mmol/L Normal 21-31 [facility] Comment on above: Order Comment: No: D o not add to previous draw Performed By: #### 1 0070, 61688, 24945 ####[facility] [place] [address], [facility] Creatinine 0.71 mg/dL Normal 0.70-1.30 [facility] Comment on above: Order Comment: No: D o not add to previous draw Performed By: #### 1 0070, 02923, 83224 ####[facility] [place] [address], [place] eGFR (black) mL/min/{1.73_m2} Normal >60 [facility] Comment on above: Order Comment: No: D o not add to previous draw Performed By: #### 1 0070, 32459, 79044 ####[facility] eGFR (non-black) mL/min/{1.73_m2} Normal >60 Th e [facility] Comment on above: Order Comment: No: D o not add to previous draw Performed By: #### 1 0070, 28101, 76275 ####[facility] Glucose mass conc 187 mg/dL High 70-100 [facility] Comment on above: Order Comment: No: D o not add to previous draw Performed By: #### 1 0, 64778, 25571 ####[facility] Potassium molar conc 4.0 mmol/L Normal 3.5-5.1 [facility] Comment on above: Order Comment: No: D o not add to previous draw Performed By: #### 1 0, 25029, 90830 ####[facility] Sodium 141 mmol/L Normal 136-145 [facility] Comment on above: Order Comment: No: D o not add to previous draw Performed By: #### 1 0, 89445, 23375 ####[facility] Urea nitrogen 20 mg/dL Normal 7-25 [facility] Comment on above: Order Comment: No: D o not add to previous draw Performed By: #### 1 0, 45329, 21979 ####[facility] [place] [address], [facility] CBC W/DIFFon 03-22-2017 Basophils Auto #/vol (Bld) 0.0 % Normal 0.0-2.0 [facility] Comment on above: Order Comment: No: D o not add to previous draw Performed By: #### 5 0103 ####[facility] [place] [address], [facility] Eosinophils/100 leukocytes 1.1 % Normal 0.0-5.0 [facility] Comment on above: Order Comment: No: D o not add to previous draw Performed By: #### 5 0103 ####[facility] [place] [address], [facility] Erythrocyte distribution width Auto Ratio (RBC) 13.7 % Normal 11.5-16.9 [facility] Comment on above: Order Comment: No: D o not add to previous draw Performed By: #### 5 0103 ####[facility] [place] [address], [facility] Erythrocytes (RBC) 4.12 mill/mm3 Low 4.30-5.90 [facility] Comment on above: Order Comment: No: D o not add to previous draw Performed By: #### 5 0103 ####[facility] Hematocrit (HCT) 37.1 % Low 39.0-55.0 [facility] Comment on above: Order Comment: No: D o not add to previous draw Performed By: #### 5 0103 ####[facility] Hemoglobin mass conc (Bld) 12.4 g/dL Low 13.9-16.3 [facility] Comment on above: Order Comment: No: D o not add to previous draw Performed By: #### 5 0103 ####[facility] [place] [address], [facility] Lymphocytes/100 leukocytes 16.3 % Low 20.0-40.0 [facility] Comment on above: Order Comment: No: D o not add to previous draw Performed By: #### 5 0103 ####[facility] [place] [address], [facility] MCH 30.0 pg Normal 24.0-32.0 [facility] Comment on above: Order Comment: No: D o not add to previous draw Performed By: #### 5 0103 ####[facility] MCHC mass conc (RBC) 33.4 g/dL Normal 32.0-36.0 [facility] Comment on above: Order Comment: No: D o not add to previous draw Performed By: #### 5 0103 ####[facility] MCV 90.1 fL Normal 80.0-100.0 [facility] Comment on above: Order Comment: No: D o not add to previous draw Performed By: #### 5 0103 ####[facility] METHOD Normal RBC Morphology Normal [facility] Comment on above: Order Comment: No: D o not add to previous draw Performed By: #### 5 0103 ####[facility] MONOS 12.1 % High 2-8 [facility] Comment on above: Order Comment: No: D o not add to previous draw Performed By: #### 5 0103 ####[facility] [place] [address], [facility] Neutrophils/100 leukocytes 70.5 % High 50-70 [facility] Comment on above: Order Comment: No: D o not add to previous draw Performed By: #### 5 0103 ####[facility] [place] [address], [facility] PLAT CNT 120 Thou/mm3 Normal 100-400 [facility] Comment on above: Order Comment: No: D o not add to previous draw Performed By: #### 5 3 ####[facility] [place] [address], [facility] WBC (Leukocytes) 4.7 Thou/mm3 Normal 4.0-10.0 [facility] Comment on above: Order Comment: No: D o not add to previous draw Performed By: #### 5 0103 ####[facility] EEG Reporton 03-22-2017 [facility] [id number] Age: 61 Physician: Date: 03/22/2017 Lab#: Date of : 1955 Patient Type: I NEURODIAGNOSTIC SERVICES [id number] [place], [place] [address] Board of the [place] [employer] Accredited LaboratoryDate of : [birth year]Medical record number: [id number] lab November: [id number] of study: 03/21/2017 to 03/22/2017Referring physician: Dr. Hoa Alvares WilliamHistory:This is a 61-year-old male with new onset seizure and fever. The study isto assist clinical diagnosis due to a concern of possible epilepticetiology.MEDICATION: Versed, KeppraTechnical Description:This is a continuous monitoring utilizing digital EEG, audio, and video [facility]. EEG electrodes was placed according to International [...] monitoring utilizing digital EEG, audio, and video [facility]. This record started at 06:30:23 hours on [...] frequency of the 12-14 Hz since amplitude [id number] V were frequently noticed as brief segments [...] Signed by:Damián Olvera M.D. 03/22/2017 03:51 P ___Damián Olvera M.D.Date Dict: 03/22/2017/03:50 P/Damián Olvera M.D.Date Trans: 03/22/2017 03:50 P/DN_JN:[id number]: Gasper Thurman D.O. [address] [place] [id number] [place] [facility] EEG [facility] MR#: [id number] Age: 61 Physician: Date: 03/20/2017 To 03/21/2017 Lab#: [id number], day #4. Date of : 1955 Patient Type: I NEURODIAGNOSTIC SERVICES [id number] [place], [place] [address] Board of the [place] [employer] Accredited LaboratoryREFERRING PHYSICIAN: Hoa Chanel M.D. Ph.D.HISTORY: This video/EEG continuous monitoring is performed on [id number] male with a history of seizures, who [...] for sedation. No epileptiform disturbance or seizure activitiesrecorded.Electronic ally Signed by:Hoa Chanel M.D. Ph.D 03/24/2017 01:01 P ___Hoa Chanel M.D. Ph.DDate Dict: 03/21/2017/09:25 A/Hoa Chanel M.D. Ph.DDate Trans: 03/22/2017 02:11 A/mmoDate Revised: 03/24/2017 10:30 A/Herb_JN:[id number]: Gasper Thurman D.O. [address] [place] [phone] Normal [facility] LACTATE BLOODon 03-22-2017 Lactate 0.7 mmol/L Normal .5-2.2 [facility] Comment on above: Order Comment: Other , right weakness left gaze pref Performed By: #### 1 0054 ####[facility] [place] [address], [facility] MAGNESIUM BLOODon 03-22-2017 Magnesium 2.2 mg/dL Normal 1.9-2.7 [facility] Comment on above: Order Comment: No: D o not add to previous draw Performed By: #### 1 0070, 34843, 84866 ####[facility] [place] [address], [facility] OSMOLALITY BLOODon 7 Osmolality 308 mOsm/kg High 285-305 [facility] Comment on above: Order Comment: Other , right weakness left gaze pref Performed By: #### 1 0088, 18914 ####[facility] [facility] [place] [address], [facility] PHOSPHORUS BLOODon 7 Phosphate 2.2 mg/dL Low 2.5-5.0 [facility] Comment on above: Order Comment: No: D o not add to previous draw Performed By: #### 1 0070, 56966, 62193 ####[facility] [facility] [place] [address], [facility] POC GLUCOSE LABon 03-22-2017 Glucose mass conc 194 mg/dL High 70-100 [facility] Comment on above: Performed By: #### 8 5499 ####[facility] [facility] [place] [address], [facility] Glucose mass conc 194 mg/dL High 70-100 [facility] Comment on above: Performed By: #### 8 5499 ####[facility] [facility] [place] [address], [facility] Glucose mass conc 195 mg/dL High 70-100 [facility] Comment on above: Performed By: #### 8 5499 ####[facility] [place] [address], [facility] Glucose mass conc 195 mg/dL High 70-100 [facility] Comment on above: Performed By: #### 8 5499 ####[facility] [facility] [place] [address], [facility] TRIGLYCERIDES BLOODon 2016 Triglyceride 152 mg/dL High 40-149 [facility] Comment on above: Order Comment: Other , right weakness left gaze pref Result Comment: TRIG LYCERIDE REFERENCE RANGE:20 YEARS AND OLDER CARDIOVASCULAR RISKLESS THAN 150 mg/dl LOW [id number] TO 199 mg/dl BORDERLINE [id number] mg/dl AND GREATER HIGH RISK Performed By: #### 1 0088, 30423 ####[facility] [place] [address], [facility] AMMONIA BLOODon 03-21-2017 Ammonia 72 umol/L High 16-53 [facility] Comment on above: Order Comment: No: D o not add to previous drawNurse draw per TEJ Canales. Performed By: #### 0 0121, 97264, 30926, 16216 ####[facility] [place] [address], [facility] ARTERIAL BLOOD GAS WITH ICAo n 03-21-2017 BASE EXCESS -1 mmol/L Normal -2-2 [facility] Comment on above: Performed By: #### 0 0121, 65397, 52172, 28026 ####[facility] [place] [address], [facility] Bicarbonate (HCO3) 24 mmol/L Normal 23-27 [facility] Comment on above: Performed By: #### 0 0121, 30692, 43387, 42450 ####[facility] [place] [address], [facility] CO2 38 mmHg Normal 35-45 [facility] Comment on above: Performed By: #### 0 0121, 56108, 98090, 54927 ####[facility] [place] [address], [facility] [employer] MV Normal [facility] Comment on above: Performed By: #### 0 0121, 58170, 77440, 31996 ####[facility] [place] [address], [facility] FIO2 40 % Normal 21-100 [facility] Comment on above: Performed By: #### 0 0121, 44782, 92336, 22161 ####[facility] [place] [address], [place] IONIZED CALCIUM 1.22 mmol/L Normal 1.13-1.32 [facility] Comment on above: Performed By: #### 0 0121, 39738, 17899, 22417 ####[facility] [place] [address], [facility] MIN VOLUME 8.8 Normal [facility] Comment on above: Performed By: #### 0 0121, 83593, 13712, 04315 ####[facility] [place] [address], [place] MODALITY AC Normal [facility] Comment on above: Performed By: #### 0 0121, 53582, 33559, 82412 ####[facility] [place] [address], [facility] O2 saturation 94.6 % Normal 94.0-97.0 [facility] Comment on above: Performed By: #### 0 0121, 17180, 78049, 46581 ####[facility] [place] [address], [place] Oxygen in arterial blood 90 mm[Hg] Normal 75-100 [facility] Comment on above: Performed By: #### 0 0121, 95566, 28710, 31546 ####[facility] [place] [address], [place] PEEP 5.0 CMH20 Normal [facility] Comment on above: Performed By: #### 0 0121, 32234, 54829, 55384 ####[facility] PF RATIO 225 mmHg Normal 50-400 [facility] Comment on above: Performed By: #### 0 0121, 40023, 10197, 59486 ####[facility] pH of blood 7.40 [pH] Normal 7.35-7.45 [facility] Comment on above: Performed By: #### 0 0121, 42431, 92496, 99911 ####[facility] Respiratory rate 14 /min Normal [facility] Comment on above: Performed By: #### 0 0121, 13234, 35672, 79672 ####[facility] TIDAL VOLUME (VT) CC 500 Normal [facility] Comment on above: Performed By: #### 0 0121, 67883, 68032, 46189 ####[facility] BASIC METABOLIC PANELon 09-2 Calcium 8.2 mg/dL Low 8.6-10.3 [facility] Comment on above: Order Comment: No: D o not add to previous draw Performed By: #### 0 0121, 10617, 31334, 77806 ####[facility] [place] [address], [facility] Chloride 106 mmol/L Normal 98-107 [facility] Comment on above: Order Comment: No: D o not add to previous draw Performed By: #### 0 0121, 37473, 07815, 71982 ####[facility] [place] [address], [facility] CO2 24 mmol/L Normal 21-31 [facility] Comment on above: Order Comment: No: D o not add to previous draw Performed By: #### 0 0121, 86494, 34152, 08925 ####[facility] Creatinine 0.80 mg/dL Normal 0.70-1.30 [facility] Comment on above: Order Comment: No: D o not add to previous draw Performed By: #### 0 0121, 84967, 33675, 42526 ####[facility] eGFR (black) mL/min/{1.73_m2} Normal >60 [facility] Comment on above: Order Comment: No: D o not add to previous draw Performed By: #### 0 0121, 51488, 31823, 89056 ####[facility] eGFR (non-black) mL/min/{1.73_m2} Normal >60 Th [facility] Comment on above: Order Comment: No: D o not add to previous draw Performed By: #### 0 0121, 85383, 00020, 58644 ####[facility] Glucose mass conc 153 mg/dL High 70-100 [facility] Comment on above: Order Comment: No: D o not add to previous draw Performed By: #### 0 0121, 37395, 37312, 49962 ####[facility] [place] [address], [facility] Potassium molar conc 3.9 mmol/L Normal 3.5-5.1 [facility] Comment on above: Order Comment: No: D o not add to previous draw Performed By: #### 0 0121, 03119, 96418, 09098 ####[facility] [place] [address], [facility] Sodium 142 mmol/L Normal 136-145 [facility] Comment on above: Order Comment: No: D o not add to previous draw Performed By: #### 0 0121, 02881, 89017, 63447 ####[facility] [place] [address], [facility] Urea nitrogen 19 mg/dL Normal 7-25 [facility] Comment on above: Order Comment: No: D o not add to previous draw Performed By: #### 0 0121, 78954, 26426, 12930 ####[facility] [place] [address], [facility] Calcium CANCELED Normal 8.6-10.3 [facility] Comment on above: Order Comment: No: D o not add to previous draw Result Comment: M-CR ITICAL RESULT(S) REVIEWED, CALLED TO AND READ BACK BY SEMAJ Mcgregor RN @0446The released value 5.9 was canceled by [email or web address] on 03/21/2017 05:01 Performed By: #### 0 0121, 29802, 04348, 79075 ####[facility] [place] [address], [facility] Chloride CANCELED Normal 98-107 [facility] Comment on above: Order Comment: No: D o not add to previous draw Result Comment: The released value 77 was canceled by [email or web address] on 03/21/2017 05:01 Performed By: #### 0 0121, 25226, 69428, 97848 ####[facility] [place] [address], [facility] CO2 CANCELED Normal 21-31 [facility] Comment on above: Order Comment: No: D o not add to previous draw Result Comment: The released value 19 was canceled by [email or web address] on 03/21/2017 05:01 Performed By: #### 0 0121, 77051, 80792, 25563 ####[facility] [place] [address], [facility] Creatinine CANCELED Normal 0.70-1.30 [facility] Comment on above: Order Comment: No: D o not add to previous draw Result Comment: The released value 0.51 was canceled by [email or web address] on 03/21/2017 05:01 Performed By: #### 0 0121, 86867, 44187, 91127 ####[facility] [place] [address], [facility] eGFR (black) CANCELED Normal >60 [facility] Comment on above: Order Comment: No: D o not add to previous draw Result Comment: The released value >60 was canceled by [email or web address] on 03/21/2017 05:01 Performed By: #### 0 0121, 30517, 01313, 67017 ####[facility] [facility] [place] [address], [facility] eGFR (non-black) CANCELED Normal >60 [facility] Comment on above: Order Comment: No: D o not add to previous draw Result Comment: The released value >60 was canceled by [email or web address] on 03/21/2017 05:01 Performed By: #### 0 0121, 42515, 19339, 29946 ####[facility] [facility] [address], [facility] Glucose mass conc CANCELED Normal 70-100 [facility] Comment on above: Order Comment: No: D o not add to previous draw Result Comment: The released value 145 was canceled by [email or web address] on 03/21/2017 05:01 Performed By: #### 0 0121, 99825, 70865, 71984 ####[facility] [facility] [address], [facility] Potassium molar conc CANCELED Normal 3.5-5.1 [facility] Comment on above: Order Comment: No: D o not add to previous draw Result Comment: The released value 2.7 was canceled by [email or web address] on 03/21/2017 05:01 Performed By: #### 0 0121, 60493, 23370, 35352 ####[facility] Sodium CANCELED Normal 136-145 [facility] Comment on above: Order Comment: No: D o not add to previous draw Result Comment: M-CR ITICAL RESULT(S) REVIEWED, CALLED TO AND READ BACK BY SEMAJ Mcgregor RN @0441The released value 90 was canceled by [email or web address] on 03/21/2017 05:01 Performed By: #### 0 0121, 07171, 24858, 50121 ####[facility] [facility].[address] Urea nitrogen CANCELED Normal 7-25 [facility] Comment on above: Order Comment: No: D o not add to previous draw Result Comment: The released value 18 was canceled by [email or web address] on 03/21/2017 05:01 Performed By: #### 0 0121, 32601, 04762, 26183 ####[facility] CBC W/DIFFon 03-21-2017 Basophils Auto #/vol (Bld) 0.0 % Normal 0.0-2.0 [facility] Comment on above: Order Comment: No: D o not add to previous draw Performed By: #### 0 0121, 87042, 04536, 29628 ####[facility] Eosinophils/100 leukocytes 0.7 % Normal 0.0-5.0 [facility] Comment on above: Order Comment: No: D o not add to previous draw Performed By: #### 0 0121, 82783, 98445, 68156 ####[facility] Erythrocyte distribution width Auto Ratio (RBC) 13.7 % Normal 11.5-16.9 [facility] Comment on above: Order Comment: No: D o not add to previous draw Performed By: #### 0 0121, 34601, 88839, 15226 ####[facility] [facility] Erythrocytes (RBC) 4.23 mill/mm3 Low 4.30-5.90 [facility] Comment on above: Order Comment: No: D o not add to previous draw Performed By: #### 0 0121, 34597, 43385, 16727 ####[facility] [facility] Hematocrit (HCT) 38.5 % Low 39.0-55.0 [facility] Comment on above: Order Comment: No: D o not add to previous draw Performed By: #### 0 0121, 32179, 87472, 53382 ####[facility] [facility] Hemoglobin mass conc (Bld) 12.8 g/dL Low 13.9-16.3 [facility] Comment on above: Order Comment: No: D o not add to previous draw Performed By: #### 0 0121, 36995, 40652, 87735 ####[facility] [facility].[address] Lymphocytes/100 leukocytes 14.5 % Low 20.0-40.0 [facility] Comment on above: Order Comment: No: D o not add to previous draw Performed By: #### 0 0121, 21799, 02314, 69224 ####[facility] [facility].[address] MCH 30.2 pg Normal 24.0-32.0 [facility] Comment on above: Order Comment: No: D o not add to previous draw Performed By: #### 0 0121, 06594, 26028, 78815 ####[facility] MCHC mass conc (RBC) 33.2 g/dL Normal 32.0-36.0 [facility] Comment on above: Order Comment: No: D o not add to previous draw Performed By: #### 0 0121, 69584, 41072, 77905 ####[facility] [place] [address], [facility] MCV 90.9 fL Normal 80.0-100.0 [facility] Comment on above: Order Comment: No: D o not add to previous draw Performed By: #### 0 0121, 72871, 66419, 62538 ####[facility] METHOD Normal RBC Morphology Normal [facility] Comment on above: Order Comment: No: D o not add to previous draw Performed By: #### 0 0121, 04560, 08506, 68430 ####[facility] MONOS 9.4 % High 2-8 [facility] Comment on above: Order Comment: No: D o not add to previous draw Performed By: #### 0 0121, 73072, 18227, 14797 ####[facility] Neutrophils/100 leukocytes 75.4 % High 50-70 [facility] Comment on above: Order Comment: No: D o not add to previous draw Performed By: #### 0 0121, 22258, 10358, 94621 ####[facility] [place] [address], [facility] PLAT CNT 126 Thou/mm3 Normal 100-400 [facility] Comment on above: Order Comment: No: D o not add to previous draw Performed By: #### 0 0121, 45576, 72457, 07393 ####[facility] WBC (Leukocytes) 5.8 Thou/mm3 Normal 4.0-10.0 [facility] Comment on above: Order Comment: No: D o not add to previous draw Performed By: #### 0 0121, 36929, 75520, 63873 ####[facility] EEG Reporton 03-21-2017 [facility] MR#: [id number] Age: 61 Physician: Hoa Chanel M.D. Ph.D Date: 03/19/2017-03/20/2017 Lab#: [id number], day 3 Date of : 1955 Patient Type: I NEURODIAGNOSTIC SERVICES [id number] [place], [place] [address] Board of the [place] [employer] Accredited LaboratoryHISTORY: This video/EEG continuous monitoring is performed on [id number] man with a history of epilepsy, admitted with refractoryseizures and status epilepticus.CENTRAL ACTIVE MEDICATIONS: Versed infusion, Keppra, carbamazepine,Vimpat.PROCEDUR E: This is a 32-channel digital EEG recording [...] by:Hoa Chanel M.D. Ph.D 03/24/2017 01:01 P ___Hoa Chanel M.D. Ph.DDate Dict: 03/20/2017/09:28 Jeovanny/Hoa Chanel M.D. Ph.DDate Trans: 03/21/2017 05:37 A/Dennis_JN:[id number]: Gasper Thurman D.O. [address] [place] [id number] Hoa Chanel M.D. Ph.D Department Of Neurology [address] [place] [address] Normal [facility] LACTATE BLOODon 03-21-2017 Lactate 0.7 mmol/L Normal .5-2.2 [facility] Comment on above: Order Comment: No: D o not add to previous draw Performed By: #### 0 0121, 73113, 54867, 03894 ####[facility] [place] [address], [facility] LIVER BATTERYon 03-21-2017 Alanine aminotransferase (ALT) 32 U/L Normal 7-52 [facility] Comment on above: Order Comment: No: D o not add to previous draw Performed By: #### 0 0121, 56041, 41699, 68084 ####[facility] [place] [address], [facility] Albumin 3.0 g/dL Low 3.5-5.7 [facility] Comment on above: Order Comment: No: D o not add to previous draw Performed By: #### 0 0121, 61026, 25748, 83834 ####[facility] [facility] [place] [address], [facility] ALKALINE PHOSPH 34 IU/L Normal 34-104 [facility] Comment on above: Order Comment: No: D o not add to previous draw Performed By: #### 0 0121, 99898, 65963, 79324 ####[facility] [facility] Aspartate aminotransferase (AST) 20 U/L Normal 13-39 [facility] Comment on above: Order Comment: No: D o not add to previous draw Performed By: #### 0 0121, 13263, 83919, 02167 ####[facility] [place] [address], [facility] Bilirubin (direct) 0.1 mg/dL Normal 0.0-0.2 [facility] Comment on above: Order Comment: No: D o not add to previous draw Performed By: #### 0 0121, 85723, 94942, 57511 ####[facility] [place] [address], [facility] Bilirubin (total) 0.5 mg/dL Normal 0.3-1.0 [facility] Comment on above: Order Comment: No: D o not add to previous draw Performed By: #### 0 0121, 88266, 42979, 12609 ####[facility] [place] [address], [facility] Protein 5.5 g/dL Low 6.0-8.3 [facility] Comment on above: Order Comment: No: D o not add to previous draw Performed By: #### 0 0121, 10077, 10363, 43718 ####[facility] [place] [address], [facility] MAGNESIUM BLOODon 03-21-2017 Magnesium 2.2 mg/dL Normal 1.9-2.7 [facility] Comment on above: Order Comment: This order is a replacement of the rejected order with accession [id number]. Performed By: #### 0 0121, 30204, 37633, 24032 ####[facility] [place] [address], [facility] Magnesium CANCELED Normal 1.9-2.7 [facility] Comment on above: Order Comment: No: D o not add to previous draw Result Comment: The released value 2.4 was canceled by [email or web address] on 03/21/2017 05:02 Performed By: #### 0 0121, 41228, 82203, 66172 ####[facility] [place] [address], [facility] PHOSPHORUS BLOODon 7 Phosphate 2.5 mg/dL Normal 2.5-5.0 [facility] Comment on above: Order Comment: This order is a replacement of the rejected order with accession [id number]. Performed By: #### 0 0121, 72696, 70235, 25246 ####[facility] [place] [address], [facility] Phosphate CANCELED Normal 2.5-5.0 [facility] Comment on above: Order Comment: No: D o not add to previous draw Result Comment: The released value <1.0 was canceled by [email or web address] on 03/21/2017 05:02 Performed By: #### 0 0121, 49595, 96925, 79234 ####[facility] [facility] [place] [address], [facility] POC GLUCOSE LABon 03-21-2017 Glucose mass conc 122 mg/dL High 70-100 [facility] Comment on above: Performed By: #### 0 0121, 09633, 85995, 72076 ####[facility] [place] [address], [facility] Glucose mass conc 148 mg/dL High 70-100 [facility] Comment on above: Performed By: #### 0 0121, 60492, 76291, 84264 ####[facility] [place] [address], [facility] Glucose mass conc 124 mg/dL High 70-100 [facility] Comment on above: Performed By: #### 0 0121, 49441, 56945, 78101 ####[facility] [facility] [place] [address], [facility] TSH WITH REFLEXon 03-21-2017 [place] CANCELED Normal [facility] Comment on above: Order Comment: No: D o not add to previous drawTSH with Reflex canceled. TSH ordered. Performed By: #### 0 0121, 43925, 60639, 59984 ####[facility] [facility] [address], [facility] Thyroid stimulating hormone (TSH) CANCELED Normal 0.34-5.60 [facility] Comment on above: Order Comment: No: D o not add to previous drawTSH with Reflex canceled. TSH ordered. Result Comment: The released value 0.25 was canceled by NAYELY on 03/21/2017 20:25 Performed By: #### 0 0121, 13825, 45099, 57153 ####[facility] [place] [address], [facility] Thyroxine (T4) free CANCELED Normal [facility] Comment on above: Order Comment: No: D o not add to previous drawTSH with Reflex canceled. TSH ordered. Performed By: #### 0 0121, 15221, 57954, 56475 ####[facility] VITAMIN B12on 03-21-2017 Cobalamins (Vitamin B12) 388 pg/mL Normal 180-914 [facility] Comment on above: Order Comment: No: D o not add to previous draw Result Comment: REFE RENCE RANGES:180-914 pg/mL Xskkwb002-275 pg/mL Indeterminate<145 pg/mL Deficient Performed By: #### 0 0121, 55892, 21447, 73286 ####[facility] ARTERIAL BLOOD GAS WITH ICAo n 03-20-2017 BASE EXCESS -2 mmol/L Normal -2-2 [facility] Comment on above: Performed By: #### 0 0121, 80500, 59692, 71608 ####[facility] Bicarbonate (HCO3) 22 mmol/L Low 23-27 [facility] Comment on above: Performed By: #### 0 0121, 84995, 36716, 12357 ####[facility] [place] [address], [facility] CO2 35 mmHg Normal 35-45 [facility] Comment on above: Performed By: #### 0 0121, 58900, 74039, 32838 ####[facility] [place] [address], [facility] [employer] MV Normal [facility] Comment on above: Performed By: #### 0 0121, 71191, 43831, 32187 ####[facility] [place] [address], [facility] FIO2 40 % Normal 21-100 [facility] Comment on above: Performed By: #### 0 0121, 17477, 87624, 28925 ####[facility] [place] [address], [facility] IONIZED CALCIUM 1.20 mmol/L Normal 1.13-1.32 [facility] Comment on above: Performed By: #### 0 0121, 77869, 07314, 65269 ####[facility] [place] [address], [facility] MIN VOLUME 7.8 Normal [facility] Comment on above: Performed By: #### 0 0121, 55037, 23136, 71607 ####[facility] [place] [address], [place] MODALITY AC Normal [facility] Comment on above: Performed By: #### 0 0121, 62327, 24068, 85195 ####[facility] [place] [address], [place] O2 saturation 96.4 % Normal 94.0-97.0 [facility] Comment on above: Performed By: #### 0 0121, 97330, 64575, 26330 ####[facility] [place] [address], [place] Oxygen in arterial blood 106 mm[Hg] Critically high 75-100 [facility] Comment on above: Performed By: #### 0 0121, 41643, 54744, 39740 ####[facility] [place] [address], [place] PEEP 5.0 CMH20 Normal [facility] Comment on above: Performed By: #### 0 0121, 14154, 01970, 92313 ####[facility] [place] [address], [place] PF RATIO 265 mmHg Normal 50-400 [facility] Comment on above: Performed By: #### 0 0121, 78619, 39112, 36262 ####[facility] pH of blood 7.41 [pH] Normal 7.35-7.45 [facility] Comment on above: Performed By: #### 0 0121, 72542, 50710, 13083 ####[facility] [place] [address], [facility] Respiratory rate 14 /min Normal [facility] Comment on above: Performed By: #### 0 0121, 11404, 61702, 35168 ####[facility] TIDAL VOLUME (VT) CC 500 Normal [facility] Comment on above: Performed By: #### 0 0121, 38845, 46298, 02376 ####[facility] BASIC METABOLIC PANELon 09-2 Calcium 7.7 mg/dL Low 8.6-10.3 [facility] Comment on above: Order Comment: No: D o not add to previous draw Performed By: #### 0 0121, 06500, 54115, 18169 ####[facility] [place] [address], [facility] Chloride 113 mmol/L High 98-107 [facility] Comment on above: Order Comment: No: D o not add to previous draw Performed By: #### 0 0121, 07028, 28762, 49542 ####[facility] [place] [address], [facility] CO2 20 mmol/L Low 21-31 [facility] Comment on above: Order Comment: No: D o not add to previous draw Performed By: #### 0 0121, 33758, 36668, 33784 ####[facility] Creatinine 0.71 mg/dL Normal 0.70-1.30 [facility] Comment on above: Order Comment: No: D o not add to previous draw Performed By: #### 0 0121, 27413, 39365, 50502 ####[facility] [place] [address], [facility] eGFR (black) mL/min/{1.73_m2} Normal >60 [facility] Comment on above: Order Comment: No: D o not add to previous draw Performed By: #### 0 0121, 97666, 19291, 31382 ####[facility] eGFR (non-black) mL/min/{1.73_m2} Normal >60 Th e [facility] Comment on above: Order Comment: No: D o not add to previous draw Performed By: #### 0 0121, 97073, 96172, 57667 ####[facility] [place] [address], [facility] Glucose mass conc 78 mg/dL Normal 70-100 [facility] Comment on above: Order Comment: No: D o not add to previous draw Performed By: #### 0 0121, 02440, 06362, 43314 ####[facility] [place] [address], [facility] Potassium molar conc 3.8 mmol/L Normal 3.5-5.1 [facility] Comment on above: Order Comment: No: D o not add to previous draw Performed By: #### 0 0121, 30458, 82720, 69902 ####[facility] [place] [address], [facility] Sodium 141 mmol/L Normal 136-145 [facility] Comment on above: Order Comment: No: D o not add to previous draw Performed By: #### 0 0121, 94793, 25642, 51945 ####[facility] Urea nitrogen 16 mg/dL Normal 7-25 [facility] Comment on above: Order Comment: No: D o not add to previous draw Performed By: #### 0 0121, 22631, 62588, 50227 ####[facility] CBC COMPLETE BLOOD COUNTon 03-20-2017 Erythrocyte distribution width Auto Ratio (RBC) 13.4 % Normal 11.5-16.9 [facility] Comment on above: Order Comment: This order is a replacement of the rejected order with accession [id number]. Performed By: #### 0 0121, 27246, 10898, 14763 ####[facility] Erythrocytes (RBC) 4.14 mill/mm3 Low 4.30-5.90 [facility] Comment on above: Order Comment: This order is a replacement of the rejected order with accession [id number]. Performed By: #### 0 0121, 93583, 63487, 29601 ####[place] [id number] [facility].[address] Hematocrit (HCT) 37.2 % Low 39.0-55.0 [facility] Comment on above: Order Comment: This order is a replacement of the rejected order with accession [id number]. Performed By: #### 0 0121, 45996, 34544, 15812 ####[facility] Hemoglobin mass conc (Bld) 12.5 g/dL Low 13.9-16.3 [facility] Comment on above: Order Comment: This order is a replacement of the rejected order with accession [id number]. Performed By: #### 0 0121, 28331, 90480, 13356 ####[facility] MCH 30.1 pg Normal 24.0-32.0 [facility] Comment on above: Order Comment: This order is a replacement of the rejected order with accession [id number]. Performed By: #### 0 0121, 49685, 66341, 04888 ####[facility] MCHC mass conc (RBC) 33.5 g/dL Normal 32.0-36.0 [facility] Comment on above: Order Comment: This order is a replacement of the rejected order with accession [id number]. Performed By: #### 0 0121, 42933, 64794, 69390 ####[facility] MCV 89.8 fL Normal 80.0-100.0 [facility] Comment on above: Order Comment: This order is a replacement of the rejected order with accession [id number]. Performed By: #### 0 0121, 91656, 19904, 40828 ####[facility] PLAT CNT 142 Thou/mm3 Normal 100-400 [facility] Comment on above: Order Comment: This order is a replacement of the rejected order with accession [id number]. Performed By: #### 0 0121, 45804, 55214, 05368 ####[facility] WBC (Leukocytes) 6.3 Thou/mm3 Normal 4.0-10.0 [facility] Comment on above: Order Comment: This order is a replacement of the rejected order with accession [id number]. Performed By: #### 0 0121, 10116, 86593, 20180 ####[facility] EEG Reporton 03-20-2017 [facility] [id number] Age: 61 Physician: Hoa Chanel M.D. Ph.D Date: 03/18/2017-03/19/2017 Lab#: [id number], day 2 Date of : 1955 Patient Type: I NEURODIAGNOSTIC SERVICES [id number] [place], [place] [address] Board of the [place] [employer] Accredited LaboratoryHISTORY: This video/EEG continuous monitoring is performed on [id number] man with a history of epilepsy, admitted [...] Nojerking movements are noted. No well defined electroencephalographiccorrel ates of sleep are noted.EEG DIAGNOSIS: This video/EEG continuous monitoring is abnormal due to thepresence of very frequent electrographic seizures without return to normalbaseline at the onset of recording, consistent with status epilepticus. Atthe end of the recording, frequency of these brief electrographic seizureslasting from 1-2 minutes and decreases to 0-1 time per hour, with intraseizure interval up to 1.5 hours in the aircraft time clerk hours on . Continuous video/EEG monitoring is recommended to continue forassistance with clinical management, as events are largely subclinical.Aggressive treatment for seizures is advised.Electronically Signed by:Hoa Chanel M.D. Ph.D 03/21/2017 08:50 A ___Hoa Chanel M.D. Ph.DDate Dict: 03/19/2017/09:39 A/Hoa Chanel M.D. Ph.DDate Trans: 03/20/2017 05:53 A/[id number]:[id number]: Gasper Thurman D.O. [address] [place] [id number] Hoa Chanel M.D. Ph.D Department Of Neurology [address] [place] [address] Normal [facility] KEPPRA ILon 03-20-2017 [place] Normal [facility] Comment on above: Order Comment: No: D o not add to previous draw KEPPRA 19 ug/mL Normal [facility] Comment on above: Order Comment: No: D o not add to previous draw Result Comment: A re ference range for Keppra has not been well established. The proposed therapeutic range for seizure control is 6-46 ug/mL. Pharmacokinetics of Keppra are affected by renal function. The relationship between serum concentrations and toxicity is not known. MAGNESIUM BLOODon 03-20-2017 Magnesium 1.8 mg/dL Low 1.9-2.7 [facility] Comment on above: Order Comment: No: D o not add to previous draw Performed By: #### 0 0121, 92081, 16738, 76715 ####[facility] [facility] [place] [address], [facility] PHOSPHORUS BLOODon 7 Phosphate 2.6 mg/dL Normal 2.5-5.0 [facility] Comment on above: Order Comment: No: D o not add to previous draw Performed By: #### 0 0121, 79168, 46853, 34672 ####[facility] [facility] [place] [place] [address], [facility] POC GLUCOSE LABon 03-20-2017 Glucose mass conc 101 mg/dL High 70-100 [facility] Comment on above: Performed By: #### 0 0121, 56902, 39737, 90715 ####[facility] [address], [facility] Glucose mass conc 115 mg/dL High 70-100 [facility] Comment on above: Performed By: #### 0 0121, 50889, 57768, 13702 ####[facility] [address], [facility] Glucose mass conc 78 mg/dL Normal 70-100 [facility] Comment on above: Performed By: #### 0 0121, 10523, 72315, 09650 ####[facility] [address], [facility] Glucose mass conc 78 mg/dL Normal 70-100 [facility] Comment on above: Performed By: #### 0 0121, 51256, 00683, 13359 ####[facility] [address], [facility] PORTABLE CHEST 1 VIEWon 02-22 PORTABLE CHEST 1 VIEW [facility] Htvuahtge[address] [place] [id number] Patient Name: REMINGTON BARKER : 1955Sex: MAge: Race: WhiteMRN: [id number]. Location: [id number] Status: IVisit #: [id number] Date: 03/20/2017 5:10:00 PMCompleted Date: 03/20/2017 05:35 PMRequesting Provider: JEFF SANDOVAL Attending Provider: ALEXI LOWERY Report Copy To: Signs & Symptoms: OtherHistory: Patient history not availableComments: Check E.T. Position, check ET tube positionExam: PORTABLE CHEST 1 VIEWAccession #: [id number] PORTAB LE CHEST 1 VIEW 03/20/2017 5:35 PM EDT [...] findings. Electronically signed by:Brent Wilkinson. Transcribed by: [email or web address], User Resident: REBEKAH ALLENANElectronically Signed by: BRENT WILKINSON @ 03/24/2017 06:41 PMI personally read this/these film(s) with this resident Normal [facility] Comment on above: Order Comment: Other , right weakness left gaze pref VALPROIC ACIDon 03-20-2017 VALPROIC ACID (DEPAKOTE) 72 mcg/mL Normal 60-100 [facility] Comment on above: Performed By: #### 0 0121, 72195, 51099, 97020 ####[facility] *AFB CULTUREon 03-19-2017 *AFB CULTURE Clinical Report: (D) Specimen: CSF Collected: 03/19/2017 12:14 Status: Final Last Updated: 05/01/2017 11:16 (1) Tube 3 Lumbar AFB (Final) No Acid Fast Bacilli Seen CULT RES (Final) No growth after 42 days of incubation Normal [facility] Comment on above: Order Comment: Tube 3 Lumbar Performed By: #### 2 1408 ####[facility] *CRYPTOCOCCAL AGon 7 *CRYPTOCOCCAL AG Clinical Report: (D) Specimen: CSF Collected: 03/19/2017 12:14 Status: Final Last Updated: 03/19/2017 18:37 (1) Tube 2 Lumbar CRYPT A (Final) Negative Normal [facility] Comment on above: Order Comment: Tube 2 Lumbar Performed By: #### 1 0054 ####[facility] *CSF CULTUREon 03-19-2017 *CSF CULTURE Clinical Report: (D) Specimen/Source: CSF/CEREBRAL SPINAL FLUID Collected: 03/19/2017 12:14 Status: Final Last Updated: 03/24/2017 11:16 (1) Tube 2 Lumbar Lumbar Puncture GRAM (Final) No Polys Seen No Bacteria Seen CYTOSPUN (Final) This Gram Stain was done on a cytocentrifuged specimen CULT RES (Final) No Growth Day 5 Normal [facility] Comment on above: Order Comment: Tube 2 LumbarLumbar Puncture Performed By: #### 0 0121, 07178, 01941, 59881 ####[facility] [facility].[address] *FUNGAL CULTUREon 03-19-2017 *FUNGAL CULTURE Clinical Report: (D) Specimen: MISC Collected: 03/19/2017 12:14 Status: Final Last Updated: 04/21/2017 08:05 (1) Tube 2 Lumbar No: Do not add to previous draw CULT RES (Final) Culture negative for fungus Normal [facility] Comment on above: Order Comment: Tube 2 LumbarNo: Do not add to previous draw Performed By: #### 0 0121, 02970, 95073, 62737 ####[facility].[address] APTTon 03-19-2017 aPTT 28.2 s Normal 25.0-35.0 [facility] Comment on above: Order Comment: No: D [...] THIS PURPOSE. Performed By: #### 2 1408 ####[facility].[address] ARTERIAL BLOOD GAS WITH ICAo n 03-19-2017 BASE EXCESS -3 mmol/L Low -2-2 [facility] Comment on above: Performed By: #### 2 1408 ####[facility] [place] [address], [facility] Bicarbonate (HCO3) 22 mmol/L Low 23-27 [facility] Comment on above: Performed By: #### 2 1408 ####[facility].[address] CO2 37 mmHg Normal 35-45 [facility] Comment on above: Performed By: #### 2 1408 ####[facility] [place] [address], [facility] DELIVERY SYSTEMS MV Normal [facility] Comment on above: Performed By: #### 2 1408 ####[facility] [place] [address], [facility] FIO2 40 % Normal 21-100 [facility] Comment on above: Performed By: #### 2 1408 ####[facility] [place] [address], [facility] IONIZED CALCIUM 1.14 mmol/L Normal 1.13-1.32 [facility] Comment on above: Performed By: #### 2 1408 ####[facility] [place] [address], [facility] MIN VOLUME 7.3 Normal [facility] Comment on above: Performed By: #### 2 1408 ####[facility] [place] [address], [facility] MODALITY AC Normal [facility] Comment on above: Performed By: #### 2 1408 ####[facility] [place] [address], [facility] O2 saturation 95.1 % Normal 94.0-97.0 [facility] Comment on above: Performed By: #### 2 1408 ####[facility] [place] [address], [facility] Oxygen in arterial blood 103 mm[Hg] Critically high 75-100 [facility] Comment on above: Performed By: #### 2 1408 ####[facility] [place] [address], [facility] PEEP 5.0 CMH20 Normal [facility] Comment on above: Performed By: #### 2 1408 ####[facility] pH of blood 7.38 [pH] Normal 7.35-7.45 [facility] Comment on above: Performed By: #### 2 1408 ####[facility] [place] [address], [facility] Respiratory rate 14 /min Normal [facility] Comment on above: Performed By: #### 2 1408 ####[facility] TIDAL VOLUME (VT) CC 500 Normal [facility] Comment on above: Performed By: #### 2 1408 ####[facility] BASIC METABOLIC PANELon 09-2 Calcium 7.5 mg/dL Low 8.6-10.3 [facility] Comment on above: Order Comment: No: D o not add to previous draw Performed By: #### 2 1408 ####[facility] [place] [address], [facility] Chloride 114 mmol/L High 98-107 [facility] Comment on above: Order Comment: No: D o not add to previous draw Performed By: #### 2 1408 ####[facility] [place] [address], [facility] CO2 21 mmol/L Normal 21-31 [facility] Comment on above: Order Comment: No: D o not add to previous draw Performed By: #### 2 1408 ####[facility] [place] [address], [facility] Creatinine 0.83 mg/dL Normal 0.70-1.30 [facility] Comment on above: Order Comment: No: D o not add to previous draw Performed By: #### 2 1408 ####[facility] [place] [address], [place] eGFR (black) mL/min/{1.73_m2} Normal >60 [facility] Comment on above: Order Comment: No: D o not add to previous draw Performed By: #### 2 1408 ####[facility] [place] [address], [facility] eGFR (non-black) mL/min/{1.73_m2} Normal >60 Th e [facility] Comment on above: Order Comment: No: D o not add to previous draw Performed By: #### 2 1408 ####[facility] [facility].[address] Glucose mass conc 105 mg/dL High 70-100 [facility] Comment on above: Order Comment: No: D o not add to previous draw Performed By: #### 2 1408 ####[place] [address] [facility].[address] Potassium molar conc 3.9 mmol/L Normal 3.5-5.1 [facility] Comment on above: Order Comment: No: D o not add to previous draw Performed By: #### 2 1408 ####[facility] [facility].[address] Sodium 144 mmol/L Normal 136-145 [facility] Comment on above: Order Comment: No: D o not add to previous draw Performed By: #### 2 1408 ####[facility] [facility].[address] Urea nitrogen 19 mg/dL Normal 7-25 [facility] Comment on above: Order Comment: No: D o not add to previous draw Performed By: #### 2 1408 ####[place] [address] [facility].[address] CBC W/DIFFon 03-19-2017 Basophils Auto #/vol (Bld) 0.2 % Normal 0.0-2.0 [facility] Comment on above: Order Comment: No: D o not add to previous draw Performed By: #### 2 1408 ####[facility] [place] [address], [facility] Eosinophils/100 leukocytes 0.7 % Normal 0.0-5.0 [facility] Comment on above: Order Comment: No: D o not add to previous draw Performed By: #### 2 1408 ####[facility] [place] [address], [facility] Erythrocyte distribution width Auto Ratio (RBC) 13.7 % Normal 11.5-16.9 [facility] Comment on above: Order Comment: No: D o not add to previous draw Performed By: #### 2 1408 ####[facility] [facility].[address] Erythrocytes (RBC) 4.16 mill/mm3 Low 4.30-5.90 [facility] Comment on above: Order Comment: No: D o not add to previous draw Performed By: #### 2 1408 ####[facility] [facility].[address] Hematocrit (HCT) 37.6 % Low 39.0-55.0 [facility] Comment on above: Order Comment: No: D o not add to previous draw Performed By: #### 2 1408 ####[facility] [facility] [place] [address], [facility] Hemoglobin mass conc (Bld) 12.6 g/dL Low 13.9-16.3 [facility] Comment on above: Order Comment: No: D o not add to previous draw Performed By: #### 2 1408 ####[facility] [facility] [address], [facility] Lymphocytes/100 leukocytes 12.0 % Low 20.0-40.0 [facility] Comment on above: Order Comment: No: D o not add to previous draw Performed By: #### 2 1408 ####[facility] [place] [address], [facility] MCH 30.2 pg Normal 24.0-32.0 [facility] Comment on above: Order Comment: No: D o not add to previous draw Performed By: #### 2 1408 ####[facility] [place] [address], [facility] MCHC mass conc (RBC) 33.5 g/dL Normal 32.0-36.0 [facility] Comment on above: Order Comment: No: D o not add to previous draw Performed By: #### 2 1408 ####[facility] [place] [address], [facility] MCV 90.3 fL Normal 80.0-100.0 [facility] Comment on above: Order Comment: No: D o not add to previous draw Performed By: #### 2 1408 ####[facility] [place] [address], [facility] METHOD Normal RBC Morphology Normal [facility] Comment on above: Order Comment: No: D o not add to previous draw Performed By: #### 2 1408 ####[facility] [place] [address], [facility] MONOS 6.5 % Normal 2-8 [facility] Comment on above: Order Comment: No: D o not add to previous draw Performed By: #### 2 1408 ####[facility] [place] [address], [facility] Neutrophils/100 leukocytes 80.6 % High 50-70 [facility] Comment on above: Order Comment: No: D o not add to previous draw Performed By: #### 2 1408 ####[facility] [place] [address], [facility] PLAT CNT 148 Thou/mm3 Normal 100-400 [facility] Comment on above: Order Comment: No: D o not add to previous draw Performed By: #### 2 1408 ####[facility] [place] [address], [facility] WBC (Leukocytes) 9.0 Thou/mm3 Normal 4.0-10.0 [facility] Comment on above: Order Comment: No: D o not add to previous draw Performed By: #### 2 1408 ####[facility] [place] [address], [facility] CSF CELL COUNTon 03-19-2017 Erythrocytes (RBC) 0 mm3 Normal 0-0 [facility] Comment on above: Order Comment: Lumba r Tube 1 Tube 4 Performed By: #### 1 0054 ####[facility] [place] [address], [facility] Erythrocytes (RBC) 22 mm3 High 0-0 [facility] Comment on above: Performed By: #### 1 0054 ####[facility] [place] [address], [facility] FLUID APPEAR CLEAR AND COLORLESS Normal [facility] Comment on above: Order Comment: Lumba r Tube 1 Tube 4 Performed By: #### 1 0054 ####[facility] [place] [address], [facility] FLUID VOLUME 23.5 mL Normal [facility] Comment on above: Order Comment: Lumba r Tube 1 Tube 4 Performed By: #### 1 0054 ####[facility] [place] [address], [facility] Lymphocytes/100 leukocytes 56 % High 0-0 [facility] Comment on above: Order Comment: Lumba r Tube 1 Tube 4 Performed By: #### 1 0054 ####[facility] [place] [address], [place] Lymphocytes/100 leukocytes 55 % High 0-0 [facility] Comment on above: Performed By: #### 1 0054 ####[facility] [facility] [place] [address], [facility] MACROPHAGE 8 % Normal [facility] Comment on above: Order Comment: Lumba r Tube 1 Tube 4 Performed By: #### 1 0054 ####[facility] [facility] [place] [address], [facility] MACROPHAGE 13 % Normal [facility] Comment on above: Performed By: #### 1 0054 ####[facility] [facility] [place] [address], [facility] OTHER F2 70 CELL DIFF DONE BY CYTOSPIN Normal [facility] Comment on above: Order Comment: Lumba r Tube 1 Tube 4 Performed By: #### 1 0054 ####[facility].[address] OTHER F2 80 CELL DIFF DONE BY CYTOSPIN Normal [facility] Comment on above: Performed By: #### 1 0054 ####[facility] [facility].[address] OTHER F3 CHECKED BY ROBLES GARZA M.D. Normal [facility] Comment on above: Order Comment: Lumba r Tube 1 Tube 4 Result Comment: Resu lt changed by CHACHO on 03/21/2017 10:11. The previous value wasPRELIMINARY REPORT; VERIFIED REPORT TO FOLLOW. Performed By: #### 1 0054 ####[facility] [facility] [address], [facility] SEGS 6 % High 0-0 [facility] Comment on above: Order Comment: Lumba r Tube 1 Tube 4 Performed By: #### 1 0054 ####[facility] [facility] [address], [facility] SEGS 12 % High 0-0 [facility] Comment on above: Performed By: #### 1 0054 ####[facility] SITE LUMBAR Normal [facility] Comment on above: Order Comment: Lumba r Tube 1 Tube 4 Performed By: #### 1 0054 ####[address] WBC (Leukocytes) 5 mm3 High 0-0 [facility] Comment on above: Performed By: #### 1 0054 ####[address] WBC (Leukocytes) 7 mm3 High 0-0 [facility] Comment on above: Order Comment: Lumba r Tube 1 Tube 4 Performed By: #### 1 0054 ####[address] XANTHOCHROMIA NONE SEEN Normal [facility] Comment on above: Order Comment: Lumba r Tube 1 Tube 4 Performed By: #### 1 0054 ####[address] CHEST WO CONTRASTon 03-19 CT CHEST WO CONTRAST [facility] Qtcepaksd[address] [place], [place] [address] Patient Name: REMINGTON BARKER : 1955Sex: MAge: Race: WhiteMRN: [id number]. Location: [id number] Status: IVisit #: [id number] Date: 03/19/2017 2:30:00 PMCompleted Date: 03/19/2017 05:31 PMRequesting Provider: JERICHO WANG Attending Provider: ALEXI LOWERY Report Copy To: Signs & Symptoms: Shortness of BreathHistory: Patient history not availableComments: R/O InfiltratesExam: CT CHEST WO CONTRASTAccession #: [id number] CT CHEST WO CONTRAST 03/19/2017 5:31 PM [...] findings. Electronically signed by:Brent Wilkinson. Transcribed by: [email or web address], User Resident: LORENZO GALLEGOSElectronically Signed by: BRENT WILKINSON @ 03/19/2017 08:27 PMI personally read this/these film(s) with this resident Normal [facility] Comment on above: Order Comment: R/O I nfiltrates EEG Reporton 03-19-2017 [facility] [id number] Age: 61 Physician: Date: 03/17/2017 Lab#: [id number] Date of : 1955 Patient Type: I NEURODIAGNOSTIC SERVICES [id number] [place], [place] [address] Board of the [place] [employer] Accredited LaboratoryHISTORY: This is a 61-year-old man with a history of possible seizure, [facility], with complaints of inability to move [...] Signed by:Enrique Osorio MD 03/21/2017 01:26 P ___JENNI Briceate Dict: 03/18/2017/06:45 P/Symone Brice Trans: 03/19/2017 08:31 A/danishaoDN_JN:[id number]: Gasper Thurman D.O. [address] [place] [phone] [place] [facility] [id number] Age: 61 Physician: Hoa Chanel M.D. Ph.D Date: 03/17/2017-03/18/2017 Lab#: [id number], day 1 Date of : 1955 Patient Type: I NEURODIAGNOSTIC SERVICES [id number] [place], [place] [address] Board of the [place] [employer] Accredited LaboratoryHISTORY: This video/EEG continuous monitoring is performed on [id number] man with a history of epilepsy, found [...] by:Hoa Chanel M.D. Ph.D 03/19/2017 02:49 P ___Hoa Chanel M.D. Ph.DDate Dict: 03/18/2017/10:42 A/Hoa Chanel M.D. Ph.DDate Trans: 03/18/2017 10:28 P/mmoDN_JN:[id number]: Gasper Thurman D.O. [address] [place] [phone] Hoa Chanel M.D. Ph.D Department Of Neurology [address] [place] [address] Normal [facility] ENTEROVIRUS, PCR [id number] ENTEROVIRUS , PCR Not Detected Normal [facility] Comment on above: Order Comment: Tube 3 Lumbar Result Comment: NOT DETECTED - A negative result does not rule out thepresence of PCR inhibitors in the patient specimen or assayspecific nucleic acid in concentrations below the level ofdetection by the assay.INTERPRETIVE INFORMATION: Enterovirus by PCRTest developed and characteristics determined by [employer]. See Compliance Statement A: [employer]/CSThis test is performed pursuant to an agreement with [employer]Performed by [employer],[address] [place] [phone] qpm.[employer], Zach Blanchard MD - Lab. Director EV SOURCE Lumbar Normal [facility] Comment on above: Order Comment: Tube 3 Lumbar GLUCOSE CSFon 03-19-2017 GLUCOSE CSF 61 mg/dL Normal 40-70 [facility] Comment on above: Order Comment: Tube 2 Lumbar Performed By: #### 1 0054 ####[address] NEGRO VIRUS PCR [id number] NEGRO VIRUS PCR Not Detected Normal [facility] Comment on above: Order Comment: Tube 2 LumbarNo: Do not add to previous draw Result Comment: NOT DETECTED - A negative result does not rule out thepresence of PCR inhibitors in the patient specimen or assayspecific nucleic acid in concentrations below the level ofdetection by the assay.INTERPRETIVE INFORMATION: NEGRO Virus by PCRTest developed and characteristics determined by [employer]. See Compliance Statement B: [employer]/CSPerformed by [employer],[address] [place] [id number] nad.[employer], Zach Blanchard MD - Lab. Director NEGRO VIRUS SOURCE Lumbar Normal [facility] Comment on above: Order Comment: Tube 2 LumbarNo: Do not add to previous draw LUMBAR PUNCTURE DIAGNOSTICon 03-19-2017 LUMBAR PUNCTURE DIAGNOSTIC [facility] [address] [place] [address] Patient Name: REMINGTON BARKER : 1955Sex: MAge: Race: WhiteMRN: [id number]. Location: [id number] Status: IVisit #: [id number] Date: 03/19/2017 8:00:00 AMCompleted Date: 03/19/2017 12:01 PMRequesting Provider: MIKI SCOTT Attending Provider: ALEXI LOWERY Report Copy To: Signs & Symptoms: Altered Mental StatusHistory: Patient history not availableComments: R/O MenningitisExam: LUMBAR PUNCTURE DIAGNOSTICAccession #: [id number] LUMBAR PUNCTURE DIAGNOSTIC 03/19/2017 12:01 PM EDT [...] and risks are acceptable. Consent was obtained. Timeout:[place] protocol timeout verification performed. PROCEDURE: Lumbar puncture [...] findings. Electronically signed by:Yuko Thorne. Transcribed by: [email or web address], User Resident: [employer] Signed by: YUKO THORNE @ 03/19/2017 03:26 PMI personally read this/these film(s) with this resident Normal [facility] Comment on above: Order Comment: R/O M enningitis LYME ABS DET CSF 75044ol LYME ABS DET 0.04 BENITO Normal <=0.99 [facility] Comment on above: Order Comment: Tube 2 [...] 10 days.Test developed and characteristics determined by [facility]. See Compliance Statement B: [employer]/CSPerformed by [employer],[address] [place] [id number] bbv.[employer], Zach Blanchard MD - Lab. Director MAGNESIUM BLOODon 03-19-2017 Magnesium 1.9 mg/dL Normal 1.9-2.7 [facility] Comment on above: Order Comment: No: D o not add to previous draw Performed By: #### 2 2818 ####[facility] [facility] [address], [facility] PHOSPHORUS BLOODon 7 Phosphate 2.6 mg/dL Normal 2.5-5.0 [facility] Comment on above: Order Comment: No: D o not add to previous draw Performed By: #### 2 5215 ####[facility] [place] [facility] [address], [facility] POC GLUCOSE LABon 03-19-2017 Glucose mass conc 78 mg/dL Normal 70-100 [facility] Comment on above: Performed By: #### 1 0054 ####[facility] [place] [address], [facility] Glucose mass conc 71 mg/dL Normal 70-100 [facility] Comment on above: Performed By: #### 2 1408 ####[facility] [place] [address], [facility] Glucose mass conc 100 mg/dL Normal 70-100 [facility] Comment on above: Performed By: #### 5 0103 ####[facility] [place] [address], [facility] PORTABLE CHEST 1 VIEWon 02-22 PORTABLE CHEST 1 VIEW [facility] Bpzvpnrez[address] [place] [address] Patient Name: REMINGTON BARKER : 1955Sex: MAge: Race: WhiteMRN: [id number]. Location: [id number] Status: IVisit #: [id number] Date: 03/19/2017 5:00:00 AMCompleted Date: 03/19/2017 09:08 AMRequesting Provider: JEFF SANDOVAL Attending Provider: ALEXI LOWERY Report Copy To: Signs & Symptoms: Elevated WBCHistory: Patient history not availableComments: R/O AspirationExam: PORTABLE CHEST 1 VIEWAccession #: [id number] PORTAB LE CHEST 1 VIEW 03/19/2017 9:08 AM EDT [...] atelectasis. Electronically signed by:Ibrahima Garcia. Transcribed by: [email or web address], User Resident: Electronically Signed by: IBRAHIMA GARCIA @ 03/19/2017 01:50 PM Normal [facility] Comment on above: Order Comment: R/O A spiration PROTHROMBIN TIMEon 7 INR Coag RelTime (PPP) 1.11 {INR} Normal 0.91-1.16 [facility] Comment on above: Order Comment: No: D [...] OF ACTION, CLINICALEFFECTIVENESS, AND OPTIMAL THERAPEUTIC RANGE. [id number];108:[id number]-246S. Performed By: #### 2 1408 ####[facility] Prothrombin time (PT) Coag time (PPP) 14.4 s Normal 12.3-14.8 [facility] Comment on above: Order Comment: No: D o not add to previous draw Result Comment: ALL RESULTS MUST BE INTERPRETED WITH RESPECT TO BLOOD DRAWING ARTIFACTOR DILUTION ERROR OF ANTICOAGULANT AT THE TIME OF SAMPLING. Performed By: #### 2 1408 ####[facility] TOTAL PROTEIN CSFon 03-19-20 17 TOTAL PROTEIN CSF 68.0 mg/dL High 20.0-45.0 [facility] Comment on above: Order Comment: Tube 2 LumbarNo: Do not add to previous draw Performed By: #### 1 0054 ####[facility] VARICELLA ZOSTER PCR [id number] 03-19-2017 VZV BY PCR Not Detected Normal [facility] Comment on above: Order Comment: Tube 3 LumbarNo: Do not add to previous draw Result Comment: NOT DETECTED - A negative result does not rule out thepresence of PCR inhibitors in the patient specimen or assayspecific nucleic acid in concentrations below the level ofdetection by the assay.INTERPRETIVE INFORMATION: Varicella-Zoster Virus by PCRTest developed and characteristics determined by [facility]. See Compliance Statement B: [employer]/CSPerformed by [employer],[address] [place] [address] sog.[employer], Zach Blanchard MD - Lab. Director VDRL CSFon 03-19-2017 [place] Normal [facility] Comment on above: Order Comment: Tube 3 Lumbar VDRL NONREACTIVE Normal NR [facility] Comment on above: Order Comment: Tube 3 Lumbar [place] [id number] on 03-19-2017 [place] IGG CSF 0.10 IV Normal <=1.29 [facility] Comment on above: Order Comment: Tube 3 [...] blood-brain barrier.Test developed and characteristics determined by [employer]. See Compliance Statement B: [employer]/CS [place] IGM CSF 0.02 IV Normal <=0.89 [facility] Comment on above: Order Comment: Tube 3 [...] blood-brain barrier.Test developed and characteristics determined by [employer]. See Compliance Statement B: [employer]/CSPerformed by [employer],[address] [facility] [place] [address] jrn.[employer], Zach Blanchard MD - Lab. Director *BLOOD CULTUREon 03-18-2017 *BLOOD CULTURE Clinical Report: (D) Specimen: BLOOD CULTURE Collected: 03/18/2017 10:24 Status: Final Last Updated: 03/24/2017 09:35 CULT RES (Final) No Growth Day 5 Normal [facility] Comment on above: Performed By: #### 1 0054 ####[facility] *SPUTUM CULTUREon 03-18-2017 *SPUTUM CULTURE Clinical Report: (D) Specimen/Source: SPUTUM/SPUTUM, INDUCED Collected: 03/18/2017 16:30 Status: Final Last Updated: 03/21/2017 08:05 (1) Yes: Add to Previous draw if able GRAM (Final) Zero Squamous Epithelial Cells, >25 Polys Per Low Power Field No Bacteria Seen ISO (Final) Rare Growth Colonies Consistent with Upper Respiratory Kaylen Normal [facility] Comment on above: Order Comment: Yes: Add to Previous draw if able Performed By: #### 5 0103 ####[facility] ARTERIAL BLOOD GAS WITH ICAo n 03-18-2017 BASE EXCESS -5 mmol/L Low -2-2 [facility] Comment on above: Performed By: #### 8 4511 ####[facility] [place] [address], [facility] Bicarbonate (HCO3) 21 mmol/L Low 23-27 [facility] Comment on above: Performed By: #### 8 4511 ####[facility] [place] [address], [facility] CO2 39 mmHg Normal 35-45 [facility] Comment on above: Performed By: #### 8 4511 ####[facility] [place] [address], [facility] DELIVERY SYSTEMS VENTILATOR Normal [facility] Comment on above: Performed By: #### 8 4511 ####[facility] [place] [address], [facility] FIO2 40 % Normal 21-100 [facility] Comment on above: Performed By: #### 8 4511 ####[facility] [place] [address], [facility] IONIZED CALCIUM 1.14 mmol/L Normal 1.13-1.32 [facility] Comment on above: Performed By: #### 8 4511 ####[facility] [place] [address], [facility] MIN VOLUME 7.0 Normal [facility] Comment on above: Performed By: #### 8 4511 ####[facility] [place] [address], [facility] MODALITY AC Normal [facility] Comment on above: Performed By: #### 8 4511 ####[facility] [place] [address], [facility] O2 saturation 91.2 % Low 94.0-97.0 [facility] Comment on above: Performed By: #### 8 4511 ####[facility] [place] [address], [facility] Oxygen in arterial blood 71 mm[Hg] Low 75-100 [facility] Comment on above: Performed By: #### 8 4511 ####[facility] [place] [address], [facility] PEEP 5.0 CMH20 Normal [facility] Comment on above: Performed By: #### 8 4511 ####[facility] [place] [address], [facility] PF RATIO 178 mmHg Normal 50-400 [facility] Comment on above: Performed By: #### 8 4511 ####[facility] [place] [address], [facility] pH of blood 7.33 [pH] Low 7.35-7.45 [facility] Comment on above: Performed By: #### 8 4511 ####[facility] Respiratory rate 14 /min Normal [facility] Comment on above: Performed By: #### 8 4511 ####[facility] TIDAL VOLUME (VT) CC 500 Normal [facility] Comment on above: Performed By: #### 8 4511 ####[facility], [place] [address] [place] [address] CPKon 03-18-2017 Creatine kinase (CK) 1402 U/L High 30-223 [facility] Comment on above: Order Comment: No: D o not add to previous draw Performed By: #### 5 0103 ####[facility] [place] [address], [facility] Creatine kinase (CK) 2807 U/L Critically high 30-223 [facility] Comment on above: Performed By: #### 3 9301, 13549, 44601 ####[facility] [place] [address], [facility] KEPPRA ILon 03-18-2017 [place] Normal [facility] Comment on above: Order Comment: Yes: Add to Previous draw if able KEPPRA <2 Normal [facility] Comment on above: Order Comment: Yes: Add to Previous draw if able Result Comment: A re ference range for Keppra has not been well established. The proposed therapeutic range for seizure control is 6-46 ug/mL. Pharmacokinetics of Keppra are affected by renal function. The relationship between serum concentrations and toxicity is not known. LACTATE BLOODon 03-18-2017 Lactate 0.7 mmol/L Normal .5-2.2 [facility] Comment on above: Order Comment: No: D o not add to previous drawNurse draw per TEJ Vela. Performed By: #### 5 0103 ####[facility] [place] [address], [facility] Lactate 2.4 mmol/L High .5-2.2 [facility] Comment on above: Order Comment: Other , right weakness left gaze pref Performed By: #### 1 0054 ####[facility] [place] [address], [facility] MYOGLOBINon 03-18-2017 Myoglobin 127 ng/mL High 0-90 [facility] Comment on above: Order Comment: No: D o not add to previous draw Result Comment: A DO UBLING OF VALUES FROM SERIAL BLOOD COLLECTIONS(1 - 2 HOURS APART) IS MORE INDICATIVE OF A M.I.THAN THE ABSOLUTE VALUE. Performed By: #### 5 0103 ####[facility] [place] [address], [facility] Myoglobin 395 ng/mL Critically high 0-90 [facility] Comment on above: Result Comment: A DO UBLING OF VALUES FROM SERIAL BLOOD COLLECTIONS(1 - 2 HOURS APART) IS MORE INDICATIVE OF A M.I.THAN THE ABSOLUTE VALUE. Performed By: #### 3 9301, 56331, 05205 ####[facility] OSMOLALITY BLOODon 7 Osmolality 313 mOsm/kg High 285-305 [facility] Comment on above: Order Comment: Other , right weakness left gaze pref Performed By: #### 3 9301, 23454, 87960 ####[facility] Operative Reporton 7 Operative Report MR#: [id number] [facility] [place] [place] Pt. Name: Remington Barker Room #: CELINE [id number] Discharge Date: Birthdate: 1955 OPERATIVE REPORTDATE OF SURGERY: 03/18/2017SURGEON: Ale Zavala M.D.PROCEDURE: Right internal jugular triple lumen central venous catheterplacement.INDICATION: IV access.CONTRAINDICATIONS: No contraindications in this particular patient.Procedure is operated by Dr. Covarrubias with attending Dr. Zavala.CONSENT: Written consent was obtained before the procedure explainingrisks, benefits, and purpose. Brother was [id number] in this caseand signing .A time-out was [...] Dict: 03/18/2017/03:38 P/Symone Gaona Trans: 03/18/2017 06:37 P/mmoDN_JN:[id number]: Gasper Thurman D.O. [address] [place] [id number] [facility] Operative Report MR#: [id number] [facility] Pt. Name: Remington Barker Room #: CELINE [id number] Discharge Date: Birthdate: 1955 OPERATIVE REPORTDATE OF SURGERY: 03/18/2017SURGEON: Ale Zavala M.D.PROCEDURE REFRACTORY TECHNICIAN: Dr. Jericho Wang.ATTENDING PHYSICIAN: Dr. Ale Zavala.PROCEDURE: [...] for the entire procedure. Date Dict: 03/18/2017/03:14 P/Jericho Wang, MDDate Trans: 03/18/2017 04:29 P/mmoDN_JN:[id number]: Gasper Thurman D.O. [address] [place] [id number] Normal [facility] POC GLUCOSE LABon 03-18-2017 Glucose mass conc 99 mg/dL Normal 70-100 [facility] Comment on above: Performed By: #### 5 0103 ####[address] Glucose mass conc 121 mg/dL High 70-100 [facility] Comment on above: Performed By: #### 8 5499 ####[address] Glucose mass conc 152 mg/dL High 70-100 [facility] Comment on above: Performed By: #### 8 5499 ####[place] [address] Glucose mass conc 215 mg/dL High 70-100 [facility] Comment on above: Performed By: #### 8 5499 ####[address] PORTABLE CHEST 1 VIEWon 02-22 PORTABLE CHEST 1 VIEW [facility] Pfudgufrn[address] [place] [address] Patient Name: REMINGTON BARKER : 1955Sex: MAge: Race: WhiteMRN: [id number]. Location: [id number] Status: IVisit #: [id number] Date: 03/18/2017 3:30:00 PMCompleted Date: 03/18/2017 03:51 PMRequesting Provider: NANCY COVARRUBIAS Attending Provider: ALEXI LOWERY Report Copy To: Signs & Symptoms: Post Line PlacementHistory: Patient history not availableComments: Check Line Position, Uncomplicated procedure check placement. ; Call/page results to 1488Exam: PORTABLE CHEST 1 VIEWAccession #: [id number] PORTAB LE CHEST 1 VIEW 03/18/2017 3:51 PM EDT SIGNS AND SYMPTOMS: Post Line Placement TECHNOLOGIST COMMENTS: Post line placement QUESTION FOR THE RADIOLOGIST: Check Line Position, Uncomplicated procedure check placement. ; Call/page results to 1488 PROTOCOL: AP(PA) view was obtained. COMPARISON: March [...] improving. Electronically signed by:Sunil Campbell. Transcribed by: [email or web address], User Resident: Electronically Signed by: SUNIL CAMPBELL @ 03/18/2017 03:55 PM Normal [facility] Comment on above: Order Comment: Check Line Position, Uncomplicated procedure check placement. ; Call/page results to 3942 PORTABLE CHEST 1 VIEW [facility] Svyqhpnbm[address] [place] [address] Patient Name: REMINGTON BARKER : 1955Sex: MAge: Race: WhiteMRN: [id number]. Location: [id number] Status: IVisit #: [id number] Date: 03/18/2017 4:05:00 AMCompleted Date: 03/18/2017 04:57 AMRequesting Provider: DORENE PLATA Attending Provider: ALEXI LOWERY Report Copy To: Signs & Symptoms: Post IntubationHistory: Patient history not availableComments: Check E.T. PositionExam: PORTABLE CHEST 1 VIEWAccession #: [id number] PORTAB LE CHEST 1 VIEW 03/18/2017 4:57 AM EDT [...] cm. Electronically signed by:Giovanni Gabriel. Transcribed by: [email or web address], User Resident: Electronically Signed by: GIOVANNI GABRIEL @ 03/18/2017 09:41 AM Normal [facility] Comment on above: Order Comment: Other , right weakness left gaze pref VALPROIC ACIDon 03-18-2017 VALPROIC ACID (DEPAKOTE) 60 mcg/mL Normal 60-100 [facility] Comment on above: Performed By: #### 5 0103 ####[facility] AMMONIA BLOODon 03-17-2017 Ammonia 43 umol/L Normal 16-53 [facility] Comment on above: Performed By: #### 2 1408 ####[facility]3000 [facility] CBC W/DIFFon 03-17-2017 Basophils Auto #/vol (Bld) 0.0 % Normal 0.0-2.0 [facility] Comment on above: Performed By: #### 5 0103 ####[facility]3000 [facility].[address] Eosinophils/100 leukocytes 0.0 % Normal 0.0-5.0 [facility] Comment on above: Performed By: #### 5 0103 ####[facility] Erythrocyte distribution width Auto Ratio (RBC) 13.5 % Normal 11.5-16.9 [facility] Comment on above: Performed By: #### 5 0103 ####[facility] Erythrocytes (RBC) 5.48 mill/mm3 Normal 4.30-5.90 [facility] Comment on above: Performed By: #### 5 0103 ####[facility] Hematocrit (HCT) 48.8 % Normal 39.0-55.0 [facility] Comment on above: Performed By: #### 5 0103 ####[facility] Hemoglobin mass conc (Bld) 16.5 g/dL High 13.9-16.3 [facility] Comment on above: Performed By: #### 5 0103 ####[facility] Lymphocytes/100 leukocytes 7.0 % Low 20.0-40.0 [facility] Comment on above: Performed By: #### 5 0103 ####[facility] MCH 30.2 pg Normal 24.0-32.0 [facility] Comment on above: Performed By: #### 5 0103 ####[facility] MCHC mass conc (RBC) 33.9 g/dL Normal 32.0-36.0 [facility] Comment on above: Performed By: #### 5 3 ####[facility]3000 [facility].[address] MCV 89.2 fL Normal 80.0-100.0 [facility] Comment on above: Performed By: #### 5 3 ####[facility] METHOD Manual blood smear examination performed Normal [facility] Comment on above: Performed By: #### 5 3 ####[facility] [place] [address], [facility] MONOS 6.0 % Normal 2-8 [facility] Comment on above: Performed By: #### 5 3 ####[facility] [place] [address], [facility] OTHER 1 NORMAL RED CELL MORP HOLOGY SEEN Normal [facility] Comment on above: Performed By: #### 5 0103 ####[facility] [place] [address], [facility] PLAT CNT 212 Thou/mm3 Normal 100-400 [facility] Comment on above: Performed By: #### 5 0103 ####[facility] [place] [address], [facility] SEGS 87.0 % High 50-70 [facility] Comment on above: Performed By: #### 5 0103 ####[facility] [place] [address], [facility] WBC (Leukocytes) 16.9 Thou/mm3 High 4.0-10.0 [facility] Comment on above: Performed By: #### 5 0103 ####[facility] [place] [address], [facility] COMP METABOLIC PANELon 03-17 Alanine aminotransferase (ALT) 31 U/L Normal 7-52 [facility] Comment on above: Performed By: #### 0 0121, 41757, 79989, 14373 ####[facility] [place] [address], [facility] Albumin 3.9 g/dL Normal 3.5-5.7 [facility] Comment on above: Performed By: #### 0 0121, 75370, 28656, 34386 ####[facility] [place] [address], [facility] ALKALINE PHOSPH 59 IU/L Normal 34-104 [facility] Comment on above: Performed By: #### 0 0121, 35633, 37199, 93071 ####[facility] [place] [address], [place] Aspartate aminotransferase (AST) 58 U/L High 13-39 [facility] Comment on above: Performed By: #### 0 0121, 68613, 37862, 69065 ####[facility] Bilirubin (total) 0.7 mg/dL Normal 0.3-1.0 [facility] Comment on above: Performed By: #### 0 0121, 23717, 25099, 68308 ####[facility] [place] [address], [facility] Calcium 8.4 mg/dL Low 8.6-10.3 [facility] Comment on above: Performed By: #### 0 0121, 21462, 73353, 94427 ####[facility] [place] [address], [facility] Chloride 109 mmol/L High 98-107 [facility] Comment on above: Performed By: #### 0 0121, 66815, 11936, 27692 ####[facility] CO2 20 mmol/L Low 21-31 [facility] Comment on above: Performed By: #### 0 0121, 41812, 10469, 02958 ####[facility] Creatinine 1.32 mg/dL High 0.70-1.30 [facility] Comment on above: Performed By: #### 0 0121, 59729, 14304, 83221 ####[facility] eGFR (black) mL/min/{1.73_m2} Normal >60 [facility] Comment on above: Performed By: #### 0 0121, 05896, 89009, 25872 ####[facility] eGFR (non-black) 55 ml/min/1.73sq m Abnormal >60 [facility] Comment on above: Performed By: #### 0 0121, 39031, 94771, 46264 ####[facility]3000 [facility].[address] Glucose mass conc 210 mg/dL High 70-100 [facility] Comment on above: Performed By: #### 0 0121, 98022, 53777, 69305 ####[facility]3000 [facility].[address] Potassium molar conc 3.7 mmol/L Normal 3.5-5.1 [facility] Comment on above: Performed By: #### 0 0121, 68518, 07313, 59502 ####[place] [address] [facility].[address] Protein 6.2 g/dL Normal 6.0-8.3 [facility] Comment on above: Performed By: #### 0 0121, 04999, 97128, 75201 ####[facility]3000 [facility].[address] Sodium 139 mmol/L Normal 136-145 [facility] Comment on above: Performed By: #### 0 0121, 66075, 45835, 27005 ####[facility]3000 [facility].[address] Urea nitrogen 30 mg/dL High 7-25 [facility] Comment on above: Performed By: #### 0 0121, 22265, 15006, 06951 ####[facility]3000 [facility].[address] BRAIN PERFUSION 017 CT BRAIN PERFUSION [facility] Azgkkrzma[address] [place] [address] Patient Name: REMINGTON BARKER : 1955Sex: MAge: Race: WhiteMRN: [id number]. Location: EMERPatient Status: EVisit #: [id number] Date: 03/17/2017 5:20:00 PMCompleted Date: 03/17/2017 06:15 PMRequesting Provider: DONNA ADKINS Attending Provider: DONNA ADKINS Report Copy To: Signs & Symptoms: OtherHistory: Patient history not availableComments: Other, right weakness left gaze prefExam: CT BRAIN PERFUSIONAccession #: [id number] CT BRAIN PERFUSION, CTA NECK 03/17/2017 6:15 PM EDT SIGNS AND SYMPTOMS: Stroke alert, rt side weakness with aphasia today. QUESTION FOR THE RADIOLOGIST: Other, right weakness left gaze pref CONTRAST: Contrast: OMNIPAQUE 350 (LOCM), 50 milliliter, Intravenous (accession [id number]), Contrast: OMNIPAQUE 350 (LOCM), 70 milliliter, Intravenous (accession [id number]) TECHNIQUE: Multi-detector CT angiography head and neck [...] Electronically signed by:Jayashree Lin M.D.. Transcribed by: [email or web address], User Resident: Electronically Signed by: JAYASHREE LIN @ 03/17/2017 06:24 PM Normal [facility] Comment on above: Order Comment: Other , right weakness left gaze pref CTA NECKon 03-17-2017 CTA NECK [facility] Jzzbwclpe[address] [place] [address] Patient Name: REMINGTON BARKER : 1955Sex: MAge: Race: WhiteMRN: [id number]. Location: EMERPatient Status: EVisit #: [id number] Date: 03/17/2017 5:20:00 PMCompleted Date: 03/17/2017 06:15 PMRequesting Provider: DONNA ADKINS Attending Provider: DONNA ADKINS Report Copy To: Signs & Symptoms: OtherHistory: Patient history not availableComments: right weakness left gaze pref, aphasiaExam: CTA NECKAccession #: [id number] CT BRAIN PERFUSION, CTA NECK 03/17/2017 6:15 PM EDT SIGNS AND SYMPTOMS: Stroke alert, rt side weakness with aphasia today. QUESTION FOR THE RADIOLOGIST: Other, right weakness left gaze pref CONTRAST: Contrast: OMNIPAQUE 350 (LOCM), 50 milliliter, Intravenous (accession [id number]), Contrast: OMNIPAQUE 350 (LOCM), 70 milliliter, Intravenous (accession [id number]) TECHNIQUE: Multi-detector CT angiography head and neck [...] Electronically signed by:Jayashree Lin M.D.. Transcribed by: [email or web address], User Resident: Electronically Signed by: JAYASHREE LIN @ 03/17/2017 06:24 PM Normal [facility] Comment on above: Order Comment: right weakness left gaze pref, aphasia HEMOGLOBIN A1Con 03-17-2017 Glucose mass conc 177 mg/dL High 70-126 [facility] Comment on above: Order Comment: Yes: Add to Previous draw if able Performed By: #### 5 0103 ####[facility].[address] Hemoglobin A1c/Hemoglobin.tota l mass fraction (Bld) 7.8 % High 4.0-6.0 [facility] Comment on above: Order Comment: Yes: Add to Previous draw if able Performed By: #### 5 0103 ####[facility].[address] KEPPRA ILon 03-17-2017 [place] Normal [facility] KEPPRA 3 ug/mL Normal [facility] Comment on above: Result Comment: A re ference range for Keppra has not been well established. The proposed therapeutic range for seizure control is 6-46 ug/mL. Pharmacokinetics of Keppra are affected by renal function. The relationship between serum concentrations and toxicity is not known. LACTATE BLOODon 03-17-2017 Lactate 1.1 mmol/L Normal .5-2.2 [facility] Comment on above: Performed By: #### 1 0054 ####[place] [id number] [facility].[address] MAGNESIUM BLOODon 03-17-2017 Magnesium 2.2 mg/dL Normal 1.9-2.7 [facility] Comment on above: Performed By: #### 0 0121, [id number], 34859, [id number] ####[facility].[place], [place] [address] [place] [address] MRI BRAIN WO CONTRASTon 02-22 MRI BRAIN WO [facility]AST [facility] [address] [place] [address] Patient Name: REMINGTON BARKER : 1955Sex: MAge: Race: WhiteMRN: [id number]. Location: EMERPatient Status: IVisit #: [id number] Date: 03/17/2017 6:35:00 PMCompleted Date: 03/17/2017 08:48 PMRequesting Provider: DONNA ADKINS Attending Provider: DONNA ADKINS Report Copy To: Signs & Symptoms: AphasiaHistory: Patient history not availableComments: R/O CVA, aphasia left preference right weaknessExam: MRI BRAIN WO CONTRASTAccession #: [id number] MRI BRAIN WO CONTRAST 03/17/2017 8:48 PM EDT SIGN AND SYMPTOMS: Aphasia TECHNOLOGIST COMMENTS: Patient found unresponsive by neighbor earlier today. Transfer from [facility]. Patient has right side weakness and [...] cells Electronically signed by:Ibrahima Garcia. Transcribed by: [email or web address], User Resident: Electronically Signed by: IBRAHIMA GARCIA @ 03/18/2017 11:02 AM Normal [facility] Comment on above: Order Comment: Other , right weakness left gaze pref PHOSPHORUS BLOODon 7 Phosphate 3.2 mg/dL Normal 2.5-5.0 [facility] Comment on above: Performed By: #### 0 0121, [id number], 75690, 67991 ####[facility].[address] TSHon 03-17-2017 Thyroid stimulating hormone (TSH) 0.85 MICRO-IU/ML Normal 0.34-5.60 [facility] Comment on above: Performed By: #### 0 0121, [id number], 81422, 28654 ####[facility] Vital Signs Date Time Vital Sign Value Performing Clinician Facility 12-31-2023 08:43-0400 Body height 170.18 cm [facility] [place] [facility] 12-31-2023 08:43-0400 Body mass index (BMI) [Ratio] 27.6 kg/m2 [facility] 12-31-2023 08:43-0400 Body weight 79.94 kg [facility] [place] [facility] 12-31-2023 08:43-0400 Diastolic blood pressure 89 mm[Hg] [facility] 12-31-2023 08:43-0400 Heart rate 71 /min [facility] [place] [facility] 12-31-2023 08:43-0400 Respiratory rate 12 /min [facility] 12-31-2023 08:43-0400 Systolic blood pressure 139 mm[Hg] [facility] 12-22-2023 10:20-0400 Blood Pressure Location Chris NOONAN [facility] 12-22-2023 10:20-0400 Diastolic blood pressure 74 mm[Hg] Chris NOONAN [facility] 12-22-2023 10:20-0400 Heart rate 69 /min Chris NOONAN [facility] 12-22-2023 10:20-0400 Respiratory rate 16 /min Chris NOONAN [facility] 12-22-2023 10:20-0400 Systolic blood pressure 139 mm[Hg] Chris NOONAN [facility] 09-25-2023 09:05-0400 Body height 170.18 cm [facility] [place] [facility] 09-25-2023 09:05-0400 Body mass index (BMI) [Ratio] 28 kg/m2 [facility] 09-25-2023 09:05-0400 Body weight 81.36 kg [facility] [place] [facility] 09-25-2023 09:05-0400 Diastolic blood pressure 82 mm[Hg] [facility] 09-25-2023 09:05-0400 Heart rate 67 /min [facility] [place] [facility] 09-25-2023 09:05-0400 Respiratory rate 12 /min [facility] 09-25-2023 09:05-0400 Systolic blood pressure 131 mm[Hg] [facility] 12-18-2022 09:00-0400 Body height 170.18 cm Gasper Thurman Other [employer] [facility] [employer] Other 12-18-2022 09:00-0400 Body mass index (BMI) [Ratio] 28.69 kg/m2 Gasper Ball Other [employer] Other 12-18-2022 09:00-0400 Body weight 83.1 kg Gasper Ball Other [employer] Other 12-18-2022 09:00-0400 Diastolic blood pressure 88 mm[Hg] Gasper Ball Other [employer] Other 12-18-2022 09:00-0400 Respiratory rate 12 /min Gasper Ball Other [employer] Other 12-18-2022 09:00-0400 Systolic blood pressure 139 mm[Hg] Gasper Ball Other [employer] Other 09-17-2022 10:00-0400 Body height 170.18 cm Gasper Ball Other [employer] Other 09-17-2022 10:00-0400 Body mass index (BMI) [Ratio] 29.29 kg/m2 Gasper Ball Other [employer] Other 09-17-2022 10:00-0400 Body weight 84.82 kg Gasper Ball Other [employer] Other 09-17-2022 10:00-0400 Diastolic blood pressure 73 mm[Hg] Gasper Ball Other [employer] Other 09-17-2022 10:00-0400 Respiratory rate 12 /min Gasper Ball Other [employer] Other 09-17-2022 10:00-0400 Systolic blood pressure 119 mm[Hg] Gasper Ball Other [employer] Other Encounters Encounter Date Encounter Type Care Provider Facility Start: 04-09-2024 ambulatory Chris Singh ty:RADHA Fuentes Start: 03-29-2024 ambulatory Chris Nicholasi ty:[id number] Start: 01-21-2024 End: 01-21-2024 Patient encounter procedure DO Gasper Thurman Work Phone: [facility] [place] Work Phone: Start: 01-21-2024 End: 01-21-2024 ambulatory DO Gasper Thurman Work Phone: [facility] Work Phone: Start: 12-31-2023 End: 12-31-2023 ambulatory [facility] Work Phone: Start: 12-31-2023 End: 12-31-2023 Patient encounter procedure [facility] Work Phone: Start: 12-22-2023 End: 12-22-2023 ambulatory Chriskristi NOONAN Facility:[facility] Start: 12-22-2023 End: 12-22-2023 Patient encounter procedure [facility] Start: 11-14-2023 ambulatory Chriskristi NOONAN Facility :[facility]HA [facility] Start: 11-11-2023 Non-patient / Non-visit [facility] Work Phone: Start: 10-28-2023 End: 10-28-2023 ambulatory NBA CONTRERAS Not Available Start: 10-03-2023 Non-patient / Non-visit [facility] Work Phone: Start: 09-25-2023 End: 09-25-2023 ambulatory [facility] Work Phone: Start: 09-25-2023 End: 09-25-2023 Patient encounter procedure [facility] Work Phone: Start: 06-30-2023 End: 06-30-2023 ambulatory Gasper Thurman Other [employer] Other Start: 06-30-2023 Telephone encounter Gasper Thurman [facility] Start: 06-22-2023 End: 06-22-2023 ambulatory Gasper Thurman Other [employer] Other Start: 06-22-2023 Telephone encounter Gasper Cuca [facility] Start: 06-05-2023 End: 06-05-2023 ambulatory Gasper Thurman Other [employer] Other Start: 06-05-2023 Telephone encounter Gasper Thurman [facility] Start: 03-18-2023 End: 03-18-2023 ambulatory Gasper Thurman Other [employer] Other Start: 03-18-2023 Telephone encounter Gasper Cuca [facility] Start: 12-18-2022 End: 12-18-2022 ambulatory Gasper Thurman Other [employer] Other Start: 12-18-2022 Office outpatient vi sit 25 minutes Gasper Thurman [facility] Start: 10-17-2022 End: 10-18-[address] GASPER THURMAN Facility:[facility] Start: 09-17-2022 End: 09-17-2022 ambulatory Gasper Thurman Other [employer] Other Start: 09-17-2022 Encounter for genera l adult medical examination without abnormal findings Gasper Thurman [facility] Start: 09-17-2022 Periodic preventive med est patient 65yrs& older Gasper Thurman [facility] Start: 09-15-2022 Encounter for genera l adult medical examination without abnormal findings DR GASPER THURMAN [facility] Start: 09-12-2022 End: 09-13-[address] GASPER THURMAN Facility:[facility] Start: 09-12-2022 End: 09-13-2022 Encounter for general adult medical examination without abnormal findings DR GASPER THURMAN Facility:[facility] Start: 06-20-2022 End: 06-20-[address] CADENCE TOHRNTON Facility:[facility] Start: 06-11-2022 End: 06-12-[address] GASPER THURMAN Facility:[facility] Start: 03-13-2022 Adult health examination Gasper Thurman Other [employer] Other Start: 03-08-2022 End: 03-09-[address] GASPER THURMAN Facility:[facility] Start: 11-07-2021 Patient encounter procedure [facility] Provider [facility] Department Start: 01-30-2021 End: 01-31-2021 ambulatory UNKNOWN PROVIDER Facility:[facility] Start: 01-12-2021 End: 01-12-2021 ambulatory UNKNOWN PROVIDER Facility:[facility] Start: 01-08-2021 End: 01-09-2021 ambulatory [facility] Start: 01-08-2021 End: 01-08-2021 Subsequent hospital visit by physician [facility] Start: 01-01-2021 End: 01-02-2021 ambulatory [facility] Start: 01-01-2021 End: 01-01-2021 Subsequent hospital visit by physician [facility] Start: 12-22-2020 ambulatory UNKNOWN PROVIDER Facili ty:[facility] Start: 12-21-2020 ambulatory UNKNOWN PROVIDER Facili ty:[facility] Start: 12-20-2020 ambulatory UNKNOWN PROVIDER Facili ty:[facility] Start: 12-18-2020 ambulatory UNKNOWN PROVIDER Facili ty:[facility] Start: 12-17-2020 ambulatory UNKNOWN PROVIDER Facili ty:[facility] Start: 12-15-2020 ambulatory UNKNOWN PROVIDER Facili ty:[facility] Start: 12-14-2020 ambulatory UNKNOWN PROVIDER Facili ty:[facility] Start: 12-13-2020 ambulatory NESTOR BROOKS Facilit y:[facility] Start: 12-11-2020 End: 12-11-2020 ambulatory UNKNOWN PROVIDER Facility:[facility] Start: 12-10-2020 ambulatory NESTOR BROOKS Facilit y:[facility] Start: 12-08-2020 End: 12-08-2020 ambulatory NESTOR BROOKS Facility:[facility] Start: 12-08-2020 End: 12-28-2020 Evaluation and management of inpatient IP PHYSICAL THERAPY SERVICE REQUEST [facility] Start: 03-17-2017 End: 03-28-2017 Evaluation and management of inpatient GASPER THURMAN Facility:[facility] Procedures Date Procedure Procedure Detail Performing Clinician Start: 09-12-[address] DAVIS [place] Comment on above: Performed By: #### P [facility] ####[facility] [address] [place], [place] [address]KnLionel Gore Start: 01-08-2021 Comprehensive metabo lic panel Yuko Hunt MD Work Phone: Start: 01-01-2021 Comprehensive metabo lic panel Yuko Hunt MD Work Phone: Start: 12-08-2020 Perq drainage pleura insert cath w/imaging Chris NOONAN Start: 11-27-2020 Exploratory laparotomy Chris NOONAN Start: 03-19-2017 Drainage of Spinal C anal, [...] OF ARTERIAL SATURATION, PERIPHERAL, PERC APPROACH ALEXI COWAN DIN Start: 03-18-2017 RESPIRATORY VENTILAT ION, GREATER THAN 96 CONSECUTIVE HOURS CHULA HEREDIA Start: 03-18-2017 Ultrasonography of R ight Jugular Veins, Guidance YUKO THORNE Start: 03-17-2017 MEASUREMENT OF SILVERSMITH APPRENTICE E LECTR ACTIVITY, NURSING ASSISTANTS TEACHER APPROACH ENRIQUE OSORIO Start: 03-17-2017 MONITORING OF SILVERSMITH APPRENTICE EL ECTR ACTIVITY, NURSING ASSISTANTS TEACHER APPROACH HOA CHANEL Start: 01-23-2017 General examination of patient Gasper Thurman Other Cardiac catheter (ph ysical object) Chris NOONAN Colonoscopy Chris NOONAN Depression screening Cindi Thurman Other Screening for malign ant neoplasm of colon Gasper Thurman Other Plan of Treatment Date Care Activity Detail Author Start: 01-21-2024 MR Prostate WO and W contrast IV [facility] Start: 01-21-2024 MR prostate wo/w con MR prostate wo/w con [facility] Start: 02-21-2022 Influenza vaccination INFLUENZA (Season Ended) [facility] Start: 01-08-2022 Creatinine measurement Creatinine monitoring [employer] Phone: Start: 01-08-2022 Potassium monitoring Potassium monitoring [facility] Phone: Start: 01-01-2022 Creatinine measurement Creatinine monitoring [facility] Phone: Start: 01-01-2022 Potassium monitoring Potassium monitoring [employer] Phone: Start: 2021 ADVANCE DIRECTIVE DISCUSSION ADVANCE DIRECTIVE DISCUSSION [facility] Start: 2021 PNEUMOVAX AGE 65 AND OVER WITH 5YR LOOKBACK (#1) PNEUMOVAX AGE 65 AND OVER WITH 5YR LOOKBACK (#1) [facility] Start: 02-21-2021 Influenza vaccination Flu vaccine (#1) [employer] [employer] Phone: Start: 2011 PROSTATE CANCER SCREENING DISCUSSION PROSTATE CANCER SCREENING DISCUSSION [facility] Start: 2006 Shingles Vaccine (1 of 2) Shingles Vaccine (1 of 2) [employer] Phone: Start: 2006 SHINGRIX VACCINE (1 of 2) SHINGRIX VACCINE (1 of 2) [facility] Start: 2001 COLOGUARD (FIT-DNA) COLOGUARD (FIT-DNA) [facility] Start: 2001 Colonoscopy COLONOSCOPY [facility] Start: 2001 COLORECTAL CANCER SCREENING COLORECTAL CANCER SCREENING [facility] Start: [address] COLONOGRAPHY [facility] Start: 2001 DIABETES SCREEN DIABETES SCREEN [facility] Start: 2001 FECAL OCCULT BLOOD FECAL OCCULT BLOOD [facility] Start: 2001 Screening for malignant neoplasm of colon Colon cancer screen colonoscopy [employer] Phone: Start: 2001 SIGMOIDOSCOPY SIGMOIDOSCOPY [facility] Start: 1991 LIPID SCREEN LIPID SCREEN [facility] Start: 1975 DTaP/Tdap/Td vaccine (1 - Tdap) DTaP/Tdap/Td vaccine (1 - Tdap) [employer] Phone: Start: 1975 Urine microalbumin profile DTAP,TDAP,TD (1 - Tdap) [facility] Start: 1974 Diabetic microalbuminuria test Diabetic microalbuminuria test [employer] Phone: Start: 1974 HEPATITIS C SCREENING HEPATITIS C SCREENING [facility] Start: 1974 HIV SCREENING HIV SCREENING [facility] Start: 1971 HIV screening HIV screen [employer] Phone: Start: 1968 Adult depression screening assessment DEPRESSION SCREENING [facility] Start: 1968 COVID-19 Vaccine (1) COVID-19 Vaccine (1) [employer] [employer] Phone: Start: 1966 Diabetic foot examination Diabetic foot exam [facility] Phone: Start: 1966 Diabetic retinal exam Diabetic retinal exam [facility] Phone: Start: 1966 Hemoglobin A1c measurement A1C test (Diabetic or Prediabetic) [facility] [employer] Phone: Start: 1966 Lipid panel Lipid screen [facility] Phone: Start: 1962 Pneumococcal 0-64 years Vaccine (1 of 2 - PPSV23) Pneumococcal 0-64 years Vaccine (1 of 2 - PPSV23) [employer] [employer] Phone: Start: 1961 COVID-19 VACCINE (#1) COVID-19 VACCINE (#1) [facility] Start: 1956 Hepatitis C screening Hepatitis C screen [employer] Phone: [facility] Immunizations Immunization Date Immunization Notes Care Provider Fa cility 07-26-2020 COVID-19 Vaccine Mod connor - Documentation Purposes Only Gasper Thurman Other [facility] 06-27-2020 COVID-19 Vaccine Mod connor - Documentation Purposes Only Gasper Thurman Other [facility] Payers Date Payer Category Payer Self-pay 2023 Unknown [id number] 2022 Blue Cross Blue Shield [id number] 2020 Unknown MMO MMO [employer] [id number] 2020-Present [phone] [address] [place] [address] PPO [id number] 2017 Unknown [id number] 2016 Unknown [id number] 1955 Unknown [id number] 2.16.840.1.683165.3.579.2.1 73 1956 Unknown [id number] 2.16.840.1.474630.3.579.2.1 73 1956 Unknown [id number] 2.16.840.1.697658.3.579.2.7 32 1956 Unknown [id number] 2.16.840.1.286325.3.579.2.7 32 1956 Unknown [id number] 2.16.840.1.615569.3.579.2.7 32 1956 Unknown [id number] 2.16.840.1.454687.3.579.2.7 32 1956 Unknown [id number] 2.16.840.1.947044.3.579.2.7 32 1956 Unknown [id number] 2.16.840.1.768666.3.579.2.7 32 1956 Unknown [id number] 2.16.840.1.885745.3.579.2.7 32 1956 Unknown [id number] 2.16.840.1.214856.3.579.2.7 32 1956 Unknown [id number] 2.16.840.1.386628.3.579.2.7 32 1956 Unknown [id number] 2.16.840.1.191718.3.579.2.7 32 1956 Unknown [id number] 2.16.840.1.894686.3.579.2.7 1956 Unknown [id number] 2.16.840.1.991286.3.579.2.7 32 1956 Unknown [id number] 2.16840.1.852626.3.579.2.7 1956 Unknown [id number] 2.16.840.1.573793.3.579.2.7 1956 Unknown [id number] 2.16.840.1.542093.3.579.2.7 32 1956 Unknown [id number] 2.16.840.1.070374.3.579.2.7 1956 Unknown [id number] 2.16.840.1.194126.3.579.2.7 32 1956 Unknown [id number] 2.16.840.1.612795.3.579.2.7 1956 Unknown [id number] 2.16.840.1.710384.3.579.2.7 1956 Unknown [id number] 2.16.840.1.809109.3.579.2.7 32 1956 Unknown [id number] 2.16.840.1.813147.3.579.2.7 32 1956 Unknown [id number] 2.16.840.1.757714.3.579.2.7 32 1956 Unknown [id number] 2.16.840.1.480646.3.579.2.7 32 1956 Unknown [id number] 2.16.840.1.322355.3.579.2.5 93 1956 Unknown [id number] 2.16.840.1.971700.3.579.2.5 93 1956 Unknown [id number] 2.16.840.1.180817.3.579.2.5 93 1956 Unknown [id number] 2.16.840.1.709211.3.579.2.5 93 1956 Unknown [id number] 2.16.840.1.154565.3.579.2.5 93 1956 Unknown [id number] 2.16.840.1.106917.3.579.2.1 259 1956 Unknown [id number] 2.16.840.1.050946.3.579.2.7 27 1956 Unknown [id number] 2.16.840.1.314935.3.579.2.7 27 1956 Unknown [id number] 2.16.840.1.486749.3.579.2.7 27 Medicare Medicare-OP No Part B [id number] Unknown [id number] 2.16.840.1.215583.3.579.2.5 31 Social History Date Type Detail Facility Start: 03-28-2017 [facility] Start: 1955 Sex Assigned At Not on file M [facility] Phone: Sex Assigned At [facility] Start: 1955 Sex Assigned At Male [facility] Start: 12-22-2023 Tobacco smoking status Never s moked tobacco (finding) [facility] Tobacco smoking status Never [facility] Functional Status Date Assessment Result Facility 12-22-2023 Functional Status N/A [facility] Clinical Notes 12-08-2020 to 12-22-2023 Note Date & Type Note Facility 12-22-2023 Hospital Discharge instructions Patient Education 12/22/2023 10:55:16 Prostate Cancer Screening Prostate Cancer Screening Prostate cancer screening is testing that is done to check for the presence of prostate cancer in men. The prostate gland is a walnut-sized gland that is located below the bladder and in front of the rectum in males. The function of the prostate is to add fluid to semen during ejaculation. Prostate cancer is one of the most common types of cancer in men. Who should have prostate cancer screening? Screening recommendations vary based on age and other risk factors, as well as between the professional organizations who make the recommendations. In general, screening is recommended if: You are age 50 to 70 and have an average risk for prostate cancer. You should talk with your health care provider about your need for screening and how often screening should be done. Because most prostate cancers are slow growing and will not cause , screening in this age group is generally reserved for men who have a 10- to 15-year life expectancy. You are younger than age 50, and you have these risk factors: ?Having a father, brother, or uncle who has been diagnosed with prostate cancer. The risk is higher if your family member's cancer occurred at an early age or if you have multiple family members with prostate cancer at an early age. ?Being a male who is Black or is of [place] or sub-Saharan descent. In general, screening is not recommended if: You are younger than age 40. You are between the ages of 40 and 49 and you have no risk factors. You are 70 years of age or older. At this age, the risks that screening can cause are greater than the benefits that it may provide. If you are at high risk for prostate cancer, your health care provider may recommend that you have screenings more often or that you start screening at a younger age. How is screening for prostate cancer done? The recommended prostate cancer screening test is a blood test called the prostate-specific antigen (PSA) test. PSA is a protein that is made in the prostate. As you age, your prostate naturally produces more PSA. Abnormally high PSA levels may be caused by: Prostate cancer. An enlarged prostate that is not caused by cancer (benign prostatic hyperplasia, or BPH). This condition is very common in older men. A prostate gland infection (prostatitis) or urinary tract infection. Certain medicines such as male hormones (like testosterone) or other medicines that raise testosterone levels. A rectal exam may be done as part of prostate cancer screening to help provide information about the size of your prostate gland. When a rectal exam is performed, it should be done after the PSA level is drawn to avoid any effect on the results. Depending on the PSA results, you may need more tests, such as: A physical exam to check the size of your prostate gland, if not done as part of screening. Blood and imaging tests. A procedure to remove tissue samples from your prostate gland for testing (biopsy). This is the only way to know for certain if you have prostate cancer. What are the benefits of prostate cancer screening? Screening can help to identify cancer at an early stage, before symptoms start and when the cancer can be treated more easily. There is a small chance that screening may lower your risk of dying from prostate cancer. The chance is small because prostate cancer is a slow-growing cancer, and most men with prostate cancer from a different cause. What are the risks of prostate cancer screening? The main risk of prostate cancer screening is diagnosing and treating prostate cancer that would never have caused any symptoms or problems. This is called overdiagnosisand overtreatment. PSA screening cannot tell you if your PSA is high due to cancer or a different cause. A prostate biopsy is the only procedure to diagnose prostate cancer. Even the results of a biopsy may not tell you if your cancer needs to be treated. Slow-growing prostate cancer may not need any treatment other than monitoring, so diagnosing and treating it may cause unnecessary stress or other side effects. Questions to ask your health care provider When should I start prostate cancer screening? What is my risk for prostate cancer? How often do I need screening? What type of screening tests do I need? How do I get my test results? What do my results mean? Do I need treatment? Where to find more information The [place] [employer]: www.cancer.org [place] [employer]: www.auanet.org Contact a health care provider if: You have difficulty urinating. You have pain when you urinate or ejaculate. You have blood in your urine or semen. You have pain in your back or in the area of your prostate. Summary Prostate cancer is a common type of cancer in men. The prostate gland is located below the bladder and in front of the rectum. This gland adds fluid to semen during ejaculation. Prostate cancer screening may identify cancer at an early stage, when the cancer can be treated more easily and is less likely to have spread to other areas of the body. The prostate-specific antigen (PSA) test is the recommended screening test for prostate cancer, but it has associated risks. Discuss the risks and benefits of prostate cancer screening with your health care provider. If you are age 70 or older, the risks that screening can cause are greater than the benefits that it may provide. This information is not intended to replace advice given to you by your health care provider. Make sure you discuss any questions you have with your health care provider. Document Revised: 12/03/2021 Document Reviewed: 12/03/2021 [employer] Patient Education 2022 [employer]. Follow Up Care 11/20/2023 10:45:27 With:SHAISTA NARAYANAN, Chris Quinn, URL Address: [facility] [address], [place] [address]- [phone] When: Unknown [facility] 12-22-2023 Note Urology Office/Clini c Note Chief Complaint Referral *Elevated PSA HPI Staff Evaluation requested by Dr Gasper Thurman due to elevated PSA. Pt is a new pt. Never before seen in our office. (Verified on DA) Pt is deaf, accompanied by his brother today, who is chief historian. Per referral papers pt's yearly wellness exam PSA was elevated, he was then prescribed 4wks of abx. Repeat PSA did drop. Pt denies all urinary sx. Does get up 2x/night to void. Not bothersome. Unsure on family Hx of Prostate Cancer. Father dies of cancer, specific kind is unknown. PSA: 01/27/17 - 0.94 02/21/20 - 1.40 09/07/21 - 2.25 09/12/22 - 1.72 10/03/23 - 5.19 11/11/23 - 4.2 & 13.3% History of Present Illness Tests reviewed: reviewed referral records, PSAs I have reviewed the previous health record information and history for this patient from external providers. I have reviewed and verified the staff HPI to be accurate for this encounter. Review of Systems PHQ Score Initial Depression Screen Score: 0 SCORE ROS - Provider Constitutional: denies weight loss, denies hot flashes. Eyes: denies eye problems. Gastrointestinal: denies nausea, denies vomiting. Cardiovascular: denies chest pain or angina. Integumentary: no dryness Musculoskeletal: denies musculoskeletal symptoms. ENMT: denies otolaryngeal symptoms. Respiratory: no shortness of breath. Heme/Lymph: denies easy bleeding tendency, denies easy bruising tendency. Psychiatric: no confusion, no anxiety. Genitourinary: See HPI. Physical Exam Vitals & Measurements HR: 69(Peripheral) RR: 16 BP: 139/74 HT: 70 in HT: 177 cm WT: 84 kg WT: 184.8 lb BMI: 26.81 General Appearance: alert, no distress, well nourished, well developed male. Prostate: normal prostate, estimated weight 40 gms, yes hard nodule observed at R apex. Assessment/Plan Remington is a 68 yo male new pt referred by Dr Gasper Thurman for elevated PSA. Pt is deaf, here with his brother ( Ed ) who serves as primary historian. 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 1. Elevated PSA (R97.20: Elevated prostate specific antigen [PSA]) PSA: 01/27/17 - 0.94 02/21/20 - 1.40 09/07/21 - 2.25 09/12/22 - 1.72 10/03/23 - 5.19 11/11/23 - 4.2 & 13.3% (after 4 wk course of abx per PCP) No sample provided for UA today. Brother denies any hx of UTIs. No trouble with urination. No gross hematuria. Unsure of family hx of prostate cancer. Pt's brother states father passed from metastatic cancer (unsure of specific type, believe lung cancer given extensive smoking hx). BASIM: 40g, indurate R apex PSA has increased significantly in the last year. Abx course did not have a significant effect on level. Advised pt an elevated PSA could indicate prostate cancer, prostate infection, prostate inflammation without infection, prostate manipulation, or benign prostate enlargement (BPH). Discussed the importance of the rate of PSA rise. The options for management have been discussed, including close monitoring of the PSA over time vs prostate MRI which could lead to a fusion biopsy vs prostate biopsy. -Attempt to give urine sample prior to leaving office today -Schedule prostate MRI @ [facility] [place]. Will call pt with results. -Will schedule TRUS of Prostate with Biopsy after MRI. The procedural risks, benefits, details, and treatment alternatives have been discussed with the patient. These include minimal to severe bleeding, infection, blood in the semen, inability to urinate, and severe infection requiring hospitalization and IV antibiotics, among others. Full informed consent has been obtained. Will order Local anesthesia. 2. Abnormal prostate exam (R39.89: Other symptoms and signs involving the genitourinary system) See #1. Follow-up With When Contact Information SHAISTA NARAYANAN, Chris Quinn, URL [facility] [address], [place] [address]- [phone] Additional Instructions: sched prostate MRI and biopsy Patient Education Prostate Cancer Screening I, Lamar Dupree, personally scribed for Dr. Noonan on 12/22/2023 11:04:56. . Documentation recorded by the scribe, Lamar Dupree, accurately reflects the services(s) I performed and decisions made by me. Authenticated by Dr. Noonan on 12/22/2023 11:09:28. Problem List/Past Medical History Ongoing Abnormal prostate exam Diabetes mellitus, type 2 Elevated PSA Hyperlipidemia Hypertension Seizure disorder Historical No qualifying data Procedure/Surgical History Pleural drainage, percutaneous, with insertion of indwelling catheter; with imaging guidance (12/08/2020), Exploratory laparotomy (11/27/2020), Cardiac catheter, Colonoscopy. Medications aspirin 81 mg Oral EC Tab, 81 mg= 1 tab(s), Oral, Daily atorvastatin 80 mg Tab, 80 mg= 1 tab(s), Oral, Bedtime carvedilol 6.25 mg Tab, 6.25 mg= 1 tab(s), Oral, BID divalproex sodium 500 mg ER Tab, Oral glimepiride 2 mg Tab, 2 mg= 1 tab(s), Oral (more content not included)... [facility] Comment on above: Result Comment: Elec tronically Signed By: Chris NOONAN MD\.br\Date and Time Signed: 12/22/23 11:09 EDT\.br\Electronically Co-Signed By: Lamar Dupree\.br\Date and Time Co-Signed: 12/22/23 11:05 EDT 12-22-2023 Note Patient Education Oncology Prostate Cancer Screening Prostate cancer screening is testing that is done to check for the presence of prostate cancer in men. The prostate gland is a walnut-sized gland that is located below the bladder and in front of the rectum in males. The function of the prostate is to add fluid to semen during ejaculation. Prostate cancer is one of the most common types of cancer in men. Who should have prostate cancer screening? Screening recommendations vary based on age and other risk factors, as well as between the professional organizations who make the recommendations. In general, screening is recommended if: ? You are age 50 to 70 and have an average risk for prostate cancer. You should talk with your health care provider about your need for screening and how often screening should be done. Because most prostate cancers are slow growing and will not cause , screening in this age group is generally reserved for men who have a 10- to 15-year life expectancy. ? You are younger than age 50, and you have these risk factors: ? Having a father, brother, or uncle who has been diagnosed with prostate cancer. The risk is higher if your family member's cancer occurred at an early age or if you have multiple family members with prostate cancer at an early age. ? Being a male who is Black or is of [place] or sub-Saharan descent. In general, screening is not recommended if: ? You are younger than age 40. ? You are between the ages of 40 and 49 and you have no risk factors. ? You are 70 years of age or older. At this age, the risks that screening can cause are greater than the benefits that it may provide. If you are at high risk for prostate cancer, your health care provider may recommend that you have screenings more often or that you start screening at a younger age. How is screening for prostate cancer done? The recommended prostate cancer screening test is a blood test called the prostate-specific antigen (PSA) test. PSA is a protein that is made in the prostate. As you age, your prostate naturally produces more PSA. Abnormally high PSA levels may be caused by: ? Prostate cancer. ? An enlarged prostate that is not caused by cancer (benign prostatic hyperplasia, or BPH). This condition is very common in older men. ? A prostate gland infection (prostatitis) or urinary tract infection. ? Certain medicines such as male hormones (like testosterone) or other medicines that raise testosterone levels. A rectal exam may be done as part of prostate cancer screening to help provide information about the size of your prostate gland. When a rectal exam is performed, it should be done after the PSA level is drawn to avoid any effect on the results. Depending on the PSA results, you may need more tests, such as: ? A physical exam to check the size of your prostate gland, if not done as part of screening. ? Blood and imaging tests. ? A procedure to remove tissue samples from your prostate gland for testing (biopsy). This is the only way to know for certain if you have prostate cancer. What are the benefits of prostate cancer screening? ? Screening can help to identify cancer at an early stage, before symptoms start and when the cancer can be treated more easily. ? There is a small chance that screening may lower your risk of dying from prostate cancer. The chance is small because prostate cancer is a slow-growing cancer, and most men with prostate cancer from a different cause. What are the risks of prostate cancer screening? The main risk of prostate cancer screening is diagnosing and treating prostate cancer that would never have caused any symptoms or problems. This is called overdiagnosisand overtreatment. PSA screening cannot tell you if your PSA is high due to cancer or a different cause. A prostate biopsy is the only procedure to diagnose prostate cancer. Even the results of a biopsy may not tell you if your cancer needs to be treated. Slow-growing prostate cancer may not need any treatment other than monitoring, so diagnosing and treating it may cause unnecessary stress or other side effects. Questions to ask your health care provider ? When should I start prostate cancer screening? ? What is my risk for prostate cancer? ? How often do I need screening? ? What type of screening tests do I need? ? How do I get my test results? ? What do my results mean? ? Do I need treatment? Where to find more information ? The [place] [employer]: www.cancer.org ? [place] [employer] Association: www.auanet.org Contact a health care provider if: ? You have difficulty urinating. ? You have pain when you urinate or ejaculate. ? You have blood in your urine or semen. ? You have pain in your back or in the area of your prostate. Summary ? Prostate cancer is a common type of cancer in men. The prostate gland is located below the bladder and in front of the rectum. (more content not included)... [facility] 06-22-2023 Evaluation note Encounter Date Diagnosis Assessment Notes May, Type 2 diabetes mellitus with hyperglycemia , without long-term current use of insulin (ICD-10 - E11.65) [facility] Other 12-14-2023 Evaluation note* Encounter Date Diagnosis Assessment Notes Treatment Notes Treatment Clinical Notes May, Type 2 diabetes mellitus with hyperglycemia, without long-term current use of insulin (ICD-10 - E11.65) [facility] Other 12-14-2023 Evaluation note* Encounter Date Diagnosis Assessment Notes Treatment Notes Treatment Clinical Notes May, Elevated cholesterol (ICD-10 - E78.00) May, Primary hypertension (ICD-10 - I10) [facility] Other 09-26-2023 Evaluation note* Encounter Date Diagnosis Assessment Notes Treatment Notes Treatment Clinical Notes Feb, Type 2 diabetes mellitus with hyperglycemia, without long-term current use of insulin (ICD-10 - E11.65) [facility] Other 06-28-2023 Evaluation note* Encounter Date Diagnosis [...] Neurology since his last OV, not changes [facility] Other 03-28-2023 Evaluation note* Encounter Date Diagnosis [...] w/ CRC screening. Colonoscopy due next year [facility] Other [id number] NotePROCEDURE: CT CSPINE WO CON COMPARISON: None. [...] Electronically authenticated by: CADENCE THORNTON Date: 2022-06-20 12:21[facility]12-29-2022 NotePROCEDURE: XR HAND LT MIN 3V COMPARISON: [...] Electronically authenticated by: CADENCE THORNTON Date: 2022-06-20 12:02[facility]07-08-2021 NoteThe [employer] [id number] NoteSW following for DC to SNF. There are no responses from the referrals that were sent yesterday in [facility]. SW will continue to follow for DC planning. SW aware pt is not medically cleared for DC at this time. YUNEIL Sanderson Social WorkThe Dr. Fred Stone, Sr. HospitalBundle It [id number] interpreter [id number] assisted with evaluating pt pain status and explaining plan of care. Pt denies pain and was instructed on the use of the BUSINESS RISK ANALYST administration. Pt also aware he will be going to Step down for continued monitoring.The Dr. [facility] HospitalaXess [id number] NoteOccupational Therapy AND Physical Therapy on 5C: Duplicate referrals received. Patient was evaluated 12/08/2020 with recommendation for d/c to acute rehab setting. OT AND PT will continue established POC. Sirena KUNZ OTR/L Pager# [phone] United Health [id number] NotePRE-PROCEDURE NOTE Procedure: ultrasound guided left pleural drain placement Indication: effusion/empyema Site of Procedure: left Site Marked pre-procedure: Yes Pre-Procedure Pain Ratin/10 Ron Quintero MD RadiologyThe Dr[address] [facility], Sr. HospitalBundle It SystemEvaluation + Plan note No data available for this section [facility] evaluation noteNo InformationSamaritan Healthcare Code71 Other Evaluation note* Diagnosis Onset Date Resolution Status Elevated cholesterol acute Hypertension acute Type 2 diabetes mellitus with hyperglycemia acute [facility] Work Phone: Evaluation note* Diagnosis Onset Date Resolution Status Elevated cholesterol acute Elevated PSA acute Hypertension acute Overweight acute Type 2 diabetes mellitus with hyperglycemia acute [facility] Work Phone: Hisypfw general Narrative - Reported* Type Description Date [...] EART 2016 Hospitalization History SEE SURGICAL HX [facility] Code71 Other Hisiakl general Narrative - Reported* Type Description Date [...] History COLONOSCOPY (repeat 2023) 2019 Surgical History [facility] 2016 Surgical History CARDIAC CATHETERIZATION, LEFT H EART 2016 Hospitalization History SEE SURGICAL HX [facility] Other Progress note No data available for this section [facility] [place] Summary Purpose Family History No Family History Records Found Relationship Condition Age at Onset Recorded Date/T elizabeth brother Malignant neoplasm Unknown Hypertension Unknown father Malignant neoplasm Unknown Not Specified History of stroke Unknown Relationship Condition Age at Onset Recorded Date/T elizabeth brother Malignant neoplasm Unknown Hypertension Unknown father Malignant neoplasm Unknown mother History of stroke Unknown Advance Directives No Advanced Directives Records FoundDocuments on File Type Date Recorded 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 Expl 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 ACP-Advance Directive ACP-Power of Conveyancer Advance Directive Response Recorded Date/ Time Advance Directives No July 14, 2023 6:53pm Chief Complaint and Reason for Visit Chief Complaint Wellness Reason for Visit Elevated cholesterol Hypertension Type 2 diabetes mellitus with hyperglycemia Chief Complaint 3 month follow up Reason for Visit Elevated cholesterol Elevated PSA Hypertension Overweight Type 2 diabetes mellitus with hyperglycemia Chief Complaint 3 month follow up r97.20 Reason for Visit Elevated cholesterol Elevated PSA Hypertension Overweight Type 2 diabetes mellitus with hyperglycemia Additional Source Comments (unrecognized sect ion and content) No Status Records FoundNo Status Records FoundNo Status Records FoundNo Status Records FoundNo Status Records FoundNo Status Records FoundNo Status Records FoundNo Status Records Found INFORMATION SOURCE (unrecogn ized section and content) DATE CREATED AUTHOR 12/16/2017 [facility] DATE CREATED AUTHOR AUTHOR'S ORGANIZ ATION 12/23/2020 [facility] DATE CREATED AUTHOR AUTHOR'S ORGANIZ ATION [facility] DATE CREATED AUTHOR AUTHOR'S ORGANIZ ATION 07/23/2021 [facility] DATE CREATED AUTHOR AUTHOR'S ORGANIZ ATION 10/21/2022 [facility] [place] [facility] DATE CREATED AUTHOR AUTHOR'S ORGANIZ ATION 10/29/2023 [facility] DATE CREATED AUTHOR AUTHOR'S ORGANIZ ATION 01/26/2024 [facility] DATE CREATED AUTHOR AUTHOR'S ORGANIZ ATION 02/14/2024 [facility] Source Comments (unrecognize d section and content) In the event this informatio n is protected by the Federal Confidentiality of Alcohol and Drug Abuse Patient Records regulations: The Federal rules restrict any use of the information to criminally investigate or prosecute any alcohol or drug abuse patient.[facility] Care Teams (unrecognized sec tion and content) Team Status: Active Member Role Status Dates Gasper Thurman DO Primary Care Provider Active Team Status: Active Member Role Status Dates Gasper Thurman DO Primary Care Provide r, Attending Provider Active Start: October 03, 2023 Team Status: Active Member Role Status Dates Gasper Thurman DO Primary Care Provide r, Attending Provider Active Start: November 11, 2023 Team Status: Inactive Member Role Status Dates Gasper Thurman DO Primary Care Provide r, Attending Provider Active Start: December 31, 2023 End: December 31, 2023 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 Start Date End Date Bambi Bah [address] [place] [phone] PCP - General Emergency Medicine 07/20/15 Team Status: Inactive Member Role Status Dates Gasper Thurman DO Primary Care Provide r, Attending Provider Active Start: September 25, 2023 End: September 25, 2023 Team Status: Inactive Member Role Status Dates Gasper Thurman DO Primary Care Provider Active Start: January 21, 2024 End: January 21, 2024 Chris Noonan MD Attending Provider Active St art: January 21, 2024 End: January 21, 2024 REASON FOR VISIT (unrecogniz ed section and content) 3 month Follow up3 month Fol low upLab WorkWellnessrefillRefillsNo InformationLab results Goals (unrecognized section [...] BE BASED ON THE PRIMARY CLINICAL RECORDS. [employer] [facility]. provides no warranty or guarantee of the accuracy or completeness of information in this document.
[2024-03-29 07:05] VITALS: BP 180/83; PULSE 59; TEMP 36.2; O2SAT 99
[2024-03-29] MEDS: GENTAMICIN SULFATE 80 MG/2 ML VIAL 120 MG IM (07:33)
--- NOTE | 2024-03-29 07:55 | US_ITS ---
The [address] [address] Patient Name: JAVY WHEELER MRN: [id number] date: 1955 Sex: M Assigned Patient Location: [facility] Current Patient Location: Accession/Order Number: [id number] Exam Date: 03/29/2024 07:56 Report Date: 03/29/2024 09:36 At the request of: MARK LAI Procedure: US prostate EXAMINATION: US prostate HISTORY: Elevated PSA COMPARISON: No relevant comparison available. TECHNIQUE: Ultrasound exam for the prostate with an endorectal transducer was performed utilizing real-time and color duplex Doppler sonography. FINDINGS: Prostate biopsy performed by Dr. Lai. The prostate gland is enlarged in size lobular in contour. Needle is seen traversing multiple portions of the prostate gland. PROSTATE SIZE: 4.4 x 4.5 x 3.2 US/US prostate IMPRESSION: Images from a prostate biopsy Electronically authenticated by: CADENCE THORNTON Date: 03/29/2024 09:36
[2024-03-29 08:44] VITALS: BP 165/74; BP 177/80; PULSE 59; PULSE 65; O2SAT 97; O2SAT 99
[2024-03-29] MEDS: LIDOCAINE HCL 1% 100 MG/10 ML MDV INJ (08:46)
[2024-03-29] MEDS: LIDOCAINE 2% JELLY 20 ML UR (08:46)
--- NOTE | 2024-03-29 09:02 | PM.URSON ---
Urology Surgery Operative Note Operative Note Procedure Date: 03/29/24 Time Out Performed: yes Pre-op Diagnosis: Elevated PSA and prostate induration Post-op Diagnosis: same as pre-op Procedures performed: 1. Transrectal ultrasound of the prostate. 2. Prostate needle biopsies Anesthesia: local and other (Ana-prostatic block) Primary Surgeon: Chris Lai Complications: None Estimated blood loss (mL): 5 Findings: No hypoechoic areas Specimens: 8 biopsies from the left side divided up into 4 levels. 9 biopsies from the right side. Indications for Procedures: This gentleman has a elevated PSA of 5.1. Just 6 years ago it was 0.9. He has induration in his right apex. His MRI is negative. He now presents for transrectal ultrasound with biopsies. He has signed an informed consent after risks were explained. Some of these include bleeding, infection, urosepsis, anesthesia to name a few. Detailed description of Procedure: The patient was kept on the rmiddleport bed and brought into the Endo suite. He was rotated into the left lateral decubitus position. Timeout was done by all parties in the room. We all agreed upon the patient's identification and the planned procedures for this patient. The rectum was swabbed with Betadine soaked gauze. 2% Xylocaine jelly was passed per rectum. The ultrasound probe was passed per rectum. The prostate was scanned in the transverse and sagittal views. The volume was calculated to be 36g. I then used 1% plain lidocaine and did a Wale prostatic block in the usual fashion. We then started doing needle biopsies going from the left base towards the apex. We divided it up into 4 levels and took 2 biopsies from each level. We then did a similar maneuver on the right side. At the R4 area we took 3 biopsies because this corresponded to the induration. The probe was then removed. He tolerated it well. He was then discharged to home. He was reminded to finish his antibiotic course. Also if he were to experience any fevers near 101 and/or shaking chills he was instructed to present to the emergency room for IV antibiotics.
--- NOTE | 2024-03-29 09:14 | PC.NURSE ---
PATIENT URINATED BLOOD TINGED URINE PRIOR TO DISCHARGE.
== END 2024-03-29 09:14 | disposition home or self-care (01) ==
PROVIDERS: PCP Internal Medicine; Visit Provider Urology
PROC: (CPT 55700; principal; 2024-03-29 08:00)
DX: R97.20 Elevated prostate specific antigen [PSA] (principal); H91.90 Unspecified hearing loss, unspecified ear; E11.9 Type 2 diabetes mellitus without complications; I10 Essential (primary) hypertension; E78.5 Hyperlipidemia, unspecified; G40.909 Epilepsy, unspecified, not intractable, without status epilepticus; R93.89 Abnormal findings on diagnostic imaging of other specified body structures; Z79.84 Long term (current) use of oral hypoglycemic drugs
CPT/HCPCS: 55700; 76872; J1580

== ENCOUNTER 2024-04-15 06:51 | Outpatient (OUT) | payer BC, SELFPAY ==
--- OUTSIDE RECORDS SUMMARY | 2024-04-15 06:55 | XMS_ITS | CCD ---
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 [facility] [address] [place] [address] Dr. Gaetano Gore Eosinophils/100 WBC (Bld) 1.5 % Normal 0.9-7.0 [facility] Comment on above: Performed By: #### C BC #### [facility] [address] [place] [address] Dr. Gaetano Gore Erythrocyte distribution width (RBC) [Ratio] 12.4 % Normal 11.0-15.0 [facility] Comment on above: Performed By: #### C BC #### [facility] [address] [place] [address] Dr. Gaetano Gore Hematocrit (Bld) [Volume fraction] 44.3 % Normal 42.0-54.0 [facility] Comment on above: Performed By: #### C BC #### [facility] [address] [place] [address] Dr. Gaetano Gore Hemoglobin (Bld) [Mass/Vol] 14.6 g/dL Normal 14.0-18.0 [facility] Comment on above: Performed By: #### C BC #### [facility] [address] [place] [address] Dr. Gaetano Gore IG # 0.03 10e3/ul Normal 0.00-0.[address] [facility] Comment on above: Performed By: #### C BC #### [facility] [address] [place] [address] Dr. Gaetano Gore IG % 0.5 % Normal 0.0-0.[address] [facility] Comment on above: Performed By: #### C BC #### [facility] [address] [place] [address] Dr. Gaetano Gore LYMPH # 1.7 103/ul Normal 1.2-3.[address] [facility] Comment on above: Performed By: #### C BC #### [facility] [address] [place] [address] Dr. Gaetano Gore Lymphocytes/100 WBC (Bld) 31.6 % Normal 20.5-60.[address] [facility] Comment on above: Performed By: #### C BC #### [facility] [address] [place] [address] Dr. Gaetano Gore MANUAL DIFF REQ NO Normal [facility] Comment on above: Performed By: #### C BC #### [facility] [address] [place] [address] Dr. Gaetano Gore MCH (RBC) [Entitic mass] 30.9 pg Normal 25.9-34.[address] [facility] Comment on above: Performed By: #### C BC #### [facility] [address] [place] [address] Dr. Gaetano Gore MCHC (RBC) [Mass/Vol] 33.0 g/dL Normal 29.9-35.[address] [facility] Comment on above: Performed By: #### C BC #### [facility] [address] [place] [address] Dr. Gaetano Gore MCV (RBC) [Entitic vol] 93.7 fL Normal 80.0-94.[address] [facility] Comment on above: Performed By: #### C BC #### [facility] [address] [place] [address] Dr. Gaetano Gore MONO # 0.5 103/ul Normal 0.3-0.[address] [facility] Comment on above: Performed By: #### C BC #### [facility] [address] [place] [address] Dr. Gaetano Gore Monocytes/100 WBC (Bld) 9.5 % Normal 1.7-12.[address] [facility] Comment on above: Performed By: #### C BC #### [facility] [address] [place] [address] Dr. Gaetano Gore NEUT # 3.1 103/ul Normal 1.4-6.[address] [facility] Comment on above: Performed By: #### C BC #### [facility] [address] [address] [address] Gaetano Gore Neutrophils/100 WBC (Bld) 56.4 % Normal 43.0-75.0 [facility] Comment on above: Performed By: #### C BC #### [facility] [address] [address] [address] Gaetano Gore Platelet mean volume (Bld) [Entitic vol] 9.2 fL Critically low 9.5-13.5 [facility] Comment on above: Performed By: #### C BC #### [facility] [address] [address] [address] Gaetano Gore PLT 141 103/ul Critically low 150-450 [facility] Comment on above: Performed By: #### C BC #### [facility] [address] [place] [address] Dr. Gaetano Gore RBC 4.73 106/ul Normal 4.70-6.10 [facility] Comment on above: Performed By: #### C BC #### [facility] [address] [address] [address] Gaetano Gore WBC 5.5 103/ul Normal 4.0-11.0 [facility] Comment on above: Performed By: #### C BC #### [facility] [address] [address] [address] Gaetano Gore GLYCOHEMOGLOBIN A1Con 2022 ADA RECOMMENDATION SEE BELOW Normal [facility] Comment on above: Result Comment: ADA RECOMMENDED LIMIT 4.0 - 6.0 ADA THERAPEUTIC TARGET < 7.0 ACTION SUGGESTED > 7.0 Performed By: #### A 1C #### [facility] [address] [place] [address] Dr. Gaetano Gore Glucose [Mass/Vol] 194 mg/dL Normal [facility] Comment on above: Performed By: #### A 1C #### [facility] [address] [place] [address] Dr. Gaetano Gore HbA1c (Bld) [Mass fraction] 8.4 % Critically high 4.5-6.2 [facility] Comment on above: Performed By: #### A 1C #### [facility] [address] [address] [address] Gaetano Gore LIPID PROFILEon 09-12-2022 CHOL-HDL RATIO NORM SEE BELOW Normal [facility] Comment on above: Result Comment: 3.3 - 4.4 LOW RISK 4.4 - 7.1 AVERAGE RISK 7.1 - 11.0 MODERATE RISK >11.0 HIGH RISK Performed By: #### L IPID, CMP, TSH #### [facility] [address] [address] [address] Gaetano Gore Cholesterol [Mass/Vol] 170 mg/dL Normal <=200 [facility] Comment on above: Performed By: #### L IPID, CMP, TSH #### [facility] [address] [address] [address] Gaetano Gore Cholesterol in HDL [Mass/Vol] 33 mg/dL Critically low 40-60 [facility] Comment on above: Performed By: #### L IPID, CMP, TSH #### [facility] [address] [address] [address] Gaetano Gore Cholesterol in LDL [Mass/Vol] 110.0 mg/dL Normal [facility] Comment on above: Performed By: #### L IPID, CMP, TSH #### [facility] [address] [address] [address] Gaetano Gore Cholesterol.total/C holesterol in HDL [Mass ratio] 5.2 {ratio} Normal [facility] Comment on above: Performed By: #### L IPID, CMP, TSH #### [facility] [address] [address] [address] Gaetano Gore HDL NORMAL > or = 60 mg/dl - LO W CARDIOVASCULAR RISK <40 mg/dl - HIGH CARDIOVASCULAR RISK Normal [facility] Comment on above: Performed By: #### L IPID, CMP, TSH #### [facility] [address] [place] [address] Dr. Gaetano Goer LDL CALC NORMAL SEE BELOW Normal [facility] Comment on above: Result Comment: <100 mg/dl OPTIMAL 100 - 129 mg/dl NEAR OR ABOVE OPTIMAL 130 - 159 mg/dl BORDERLINE HIGH 160 - 189 mg/dl HIGH >190 mg/dl VERY HIGH Performed By: #### L IPID, CMP, TSH #### [facility] [address] [address] [address] Gaetano Gore Triglyceride [Mass/Vol] 135 mg/dL Normal <=150 [facility] Comment on above: Performed By: #### L IPID, CMP, TSH #### [facility] [address] [address] [address] Gaetano Gore VLDL CALC 27.0 mg/dL Normal [facility] Comment on above: Performed By: #### L IPID, CMP, TSH #### [facility] [address] [address] [address] Gaetano Gore PROF 14(COMP METB)on 023 Albumin [Mass/Vol] 3.8 g/dL Normal 3.4-5.0 [facility] Comment on above: Performed By: #### L IPID, CMP, TSH #### [facility] [address] [address] [address] Gaetano Gore Albumin/Globulin [Mass ratio] 1.3 {ratio} Normal [facility] Comment on above: Performed By: #### L IPID, CMP, TSH #### [facility] [address] [place] [address] Dr. Gaetano Gore ALP [Catalytic activity/Vol] 60 U/L Normal 46-116 [facility] Comment on above: Performed By: #### L IPID, CMP, TSH #### [facility] [address] [address] [address] Gaetano Gore ALT [Catalytic activity/Vol] 25 U/L Normal 16-[address] [facility] Comment on above: Performed By: #### L IPID, CMP, TSH #### [facility] [address] [place] [address] Dr. Gaetano Gore Anion gap [Moles/Vol] 11.7 mmol/L Normal [facility] Comment on above: Performed By: #### L IPID, CMP, TSH #### [facility] [address] [place] [address] Dr. Gaetano Gore AST [Catalytic activity/Vol] 22 U/L Normal 15-37 [facility] Comment on above: Performed By: #### L IPID, CMP, TSH #### [facility] [address] [address] [address] Gaetano Gore Bilirubin [Mass/Vol] 0.5 mg/dL Normal 0.2-1.0 [facility] Comment on above: Performed By: #### L IPID, CMP, TSH #### [facility] [address] [address] [address] Gaetano Gore Calcium [Mass/Vol] 9.2 mg/dL Normal 8.5-10.1 [facility] Comment on above: Performed By: #### L IPID, CMP, TSH #### [facility] [address] [place] [address] Dr. Gaetano Gore Chloride [Moles/Vol] 106 mmol/L Normal 98-107 [facility] Comment on above: Performed By: #### L IPID, CMP, TSH #### [facility] [address] [place] [address] Dr. Gaetano Gore CO2 [Moles/Vol] 28.0 mmol/L Normal 21.0-32.0 [facility] Comment on above: Performed By: #### L IPID, CMP, TSH #### [facility] [address] [place] [address] Dr. Gaetano Gore Creatinine [Mass/Vol] 1.11 mg/dL Normal 0.70-1.[address] [facility] Comment on above: Performed By: #### L IPID, CMP, TSH #### [facility] [address] [place] [address] Dr. Gaetano Gore EGFR-AF UZBEK >60 Normal >=60 [facility] Comment on above: Performed By: #### L IPID, CMP, TSH #### [facility] [address] [place] [address] Dr. Gaetano Gore EGFR-NON AF UZBEK >60 Normal >=60 [facility] Comment on above: Performed By: #### L IPID, CMP, TSH #### [facility] [address] [address] [address] Gaetano Gore Globulin (S) [Mass/Vol] 2.9 g/dL Normal [facility] Comment on above: Performed By: #### L IPID, CMP, TSH #### [facility] [address] [address] [address] Gaetano Gore Glucose [Mass/Vol] 143 mg/dL Critically high 74-106 [facility] Comment on above: Performed By: #### L IPID, CMP, TSH #### [facility] [address] [address] [address] Gaetano Gore Potassium [Moles/Vol] 4.7 mmol/L Normal 3.5-5.1 [facility] Comment on above: Performed By: #### L IPID, CMP, TSH #### [facility] [address] [address] [address] Gaetano Gore Protein [Mass/Vol] 6.7 g/dL Normal 6.4-8.2 [facility] Comment on above: Performed By: #### L IPID, CMP, TSH #### [facility] [address] [address] [address] Gaetano Gore Sodium [Moles/Vol] 141 mmol/L Normal 136-145 [facility] Comment on above: Performed By: #### L IPID, CMP, TSH #### [facility] [address] [address] [address] Gaetano Gore Urea nitrogen [Mass/Vol] 28.0 mg/dL Critically high 7.0-18.0 [facility] Comment on above: Performed By: #### L IPID, CMP, TSH #### [facility] [address] [address] [address] Gaetano Gore Urea nitrogen/Creatinine [Mass ratio] 25.2 mg/mg Normal [facility] Comment on above: Performed By: #### L IPID, CMP, TSH #### [facility] [address] [address] [address] Gaetano Gore TSHon 09-12-2022 TSH 2.326 uIU/mL Normal 0.358-3.74 0 [facility] Comment on above: Performed By: #### L IPID, CMP, TSH #### [facility] [address] [address] [address] FACIAL BONES WO [...] CADENCE THORNTON Date: 2022-06-20 13:[address] [facility] CT HEAD WO CONon 06-20-2022 CT [...] CADENCE THORNTON Date: 2022-06-20 12:[address] [facility] GLYCOHEMOGLOBIN A1Con 2021 ADA RECOMMENDATION SEE BELOW Normal [facility] Comment on above: Result Comment: ADA RECOMMENDED LIMIT 4.0 - 6.0 ADA THERAPEUTIC TARGET < 7.0 ACTION SUGGESTED > 7.0 Performed By: #### A 1C #### [facility] [address] [address] [address] Gaetano Gore Glucose [Mass/Vol] 171 mg/dL Normal [facility] Comment on above: Performed By: #### A 1C #### [facility] [address] [address] [address] Gaetano Gore HbA1c (Bld) [Mass fraction] 7.6 % Critically high 4.5-6.2 [facility] Comment on above: Performed By: #### A 1C #### [facility] [address] [address] [address] Gaetano Gore GLYCOHEMOGLOBIN A1Con 2021 ADA RECOMMENDATION SEE BELOW Normal [facility] Comment on above: Result Comment: ADA RECOMMENDED LIMIT 4.0 - 6.0 ADA THERAPEUTIC TARGET < 7.0 ACTION SUGGESTED > 7.0 Performed By: #### A 1C ####[facility] [id number] [address]Dr. Gaetano Gore Glucose [Mass/Vol] 203 mg/dL Normal [facility] Comment on above: Performed By: #### A 1C ####[facility] [id number] [address]Dr. Gaetano Gore HbA1c (Bld) [Mass fraction] 8.7 % Critically high 4.5-6.[address] [facility] Comment on above: Performed By: #### A 1C ####[facility] [id number] [address]Dr. Gaetano Gore Progress Noteson 01-30-2021 [employer] Authentication Interface Message Text [facility] Authentication Interface Message Text .Patient was identified by name and date of . Janis Lai .Patient at risk for falls:No Falls Risk protocol implemented: No Pt accompanied by brother. Normal [facility] XR CHEST 2 VIEW PA+LATon XR CHEST 2 VIEW PA+LAT Normal [facility] Patient Instructionson 01-12 [employer]rel [employer]er Authentication Interface Message Text No specific neurosurgical follow up or imaging needed Normal [facility] Progress Noteson 01-12-2021 Mandrel [employer]er Authentication Interface Message Text Normal [facility] CBCon 01-08-2021 Erythrocyte distribution width (RBC) [Ratio] 14.5 % High 11.8-14.4 [facility] Comment on above: Performed By: #### C P, CBC #### [facility] [address] [place] [address] [id number] Vehicle Detailer: Cadence Decker MD Hematocrit (Bld) [Volume fraction] 31.9 % Low 40.7-50.3 [facility] Comment on above: Performed By: #### C P, CBC #### [address] [place] [address] Vehicle Detailer: Cadence Decker MD Hemoglobin (Bld) [Mass/Vol] 9.5 g/dL Low 13.0-17.0 [facility] Comment on above: Performed By: #### C P, CBC #### [address] [id number] Vehicle Detailer: Cadence Decker MD MCH (RBC) [Entitic mass] 27.9 pg Normal 25.2-33.5 [facility] Comment on above: Performed By: #### C P, CBC #### [address] [place], [facility]83 Vehicle Detailer: Cadence Decker MD MCHC (RBC) [Mass/Vol] 29.8 g/dL Normal 28.4-34.8 [facility] Comment on above: Performed By: #### C P, CBC #### [address] [place] [address] Vehicle Detailer: Cadence Decker MD MCV (RBC) [Entitic vol] 93.5 fL Normal 82.6-102.9 [facility] Comment on above: Performed By: #### C P, CBC #### [facility] [address] [place], [place] [id number] Vehicle Detailer: Cadence Decker MD NRBC Automated 0.0 per 100 WBC Normal 0.0 [facility] Comment on above: Performed By: #### C P, CBC #### [facility] [address] [place], [facility]83 Vehicle Detailer: Cadence Decker MD Platelet mean volume (Bld) [Entitic vol] 8.8 fL Normal 8.1-13.5 [facility] Comment on above: Performed By: #### C P, CBC #### [address] [place], [facility]83 Vehicle Detailer: Cadence Decker MD Platelets (Bld) [#/Vol] 252 10*3/uL Normal 138-453 [facility] Comment on above: Performed By: #### C P, CBC #### [address] [place] [address] Vehicle Detailer: Cadence Decker MD RBC (Bld) [#/Vol] 3.41 10*6/uL Low 4.21-5.77 [facility] Comment on above: Performed By: #### C P, CBC #### [address] [place], [facility]83 Vehicle Detailer: Cadence Decker MD WBC (Bld) [#/Vol] 4.4 10*3/uL Normal 3.5-11.3 [facility] Comment on above: Performed By: #### C P, CBC #### [address] [place] [address] Vehicle Detailer: Cadence Decker MD CBCOrdered By: Yuko Hunt on 01-08-2021 Hematocrit (Bld) [Volume fraction] 31.9 % Low 40.7 - 50.3 % [facility] Work Phone: Hemoglobin.gastroin testinal spec 1 Ql (Stl) 9.5 g/dL Low 13.0 - 17.0 g/dL [employer] Phone: Interpretation and review of laboratory results Abnormal [employer] Phone: MCH (RBC) [Entitic mass] 27.9 pg 25.2 - 33.5 pg [employer] Phone: MCHC (RBC) [Mass/Vol] 29.8 g/dL 28.4 - 34.8 g/dL [employer] Phone: MCV (RBC) [Entitic vol] 93.5 fL 82.6 - 102.9 fL [employer] Phone: NRBC Automated 0.0 0.0 per 100 WBC [employer] Phone: Platelet distribution width (Bld) [Ratio] 14.5 % High 11.8 - 14.4 % [employer] Phone: Platelet mean volume (Bld) [Entitic vol] 8.8 fL 8.1 - 13.5 fL [employer] Phone: Platelets (Bld) [#/Vol] 252 10*3/uL [employer] Phone: RBC (Bld) [#/Vol] 3.41 10*6/uL Low 4.21 - 5.77 m/uL [employer] Phone: WBC (Bld) [#/Vol] 4.4 10*3/uL [employer] Phone: [employer] Phone: Comp Metabolic Profon 2020 (cont.) Normal [facility] Comment on above: Result Comment: Aver age GFR for 60-69 years old: 85 mL/min/1.73sq m Chronic Kidney Disease: <60 mL/min/1.73sq m Kidney failure: <15 mL/min/1.73sq m eGFR calculated using average adult body mass. Additional eGFR calculator available at: http://www.[employer].Billeo/multiple_crcl_2012.htm Performed By: #### C P, CBC #### [facility] [address] [place], [place] [id number] Vehicle Detailer: Cadence Decker MD Albumin [Mass/Vol] 2.5 g/dL Low 3.5-5.2 [facility] Comment on above: Performed By: #### C P, CBC #### [facility] [address] [place] [address] Vehicle Detailer: Cadence Decker MD Albumin/Glob Ratio 0.6 Low 1.0-2.5 [facility] Comment on above: Performed By: #### C P, CBC #### [facility] [address] [place], [place] [id number] Vehicle Detailer: Cadence Decker MD Alkaline Phos 120 U/L Normal 40-129 [facility] Comment on above: Performed By: #### C P, CBC #### [facility] [address] [place] [address] Vehicle Detailer: Cadence Decker MD ALT [Catalytic activity/Vol] U/L Low 5-41 [facility] Comment on above: Performed By: #### C P, CBC #### [facility] [address] [place] [address] Vehicle Detailer: Cadence Decker MD Anion gap [Moles/Vol] 9 mmol/L Normal 9-17 [facility] Comment on above: Performed By: #### C P, CBC #### [facility] [address] [place], [place] [phone] Vehicle Detailer: Cadence Decker MD AST [Catalytic activity/Vol] 9 U/L Normal <40 [facility] Comment on above: Performed By: #### C P, CBC #### [facility] [address] [place], [place] 108[address]83 Vehicle Detailer: Cadence Decker MD Bilirubin [Mass/Vol] 0.17 mg/dL Low 0.3-1.2 [facility] Comment on above: Performed By: #### C P, CBC #### [facility] [address] [place], [place] [address] Vehicle Detailer: Cadence Decker MD BUN/CRE Ratio 28 High 9-20 [facility] Comment on above: Performed By: #### C P, CBC #### [facility] [address] [place], [place] [phone] Vehicle Detailer: Cadence Decker MD Calcium [Mass/Vol] 8.4 mg/dL Low 8.6-10.4 [facility] Comment on above: Performed By: #### C P, CBC #### [facility] [address] [place], [place] [phone] Vehicle Detailer: Cadence Decker MD Chloride [Moles/Vol] 103 mmol/L Normal 98-107 [facility] Comment on above: Performed By: #### C P, CBC #### [facility] [address] [place] [address] Dr. [place], [place] [phone] Vehicle Detailer: Cadence Decker MD CO2 [Moles/Vol] 25 mmol/L Normal 20-31 [facility] Comment on above: Performed By: #### C P, CBC #### [facility] [address] [place], [place] [id number] Vehicle Detailer: Cadence Decker MD Creatinine [Mass/Vol] 0.61 mg/dL Low 0.70-1.20 [facility] Comment on above: Performed By: #### C P, CBC #### [facility] [address] [place], [place] [phone] Vehicle Detailer: Cadence Decker MD GFR, Amer >60 Normal >60 [facility] Comment on above: Performed By: #### C P, CBC #### [facility] [address] [place] [address] Vehicle Detailer: Cadence Decker MD GFR,non Amer >60 Normal >60 [facility] Comment on above: Performed By: #### C P, CBC #### [facility] [address] [place], [place] 301[address]83 Vehicle Detailer: Cadence Decker MD Glucose [Mass/Vol] 130 mg/dL High 70-99 [facility] Comment on above: Performed By: #### C P, CBC #### [facility] [address] [place] [address] Vehicle Detailer: Cadence Decker MD Potassium [Moles/Vol] 4.8 mmol/L Normal 3.7-5.3 [facility] Comment on above: Performed By: #### C P, CBC #### [facility] [address] [place], [place] [phone] Vehicle Detailer: Cadence Decker MD Protein [Mass/Vol] 6.7 g/dL Normal 6.4-8.3 [facility] Comment on above: Performed By: #### C P, CBC #### [facility] [address] [place] [address] Vehicle Detailer: Cadence Decker MD Sodium [Moles/Vol] 137 mmol/L Normal 135-144 [facility] Comment on above: Performed By: #### C P, CBC #### [facility] [address] [place] [address] Vehicle Detailer: Cadence Decker MD Staging: Normal [facility] Comment on above: Result Comment: Stag e 1: Some kidney damage normal GFR Stage 2: Mild kidney damage GFR 60-89 Stage 3: Moderate kidney damage GFR 30-59 Stage 4: Severe kidney damage GFR 15-29 Stage 5: Severe kidney damage GFR <15 ESRD - chronic treatment by dialysis or transplant Performed By: #### C P, CBC #### [facility] [address] [place] [address] Vehicle Detailer: Cadence Decker MD Urea nitrogen [Mass/Vol] 17 mg/dL Normal 8-23 [facility] Comment on above: Performed By: #### C P, CBC #### [facility] [address] [place] [address] Vehicle Detailer: Cadence Decker MD Comprehensive Metabolic Pane lOrdered By: Yuko Hunt on 01-08-2021 Albumin [Mass/Vol] 2.5 g/dL Low 3.5 - 5.2 g/dL [facility]: Albumin/Globulin [Mass ratio] 0.6 {ratio} Low [employer] Phone: ALP (Bld) [Catalytic activity/Vol] 120 U/L 40 - 129 U/L [facility]: ALT [Catalytic activity/Vol] U/L Low 5 - 41 U/L [facility]: Anion gap [Moles/Vol] 9 mmol/L 9 - 17 mmol/L [facility]: AST [Catalytic activity/Vol] 9 U/L <40 [employer] Phone: Bilirubin [Mass/Vol] 0.17 mg/dL Low 0.3 - 1.2 mg/dL [facility]: Calcium [Mass/Vol] 8.4 mg/dL Low 8.6 - 10. 4 mg/dL [facility]: Chloride [Moles/Vol] 103 mmol/L 98 - 107 mmol/L [employer] Phone: CO2 [Moles/Vol] 25 mmol/L 20 - 31 mmol/L [facility]: Creatinine [Mass/Vol] 0.61 mg/dL Low 0.70 - 1.20 mg/dL [employer] Phone: Free PSA/Total PSA [Mass fraction] 6.7 g/dL 6.4 - 8.3 g/dL [employer] Phone: GFR >60 >60 mL/min [employer] Phone: GFR Non- >60 >60 mL/min [employer] Phone: Glucose [Mass/Vol] 130 mg/dL High 70 - 99 mg/dL [employer] Phone: Interpretation and review of laboratory results Abnormal [employer] Phone: Potassium [Moles/Vol] 4.8 mmol/L 3.7 - 5.3 mmol/L [employer] Phone: Sodium [Moles/Vol] 137 mmol/L 135 - 144 mmol/L [employer] Phone: Urea nitrogen (BldV) [Mass/Vol] 17 mg/dL 8 - 23 mg/dL [employer] Phone: Urea nitrogen/Creatinine (Bld) [Mass ratio] 28 High [employer] Phone: [employer] Phone: Laboratory - Chemistry and C hemistry - challengeOrdered By: Yuko Hunt on 01-08-2021 GFR/1.73 sq M.predicted MDRD (S/P/Bld) [Vol rate/Area] [employer] Phone: Comment on above: Average GFR for 60-6 9 years old: 85 mL/min/1.73sq m Chronic Kidney Disease: <60 mL/min/1.73sq m Kidney failure: <15 mL/min/1.73sq m eGFR calculated using average adult body mass. Additional eGFR calculator available at: http://www.[employer].Billeo/multiple_crcl_2011.htm Stage 1: Some kidney damage normal GFR Stage 2: Mild kidney damage GFR 60-89 Stage 3: Moderate kidney damage GFR 30-59 Stage 4: Severe kidney damage GFR 15-29 Stage 5: Severe kidney damage GFR <15 ESRD - chronic treatment by dialysis or transplant CBCon 01-01-2021 Erythrocyte distribution width (RBC) [Ratio] 14.9 % High 11.8-14.4 [facility] Comment on above: Performed By: #### C P, CBC #### [address] [place], [place] [id number] Vehicle Detailer: Cadence Decker MD Hematocrit (Bld) [Volume fraction] 27.0 % Low 40.7-50.3 [facility] Comment on above: Performed By: #### C P, CBC #### [address] [place] [address] Vehicle Detailer: Cadence Decker MD Hemoglobin (Bld) [Mass/Vol] 8.1 g/dL Low 13.0-17.0 [facility] Comment on above: Performed By: #### C P, CBC #### [address] [place], [place] [phone] Vehicle Detailer: Cadence Decker MD MCH (RBC) [Entitic mass] 28.6 pg Normal 25.2-33.5 [facility] Comment on above: Performed By: #### C P, CBC #### [address] [place], [place] [phone] Vehicle Detailer: Cadence Decker MD MCHC (RBC) [Mass/Vol] 30.0 g/dL Normal 28.4-34.8 [facility] Comment on above: Performed By: #### C P, CBC #### [address] [place] [address] Vehicle Detailer: Cadence Decker MD MCV (RBC) [Entitic vol] 95.4 fL Normal 82.6-102.9 [facility] Comment on above: Performed By: #### C P, CBC #### [facility] [address] [place], [place] [phone] Vehicle Detailer: Cadence Decker MD NRBC Automated 0.0 per 100 WBC Normal 0.0 [facility] Comment on above: Performed By: #### C P, CBC #### [facility] [address] [place] [address] Vehicle Detailer: Cadence Decker MD Platelet mean volume (Bld) [Entitic vol] 9.2 fL Normal 8.1-13.5 [facility] Comment on above: Performed By: #### C P, CBC #### [address] [place] [address] Vehicle Detailer: Cadence Decker MD Platelets (Bld) [#/Vol] 230 10*3/uL Normal 138-453 [facility] Comment on above: Performed By: #### C P, CBC #### [address] [place] [address] Vehicle Detailer: Cadence Decker MD RBC (Bld) [#/Vol] 2.83 10*6/uL Low 4.21-5.77 [facility] Comment on above: Performed By: #### C P, CBC #### [address] [place] [address] Vehicle Detailer: Cadence Decker MD WBC (Bld) [#/Vol] 5.0 10*3/uL Normal 3.5-11.3 [facility] Comment on above: Performed By: #### C P, CBC #### [address] [place] [address] Vehicle Detailer: Cadence Decker MD CBCOrdered By: Yuko Hunt on 01-01-2021 Hematocrit (Bld) [Volume fraction] 27.0 % Low 40.7 - 50.3 % [facility] Work Phone: Hemoglobin.gastroin testinal spec 1 Ql (Stl) 8.1 g/dL Low 13.0 - 17.0 g/dL [employer] Phone: Interpretation and review of laboratory results Abnormal [employer] Phone: MCH (RBC) [Entitic mass] 28.6 pg 25.2 - 33.5 pg [employer] Phone: MCHC (RBC) [Mass/Vol] 30.0 g/dL 28.4 - 34.8 g/dL [employer] Phone: MCV (RBC) [Entitic vol] 95.4 fL 82.6 - 102.9 fL [employer] Phone: NRBC Automated 0.0 0.0 per 100 WBC [employer] Phone: Platelet distribution width (Bld) [Ratio] 14.9 % High 11.8 - 14.4 % [employer] Phone: Platelet mean volume (Bld) [Entitic vol] 9.2 fL 8.1 - 13.5 fL [employer] Phone: Platelets (Bld) [#/Vol] 230 10*3/uL [employer] Phone: RBC (Bld) [#/Vol] 2.83 10*6/uL Low 4.21 - 5.77 m/uL [employer] Phone: WBC (Bld) [#/Vol] 5.0 10*3/uL [employer] Phone: [employer] Phone: Comp Metabolic Profon 2020 (cont.) Normal [facility] Comment on above: Result Comment: Aver age GFR for 60-69 years old: 85 mL/min/1.73sq m Chronic Kidney Disease: <60 mL/min/1.73sq m Kidney failure: <15 mL/min/1.73sq m eGFR calculated using average adult body mass. Additional eGFR calculator available at: http://www.[employer].Billeo/multiple_crcl_2012.htm Performed By: #### C P, CBC #### [facility] [address] [place], [place] [phone] Vehicle Detailer: Cadence Decker MD Albumin [Mass/Vol] 2.3 g/dL Low 3.5-5.2 [facility] Comment on above: Performed By: #### C P, CBC #### [facility] [address] [place], [place] [phone] Vehicle Detailer: Cadence Decker MD Albumin/Glob Ratio 0.5 Low 1.0-2.5 [facility] Comment on above: Performed By: #### C P, CBC #### [facility] [address] [place], [place] [phone] Vehicle Detailer: Cadence Decker MD Alkaline Phos 96 U/L Normal 40-129 [facility] Comment on above: Performed By: #### C P, CBC #### [facility] [address] [place] [address] Vehicle Detailer: Cadence Decker MD ALT [Catalytic activity/Vol] 7 U/L Normal 5-41 [facility] Comment on above: Performed By: #### C P, CBC #### [facility] [address] [place], [place] [phone] Vehicle Detailer: Cadence Decker MD Anion gap [Moles/Vol] 9 mmol/L Normal 9-17 [facility] Comment on above: Performed By: #### C P, CBC #### [facility] [address] [place], [place] 0995783 Vehicle Detailer: Cadence Decker MD AST [Catalytic activity/Vol] 9 U/L Normal <40 [facility] Comment on above: Performed By: #### C P, CBC #### [facility] [address] [place], [place] [phone] Vehicle Detailer: Cadence Decker MD Bilirubin [Mass/Vol] 0.19 mg/dL Low 0.3-1.2 [facility] Comment on above: Performed By: #### C P, CBC #### [facility] [address] [place], [place] [phone] Vehicle Detailer: Cadence Decker MD BUN/CRE Ratio 20 Normal 9-20 [facility] Comment on above: Performed By: #### C P, CBC #### [facility] [address] [place] [address] [place] [place], [place] [phone] Vehicle Detailer: Cadence Decker MD Calcium [Mass/Vol] 8.1 mg/dL Low 8.6-10.4 [facility] Comment on above: Performed By: #### C P, CBC #### [facility] [address] [place] [address] [place] [place], [place] [phone] Vehicle Detailer: Cadence Decker MD Chloride [Moles/Vol] 99 mmol/L Normal 98-107 [facility] Comment on above: Performed By: #### C P, CBC #### [facility] [address] [place] [address] [place] [place], [place] [phone] Vehicle Detailer: Cadence Dekcer MD CO2 [Moles/Vol] 25 mmol/L Normal 20-31 [facility] Comment on above: Performed By: #### C P, CBC #### [facility] [address] [place] [address] Dr[address] [place], [place] [phone] Vehicle Detailer: Cadence Decker MD Creatinine [Mass/Vol] 0.61 mg/dL Low 0.70-1.20 [facility] Comment on above: Performed By: #### C P, CBC #### [facility] [address] [place] [address] Dr[address] [place], [place] [phone] Vehicle Detailer: Cadence eDcker MD GFR, Amer >60 Normal >60 [facility] Comment on above: Performed By: #### C P, CBC #### [facility] [address] [place], [place] [phone] Vehicle Detailer: Cadence Decker MD GFR,non Amer >60 Normal >60 [facility] Comment on above: Performed By: #### C P, CBC #### [facility] [address] [place], [place] 26[address]83 Vehicle Detailer: Cadence Decker MD Glucose [Mass/Vol] 157 mg/dL High 70-99 [facility] Comment on above: Performed By: #### C P, CBC #### [facility] [address] [place] [address] Vehicle Detailer: Cadence Decker MD Potassium [Moles/Vol] 4.3 mmol/L Normal 3.7-5.3 [facility] Comment on above: Performed By: #### C P, CBC #### [facility] [address] [place], [place] [phone] Vehicle Detailer: Cadence Decker MD Protein [Mass/Vol] 6.7 g/dL Normal 6.4-8.3 [facility] Comment on above: Performed By: #### C P, CBC #### [facility] [address] [place], [place] [phone] Vehicle Detailer: Cadence Decker MD Sodium [Moles/Vol] 133 mmol/L Low 135-144 [facility] Comment on above: Performed By: #### C P, CBC #### [facility] [address] [place] [address] Vehicle Detailer: Cadence Decker MD Staging: Normal [facility] Comment on above: Result Comment: Stag e 1: Some kidney damage normal GFR Stage 2: Mild kidney damage GFR 60-89 Stage 3: Moderate kidney damage GFR 30-59 Stage 4: Severe kidney damage GFR 15-29 Stage 5: Severe kidney damage GFR <15 ESRD - chronic treatment by dialysis or transplant Performed By: #### C P, CBC #### [facility] [address] [place] [address] Vehicle Detailer: Cadence Decker MD Urea nitrogen [Mass/Vol] 12 mg/dL Normal 8- [facility] Comment on above: Performed By: #### C P, CBC #### [facility] [address] [place] [address] Vehicle Detailer: Cadence Decker MD Comprehensive Metabolic Pane lOrdered By: Yuko Hunt on 01-01-2021 Albumin [Mass/Vol] 2.3 g/dL Low 3.5 - 5.2 g/dL [facility] Phone: Albumin/Globulin [Mass ratio] 0.5 {ratio} Low [facility] Phone: ALP (Bld) [Catalytic activity/Vol] 96 U/L 40 - 129 U/L [facility] [employer] Phone: ALT [Catalytic activity/Vol] 7 U/L 5 - 41 U/L [facility] Phone: Anion gap [Moles/Vol] 9 mmol/L 9 - 17 mmol/L [facility] [employer] Phone: AST [Catalytic activity/Vol] 9 U/L <[address] [facility] [employer] Phone: Bilirubin [Mass/Vol] 0.19 mg/dL Low 0.3 - 1.2 mg/dL [facility] Phone: Calcium [Mass/Vol] 8.1 mg/dL Low 8.6 - 10. 4 mg/dL [facility] Phone: Chloride [Moles/Vol] 99 mmol/L 98 - 107 mmol/L [employer] Phone: CO2 [Moles/Vol] 25 mmol/L 20 - 31 mmol/L [facility] Phone: Creatinine [Mass/Vol] 0.61 mg/dL Low 0.70 - 1.20 mg/dL [employer] Phone: Free PSA/Total PSA [Mass fraction] 6.7 g/dL 6.4 - 8.3 g/dL [employer] Phone: GFR >60 >60 mL/min [employer] Phone: GFR Non- >60 >60 mL/min [employer] Phone: Glucose [Mass/Vol] 157 mg/dL High 70 - 99 mg/dL [employer] Phone: Interpretation and review of laboratory results Abnormal [employer] Phone: Potassium [Moles/Vol] 4.3 mmol/L 3.7 - 5.3 mmol/L [employer] Phone: Sodium [Moles/Vol] 133 mmol/L Low 135 - 144 mmol/L [employer] Phone: Urea nitrogen (BldV) [Mass/Vol] 12 mg/dL 8 - 23 mg/dL [employer] Phone: Urea nitrogen/Creatinine (Bld) [Mass ratio] 20 [employer] Phone: [employer] Phone: Laboratory - Chemistry and C hemistry - challengeOrdered By: Yuko Hunt on 01-01-2021 GFR/1.73 sq M.predicted MDRD (S/P/Bld) [Vol rate/Area] [employer] Phone: Comment on above: Average GFR for 60-6 9 years old: 85 mL/min/1.73sq m Chronic Kidney Disease: <60 mL/min/1.73sq m Kidney failure: <15 mL/min/1.73sq m eGFR calculated using average adult body mass. Additional eGFR calculator available at: http://www.[employer].Billeo/multiple_crcl_2012.htm Stage 1: Some kidney damage normal GFR Stage 2: Mild kidney damage GFR 60-89 Stage 3: Moderate kidney damage GFR 30-59 Stage 4: Severe kidney damage GFR 15-29 Stage 5: Severe kidney damage GFR <15 ESRD - chronic treatment by dialysis or transplant COMPLETE BLOOD COUNTon 12-28 Erythrocyte distribution width (RBC) [Ratio] 15.5 % High 11.5-14.5 [facility] Comment on above: Performed By: #### C BC ####[facility] PATHOLOGY [id number] [place], [place], Hematocrit (Bld) [Volume fraction] 23.2 % Low 41.0-53.0 [facility] Comment on above: Performed By: #### C BC ####[facility] PATHOLOGY [id number] [place], [place], Hemoglobin (Bld) [Mass/Vol] 7.7 g/dL Low 13.9-16.3 [facility] Comment on above: Performed By: #### C BC ####[facility] PATHOLOGY [id number] [place] [address], MCH (RBC) [Entitic mass] 29.9 pg Normal 26.0-34.0 [facility] Comment on above: Performed By: #### C BC ####[facility] PATHOLOGY [id number] [place] [address], MCHC (RBC) [Mass/Vol] 33.2 g/dL Normal 32.0-35.9 [facility] Comment on above: Performed By: #### C BC ####[facility] PATHOLOGY [id number] [place] [address], MCV (RBC) [Entitic vol] 90 fL Normal 80-100 [facility] Comment on above: Performed By: #### C BC ####[facility] PATHOLOGY [id number] [place], [place], Platelet mean volume (Bld) [Entitic vol] 6.9 fL Low 7.5-11.2 [facility] Comment on above: Performed By: #### C BC ####[facility] PATHOLOGY [id number] [place] [address], Platelets (Bld) [#/Vol] 231 10*3/uL Normal 150-400 [facility] Comment on above: Performed By: #### C BC ####[facility] [id number] [place], [place], RBC (Bld) [#/Vol] 2.58 10*6/uL Low 4.50-5.90 [facility] Comment on above: Performed By: #### C BC ####[facility] [id number] [place], WBC (Bld) [#/Vol] 5.4 10*3/uL Normal 4.5-11.5 [facility] Comment on above: Performed By: #### C BC ####[facility] [id number] [place], [place], Care Plan Noteon 12-28-2020 Mandrel Cleaner Authentication Interface Message Text Normal [facility] Consultson 12-28-2020 Mandrel Cleaner Authentication Interface Message Text Normal [facility] Discharge Planning Noteon Mandrel Cleaner Authentication Interface Message Text Normal [facility] GLUCOSE, FINGERSTICK-IN OFFI CEon 12-28-2020 Glucose [Mass/Vol] 186 mg/dL High 80-116 [facility] Comment on above: Performed By: #### 8 2948 ####NURSING GLUCOSE [id number] [place], [address] Glucose [Mass/Vol] 266 mg/dL High 80-116 [facility] Comment on above: Performed By: #### 8 2948 ####NURSING GLUCOSE [id number] [place], [address] Progress Noteson 12-28-2020 Mandrel Cleaner Authentication Interface Message Text Report called to [facility]. Normal [facility] Mandrel Cleaner Authentication Interface Message Text SW informed by admissions at [place] that pre-cert has been obtained. SW to set up transport via [facility]. YUNIEL Sanderson Social Work Normal [facility] Mandrel Cleaner Authentication Interface Message Text Normal [facility] Care Plan Noteon 12-27-2020 Mandrel Cleaner Authentication Interface Message Text Normal [facility] Mandrel Cleaner Authentication Interface Message Text Normal [facility] Consultson 12-27-2020 Mandrel Cleaner Authentication Interface Message Text Normal [facility] GLUCOSE, FINGERSTICK-IN OFFI CEon 12-27-2020 Glucose [Mass/Vol] 215 mg/dL High 80-116 [facility] Comment on above: Performed By: #### 8 2948 ####NURSING GLUCOSE [id number] [place], [address] Glucose [Mass/Vol] 279 mg/dL High 80-116 [facility] Comment on above: Performed By: #### 8 2948 ####NURSING GLUCOSE [id number] [place], [address] Glucose [Mass/Vol] 213 mg/dL High 80-116 [facility] Comment on above: Performed By: #### 8 2948 ####NURSING GLUCOSE [id number] [place], [address] Progress Noteson 12-27-2020 Mandrel Cleaner Authentication Interface Message Text Normal [facility] Mandrel Cleaner Authentication Interface Message Text Normal [facility] Mandrel Cleaner Authentication Interface Message Text Normal [facility] Care Plan Noteon 12-26-2020 Mandrel Cleaner Authentication Interface Message Text Normal [facility] Consultson 12-26-2020 Mandrel Cleaner Authentication Interface Message Text Normal [facility] Mandrel Cleaner Authentication Interface Message Text Normal [facility] GLUCOSE, FINGERSTICK-IN OFFI on 12-26-2020 Glucose [Mass/Vol] 240 mg/dL High 80-116 [facility] Comment on above: Performed By: #### 8 2948 ####NURSING GLUCOSE [id number] [place], [address] Glucose [Mass/Vol] 171 mg/dL High 80-116 [facility] Comment on above: Performed By: #### 8 2948 ####NURSING GLUCOSE [id number] [place], [address] Glucose [Mass/Vol] 215 mg/dL High 80-116 [facility] Comment on above: Performed By: #### 8 2948 ####NURSING GLUCOSE [id number] [place], [address] Glucose [Mass/Vol] 151 mg/dL High 80-116 [facility] Comment on above: Performed By: #### 8 2948 ####NURSING GLUCOSE [id number] [place], [address] Progress Noteson 12-26-2020 Mandrel Cleaner Authentication Interface Message Text Normal [facility] Mandrel Cleaner Authentication Interface Message Text Normal [facility] Mandrel Cleaner Authentication Interface Message Text Normal [facility] Care Plan Noteon 12-25-2020 Mandrel Cleaner Authentication Interface Message Text Normal [facility] GLUCOSE, FINGERSTICK-IN OFFI CEon 12-25-2020 Glucose [Mass/Vol] 209 mg/dL High 80-116 [facility] Comment on above: Performed By: #### 8 2948 ####NURSING GLUCOSE [id number] [place], [address] Glucose [Mass/Vol] 193 mg/dL High 80-116 [facility] Comment on above: Performed By: #### 8 2948 ####NURSING GLUCOSE [id number] [place], [address] Glucose [Mass/Vol] 150 mg/dL High 80-116 [facility] Comment on above: Performed By: #### 8 2948 ####NURSING GLUCOSE [id number] [place], [address] Glucose [Mass/Vol] 96 mg/dL Normal 80-116 [facility] Comment on above: Performed By: #### 8 2948 ####NURSING GLUCOSE [id number] [place], [address] Glucose [Mass/Vol] 142 mg/dL High 80-116 [facility] Comment on above: Performed By: #### 8 2948 ####NURSING GLUCOSE [id number] [place], [address] Progress Noteson 12-25-2020 Mandrel Cleaner Authentication Interface Message Text Normal [facility] Mandrel Cleaner Authentication Interface Message Text Normal [facility] Mandrel Cleaner Authentication Interface Message Text Normal [facility] Care Plan Noteon 12-24-2020 Mandrel Cleaner Authentication Interface Message Text Normal [facility] Consultson 12-24-2020 Mandrel Cleaner Authentication Interface Message Text Normal [facility] GLUCOSE, FINGERSTICK-IN OFFI CEon 12-24-2020 Glucose [Mass/Vol] 211 mg/dL High 80-116 [facility] Comment on above: Performed By: #### 8 2948 ####NURSING GLUCOSE [id number] [place], [address] Glucose [Mass/Vol] 206 mg/dL High 80-116 [facility] Comment on above: Performed By: #### 8 2948 ####NURSING GLUCOSE [id number] [place], [address] Glucose [Mass/Vol] 102 mg/dL Normal 80-116 [facility] Comment on above: Performed By: #### 8 2948 ####NURSING GLUCOSE [id number] [place], [address] Glucose [Mass/Vol] 66 mg/dL Low 80-116 [facility] Comment on above: Performed By: #### 8 2948 ####NURSING GLUCOSE [id number] [place], [address] Glucose [Mass/Vol] 159 mg/dL High 80-116 [facility] Comment on above: Performed By: #### 8 2948 ####NURSING GLUCOSE [id number] [place], [address] Progress Noteson 12-24-2020 Mandrel Cleaner Authentication Interface Message Text Normal [facility] Mandrel Cleaner Authentication Interface Message Text Normal [facility] BASIC METABOLIC PANELon Anion gap [Moles/Vol] 11 mmol/L Normal 5-13 [facility] Comment on above: Performed By: #### Sofia Apodaca8, MG ####[facility] [id number] [place], Calcium [Mass/Vol] 7.2 mg/dL Low 8.4-10.4 [facility] Comment on above: Performed By: #### Sofia Shah, MG ####[facility] [id number] [place], Chloride [Moles/Vol] 100 mmol/L Normal 97-111 [facility] Comment on above: Performed By: #### Sofia Shah, MG ####[facility] [id number] [place], CO2 [Moles/Vol] 29 mmol/L Normal 21-30 [facility] Comment on above: Performed By: #### Sofia Shah, MG ####[facility] [id number] [place], Creatinine [Mass/Vol] 0.71 mg/dL Low 0.80-1.30 [facility] Comment on above: Performed By: #### Sofia Shah, MG ####S PATHOLOGY [id number] [place], ESTIMATED GFR (CKD-EPI) 99 mL/min/1.73sqm Normal >=60 [facility] Comment on above: Performed By: #### Sofia Shah, MG ####S PATHOLOGY [id number] [place], Glucose [Mass/Vol] 177 mg/dL High 80-116 [facility] Comment on above: Performed By: #### Sofia Shah, MG ####S PATHOLOGY [id number] [place], Potassium [Moles/Vol] 4.3 mmol/L Normal 3.3-5.3 [facility] Comment on above: Performed By: #### Sofia Sahh, MG ####S PATHOLOGY [id number] [place], Sodium [Moles/Vol] 136 mmol/L Normal 135-148 [facility] Comment on above: Performed By: #### Sofia Shah, MG ####S PATHOLOGY [id number] [place], Urea nitrogen [Mass/Vol] 13 mg/dL Normal 8-22 [facility] Comment on above: Performed By: #### Sofia Shah, MG ####S PATHOLOGY [id number] [place], COMPLETE BLOOD COUNTon 12-23 Erythrocyte distribution width (RBC) [Ratio] 15.7 % High 11.5-14.5 [facility] Comment on above: Performed By: #### Sofia BC ####[facility] [id number] [place], Hematocrit (Bld) [Volume fraction] 21.6 % Low 41.0-53.0 [facility] Comment on above: Performed By: #### Sofia BC ####[facility] PATHOLOGY [id number] [place], Hemoglobin (Bld) [Mass/Vol] 7.2 g/dL Low 13.9-16.3 [facility] Comment on above: Performed By: #### C BC ####[facility] PATHOLOGY [id number] [place], MCH (RBC) [Entitic mass] 29.8 pg Normal 26.0-34.0 [facility] Comment on above: Performed By: #### C BC ####[facility] PATHOLOGY [id number] [place], [place], MCHC (RBC) [Mass/Vol] 33.1 g/dL Normal 32.0-35.9 [facility] Comment on above: Performed By: #### C BC ####[facility] PATHOLOGY [id number] [place], MCV (RBC) [Entitic vol] 90 fL Normal 80-100 [facility] Comment on above: Performed By: #### C BC ####[facility] PATHOLOGY [id number] [place], Platelet mean volume (Bld) [Entitic vol] 6.5 fL Low 7.5-11.2 [facility] Comment on above: Performed By: #### C BC ####[facility] PATHOLOGY [id number] [place], Platelets (Bld) [#/Vol] 288 10*3/uL Normal 150-400 [facility] Comment on above: Performed By: #### C BC ####[facility] PATHOLOGY [id number] [place], RBC (Bld) [#/Vol] 2.41 10*6/uL Low 4.50-5.90 [facility] Comment on above: Performed By: #### C BC ####[facility] PATHOLOGY [id number] [place], WBC (Bld) [#/Vol] 6.8 10*3/uL Normal 4.5-11.5 [facility] Comment on above: Performed By: #### C BC ####[facility] [id number] [place], [address] Care Plan Noteon 12-23-2020 Mandrel Cleaner Authentication Interface Message Text Normal [facility] GLUCOSE, FINGERSTICK-IN OFFI CEon 12-23-2020 Glucose [Mass/Vol] 139 mg/dL High 80-116 [facility] Comment on above: Performed By: #### 8 2948 ####NURSING GLUCOSE [id number] [place], [address] Glucose [Mass/Vol] 112 mg/dL Normal 80-116 [facility] Comment on above: Performed By: #### 8 2948 ####NURSING GLUCOSE YWAETTJ1722 [place], [address] Glucose [Mass/Vol] 206 mg/dL High 80-116 [facility] Comment on above: Performed By: #### 8 2948 ####NURSING GLUCOSE QQITYZS7144 [place], [address] Glucose [Mass/Vol] 115 mg/dL Normal 80-116 [facility] Comment on above: Performed By: #### 8 2948 ####NURSING GLUCOSE CLSVVOQ3997 [place], [address] Glucose [Mass/Vol] 172 mg/dL High 80-116 [facility] Comment on above: Performed By: #### 8 2948 ####NURSING GLUCOSE JABPFSA6413 [place], [address] HEMOGLOBIN A1Con 12-23-2020 Glucose [Mass/Vol] 143 mg/dL Normal [facility] Comment on above: Order Comment: HbA1c of 5.7-6.4% have increased risk for diabetes and CV(Source :ADA 2014 Standard of Medical Care in Diabetes) Performed By: #### H B A1C ####[facility] [address] [place], [address] HbA1c (Bld) [Mass fraction] 6.6 % High 4.0-5.6 [facility] Comment on above: Order Comment: HbA1c of 5.7-6.4% have increased risk for diabetes and CV(Source :ADA 2014 Standard of Medical Care in Diabetes) Performed By: #### H B A1C ####[facility]OR[facility] [address] [place], [address] MAGNESIUMon 12-23-2020 Magnesium [Mass/Vol] 1.9 mg/dL Normal 1.6-2.8 The [facility] Comment on above: Performed By: #### C H8, MG ####S PATHOLOGY AVMOHRYDVA5024 [place], Progress Noteson 12-23-2020 Mandrel Cleaner Authentication Interface Message Text Normal [facility] Mandrel Cleaner Authentication Interface Message Text Normal [facility] BASIC METABOLIC PANELon Anion gap [Moles/Vol] 10 mmol/L Normal 5-13 The [facility] Comment on above: Performed By: #### Rosa Wells, CH8 ####S PATHOLOGY [id number] [place], Calcium [Mass/Vol] 7.4 mg/dL Low 8.4-10.4 [facility] Comment on above: Performed By: #### Rosa Wells, CH8 ####[facility] PATHOLOGY [id number] [place], Chloride [Moles/Vol] 101 mmol/L Normal 97-111 [facility] Comment on above: Performed By: #### Rosa Wells, CH8 ####S PATHOLOGY [id number] [place], CO2 [Moles/Vol] 30 mmol/L Normal 21-30 [facility] Comment on above: Performed By: #### Rosa Wells, CH8 ####S PATHOLOGY [id number] [place], Creatinine [Mass/Vol] 0.62 mg/dL Low 0.80-1.30 [facility] Comment on above: Performed By: #### Rosa Wells, CH8 ####S PATHOLOGY [id number] [place], ESTIMATED GFR (CKD-EPI) 105 mL/min/1.73sqm Normal >=60 [facility] Comment on above: Performed By: #### Rosa Wells, CH8 ####S PATHOLOGY MNEMBRGLER1154 [place], Glucose [Mass/Vol] 91 mg/dL Normal 80-116 [facility] Comment on above: Performed By: #### Rosa Wells, CH8 ####[facility] PATHOLOGY [id number] [place], Potassium [Moles/Vol] 4.3 mmol/L Normal 3.3-5.3 [facility] Comment on above: Performed By: #### Rosa Wells, JASON8 ####[facility] PATHOLOGY [id number] [place], Sodium [Moles/Vol] 137 mmol/L Normal 135-148 [facility] Comment on above: Performed By: #### Rosa Wells, JASON8 ####[facility] PATHOLOGY [id number] [place], Urea nitrogen [Mass/Vol] 10 mg/dL Normal 8-22 [facility] Comment on above: Performed By: #### Rosa Wells CH8 ####[facility] PATHOLOGY [id number] [place], COMPLETE BLOOD COUNTon 12-22 Erythrocyte distribution width (RBC) [Ratio] 16.0 % High 11.5-14.5 [facility] Comment on above: Performed By: #### C BC ####[facility] PATHOLOGY [id number] [place], Hematocrit (Bld) [Volume fraction] 22.8 % Low 41.0-53.0 [facility] Comment on above: Performed By: #### C BC ####[facility] PATHOLOGY [id number] [place], Hemoglobin (Bld) [Mass/Vol] 7.4 g/dL Low 13.9-16.3 [facility] Comment on above: Performed By: #### C BC ####[facility] PATHOLOGY [id number] [place], MCH (RBC) [Entitic mass] 29.1 pg Normal 26.0-34.0 [facility] Comment on above: Performed By: #### C BC ####[facility] PATHOLOGY [id number] [place], MCHC (RBC) [Mass/Vol] 32.7 g/dL Normal 32.0-35.9 [facility] Comment on above: Performed By: #### C BC ####S PATHOLOGY [id number] [place], MCV (RBC) [Entitic vol] 89 fL Normal 80-100 [facility] Comment on above: Performed By: #### C BC ####[facility] PATHOLOGY [id number] [place], Platelet mean volume (Bld) [Entitic vol] 6.5 fL Low 7.5-11.2 [facility] Comment on above: Performed By: #### C BC ####[facility] PATHOLOGY [id number] [place], Platelets (Bld) [#/Vol] 306 10*3/uL Normal 150-400 [facility] Comment on above: Performed By: #### C BC ####[facility] PATHOLOGY [id number] [place], RBC (Bld) [#/Vol] 2.56 10*6/uL Low 4.50-5.90 [facility] Comment on above: Performed By: #### C BC ####[facility] PATHOLOGY [id number] [place], WBC (Bld) [#/Vol] 10.0 10*3/uL Normal 4.5-11.5 [facility] Comment on above: Performed By: #### C BC ####[facility] PATHOLOGY [id number] [place], Care Plan Noteon 12-22-2020 Mandrel Cleaner Authentication Interface Message Text Normal [facility] 12-22-2020 Mandrel Cleaner Authentication Interface Message Text Normal [facility] Mandrel Cleaner Authentication Interface Message Text Normal [facility] Mandrel Cleaner Authentication Interface Message Text Normal [facility] GLUCOSE, FINGERSTICK-IN OFFI CEon 12-22-2020 Glucose [Mass/Vol] 110 mg/dL Normal 80-116 [facility] Comment on above: Performed By: #### 8 2948 ####NURSING GLUCOSE MRUUVKS3078 [place], [address] Glucose [Mass/Vol] 243 mg/dL High 80-116 [facility] Comment on above: Performed By: #### 8 2948 ####NURSING GLUCOSE MUXFYXG2256 [place], [address] Glucose [Mass/Vol] 120 mg/dL High 80-116 [facility] Comment on above: Performed By: #### 8 2948 ####NURSING GLUCOSE JUEWYBV2569 [place], [address] Glucose [Mass/Vol] 102 mg/dL Normal 80-116 [facility] Comment on above: Performed By: #### 8 2948 ####NURSING GLUCOSE CJHIGRS1735 [place], [address] MAGNESIUMon 12-22-2020 Magnesium [Mass/Vol] 1.8 mg/dL Normal 1.6-2.8 [facility] Comment on above: Performed By: #### Rosa Wells CH8 ####[facility] PATH[facility] PFJJQRGJHB3725 [place], Progress Noteson 12-22-2020 Mandrel Cleaner Authentication Interface Message Text Normal [facility] Mandrel Cleaner Authentication Interface Message Text Normal [facility] Mandrel Cleaner Authentication Interface Message Text Normal [facility] XR CHEST AP OR PA 1 VIEWon 0 12-22-2020 XR CHEST AP OR PA 1 VIEW Normal [facility] XR CHEST AP OR PA 1 VIEW Normal [facility] BASIC METABOLIC PANELon Anion gap [Moles/Vol] 12 mmol/L Normal 5-13 The [facility] Comment on above: Performed By: #### C H8, MG ####[facility] PATH[facility]Y XDJAMBSIEX5652 [place], Calcium [Mass/Vol] 7.4 mg/dL Low 8.4-10.4 [facility] Comment on above: Performed By: #### C H8, MG ####[facility] PATH[facility]Y PYITBAXKCN1838 [place], Chloride [Moles/Vol] 99 mmol/L Normal 97-111 [facility] Comment on above: Performed By: #### C H8, MG ####[facility]Y AZCCUNMMIX1004 [place], CO2 [Moles/Vol] 27 mmol/L Normal 21-30 [facility] Comment on above: Performed By: #### C H8, MG ####[facility] PATH[facility]Y AIEXYGENOL5062 [place], Creatinine [Mass/Vol] 0.63 mg/dL Low 0.80-1.30 [facility] Comment on above: Performed By: #### C H8, MG ####[facility] PATH[facility]Y IKMNFEZQPB5981 [place], ESTIMATED GFR (CKD-EPI) 104 mL/min/1.73sqm Normal >=60 [facility] Comment on above: Performed By: #### C H8, MG ####S PATHOLOGY AXTSQFGMBG7762 [place], Glucose [Mass/Vol] 228 mg/dL High 80-116 [facility] Comment on above: Performed By: #### C H8, MG ####S PATHOLOGY NBSNRAXPYK1065 [place], Potassium [Moles/Vol] 4.9 mmol/L Normal 3.3-5.3 [facility] Comment on above: Performed By: #### C H8, MG ####[facility] PATH[facility]Y DZDAKLEPUO0339 [place], Sodium [Moles/Vol] 133 mmol/L Low 135-148 [facility] Comment on above: Performed By: #### C H8, MG ####[facility] PATH[facility]Y RRJCFDEBDK3663 [place], Urea nitrogen [Mass/Vol] 8 mg/dL Normal 8-22 [facility] Comment on above: Performed By: #### C H8, MG ####[facility] PATH[facility]Y TFRVONILTG6049 [place], COMPLETE BLOOD COUNTon 12-21 Erythrocyte distribution width (RBC) [Ratio] 15.8 % High 11.5-14.5 [facility] Comment on above: Performed By: #### C BC ####[facility] PATHOLOGY [id number] [place], Hematocrit (Bld) [Volume fraction] 24.6 % Low 41.0-53.0 [facility] Comment on above: Performed By: #### C BC ####[facility] PATHOLOGY [id number] [place], Hemoglobin (Bld) [Mass/Vol] 8.3 g/dL Low 13.9-16.3 [facility] Comment on above: Performed By: #### C BC ####[facility] PATHOLOGY [id number] [place], MCH (RBC) [Entitic mass] 30.6 pg Normal 26.0-34.0 [facility] Comment on above: Performed By: #### C BC ####[facility] PATHOLOGY [id number] [place] [address], MCHC (RBC) [Mass/Vol] 33.6 g/dL Normal 32.0-35.9 [facility] Comment on above: Performed By: #### C BC ####[facility] PATHOLOGY [id number] [place], MCV (RBC) [Entitic vol] 91 fL Normal 80-100 [facility] Comment on above: Performed By: #### C BC ####[facility] PATHOLOGY [id number] [place], Platelet mean volume (Bld) [Entitic vol] 6.6 fL Low 7.5-11.2 [facility] Comment on above: Performed By: #### C BC ####[facility] PATHOLOGY [id number] [place], Platelets (Bld) [#/Vol] 361 10*3/uL Normal 150-400 [facility] Comment on above: Performed By: #### C BC ####[facility] PATHOLOGY [id number] [place], RBC (Bld) [#/Vol] 2.70 10*6/uL Low 4.50-5.90 [facility] Comment on above: Performed By: #### C BC ####[facility] PATH[facility]Y NPKSWHKZKC1438 [place], WBC (Bld) [#/Vol] 10.1 10*3/uL Normal 4.5-11.5 [facility] Comment on above: Performed By: #### C BC ####[facility] PATH[facility]Y NEODRFPXOB5692 [place], Consultson 12-21-2020 Mandrel Cleaner Authentication Interface Message Text Normal [facility] Mandrel Cleaner Authentication Interface Message Text Normal [facility] Mandrel Cleaner Authentication Interface Message Text Normal [facility] GLUCOSE, FINGERSTICK-IN OFFI CEon 12-21-2020 Glucose [Mass/Vol] 165 mg/dL High 80-116 [facility] Comment on above: Performed By: #### 8 2948 ####NURSING GLUCOSE QNGASWQ4886 [place], [address] Glucose [Mass/Vol] 270 mg/dL High 80-116 [facility] Comment on above: Performed By: #### 8 2948 ####NURSING GLUCOSE MGWEWWL2980 [place], [address] Glucose [Mass/Vol] 158 mg/dL High 80-116 [facility] Comment on above: Performed By: #### 8 2948 ####NURSING GLUCOSE YFOKIWH4057 [place], [address] Glucose [Mass/Vol] 175 mg/dL High 80-116 [facility] Comment on above: Performed By: #### 8 2948 ####NURSING GLUCOSE ZCIGRYF8536 [place], [address] Glucose [Mass/Vol] 283 mg/dL High 80-116 [facility] Comment on above: Result Comment: Javier childress RN, APN, MD Performed By: #### 8 7210 ####NURSING GLUCOSE HNLIPSC7246 [place], [address] HOSPon 12-21-2020 HOSP Patient:Uma Barker n N MRN: No data within the last 30 days. Normal [facility] MAGNESIUMon 12-21-2020 Magnesium [Mass/Vol] 1.6 mg/dL Normal 1.6-2.8 [facility] Comment on above: Performed By: #### C H8, MG ####[facility] PATH[facility] [id number] [place], Progress Noteson 12-21-2020 Mandrel Cleaner Authentication Interface Message Text Normal [facility] Mandrel Cleaner Authentication Interface Message Text Normal [facility] XR CHEST AP OR PA 1 VIEWon 0 12-21-2020 XR CHEST AP OR PA 1 VIEW Normal [facility] AFB CULTURE/SMEARon 12-21-19 21 AFB CULTURE/SMEAR C AFB: No Growth AFB STAIN: No Acid Fast Bacilli Seen Normal [facility] Comment on above: Performed By: #### C AFB ####[facility] Csmeimxgo8656 [place], [place] ANAEROBIC CULTURE, MISCon ANAEROBIC CULTURE, MISC C ANRBC: No Anaerobes isolated Normal [facility] Comment on above: Performed By: #### C ANRBC ####[facility] Nlxhgohrg3278 [place], [place] ANAEROBIC CULTURE, MISC C ANRBC: No Anaerobes isolated Normal [facility] Comment on above: Performed By: #### C ANRBC ####[facility] Olhorlekz5731 [place], [place] Anesthesia Attestationon Mandrel Cleaner Authentication Interface Message Text Normal [facility] Anesthesia Postprocedure Lizbeth luationon 12-20-2020 Mandrel Cleaner Authentication Interface Message Text Normal [facility] Anesthesia Preprocedure Eval uationon 12-20-2020 Mandrel Cleaner Authentication Interface Message Text Normal [facility] Anesthesia Transfer Of Careo n 12-20-2020 Mandrel Cleaner Authentication Interface Message Text Normal [facility] BASIC METABOLIC PANELon 11-23 Anion gap [Moles/Vol] 12 mmol/L Normal 5-13 The [facility] Comment on above: Performed By: #### C H8, MG ####[facility] PATH[facility] UZLDDFBEMC6806 [place], Calcium [Mass/Vol] 7.4 mg/dL Low 8.4-10.4 [facility] Comment on above: Performed By: #### Sofia Apodaca8, MG ####S PATHOLOGY GXAKVCXPJD6955 [place], Chloride [Moles/Vol] 100 mmol/L Normal 97-111 [facility] Comment on above: Performed By: #### Sofia Apodaca8, MG ####S PATHOLOGY KQECNTCLQB0331 [place], CO2 [Moles/Vol] 29 mmol/L Normal 21-30 [facility] Comment on above: Performed By: #### Sofia Apodaca8, MG ####S PATHOLOGY WSQAVNTHAL0171 [place], Creatinine [Mass/Vol] 0.70 mg/dL Low 0.80-1.30 [facility] Comment on above: Performed By: #### Sofia Shah, MG ####S PATHOLOGY [id number] [place], ESTIMATED GFR (CKD-EPI) 100 mL/min/1.73sqm Normal >=60 [facility] Comment on above: Performed By: #### Sofia Shah, MG ####S PATHOLOGY KVYPVAUUCK4947 [place], Glucose [Mass/Vol] 192 mg/dL High 80-116 [facility] Comment on above: Performed By: #### Sofia H8, MG ####S PATHOLOGY UNCWFFPRCB0754 [place], Potassium [Moles/Vol] 4.5 mmol/L Normal 3.3-5.3 [facility] Comment on above: Performed By: #### Sofia H8, MG ####[facility] YWRLDOOEBV2039 [place], Sodium [Moles/Vol] 136 mmol/L Normal 135-148 [facility] Comment on above: Performed By: #### Sofia H8, MG ####[facility] PATH[facility]Y PJWCUNLONF5509 [place], Urea nitrogen [Mass/Vol] 8 mg/dL Normal 8-22 [facility] Comment on above: Performed By: #### C H8, MG ####[facility] PATHOLOGY TLQYSNROUR[address] [place] [address], BLOOD GAS, ARTERIALon 2020 CR % O2 SAT > 99.4 Normal >=95.1 [facility] Comment on above: Performed By: #### C R LYTES, CR GLU, CR BGA, LACT, CR ICA, CR COOX ####[facility] PATHOLOGY URJHFZSVQE[address] [place] [address], CR LESA 3.3 mmol/L High -2.0-2.0 [facility] Comment on above: Performed By: #### C R LYTES, CR GLU, CR BGA, LACT, CR ICA, CR COOX ####[facility] PATHOLOGY YJAPKHYESM[address] [place] [address], CR PCO2 44.3 mm Hg Normal 35.0-45.0 [facility] Comment on above: Performed By: #### C R LYTES, CR GLU, CR BGA, LACT, CR ICA, CR COOX ####[facility] PATHOLOGY [id number] [place] [address], CR PHA 7.412 Normal 7.35-7.45 [facility] Comment on above: Performed By: #### C R LYTES, CR GLU, CR BGA, LACT, CR ICA, CR COOX ####[facility] PATHOLOGY QEGUTKXBLA7[address] [place] [address], CR PO2 298 mm Hg High 80-100 mm Hg [facility] Comment on above: Performed By: #### C R LYTES, CR GLU, CR BGA, LACT, CR ICA, CR COOX ####[facility] PATHOLOGY [id number] [place] [address], HCO3 (Bld) [Moles/Vol] 28 mmol/L Normal 22-28 [facility] Comment on above: Performed By: #### C R LYTES, CR GLU, CR BGA, LACT, CR ICA, CR COOX ####[facility] PATHOLOGY [id number] [place] [address], Blood Attestationon 12-21-19 Mandrel Cleaner Authentication Interface Message Text Normal [facility] Brief Operative Noteon 12-20 Mandrel Cleaner Authentication Interface Message Text Normal [facility] CALCIUM, IONIZEDon CR ICA 1.11 mmol/L Normal 1.10-1.40 [facility] Comment on above: Performed By: #### C R LYTES, CR GLU, CR BGA, LACT, CR ICA, CR COOX ####[facility] PATHOLOGY [id number] [place] [address], CO-OXIMETERon 12-20-2020 CARBOXYHEMOGLOBIN 2.1 % Normal <3.0 The [facility] Comment on above: Performed By: #### C R LYTES, CR GLU, CR BGA, LACT, CR ICA, CR COOX ####[facility] PATHOLOGY [id number] [place] [address], CR HBMET 0.9 % Normal <3.0 [facility] Comment on above: Performed By: #### C R LYTES, CR GLU, CR BGA, LACT, CR ICA, CR COOX ####[facility] PATHOLOGY [id number] [place] [address], Hematocrit (Bld) [Volume fraction] 25.5 % Low 42.0-52.0 [facility] Comment on above: Performed By: #### C R LYTES, CR GLU, CR BGA, LACT, CR ICA, CR COOX ####[facility] PATHOLOGY [id number] [place] [address], Hemoglobin (Bld) [Mass/Vol] 8.2 g/dL Low 14.0-18.0 [facility] Comment on above: Performed By: #### C R LYTES, CR GLU, CR BGA, LACT, CR ICA, CR COOX ####[facility] PATHOLOGY [id number] [place] [address], OXYHEMOGLOBIN 97.3 % Normal 95.0-100.0 [facility] Comment on above: Performed By: #### C R LYTES, CR GLU, CR BGA, LACT, CR ICA, CR COOX ####[facility] PATHOLOGY [id number] [place], COMPLETE BLOOD COUNTon 12-20 Erythrocyte distribution width (RBC) [Ratio] 15.4 % High 11.5-14.5 [facility] Comment on above: Performed By: #### C BC ####[facility] PATHOLOGY MGUYUXHIUN9540 [place], Hematocrit (Bld) [Volume fraction] 26.1 % Low 41.0-53.0 [facility] Comment on above: Performed By: #### C BC ####[facility] PATHOLOGY [id number] [place], Hemoglobin (Bld) [Mass/Vol] 8.5 g/dL Low 13.9-16.3 [facility] Comment on above: Performed By: #### C BC ####[facility] PATHOLOGY [id number] [place], MCH (RBC) [Entitic mass] 29.6 pg Normal 26.0-34.0 [facility] Comment on above: Performed By: #### C BC ####[facility] PATHOLOGY [id number] [place], MCHC (RBC) [Mass/Vol] 32.6 g/dL Normal 32.0-35.9 [facility] Comment on above: Performed By: #### C BC ####[facility] PATHOLOGY [id number] [place], MCV (RBC) [Entitic vol] 91 fL Normal 80-100 [facility] Comment on above: Performed By: #### C BC ####[facility] PATHOLOGY [id number] [place], Platelet mean volume (Bld) [Entitic vol] 6.8 fL Low 7.5-11.2 [facility] Comment on above: Performed By: #### C BC ####[facility] [facility] PATHOLOGY [id number] [place], [place], Platelets (Bld) [#/Vol] 405 10*3/uL High 150-400 [facility] Comment on above: Performed By: #### C BC ####[facility] PATHOLOGY [id number] [place], RBC (Bld) [#/Vol] 2.88 10*6/uL Low 4.50-5.90 [facility] Comment on above: Performed By: #### C BC ####[facility] PATHOLOGY [id number] [place], WBC (Bld) [#/Vol] 6.2 10*3/uL Normal 4.5-11.5 [facility] Comment on above: Performed By: #### C BC ####[facility] PATHOLOGY [id number] [place], Care Plan Noteon 12-20-2020 Mandrel Cleaner Authentication Interface Message Text Normal [facility] Consultson 12-20-2020 Mandrel Cleaner Authentication Interface Message Text Physical Therapy: Pt in OR for VATS. Will continue to follow per POC. Maria Luisa Henning LPTA Beeper #[phone] Normal [facility] ELECTROLYTESon 12-20-2020 Chloride [Moles/Vol] 104 mmol/L Normal 97-111 [facility] Comment on above: Performed By: #### C R LYTES, CR GLU, CR BGA, LACT, CR ICA, CR COOX ####[facility] PATHOLOGY [id number] [place], Potassium [Moles/Vol] 4.1 mmol/L Normal 3.3-5.3 [facility] Comment on above: Performed By: #### C R LYTES, CR GLU, CR BGA, LACT, CR ICA, CR COOX ####[facility] PATHOLOGY [id number] [place], Sodium [Moles/Vol] 136 mmol/L Normal 135-148 [facility] Comment on above: Performed By: #### C R LYTES, CR GLU, CR BGA, LACT, CR ICA, CR COOX ####[facility] PATHOLOGY [id number] [place], GLUCOSE, FINGERSTICK-IN OFFI CEon 12-20-2020 Glucose [Mass/Vol] 146 mg/dL High 80-116 [facility] Comment on above: Performed By: #### 8 2948 ####NURSING GLUCOSE [id number] [place], [address] Glucose [Mass/Vol] 147 mg/dL High 80-116 [facility] Comment on above: Performed By: #### 8 2948 ####NURSING GLUCOSE [id number] [place], [address] GLUCOSE, WHOLE BLOODon 12-20 CR GLU 132 mg/dL High 68-98 [facility] Comment on above: Performed By: #### C R LYTES, CR GLU, CR BGA, LACT, CR ICA, CR COOX ####[facility] [id number] [place], H AND Glenn 12-20-2020 Mandrel Cleaner Authentication Interface Message Text Normal [facility] LACTIC ACIDon 12-20-2020 CR LACT 1.2 mmol/L Normal 0.5-2.0 [facility] Comment on above: Performed By: #### C R LYTES, CR GLU, CR BGA, LACT, CR ICA, CR COOX ####[facility] PATH[facility]Y [id number] [place], MAGNESIUMon 12-20-2020 Magnesium [Mass/Vol] 1.9 mg/dL Normal 1.6-2.8 [facility] Comment on above: Performed By: #### C H8, MG ####[facility] PATH[facility]Y [id number] [place], [place], [place] Surgeonon 12-20-2020 Mandrel Cleaner Authentication Interface Message Text Normal [facility] Progress Noteson 12-20-2020 Mandrel Cleaner Authentication Interface Message Text 1529: Assessment completed with assistance of donkey doctor [id number]. 1620: Pt to go to the regular nursing floor per Dr. Pacheco. Normal [facility] Mandrel Cleaner Authentication Interface Message Text Normal [facility] RED BLOOD CELL COMPONENTon 0 12-20-2020 BB ORDER ITEM Product status info to follow Normal [facility] Comment on above: Performed By: #### R EVELYN ####[facility] PATH[facility]Y [id number] [place], RED BLOOD CELL UNIT STATUSon 12-20-2020 BLOOD PRODUCT CODE [id number] Normal [facility] Comment on above: Performed By: #### R BU ####[facility] PATHOLOGY [id number] [place], BLOOD PRODUCT CODE [id number] Normal [facility] Comment on above: Performed By: #### R BU ####[facility] PATHOLOGY [id number] [place], BLOOD PRODUCT DESCRIPTION Red Blood Cells Normal [facility] Comment on above: Performed By: #### R MANDA ####[facility] PATH[facility]Y [id number] [place], BLOOD PRODUCT STATUS Released to avail Normal [facility] Comment on above: Performed By: #### R MANDA ####[facility] PATHOLOGY [id number] [place], BLOOD PRODUCT UNIT INFO [id number] Normal [facility] Comment on above: Performed By: #### R MANDA ####[facility] PATHOLOGY MFFDRBBIKM3669 [place], BLOOD PRODUCT UNIT INFO [id number] Normal [facility] Comment on above: Performed By: #### R BU ####[facility] PATHOLOGY [id number] [place], BLOOD PRODUCT UNIT INFO [id number] Normal [facility] Comment on above: Performed By: #### R MANDA ####[facility] PATHOLOGY HCLGVAJKLK9051 [place], BLOOD PRODUCT UNIT INFO [id number] Normal [facility] Comment on above: Performed By: #### R MANDA ####[facility] PATHOLOGY [id number] [place], BLOOD PRODUCT UNIT TYPE 5100 Normal [facility] Comment on above: Result Comment: O Po s Performed By: #### R BU ####[facility] PATHOLOGY OGLSSAHISW6687 [place], CROSSMATCH INTERPRETATION Compatible (E) Normal [facility] Comment on above: Performed By: #### R MANDA ####[facility] PATH[facility]Y [id number] [place], TISSUE CULTURE, AEROBICon TISSUE CULTURE, AEROBIC C TISS: No Growth GRAM STAIN: 4+ Polymorphonuclear Leukocytes No Squamous Epithelial Cells seen No organisms seen Normal [facility] Comment on above: Performed By: #### C TISS ####[facility] Uqhujbotb6390 [place], [place] TISSUE CULTURE, AEROBIC C TISS: No Growth GRAM STAIN: 2+ Polymorphonuclear Leukocytes No Squamous Epithelial Cells seen No organisms seen Normal [facility] Comment on above: Performed By: #### C TISS ####[facility] Gykrcwnsa6370 [place], [place] XR CHEST AP OR PA 1 VIEWon 0 12-20-2020 XR CHEST AP OR PA 1 VIEW Normal [facility] Anesthesia Preprocedure Eval uationon 12-19-2020 Mandrel Cleaner Authentication Interface Message Text Normal [facility] BASIC METABOLIC PANELon 06- Anion gap [Moles/Vol] 13 mmol/L Normal 5-13 [facility] Comment on above: Performed By: #### Rosa Wells CH8 ####S PATHOLOGY [id number] [place], Calcium [Mass/Vol] 7.4 mg/dL Low 8.4-10.4 [facility] Comment on above: Performed By: #### Rosa Wells, JASON8 ####S PATHOLOGY [id number] [place], Chloride [Moles/Vol] 99 mmol/L Normal 97-111 [facility] Comment on above: Performed By: #### Rosa Wells, JASON8 ####S PATHOLOGY [id number] [place], CO2 [Moles/Vol] 29 mmol/L Normal 21-30 [facility] Comment on above: Performed By: #### Rosa Wells, CH8 ####S PATHOLOGY XAEETKHTLO3453 [place], Creatinine [Mass/Vol] 0.77 mg/dL Low 0.80-1.30 [facility] Comment on above: Performed By: #### Rosa Wells, CH8 ####[facility]Y MTXEVHYLQI6481 [place], ESTIMATED GFR (CKD-EPI) 96 mL/min/1.73sqm Normal >=60 [facility] Comment on above: Performed By: #### Rosa Wells, CH8 ####[facility] PATHOLOGY YHNCAOIKNJ8175 [place], Glucose [Mass/Vol] 105 mg/dL Normal 80-116 [facility] Comment on above: Performed By: #### Rosa Wells, CH8 ####S PATHOLOGY MVHUXYKYXL5051 [place], Potassium [Moles/Vol] 4.1 mmol/L Normal 3.3-5.3 [facility] Comment on above: Performed By: #### Rosa Wells, CH8 ####S PATHOLOGY EPJEMJHDJX1269 [place], Sodium [Moles/Vol] 137 mmol/L Normal 135-148 [facility] Comment on above: Performed By: #### Rosa Wells, CH8 ####S PATHOLOGY NBPNBNULMP6051 [place], Urea nitrogen [Mass/Vol] 9 mg/dL Normal 8-22 [facility] Comment on above: Performed By: #### Rosa Wells, CH8 ####S PATHOLOGY NVIRBGQCKZ3067 [place], COMPLETE BLOOD COUNTon 12-19 Erythrocyte distribution width (RBC) [Ratio] 15.4 % High 11.5-14.5 [facility] Comment on above: Performed By: #### C BC ####S PATHOLOGY WGYLOQJLEU6550 [place], Hematocrit (Bld) [Volume fraction] 25.3 % Low 41.0-53.0 [facility] Comment on above: Performed By: #### C BC ####[facility] PATH[facility]Y VCNZANQKGY6457 [place], Hemoglobin (Bld) [Mass/Vol] 8.3 g/dL Low 13.9-16.3 [facility] Comment on above: Performed By: #### C BC ####S PATHOLOGY [id number] [place], MCH (RBC) [Entitic mass] 29.2 pg Normal 26.0-34.0 [facility] Comment on above: Performed By: #### C BC ####S PATHOLOGY [id number] [place], MCHC (RBC) [Mass/Vol] 32.8 g/dL Normal 32.0-35.9 [facility] Comment on above: Performed By: #### C BC ####[facility] PATHOLOGY [id number] [place], MCV (RBC) [Entitic vol] 89 fL Normal 80-100 [facility] Comment on above: Performed By: #### C BC ####[facility] PATHOLOGY [id number] [place], Platelet mean volume (Bld) [Entitic vol] 6.5 fL Low 7.5-11.2 [facility] Comment on above: Performed By: #### C BC ####[facility] PATHOLOGY [id number] [place], Platelets (Bld) [#/Vol] 389 10*3/uL Normal 150-400 [facility] Comment on above: Performed By: #### C BC ####S PATHOLOGY [id number] [place], RBC (Bld) [#/Vol] 2.84 10*6/uL Low 4.50-5.90 [facility] Comment on above: Performed By: #### C BC ####S PATHOLOGY [id number] [place], WBC (Bld) [#/Vol] 5.5 10*3/uL Normal 4.5-11.5 [facility] Comment on above: Performed By: #### C BC ####[facility] PATH[facility]Y [id number] [place], Care Plan Noteon 12-19-2020 Mandrel Cleaner Authentication Interface Message Text Normal [facility] Consultson 12-19-2020 Mandrel Cleaner Authentication Interface Message Text Normal [facility] GLUCOSE, FINGERSTICK-IN OFFI CEon 12-19-2020 Glucose [Mass/Vol] 212 mg/dL High 80-116 [facility] Comment on above: Result Comment: Javier childress RN, APN, MD Performed By: #### 8 2948 ####NURSING GLUCOSE EGGAWBG7832 [place], [address] Glucose [Mass/Vol] 165 mg/dL High 80-116 [facility] Comment on above: Result Comment: Javier childress RN, APN, MD Performed By: #### 8 2948 ####NURSING GLUCOSE FUNHBTF7969 [place], [address] Glucose [Mass/Vol] 110 mg/dL Normal 80-116 [facility] Comment on above: Performed By: #### 8 2948 ####NURSING GLUCOSE HOTJWKF6279 [place], [address] Glucose [Mass/Vol] 109 mg/dL Normal 80-116 [facility] Comment on above: Performed By: #### 8 2948 ####NURSING GLUCOSE KAZTSHV1471 [place], [address] MAGNESIUMon 12-19-2020 Magnesium [Mass/Vol] 2.0 mg/dL Normal 1.6-2.8 [facility] Comment on above: Performed By: #### M G, CH8 ####[facility] PATHOLOGY XGVFXYFZRR1831 [place], [address] Progress Noteson 12-19-2020 Mandrel Cleaner Authentication Interface Message Text Trauma Team, please notify SW when pt is nearing DC. Pt will require [facility] precert[facility] provided an [facility]. Isabel Morrison, [facility], TIRE SETTER [phone] Normal [facility] Mandrel Cleaner Authentication Interface Message Text Normal [facility] Mandrel Cleaner Authentication Interface Message Text Normal [facility] TYPE AND SCREENon 12-19-2020 ABO and Rh group Nom (Bld) Blood group O Rh(D) positive Normal [facility] Comment on above: Performed By: #### T S ####[facility] PATHOLOGY IOSGBZHSWF1675 [place], ABSC INT Negative Normal [facility] Comment on above: Performed By: #### T S ####S PATHOLOGY EGGXZHDWPF9650 [place], BASIC METABOLIC PANELon 06-2 Anion gap [Moles/Vol] 13 mmol/L Normal 5-13 [facility] Comment on above: Performed By: #### Rosa Wells, CH8 ####S PATHOLOGY TCRJEKKQGI9351 [place], Calcium [Mass/Vol] 7.2 mg/dL Low 8.4-10.4 [facility] Comment on above: Performed By: #### Rosa Wells, CH8 ####[facility] PATHOLOGY [id number] [place] [address], Chloride [Moles/Vol] 99 mmol/L Normal 97-111 [facility] Comment on above: Performed By: #### Rosa Wells, JASON8 ####S PATHOLOGY RLSKKZUYWG4820 [place], CO2 [Moles/Vol] 27 mmol/L Normal 21-30 [facility] Comment on above: Performed By: #### Rosa Wells, JASON8 ####[facility] PATHOLOGY [id number] [place] [address], Creatinine [Mass/Vol] 0.78 mg/dL Low 0.80-1.30 [facility] Comment on above: Performed By: #### Rosa Wells, JASON8 ####S PATHOLOGY [id number] [place], ESTIMATED GFR (CKD-EPI) 95 mL/min/1.73sqm Normal >=60 [facility] Comment on above: Performed By: #### Rosa Wells, JASON8 ####S PATHOLOGY [id number] [place], Glucose [Mass/Vol] 120 mg/dL High 80-116 [facility] Comment on above: Performed By: #### Rosa Wells, JASON8 ####S PATHOLOGY FUJCFFNIDZ5[address] [place] [address], Potassium [Moles/Vol] 4.1 mmol/L Normal 3.3-5.3 [facility] Comment on above: Performed By: #### Rosa Wells, CH8 ####[facility] PATHOLOGY [id number] [place], Sodium [Moles/Vol] 135 mmol/L Normal 135-148 [facility] Comment on above: Performed By: #### Rosa Wells, JASON8 ####[facility] PATHOLOGY [id number] [place], Urea nitrogen [Mass/Vol] 8 mg/dL Normal 8-22 [facility] Comment on above: Performed By: #### Rosa Wells CH8 ####[facility] PATHOLOGY [id number] [place] [address], COMPLETE BLOOD COUNTon 12-18 Erythrocyte distribution width (RBC) [Ratio] 15.2 % High 11.5-14.5 [facility] Comment on above: Performed By: #### C BC ####[facility] PATHOLOGY [id number] [place] [address], Hematocrit (Bld) [Volume fraction] 23.8 % Low 41.0-53.0 [facility] Comment on above: Performed By: #### C BC ####[facility] PATHOLOGY [id number] [place] [address], Hemoglobin (Bld) [Mass/Vol] 8.0 g/dL Low 13.9-16.3 [facility] Comment on above: Performed By: #### C BC ####[facility] PATHOLOGY [id number] [place], MCH (RBC) [Entitic mass] 29.9 pg Normal 26.0-34.0 [facility] Comment on above: Performed By: #### C BC ####[facility] PATHOLOGY [id number] [place] [address], MCHC (RBC) [Mass/Vol] 33.7 g/dL Normal 32.0-35.9 [facility] Comment on above: Performed By: #### C BC ####[facility] PATHOLOGY OYYCKKRCDX[address] [place] [address], MCV (RBC) [Entitic vol] 89 fL Normal 80-100 [facility] Comment on above: Performed By: #### C BC ####[facility] PATHOLOGY [id number] [place], Platelet mean volume (Bld) [Entitic vol] 6.3 fL Low 7.5-11.2 [facility] Comment on above: Performed By: #### C BC ####[facility] PATHOLOGY [id number] [place], Platelets (Bld) [#/Vol] 374 10*3/uL Normal 150-400 [facility] Comment on above: Performed By: #### C BC ####[facility] PATHOLOGY [id number] [place], RBC (Bld) [#/Vol] 2.68 10*6/uL Low 4.50-5.90 [facility] Comment on above: Performed By: #### C BC ####[facility] PATHOLOGY [id number] [place], WBC (Bld) [#/Vol] 8.4 10*3/uL Normal 4.5-11.5 [facility] Comment on above: Performed By: #### C BC ####[facility] PATHOLOGY [id number] [place], CT CHEST W/O CONTRASTon 11-22 CT CHEST W/O CONTRAST 12.34 (mGy) [employer] Body Dosimetry Phantom 423.87 (mGycm) [employer] 610 Chest,Chest,Chest I1 Normal [facility] Care Plan Noteon 12-18-2020 Mandrel Cleaner Authentication Interface Message Text Normal [facility] Consultson 12-18-2020 Mandrel Cleaner Authentication Interface Message Text Normal [facility] GLUCOSE, FINGERSTICK-IN OFFI CEon 12-18-2020 Glucose [Mass/Vol] 211 mg/dL High 80-116 [facility] Comment on above: Performed By: #### 8 2948 ####NURSING GLUCOSE EUBWZEP9018 [place], Glucose [Mass/Vol] 252 mg/dL High 80-116 [facility] Comment on above: Performed By: #### 8 2948 ####NURSING GLUCOSE VKAXAPH7050 [place], [address] Glucose [Mass/Vol] 220 mg/dL High 80-116 [facility] Comment on above: Performed By: #### 8 2948 ####NURSING GLUCOSE QDAVSCN1777 [place], [address] Glucose [Mass/Vol] 79 mg/dL Low 80-116 [facility] Comment on above: Performed By: #### 8 2948 ####NURSING GLUCOSE [id number] [place], [address] MAGNESIUMon 12-18-2020 Magnesium [Mass/Vol] 1.8 mg/dL Normal 1.6-2.8 [facility] Comment on above: Performed By: #### Rosa Wells, CH8 ####[facility] PATH[facility]Y [id number] [place], Progress Noteson 12-18-2020 Mandrel Cleaner Authentication Interface Message Text Normal [facility] Mandrel Cleaner Authentication Interface Message Text Normal [facility] Mandrel Cleaner Authentication Interface Message Text Normal [facility] XR CHEST AP OR PA 1 VIEWon 0 12-18-2020 XR CHEST AP OR PA 1 VIEW Normal [facility] BASIC METABOLIC PANELon 06-2 Anion gap [Moles/Vol] 14 mmol/L High 5-13 [facility] Comment on above: Performed By: #### C H8, MG ####[facility] PATH[facility]Y [id number] [place], Calcium [Mass/Vol] 7.3 mg/dL Low 8.4-10.4 [facility] Comment on above: Performed By: #### Sofia H8, MG ####[facility] PATH[facility]Y XZZJBVYVQD8659 [place], Chloride [Moles/Vol] 98 mmol/L Normal 97-111 [facility] Comment on above: Performed By: #### C H8, MG ####[facility] PATHOLOGY OGAZMOVVOX1580 [place], CO2 [Moles/Vol] 26 mmol/L Normal 21-30 [facility] Comment on above: Performed By: #### C H8, MG ####[facility] PATHOLOGY [id number] [place], Creatinine [Mass/Vol] 0.80 mg/dL Normal 0.80-1.30 [facility] Comment on above: Performed By: #### C H8, MG ####[facility] PATH[facility]Y TIEVQRMZGG8449 [place], ESTIMATED GFR (CKD-EPI) 94 mL/min/1.73sqm Normal >=60 [facility] Comment on above: Performed By: #### C H8, MG ####S PATHOLOGY DSKWCYEBUU7157 [place], Glucose [Mass/Vol] 160 mg/dL High 80-116 [facility] Comment on above: Performed By: #### C H8, MG ####S PATHOLOGY UGTGQMFWHX6854 [place], Potassium [Moles/Vol] 4.1 mmol/L Normal 3.3-5.3 [facility] Comment on above: Performed By: #### C H8, MG ####S PATHOLOGY TKAAVLXCYE04[address] [place] [address], Sodium [Moles/Vol] 134 mmol/L Low 135-148 [facility] Comment on above: Performed By: #### C H8, MG ####S PATHOLOGY IIXJZMRABL6873 [place], Urea nitrogen [Mass/Vol] 10 mg/dL Normal 8-22 [facility] Comment on above: Performed By: #### C H8, MG ####[facility] PATH[facility]Y TJVFKZXBHT8699 [place], COMPLETE BLOOD COUNTon 12-17 Erythrocyte distribution width (RBC) [Ratio] 15.4 % High 11.5-14.5 [facility] Comment on above: Performed By: #### C BC ####[facility] PATHOLOGY RGHTTIOBCW8633 [place], Hematocrit (Bld) [Volume fraction] 24.0 % Low 41.0-53.0 [facility] Comment on above: Performed By: #### C BC ####[facility] PATHOLOGY [id number] [place], Hemoglobin (Bld) [Mass/Vol] 8.1 g/dL Low 13.9-16.3 [facility] Comment on above: Performed By: #### C BC ####[facility] PATHOLOGY [id number] [place], MCH (RBC) [Entitic mass] 31.0 pg Normal 26.0-34.0 [facility] Comment on above: Performed By: #### C BC ####[facility] PATHOLOGY [id number] [place], MCHC (RBC) [Mass/Vol] 33.9 g/dL Normal 32.0-35.9 [facility] Comment on above: Performed By: #### C BC ####[facility] PATHOLOGY [id number] [place] [address], MCV (RBC) [Entitic vol] 92 fL Normal 80-100 [facility] Comment on above: Performed By: #### C BC ####[facility] PATHOLOGY [id number] [place], Platelet mean volume (Bld) [Entitic vol] 6.6 fL Low 7.5-11.2 [facility] Comment on above: Performed By: #### C BC ####[facility] PATHOLOGY [id number] [place], Platelets (Bld) [#/Vol] 420 10*3/uL High 150-400 [facility] Comment on above: Performed By: #### C BC ####[facility] PATHOLOGY [id number] [place], RBC (Bld) [#/Vol] 2.62 10*6/uL Low 4.50-5.90 [facility] Comment on above: Performed By: #### C BC ####[facility] PATHOLOGY [id number] [place], WBC (Bld) [#/Vol] 8.3 10*3/uL Normal 4.5-11.5 [facility] Comment on above: Performed By: #### C BC ####[facility] [id number] [place], Care Plan Noteon 12-17-2020 Mandrel Cleaner Authentication Interface Message Text Normal [facility] GLUCOSE, FINGERSTICK-IN OFFI CEon 12-17-2020 Glucose [Mass/Vol] 147 mg/dL High 80-116 [facility] Comment on above: Result Comment: Javier childress RN, APN, MD Performed By: #### 8 2948 ####NURSING GLUCOSE XFWHTYH3981 [place], [address] Glucose [Mass/Vol] 205 mg/dL High 80-116 [facility] Comment on above: Performed By: #### 8 2948 ####NURSING GLUCOSE [id number] [place], [address] Glucose [Mass/Vol] 263 mg/dL High 80-116 [facility] Comment on above: Performed By: #### 8 2948 ####NURSING GLUCOSE BXPVBUG9258 [place], [address] Glucose [Mass/Vol] 133 mg/dL High 80-116 [facility] Comment on above: Performed By: #### 8 2948 ####NURSING GLUCOSE [id number] [place], [address] MAGNESIUMon 12-17-2020 Magnesium [Mass/Vol] 1.7 mg/dL Normal 1.6-2.8 [facility] Comment on above: Performed By: #### C H8, MG ####[facility] BRIXZEATZA7379 [place], [place], Progress Noteson 12-17-2020 Mandrel Cleaner Authentication Interface Message Text Normal [facility] Mandrel Cleaner Authentication Interface Message Text Normal [facility] Mandrel Cleaner Authentication Interface Message Text Normal [facility] XR CHEST AP OR PA 1 VIEWon 0 12-17-2020 XR CHEST AP OR PA 1 VIEW Normal [facility] BASIC METABOLIC PANELon 06-2 Anion gap [Moles/Vol] 14 mmol/L High 5-13 [facility] Comment on above: Performed By: #### Rosa Wells, CH8 ####S PATHOLOGY [id number] [place], Calcium [Mass/Vol] 7.4 mg/dL Low 8.4-10.4 [facility] Comment on above: Performed By: #### Rosa Wells, CH8 ####S PATHOLOGY TCBWNXOXHF2003 [place], Chloride [Moles/Vol] 101 mmol/L Normal 97-111 [facility] Comment on above: Performed By: #### Rosa Wells, CH8 ####S PATHOLOGY UJQMGXPUDW0385 [place], CO2 [Moles/Vol] 25 mmol/L Normal 21-30 [facility] Comment on above: Performed By: #### Rosa Wells, JASON8 ####S PATHOLOGY VQUBUMDBJL1751 [place], Creatinine [Mass/Vol] 0.74 mg/dL Low 0.80-1.30 [facility] Comment on above: Performed By: #### Rosa Wells, CH8 ####[facility] PATHOLOGY [id number] [place], ESTIMATED GFR (CKD-EPI) 97 mL/min/1.73sqm Normal >=60 [facility] Comment on above: Performed By: #### Rosa Wells, CH8 ####S PATHOLOGY UIOSMZYWDK9084 [place], Glucose [Mass/Vol] 138 mg/dL High 80-116 [facility] Comment on above: Performed By: #### Rosa Wells, CH8 ####S PATHOLOGY [id number] [place], Potassium [Moles/Vol] 4.5 mmol/L Normal 3.3-5.3 [facility] Comment on above: Performed By: #### Rosa Wells, CH8 ####S PATHOLOGY NOPMQQQYBL8055 [place], Sodium [Moles/Vol] 135 mmol/L Normal 135-148 [facility] Comment on above: Performed By: #### Rosa Wells, CH8 ####[facility] PATHOLOGY PIUKXYHJBX1655 [place], Urea nitrogen [Mass/Vol] 10 mg/dL Normal 8-22 [facility] Comment on above: Performed By: #### Rosa Wells, CH8 ####[facility] PATHOLOGY [id number] [place], COMPLETE BLOOD COUNTon 12-16 Erythrocyte distribution width (RBC) [Ratio] 15.4 % High 11.5-14.5 [facility] Comment on above: Performed By: #### C BC ####[facility] PATHOLOGY [id number] [place], Hematocrit (Bld) [Volume fraction] 24.6 % Low 41.0-53.0 [facility] Comment on above: Performed By: #### C BC ####[facility] PATHOLOGY [id number] [place], Hemoglobin (Bld) [Mass/Vol] 8.4 g/dL Low 13.9-16.3 [facility] Comment on above: Performed By: #### C BC ####[facility] PATHOLOGY [id number] [place], MCH (RBC) [Entitic mass] 30.4 pg Normal 26.0-34.0 [facility] Comment on above: Performed By: #### C BC ####[facility] PATHOLOGY JUJUTISUAN8411 [place], MCHC (RBC) [Mass/Vol] 34.0 g/dL Normal 32.0-35.9 [facility] Comment on above: Performed By: #### C BC ####[facility] PATHOLOGY [id number] [place], MCV (RBC) [Entitic vol] 89 fL Normal 80-100 [facility] Comment on above: Performed By: #### C BC ####[facility] PATHOLOGY [id number] [place], Platelet mean volume (Bld) [Entitic vol] 6.8 fL Low 7.5-11.2 [facility] Comment on above: Performed By: #### C BC ####S PATHOLOGY [id number] [place], Platelets (Bld) [#/Vol] 482 10*3/uL High 150-400 [facility] Comment on above: Performed By: #### C BC ####S PATHOLOGY DUSEAUKREK2215 [place], RBC (Bld) [#/Vol] 2.75 10*6/uL Low 4.50-5.90 [facility] Comment on above: Performed By: #### C BC ####[facility] PATHOLOGY [id number] [place], WBC (Bld) [#/Vol] 8.1 10*3/uL Normal 4.5-11.5 [facility] Comment on above: Performed By: #### C BC ####[facility] PATHOLOGY [id number] [place], Care Plan Noteon 12-16-2020 Mandrel Cleaner Authentication Interface Message Text Normal [facility] Mandrel Cleaner Authentication Interface Message Text Updated POC Normal [facility] GLUCOSE, FINGERSTICK-IN OFFI CEon 12-16-2020 Glucose [Mass/Vol] 273 mg/dL High 80-116 [facility] Comment on above: Performed By: #### 8 5564 ####NURSING GLUCOSE ASFISGU3507 [place], [address] Glucose [Mass/Vol] 243 mg/dL High 80-116 [facility] Comment on above: Performed By: #### 8 5587 ####NURSING GLUCOSE OWZUFHN4975 [place], [address] Glucose [Mass/Vol] 181 mg/dL High 80-116 [facility] Comment on above: Result Comment: Javier childress RN, APN, MD Performed By: #### 8 2300 ####NURSING GLUCOSE LNEAABC3386 [place], [address] Glucose [Mass/Vol] 105 mg/dL Normal 80-116 [facility] Comment on above: Performed By: #### 8 1801 ####NURSING GLUCOSE BQEKVHE9896 [place], [address] MAGNESIUMon 12-16-2020 Magnesium [Mass/Vol] 1.7 mg/dL Normal 1.6-2.8 [facility] Comment on above: Performed By: #### Rosa Wells CH8 ####[facility] PATHOLOGY OOTEEXOOTD2956 [place], Progress Noteson 12-16-2020 Mandrel Cleaner Authentication Interface Message Text Normal [facility] Mandrel Cleaner Authentication Interface Message Text Normal [facility] XR CHEST AP OR PA 1 VIEWon 0 12-16-2020 XR CHEST AP OR PA 1 VIEW Normal [facility] ABO RH TYPEon 12-15-2020 ABO and Rh group Nom (Bld) Blood group O Rh(D) positive Normal [facility] Comment on above: Performed By: #### Jeovanny SALAS ####S PATHOLOGY HLRGJKVFRY6551 [place], BASIC METABOLIC PANELon 11-22 Anion gap [Moles/Vol] 12 mmol/L Normal 5-13 [facility] Comment on above: Performed By: #### Sofia H8, MG ####S PATHOLOGY MJCFNDOWCE9477 [place], Calcium [Mass/Vol] 7.2 mg/dL Low 8.4-10.4 [facility] Comment on above: Performed By: #### Sofia H8, MG ####S PATHOLOGY NZVHGWMBSC6683 [place], Chloride [Moles/Vol] 101 mmol/L Normal 97-111 [facility] Comment on above: Performed By: #### Sofia H8, MG ####S PATHOLOGY [id number] [place], CO2 [Moles/Vol] 26 mmol/L Normal 21-30 [facility] Comment on above: Performed By: #### Sofia H8, MG ####S PATHOLOGY TWAMJLHOTZ8487 [place], Creatinine [Mass/Vol] 0.76 mg/dL Low 0.80-1.30 [facility] Comment on above: Performed By: #### Sofia H8, MG ####[facility] PATH[facility] [id number] [place], ESTIMATED GFR (CKD-EPI) 96 mL/min/1.73sqm Normal >=60 [facility] Comment on above: Performed By: #### Sofia H8, MG ####[facility] PATH[facility]Y PKDDQJAPXM4257 [place], Glucose [Mass/Vol] 218 mg/dL High 80-116 [facility] Comment on above: Performed By: #### Sofia H8, MG ####[facility] PATHOLOGY NFVNTNFFJC2342 [place], Potassium [Moles/Vol] 4.3 mmol/L Normal 3.3-5.3 [facility] Comment on above: Performed By: #### Sofia H8, MG ####S PATHOLOGY MDBRWPBSQH8738 [place], Sodium [Moles/Vol] 135 mmol/L Normal 135-148 [facility] Comment on above: Performed By: #### Sofia H8, MG ####S PATHOLOGY PTUSVFGZVL8732 [place], Urea nitrogen [Mass/Vol] 12 mg/dL Normal 8-22 [facility] Comment on above: Performed By: #### Sofia H8, MG ####S PATHOLOGY PIHFHWCSFH9441 [place], COMPLETE BLOOD COUNTon 12-15 Erythrocyte distribution width (RBC) [Ratio] 15.2 % High 11.5-14.5 [facility] Comment on above: Performed By: #### C BC ####[facility] PATH[facility]Y BJAXGABBLY5095 [place], Hematocrit (Bld) [Volume fraction] 25.1 % Low 41.0-53.0 [facility] Comment on above: Performed By: #### C BC ####[facility] PATH[facility]Y WOTKSHOSEA7898 [place], Hemoglobin (Bld) [Mass/Vol] 8.4 g/dL Low 13.9-16.3 [facility] Comment on above: Performed By: #### C BC ####[facility] PATHOLOGY NXZMIRKXWH4648 [place], MCH (RBC) [Entitic mass] 29.8 pg Normal 26.0-34.0 [facility] Comment on above: Performed By: #### C BC ####S PATHOLOGY LUUUAXBDPD4756 [place], MCHC (RBC) [Mass/Vol] 33.4 g/dL Normal 32.0-35.9 [facility] Comment on above: Performed By: #### C BC ####[facility] PATHOLOGY [id number] [place], MCV (RBC) [Entitic vol] 89 fL Normal 80-100 [facility] Comment on above: Performed By: #### C BC ####[facility] PATHOLOGY OZDUWXERVS4870 [place], Platelet mean volume (Bld) [Entitic vol] 7.0 fL Low 7.5-11.2 [facility] Comment on above: Performed By: #### C BC ####[facility] PATHOLOGY [id number] [place], Platelets (Bld) [#/Vol] 548 10*3/uL High 150-400 [facility] Comment on above: Performed By: #### C BC ####[facility] PATHOLOGY QMNNCPCEFO8869 [place], RBC (Bld) [#/Vol] 2.82 10*6/uL Low 4.50-5.90 [facility] Comment on above: Performed By: #### C BC ####[facility] PATHOLOGY [id number] [place], WBC (Bld) [#/Vol] 8.4 10*3/uL Normal 4.5-11.5 [facility] Comment on above: Performed By: #### C BC ####S PATHOLOGY TGAQQRFKAE3546 [place], [place] Plan Noteon 12-15-2020 Mandrel Cleaner Authentication Interface Message Text Normal [facility] Consultson 12-15-2020 Mandrel Cleaner Authentication Interface Message Text Normal [facility] GLUCOSE, FINGERSTICK-IN OFFI CEon 12-15-2020 Glucose [Mass/Vol] 149 mg/dL High 80-116 [facility] Comment on above: Result Comment: Javier childress RN, APN, MD Performed By: #### 8 2948 ####NURSING GLUCOSE UQHDECB7847 [place], [address] Glucose [Mass/Vol] 138 mg/dL High 80-116 [facility] Comment on above: Performed By: #### 8 2948 ####NURSING GLUCOSE CLTYTUV6272 [place], [address] Glucose [Mass/Vol] 144 mg/dL High 80-116 [facility] Comment on above: Performed By: #### 8 2948 ####NURSING GLUCOSE UXIKGWU8444 [place], [address] Glucose [Mass/Vol] 198 mg/dL High 80-116 [facility] Comment on above: Performed By: #### 8 2948 ####NURSING GLUCOSE FZAWXEX6898 [place], [address] Glucose [Mass/Vol] 270 mg/dL High 80-116 [facility] Comment on above: Result Comment: Javier childress RN, APN, MD Performed By: #### 8 2940 ####NURSING GLUCOSE VZMAOGM2600 [place], [address] MAGNESIUMon 12-15-2020 Magnesium [Mass/Vol] 1.7 mg/dL Normal 1.6-2.8 [facility] Comment on above: Performed By: #### C H8, MG ####[facility] PATH[facility]Y QSTZWKYIKI3161 [place], [address] Progress Noteson 12-15-2020 Mandrel Cleaner Authentication Interface Message Text Normal [facility] Mandrel Cleaner Authentication Interface Message Text SW continue to follow for DC planning. [facility] Will need a precert. Please notify SW when pt is nearing DC. No weekend DC. JERMAINE LM with brother Ed, alerting him to the above. JACQUIE BrysonA, TIRE SETTER [phone] Normal [facility] Mandrel Cleaner Authentication Interface Message Text Normal [facility] TYPE AND SCREENon 12-15-2020 ABO and Rh group Nom (Bld) Blood group O Rh(D) positive Normal [facility] Comment on above: Performed By: #### T S ####[facility] PATHOLOGY NFCZJIWZHG8912 [place], ABO and Rh group Nom (Bld) No Previous Results Normal [facility] Comment on above: Performed By: #### T S ####[facility] PATHOLOGY AOFWAEMDSF2893 [place], ABSC INT Negative Normal [facility] Comment on above: Performed By: #### T S ####[facility] PATH[facility] ESRDPPJDEL7185 [place], XR CHEST AP OR PA 1 VIEWon 0 12-15-2020 XR CHEST AP OR PA 1 VIEW Normal [facility] Care Plan Noteon 12-14-2020 Mandrel Cleaner Authentication Interface Message Text Normal [facility] Consultson 12-14-2020 Mandrel Cleaner Authentication Interface Message Text Normal [facility] GLUCOSE, FINGERSTICK-IN OFFI CEon 12-14-2020 Glucose [Mass/Vol] 184 mg/dL High 80-116 [facility] Comment on above: Performed By: #### 8 2948 ####NURSING GLUCOSE QQCXEXL9035 [place], [address] Glucose [Mass/Vol] 218 mg/dL High 80-116 [facility] Comment on above: Performed By: #### 8 2948 ####NURSING GLUCOSE LPHXOLO4906 [place], [address] Glucose [Mass/Vol] 168 mg/dL High 80-116 [facility] Comment on above: Performed By: #### 8 2948 ####NURSING GLUCOSE ZLHNRAB7219 [place], [address] Progress Noteson 12-14-2020 Mandrel Cleaner Authentication Interface Message Text Normal [facility] Mandrel Cleaner Authentication Interface Message Text Normal [facility] Mandrel Cleaner Authentication Interface Message Text Normal [facility] XR CHEST AP OR PA 1 VIEWon 0 12-14-2020 XR CHEST AP OR PA 1 VIEW Normal [facility] BASIC METABOLIC PANELon - Anion gap [Moles/Vol] 14 mmol/L High 5-13 [facility] Comment on above: Performed By: #### Sofia Shah, MG ####S PATHOLOGY EBGESCDZPP1857 [place], Calcium [Mass/Vol] 7.3 mg/dL Low 8.4-10.4 [facility] Comment on above: Performed By: #### Sofia Shah, MG ####S PATHOLOGY MMBTEAWXYM4588 [place], Chloride [Moles/Vol] 101 mmol/L Normal 97-111 [facility] Comment on above: Performed By: #### Sofia Shah, MG ####[facility] PATH[facility] ZASYAHYHFY6859 [place], CO2 [Moles/Vol] 22 mmol/L Normal 21-30 [facility] Comment on above: Performed By: #### Sofia Shah, MG ####[facility] PATH[facility] NOBRNLHHFO5105 [place], Creatinine [Mass/Vol] 0.76 mg/dL Low 0.80-1.30 [facility] Comment on above: Performed By: #### Sofia Shah, MG ####S PATHOLOGY LJOVDJIKOO6399 [place], ESTIMATED GFR (CKD-EPI) 96 mL/min/1.73sqm Normal >=60 [facility] Comment on above: Performed By: #### Sofia Shah, MG ####S PATHOLOGY GGBIIGICBJ3662 [place], Glucose [Mass/Vol] 218 mg/dL High 80-116 [facility] Comment on above: Performed By: #### Sofia Shah, MG ####S PATHOLOGY ZLJBVJXEJZ9409 [place], Potassium [Moles/Vol] 4.7 mmol/L Normal 3.3-5.3 [facility] Comment on above: Result Comment: Hemo lysis present Performed By: #### Sofia Shah, MG ####S PATHOLOGY RQZRJPHTGJ7531 [place], Sodium [Moles/Vol] 132 mmol/L Low 135-148 [facility] Comment on above: Performed By: #### C H8, MG ####[facility] PATHOLOGY UXKJULIYIC5071 [place], Urea nitrogen [Mass/Vol] 16 mg/dL Normal 8-22 [facility] Comment on above: Performed By: #### C H8, MG ####[facility] PATHOLOGY MSBYVSUIZJ4271 [place], COMPLETE BLOOD COUNTon 12-13 Erythrocyte distribution width (RBC) [Ratio] 15.4 % High 11.5-14.5 [facility] Comment on above: Performed By: #### C BC ####[facility] PATHOLOGY [id number] [place], Hematocrit (Bld) [Volume fraction] 24.9 % Low 41.0-53.0 [facility] Comment on above: Performed By: #### C BC ####[facility] PATHOLOGY MIKWOHHKLO2322 [place], Hemoglobin (Bld) [Mass/Vol] 8.5 g/dL Low 13.9-16.3 [facility] Comment on above: Performed By: #### C BC ####[facility] PATHOLOGY [id number] [place], MCH (RBC) [Entitic mass] 30.6 pg Normal 26.0-34.0 [facility] Comment on above: Performed By: #### C BC ####[facility] PATHOLOGY [id number] [place], MCHC (RBC) [Mass/Vol] 34.1 g/dL Normal 32.0-35.9 [facility] Comment on above: Performed By: #### C BC ####[facility] PATHOLOGY UPHGHUUBHN8784 [place], MCV (RBC) [Entitic vol] 90 fL Normal 80-100 [facility] Comment on above: Performed By: #### C BC ####S PATHOLOGY BRDVLXUNFW6705 [place], Platelet mean volume (Bld) [Entitic vol] 7.1 fL Low 7.5-11.2 [facility] Comment on above: Performed By: #### C BC ####S PATHOLOGY GSAGQNTJTP0859 [place], Platelets (Bld) [#/Vol] 597 10*3/uL High 150-400 [facility] Comment on above: Performed By: #### C BC ####[facility] PATHOLOGY [id number] [place], RBC (Bld) [#/Vol] 2.77 10*6/uL Low 4.50-5.90 [facility] Comment on above: Performed By: #### C BC ####[facility] PATHOLOGY WITXBHKYEI4988 [place], WBC (Bld) [#/Vol] 10.0 10*3/uL Normal 4.5-11.5 [facility] Comment on above: Performed By: #### C BC ####[facility] PATHOLOGY XZHFYXDZSO8534 [place], CT HEAD W/O CONTRASTon 12-13 CT HEAD W/O CONTRAST Normal [facility] Care Plan Noteon 12-13-2020 Mandrel Cleaner Authentication Interface Message Text Normal [facility] Consultson 12-13-2020 Mandrel Cleaner Authentication Interface Message Text Normal [facility] Mandrel Cleaner Authentication Interface Message Text Normal [facility] GLUCOSE, FINGERSTICK-IN OFFI CEon 12-13-2020 Glucose [Mass/Vol] 256 mg/dL High 80-116 [facility] Comment on above: Performed By: #### 8 2948 ####NURSING GLUCOSE NZLBZJX1871 [place], [address] Glucose [Mass/Vol] 231 mg/dL High 80-116 [facility] Comment on above: Performed By: #### 8 2948 ####NURSING GLUCOSE EXDUKTY6614 [place], [address] Glucose [Mass/Vol] 216 mg/dL High 80-116 [facility] Comment on above: Performed By: #### 8 2948 ####NURSING GLUCOSE WNLMYZY7520 [place], [address] Glucose [Mass/Vol] 221 mg/dL High 80-116 [facility] Comment on above: Performed By: #### 8 2948 ####NURSING GLUCOSE YDSVJBH7045 [place], [address] MAGNESIUMon 12-13-2020 Magnesium [Mass/Vol] 1.9 mg/dL Normal 1.6-2.8 [facility] Comment on above: Result Comment: Hemo lysis present Performed By: #### C H8, MG ####[facility] PATH[facility] UMERITBKKR9668 [place], Progress Noteson 12-13-2020 Mandrel Cleaner Authentication Interface Message Text SW obtained SS Number: [id number] [facility] Please alert SW when pt is nearing DC. Pt with +Chest Tube. [id number] submitted [facility] Isabel MorrisonLITTLE [facility] [phone] Normal [facility] Mandrel Cleaner Authentication Interface Message Text Normal [facility] Mandrel Cleaner Authentication Interface Message Text Normal [facility] XR CHEST AP OR PA 1 VIEWon 0 12-13-2020 XR CHEST AP OR PA 1 VIEW Normal [facility] BASIC METABOLIC PANELon 11-22 Anion gap [Moles/Vol] 12 mmol/L Normal 5-13 [facility] Comment on above: Performed By: #### NEREIDA Santos, MG ####[facility] PATH[facility] RZODFUICYV6596 [place], Calcium [Mass/Vol] 7.3 mg/dL Low 8.4-10.4 [facility] Comment on above: Performed By: #### HASMUKH SantosS, MG ####[facility] PATH[facility] [id number] [place], Chloride [Moles/Vol] 103 mmol/L Normal 97-111 [facility] Comment on above: Performed By: #### Sofia HMarilee, PHOS, MG ####[facility] PATH[facility]Y KXTZALZKHQ0712 [place], CO2 [Moles/Vol] 22 mmol/L Normal 21-30 [facility] Comment on above: Performed By: #### NEREIDA Santos MG ####[facility] PATHOLOGY [id number] [place], Creatinine [Mass/Vol] 0.85 mg/dL Normal 0.80-1.30 [facility] Comment on above: Performed By: #### NEREIDA Santos MG ####[facility] PATHOLOGY AZYIWPPXZQ2690 [place], ESTIMATED GFR (CKD-EPI) 92 mL/min/1.73sqm Normal >=60 [facility] Comment on above: Performed By: #### NEREIDA Santos MG ####[facility] PATHOLOGY MOPOSWCTOW9461 [place], Glucose [Mass/Vol] 196 mg/dL High 80-116 [facility] Comment on above: Performed By: #### NEREIDA Santos MG ####[facility] MMWPSLFMXG6376 [place], Potassium [Moles/Vol] 4.2 mmol/L Normal 3.3-5.3 [facility] Comment on above: Performed By: #### NEREIDA Santos MG ####[facility] PATH[facility] YBKNRSNTNO9417 [place], Sodium [Moles/Vol] 133 mmol/L Low 135-148 [facility] Comment on above: Performed By: #### NEREIDA Santos MG ####[facility] PATH[facility]Y ROQCIMUULK0198 [place], Urea nitrogen [Mass/Vol] 20 mg/dL Normal 8-22 [facility] Comment on above: Performed By: #### NEREIDA Santos MG ####[facility] PATH[facility]Y MIWOREZVPB8856 [place], COMPLETE BLOOD COUNTon 12-12 Erythrocyte distribution width (RBC) [Ratio] 15.2 % High 11.5-14.5 [facility] Comment on above: Performed By: #### Sofia BC ####[facility] PATH[facility]Y WGSZGCZSYN0356 [place], Hematocrit (Bld) [Volume fraction] 23.7 % Low 41.0-53.0 [facility] Comment on above: Performed By: #### C BC ####[facility] PATHOLOGY [id number] [place], Hemoglobin (Bld) [Mass/Vol] 7.6 g/dL Low 13.9-16.3 [facility] Comment on above: Performed By: #### C BC ####[facility] PATHOLOGY [id number] [place], MCH (RBC) [Entitic mass] 29.1 pg Normal 26.0-34.0 [facility] Comment on above: Performed By: #### C BC ####[facility] PATHOLOGY TGYBTGUHWJ8551 [place], MCHC (RBC) [Mass/Vol] 32.2 g/dL Normal 32.0-35.9 [facility] Comment on above: Performed By: #### C BC ####[facility] PATHOLOGY [id number] [place], MCV (RBC) [Entitic vol] 91 fL Normal 80-100 [facility] Comment on above: Performed By: #### C BC ####[facility] PATHOLOGY [id number] [place], Platelet mean volume (Bld) [Entitic vol] 7.0 fL Low 7.5-11.2 [facility] Comment on above: Performed By: #### C BC ####[facility] PATHOLOGY [id number] [place], Platelets (Bld) [#/Vol] 593 10*3/uL High 150-400 [facility] Comment on above: Performed By: #### C BC ####[facility] PATHOLOGY [id number] [place], RBC (Bld) [#/Vol] 2.62 10*6/uL Low 4.50-5.90 [facility] [facility] Comment on above: Performed By: #### C BC ####[facility] PATHOLOGY [id number] [place], [place], WBC (Bld) [#/Vol] 13.6 10*3/uL High 4.5-11.5 [facility] Comment on above: Performed By: #### C ####S PATHOLOGY [id number] [place], [place], CT CHEST W/O CONTRASTon 11-22 CT CHEST W/O CONTRAST Normal [facility] Care Plan Noteon 12-12-2020 Mandrel Cleaner Authentication Interface Message Text Normal [facility] Consultson 12-12-2020 Mandrel Cleaner Authentication Interface Message Text Normal [facility] Mandrel Cleaner Authentication Interface Message Text Normal [facility] GLUCOSE, FINGERSTICK-IN OFFI CEon 12-12-2020 Glucose [Mass/Vol] 264 mg/dL High 80-116 [facility] Comment on above: Result Comment: Javier childress RN, APN, MD Performed By: #### 8 8564 ####NURSING GLUCOSE [id number] [place], [address] Glucose [Mass/Vol] 250 mg/dL High 80-116 [facility] Comment on above: Result Comment: Javier childress RN, APN, MD Performed By: #### 8 2668 ####NURSING GLUCOSE HOKCJXD4282 [place], [address] Glucose [Mass/Vol] 217 mg/dL High 80-116 [facility] Comment on above: Result Comment: Javier childress RN, APN, MD Performed By: #### 8 2924 ####NURSING GLUCOSE [id number] [place], [address] Glucose [Mass/Vol] 163 mg/dL High 80-116 [facility] Comment on above: Result Comment: Javier childress RN, APN, MD Performed By: #### 8 6801 ####NURSING GLUCOSE [id number] [place], [address] Glucose [Mass/Vol] 270 mg/dL High 80-116 [facility] Comment on above: Performed By: #### 8 5527 ####NURSING GLUCOSE [id number] [place], [address] MAGNESIUMon 12-12-2020 Magnesium [Mass/Vol] 2.1 mg/dL Normal 1.6-2.8 [facility] Comment on above: Performed By: ###NEREIDA Rutherford MG ####[facility] [id number] [place], PHOSPHORUSon 12-12-2020 Phosphate [Mass/Vol] 3.0 mg/dL Normal 2.5-4.8 [facility] Comment on above: Performed By: ###NEREIDA Rutherford MG ####[facility] PATHOLOGY [id number] [place], Progress Noteson 12-12-2020 Mandrel Cleaner Authentication Interface Message Text Normal [facility] Mandrel Cleaner Authentication Interface Message Text Normal [facility] XR CHEST AP OR PA 1 VIEWon 0 12-12-2020 XR CHEST AP OR PA 1 VIEW Normal [facility] ANTI FXA-LMW HEPARINon 12-11 ANTI FXA-LMW HEPARIN ASSAY 0.04 IU/mL Normal [facility] Comment on above: Order Comment: The r ecommended therapeutic range for treatment of thrombosis with Low Molecular Weight Heparin is 0.5 - 1.0 IU/mLThe recommended range for VTE prophylaxis with Low Molecular Weight Heparin is 0.2 - 0.4 IU/mL. Performed By: #### A XL ####[facility] PATHOLOGY [id number] [place], BASIC METABOLIC PANELon 11-22 Anion gap [Moles/Vol] 15 mmol/L High 5-13 [facility] Comment on above: Performed By: #### JUSTINA Sales ####[facility] [id number] [place], Calcium [Mass/Vol] 7.3 mg/dL Low 8.4-10.4 [facility] Comment on above: Performed By: ###JUSTINA Byrd ####[facility] IGDJRYOQMC2686 [place], Chloride [Moles/Vol] 99 mmol/L Normal 97-111 [facility] Comment on above: Performed By: ###JUSTINA Byrd ####[facility] PATHOLOGY [id number] [place], CO2 [Moles/Vol] 19 mmol/L Low 21-30 [facility] Comment on above: Performed By: #### Rosa Wells, JASON8 ####[facility] PATHOLOGY [id number] [place], Creatinine [Mass/Vol] 0.79 mg/dL Low 0.80-1.30 [facility] Comment on above: Performed By: #### Rosa Wells, JASON8 ####[facility] PATHOLOGY [id number] [place] [address], ESTIMATED GFR (CKD-EPI) 95 mL/min/1.73sqm Normal >=60 [facility] Comment on above: Performed By: #### Rosa Wells CH8 ####[facility] PATHOLOGY [id number] [place] [address], Glucose [Mass/Vol] 212 mg/dL High 80-116 [facility] Comment on above: Performed By: #### Rosa Wells CH8 ####[facility] PATHOLOGY [id number] [place] [address], Potassium [Moles/Vol] 5.0 mmol/L Normal 3.3-5.3 [facility] Comment on above: Result Comment: Hemo lysis present Performed By: #### Rosa Wells CH8 ####[facility] PATHOLOGY [id number] [place] [address], Sodium [Moles/Vol] 128 mmol/L Low 135-148 [facility] Comment on above: Performed By: #### Rosa Wells CH8 ####[facility] PATHOLOGY [id number] [place] [address], Urea nitrogen [Mass/Vol] 17 mg/dL Normal 8-22 [facility] Comment on above: Performed By: #### Rosa Wells, JASON8 ####[facility] PATHOLOGY [id number] [place] [address], COMPLETE BLOOD COUNTon 12-11 Erythrocyte distribution width (RBC) [Ratio] 15.3 % High 11.5-14.5 [facility] Comment on above: Performed By: #### Sofia BC ####[facility] PATHOLOGY [id number] [place], Hematocrit (Bld) [Volume fraction] 29.4 % Low 41.0-53.0 [facility] Comment on above: Performed By: #### C BC ####[facility] PATHOLOGY [id number] [place], Hemoglobin (Bld) [Mass/Vol] 9.7 g/dL Low 13.9-16.3 [facility] Comment on above: Performed By: #### C BC ####[facility] PATHOLOGY [id number] [place], MCH (RBC) [Entitic mass] 29.6 pg Normal 26.0-34.0 [facility] Comment on above: Performed By: #### C BC ####[facility] PATHOLOGY [id number] [place], MCHC (RBC) [Mass/Vol] 32.9 g/dL Normal 32.0-35.9 [facility] Comment on above: Performed By: #### C BC ####[facility] PATHOLOGY [id number] [place], MCV (RBC) [Entitic vol] 90 fL Normal 80-100 [facility] Comment on above: Performed By: #### C BC ####[facility] PATHOLOGY [id number] [place], Platelet mean volume (Bld) [Entitic vol] 7.3 fL Low 7.5-11.2 [facility] Comment on above: Performed By: #### C BC ####[facility] PATHOLOGY [id number] [place], Platelets (Bld) [#/Vol] 433 10*3/uL High 150-400 [facility] Comment on above: Performed By: #### C BC ####[facility] PATHOLOGY [id number] [place], RBC (Bld) [#/Vol] 3.26 10*6/uL Low 4.50-5.90 [facility] Comment on above: Performed By: #### C BC ####S PATHOLOGY [id number] [place], WBC (Bld) [#/Vol] 14.5 10*3/uL High 4.5-11.5 [facility] Comment on above: Performed By: #### C BC ####S PATHOLOGY [id number] [place], Care Plan Noteon 12-11-2020 Mandrel Cleaner Authentication Interface Message Text Normal [facility] Consultson 12-11-2020 Mandrel Cleaner Authentication Interface Message Text Normal [facility] Mandrel Cleaner Authentication Interface Message Text Normal [facility] Mandrel Cleaner Authentication Interface Message Text Normal [facility] GLUCOSE, FINGERSTICK-IN OFFI CEon 12-11-2020 Glucose [Mass/Vol] 242 mg/dL High 80-116 [facility] Comment on above: Result Comment: Javier childress RN, APN, MD Performed By: #### 8 2948 ####NURSING GLUCOSE [id number] [place], [address] Glucose [Mass/Vol] 219 mg/dL High 80-116 [facility] Comment on above: Result Comment: Javier childress RN, APN, MD Performed By: #### 8 2948 ####NURSING GLUCOSE ITDJDMS5256 [place], [address] Glucose [Mass/Vol] 194 mg/dL High 80-116 [facility] Comment on above: Result Comment: Javier childress RN, APN, MD Performed By: #### 8 2948 ####NURSING GLUCOSE WHLOWCC7403 [place], [address] MAGNESIUMon 12-11-2020 Magnesium [Mass/Vol] 1.8 mg/dL Normal 1.6-2.8 [facility] Comment on above: Result Comment: Hemo lysis present Performed By: #### Rosa Wells CH8 ####S PATHOLOGY [id number] [place] [address], Progress Noteson 12-11-2020 Mandrel Cleaner Authentication Interface Message Text Normal [facility]er Authentication Interface Message Text Chart and images reviewed with Dr. Loyd. Pigtail placed 12/08; pleural cultures +strep. No recent CT chest after tube placement. Please perform non-contrast CT chest Full note to follow pending results Nba Chow PA-C Normal [facility] Mandrel Cleaner Authentication Interface Message Text Normal [facility] Mandrel Cleaner Authentication Interface Message Text Normal [facility] Mandrel Cleaner Authentication Interface Message Text Normal [facility] VANCOMYCIN TROUGHon 12-12-19 21 VANC TR 13.1 ug/mL Normal 10.0-20.0 [facility] Comment on above: Performed By: #### V ANC TR ####[facility] PATH[facility]Y [id number] [place], [address] XR CHEST AP OR PA 1 VIEWon 0 12-11-2020 XR CHEST AP OR PA 1 VIEW Normal [facility] Care Plan Noteon 12-10-2020 Mandrel Cleaner Authentication Interface Message Text Normal [facility] GLUCOSE, FINGERSTICK-IN OFFI CEon 12-10-2020 Glucose [Mass/Vol] 252 mg/dL High 80-116 [facility] Comment on above: Result Comment: Javier childress RN, APN, MD Performed By: #### 8 2948 ####NURSING GLUCOSE [id number] [place], [address] Glucose [Mass/Vol] 198 mg/dL High 80-116 [facility] Comment on above: Performed By: #### 8 2948 ####NURSING GLUCOSE LIEZJRG8196 [place], [address] Glucose [Mass/Vol] 269 mg/dL High 80-116 [facility] Comment on above: Performed By: #### 8 2948 ####NURSING GLUCOSE TZKCCBP6992 [place], [address] Glucose [Mass/Vol] 194 mg/dL High 80-116 [facility] Comment on above: Performed By: #### 8 2948 ####NURSING GLUCOSE EFUGVKZ4512 [place], [address] Glucose [Mass/Vol] 186 mg/dL High 80-116 [facility] Comment on above: Result Comment: Javier childress RN, APN, MD Performed By: #### 8 2948 ####NURSING GLUCOSE QGRKBDY1543 [place], [address] Progress Noteson 12-10-2020 Mandrel Cleaner Authentication Interface Message Text Normal [facility] Mandrel Cleaner Authentication Interface Message Text Normal [facility] Mandrel Cleaner Authentication Interface Message Text Normal [facility] VANCOMYCIN TROUGHon 12-11-19 21 VANC TR 14.2 ug/mL Normal 10.0-20.0 [facility] Comment on above: Performed By: #### V ANC TR ####[facility] BZZHEYGAVS3627 [place], ANTI FXA-LMW HEPARINon 12-09 ANTI FXA-LMW HEPARIN ASSAY 0.24 IU/mL Normal [facility] Comment on above: Order Comment: The r ecommended therapeutic range for treatment of thrombosis with Low Molecular Weight Heparin is 0.5 - 1.0 IU/mLThe recommended range for VTE prophylaxis with Low Molecular Weight Heparin is 0.2 - 0.4 IU/mL. Performed By: #### A XL ####[facility] PATH[facility]Y [id number] [place], BASIC METABOLIC PANELon 11-21 Anion gap [Moles/Vol] 12 mmol/L Normal 5-13 [facility] Comment on above: Performed By: #### V AL, PHOS, MG, CH8 ####S PATHOLOGY [id number] [place], Calcium [Mass/Vol] 7.4 mg/dL Low 8.4-10.4 [facility] Comment on above: Performed By: #### V AL, PHOS, MG, CH8 ####[facility] PATH[facility]Y [id number] [place], Chloride [Moles/Vol] 98 mmol/L Normal 97-111 [facility] Comment on above: Performed By: #### V AL, PHOS, MG, CH8 ####[facility] PATH[facility] [id number] [place], CO2 [Moles/Vol] 26 mmol/L Normal 21-30 [facility] Comment on above: Performed By: #### V AL, PHOS, MG, CH8 ####[facility] PATH[facility]Y [id number] [place], Creatinine [Mass/Vol] 0.87 mg/dL Normal 0.80-1.30 [facility] Comment on above: Performed By: #### V ALHASMUKHS MG, CH8 ####[facility] PATH[facility]Y [id number] [place], ESTIMATED GFR (CKD-EPI) 91 mL/min/1.73sqm Normal >=60 [facility] Comment on above: Performed By: #### Mikala AL PHOS MG, CH8 ####[facility] PATH[facility]Y ESWHCQIKID8966 [place], Glucose [Mass/Vol] 265 mg/dL High 80-116 [facility] Comment on above: Performed By: #### V AL PHOS MG, CH8 ####[facility] PATH[facility] [id number] [place], Potassium [Moles/Vol] 3.8 mmol/L Normal 3.3-5.3 [facility] Comment on above: Performed By: #### Mikala AL PHOS MG, CH8 ####[facility]Y ANMIDMHZTT9775 [place], Sodium [Moles/Vol] 132 mmol/L Low 135-148 [facility] Comment on above: Performed By: #### Mikala AL PHOS MG, CH8 ####S PATHOLOGY [id number] [place], Urea nitrogen [Mass/Vol] 22 mg/dL Normal 8-22 [facility] Comment on above: Performed By: #### V AL PHOS MG, CH8 ####[facility]Y [id number] [place], CALCIUM, IONIZEDon CR ICA 1.09 mmol/L Low 1.10-1.40 [facility] Comment on above: Performed By: #### C R ICA ####[facility] PATH[facility]Y LNOGYTVHAD8106 [place], COMPLETE BLOOD COUNTon 12-09 Erythrocyte distribution width (RBC) [Ratio] 15.0 % High 11.5-14.5 [facility] Comment on above: Performed By: #### C BC ####[facility] PATHOLOGY [id number] [place], Hematocrit (Bld) [Volume fraction] 24.1 % Low 41.0-53.0 [facility] Comment on above: Performed By: #### C BC ####[facility] PATHOLOGY [id number] [place], Hemoglobin (Bld) [Mass/Vol] 8.1 g/dL Low 13.9-16.3 [facility] Comment on above: Performed By: #### C BC ####[facility] PATHOLOGY [id number] [place], MCH (RBC) [Entitic mass] 30.1 pg Normal 26.0-34.0 [facility] Comment on above: Performed By: #### C BC ####[facility] PATHOLOGY [id number] [place], MCHC (RBC) [Mass/Vol] 33.5 g/dL Normal 32.0-35.9 [facility] Comment on above: Performed By: #### C BC ####[facility] PATHOLOGY [id number] [place], MCV (RBC) [Entitic vol] 90 fL Normal 80-100 [facility] Comment on above: Performed By: #### C BC ####[facility] PATHOLOGY [id number] [place], Platelet mean volume (Bld) [Entitic vol] 8.2 fL Normal 7.5-11.2 [facility] Comment on above: Performed By: #### C BC ####[facility] PATHOLOGY [id number] [place], Platelets (Bld) [#/Vol] 428 10*3/uL High 150-400 [facility] Comment on above: Performed By: #### C BC ####[facility] PATHOLOGY [id number] [place], RBC (Bld) [#/Vol] 2.68 10*6/uL Low 4.50-5.90 [facility] Comment on above: Performed By: #### C BC ####[facility] NTCZZSGJJK8367 [place], WBC (Bld) [#/Vol] 16.2 10*3/uL High 4.5-11.5 [facility] Comment on above: Performed By: #### C BC ####[facility] PATHOLOGY EDOGNXFLZF7451 [place], Care Plan Noteon 12-09-2020 Mandrel Cleaner Authentication Interface Message Text Normal [facility] GLUCOSE, FINGERSTICK-IN OFFI CEon 12-09-2020 Glucose [Mass/Vol] 319 mg/dL High 80-116 [facility] Comment on above: Performed By: #### 8 2948 ####NURSING GLUCOSE NPPMSOZ2128 [place], [address] Glucose [Mass/Vol] 304 mg/dL High 80-116 [facility] Comment on above: Performed By: #### 8 2948 ####NURSING GLUCOSE [id number] [place], [address] Glucose [Mass/Vol] 285 mg/dL High 80-116 [facility] Comment on above: Performed By: #### 8 2948 ####NURSING GLUCOSE [id number] [place], [address] Glucose [Mass/Vol] 279 mg/dL High 80-116 [facility] Comment on above: Performed By: #### 8 2948 ####NURSING GLUCOSE FMGPRER6873 [place], [address] Glucose [Mass/Vol] 368 mg/dL High 80-116 [facility] Comment on above: Performed By: #### 8 2948 ####NURSING GLUCOSE MYFUMQZ5609 [place], [address] MAGNESIUMon 12-09-2020 Magnesium [Mass/Vol] 2.0 mg/dL Normal 1.6-2.8 [facility] Comment on above: Performed By: #### V AL, PHOS, MG, CH8 ####[facility] PATH[facility]Y ZEGLIMHZYY4962 [place], PHOSPHORUSon 12-09-2020 Phosphate [Mass/Vol] 2.9 mg/dL Normal 2.5-4.8 [facility] Comment on above: Performed By: #### NEREIDA RICKETTS MG, CH8 ####[facility] XALRLIWAVR0580 [place], Progress Noteson 12-09-2020 Mandrel Cleaner Authentication Interface Message Text Patient received the Sacrament of the ANOINTING OF THE SICK from Fr. Shaggy Ornelas ([phone]). Normal [facility] Mandrel Cleaner Authentication Interface Message Text Normal [facility] VALPROIC ACIDon 12-09-2020 FRANCOISE 19 ug/mL Low 50-100 [facility] Comment on above: Performed By: #### NEREIDA RICKETTS MG, CH8 ####[facility] [id number] [place], XR CHEST AP OR PA 1 VIEWon 0 12-09-2020 XR CHEST AP OR PA 1 VIEW Normal [facility] AEROBIC BODY FLUID CULTUREon 12-08-2020 AEROBIC BODY FLUID CULTURE Normal [facility] Comment on above: Performed By: #### C BDYFLD ####[facility] Wcztkpvxs8732 [place], [place] BASIC METABOLIC PANELon 11-21 Anion gap [Moles/Vol] 13 mmol/L Normal 5-13 [facility] Comment on above: Performed By: #### JUSTINA Sales, PHOS ####[facility] PATH[facility] CDIRZRLNRE2587 [place], Calcium [Mass/Vol] 7.5 mg/dL Low 8.4-10.4 [facility] Comment on above: Performed By: #### JUSTINA Sales, PHOS ####[facility]Y [id number] [place], Chloride [Moles/Vol] 97 mmol/L Normal 97-111 [facility] Comment on above: Performed By: #### JUSTINA Sales, PHOS ####[facility] [id number] [place], CO2 [Moles/Vol] 28 mmol/L Normal 21-30 [facility] Comment on above: Performed By: #### JUSTINA Sales, PHOS ####[facility] PATH[facility] [id number] [place], Creatinine [Mass/Vol] 1.09 mg/dL Normal 0.80-1.30 [facility] Comment on above: Performed By: #### JUSTINA Sales, PHOS ####[facility] PATH[facility] XBZSZTJPGS6413 [place], ESTIMATED GFR (CKD-EPI) 71 mL/min/1.73sqm Normal >=60 [facility] Comment on above: Performed By: #### JUSTINA Sales, PHOS ####[facility] PGKUWGGWYS4117 [place], Glucose [Mass/Vol] 246 mg/dL High 80-116 [facility] Comment on above: Performed By: #### JUSTINA Sales, HASMUKHS ####[facility] PATH[facility]Y IERCTPFXFQ9568 [place], Potassium [Moles/Vol] 3.7 mmol/L Normal 3.3-5.3 [facility] Comment on above: Performed By: #### JUSTINA Sales, PHOS ####[facility] ELLVODERVW3627 [place], Sodium [Moles/Vol] 134 mmol/L Low 135-148 [facility] Comment on above: Performed By: #### JUSTINA Sales, PHOS ####[facility] LDNFPDLRPS9259 [place], Urea nitrogen [Mass/Vol] 25 mg/dL High 8-22 [facility] Comment on above: Performed By: #### JUSTINA Sales, PHOS ####[facility] [id number] [place], BLOOD GAS, ARTERIALon 2020 CR LESA 4.9 mmol/L High -2.0-2.0 [facility] Comment on above: Performed By: #### Sofia R BGA ####[facility] YOQLTIGFTT8504 [place], CR PCO2 39.6 mm Hg Normal 35.0-45.0 [facility] Comment on above: Performed By: #### C R BGA ####S PATHOLOGY QROHNSJPHB3475 [place], CR PHA 7.471 High 7.35-7.45 [facility] Comment on above: Performed By: #### C R BGA ####[facility] PATHOLOGY [id number] [place], CR PO2 82 mm Hg Normal 80-100 mm Hg [facility] Comment on above: Performed By: #### C R BGA ####[facility] PATHOLOGY [id number] [place], FIO2 (CATEGORY) 40% Normal [facility] Comment on above: Result Comment: 40L Performed By: #### C R BGA ####[facility] PATHOLOGY [id number] [place], HCO3 (Bld) [Moles/Vol] 29 mmol/L High 22-28 [facility] Comment on above: Performed By: #### C R BGA ####[facility] PATHOLOGY [id number] [place], MODE Nasal [place] Normal [facility] Comment on above: Result Comment: HFNC Performed By: #### C R BGA ####S PATHOLOGY [id number] [place], Oxygen saturation in Blood 96.9 % Normal >=95.1 [facility] Comment on above: Performed By: #### C R BGA ####S PATHOLOGY HHWQIUYDBC8926 [place], CALCIUM, IONIZEDon CR ICA 1.05 mmol/L Low 1.10-1.40 [facility] Comment on above: Performed By: #### L ACT, CR ICA ####S PATHOLOGY FJILIYKNBJ5529 [place], COMPLETE BLOOD COUNTon 12-08 Erythrocyte distribution width (RBC) [Ratio] 14.8 % High 11.5-14.5 [facility] Comment on above: Performed By: #### C BC ####[facility] PATHOLOGY [id number] [place], Hematocrit (Bld) [Volume fraction] 23.4 % Low 41.0-53.0 [facility] Comment on above: Performed By: #### C BC ####[facility] PATHOLOGY [id number] [place], Hemoglobin (Bld) [Mass/Vol] 7.7 g/dL Low 13.9-16.3 [facility] Comment on above: Performed By: #### C BC ####[facility] PATHOLOGY [id number] [place], MCH (RBC) [Entitic mass] 30.0 pg Normal 26.0-34.0 [facility] Comment on above: Performed By: #### C BC ####[facility] PATHOLOGY [id number] [place], MCHC (RBC) [Mass/Vol] 32.8 g/dL Normal 32.0-35.9 [facility] Comment on above: Performed By: #### C BC ####[facility] PATHOLOGY [id number] [place], MCV (RBC) [Entitic vol] 92 fL Normal 80-100 [facility] Comment on above: Performed By: #### C BC ####[facility] PATHOLOGY [id number] [place], Platelet mean volume (Bld) [Entitic vol] 8.5 fL Normal 7.5-11.2 [facility] Comment on above: Performed By: #### C BC ####[facility] PATHOLOGY [id number] [place], Platelets (Bld) [#/Vol] 339 10*3/uL Normal 150-400 [facility] Comment on above: Performed By: #### C BC ####[facility] PATHOLOGY [id number] [place], RBC (Bld) [#/Vol] 2.55 10*6/uL Low 4.50-5.90 [facility] Comment on above: Performed By: #### C BC ####[facility] [id number] [place], WBC (Bld) [#/Vol] 17.9 10*3/uL High 4.5-11.5 [facility] [facility] Comment on above: Performed By: #### C BC ####[facility] [id number] [place], [place], CT CHEST/ABD/PELVIS W/ CONTR Pattie 12-08-2020 CT CHEST/ABD/PELVIS W/ CONTRAST [facility] Noteon 12-08-2020 Mandrel Cleaner Authentication Interface Message Text Normal [facility] Consultson 12-08-2020 Mandrel Cleaner Authentication Interface Message Text Normal [facility] Mandrel Cleaner Authentication Interface Message Text Normal [facility] GLUCOSE, FINGERSTICK-IN OFFI CEon 12-08-2020 Glucose [Mass/Vol] 253 mg/dL High 80-116 [facility] Comment on above: Performed By: #### 8 2948 ####NURSING GLUCOSE [id number] [place], [address] Glucose [Mass/Vol] 193 mg/dL High 80-116 [facility] Comment on above: Result Comment: Foll ow Protocol Performed By: #### 8 2948 ####NURSING GLUCOSE [id number] [place], [address] Glucose [Mass/Vol] 252 mg/dL High 80-116 [facility] Comment on above: Performed By: #### 8 2948 ####NURSING GLUCOSE [id number] [place], [address] H AND Glenn 12-08-2020 Mandrel Cleaner Authentication Interface Message Text Normal [facility] LACTIC ACIDon 12-08-2020 CR LACT 1.4 mmol/L Normal 0.5-2.0 [facility] Comment on above: Performed By: #### L ACT, CR ICA ####[facility] [id number] [place], MAGNESIUMon 12-08-2020 Magnesium [Mass/Vol] 2.0 mg/dL Normal 1.6-2.8 [facility] Comment on above: Performed By: #### JUSTINA Sales, PHOS ####[facility] [id number] [place], PARTIAL THROMBOPLASTIN TIMEo n 12-08-2020 aPTT Coag (Bld) [Time] 26 s Normal 25-37 [facility] Comment on above: Performed By: #### P T, APTT ####[facility] [id number] [place], PHOSPHORUSon 12-08-2020 Phosphate [Mass/Vol] 3.7 mg/dL Normal 2.5-4.8 [facility] Comment on above: Performed By: #### JUSTINA Sales, PHOS ####[facility] [id number] [place], PROTHROMBIN TIME AND INRon 0 12-08-2020 INR Coag (PPP) [Relative time] 1.30 {INR} High 0.90-1.10 [facility] Comment on above: Performed By: #### P T, APTT ####[facility] [id number] [place], PT Coag (PPP) [Time] 14.7 s High 9.7-12.9 [facility] Comment on above: Performed By: #### P T, APTT ####[facility] [id number] [place], Procedureson 12-08-2020 Mandrel Cleaner Authentication Interface Message Text Normal [facility] Progress Noteson 12-08-2020 Mandrel Cleaner Authentication Interface Message Text Normal [facility] Mandrel Cleaner Authentication Interface Message Text Normal [facility] Mandrel Cleaner Authentication Interface Message Text Normal [facility] Mandrel Cleaner Authentication Interface Message Text 0200- Pt admitted to the [facility]. Deaf talks interpretation ipad at the bedside [...] Discharge Summaryon 03-29-20 Discharge Summary MR#: [id number] [facility] Pt. 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 The donkey doctor indicated that thepatient is fixated on his job at [employer]. He goes back to [facility] discussing discharge planning. The prognosis and discharge plan werediscussed with the brother and close family friend who were present in theroom. The patient was discharged to snf facility.DISCHARGE MEDICATIONS: Following home medications were continued:Carbamazepine [...] stable condition. The patient was dischargedto a snf facility. Instructions to primary care physician.Please follow up within 1 week of discharge. Please review the patient'sdiabetic medication regimen and please follow with the patient's seizuredisorder and oral anti-seizure medication regimen.Electronically Signed by:Pop Dukes M.D. 04/11/2017 09:07 A Pop Dukes M.D...Date Dict: 03/28/2017/07:39 P/Symone Colunga Trans: 03/29/2017 03:44 A/Dennis_JN:[id number]: Gasper Thurman D.O. [address] [place] [id number] Normal [facility] BASIC METABOLIC PANELon 10-0 Calcium 8.7 mg/dL Normal 8.6-10.3 [facility] Comment on above: Order Comment: Other , right weakness left gaze pref Performed By: #### 1 0070, 07418 ####[facility] [place] [address], [email or web address]] Chloride 103 mmol/L Normal 98-107 [facility] Comment on above: Order Comment: Other , right weakness left gaze pref Performed By: #### 1 0070, 46069 ####[facility] [place] [address], [facility] [[email or web address]] CO2 27 mmol/L Normal 21-31 [facility] Comment on above: Order Comment: Other , right weakness left gaze pref Performed By: #### 1 69, 06277 ####[facility] Creatinine 0.97 mg/dL Normal 0.70-1.30 [facility] Comment on above: Order Comment: Other , right weakness left gaze pref Performed By: #### 1 69, 28334 ####[facility] eGFR (black) mL/min/{1.73_m2} Normal >60 [facility] Comment on above: Order Comment: Other , right weakness left gaze pref Performed By: #### 1 69, 98711 ####[facility] eGFR (non-black) mL/min/{1.73_m2} Normal >60 [facility] Comment on above: Order Comment: Other , right weakness left gaze pref Performed By: #### 1 69, 34126 ####[facility] Glucose mass conc 161 mg/dL High 70-100 [facility] Comment on above: Order Comment: Other , right weakness left gaze pref Performed By: #### 1 69, 71783 ####[facility] Potassium molar conc 3.8 mmol/L Normal 3.5-5.1 [facility] Comment on above: Order Comment: Other , right weakness left gaze pref Performed By: #### 1 69, 97923 ####[facility] [place] [address], [facility] [[email or web address]] Sodium 139 mmol/L Normal 136-145 [facility] Comment on above: Order Comment: Other , right weakness left gaze pref Performed By: #### 1 0070, 46776 ####[facility] Urea nitrogen 27 mg/dL High 7-25 [facility] Comment on above: Order Comment: Other , right weakness left gaze pref Performed By: #### 1 0, 64652 ####[facility] CBC COMPLETE BLOOD COUNTon Erythrocyte distribution width Auto Ratio (RBC) 13.4 % Normal 11.5-16.9 [facility] Comment on above: Order Comment: Other , right weakness left gaze pref Performed By: #### 5 0608 ####[place] [id number] Erythrocytes (RBC) 4.43 mill/mm3 Normal 4.30-5.90 [facility] Comment on above: Order Comment: Other , right weakness left gaze pref Performed By: #### 5 0608 ####[facility] Hematocrit (HCT) 39.9 % Normal 39.0-55.0 [facility] Comment on above: Order Comment: Other , right weakness left gaze pref Performed By: #### 5 0608 ####[facility] Hemoglobin mass conc (Bld) 13.1 g/dL Low 13.9-16.3 [facility] Comment on above: Order Comment: Other , right weakness left gaze pref Performed By: #### 5 0608 ####[facility] MCH 29.5 pg Normal 24.0-32.0 [facility] Comment on above: Order Comment: Other , right weakness left gaze pref Performed By: #### 5 0608 ####[facility] MCHC mass conc (RBC) 32.7 g/dL Normal 32.0-36.0 [facility] Comment on above: Order Comment: Other , right weakness left gaze pref Performed By: #### 5 0608 ####[facility] [facility].[address] MCV 90.1 fL Normal 80.0-100.0 [facility] Comment on above: Order Comment: Other , right weakness left gaze pref Performed By: #### 5 0608 ####[facility] [facility].[address] PLAT CNT 204 Thou/mm3 Normal 100-400 [facility] Comment on above: Order Comment: Other , right weakness left gaze pref Performed By: #### 5 0608 ####[facility] [facility].[address] WBC (Leukocytes) 5.1 Thou/mm3 Normal 4.0-10.0 [facility] Comment on above: Order Comment: Other , right weakness left gaze pref Performed By: #### 5 0608 ####[facility] [facility].[address] MAGNESIUM BLOODon 03-28-2017 Magnesium 2.2 mg/dL Normal 1.9-2.7 [facility] Comment on above: Order Comment: Other , right weakness left gaze pref Performed By: #### 1 0070, 57463 ####[facility] [facility].[address] POC GLUCOSE LABon 03-28-2017 Glucose mass conc 248 mg/dL High 70-100 [facility] Comment on above: Performed By: #### 8 5499 ####[facility] [facility].[address] Glucose mass conc 250 mg/dL High 70-100 [facility] Comment on above: Performed By: #### 8 5499 ####[facility] [place] [address], [facility] [[email or web address]] Glucose mass conc 155 mg/dL High 70-100 [facility] Comment on above: Performed By: #### 8 5499 ####[facility] [place] [address], [facility] [[email or web address]] Glucose mass conc 160 mg/dL High 70-100 [facility] Comment on above: Performed By: #### 8 5499 ####[facility] [place] [address], [facility] [[email or web address]] BASIC METABOLIC PANELon 10-0 Calcium 9.0 mg/dL Normal 8.6-10.3 [facility] Comment on above: Order Comment: Other , right weakness left gaze pref Performed By: #### 0 0071, 06878 ####[facility] [place] [address], [facility] [[email or web address]] Chloride 101 mmol/L Normal 98-107 [facility] Comment on above: Order Comment: Other , right weakness left gaze pref Performed By: #### 0 0071, 69139 ####[facility] [facility] [place] [address], [facility] [[email or web address]] CO2 26 mmol/L Normal 21-31 [facility] Comment on above: Order Comment: Other , right weakness left gaze pref Performed By: #### 0 0071, 11775 ####[facility] [place] [address], [facility] [[email or web address]] Creatinine 0.93 mg/dL Normal 0.70-1.30 [facility] Comment on above: Order Comment: Other , right weakness left gaze pref Performed By: #### 0 0071, 55405 ####[facility] [place] [address], [facility] [[email or web address]] eGFR (black) mL/min/{1.73_m2} Normal >60 [facility] Comment on above: Order Comment: Other , right weakness left gaze pref Performed By: #### 0 0071, 32033 ####[facility] eGFR (non-black) mL/min/{1.73_m2} Normal >60 [facility] Comment on above: Order Comment: Other , right weakness left gaze pref Performed By: #### 0 0071, 58507 ####[facility] Glucose mass conc 178 mg/dL High 70-100 [facility] Comment on above: Order Comment: Other , right weakness left gaze pref Performed By: #### 0 0071, 96192 ####[facility] Potassium molar conc 3.8 mmol/L Normal 3.5-5.1 [facility] Comment on above: Order Comment: Other , right weakness left gaze pref Performed By: #### 0 0071, 11813 ####[facility] Sodium 138 mmol/L Normal 136-145 [facility] Comment on above: Order Comment: Other , right weakness left gaze pref Performed By: #### 0 0071, 94617 ####[facility] [facility].[address] Urea nitrogen 27 mg/dL High 7-25 [facility] Comment on above: Order Comment: Other , right weakness left gaze pref Performed By: #### 0 0071, 58236 ####[facility] CBC COMPLETE BLOOD COUNTon 1 Erythrocyte distribution width Auto Ratio (RBC) 12.9 % Normal 11.5-16.9 [facility] Comment on above: Order Comment: Other , right weakness left gaze pref Performed By: #### 5 0608 ####[facility] Erythrocytes (RBC) 4.45 mill/mm3 Normal 4.30-5.90 [facility] Comment on above: Order Comment: Other , right weakness left gaze pref Performed By: #### 5 0608 ####[facility] Hematocrit (HCT) 40.0 % Normal 39.0-55.0 [facility] Comment on above: Order Comment: Other , right weakness left gaze pref Performed By: #### 5 0608 ####[facility] Hemoglobin mass conc (Bld) 13.3 g/dL Low 13.9-16.3 [facility] Comment on above: Order Comment: Other , right weakness left gaze pref Performed By: #### 5 0608 ####[facility] MCH 29.9 pg Normal 24.0-32.0 [facility] Comment on above: Order Comment: Other , right weakness left gaze pref Performed By: #### 5 0608 ####[facility] MCHC mass conc (RBC) 33.3 g/dL Normal 32.0-36.0 [facility] Comment on above: Order Comment: Other , right weakness left gaze pref Performed By: #### 5 0608 ####[facility] MCV 89.8 fL Normal 80.0-100.0 [facility] Comment on above: Order Comment: Other , right weakness left gaze pref Performed By: #### 5 0608 ####[facility] [place] [address], [facility] [[email or web address]] PLAT CNT 224 Thou/mm3 Normal 100-400 [facility] Comment on above: Order Comment: Other , right weakness left gaze pref Performed By: #### 5 0608 ####[facility] [place] [address], [facility] [[email or web address]] WBC (Leukocytes) 7.0 Thou/mm3 Normal 4.0-10.0 [facility] Comment on above: Order Comment: Other , right weakness left gaze pref Performed By: #### 5 0608 ####[facility] [place] [address], [facility] [[email or web address]] MAGNESIUM BLOODon 03-27-2017 Magnesium 2.0 mg/dL Normal 1.9-2.7 [facility] Comment on above: Order Comment: Other , right weakness left gaze pref Performed By: #### 0 0071, 68074 ####[facility] [place] [address], [facility] [[email or web address]] POC GLUCOSE LABon 03-27-2017 Glucose mass conc 153 mg/dL High 70-100 [facility] Comment on above: Performed By: #### 8 5499 ####[facility] [place] [address], [facility] [[email or web address]] Glucose mass conc 203 mg/dL High 70-100 [facility] Comment on above: Performed By: #### 8 5499 ####[facility] [place] [address], [facility] [[email or web address]] Glucose mass conc 145 mg/dL High 70-100 [facility] Comment on above: Performed By: #### 8 5499 ####[facility] [place] [address], [facility] [[email or web address]] Glucose mass conc 175 mg/dL High 70-100 [facility] Comment on above: Performed By: #### 8 5499 ####[facility] [place] [address], [facility] [[email or web address]] BASIC METABOLIC PANELon Calcium 9.1 mg/dL Normal 8.6-10.3 [facility] Comment on above: Order Comment: Other , right weakness left gaze pref Performed By: #### 0 0071 ####[facility] [place] [address], [facility] [[email or web address]] Chloride 101 mmol/L Normal 98-107 [facility] Comment on above: Order Comment: Other , right weakness left gaze pref Performed By: #### 0 0071 ####[facility] [place] [address], [facility] [[email or web address]] CO2 25 mmol/L Normal 21-31 [facility] Comment on above: Order Comment: Other , right weakness left gaze pref Performed By: #### 0 0071 ####[facility] [place] [address], [facility] [[email or web address]] Creatinine 0.86 mg/dL Normal 0.70-1.30 [facility] Comment on above: Order Comment: Other , right weakness left gaze pref Performed By: #### 0 0071 ####[facility] [place] [address], [facility] [[email or web address]] eGFR (black) mL/min/{1.73_m2} Normal >60 [facility] Comment on above: Order Comment: Other , right weakness left gaze pref Performed By: #### 0 0071 ####[facility] [place] [address], [facility] [[email or web address]] eGFR (non-black) mL/min/{1.73_m2} Normal >60 [facility] Comment on above: Order Comment: Other , right weakness left gaze pref Performed By: #### 0 0071 ####[facility] [place] [address], [facility] [[email or web address]] Glucose mass conc 134 mg/dL High 70-100 [facility] Comment on above: Order Comment: Other , right weakness left gaze pref Performed By: #### 0 0071 ####[facility] Potassium molar conc 3.8 mmol/L Normal 3.5-5.1 [facility] Comment on above: Order Comment: Other , right weakness left gaze pref Performed By: #### 0 0071 ####[facility] Sodium 139 mmol/L Normal 136-145 [facility] Comment on above: Order Comment: Other , right weakness left gaze pref Performed By: #### 0 0071 ####[facility] Urea nitrogen 26 mg/dL High 7-25 [facility] Comment on above: Order Comment: Other , right weakness left gaze pref Performed By: #### 0 0071 ####[facility] [facility].[address] CBC W/DIFFon 03-26-2017 Basophils Auto #/vol (Bld) 0.1 % Normal 0.0-2.0 [facility] Comment on above: Order Comment: Other , right weakness left gaze pref Performed By: #### 5 0103 ####[facility] Eosinophils/100 leukocytes 1.0 % Normal 0.0-5.0 [facility] Comment on above: Order Comment: Other , right weakness left gaze pref Performed By: #### 5 010 ####[facility] Erythrocyte distribution width Auto Ratio (RBC) 13.2 % Normal 11.5-16.9 [facility] Comment on above: Order Comment: Other , right weakness left gaze pref Performed By: #### 5 010 ####[facility] Erythrocytes (RBC) 4.70 mill/mm3 Normal 4.30-5.90 [facility] Comment on above: Order Comment: Other , right weakness left gaze pref Performed By: #### 5 3 ####[facility] Hematocrit (HCT) 42.4 % Normal 39.0-55.0 [facility] Comment on above: Order Comment: Other , right weakness left gaze pref Performed By: #### 5 3 ####[facility] Hemoglobin mass conc (Bld) 14.1 g/dL Normal 13.9-16.3 [facility] Comment on above: Order Comment: Other , right weakness left gaze pref Performed By: #### 5 3 ####[facility] Lymphocytes/100 leukocytes 11.7 % Low 20.0-40.0 [facility] Comment on above: Order Comment: Other , right weakness left gaze pref Performed By: #### 5 3 ####[facility] [facility].[address] MCH 30.0 pg Normal 24.0-32.0 [facility] Comment on above: Order Comment: Other , right weakness left gaze pref Performed By: #### 3 ####[facility] MCHC mass conc (RBC) 33.3 g/dL Normal 32.0-36.0 [facility] Comment on above: Order Comment: Other , right weakness left gaze pref Performed By: #### 5 3 ####[facility] MCV 90.1 fL Normal 80.0-100.0 [facility] Comment on above: Order Comment: Other , right weakness left gaze pref Performed By: #### 5 3 ####[facility] METHOD Normal RBC Morphology Normal [facility] Comment on above: Order Comment: Other , right weakness left gaze pref Performed By: #### 5 0103 ####[facility] [place] [address], [facility] [[email or web address]] MONOS 12.4 % High 2-8 [facility] Comment on above: Order Comment: Other , right weakness left gaze pref Performed By: #### 5 0103 ####[facility] [place] [address], [facility] [[email or web address]] Neutrophils/100 leukocytes 74.8 % High 50-70 [facility] Comment on above: Order Comment: Other , right weakness left gaze pref Performed By: #### 5 0103 ####[facility] [place] [address], [facility] [[email or web address]] PLAT CNT 202 Thou/mm3 Normal 100-400 [facility] Comment on above: Order Comment: Other , right weakness left gaze pref Performed By: #### 5 0103 ####[facility] [place] [address], [facility] [[email or web address]] WBC (Leukocytes) 8.6 Thou/mm3 Normal 4.0-10.0 [facility] Comment on above: Order Comment: Other , right weakness left gaze pref Performed By: #### 5 0103 ####[facility] POC GLUCOSE LABon 03-26-2017 Glucose mass conc 184 mg/dL High 70-100 [facility] Comment on above: Performed By: #### 8 5499 ####[facility] [place] [address], [facility] [[email or web address]] Glucose mass conc 211 mg/dL High 70-100 [facility] Comment on above: Performed By: #### 8 5499 ####[facility] [place] [address], [facility] [[email or web address]] Glucose mass conc 126 mg/dL High 70-100 [facility] Comment on above: Performed By: #### 8 5499 ####[facility] [place] [address], [facility] [[email or web address]] Glucose mass conc 161 mg/dL High 70-100 [facility] Comment on above: Performed By: #### 8 5499 ####[facility] [place] [address], [facility] [[email or web address]] CBC W/DIFFon 03-25-2017 Basophils Auto #/vol (Bld) 0.2 % Normal 0.0-2.0 [facility] Comment on above: Order Comment: Other , right weakness left gaze pref Performed By: #### 5 0103 ####[facility] Eosinophils/100 leukocytes 0.5 % Normal 0.0-5.0 [facility] Comment on above: Order Comment: Other , right weakness left gaze pref Performed By: #### 5 0103 ####[facility] Erythrocyte distribution width Auto Ratio (RBC) 13.0 % Normal 11.5-16.9 [facility] Comment on above: Order Comment: Other , right weakness left gaze pref Performed By: #### 5 3 ####[facility] Erythrocytes (RBC) 4.24 mill/mm3 Low 4.30-5.90 [facility] Comment on above: Order Comment: Other , right weakness left gaze pref Performed By: #### 5 0103 ####[facility] Hematocrit (HCT) 38.1 % Low 39.0-55.0 [facility] Comment on above: Order Comment: Other , right weakness left gaze pref Performed By: #### 5 0103 ####[facility] [place] [address], [facility] [[email or web address]] Hemoglobin mass conc (Bld) 12.9 g/dL Low 13.9-16.3 [facility] Comment on above: Order Comment: Other , right weakness left gaze pref Performed By: #### 5 0103 ####[facility] [facility] [place] [address], [facility] [[email or web address]] Lymphocytes/100 leukocytes 10.9 % Low 20.0-40.0 [facility] Comment on above: Order Comment: Other , right weakness left gaze pref Performed By: #### 5 0103 ####[facility] [facility].[address] MCH 30.3 pg Normal 24.0-32.0 [facility] Comment on above: Order Comment: Other , right weakness left gaze pref Performed By: #### 5 3 ####[facility] [facility] MCHC mass conc (RBC) 33.7 g/dL Normal 32.0-36.0 [facility] Comment on above: Order Comment: Other , right weakness left gaze pref Performed By: #### 5 3 ####[facility] [facility] [place] [place] [address], [facility] [[email or web address]] MCV 89.9 fL Normal 80.0-100.0 [facility] Comment on above: Order Comment: Other , right weakness left gaze pref Performed By: #### 5 0103 ####[facility] [facility] [place] [address], [facility] [[email or web address]] METHOD Normal RBC Morphology Normal [facility] Comment on above: Order Comment: Other , right weakness left gaze pref Performed By: #### 5 3 ####[facility] [place] [address], [facility] [[email or web address]] MONOS 13.3 % High 2-8 [facility] Comment on above: Order Comment: Other , right weakness left gaze pref Performed By: #### 5 3 ####[facility] [place] [address], [facility] [[email or web address]] Neutrophils/100 leukocytes 75.1 % High 50-70 [facility] Comment on above: Order Comment: Other , right weakness left gaze pref Performed By: #### 5 0103 ####[facility] [place] [address], [facility] [[email or web address]] PLAT CNT 154 Thou/mm3 Normal 100-400 [facility] Comment on above: Order Comment: Other , right weakness left gaze pref Performed By: #### 5 0103 ####[facility] [place] [address], [facility] [[email or web address]] WBC (Leukocytes) 10.8 Thou/mm3 High 4.0-10.0 [facility] Comment on above: Order Comment: Other , right weakness left gaze pref Performed By: #### 5 0103 ####[facility] COMP METABOLIC PANELon 03-25 Alanine aminotransferase (ALT) 40 U/L Normal 7-52 [facility] Comment on above: Order Comment: Other , right weakness left gaze pref Performed By: #### 4 1000, 84555, 85624 ####[facility] [place] [address], [facility] [[email or web address]] Albumin 3.1 g/dL Low 3.5-5.7 [facility] Comment on above: Order Comment: Other , right weakness left gaze pref Performed By: #### 4 1000, 53096, 62088 ####[facility] [place] [address], [facility] [[email or web address]] ALKALINE PHOSPH 40 IU/L Normal 34-104 [facility] Comment on above: Order Comment: Other , right weakness left gaze pref Performed By: #### 4 1000, 64318, 30668 ####[facility] [place] [address], [place] Aspartate aminotransferase (AST) 38 U/L Normal 13-39 [facility] Comment on above: Order Comment: Other , right weakness left gaze pref Performed By: #### 4 1000, 17859, 93795 ####[facility] [place] [address], [facility] [[email or web address]] Bilirubin (total) 0.7 mg/dL Normal 0.3-1.0 [facility] Comment on above: Order Comment: Other , right weakness left gaze pref Performed By: #### 4 1000, 97560, 53227 ####[facility] [place] [address], [facility] [[email or web address]] Calcium 8.7 mg/dL Normal 8.6-10.3 [facility] Comment on above: Order Comment: Other , right weakness left gaze pref Performed By: #### 4 1000, , 88385 ####[facility] [place] [address], [facility] [[email or web address]] Chloride 102 mmol/L Normal 98-107 [facility] Comment on above: Order Comment: Other , right weakness left gaze pref Performed By: #### 4 1000, 43100, 64159 ####[facility] [place] [address], [facility] [[email or web address]] CO2 27 mmol/L Normal 21-31 [facility] Comment on above: Order Comment: Other , right weakness left gaze pref Performed By: #### 4 1000, 98550, 44994 ####[facility] [place] [address], [facility] [[email or web address]] Creatinine 0.85 mg/dL Normal 0.70-1.30 [facility] Comment on above: Order Comment: Other , right weakness left gaze pref Performed By: #### 4 1000, 66872, 41447 ####[facility] [place] [address], [facility] [[email or web address]] eGFR (black) mL/min/{1.73_m2} Normal >60 [facility] Comment on above: Order Comment: Other , right weakness left gaze pref Performed By: #### 4 1000, , 12392 ####[facility] eGFR (non-black) mL/min/{1.73_m2} Normal >60 [facility] Comment on above: Order Comment: Other , right weakness left gaze pref Performed By: #### 4 1000, , 41484 ####[facility] Glucose mass conc 134 mg/dL High 70-100 [facility] Comment on above: Order Comment: Other , right weakness left gaze pref Performed By: #### 4 1000, , 54432 ####[facility] Potassium molar conc 4.0 mmol/L Normal 3.5-5.1 [facility] Comment on above: Order Comment: Other , right weakness left gaze pref Performed By: #### 4 1000, , 20567 ####[facility] Protein 6.0 g/dL Normal 6.0-8.3 [facility] Comment on above: Order Comment: Other , right weakness left gaze pref Performed By: #### 4 1000, 24034, 41097 ####[facility] Sodium 138 mmol/L Normal 136-145 [facility] Comment on above: Order Comment: Other , right weakness left gaze pref Performed By: #### 4 1000, , 01571 ####[facility] Urea nitrogen 21 mg/dL Normal 7-25 [facility] Comment on above: Order Comment: Other , right weakness left gaze pref Performed By: #### 4 1000, , 51230 ####[facility] [place] [address], [facility] [[email or web address]] KEPPRA ILon 03-25-2017 IL Normal [facility] Comment on above: Order Comment: Other , right weakness left gaze pref KEPPRA 19 ug/mL Normal [facility] Comment on above: Order Comment: Other , right weakness left gaze pref Result Comment: A re ference range for Keppra has not been well established. The proposed therapeutic range for seizure control is 6-46 ug/mL. Pharmacokinetics of Keppra are affected by renal function. The relationship between serum concentrations and toxicity is not known. MAGNESIUM BLOODon 03-25-2017 Magnesium 2.0 mg/dL Normal 1.9-2.7 [facility] Comment on above: Order Comment: Other , right weakness left gaze pref Performed By: #### 4 1000, 60814, 15631 ####[facility] [facility] [place] [address], [facility] [[email or web address]] PHOSPHORUS BLOODon 7 Phosphate 2.7 mg/dL Normal 2.5-5.0 [facility] Comment on above: Order Comment: Other , right weakness left gaze pref Performed By: #### 4 1000, 61098, 26856 ####[facility] [facility] [place] [address], [facility] [[email or web address]] POC GLUCOSE LABon 03-25-2017 Glucose mass conc 147 mg/dL High 70-100 [facility] Comment on above: Performed By: #### 8 5499 ####[facility] [facility] [place] [address], [facility] [[email or web address]] Glucose mass conc 132 mg/dL High 70-100 [facility] Comment on above: Performed By: #### 8 5499 ####[facility] [facility] [place] [address], [facility] [[email or web address]] ARTERIAL BLOOD GAS WITH ICAo n 03-24-2017 BASE EXCESS 3 mmol/L High -2-2 [facility] Comment on above: Performed By: #### 8 4511 ####[facility] [place] [address], [facility] [[email or web address]] Bicarbonate (HCO3) 26 mmol/L Normal 23-27 [facility] Comment on above: Performed By: #### 8 4511 ####[facility] [place] [address], [facility] [[email or web address]] CO2 37 mmHg Normal 35-45 [facility] Comment on above: Performed By: #### 8 4511 ####[facility] [place] [address], [facility] [[email or web address]] DELIVERY SYSTEMS MV Normal [facility] Comment on above: Performed By: #### 8 4511 ####[facility] [place] [address], [facility] [[email or web address]] FIO2 40 % Normal 21-100 [facility] Comment on above: Performed By: #### 8 4511 ####[facility] [place] [address], [facility] [[email or web address]] IONIZED CALCIUM 1.16 mmol/L Normal 1.13-1.32 [facility] Comment on above: Performed By: #### 8 4511 ####[facility] [place] [address], [facility] [[email or web address]] MIN VOLUME 8.5 Normal [facility] Comment on above: Performed By: #### 8 4511 ####[facility] [place] [address], [place] MODALITY AC Normal [facility] Comment on above: Performed By: #### 8 4511 ####[facility] [place] [address], [facility] [[email or web address]] O2 saturation 94.6 % Normal 94.0-97.0 [facility] Comment on above: Performed By: #### 8 4511 ####[facility] [place] [address], [facility] [[email or web address]] Oxygen in arterial blood 96 mm[Hg] Normal 75-100 [facility] Comment on above: Performed By: #### 8 4511 ####[facility] PEEP 5.0 CMH20 Normal [facility] Comment on above: Performed By: #### 8 4511 ####[facility] PF RATIO 240 mmHg Normal 50-400 [facility] Comment on above: Performed By: #### 8 4511 ####[facility] pH of blood 7.46 [pH] High 7.35-7.45 [facility] Comment on above: Performed By: #### 8 4511 ####[facility] Respiratory rate 14 /min Normal [facility] Comment on above: Performed By: #### 8 4511 ####[facility] TIDAL VOLUME (VT) CC 500 Normal [facility] Comment on above: Performed By: #### 8 4511 ####[facility] [facility].[address] CBC W/DIFFon 03-24-2017 Basophils Auto #/vol (Bld) 0.1 % Normal 0.0-2.0 [facility] Comment on above: Order Comment: Other , right weakness left gaze pref Performed By: #### 5 0103 ####[facility] Eosinophils/100 leukocytes 1.0 % Normal 0.0-5.0 [facility] Comment on above: Order Comment: Other , right weakness left gaze pref Performed By: #### 5 0103 ####[facility] [facility].[address] Erythrocyte distribution width Auto Ratio (RBC) 13.5 % Normal 11.5-16.9 [facility] Comment on above: Order Comment: Other , right weakness left gaze pref Performed By: #### 5 0103 ####[facility] [facility].[address] Erythrocytes (RBC) 4.30 mill/mm3 Normal 4.30-5.90 [facility] Comment on above: Order Comment: Other , right weakness left gaze pref Performed By: #### 5 3 ####[facility] Hematocrit (HCT) 39.0 % Normal 39.0-55.0 [facility] Comment on above: Order Comment: Other , right weakness left gaze pref Performed By: #### 5 3 ####[facility] [facility].[address] Hemoglobin mass conc (Bld) 12.8 g/dL Low 13.9-16.3 [facility] Comment on above: Order Comment: Other , right weakness left gaze pref Performed By: #### 5 0103 ####[place] [id number] [facility] [place] [place] [address], [facility] [[email or web address]] Lymphocytes/100 leukocytes 11.1 % Low 20.0-40.0 [facility] Comment on above: Order Comment: Other , right weakness left gaze pref Performed By: #### 5 3 ####[facility] [place] [address], [facility] [[email or web address]] MCH 29.9 pg Normal 24.0-32.0 [facility] Comment on above: Order Comment: Other , right weakness left gaze pref Performed By: #### 5 3 ####[facility] [facility] [place] [address], [facility] [[email or web address]] MCHC mass conc (RBC) 32.9 g/dL Normal 32.0-36.0 [facility] Comment on above: Order Comment: Other , right weakness left gaze pref Performed By: #### 5 0103 ####[facility] [place] [address], [facility] [[email or web address]] MCV 90.7 fL Normal 80.0-100.0 [facility] Comment on above: Order Comment: Other , right weakness left gaze pref Performed By: #### 5 0103 ####[facility] [place] [address], [facility] [[email or web address]] METHOD Normal RBC Morphology Normal [facility] Comment on above: Order Comment: Other , right weakness left gaze pref Performed By: #### 5 0103 ####[facility] [place] [address], [facility] [[email or web address]] MONOS 11.7 % High 2-8 [facility] Comment on above: Order Comment: Other , right weakness left gaze pref Performed By: #### 5 0103 ####[facility] [place] [address], [facility] [[email or web address]] Neutrophils/100 leukocytes 76.1 % High 50-70 [facility] Comment on above: Order Comment: Other , right weakness left gaze pref Performed By: #### 5 0103 ####[facility] [place] [address], [facility] [[email or web address]] PLAT CNT 133 Thou/mm3 Normal 100-400 [facility] Comment on above: Order Comment: Other , right weakness left gaze pref Performed By: #### 5 3 ####[facility] [place] [address], [facility] [[email or web address]] WBC (Leukocytes) 9.2 Thou/mm3 Normal 4.0-10.0 [facility] Comment on above: Order Comment: Other , right weakness left gaze pref Performed By: #### 5 3 ####[facility] [place] [address], [facility] [[email or web address]] COMP METABOLIC PANELon 03-24 Alanine aminotransferase (ALT) 48 U/L Normal 7-52 [facility] Comment on above: Order Comment: Other , right weakness left gaze pref Performed By: #### 0 0121, 26610, 24563 ####[facility] [place] [address], [facility] [[email or web address]] Albumin 3.2 g/dL Low 3.5-5.7 [facility] Comment on above: Order Comment: Other , right weakness left gaze pref Performed By: #### 0 0121, 69431, 70236 ####[facility] [place] [address], [facility] [[email or web address]] ALKALINE PHOSPH 40 IU/L Normal 34-104 [facility] Comment on above: Order Comment: Other , right weakness left gaze pref Performed By: #### 0 0121, 17605, 59567 ####[facility] Aspartate aminotransferase (AST) 33 U/L Normal 13-39 [facility] Comment on above: Order Comment: Other , right weakness left gaze pref Performed By: #### 0 0121, 89755, 16287 ####[facility] [place] [address], [facility] [[email or web address]] Bilirubin (total) 0.6 mg/dL Normal 0.3-1.0 [facility] Comment on above: Order Comment: Other , right weakness left gaze pref Performed By: #### 0 0121, 64695, 63401 ####[facility] [place] [address], [facility] [[email or web address]] Calcium 8.7 mg/dL Normal 8.6-10.3 [facility] Comment on above: Order Comment: Other , right weakness left gaze pref Performed By: #### 0 0121, 48627, 81441 ####[facility] [place] [address], [facility] [[email or web address]] Chloride 104 mmol/L Normal 98-107 [facility] Comment on above: Order Comment: Other , right weakness left gaze pref Performed By: #### 0 0121, 61024, 13142 ####[facility] CO2 26 mmol/L Normal 21-31 [facility] Comment on above: Order Comment: Other , right weakness left gaze pref Performed By: #### 0 0121, 98556, 25418 ####[facility] Creatinine 0.80 mg/dL Normal 0.70-1.30 [facility] Comment on above: Order Comment: Other , right weakness left gaze pref Performed By: #### 0 0121, 20175, 71256 ####[facility] [facility].[address] eGFR (black) mL/min/{1.73_m2} Normal >60 [facility] Comment on above: Order Comment: Other , right weakness left gaze pref Performed By: #### 0 0121, 47445, 11383 ####[facility] [facility].[address] eGFR (non-black) mL/min/{1.73_m2} Normal >60 [facility] Comment on above: Order Comment: Other , right weakness left gaze pref Performed By: #### 0 0121, 72388, 91828 ####[facility] [facility].[address] Glucose mass conc 189 mg/dL High 70-100 [facility] Comment on above: Order Comment: Other , right weakness left gaze pref Performed By: #### 0 0121, 96456, 94461 ####[facility] Potassium molar conc 4.5 mmol/L Normal 3.5-5.1 [facility] Comment on above: Order Comment: Other , right weakness left gaze pref Performed By: #### 0 0121, 21977, 16971 ####[facility] Protein 6.1 g/dL Normal 6.0-8.3 [facility] Comment on above: Order Comment: Other , right weakness left gaze pref Performed By: #### 0 0121, 09311, 59201 ####[facility] Sodium 138 mmol/L Normal 136-145 [facility] Comment on above: Order Comment: Other , right weakness left gaze pref Performed By: #### 0 0121, 11897, 78788 ####[facility] Urea nitrogen 21 mg/dL Normal 7-25 [facility] Comment on above: Order Comment: Other , right weakness left gaze pref Performed By: #### 0 0121, 98878, 17004 ####[facility] MAGNESIUM BLOODon 03-24-2017 Magnesium 2.1 mg/dL Normal 1.9-2.7 [facility] Comment on above: Order Comment: Other , right weakness left gaze pref Performed By: #### 0 0121, 32982, 81577 ####[facility] [place] [address], [facility] [[email or web address]] PHOSPHORUS BLOODon 7 Phosphate 3.0 mg/dL Normal 2.5-5.0 [facility] Comment on above: Order Comment: Other , right weakness left gaze pref Performed By: #### 0 0121, 27333, 14413 ####[facility] [place] [address], [facility] [[email or web address]] POC GLUCOSE LABon 03-24-2017 Glucose mass conc 153 mg/dL High 70-100 [facility] Comment on above: Performed By: #### 8 5499 ####[facility] [place] [address], [facility] [[email or web address]] Glucose mass conc 191 mg/dL High 70-100 [facility] Comment on above: Performed By: #### 8 5499 ####[facility] [place] [address], [facility] [[email or web address]] ARTERIAL BLOOD GAS WITH ICAo n 03-23-2017 BASE EXCESS 1 mmol/L Normal -2-2 [facility] Comment on above: Performed By: #### 8 4511 ####[facility] [place] [address], [facility] [[email or web address]] Bicarbonate (HCO3) 26 mmol/L Normal 23-27 [facility] Comment on above: Performed By: #### 8 4511 ####[facility] [place] [address], [facility] [[email or web address]] CO2 40 mmHg Normal 35-45 [facility] Comment on above: Performed By: #### 8 4511 ####[facility] [place] [address], [facility] [[email or web address]] DELIVERY SYSTEMS MV Normal [facility] Comment on above: Performed By: #### 8 4511 ####[facility] [place] [address], [email or web address]] FIO2 40 % Normal 21-100 [facility] Comment on above: Performed By: #### 8 4511 ####[facility] [place] [address], [place] IONIZED CALCIUM 1.25 mmol/L Normal 1.13-1.32 [facility] Comment on above: Performed By: #### 8 4511 ####[facility] [place] [address], [place] MIN VOLUME 8.0 Normal [facility] Comment on above: Performed By: #### 8 4511 ####[facility] [place] [address], [facility] [[email or web address]] MODALITY AC Normal [facility] Comment on above: Performed By: #### 8 4511 ####[facility] O2 saturation 95.3 % Normal 94.0-97.0 [facility] Comment on above: Performed By: #### 8 4511 ####[facility] Oxygen in arterial blood 96 mm[Hg] Normal 75-100 [facility] Comment on above: Performed By: #### 8 4511 ####[facility] [facility].[address] PEEP 5.0 CMH20 Normal [facility] Comment on above: Performed By: #### 8 4511 ####[facility] [facility].[address] pH of blood 7.42 [pH] Normal 7.35-7.45 [facility] Comment on above: Performed By: #### 8 4511 ####[facility] [facility].[address] Respiratory rate 14 /min Normal [facility] Comment on above: Performed By: #### 8 4511 ####[facility] [facility].[address] TIDAL VOLUME (VT) CC 500 Normal [facility] Comment on above: Performed By: #### 8 4511 ####[facility] BASIC METABOLIC PANELon 10-0 Calcium 8.5 mg/dL Low 8.6-10.3 [facility] Comment on above: Order Comment: Other , right weakness left gaze pref Performed By: #### 0 0071, 30500, 17450 ####[facility] [place] [address], [facility] [[email or web address]] Chloride 107 mmol/L Normal 98-107 [facility] Comment on above: Order Comment: Other , right weakness left gaze pref Performed By: #### 0 0071, 34724, 14773 ####[facility] [place] [address], [facility] [[email or web address]] CO2 25 mmol/L Normal 21-31 [facility] Comment on above: Order Comment: Other , right weakness left gaze pref Performed By: #### 0 0071, 68717, 29191 ####[facility] [place] [address], [facility] [[email or web address]] Creatinine 0.79 mg/dL Normal 0.70-1.30 [facility] Comment on above: Order Comment: Other , right weakness left gaze pref Performed By: #### 0 0071, 97372, 25913 ####[facility] eGFR (black) mL/min/{1.73_m2} Normal >60 [facility] Comment on above: Order Comment: Other , right weakness left gaze pref Performed By: #### 0 0071, 38146, 29718 ####[facility] eGFR (non-black) mL/min/{1.73_m2} Normal >60 [facility] Comment on above: Order Comment: Other , right weakness left gaze pref Performed By: #### 0 0071, 94459, 49073 ####[facility] [place] [address], [facility] [[email or web address]] Glucose mass conc 201 mg/dL High 70-100 [facility] Comment on above: Order Comment: Other , right weakness left gaze pref Performed By: #### 0 0071, 00799, 39728 ####[facility] [place] [address], [facility] [[email or web address]] Potassium molar conc 4.1 mmol/L Normal 3.5-5.1 [facility] Comment on above: Order Comment: Other , right weakness left gaze pref Performed By: #### 0 0071, 74167, 05512 ####[facility] Sodium 140 mmol/L Normal 136-145 [facility] Comment on above: Order Comment: Other , right weakness left gaze pref Performed By: #### 0 0071, 83365, 83311 ####[facility] Urea nitrogen 23 mg/dL Normal 7-25 [facility] Comment on above: Order Comment: Other , right weakness left gaze pref Performed By: #### 0 0071, 98355, 97022 ####[facility].[address] CBC W/DIFFon 03-23-2017 Basophils Auto #/vol (Bld) 0.2 % Normal 0.0-2.0 [facility] Comment on above: Order Comment: Other , right weakness left gaze pref Performed By: #### 5 102 ####[facility] [facility].[address] Eosinophils/100 leukocytes 2.1 % Normal 0.0-5.0 [facility] Comment on above: Order Comment: Other , right weakness left gaze pref Performed By: #### 5 3 ####[facility] Erythrocyte distribution width Auto Ratio (RBC) 13.8 % Normal 11.5-16.9 [facility] Comment on above: Order Comment: Other , right weakness left gaze pref Performed By: #### 5 102 ####[facility] Erythrocytes (RBC) 4.08 mill/mm3 Low 4.30-5.90 [facility] Comment on above: Order Comment: Other , right weakness left gaze pref Performed By: #### 5 0103 ####[facility] Hematocrit (HCT) 37.1 % Low 39.0-55.0 [facility] Comment on above: Order Comment: Other , right weakness left gaze pref Performed By: #### 5 0103 ####[facility] Hemoglobin mass conc (Bld) 12.3 g/dL Low 13.9-16.3 [facility] Comment on above: Order Comment: Other , right weakness left gaze pref Performed By: #### 5 3 ####[place] [address] [address] Lymphocytes/100 leukocytes 16.1 % Low 20.0-40.0 [facility] Comment on above: Order Comment: Other , right weakness left gaze pref Performed By: #### 5 3 ####[facility] MCH 30.2 pg Normal 24.0-32.0 [facility] Comment on above: Order Comment: Other , right weakness left gaze pref Performed By: #### 5 3 ####[facility] [facility].[address] MCHC mass conc (RBC) 33.2 g/dL Normal 32.0-36.0 [facility] Comment on above: Order Comment: Other , right weakness left gaze pref Performed By: #### 5 3 ####[facility] MCV 90.8 fL Normal 80.0-100.0 [facility] Comment on above: Order Comment: Other , right weakness left gaze pref Performed By: #### 5 3 ####[facility] [place] [address], [facility] [[email or web address]] METHOD Normal RBC Morphology Normal [facility] Comment on above: Order Comment: Other , right weakness left gaze pref Performed By: #### 5 0103 ####[facility] [place] [address], [facility] [[email or web address]] MONOS 11.9 % High 2-8 [facility] Comment on above: Order Comment: Other , right weakness left gaze pref Performed By: #### 5 0103 ####[facility] [facility] [place] [place] [address], [facility] [[email or web address]] Neutrophils/100 leukocytes 69.7 % Normal 50-70 [facility] Comment on above: Order Comment: Other , right weakness left gaze pref Performed By: #### 5 0103 ####[facility] [facility] [place] [place] [address], [facility] [[email or web address]] PLAT CNT 124 Thou/mm3 Normal 100-400 [facility] Comment on above: Order Comment: Other , right weakness left gaze pref Performed By: #### 5 0103 ####[facility] [facility] [place] [place] [address], [facility] [[email or web address]] WBC (Leukocytes) 5.8 Thou/mm3 Normal 4.0-10.0 [facility] Comment on above: Order Comment: Other , right weakness left gaze pref Performed By: #### 5 0103 ####[place] [address] [facility].[address] EEG Reporton 03-23-2017 [facility] [id number] Age: 61 Physician: Date: 03/23/2017 Lab#: Date of : 1955 Patient Type: I [facility] [id number] [place], [place] [address] Board of the [place] [employer] Accredited LaboratoryDate of : [birth year]Medical record number: [id number] lab November: Day 7Date of study: 03/23/2017Referring physician: Dr. Hoa Alvares WilliamHistory:This is a 61-year-old male with new onset seizure and fever. The study isto assist clinical diagnosis due to a concern of possible epilepticetiology.MEDICATION: Versed, KeppraTechnical Description:This is a continuous monitoring utilizing digital EEG, audio, and video [facility] inpatient. EEG electrodes was placed [...] monitoring utilizing digital EEG, audio, and video [facility] inpatient. This record started at 06:30:27 hours [...] 03/23/2017/02:40 P/Damián Olvera M.D.Date Trans: 03/23/2017 02:40 P/EPHRAIM_JN:[id number]: Gasper Thurman D.O. [address] [place] [address] A [facility] [address] [place] [facility] EEG [facility] MR#: [id number] Age: 61 Physician: Date: 03/23/2017 Lab#: Date of : 1955 Patient Type: I [facility] [id number] [place], [place] [address] Board of the [place] [employer] Accredited LaboratoryDate of : 57Medical record number: [id number] lab November: M-207-17 Day 6Date of study: 03/22/2017 to 03/23/2017Referring physician: Dr. Hoa Alvares WilliamHistory:This is a 61-year-old male with new onset seizure and fever. The study isto assist clinical diagnosis due to a concern of possible epilepticetiology.MEDICATION: Versed, KeppraTechnical Description:This is a continuous monitoring utilizing digital EEG, audio, and video [facility] inpatient. EEG electrodes was placed [...] monitoring utilizing digital EEG, audio, and video [facility] inpatient. This record started at 06:30:22 hours on [...] 03/23/2017/02:39 P/Damián Olvera M.D.Date Trans: 03/23/2017 02:39 P/EPHRAIM_JN:[id number]: Gasper Thurman D.O. [address] [place] [id number] Normal [facility] MAGNESIUM BLOODon 03-23-2017 Magnesium 2.1 mg/dL Normal 1.9-2.7 [facility] Comment on above: Order Comment: Other , right weakness left gaze pref Performed By: #### 0 0071, 19231, 55855 ####[address] MRI BRAIN TEMPORAL LOBE W WO CONTRASTon 03-23-2017 MRI BRAIN TEMPORAL LOBE W WO CONTRAST [facility] Bujggeilw[address] [place] [address] Patient Name: REMINGTON BARKER : 1955Sex: MAge: Race: WhiteMRN: [id number]. Location: [id number] Status: IVisit #: [id number] Date: 03/22/2017 5:35:00 PMCompleted Date: 03/23/2017 03:58 PMRequesting Provider: MIKI SCOTT Attending Provider: ALEXI LOWERY Report Copy To: Signs & Symptoms: OtherHistory: Patient history not availableComments: Other, epilepsy with status epilepticus, MRI brain findings suggestive of MTLS.Exam: MRI BRAIN TEMPORAL LOBE W WO CONTRASTAccession #: [id number] MRI BRAIN TEMPORAL LOBE W WO CONTRAST [...] cells Electronically signed by:Giovanni Gabriel. Transcribed by: [email or web address], User Resident: Electronically Signed by: GIOVANNI GABRIEL @ 03/24/2017 09:41 AM Normal [facility] Comment on above: Order Comment: Other , right weakness left gaze pref MRI CERVICAL SPINE WO CONTRA STon 03-23-2017 MRI CERVICAL SPINE WO CONTRAST [facility] Pwvuueuyj[address] [place] [address] Patient Name: REMINGTON BARKER : 1955Sex: MAge: Race: WhiteMRN: [id number]. Location: [id number] Status: IVisit #: [id number] Date: 03/19/2017 2:45:00 PMCompleted Date: 03/23/2017 03:58 PMRequesting Provider: JAVI BRASWELL Attending Provider: ALEXI LOWERY Report Copy To: Signs & Symptoms: Paralysis (specify)History: Patient history not availableComments: R/O Spinal Stenosis, right sided hemiparesis r/o cervical spine pathologyExam: MRI CERVICAL SPINE WO CONTRASTAccession #: [id number] MRI CERVICAL SPINE WO CONTRAST 03/23/2017 3:58 [...] C6-C7 Electronically signed by:Giovanni Gabriel. Transcribed by: [email or web address], User Resident: Electronically Signed by: GIOVANNI GABRIEL @ 03/24/2017 11:00 AM Normal [facility] Comment on above: Order Comment: Other , right weakness left gaze pref PHOSPHORUS BLOODon 7 Phosphate 2.8 mg/dL Normal 2.5-5.0 [facility] Comment on above: Order Comment: Other , right weakness left gaze pref Performed By: #### 0 0071, 02944, 44142 ####[facility] POC GLUCOSE LABon 03-23-2017 Glucose mass conc 176 mg/dL High 70-100 [facility] Comment on above: Performed By: #### 8 5499 ####[place] [address] Glucose mass conc 194 mg/dL High 70-100 [facility] Comment on above: Performed By: #### 8 5499 ####[facility] Glucose mass conc 195 mg/dL High 70-100 [facility] Comment on above: Performed By: #### 8 5499 ####[facility] Glucose mass conc 190 mg/dL High 70-100 [facility] Comment on above: Performed By: #### 8 5499 ####[address] PORTABLE CHEST 1 VIEWon PORTABLE CHEST 1 VIEW [facility] Glbwsqnrp[address] [place] [address] Patient Name: REMINGTON BARKER DOB: 1955Sex: MAge: Race: WhiteMRN: [id number]. Location: [id number] Status: IVisit #: [id number] Date: 03/23/2017 5:00:00 AMCompleted Date: 03/23/2017 08:01 AMRequesting Provider: JEFF SANDOVAL Attending Provider: ALEXI LOWERY Report Copy To: Signs & Symptoms: Elevated WBCHistory: Patient history not availableComments: R/O PneumoniaExam: PORTABLE CHEST 1 VIEWAccession #: [id number] PORTAB LE CHEST 1 VIEW 03/23/2017 8:01 [...] findings. Electronically signed by:Giovanni Gabriel. Transcribed by: [email or web address], User Resident: TETE DEL VALLEElectronically Signed by: GIOVANNI GABRIEL @ 03/23/2017 01:07 PMI personally read this/these film(s) with this resident Normal [facility] Comment on above: Order Comment: Other , right weakness left gaze pref ARTERIAL BLOOD GAS WITH ICAo n 03-22-2017 BASE EXCESS 2 mmol/L Normal -2-2 [facility] Comment on above: Performed By: #### 8 4511 ####[facility] [place] [address], [facility] [[email or web address]] Bicarbonate (HCO3) 26 mmol/L Normal 23-27 [facility] Comment on above: Performed By: #### 8 4511 ####[facility] [place] [address], [facility] [[email or web address]] CO2 38 mmHg Normal 35-45 [facility] Comment on above: Performed By: #### 8 4511 ####[facility] [place] [address], [facility] [[email or web address]] DELIVERY SYSTEMS MV Normal [facility] Comment on above: Performed By: #### 8 4511 ####[facility] [place] [address], [facility] [[email or web address]] FIO2 40 % Normal 21-100 [facility] Comment on above: Performed By: #### 8 4511 ####[facility] [place] [address], [facility] [[email or web address]] IONIZED CALCIUM 1.18 mmol/L Normal 1.13-1.32 [facility] Comment on above: Performed By: #### 8 4511 ####[facility] [place] [address], [facility] [[email or web address]] MIN VOLUME 8.6 Normal [facility] Comment on above: Performed By: #### 8 4511 ####[facility] [place] [address], [facility] [[email or web address]] MODALITY AC Normal [facility] Comment on above: Performed By: #### 8 4511 ####[facility] [place] [address], [facility] [[email or web address]] O2 saturation 93.1 % Low 94.0-97.0 [facility] Comment on above: Performed By: #### 8 4511 ####[facility] [place] [address], [facility] [[email or web address]] Oxygen in arterial blood 70 mm[Hg] Low 75-100 [facility] Comment on above: Performed By: #### 8 4511 ####[facility] [place] [address], [place] PEEP 5.0 CMH20 Normal [facility] Comment on above: Performed By: #### 8 4511 ####[facility] [place] [address], [place] pH of blood 7.44 [pH] Normal 7.35-7.45 [facility] Comment on above: Performed By: #### 8 4511 ####[facility] [place] [address], [place] Respiratory rate 14 /min Normal [facility] Comment on above: Performed By: #### 8 4511 ####[facility] [place] [address], [place] TIDAL VOLUME (VT) CC 500 Normal [facility] Comment on above: Performed By: #### 8 4511 ####[facility] [place] [address], [place] BASIC METABOLIC PANELon 09-3 0-2016 Calcium 8.2 mg/dL Low 8.6-10.3 [facility] Comment on above: Order Comment: No: D o not add to previous draw Performed By: #### 1 0070, 99533, 17259 ####[facility] [place] [address], [place] Chloride 107 mmol/L Normal 98-107 [facility] Comment on above: Order Comment: No: D o not add to previous draw Performed By: #### 1 0070, 96093, 18168 ####[facility] [place] [address], [place] CO2 25 mmol/L Normal 21-31 [facility] Comment on above: Order Comment: No: D o not add to previous draw Performed By: #### 1 0, 49715, 10982 ####[facility] [place] [address], [facility] [[email or web address]] Creatinine 0.71 mg/dL Normal 0.70-1.30 [facility] Comment on above: Order Comment: No: D o not add to previous draw Performed By: #### 1 0, 52288, 61411 ####[facility] [place] [address], [facility] [[email or web address]] eGFR (black) mL/min/{1.73_m2} Normal >60 [facility] Comment on above: Order Comment: No: D o not add to previous draw Performed By: #### 1 0, 34581, 02496 ####[facility] [place] [address], [facility] [[email or web address]] eGFR (non-black) mL/min/{1.73_m2} Normal >60 Th e [facility] Comment on above: Order Comment: No: D o not add to previous draw Performed By: #### 1 0, 04867, 39033 ####[facility] [place] [address], [facility] [[email or web address]] Glucose mass conc 187 mg/dL High 70-100 [facility] Comment on above: Order Comment: No: D o not add to previous draw Performed By: #### 1 0, 14027, 68165 ####[facility] [place] [address], [facility] [[email or web address]] Potassium molar conc 4.0 mmol/L Normal 3.5-5.1 [facility] Comment on above: Order Comment: No: D o not add to previous draw Performed By: #### 1 0, 47230, 23656 ####[facility] [address], [place] Sodium 141 mmol/L Normal 136-145 [facility] Comment on above: Order Comment: No: D o not add to previous draw Performed By: #### 1 0070, 76251, 01359 ####[facility] Urea nitrogen 20 mg/dL Normal 7-25 [facility] Comment on above: Order Comment: No: D o not add to previous draw Performed By: #### 1 0070, 76854, 73861 ####[facility] [facility].[address] CBC W/DIFFon 03-22-2017 Basophils Auto #/vol (Bld) 0.0 % Normal 0.0-2.0 [facility] Comment on above: Order Comment: No: D o not add to previous draw Performed By: #### 5 0103 ####[facility] Eosinophils/100 leukocytes 1.1 % Normal 0.0-5.0 [facility] Comment on above: Order Comment: No: D o not add to previous draw Performed By: #### 5 0103 ####[facility] Erythrocyte distribution width Auto Ratio (RBC) 13.7 % Normal 11.5-16.9 [facility] Comment on above: Order Comment: No: D o not add to previous draw Performed By: #### 5 0103 ####[facility] [facility].[address] Erythrocytes (RBC) 4.12 mill/mm3 Low 4.30-5.90 [facility] Comment on above: Order Comment: No: D o not add to previous draw Performed By: #### 5 0103 ####[facility] [facility].[address] Hematocrit (HCT) 37.1 % Low 39.0-55.0 [facility] Comment on above: Order Comment: No: D o not add to previous draw Performed By: #### 5 0103 ####[facility] Hemoglobin mass conc (Bld) 12.4 g/dL Low 13.9-16.3 [facility] Comment on above: Order Comment: No: D o not add to previous draw Performed By: #### 5 0103 ####[facility] Lymphocytes/100 leukocytes 16.3 % Low 20.0-40.0 [facility] Comment on above: Order Comment: No: D o not add to previous draw Performed By: #### 5 0103 ####[facility] MCH 30.0 pg Normal 24.0-32.0 [facility] Comment on above: Order Comment: No: D o not add to previous draw Performed By: #### 5 0103 ####[facility] [facility].[address] MCHC mass conc (RBC) 33.4 g/dL Normal 32.0-36.0 [facility] Comment on above: Order Comment: No: D o not add to previous draw Performed By: #### 5 0103 ####[facility] [facility].[address] MCV 90.1 fL Normal 80.0-100.0 [facility] Comment on above: Order Comment: No: D o not add to previous draw Performed By: #### 5 0103 ####[facility] [facility].[address] METHOD Normal RBC Morphology Normal [facility] Comment on above: Order Comment: No: D o not add to previous draw Performed By: #### 5 0103 ####[facility] [place] [address], [email or web address]] MONOS 12.1 % High 2-8 [facility] Comment on above: Order Comment: No: D o not add to previous draw Performed By: #### 5 0103 ####[facility] [facility] [place] [address], [email or web address]] Neutrophils/100 leukocytes 70.5 % High 50-70 [facility] Comment on above: Order Comment: No: D o not add to previous draw Performed By: #### 5 0103 ####[facility] [place] [address], [facility] [[email or web address]] PLAT CNT 120 Thou/mm3 Normal 100-400 [facility] Comment on above: Order Comment: No: D o not add to previous draw Performed By: #### 5 0103 ####[facility] [facility] [place] [place] [address], [facility] [[email or web address]] WBC (Leukocytes) 4.7 Thou/mm3 Normal 4.0-10.0 [facility] Comment on above: Order Comment: No: D o not add to previous draw Performed By: #### 5 0103 ####[facility] [facility].[address] EEG Reporton 03-22-2017 [facility] [id number] Age: 61 Physician: Date: 03/22/2017 Lab#: Date of : 1955 Patient Type: I NEURODIAGNOSTIC SERVICES [id number] [place], [place] [address] Board of the [place] [employer] Accredited LaboratoryDate of : [birth year]Medical record number: [id number] lab November: M-207-17 Day 5Date of study: 03/21/2017 to 03/22/2017Referring physician: Dr. Hoa SilverHistory:This is a 61-year-old male with new onset seizure and fever. The study isto assist clinical diagnosis due to a concern of possible epilepticetiology.MEDICATION: Versed, KeppraTechnical Description:This is a continuous monitoring utilizing digital EEG, audio, and video [facility]. EEG electrodes was placed according to [...] monitoring utilizing digital EEG, audio, and video [facility]. This record started at 06:30:23 hours [...] frequency of the 12-14 Hz since amplitude [id number] V were frequently noticed as brief segments [...] 03/22/2017/03:50 P/Damián Olvera M.D.Date Trans: 03/22/2017 03:50 P/DN_JN:[id number]: Gasper Thurman D.O. [address] [place] [address], [facility] [address] Normal [facility] System EEG [facility] [id number] Age: 61 Physician: Date: 03/20/2017 To 03/21/2017 Lab#: [id number], day #4. Date of : 1955 Patient Type: I NEURODIAGNOSTIC SERVICES [id number] [place], [place] [address] Board of the [place] [employer] Accredited LaboratoryREFERRING PHYSICIAN: Hoa Chanel M.D. Ph.D.HISTORY: This video/EEG continuous monitoring is performed on g17-tgxh-ehs male with a history of seizures, who [...] Trans: 03/22/2017 02:11 A/mmoDate Revised: 03/24/2017 10:30 A/blrDN_JN:[id number]: Gasper Thurman D.O. [address] [place] [id number] Normal [facility] LACTATE BLOODon 03-22-2017 Lactate 0.7 mmol/L Normal .5-2.2 [facility] Comment on above: Order Comment: Other , right weakness left gaze pref Performed By: #### 1 0054 ####[facility] MAGNESIUM BLOODon 03-22-2017 Magnesium 2.2 mg/dL Normal 1.9-2.7 [facility] Comment on above: Order Comment: No: D o not add to previous draw Performed By: #### 1 0070, 42975, 39929 ####[facility] [facility].[address] OSMOLALITY BLOODon 7 Osmolality 308 mOsm/kg High 285-305 [facility] Comment on above: Order Comment: Other , right weakness left gaze pref Performed By: #### 1 0088, 86939 ####[facility] [place] [address], [email or web address]] PHOSPHORUS BLOODon 7 Phosphate 2.2 mg/dL Low 2.5-5.0 [facility] Comment on above: Order Comment: No: D o not add to previous draw Performed By: #### 1 0070, 38558, 99684 ####[facility] [facility] [place] [place] [address], [facility] [[email or web address]] POC GLUCOSE LABon 03-22-2017 Glucose mass conc 194 mg/dL High 70-100 [facility] Comment on above: Performed By: #### 8 5499 ####[facility] [facility] [place] [address], [facility] [[email or web address]] Glucose mass conc 194 mg/dL High 70-100 [facility] Comment on above: Performed By: #### 8 5499 ####[facility] [facility] [place] [place] [address], [facility] [[email or web address]] Glucose mass conc 195 mg/dL High 70-100 [facility] Comment on above: Performed By: #### 8 5499 ####[facility] [facility] [place] [place] [address], [facility] [[email or web address]] Glucose mass conc 195 mg/dL High 70-100 [facility] Comment on above: Performed By: #### 8 5499 ####[facility] [facility] [place] [place] [address], [facility] [[email or web address]] TRIGLYCERIDES BLOODon 2016 Triglyceride 152 mg/dL High 40-149 [facility] Comment on above: Order Comment: Other , right weakness left gaze pref Result Comment: TRIG LYCERIDE REFERENCE RANGE:20 YEARS AND OLDER CARDIOVASCULAR RISKLESS THAN 150 mg/dl LOW [id number] TO 199 mg/dl BORDERLINE [id number] mg/dl AND GREATER HIGH RISK Performed By: #### 1 0088, 60615 ####[facility] [facility] [place] [place] [address], [facility] [[email or web address]] AMMONIA BLOODon 03-21-2017 Ammonia 72 umol/L High 16-53 [facility] Comment on above: Order Comment: No: D o not add to previous drawNurse draw per TEJ Canales. Performed By: #### 0 0121, 56478, 36823, 13652 ####[facility] ARTERIAL BLOOD GAS WITH ICAo n 03-21-2017 BASE EXCESS -1 mmol/L Normal -2-2 [facility] Comment on above: Performed By: #### 0 0121, 11362, 11491, 94158 ####[facility] [place] [address], [facility] [[email or web address]] Bicarbonate (HCO3) 24 mmol/L Normal 23-27 [facility] Comment on above: Performed By: #### 0 0121, 41452, 60465, 34075 ####[facility] [place] [address], [facility] [[email or web address]] CO2 38 mmHg Normal 35-45 [facility] Comment on above: Performed By: #### 0 0121, 43145, 14867, 21007 ####[facility] DELIVERY SYSTEMS MV Normal [facility] Comment on above: Performed By: #### 0 0121, 11383, 70851, 84008 ####[place] [address] [place] [address], [facility] [[email or web address]] FIO2 40 % Normal 21-100 [facility] Comment on above: Performed By: #### 0 0121, 07583, 16973, 23850 ####[facility] [place] [address], [facility] [[email or web address]] IONIZED CALCIUM 1.22 mmol/L Normal 1.13-1.32 [facility] Comment on above: Performed By: #### 0 0121, 53907, 44228, 75866 ####[facility] [place] [address], [facility] [[email or web address]] MIN VOLUME 8.8 Normal [facility] Comment on above: Performed By: #### 0 0121, 80362, 49049, 81584 ####[facility] [address], [facility] [[email or web address]] MODALITY AC Normal [facility] Comment on above: Performed By: #### 0 0121, 56805, 84841, 04546 ####[facility] [place] [address], [facility] [[email or web address]] O2 saturation 94.6 % Normal 94.0-97.0 [facility] Comment on above: Performed By: #### 0 0121, 54967, 74287, 95677 ####[facility] [place] [address], [facility] [[email or web address]] Oxygen in arterial blood 90 mm[Hg] Normal 75-100 [facility] Comment on above: Performed By: #### 0 0121, 14615, 47257, 33357 ####[facility] [place] [address], [facility] [[email or web address]] PEEP 5.0 CMH20 Normal [facility] Comment on above: Performed By: #### 0 0121, 08251, 65200, 33187 ####[facility] [place] [address], [facility] [[email or web address]] PF RATIO 225 mmHg Normal 50-400 [facility] Comment on above: Performed By: #### 0 0121, 81981, 51700, 56228 ####[facility] [place] [address], [facility] [[email or web address]] pH of blood 7.40 [pH] Normal 7.35-7.45 [facility] Comment on above: Performed By: #### 0 0121, 10250, 88885, 09449 ####[facility] [place] [address], [place] Respiratory rate 14 /min Normal [facility] Comment on above: Performed By: #### 0 0121, 53828, 75489, 80591 ####[facility] [place] [address], [place] TIDAL VOLUME (VT) CC 500 Normal [facility] Comment on above: Performed By: #### 0 0121, 73422, 05645, 87083 ####[facility] [place] [address], [facility] [[email or web address]] BASIC METABOLIC PANELon 09-2 Calcium 8.2 mg/dL Low 8.6-10.3 [facility] Comment on above: Order Comment: No: D o not add to previous draw Performed By: #### 0 0121, 11495, 14731, 73572 ####[facility] [place] [address], [facility] [[email or web address]] Chloride 106 mmol/L Normal 98-107 [facility] Comment on above: Order Comment: No: D o not add to previous draw Performed By: #### 0 0121, 20965, 26719, 36831 ####[facility] [place] [address], [email or web address]] CO2 24 mmol/L Normal 21-31 [facility] Comment on above: Order Comment: No: D o not add to previous draw Performed By: #### 0 0121, 26318, 70105, 92644 ####[facility] Creatinine 0.80 mg/dL Normal 0.70-1.30 [facility] Comment on above: Order Comment: No: D o not add to previous draw Performed By: #### 0 0121, 24769, 58356, 93321 ####[facility] [place] [address], [facility] [[email or web address]] eGFR (black) mL/min/{1.73_m2} Normal >60 [facility] Comment on above: Order Comment: No: D o not add to previous draw Performed By: #### 0 0121, 99973, 74022, 81226 ####[facility] [place] [address], [facility] [[email or web address]] eGFR (non-black) mL/min/{1.73_m2} Normal >60 [facility] Comment on above: Order Comment: No: D o not add to previous draw Performed By: #### 0 0121, 40554, 38297, 11589 ####[facility] [place] [address], [facility] [[email or web address]] Glucose mass conc 153 mg/dL High 70-100 [facility] Comment on above: Order Comment: No: D o not add to previous draw Performed By: #### 0 0121, 69709, 61072, 22418 ####[facility] [place] [address], [facility] [[email or web address]] Potassium molar conc 3.9 mmol/L Normal 3.5-5.1 [facility] Comment on above: Order Comment: No: D o not add to previous draw Performed By: #### 0 0121, 74322, 24070, 84211 ####[facility] [place] [address], [facility] [[email or web address]] Sodium 142 mmol/L Normal 136-145 [facility] Comment on above: Order Comment: No: D o not add to previous draw Performed By: #### 0 0121, 11331, 67986, 50009 ####[facility] [place] [address], [facility] [[email or web address]] Urea nitrogen 19 mg/dL Normal 7-25 [facility] Comment on above: Order Comment: No: D o not add to previous draw Performed By: #### 0 0121, 75245, 57300, 78934 ####[facility] [place] [address], [facility] [[email or web address]] Calcium CANCELED Normal 8.6-10.3 [facility] Comment on above: Order Comment: No: D o not add to previous draw Result Comment: M-CR ITICAL RESULT(S) REVIEWED, CALLED TO AND READ BACK BY SEMAJ Mcgregor RN @0446The released value 5.9 was canceled by [email or web address] on 03/21/2017 05:01 Performed By: #### 0 0121, 37817, 99764, 28878 ####[facility] [place] [address], [facility] [[email or web address]] Chloride CANCELED Normal 98-107 [facility] Comment on above: Order Comment: No: D o not add to previous draw Result Comment: The released value 77 was canceled by [email or web address] on 03/21/2017 05:01 Performed By: #### 0 0121, 81175, 16066, 24217 ####[facility] [place] [address], [facility] [[email or web address]] CO2 CANCELED Normal 21-31 [facility] Comment on above: Order Comment: No: D o not add to previous draw Result Comment: The released value 19 was canceled by [email or web address] on 03/21/2017 05:01 Performed By: #### 0 0121, 35786, 19030, 63123 ####[facility] [place] [address], [facility] [[email or web address]] Creatinine CANCELED Normal 0.70-1.30 [facility] Comment on above: Order Comment: No: D o not add to previous draw Result Comment: The released value 0.51 was canceled by [email or web address] on 03/21/2017 05:01 Performed By: #### 0 0121, 00233, 61084, 27573 ####[facility] [place] [address], [facility] [[email or web address]] eGFR (black) CANCELED Normal >60 [facility] Comment on above: Order Comment: No: D o not add to previous draw Result Comment: The released value >60 was canceled by [email or web address] on 03/21/2017 05:01 Performed By: #### 0 0121, 23650, 16979, 26718 ####[facility] [place] [address], [facility] [[email or web address]] eGFR (non-black) CANCELED Normal >60 [facility] Comment on above: Order Comment: No: D o not add to previous draw Result Comment: The released value >60 was canceled by [email or web address] on 03/21/2017 05:01 Performed By: #### 0 0121, 21697, 17531, 73260 ####[facility] [facility] [place] [place] [address], [facility] [[email or web address]] Glucose mass conc CANCELED Normal 70-100 [facility] Comment on above: Order Comment: No: D o not add to previous draw Result Comment: The released value 145 was canceled by [email or web address] on 03/21/2017 05:01 Performed By: #### 0 0121, 34456, 22906, 11440 ####[facility] [facility] [place] [place] [address], [facility] [[email or web address]] Potassium molar conc CANCELED Normal 3.5-5.1 [facility] Comment on above: Order Comment: No: D o not add to previous draw Result Comment: The released value 2.7 was canceled by [email or web address] on 03/21/2017 05:01 Performed By: #### 0 0121, 45088, 69738, 68999 ####[facility] [facility] [place] [address], [facility] [[email or web address]] Sodium CANCELED Normal 136-145 [facility] Comment on above: Order Comment: No: D o not add to previous draw Result Comment: M-CR ITICAL RESULT(S) REVIEWED, CALLED TO AND READ BACK BY SEMAJ Mcgregor RN @0441The released value 90 was canceled by [email or web address] on 03/21/2017 05:01 Performed By: #### 0 0121, 86537, 84099, 01041 ####[facility] [facility] [place] [place] [address], [facility] [[email or web address]] Urea nitrogen CANCELED Normal 7-25 [facility] Comment on above: Order Comment: No: D o not add to previous draw Result Comment: The released value 18 was canceled by [email or web address] on 03/21/2017 05:01 Performed By: #### 0 0121, 80047, 74819, 68680 ####[facility] [facility].[address] CBC W/DIFFon 03-21-2017 Basophils Auto #/vol (Bld) 0.0 % Normal 0.0-2.0 [facility] Comment on above: Order Comment: No: D o not add to previous draw Performed By: #### 0 0121, 85659, 25682, 04876 ####[facility] Eosinophils/100 leukocytes 0.7 % Normal 0.0-5.0 [facility] Comment on above: Order Comment: No: D o not add to previous draw Performed By: #### 0 0121, 57732, 05325, 74634 ####[facility] [facility].[address] Erythrocyte distribution width Auto Ratio (RBC) 13.7 % Normal 11.5-16.9 [facility] Comment on above: Order Comment: No: D o not add to previous draw Performed By: #### 0 0121, 42397, 47871, 38644 ####[facility] [facility].[address] Erythrocytes (RBC) 4.23 mill/mm3 Low 4.30-5.90 [facility] Comment on above: Order Comment: No: D o not add to previous draw Performed By: #### 0 0121, 95140, 63244, 05957 ####[facility] [facility].[address] Hematocrit (HCT) 38.5 % Low 39.0-55.0 [facility] Comment on above: Order Comment: No: D o not add to previous draw Performed By: #### 0 0121, 09447, 60127, 61914 ####[facility] Hemoglobin mass conc (Bld) 12.8 g/dL Low 13.9-16.3 [facility] Comment on above: Order Comment: No: D o not add to previous draw Performed By: #### 0 0121, 71567, 53625, 26211 ####[facility] Lymphocytes/100 leukocytes 14.5 % Low 20.0-40.0 [facility] Comment on above: Order Comment: No: D o not add to previous draw Performed By: #### 0 0121, 99336, 75477, 65586 ####[facility] MCH 30.2 pg Normal 24.0-32.0 [facility] Comment on above: Order Comment: No: D o not add to previous draw Performed By: #### 0 0121, 83773, 13377, 22329 ####[facility] MCHC mass conc (RBC) 33.2 g/dL Normal 32.0-36.0 [facility] Comment on above: Order Comment: No: D o not add to previous draw Performed By: #### 0 0121, 12850, 56524, 82155 ####[facility] MCV 90.9 fL Normal 80.0-100.0 [facility] Comment on above: Order Comment: No: D o not add to previous draw Performed By: #### 0 0121, 86912, 48983, 31478 ####[facility] [place] [address], [facility] [[email or web address]] METHOD Normal RBC Morphology Normal [facility] Comment on above: Order Comment: No: D o not add to previous draw Performed By: #### 0 0121, 40305, 92276, 26390 ####[facility] MONOS 9.4 % High 2-8 [facility] Comment on above: Order Comment: No: D o not add to previous draw Performed By: #### 0 0121, 31313, 06566, 58881 ####[facility] [place] [address], [facility] [[email or web address]] Neutrophils/100 leukocytes 75.4 % High 50-70 [facility] Comment on above: Order Comment: No: D o not add to previous draw Performed By: #### 0 0121, 80097, 36259, 11329 ####[facility] [place] [address], [facility] [[email or web address]] PLAT CNT 126 Thou/mm3 Normal 100-400 [facility] Comment on above: Order Comment: No: D o not add to previous draw Performed By: #### 0 0121, 40057, 16114, 87579 ####[facility] [facility] [place] [address], [facility] [[email or web address]] WBC (Leukocytes) 5.8 Thou/mm3 Normal 4.0-10.0 [facility] Comment on above: Order Comment: No: D o not add to previous draw Performed By: #### 0 0121, 76155, 19343, 92556 ####[facility] [facility].[address] EEG Reporton 03-21-2017 EEG Report Name: [facility] MR#: [id number] Age: 61 Physician: Hoa hCanel M.D. Ph.D Date: 03/19/2017-03/20/2017 Lab#: [id number], day 3 Date of : 1955 Patient Type: I NEURODIAGNOSTIC SERVICES [id number] [place], [place] [address] Board of the [place] [employer] Accredited LaboratoryHISTORY: This video/EEG continuous monitoring is performed on g06-txse-pdb man with a history of epilepsy, admitted [...] Jeovanny/Hoa Chanel M.D. Ph.DDate Trans: 03/21/2017 05:37 A/mmoDN_JN:[id number]: Gasper Thurman D.O. [address] [place] [id number] Hoa Chanel M.D. Ph.D Department Of Neurology [address] [place] [address] Normal [facility] LACTATE BLOODon 03-21-2017 Lactate 0.7 mmol/L Normal .5-2.2 [facility] Comment on above: Order Comment: No: D o not add to previous draw Performed By: #### 0 0121, 01006, 39152, 62413 ####[facility] LIVER BATTERYon 03-21-2017 Alanine aminotransferase (ALT) 32 U/L Normal 7-52 [facility] Comment on above: Order Comment: No: D o not add to previous draw Performed By: #### 0 0121, 60203, 60454, 16663 ####[facility] Albumin 3.0 g/dL Low 3.5-5.7 [facility] Comment on above: Order Comment: No: D o not add to previous draw Performed By: #### 0 0121, 21368, 04067, 20692 ####[facility] [place] [address], [email or web address]] ALKALINE PHOSPH 34 IU/L Normal 34-104 [facility] Comment on above: Order Comment: No: D o not add to previous draw Performed By: #### 0 0121, 95917, 11590, 90382 ####[facility] [place] [address], [email or web address]] Aspartate aminotransferase (AST) 20 U/L Normal 13-39 [facility] Comment on above: Order Comment: No: D o not add to previous draw Performed By: #### 0 0121, 20512, 90644, 44725 ####[facility] [place] [address], [place] Bilirubin (direct) 0.1 mg/dL Normal 0.0-0.2 [facility] Comment on above: Order Comment: No: D o not add to previous draw Performed By: #### 0 0121, 85559, 72869, 05958 ####[facility] [place] [address], [facility] [[email or web address]] Bilirubin (total) 0.5 mg/dL Normal 0.3-1.0 [facility] Comment on above: Order Comment: No: D o not add to previous draw Performed By: #### 0 0121, 55920, 02063, 70084 ####[facility] [facility] [place] [address], [facility] [[email or web address]] Protein 5.5 g/dL Low 6.0-8.3 [facility] Comment on above: Order Comment: No: D o not add to previous draw Performed By: #### 0 0121, 87837, 22402, 85833 ####[facility] [place] [address], [email or web address]] MAGNESIUM BLOODon 03-21-2017 Magnesium 2.2 mg/dL Normal 1.9-2.7 [facility] Comment on above: Order Comment: This order is a replacement of the rejected order with accession [id number]. Performed By: #### 0 0121, 72175, 91732, 06776 ####[facility] [place] [address], [place] Magnesium CANCELED Normal 1.9-2.7 [facility] Comment on above: Order Comment: No: D o not add to previous draw Result Comment: The released value 2.4 was canceled by [email or web address] on 03/21/2017 05:02 Performed By: #### 0 0121, 17633, 73269, 81543 ####[facility] [place] [address], [facility] [[email or web address]] PHOSPHORUS BLOODon 7 Phosphate 2.5 mg/dL Normal 2.5-5.0 [facility] Comment on above: Order Comment: This order is a replacement of the rejected order with accession [id number]. Performed By: #### 0 0121, 35398, 28304, 19811 ####[facility] [facility] [place] [address], [email or web address]] Phosphate CANCELED Normal 2.5-5.0 [facility] Comment on above: Order Comment: No: D o not add to previous draw Result Comment: The released value <1.0 was canceled by [email or web address] on 03/21/2017 05:02 Performed By: #### 0 0121, 24749, 76732, 46889 ####[facility] [facility] [place] [address], [email or web address]] POC GLUCOSE LABon 03-21-2017 Glucose mass conc 122 mg/dL High 70-100 [facility] Comment on above: Performed By: #### 0 0121, 32569, 92170, 27896 ####[facility] [facility] [place] [address], [email or web address]] Glucose mass conc 148 mg/dL High 70-100 [facility] Comment on above: Performed By: #### 0 0121, 65022, 71830, 43101 ####[facility] [facility] [place] [address], [facility] [[email or web address]] Glucose mass conc 124 mg/dL High 70-100 [facility] Comment on above: Performed By: #### 0 0121, 03007, 65175, 37151 ####[facility] TSH WITH REFLEXon 03-21-2017 [place] CANCELED Normal [facility] Comment on above: Order Comment: No: D o not add to previous drawTSH with Reflex canceled. TSH ordered. Performed By: #### 0 0121, 81618, 48811, 84636 ####[facility] Thyroid stimulating hormone (TSH) CANCELED Normal 0.34-5.60 [facility] Comment on above: Order Comment: No: D o not add to previous drawTSH with Reflex canceled. TSH ordered. Result Comment: The released value 0.25 was canceled by NAYELY on 03/21/2017 20:25 Performed By: #### 0 0121, 55997, 13989, 18081 ####[facility] [facility].[address] Thyroxine (T4) free CANCELED Normal [facility] Comment on above: Order Comment: No: D o not add to previous drawTSH with Reflex canceled. TSH ordered. Performed By: #### 0 0121, 41012, 74905, 51044 ####[facility] [facility].[address] VITAMIN B12on 03-21-2017 Cobalamins (Vitamin B12) 388 pg/mL Normal 180-914 [facility] Comment on above: Order Comment: No: D o not add to previous draw Result Comment: REFE RENCE RANGES:180-914 pg/mL Nkkgoq010-777 pg/mL Indeterminate<145 pg/mL Deficient Performed By: #### 0 0121, 07605, 77588, 55548 ####[facility].[address] ARTERIAL BLOOD GAS WITH ICAo n 03-20-2017 BASE EXCESS -2 mmol/L Normal -2-2 [facility] Comment on above: Performed By: #### 0 0121, 09658, 06723, 44909 ####[facility] [place] [address], [facility] [[email or web address]] Bicarbonate (HCO3) 22 mmol/L Low 23-27 [facility] Comment on above: Performed By: #### 0 0121, 89792, 02710, 70073 ####[facility] [place] [address], [facility] [[email or web address]] CO2 35 mmHg Normal 35-45 [facility] Comment on above: Performed By: #### 0 0121, 63305, 30926, 18975 ####[facility] [place] [address], [facility] [[email or web address]] DELIVERY SYSTEMS MV Normal [facility] Comment on above: Performed By: #### 0 0121, 47813, 84081, 95634 ####[facility] [place] [address], [facility] [[email or web address]] FIO2 40 % Normal 21-100 [facility] Comment on above: Performed By: #### 0 0121, 93323, 13366, 01284 ####[facility] [place] [address], [facility] [[email or web address]] IONIZED CALCIUM 1.20 mmol/L Normal 1.13-1.32 [facility] Comment on above: Performed By: #### 0 0121, 64446, 61884, 94474 ####[facility] [place] [address], [facility] [[email or web address]] MIN VOLUME 7.8 Normal [facility] Comment on above: Performed By: #### 0 0121, 74522, 86346, 50794 ####[facility] [place] [address], [facility] [[email or web address]] MODALITY AC Normal [facility] Comment on above: Performed By: #### 0 0121, 72695, 96387, 18583 ####[facility] [place] [address], [place] O2 saturation 96.4 % Normal 94.0-97.0 [facility] Comment on above: Performed By: #### 0 0121, 39702, 57392, 58549 ####[facility] [place] [address], [facility] [[email or web address]] Oxygen in arterial blood 106 mm[Hg] Critically high 75-100 [facility] Comment on above: Performed By: #### 0 0121, 53303, 40853, 71540 ####[facility] [place] [address], [place] PEEP 5.0 CMH20 Normal [facility] Comment on above: Performed By: #### 0 0121, 17714, 34299, 92481 ####[facility] [place] [address], [place] PF RATIO 265 mmHg Normal 50-400 [facility] Comment on above: Performed By: #### 0 0121, 10156, 88870, 55437 ####[facility] [place] [address], [facility] [[email or web address]] pH of blood 7.41 [pH] Normal 7.35-7.45 [facility] Comment on above: Performed By: #### 0 0121, 85361, 33149, 89425 ####[facility] [place] [address], [place] Respiratory rate 14 /min Normal [facility] Comment on above: Performed By: #### 0 0121, 39535, 47081, 10739 ####[facility] [place] [address], [place] TIDAL VOLUME (VT) CC 500 Normal [facility] Comment on above: Performed By: #### 0 0121, 41596, 96450, 62268 ####[facility] [place] [address], [place] BASIC METABOLIC PANELon 2 Calcium 7.7 mg/dL Low 8.6-10.3 [facility] Comment on above: Order Comment: No: D o not add to previous draw Performed By: #### 0 0121, 22256, 21811, 02363 ####[facility] [place] [address], [facility] [[email or web address]] Chloride 113 mmol/L High 98-107 [facility] Comment on above: Order Comment: No: D o not add to previous draw Performed By: #### 0 0121, 93021, 19687, 86708 ####[facility] [place] [address], [facility] [[email or web address]] CO2 20 mmol/L Low 21-31 [facility] Comment on above: Order Comment: No: D o not add to previous draw Performed By: #### 0 0121, 76222, 46387, 06049 ####[facility] [place] [address], [facility] [[email or web address]] Creatinine 0.71 mg/dL Normal 0.70-1.30 [facility] Comment on above: Order Comment: No: D o not add to previous draw Performed By: #### 0 0121, 81101, 16975, 83365 ####[facility] [place] [address], [facility] [[email or web address]] eGFR (black) mL/min/{1.73_m2} Normal >60 [facility] Comment on above: Order Comment: No: D o not add to previous draw Performed By: #### 0 0121, 19408, 33762, 52987 ####[facility] [place] [address], [facility] [[email or web address]] eGFR (non-black) mL/min/{1.73_m2} Normal >60 [facility] Comment on above: Order Comment: No: D o not add to previous draw Performed By: #### 0 0121, 36342, 01974, 41320 ####[facility] Glucose mass conc 78 mg/dL Normal 70-100 [facility] Comment on above: Order Comment: No: D o not add to previous draw Performed By: #### 0 0121, 12925, 36804, 86514 ####[facility] [place] [address], [facility] [[email or web address]] Potassium molar conc 3.8 mmol/L Normal 3.5-5.1 [facility] Comment on above: Order Comment: No: D o not add to previous draw Performed By: #### 0 0121, 71358, 56719, 98928 ####[facility].[address] Sodium 141 mmol/L Normal 136-145 [facility] Comment on above: Order Comment: No: D o not add to previous draw Performed By: #### 0 0121, 56495, 20716, 21170 ####[facility].[address] Urea nitrogen 16 mg/dL Normal 7-25 [facility] Comment on above: Order Comment: No: D o not add to previous draw Performed By: #### 0 0121, 45527, 37454, 96816 ####[facility].[address] CBC COMPLETE BLOOD COUNTon 0 03-20-2017 Erythrocyte distribution width Auto Ratio (RBC) 13.4 % Normal 11.5-16.9 [facility] Comment on above: Order Comment: This order is a replacement of the rejected order with accession [id number]. Performed By: #### 0 0121, 00169, 16913, 19059 ####[facility] Erythrocytes (RBC) 4.14 mill/mm3 Low 4.30-5.90 [facility] Comment on above: Order Comment: This order is a replacement of the rejected order with accession [id number]. Performed By: #### 0 0121, 66791, 77295, 71450 ####[facility] [facility].[address] Hematocrit (HCT) 37.2 % Low 39.0-55.0 [facility] Comment on above: Order Comment: This order is a replacement of the rejected order with accession [id number]. Performed By: #### 0 0121, 06575, 88724, 56297 ####[facility].[address] Hemoglobin mass conc (Bld) 12.5 g/dL Low 13.9-16.3 [facility] Comment on above: Order Comment: This order is a replacement of the rejected order with accession [id number]. Performed By: #### 0 0121, 35210, 55951, 74080 ####[facility] [facility].[address] MCH 30.1 pg Normal 24.0-32.0 [facility] Comment on above: Order Comment: This order is a replacement of the rejected order with accession [id number]. Performed By: #### 0 0121, 94683, 29562, 83405 ####[facility] MCHC mass conc (RBC) 33.5 g/dL Normal 32.0-36.0 [facility] Comment on above: Order Comment: This order is a replacement of the rejected order with accession [id number]. Performed By: #### 0 0121, 08942, 56765, 24108 ####[facility] MCV 89.8 fL Normal 80.0-100.0 [facility] Comment on above: Order Comment: This order is a replacement of the rejected order with accession [id number]. Performed By: #### 0 0121, 49673, 40152, 28347 ####[facility] [facility] [place] [place] [address], [facility] [[email or web address]] PLAT CNT 142 Thou/mm3 Normal 100-400 [facility] Comment on above: Order Comment: This order is a replacement of the rejected order with accession [id number]. Performed By: #### 0 0121, 13558, 77683, 95868 ####[facility] [facility].[place], [place] [address] [place] [address] WBC (Leukocytes) 6.3 Thou/mm3 Normal 4.0-10.0 [facility] Comment on above: Order Comment: This order is a replacement of the rejected order with accession [id number]. Performed By: #### 0 0121, 56015, 19751, 08263 ####[facility] [facility].[address] EEG Reporton 03-20-2017 [facility] MR[facility] [id number] Age: 61 Physician: Hoa Chanel M.D. 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 Continuous video/EEG monitoring is recommended to continue forassistance with clinical management, as events are largely subclinical.Aggressive treatment for seizures is advised.Electronically Signed by:Hoa Chanel M.D. Ph.D 03/21/2017 08:50 A ___Hoa Chanel M.D. Ph.DDate Dict: 03/19/2017/09:39 A/Hoa Chanel M.D. Ph.DDate Trans: 03/20/2017 05:53 A/Dennis_JN:[id number]: Gasper Thurman D.O. [address] [facility] [address] Hoa Chanel M.D. Ph.D Department Of Neurology [address] [place] [address] Normal [facility] KEPPRA ILon 03-20-2017 IL Normal [facility] Comment on above: Order Comment: No: D o not add to previous draw KEPPRA 19 ug/mL Normal [facility] Comment on above: Order Comment: No: D o not add to previous draw Result Comment: A re ference range for Keppra has not been well established. The proposed therapeutic range for seizure control is 6-46 ug/mL. Pharmacokinetics of Keppra are affected by renal function. The relationship between serum concentrations and toxicity is not known. MAGNESIUM BLOODon 03-20-2017 Magnesium 1.8 mg/dL Low 1.9-2.7 [facility] Comment on above: Order Comment: No: D o not add to previous draw Performed By: #### 0 0121, 82598, 83960, 44893 ####[facility] PHOSPHORUS BLOODon 7 Phosphate 2.6 mg/dL Normal 2.5-5.0 [facility] Comment on above: Order Comment: No: D o not add to previous draw Performed By: #### 0 0121, 97344, 92100, 35424 ####[facility] [facility] [place] [place] [address], [facility] [[email or web address]] POC GLUCOSE LABon 03-20-2017 Glucose mass conc 101 mg/dL High 70-100 [facility] Comment on above: Performed By: #### 0 0121, 63909, 45267, 96605 ####[facility] [facility] [place] [place] [address], [facility] [[email or web address]] Glucose mass conc 115 mg/dL High 70-100 [facility] Comment on above: Performed By: #### 0 0121, 38765, 60502, 01523 ####[facility] [facility] [place] [address], [facility] [[email or web address]] Glucose mass conc 78 mg/dL Normal 70-100 [facility] Comment on above: Performed By: #### 0 0121, 02674, 28393, 78400 ####[facility] [place] [address], [facility] [[email or web address]] Glucose mass conc 78 mg/dL Normal 70-100 [facility] Comment on above: Performed By: #### 0 0121, 03880, 98306, 74970 ####[facility] [facility] [place] [address], [facility] [[email or web address]] PORTABLE CHEST 1 VIEWon 02-22 PORTABLE CHEST 1 VIEW [facility] System[facility] Etw[address] [place] [address] [id number] Patient Name: REMINGTON BARKER : 1955Sex: MAge: Race: WhiteMRN: [id number]. Location: [id number] Status: IVisit #: [id number] Date: 03/20/2017 5:10:00 PMCompleted Date: 03/20/2017 05:35 PMRequesting Provider: JEFF SANDOVAL Attending Provider: ALEXI LOWERY Report Copy To: Signs & Symptoms: OtherHistory: Patient history not availableComments: Check E.T. Position, check ET tube positionExam: PORTABLE CHEST 1 VIEWAccession #: [id number] PORTAB LE CHEST 1 VIEW 03/20/2017 5:35 [...] findings. Electronically signed by:Brent Wilkinson. Transcribed by: [email or web address], User Resident: REBEKAH ALLENANElectronically Signed by: BRENT WILKINSON @ 03/24/2017 06:41 PMI personally read this/these film(s) with this resident Normal [facility] Comment on above: Order Comment: Other , right weakness left gaze pref VALPROIC ACIDon 03-20-2017 VALPROIC ACID (DEPAKOTE) 72 mcg/mL Normal 60-100 [facility] Comment on above: Performed By: #### 0 0121, 17097, 67338, 90773 ####[facility] *AFB CULTUREon 03-19-2017 *AFB CULTURE Clinical Report: (D) Specimen: CSF Collected: 03/19/2017 12:14 Status: Final Last Updated: 05/01/2017 11:16 (1) Tube 3 Lumbar AFB (Final) No Acid Fast Bacilli Seen CULT RES (Final) No growth after 42 days of incubation Normal [facility] Comment on above: Order Comment: Tube 3 Lumbar Performed By: #### 2 1408 ####[facility] *CRYPTOCOCCAL AGon 7 *CRYPTOCOCCAL AG Clinical Report: (D) Specimen: CSF Collected: 03/19/2017 12:14 Status: Final Last Updated: 03/19/2017 18:37 (1) Tube 2 Lumbar CRYPT A (Final) Negative Normal [facility] Comment on above: Order Comment: Tube 2 Lumbar Performed By: #### 1 0054 ####[facility] *CSF CULTUREon 03-19-2017 *CSF CULTURE Clinical Report: (D) Specimen/Source: CSF/CEREBRAL SPINAL FLUID Collected: 03/19/2017 12:14 Status: Final Last Updated: 03/24/2017 11:16 (1) Tube 2 Lumbar Lumbar Puncture GRAM (Final) No Polys Seen No Bacteria Seen CYTOSPUN (Final) This Gram Stain was done on a cytocentrifuged specimen CULT RES (Final) No Growth Day 5 Normal [facility] Comment on above: Order Comment: Tube 2 LumbarLumbar Puncture Performed By: #### 0 0121, 93091, 05364, 70813 ####[facility] *FUNGAL CULTUREon 03-19-2017 *FUNGAL CULTURE Clinical Report: (D) Specimen: MISC Collected: 03/19/2017 12:14 Status: Final Last Updated: 04/21/2017 08:05 (1) Tube 2 Lumbar No: Do not add to previous draw CULT RES (Final) Culture negative for fungus Normal [facility] Comment on above: Order Comment: Tube 2 LumbarNo: Do not add to previous draw Performed By: #### 0 0121, 18790, 00845, 38536 ####[facility] APTTon 03-19-2017 aPTT 28.2 s Normal 25.0-35.0 [facility] Comment on above: Order Comment: No: D [...] THIS PURPOSE. Performed By: #### 2 1408 ####[facility] [place] [address], [facility] [[email or web address]] ARTERIAL BLOOD GAS WITH ICAo n 03-19-2017 BASE EXCESS -3 mmol/L Low -2-2 [facility] Comment on above: Performed By: #### 2 1408 ####[facility] [place] [address], [facility] [[email or web address]] Bicarbonate (HCO3) 22 mmol/L Low 23-27 [facility] Comment on above: Performed By: #### 2 1408 ####[facility] [place] [address], [facility] [[email or web address]] CO2 37 mmHg Normal 35-45 [facility] Comment on above: Performed By: #### 2 1408 ####[facility] [place] [address], [facility] [[email or web address]] DELIVERY SYSTEMS MV Normal [facility] Comment on above: Performed By: #### 2 1408 ####[facility] [place] [address], [facility] [[email or web address]] FIO2 40 % Normal 21-100 [facility] Comment on above: Performed By: #### 2 1408 ####[facility] [place] [address], [facility] [[email or web address]] IONIZED CALCIUM 1.14 mmol/L Normal 1.13-1.32 [facility] Comment on above: Performed By: #### 2 1408 ####[facility] [place] [address], [facility] [[email or web address]] MIN VOLUME 7.3 Normal [facility] Comment on above: Performed By: #### 2 1408 ####[facility] [place] [address], [facility] [[email or web address]] MODALITY AC Normal [facility] Comment on above: Performed By: #### 2 1408 ####[facility] O2 saturation 95.1 % Normal 94.0-97.0 [facility] Comment on above: Performed By: #### 2 1408 ####[facility] Oxygen in arterial blood 103 mm[Hg] Critically high 75-100 [facility] Comment on above: Performed By: #### 2 1408 ####[facility] PEEP 5.0 CMH20 Normal [facility] Comment on above: Performed By: #### 2 1408 ####[facility] pH of blood 7.38 [pH] Normal 7.35-7.45 [facility] Comment on above: Performed By: #### 2 1408 ####[facility] Respiratory rate 14 /min Normal [facility] Comment on above: Performed By: #### 2 1408 ####[facility] TIDAL VOLUME (VT) CC 500 Normal [facility] Comment on above: Performed By: #### 2 1408 ####[facility] BASIC METABOLIC PANELon 09-2 Calcium 7.5 mg/dL Low 8.6-10.3 [facility] Comment on above: Order Comment: No: D o not add to previous draw Performed By: #### 2 1408 ####[facility] [facility] [place] [place] [address], [facility] [[email or web address]] Chloride 114 mmol/L High 98-107 [facility] Comment on above: Order Comment: No: D o not add to previous draw Performed By: #### 2 1408 ####[facility] [facility] [place] [place] [address], [facility] [[email or web address]] CO2 21 mmol/L Normal 21-31 [facility] Comment on above: Order Comment: No: D o not add to previous draw Performed By: #### 2 1408 ####[facility] [facility] [place] [place] [address], [facility] [[email or web address]] Creatinine 0.83 mg/dL Normal 0.70-1.30 [facility] Comment on above: Order Comment: No: D o not add to previous draw Performed By: #### 2 1408 ####[address] eGFR (black) mL/min/{1.73_m2} Normal >60 [facility] Comment on above: Order Comment: No: D o not add to previous draw Performed By: #### 2 1408 ####[address] eGFR (non-black) mL/min/{1.73_m2} Normal >60 [facility] Comment on above: Order Comment: No: D o not add to previous draw Performed By: #### 2 1408 ####[facility] [facility] [place] [place] [address], [facility] [[email or web address]] Glucose mass conc 105 mg/dL High 70-100 [facility] Comment on above: Order Comment: No: D o not add to previous draw Performed By: #### 2 1408 ####[address] [place] [address], [facility] [[email or web address]] Potassium molar conc 3.9 mmol/L Normal 3.5-5.1 [facility] Comment on above: Order Comment: No: D o not add to previous draw Performed By: #### 2 1408 ####[facility] [facility].[address] Sodium 144 mmol/L Normal 136-145 [facility] Comment on above: Order Comment: No: D o not add to previous draw Performed By: #### 2 1408 ####[facility] [facility].[address] Urea nitrogen 19 mg/dL Normal 7-25 [facility] Comment on above: Order Comment: No: D o not add to previous draw Performed By: #### 2 1408 ####[address] CBC W/DIFFon 03-19-2017 Basophils Auto #/vol (Bld) 0.2 % Normal 0.0-2.0 [facility] Comment on above: Order Comment: No: D o not add to previous draw Performed By: #### 2 1408 ####[facility] [facility].[address] Eosinophils/100 leukocytes 0.7 % Normal 0.0-5.0 [facility] Comment on above: Order Comment: No: D o not add to previous draw Performed By: #### 2 1408 ####[facility] [facility].[address] Erythrocyte distribution width Auto Ratio (RBC) 13.7 % Normal 11.5-16.9 [facility] Comment on above: Order Comment: No: D o not add to previous draw Performed By: #### 2 1408 ####[facility] [place] [address] Erythrocytes (RBC) 4.16 mill/mm3 Low 4.30-5.90 [facility] Comment on above: Order Comment: No: D o not add to previous draw Performed By: #### 2 1408 ####[facility] [place] [address], [facility] [[email or web address]] Hematocrit (HCT) 37.6 % Low 39.0-55.0 [facility] Comment on above: Order Comment: No: D o not add to previous draw Performed By: #### 2 1408 ####[facility] [place] [address], [facility] [[email or web address]] Hemoglobin mass conc (Bld) 12.6 g/dL Low 13.9-16.3 [facility] Comment on above: Order Comment: No: D o not add to previous draw Performed By: #### 2 1408 ####[facility] [facility] [place] [address], [facility] [[email or web address]] Lymphocytes/100 leukocytes 12.0 % Low 20.0-40.0 [facility] Comment on above: Order Comment: No: D o not add to previous draw Performed By: #### 2 1408 ####[facility] MCH 30.2 pg Normal 24.0-32.0 [facility] Comment on above: Order Comment: No: D o not add to previous draw Performed By: #### 2 1408 ####[facility] MCHC mass conc (RBC) 33.5 g/dL Normal 32.0-36.0 [facility] Comment on above: Order Comment: No: D o not add to previous draw Performed By: #### 2 1408 ####[facility] [place] [address], [facility] [[email or web address]] MCV 90.3 fL Normal 80.0-100.0 [facility] Comment on above: Order Comment: No: D o not add to previous draw Performed By: #### 2 1408 ####[facility], [place] [address] METHOD Normal RBC Morphology Normal [facility] Comment on above: Order Comment: No: D o not add to previous draw Performed By: #### 2 1408 ####[facility] [place] [address], [facility] [[email or web address]] MONOS 6.5 % Normal 2-8 [facility] Comment on above: Order Comment: No: D o not add to previous draw Performed By: #### 2 1408 ####[facility] Neutrophils/100 leukocytes 80.6 % High 50-70 [facility] Comment on above: Order Comment: No: D o not add to previous draw Performed By: #### 2 1408 ####[facility] PLAT CNT 148 Thou/mm3 Normal 100-400 [facility] Comment on above: Order Comment: No: D o not add to previous draw Performed By: #### 2 1408 ####[facility] WBC (Leukocytes) 9.0 Thou/mm3 Normal 4.0-10.0 [facility] Comment on above: Order Comment: No: D o not add to previous draw Performed By: #### 2 1408 ####[facility] [facility] CSF CELL COUNTon 03-19-2017 Erythrocytes (RBC) 0 mm3 Normal 0-0 [facility] Comment on above: Order Comment: Lumba r Tube 1 Tube 4 Performed By: #### 1 0054 ####[facility] [facility].[address] Erythrocytes (RBC) 22 mm3 High 0-0 [facility] Comment on above: Performed By: #### 1 0054 ####[facility] FLUID APPEAR CLEAR AND COLORLESS Normal [facility] Comment on above: Order Comment: Lumba r Tube 1 Tube 4 Performed By: #### 1 0054 ####[facility] FLUID VOLUME 23.5 mL Normal [facility] Comment on above: Order Comment: Lumba r Tube 1 Tube 4 Performed By: #### 1 0054 ####[facility] [place] [address], [facility] [[email or web address]] Lymphocytes/100 leukocytes 56 % High 0-0 [facility] Comment on above: Order Comment: Lumba r Tube 1 Tube 4 Performed By: #### 1 0054 ####[facility] [place] [address], [facility] [[email or web address]] Lymphocytes/100 leukocytes 55 % High 0-0 [facility] Comment on above: Performed By: #### 1 0054 ####[facility] MACROPHAGE 8 % Normal [facility] Comment on above: Order Comment: Lumba r Tube 1 Tube 4 Performed By: #### 1 0054 ####[facility] [place] [address], [facility] [[email or web address]] MACROPHAGE 13 % Normal [facility] Comment on above: Performed By: #### 1 0054 ####[facility] [place] [address], [facility] [[email or web address]] OTHER F2 70 CELL DIFF DONE BY CYTOSPIN Normal [facility] Comment on above: Order Comment: Lumba r Tube 1 Tube 4 Performed By: #### 1 0054 ####[facility] [place] [address], [facility] [[email or web address]] OTHER F2 80 CELL DIFF DONE BY CYTOSPIN Normal [facility] Comment on above: Performed By: #### 1 0054 ####[facility] OTHER F3 CHECKED BY ROBLES GARZA M.D. Normal [facility] Comment on above: Order Comment: Lumba r Tube 1 Tube 4 Result Comment: Resu lt changed by CHACHO on 03/21/2017 10:11. The previous value wasPRELIMINARY REPORT; VERIFIED REPORT TO FOLLOW. Performed By: #### 1 0054 ####[facility] SEGS 6 % High 0-0 [facility] Comment on above: Order Comment: Lumba r Tube 1 Tube 4 Performed By: #### 1 0054 ####[facility] SEGS 12 % High 0-0 [facility] Comment on above: Performed By: #### 1 0054 ####[facility] SITE LUMBAR Normal [facility] Comment on above: Order Comment: Lumba r Tube 1 Tube 4 Performed By: #### 1 0054 ####[facility] WBC (Leukocytes) 5 mm3 High 0-0 [facility] Comment on above: Performed By: #### 1 0054 ####[facility] [facility].[address] WBC (Leukocytes) 7 mm3 High 0-0 [facility] Comment on above: Order Comment: Lumba r Tube 1 Tube 4 Performed By: #### 1 0054 ####[facility] XANTHOCHROMIA NONE SEEN Normal [facility] Comment on above: Order Comment: Lumba r Tube 1 Tube 4 Performed By: #### 1 0054 ####[facility] [place] [address], [place] CT CHEST WO CONTRASTon 03-19 CT CHEST WO CONTRAST [facility] [address]val[address] [place] [address] Patient Name: REMINGTON BARKER : 1955Sex: MAge: Race: WhiteMRN: [id number]. Location: [id number] Status: IVisit #: [id number] Date: 03/19/2017 2:30:00 PMCompleted Date: 03/19/2017 05:31 PMRequesting Provider: JERICHO WANG Attending Provider: ALEXI LOWERY Report Copy To: Signs & Symptoms: Shortness of BreathHistory: Patient history not availableComments: R/O InfiltratesExam: CT CHEST WO CONTRASTAccession #: [id number] CT CHEST WO CONTRAST 03/19/2017 5:31 PM [...] findings. Electronically signed by:Brent Wilkinson. Transcribed by: [email or web address], User Resident: LORENZO GALLEGOSElectronically Signed by: BRENT WILKINSON @ 03/19/2017 08:27 PMI personally read this/these film(s) with this resident Normal [facility] Comment on above: Order Comment: R/O I nfiltrates EEG Reporton 03-19-2017 [facility] [id number] Age: 61 Physician: Date: 03/17/2017 Lab#: [id number] Date of : 1955 Patient Type: I NEURODIAGNOSTIC SERVICES [id number] [place], [place] [address] Board of the [place] [employer] Accredited LaboratoryHISTORY: This is a 61-year-old man with a history of possible seizure, [facility]opresents [facility], with complaints of inability to move [...] Signed by:Enrique Osorio MD 03/21/2017 01:26 P ___Enrique Osorio MDDate Dict: 03/18/2017/06:45 P/Enrique Osorio MDDate Trans: 03/19/2017 08:31 A/mmoDN_JN:[id number]: Gasper Thurman D.O. [address] [place] [id number] [place] [facility] [id number] Age: 61 Physician: Hoa Chanel M.D. Ph.D Date: 03/17/2017-03/18/2017 Lab#: [id number], day 1 Date of : 1955 Patient Type: I NEURODIAGNOSTIC SERVICES [id number] [place], [place] [address] Board of the [place] [employer] Accredited LaboratoryHISTORY: This video/EEG continuous monitoring is performed on i45-ltdf-lji man with a history of epilepsy, found [...] p.m. on March 17 until 6:30 a.m. onS, there are frequent seizures occurring every 5-10 [...] P ___Hoa Chanel M.D. Ph.DDate Dict: 03/18/2017/10:42 Jeovanny/Hoa Chanel M.D. Ph.DDate Trans: 03/18/2017 10:28 P/mmJaydenN_JN:[id number]: Gasper Thurman D.O. [address] [place] [phone] Hoa Chanel M.D. Ph.D Department Of Neurology [address] [facility] [address] Normal [facility] ENTEROVIRUS, PCR [id number] ENTEROVIRUS , PCR Not Detected Normal [facility] Comment on above: Order Comment: Tube 3 Lumbar Result Comment: NOT DETECTED - A negative result does not rule out thepresence of PCR inhibitors in the patient specimen or assayspecific nucleic acid in concentrations below the level ofdetection by the assay.INTERPRETIVE INFORMATION: Enterovirus by PCRTest developed and characteristics determined by [employer]. See Compliance Statement A: [employer]/CSThis test is performed pursuant to an agreement with [employer]Performed by [employer],[address] [facility] [place] [address] lvp.[employer], Zach Blanchard MD - Lab. Director EV SOURCE Lumbar Normal [facility] Comment on above: Order Comment: Tube 3 Lumbar GLUCOSE CSFon 03-19-2017 GLUCOSE CSF 61 mg/dL Normal 40-70 [facility] Comment on above: Order Comment: Tube 2 Lumbar Performed By: #### 1 0054 ####[facility] [place], [place] [address] [place] [address] NEGRO VIRUS PCR [id number] NEGRO VIRUS PCR Not Detected Normal [facility] Comment on above: Order Comment: Tube 2 LumbarNo: Do not add to previous draw Result Comment: NOT DETECTED - A negative result does not rule out thepresence of PCR inhibitors in the patient specimen or assayspecific nucleic acid in concentrations below the level ofdetection by the assay.INTERPRETIVE INFORMATION: NEGRO Virus by PCRTest developed and characteristics determined by [employer]. See Compliance Statement B: [employer]/CSPerformed by [employer],[address] [facility] [place] [address] pcp.[employer], Zach Blanchard MD - Lab. Director NEGRO VIRUS SOURCE Lumbar Normal [facility] Comment on above: Order Comment: Tube 2 LumbarNo: Do not add to previous draw LUMBAR PUNCTURE DIAGNOSTICon 03-19-2017 LUMBAR PUNCTURE DIAGNOSTIC [facility]Department [facility] [address] [place] [address] Patient Name: REMINGTON BARKER : 1955Sex: MAge: Race: WhiteMRN: [id number]. Location: [id number] Status: IVisit #: [id number] Date: 03/19/2017 8:00:00 AMCompleted Date: 03/19/2017 12:01 PMRequesting Provider: MIKI SCOTT Attending Provider: ALEXI LOWERY Report Copy To: Signs & Symptoms: Altered Mental StatusHistory: Patient history not availableComments: R/O MenningitisExam: LUMBAR PUNCTURE DIAGNOSTICAccession #: [id number] LUMBAR PUNCTURE DIAGNOSTIC 03/19/2017 12:01 PM EDT [...] and risks are acceptable. Consent was obtained. Timeout:[place] protocol timeout verification performed. PROCEDURE: Lumbar puncture [...] findings. Electronically signed by:Yuko Thorne. Transcribed by: [email or web address], User Resident: ISIS De Santiagoectronically Signed by: YUKO THORNE @ 03/19/2017 03:26 PMI personally read this/these film(s) with this resident Normal [facility] Comment on above: Order Comment: R/O M enningitis LYME ABS DET CSF [id number] LYME ABS DET 0.04 BENITO Normal <=0.99 [facility] Comment on above: Order Comment: Tube 2 [...] 10 days.Test developed and characteristics determined by [employer]. See Compliance Statement B: [email or web address] by [employer],[address] [place] [place] [address] xno.[employer], Zach Blanchard MD - Lab. Director MAGNESIUM BLOODon 03-19-2017 Magnesium 1.9 mg/dL Normal 1.9-2.7 [facility] Comment on above: Order Comment: No: D o not add to previous draw Performed By: #### 2 1408 ####[facility] [facility] [place] [address], [facility] [[email or web address]] PHOSPHORUS BLOODon 7 Phosphate 2.6 mg/dL Normal 2.5-5.0 [facility] Comment on above: Order Comment: No: D o not add to previous draw Performed By: #### 2 1408 ####[facility] [facility] [place] [place] [address], [facility] [[email or web address]] POC GLUCOSE LABon 03-19-2017 Glucose mass conc 78 mg/dL Normal 70-100 [facility] Comment on above: Performed By: #### 1 0054 ####[facility] [facility] [place] [address], [facility] [[email or web address]] Glucose mass conc 71 mg/dL Normal 70-100 [facility] Comment on above: Performed By: #### 2 1408 ####[facility] [facility] [place] [address], [facility] [[email or web address]] Glucose mass conc 100 mg/dL Normal 70-100 [facility] Comment on above: Performed By: #### 5 0103 ####[facility] [facility] [place] [address], [facility] [[email or web address]] PORTABLE CHEST 1 VIEWon 02-22 PORTABLE CHEST 1 VIEW [facility]Department [facility] Vw[address]vgrswn[address] [place] [address] Patient Name: REMINGTON BARKER : 1955Sex: MAge: Race: WhiteMRN: [id number]. Location: [id number] Status: IVisit #: [id number] Date: 03/19/2017 5:00:00 AMCompleted Date: 03/19/2017 09:08 AMRequesting Provider: JEFF SANDOVAL Attending Provider: ALEXI LOWERY Report Copy To: Signs & Symptoms: Elevated WBCHistory: Patient history not availableComments: R/O AspirationExam: PORTABLE CHEST 1 VIEWAccession #: [id number] PORTAB LE CHEST 1 VIEW 03/19/2017 9:08 [...] atelectasis. Electronically signed by:Ibrahima Garcia. Transcribed by: [email or web address], User Resident: Electronically Signed by: IBRAHIMA GARCIA @ 03/19/2017 01:50 PM Normal [facility] Comment on above: Order Comment: R/O A spiration PROTHROMBIN TIMEon 7 INR Coag RelTime (PPP) 1.11 {INR} Normal 0.91-1.16 [facility] Comment on above: Order Comment: No: D [...] OF ACTION, CLINICALEFFECTIVENESS, AND OPTIMAL THERAPEUTIC RANGE. [id number];108:231S-246S. Performed By: #### 2 1408 ####[facility] [facility].[address] Prothrombin time (PT) Coag time (PPP) 14.4 s Normal 12.3-14.8 [facility] Comment on above: Order Comment: No: D o not add to previous draw Result Comment: ALL RESULTS MUST BE INTERPRETED WITH RESPECT TO BLOOD DRAWING ARTIFACTOR DILUTION ERROR OF ANTICOAGULANT AT THE TIME OF SAMPLING. Performed By: #### 2 1408 ####[facility] [facility] [place] [address], [facility] [[email or web address]] TOTAL PROTEIN CSFon 03-19-20 17 TOTAL PROTEIN CSF 68.0 mg/dL High 20.0-45.0 [facility] Comment on above: Order Comment: Tube 2 LumbarNo: Do not add to previous draw Performed By: #### 1 0054 ####[facility] [facility] [place] [address], [facility] [[email or web address]] VARICELLA ZOSTER PCR [id number] 03-19-2017 VZV BY PCR Not Detected Normal [facility] Comment on above: Order Comment: Tube 3 LumbarNo: Do not add to previous draw Result Comment: NOT DETECTED - A negative result does not rule out thepresence of PCR inhibitors in the patient specimen or assayspecific nucleic acid in concentrations below the level ofdetection by the assay.INTERPRETIVE INFORMATION: Varicella-Zoster Virus by PCRTest developed and characteristics determined by [employer]. See Compliance Statement B: [employer]/CSPerformed by [employer],[address] [place] [place] [address] niv.[employer], Zach Blanchard MD - Lab. Director VDRL CSFon 03-19-2017 [place] Normal [facility] Comment on above: Order Comment: Tube 3 Lumbar VDRL NONREACTIVE Normal NR [facility] Comment on above: Order Comment: Tube 3 [place] [id number] on 03-19-2017 [place] IGG CSF 0.10 IV Normal <=1.29 [facility] Comment on above: Order Comment: Tube 3 [...] blood-brain barrier.Test developed and characteristics determined by [employer]. See Compliance Statement B: [employer]/CS [place] IGM CSF 0.02 IV Normal <=0.89 [facility] Comment on above: Order Comment: Tube [...] blood-brain barrier.Test developed and characteristics determined by [employer]. See Compliance Statement B: [employer]/CSPerformed by [employer],[address] [place] [address] ihe.[employer], Zach Blanchard MD - Lab. Director *BLOOD CULTUREon 03-18-2017 *BLOOD CULTURE Clinical Report: (D) Specimen: BLOOD CULTURE Collected: 03/18/2017 10:24 Status: Final Last Updated: 03/24/2017 09:35 CULT RES (Final) No Growth Day 5 Normal [facility] Comment on above: Performed By: #### 1 0054 ####[facility] [facility].[address] *SPUTUM CULTUREon 03-18-2017 *SPUTUM CULTURE Clinical Report: (D) Specimen/Source: SPUTUM/SPUTUM, INDUCED Collected: 03/18/2017 16:30 Status: Final Last Updated: 03/21/2017 08:05 (1) Yes: Add to Previous draw if able GRAM (Final) Zero Squamous Epithelial Cells, >25 Polys Per Low Power Field No Bacteria Seen ISO (Final) Rare Growth Colonies Consistent with Upper Respiratory Kaylen Normal [facility] Comment on above: Order Comment: Yes: Add to Previous draw if able Performed By: #### 5 0103 ####[facility] [facility].[address] ARTERIAL BLOOD GAS WITH ICAo n 03-18-2017 BASE EXCESS -5 mmol/L Low -2-2 [facility] Comment on above: Performed By: #### 8 4511 ####[facility] [facility].[address] Bicarbonate (HCO3) 21 mmol/L Low 23-27 [facility] Comment on above: Performed By: #### 8 4511 ####[facility] [facility].[address] CO2 39 mmHg Normal 35-45 [facility] Comment on above: Performed By: #### 8 4511 ####[facility] [facility].[address] DELIVERY SYSTEMS VENTILATOR Normal [facility] Comment on above: Performed By: #### 8 4511 ####[facility] [facility].[address] FIO2 40 % Normal 21-100 [facility] Comment on above: Performed By: #### 8 4511 ####[facility] [facility].[address] IONIZED CALCIUM 1.14 mmol/L Normal 1.13-1.32 [facility] Comment on above: Performed By: #### 8 4511 ####[facility] [place] [address], [facility] [[email or web address]] MIN VOLUME 7.0 Normal [facility] Comment on above: Performed By: #### 8 4511 ####[facility] [place] [address], [place] MODALITY AC Normal [facility] Comment on above: Performed By: #### 8 4511 ####[facility] [place] [address], [place] O2 saturation 91.2 % Low 94.0-97.0 [facility] Comment on above: Performed By: #### 8 4511 ####[facility] [place] [address], [place] Oxygen in arterial blood 71 mm[Hg] Low 75-100 [facility] Comment on above: Performed By: #### 8 4511 ####[facility] [place] [address], [place] PEEP 5.0 CMH20 Normal [facility] Comment on above: Performed By: #### 8 4511 ####[facility] [place] [address], [place] PF RATIO 178 mmHg Normal 50-400 [facility] Comment on above: Performed By: #### 8 4511 ####[facility] [place] [address], [place] pH of blood 7.33 [pH] Low 7.35-7.45 [facility] Comment on above: Performed By: #### 8 4511 ####[facility] [place] [address], [place] Respiratory rate 14 /min Normal [facility] Comment on above: Performed By: #### 8 4511 ####[facility] [place] [address], [facility] [[email or web address]] TIDAL VOLUME (VT) CC 500 Normal [facility] Comment on above: Performed By: #### 8 4511 ####[facility] [place] [address], [facility] [[email or web address]] CPKon 03-18-2017 Creatine kinase (CK) 1402 U/L High 30-223 [facility] Comment on above: Order Comment: No: D o not add to previous draw Performed By: #### 5 0103 ####[facility] [place] [address], [facility] [[email or web address]] Creatine kinase (CK) 2807 U/L Critically high 30-223 [facility] Comment on above: Performed By: #### 3 9301, [address], [address] ####[facility] [place] [address], [facility] [[email or web address]] KEPPRA ILon 03-18-2017 [place] Normal [facility] Comment on above: Order Comment: Yes: Add to Previous draw if able KEPPRA <2 Normal [facility] Comment on above: Order Comment: Yes: Add to Previous draw if able Result Comment: A re ference range for Keppra has not been well established. The proposed therapeutic range for seizure control is 6-46 ug/mL. Pharmacokinetics of Keppra are affected by renal function. The relationship between serum concentrations and toxicity is not known. LACTATE BLOODon 03-18-2017 Lactate 0.7 mmol/L Normal .5-2.2 [facility] Comment on above: Order Comment: No: D o not add to previous drawNurse draw per TEJ Vela. Performed By: #### 5 0103 ####[facility] [place] [address], [facility] [[email or web address]] Lactate 2.4 mmol/L High .5-2.2 [facility] Comment on above: Order Comment: Other , right weakness left gaze pref Performed By: #### 1 0054 ####[facility] [facility].[address] MYOGLOBINon 03-18-2017 Myoglobin 127 ng/mL High 0-90 [facility] Comment on above: Order Comment: No: D o not add to previous draw Result Comment: A DO UBLING OF VALUES FROM SERIAL BLOOD COLLECTIONS(1 - 2 HOURS APART) IS MORE INDICATIVE OF A M.I.THAN THE ABSOLUTE VALUE. Performed By: #### 5 0103 ####[facility] [facility].[address] Myoglobin 395 ng/mL Critically high 0-90 [facility] Comment on above: Result Comment: A DO UBLING OF VALUES FROM SERIAL BLOOD COLLECTIONS(1 - 2 HOURS APART) IS MORE INDICATIVE OF A M.I.THAN THE ABSOLUTE VALUE. Performed By: #### 3 9301, [address], [address] ####[facility] [facility].[address] OSMOLALITY BLOODon 7 Osmolality 313 mOsm/kg High 285-305 [facility] Comment on above: Order Comment: Other , right weakness left gaze pref Performed By: #### 3 9301, 72521, [address]22[address] ####[facility] [facility].[address] Operative Reporton 7 Operative Report MR#: [id number] [facility] Pt. Name: Remington Barker Room #: CELINE [id number] Discharge Date: Birthdate: 1955 OPERATIVE REPORTDATE OF SURGERY: 03/18/2017SURGEON: Ale Zavala M.D.PROCEDURE: Right internal jugular triple lumen central venous catheterplacement.INDICATION: IV access.CONTRAINDICATIONS: No contraindications in this particular patient.Procedure is operated by Dr. Covarrubias with attending Dr. Zavala.CONSENT: Written consent was obtained before the procedure explainingrisks, benefits, and purpose. Brother was [id number] in this caseand signing .A time-out was [...] Dict: 03/18/2017/03:38 P/Symone Gaona Trans: 03/18/2017 06:37 P/danishaoDN_JN:[id number]: Gasper Thurman D.O. [address] [place] [address] A [facility] [address] [place] [facility] Operative Report MR#: [id number] [facility] Pt. Name: Remington Barker Room #: CELINE [id number] Discharge Date: Birthdate: 1955 OPERATIVE REPORTDATE OF SURGERY: 03/18/2017SURGEON: Ale Zavala M.D.PROCEDURE WASTEWATER SUPERVISOR: Dr. Jericho Wang.ATTENDING PHYSICIAN: Dr. Ale Zavala.PROCEDURE: [...] for the entire procedure. Date Dict: 03/18/2017/03:14 P/JENNI Paytonate Trans: 03/18/2017 04:29 P/[id number]: Gasper Thurman D.O. [address] [place] [id number] Normal [facility] POC GLUCOSE LABon 03-18-2017 Glucose mass conc 99 mg/dL Normal 70-100 [facility] Comment on above: Performed By: #### 5 0103 ####[facility] Glucose mass conc 121 mg/dL High 70-100 [facility] Comment on above: Performed By: #### 8 5499 ####[facility] [place] [address], [facility] [[email or web address]] Glucose mass conc 152 mg/dL High 70-100 [facility] Comment on above: Performed By: #### 8 5499 ####[facility] [place] [address], [facility] [[email or web address]] Glucose mass conc 215 mg/dL High 70-100 [facility] Comment on above: Performed By: #### 8 5499 ####[facility] [place] [address], [facility] [[email or web address]] PORTABLE CHEST 1 VIEWon 02-22 PORTABLE CHEST 1 VIEW [facility] Hxlmy[address] [place] [id number] Patient Name: REMINGTON BARKER : 1955Sex: MAge: Race: WhiteMRN: [id number]. Location: [id number] Status: IVisit #: [id number] Date: 03/18/2017 3:30:00 PMCompleted Date: 03/18/2017 03:51 PMRequesting Provider: NANCY COVARRUBIAS Attending Provider: ALEXI LOWERY Report Copy To: Signs & Symptoms: Post Line PlacementHistory: Patient history not availableComments: Check Line Position, Uncomplicated procedure check placement. ; Call/page results to 1488Exam: PORTABLE CHEST 1 VIEWAccession #: [id number] PORTAB LE CHEST 1 VIEW 03/18/2017 3:51 [...] improving. Electronically signed by:Sunil Campbell. Transcribed by: [email or web address], User Resident: Electronically Signed by: SUNIL CAMPBELL @ 03/18/2017 03:55 PM Normal [facility] Comment on above: Order Comment: Check Line Position, Uncomplicated procedure check placement. ; Call/page results to 1488 PORTABLE CHEST 1 VIEW [facility] System[facility] Llstekakx0804 [place] [address] Patient Name: REMINGTON BARKER : 1955Sex: MAge: Race: WhiteMRN: [id number]. Location: [id number] Status: IVisit #: [id number] Date: 03/18/2017 4:05:00 AMCompleted Date: 03/18/2017 04:57 AMRequesting Provider: DORENE PLATA Attending Provider: ALEXI LOWERY Report Copy To: Signs & Symptoms: Post IntubationHistory: Patient history not availableComments: Check E.T. PositionExam: PORTABLE CHEST 1 VIEWAccession #: [id number] PORTAB LE CHEST 1 VIEW 03/18/2017 4:57 [...] cm. Electronically signed by:Giovanni Gabriel. Transcribed by: [email or web address], User Resident: Electronically Signed by: GIOVANNI GABRIEL @ 03/18/2017 09:41 AM Normal [facility] Comment on above: Order Comment: Other , right weakness left gaze pref VALPROIC ACIDon 03-18-2017 VALPROIC ACID (DEPAKOTE) 60 mcg/mL Normal 60-100 [facility] Comment on above: Performed By: #### 5 0103 ####[facility] [facility] [place] [address], [facility] [[email or web address]] AMMONIA BLOODon 03-17-2017 Ammonia 43 umol/L Normal 16-53 [facility] Comment on above: Performed By: #### 2 1408 ####[facility] [facility] [place] [address], [facility] [[email or web address]] CBC W/DIFFon 03-17-2017 Basophils Auto #/vol (Bld) 0.0 % Normal 0.0-2.0 [facility] Comment on above: Performed By: #### 5 0103 ####[facility] [place] [address], [facility] [[email or web address]] Eosinophils/100 leukocytes 0.0 % Normal 0.0-5.0 [facility] Comment on above: Performed By: #### 5 0103 ####[facility] Erythrocyte distribution width Auto Ratio (RBC) 13.5 % Normal 11.5-16.9 [facility] Comment on above: Performed By: #### 3 ####[facility] [facility].[address] Erythrocytes (RBC) 5.48 mill/mm3 Normal 4.30-5.90 [facility] Comment on above: Performed By: #### 3 ####[facility].[address] Hematocrit (HCT) 48.8 % Normal 39.0-55.0 [facility] Comment on above: Performed By: #### 5 3 ####[facility] [facility].[address] Hemoglobin mass conc (Bld) 16.5 g/dL High 13.9-16.3 [facility] Comment on above: Performed By: #### 5 3 ####[facility] Lymphocytes/100 leukocytes 7.0 % Low 20.0-40.0 [facility] Comment on above: Performed By: #### 5 3 ####[facility] MCH 30.2 pg Normal 24.0-32.0 [facility] Comment on above: Performed By: #### 5 3 ####[facility] MCHC mass conc (RBC) 33.9 g/dL Normal 32.0-36.0 [facility] Comment on above: Performed By: #### 5 0103 ####[facility] MCV 89.2 fL Normal 80.0-100.0 [facility] Comment on above: Performed By: #### 5 0103 ####[facility] [facility].[address] METHOD Manual blood smear examination performed Normal [facility] Comment on above: Performed By: #### 5 3 ####[facility] MONOS 6.0 % Normal 2-8 [facility] Comment on above: Performed By: #### 5 3 ####[facility] [facility].[address] OTHER 1 NORMAL RED CELL MORP HOLOGY SEEN Normal [facility] Comment on above: Performed By: #### 5 3 ####[facility] [facility].[address] PLAT CNT 212 Thou/mm3 Normal 100-400 [facility] Comment on above: Performed By: #### 5 3 ####[facility] [facility].[address] SEGS 87.0 % High 50-70 [facility] Comment on above: Performed By: #### 5 3 ####[facility] [facility].[address] WBC (Leukocytes) 16.9 Thou/mm3 High 4.0-10.0 [facility] Comment on above: Performed By: #### 5 3 ####[facility] COMP METABOLIC PANELon 03-17 Alanine aminotransferase (ALT) 31 U/L Normal 7-52 [facility] Comment on above: Performed By: #### 0 0121, 13607, 63828, 14519 ####[facility].[address] Albumin 3.9 g/dL Normal 3.5-5.7 [facility] Comment on above: Performed By: #### 0 0121, 99356, 58560, 07584 ####[facility].[address] ALKALINE PHOSPH 59 IU/L Normal 34-104 [facility] Comment on above: Performed By: #### 0 0121, 31151, 19142, 50790 ####[facility].[address] Aspartate aminotransferase (AST) 58 U/L High 13-39 [facility] Comment on above: Performed By: #### 0 0121, 13369, 92465, 26562 ####[facility].[address] Bilirubin (total) 0.7 mg/dL Normal 0.3-1.0 [facility] Comment on above: Performed By: #### 0 0121, 58797, 39365, 43853 ####[facility] [facility].[address] Calcium 8.4 mg/dL Low 8.6-10.3 [facility] Comment on above: Performed By: #### 0 0121, 47923, 71826, 11287 ####[facility].[address] Chloride 109 mmol/L High 98-107 [facility] Comment on above: Performed By: #### 0 0121, 35223, 35170, 64070 ####[facility] [place] [address], [facility] [[email or web address]] CO2 20 mmol/L Low 21-31 [facility] Comment on above: Performed By: #### 0 0121, 37073, 83748, 95256 ####[facility] [place] [address], [facility] [[email or web address]] Creatinine 1.32 mg/dL High 0.70-1.30 [facility] Comment on above: Performed By: #### 0 0121, 64279, 08728, 40611 ####[facility] [place] [address], [facility] [[email or web address]] eGFR (black) mL/min/{1.73_m2} Normal >60 [facility] Comment on above: Performed By: #### 0 0121, 41407, 28349, 77691 ####[facility] eGFR (non-black) 55 ml/min/1.73sq m Abnormal >60 [facility] Comment on above: Performed By: #### 0 0121, 64847, 59969, 47513 ####[facility] [place] [address], [facility] [[email or web address]] Glucose mass conc 210 mg/dL High 70-100 [facility] Comment on above: Performed By: #### 0 0121, 96651, 76584, 02876 ####[facility] [place] [address], [facility] [[email or web address]] Potassium molar conc 3.7 mmol/L Normal 3.5-5.1 [facility] Comment on above: Performed By: #### 0 0121, 50286, 51404, 23464 ####[facility] [place] [address], [facility] [[email or web address]] Protein 6.2 g/dL Normal 6.0-8.3 [facility] Comment on above: Performed By: #### 0 0121, 73442, 14841, 80924 ####[facility] [facility], [place] [address] [place] [address] Sodium 139 mmol/L Normal 136-145 [facility] Comment on above: Performed By: #### 0 0121, 92889, 11297, 48130 ####[facility] [facility].[place], [place] [address] Urea nitrogen 30 mg/dL High 7-25 [facility] Comment on above: Performed By: #### 0 0121, 36119, 07392, 27437 ####[facility] [place], [place] [address] [place] [address] CT BRAIN PERFUSION 017 CT BRAIN PERFUSION [facility] Gtosr[address] [place] [address] Patient Name: REMINGTON BARKER : 1955Sex: MAge: Race: WhiteMRN: [id number]. Location: EMERPatient Status: EVisit #: [id number] Date: 03/17/2017 5:20:00 PMCompleted Date: 03/17/2017 06:15 PMRequesting Provider: DONNA ADKINS Attending Provider: DONNA ADKINS Report Copy To: Signs & Symptoms: OtherHistory: Patient history not availableComments: Other, right weakness left gaze prefExam: CT BRAIN PERFUSIONAccession #: [id number] CT BRAIN PERFUSION, CTA NECK 03/17/2017 6:15 PM EDT SIGNS AND SYMPTOMS: Stroke alert, rt side weakness with aphasia today. QUESTION FOR THE RADIOLOGIST: Other, right weakness left gaze pref CONTRAST: Contrast: OMNIPAQUE 350 (LOCM), 50 milliliter, Intravenous (accession [id number]), Contrast: OMNIPAQUE 350 (LOCM), 70 milliliter, Intravenous (accession [id number]) TECHNIQUE: Multi-detector CT angiography head and neck [...] Electronically signed by:Jayashree Lin M.D.. Transcribed by: [email or web address], User Resident: Electronically Signed by: JAYASHREE LIN @ 03/17/2017 06:24 PM Normal [facility] Comment on above: Order Comment: Other , right weakness left gaze pref CTA NECKon 03-17-2017 CTA NECK [facility] Uwabjrqaa[address] [place] [address] Patient Name: REMINGTON BARKER : 1955Sex: MAge: Race: WhiteMRN: [id number]. Location: EMERPatient Status: EVisit #: [id number] Date: 03/17/2017 5:20:00 PMCompleted Date: 03/17/2017 06:15 PMRequesting Provider: DONNA ADKINS Attending Provider: DONNA ADKINS Report Copy To: Signs & Symptoms: OtherHistory: Patient history not availableComments: right weakness left gaze pref, aphasiaExam: CTA NECKAccession #: [id number] CT BRAIN PERFUSION, CTA NECK 03/17/2017 6:15 PM EDT SIGNS AND SYMPTOMS: Stroke alert, rt side weakness with aphasia today. QUESTION FOR THE RADIOLOGIST: Other, right weakness left gaze pref CONTRAST: Contrast: OMNIPAQUE 350 (LOCM), 50 milliliter, Intravenous (accession [id number]), Contrast: OMNIPAQUE 350 (LOCM), 70 milliliter, Intravenous (accession [id number]) TECHNIQUE: Multi-detector CT angiography head and neck [...] Electronically signed by:Jayashree Lin M.D.. Transcribed by: [email or web address], User Resident: Electronically Signed by: JAYASHREE LIN @ 03/17/2017 06:24 PM Normal [facility] Comment on above: Order Comment: right weakness left gaze pref, aphasia HEMOGLOBIN A1Con 03-17-2017 Glucose mass conc 177 mg/dL High 70-126 [facility] Comment on above: Order Comment: Yes: Add to Previous draw if able Performed By: #### 5 0103 ####[facility] [facility] [place] [place] [address], [facility] [[email or web address]] Hemoglobin A1c/Hemoglobin.tota l mass fraction (Bld) 7.8 % High 4.0-6.0 [facility] Comment on above: Order Comment: Yes: Add to Previous draw if able Performed By: #### 5 0103 ####[facility] [facility] [place] [place] [address], [facility] [[email or web address]] KEPPRA ILon 03-17-2017 IL Normal [facility] KEPPRA 3 ug/mL Normal [facility] Comment on above: Result Comment: A re ference range for Keppra has not been well established. The proposed therapeutic range for seizure control is 6-46 ug/mL. Pharmacokinetics of Keppra are affected by renal function. The relationship between serum concentrations and toxicity is not known. LACTATE BLOODon 03-17-2017 Lactate 1.1 mmol/L Normal .5-2.2 [facility] Comment on above: Performed By: #### 1 0054 ####[facility] MAGNESIUM BLOODon 03-17-2017 Magnesium 2.2 mg/dL Normal 1.9-2.7 [facility] Comment on above: Performed By: #### 0 0121, 08570, 04185, 30071 ####[facility] MRI BRAIN WO CONTRASTon 02-22 MRI BRAIN WO CONTRAST [facility] SystemDepartment [facility] Xyobtxoal[address] [place] [id number] Patient Name: REMINGTON BARKER : 1955Sex: MAge: Race: WhiteMRN: [id number]. Location: EMERPatient Status: IVisit #: [id number] Date: 03/17/2017 6:35:00 PMCompleted Date: 03/17/2017 08:48 PMRequesting Provider: DONNA ADKINS Attending Provider: DONNA ADKINS Report Copy To: Signs & Symptoms: AphasiaHistory: Patient history not availableComments: R/O CVA, aphasia left preference right weaknessExam: MRI BRAIN WO CONTRASTAccession #: [id number] MRI BRAIN WO CONTRAST 03/17/2017 8:48 PM EDT SIGN AND SYMPTOMS: Aphasia TECHNOLOGIST COMMENTS: Patient found unresponsive by neighbor earlier today. Transfer from [facility]. Patient has right side weakness and seizure [...] cells Electronically signed by:Ibrahima Garcia. Transcribed by: [email or web address], User Resident: Electronically Signed by: IBRAHIMA GARCIA @ 03/18/2017 11:02 AM Normal [facility] Comment on above: Order Comment: Other , right weakness left gaze pref PHOSPHORUS BLOODon 7 Phosphate 3.2 mg/dL Normal 2.5-5.0 [facility] Comment on above: Performed By: #### 0 0121, 30024, 30399, 81053 ####[facility] [place] [address], [facility] [[email or web address]] TSHon 03-17-2017 Thyroid stimulating hormone (TSH) 0.85 MICRO-IU/ML Normal 0.34-5.60 [facility] Comment on above: Performed By: #### 0 0121, 70197, 65428, 56586 ####[facility] Vital Signs Date Time Vital Sign Value Performing Clinician Facility 04-09-2024 10:47-0400 Blood Pressure Location Chris NOONAN [facility] 04-09-2024 10:47-0400 Diastolic blood pressure 77 mm[Hg] Chris NOONAN [facility] 04-09-2024 10:47-0400 Heart rate 84 /min Chris NOONAN [facility] 04-09-2024 10:47-0400 Systolic blood pressure 136 mm[Hg] Chris NOONAN [facility] 12-31-2023 08:43-0400 Body height 170.[address] [facility] 12-31-2023 08:43-0400 Body mass index (BMI) [Ratio] 27.6 kg/m2 [facility] 12-31-2023 08:43-0400 Body weight 79.[address] [facility] 12-31-2023 08:43-0400 Diastolic blood pressure 89 mm[Hg] [facility] 12-31-2023 08:43-0400 Heart rate 71 /min [facility] 12-31-2023 08:43-0400 Respiratory rate 12 /min [facility] 12-31-2023 08:43-0400 Systolic blood pressure 139 mm[Hg] [facility] 12-22-2023 10:20-0400 Blood Pressure Location Chris NOONAN [facility] 12-22-2023 10:20-0400 Diastolic blood pressure 74 mm[Hg] Chris NOONAN [facility] 12-22-2023 10:20-0400 Heart rate 69 /min Chris NOONAN [facility] 12-22-2023 10:20-0400 Respiratory rate 16 /min Chris NOONAN [facility] 12-22-2023 10:20-0400 Systolic blood pressure 139 mm[Hg] Chris NOONAN [facility] 09-25-2023 09:05-0400 Body height 170.[address] [facility] 09-25-2023 09:05-0400 Body mass index (BMI) [Ratio] 28 kg/m2 [facility] 09-25-2023 09:05-0400 Body weight 81.[address] [facility] 09-25-2023 09:05-0400 Diastolic blood pressure 82 mm[Hg] [facility] 09-25-2023 09:05-0400 Heart rate 67 /min [facility] 09-25-2023 09:05-0400 Respiratory rate 12 /min [facility] 09-25-2023 09:05-0400 Systolic blood pressure 131 mm[Hg] [facility] 12-18-2022 09:00-0400 Body height 170.18 cm Gasper Ball Other [facility] [employer] Other 12-18-2022 09:00-0400 Body mass index (BMI) [Ratio] 28.69 kg/m2 Gasper Ball Other [facility] [facility] [employer] Other 12-18-2022 09:00-0400 Body weight 83.1 kg Gasper Ball Other [facility] [employer] Other 12-18-2022 09:00-0400 Diastolic blood pressure 88 mm[Hg] Gasper Ball Other [employer] Other 12-18-2022 09:00-0400 Respiratory rate 12 /min Gasper Ball Other [employer] Other 12-18-2022 09:00-0400 Systolic blood pressure 139 mm[Hg] Gasper Ball Other [employer] Other 09-17-2022 10:00-0400 Body height 170.18 cm Gasper Ball Other [employer] Other 09-17-2022 10:00-0400 Body mass index (BMI) [Ratio] 29.29 kg/m2 Gasper Ball Other [employer] Other 09-17-2022 10:00-0400 Body weight 84.82 kg Gasper Ball Other [employer] Other 09-17-2022 10:00-0400 Diastolic blood pressure 73 mm[Hg] Gasper Ball Other [employer] Other 09-17-2022 10:00-0400 Respiratory rate 12 /min Gasper Ball Other [employer] Other 09-17-2022 10:00-0400 Systolic blood pressure 119 mm[Hg] Gasper Ball Other [employer] Other Encounters Encounter Date Encounter Type Care Provider Facility Start: 04-09-2024 End: 04-09-2024 ambulatory Chris NOONAN Facility:[facility] Start: 04-09-2024 End: 04-09-2024 Patient encounter procedure Chris NOONAN [facility] Start: 03-29-2024 End: 03-29-2024 ambulatory DO Gasper Ball Work Phone: [facility] Work Phone: Start: 03-29-2024 End: 03-29-2024 Departed Referred DO Gasper Thurman Work Phone: [facility] Start: 03-29-2024 End: 03-29-2024 ambulatory Chris NOONAN Facility:CD:[id number] Start: 01-21-2024 End: 01-21-2024 Patient encounter procedure DO Gasper Thurman Work Phone: [facility]-MRI [facility] [place] Work Phone: Start: 01-21-2024 End: 01-21-2024 ambulatory DO Gasper Thurman Work Phone: [facility] Work Phone: Start: 12-31-2023 End: 12-31-2023 ambulatory [facility] Work Phone: Start: 12-31-2023 End: 12-31-2023 Patient encounter procedure [facility] Work Phone: Start: 12-22-2023 End: 12-22-2023 ambulatory Chris Cheyenne NOONAN Facility:[facility] Start: 12-22-2023 End: 12-22-2023 Patient encounter procedure Chris R NOONAN [facility] Start: 11-14-2023 ambulatory Chriskristi NOONAN Facility :[facility] [place] Start: 11-11-2023 Non-patient / Non-visit [facility] Work Phone: Start: 10-28-2023 End: 10-28-2023 ambulatory NBA CONTRERAS Not Available Start: 10-03-2023 Non-patient / Non-visit [facility] Work Phone: Start: 09-25-2023 End: 09-25-2023 ambulatory [facility] Work Phone: Start: 09-25-2023 End: 09-25-2023 Patient encounter procedure [facility] Work Phone: Start: 06-30-2023 End: 06-30-2023 ambulatory Gasper Thurman Other [employer] Other Start: 06-30-2023 Telephone encounter Gasper Thurman [facility] Start: 06-22-2023 End: 06-22-2023 ambulatory Gasper Thurman Other [employer] Other Start: 06-22-2023 Telephone encounter Gasper DAILY [facility] Start: 06-05-2023 End: 06-05-2023 ambulatory Gasper Thurman Other [employer] Other Start: 06-05-2023 Telephone encounter Gasper DAILY [facility] Start: 03-18-2023 End: 03-18-2023 ambulatory Gasper Thurman Other [employer] Other Start: 03-18-2023 Telephone encounter Gasper DAILY [facility] Start: 12-18-2022 End: 12-18-2022 ambulatory Gasper Thurman Other [employer] Other Start: 12-18-2022 Office outpatient vi sit 25 minutes Gasper Thurman [facility] Start: 10-17-2022 End: 10-18-[address] GASPER THURMAN Facility:[facility] Start: 09-17-2022 End: 09-17-2022 ambulatory Gasper Thurman Other [employer] Other Start: 09-17-2022 Encounter for genera l adult medical examination without abnormal findings Gasper Thurman [facility] Start: 09-17-2022 Periodic preventive med est patient 65yrs& older Gasper Thurman [facility] Start: 09-15-2022 Encounter for genera l adult medical examination without abnormal findings DR GASPER THURMAN [facility] Start: 09-12-2022 End: 09-13-[address] GASPER THURMAN Facility:[facility] Start: 09-12-2022 End: 09-13-2022 Encounter for general adult medical examination without abnormal findings DR GASPER THURMAN Facility:[facility] Start: 06-20-2022 End: 06-20-[address] CADENCE THORNTON Facility:[facility] Start: 06-11-2022 End: 06-12-[address] GASPER THURMAN Facility:[facility] Start: 03-13-2022 Adult health examination Gasper Thurman Other [employer] Other Start: 03-08-2022 End: 03-09-[address] GASPER THURMAN Facility:[facility] Start: 11-07-2021 Patient encounter procedure [facility] Start: 01-30-2021 End: 01-31-2021 ambulatory [facility] Start: 01-12-2021 End: 01-12-2021 ambulatory UNKNOWN PROVIDER [facility] Start: 01-08-2021 End: 01-09-2021 ambulatory [facility] Start: 01-08-2021 End: 01-08-2021 [facility] Start: 01-01-2021 End: 01-02-2021 ambulatory [facility] Start: 01-01-2021 End: 01-01-2021 [facility] Start: 12-22-2020 ambulatory UNKNOWN PROVIDER Facili [...] Facility:[facility] Start: 12-10-2020 ambulatory NESTOR BROOKS Facilit y:[facility] Start: 12-08-2020 End: 12-08-2020 ambulatory NESTOR BROOKS Facility:[facility] Start: 12-08-2020 End: 12-28-2020 Evaluation and management of inpatient IP PHYSICAL THERAPY SERVICE REQUEST Facility:[facility] Start: 03-17-2017 End: 03-28-2017 Evaluation and management of inpatient GASPER THURMAN Facility:[facility] Procedures Date Procedure Procedure Detail Performing Clinician Start: 03-29-2024 Transrectal biopsy o f prostate using ultrasound guidance Chris NOONAN Start: 01-21-2024 MR prostate wo/w con DO Gasper Thurman Work Phone: Start: 09-12-[address] DAVIS IN [place] Comment on above: Performed By: #### P [facility] ####[facility] [address] [place], [place] [address]Zw. Quynhaníbal Gore Start: 01-08-2021 Comprehensive metabo lic panel [...] Guidance YUKO THORNE Start: 03-17-2017 MEASUREMENT OF SECTION BEAMER E LECTR ACTIVITY, MANUFACTURER REPRESENTATIVE APPROACH ENRIQUE OSORIO Start: 03-17-2017 MONITORING OF SECTION BEAMER EL ECTR ACTIVITY, MANUFACTURER REPRESENTATIVE APPROACH HOA CHANEL Start: 01-23-2017 General examination of patient Gasper Thurman Other Cardiac catheter (ph ysical object) Chris NOONAN Colonoscopy Chris NOONAN Depression screening Cindi Thurman Other Screening for malign ant neoplasm of colon Gasper Thurman Other Plan of Treatment Date Care Activity Detail Author Start: 03-29-2024 [facility] Start: 01-21-2024 MR Prostate WO and W contrast IV [facility] Start: 01-21-2024 MR prostate wo/w con MR prostate wo/w con [facility] Start: 02-21-2022 Influenza vaccination [facility]UEN[facility] ([facility]ed) [facility] Start: 01-08-2022 Creatinine measurement Creatinine monitoring [employer] Phone: Start: 01-08-2022 Potassium monitoring Potassium monitoring [employer] Phone: Start: 01-01-2022 Creatinine measurement Creatinine monitoring [employer] Phone: Start: 01-01-2022 Potassium monitoring Potassium monitoring [employer] Phone: Start: 2021 ADVANCE DIRECTIVE DISCUSSION ADVANCE DIRECTIVE DISCUSSION [facility] Start: 2021 PNEUMOVAX AGE 65 AND OVER WITH 5YR LOOKBACK (#1) PNEUMOVAX AGE 65 AND OVER WITH 5YR LOOKBACK (#1) [facility] Start: 02-21-2021 Influenza vaccination Flu vaccine (#1) [employer] Phone: Start: 2011 PROSTATE CANCER SCREENING DISCUSSION PROSTATE CANCER SCREENING DISCUSSION [facility] Start: 2006 Shingles Vaccine (1 of 2) Shingles Vaccine (1 of 2) [facility] Work Phone: Start: 2006 SHINGRIX VACCINE (1 of 2) SHINGRIX VACCINE (1 of 2) [facility] Start: 2001 COLOGUARD (FIT-DNA) COLOGUARD (FIT-DNA) [facility] Start: 2001 Colonoscopy COLONOSCOPY [facility] Start: 2001 COLORECTAL CANCER SCREENING COLORECTAL CANCER SCREENING [facility] Start: [address] COLONOGRAPHY [facility] Start: 2001 DIABETES SCREEN DIABETES SCREEN [facility] Start: 2001 FECAL OCCULT BLOOD FECAL OCCULT BLOOD [facility] Start: 2001 Screening for malignant neoplasm of colon Colon cancer screen colonoscopy [employer] Phone: Start: 2001 SIGMOIDOSCOPY SIGMOIDOSCOPY [facility] Start: 1991 LIPID SCREEN LIPID SCREEN [facility] Start: 1975 DTaP/Tdap/Td vaccine (1 - Tdap) DTaP/Tdap/Td vaccine (1 - Tdap) [employer] Phone: Start: 1975 Urine microalbumin profile DTAP,TDAP,TD (1 - Tdap) [facility] Start: 1974 Diabetic microalbuminuria test Diabetic microalbuminuria test [employer] Phone: Start: 1974 HEPATITIS C SCREENING HEPATITIS C SCREENING [facility] Start: 1974 HIV SCREENING HIV SCREENING [facility] Start: 1971 HIV screening HIV screen [employer] Phone: Start: 1968 Adult depression screening assessment DEPRESSION SCREENING [facility] Start: 1968 COVID-19 Vaccine (1) COVID-19 Vaccine (1) [employer] Phone: Start: 1966 Diabetic foot examination Diabetic foot exam [employer] Phone: Start: 1966 Diabetic retinal exam Diabetic retinal exam [employer] Phone: Start: 1966 Hemoglobin A1c measurement A1C test (Diabetic or Prediabetic) [employer] Phone: Start: 1966 Lipid panel Lipid screen [employer] Phone: Start: 1962 Pneumococcal 0-64 years Vaccine (1 of 2 - PPSV23) Pneumococcal 0-64 years Vaccine (1 of 2 - PPSV23) [employer] Phone: Start: 1961 COVID-19 VACCINE (#1) COVID-19 VACCINE (#1) [facility] Start: 1956 Hepatitis C screening Hepatitis C screen [employer] Phone: [facility] Immunizations Immunization Date Immunization Notes Care Provider Fa cility 07-26-2020 COVID-19 Vaccine Mod connor - Documentation Purposes Only Gasper Thurman Other [facility] 06-27-2020 COVID-19 Vaccine Mod connor - Documentation Purposes Only Gasper Thurman Other [facility] Payers Date Payer Category Payer Self-pay 2023 Unknown [id number] 2022 Blue Cross Blue Shield [id number] 2020 Unknown MMO MMO [employer] [id number] 2020-Present [phone] [address] [place] [address] PPO [id number] 2017 Unknown [id number] 2016 Unknown [id number] 1956 Unknown [id number] 2.16.840.1.246822.3.579.2.1 73 1956 Unknown [id number] 2.16.840.1.757140.3.579.2.1 73 1956 Unknown [id number] 2.16.840.1.428910.3.579.2.7 32 1956 Unknown [id number] 2.16.840.1.337587.3.579.2.7 32 1956 Unknown [id number] 2.16.840.1.281609.3.579.2.7 32 1956 Unknown [id number] 2.16.840.1.391262.3.579.2.7 32 1956 Unknown [id number] 2.16840.1.647815.3.579.2.7 32 1956 Unknown [id number] 2.16.840.1.123810.3.579.2.7 32 1956 Unknown [id number] 2.840.1.610713.3.579.2.7 32 1956 Unknown [id number] 2.840.1.185874.3.579.2.7 32 1956 Unknown [id number] 2.840.1.197166.3.579.2.7 32 1956 Unknown [id number] 2.840.1.912110.3.579.2.7 32 1956 Unknown [id number] 2.840.1.572344.3.579.2.7 32 1956 Unknown [id number] 2.840.1.559287.3.579.2.7 32 1956 Unknown [id number] 2.16840.1.017801.3.579.2.7 32 1956 Unknown [id number] 2.16840.1.559622.3.579.2.7 1956 Unknown [id number] 2.16.840.1.672201.3.579.2.7 32 1956 Unknown [id number] 2.840.1.824463.3.579.2.7 32 1956 Unknown [id number] 2.16.840.1.495060.3.579.2.7 32 1956 Unknown [id number] 2.16.840.1.424199.3.579.2.7 32 1956 Unknown [id number] 2.16.840.1.606878.3.579.2.7 32 1956 Unknown [id number] 2.16.840.1.877447.3.579.2.7 32 1956 Unknown [id number] 2.16.840.1.125801.3.579.2.7 32 1956 Unknown [id number] 2.16.840.1.138082.3.579.2.7 32 1956 Unknown [id number] 2.16.840.1.524821.3.579.2.7 32 1956 Unknown [id number] 2.16.840.1.248912.3.579.2.5 93 1956 Unknown [id number] 2.16.840.1.686100.3.579.2.5 93 1956 Unknown [id number] 2.16.840.1.112483.3.579.2.5 93 1956 Unknown [id number] 2.16.840.1.199008.3.579.2.5 93 1956 Unknown [id number] 2.16.840.1.547348.3.579.2.5 93 1956 Unknown [id number] 2.16.840.1.185012.3.579.2.1 259 1956 Unknown [id number] 2.16.840.1.942808.3.579.2.7 27 1956 Unknown [id number] 2.16.840.1.356185.3.579.2.7 27 1956 Unknown [id number] 2.16.840.1.809992.3.579.2.7 27 1956 Unknown [id number] 2.16.840.1.869227.3.579.2.7 27 Medicare Medicare-OP No Part B [id number] Unknown [id number] 2.16.840.1.228340.3.579.2.5 31 Unknown [id number] 2.16.840.1.690132.3.579.2.5 31 Social History Date Type Detail Facility Start: 03-28-2017 [facility] Start: 1955 Sex Assigned At Not on file M [employer] Phone: Sex Assigned At [facility] Start: 1955 Sex Assigned At Male F [facility] Start: 12-22-2023 End: 04-09-2024 Tobacco smoking status Never smoked tobacco (finding) [facility] Tobacco smoking status Never [facility] Functional Status Date Assessment Result Facility 04-09-2024 Functional Status N/A [facility] 12-22-2023 Functional Status N/A [facility] Clinical Notes 12-08-2020 to 04-09-2024 Note Date & Type Note Facility 04-09-2024 Hospital Discharge instructions Patient Education 04/09/2024 11:51:15 Prostate Cancer Screening Prostate Cancer Screening Prostate [...] treatment? Where to find more information The [place] [employer]: www.cancer.org [employer] [employer]: www.auanet.org Contact a health care [...] provider. Document Revised: 12/03/2021 Document Reviewed: 12/03/2021 [employer] Patient Education 2023 [employer]. Follow Up Care 01/29/2024 16:16:35 With:SHAISTA NARAYANAN, Chris Quinn, URL Address: [address] [place], [place] [id number]- When: Unknown [facility] Gina 04-09-2024 Note Patient Education Oncology Prostate Cancer Screening [...] Where to find more information ? The [place] [employer]: www.cancer.org ? [place] [employer]: www.auanet.org Contact a health care [...] of the rectum. (more content not included)... [facility] 12-22-2023 Hospital Discharge instructions Patient Education 12/22/2023 [...] treatment? Where to find more information The [place] [employer]: www.cancer.org [employer] [employer]: www.auanet.org Contact a health care [...] provider. Document Revised: 12/03/2021 Document Reviewed: 12/03/2021 [employer] Patient Education 2022 [employer]. Follow Up Care 11/20/2023 10:45:27 With:SHAISTA NARAYANAN, Chris Quinn, URL Address: [facility] [address] , [place] [phone] When: Unknown [facility] 12-22-2023 Note Urology Office/Clini c Note Chief [...] as primary historian. Follows with neurology in [place] for seizures. 1. Elevated PSA (R97.20: Elevated [...] leaving office today -Schedule prostate MRI @ [facility]. Will call pt with results. -Will schedule [...] When Contact Information SHAISTA NARAYANAN, Chris Quinn, [facility] [address], [place] [phone] Additional Instructions: sched prostate MRI and biopsy [...] 1 tab(s), Oral (more content not included)... [facility] Comment on above: Result Comment: Elec [...] Where to find more information ? The [place] [employer]: www.cancer.org ? [place] [employer]: www.auanet.org Contact a health care [...] of the rectum. (more content not included)... [facility] 06-22-2023 Evaluation note Encounter Date Diagnosis Assessment Notes May, Type 2 diabetes mellitus with hyperglycemia , without long-term current use of insulin (ICD-10 - E11.65) [facility] Other 12-14-2023 Evaluation note* Encounter Date Diagnosis Assessment Notes Treatment Notes Treatment Clinical Notes May, Type 2 diabetes mellitus with hyperglycemia, without long-term current use of insulin (ICD-10 - E11.65) [facility] Other 12-14-2023 Evaluation note* Encounter Date Diagnosis Assessment Notes Treatment Notes Treatment Clinical Notes May, Elevated cholesterol (ICD-10 - E78.00) May, Primary hypertension (ICD-10 - I10) [facility] Other 09-26-2023 Evaluation note* Encounter Date Diagnosis Assessment Notes Treatment Notes Treatment Clinical Notes Feb, Type 2 diabetes mellitus with hyperglycemia, without long-term current use of insulin (ICD-10 - E11.65) [facility] Other 06-28-2023 Evaluation note* Encounter Date Diagnosis [...] Neurology since his last OV, not changes [facility] Other 03-28-2023 Evaluation note* Encounter Date Diagnosis [...] w/ CRC screening. Colonoscopy due next year [facility] Other [id number] NotePROCEDURE: CT CSPINE WO CON COMPARISON: None. [...] Electronically authenticated by: CADENCE THORNTON Date: 2022-06-20 12:21[facility]12-29-2022 NotePROCEDURE: XR HAND LT MIN 3V [...] Electronically authenticated by: CADENCE THORNTON Date: 2022-06-20 12:02[facility]07-08-2021 NoteThe [facility] HospitalMaltem Consulting [id number] NoteSW following for DC to SNF. There are no responses from the referrals that were sent yesterday [facility]. SW will continue to follow for DC planning. SW aware pt is not medically cleared for DC at this time. YUNIEL Sanderson Social WorkThe [facility] HospitalMaltem Consulting [phone] [id number] [phone] assisted with evaluating pt pain status and explaining plan of care. Pt denies pain and was instructed on the use of the GRAB JACK WORKER administration. Pt also aware he will be going to Step down for continued monitoring.[facility] Hospital[facility] Consult[facility] [id number] NoteOccupational Therapy AND Physical Therapy on 5C: Duplicate referrals received. Patient was evaluated 12/08/2020 with recommendation for d/c to acute rehab setting. OT AND PT will continue established POC. Sirena KUNZ, OTR/L Pager# [phone]06-18-2021 NotePRE-PROCEDURE NOTE Procedure: ultrasound guided left pleural drain placement Indication: effusion/empyema Site of Procedure: left Site Marked pre-procedure: Yes Pre-Procedure Pain Ratin/10 Ron Quintero MD RadiologyThe Adocia SystemEvaluation + Plan note No data available for this section [facility] evaluation noteNo [facility] [employer] Other Evaluation note* Diagnosis Onset Date Resolution Status Elevated cholesterol acute Hypertension acute Type 2 diabetes mellitus with hyperglycemia [facility] Work Phone: Evaluation note* Diagnosis Onset Date Resolution Status Elevated cholesterol acute Elevated PSA acute Hypertension acute Overweight acute Type 2 diabetes mellitus with hyperglycemia acute [facility] Work Phone: Hisnlbq general Narrative - Reported* Type Description Date [...] EART 2016 Hospitalization History SEE SURGICAL HX [facility] Other Hispvyo general Narrative - Reported* Type Description Date [...] History COLONOSCOPY (repeat 2023) 2019 Surgical History [facility] 2016 Surgical History CARDIAC CATHETERIZATION, LEFT H EART 2016 Hospitalization History SEE SURGICAL HX [facility] Other Progress note No data available for this section [facility] Gina Summary Purpose Family History No Family History [...] FoundDocuments on File Type Date Recorded 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 [employer] Expl 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 ACP-Advance Directive ACP-Power of Button Sewer Hand Advance Directive Response Recorded Date/ Time Advance [...] Chief Complaint 3 month follow up r97.20 Unknown Reason for Visit Elevated cholesterol Elevated PSA Hypertension Overweight Type 2 diabetes mellitus with hyperglycemia Additional Source Comments (unrecognized sect ion and content) No Status Records FoundNo Status Records FoundNo Status Records FoundNo Status Records FoundNo Status Records FoundNo Status Records FoundNo Status Records FoundNo Status Records Found INFORMATION SOURCE (unrecogn ized section and content) DATE CREATED AUTHOR 12/16/2017 [facility] DATE CREATED AUTHOR AUTHOR'S ORGANIZ ATION 12/23/2020 [facility] DATE CREATED AUTHOR AUTHOR'S ORGANIZ ATION 01/09/[address] [facility] DATE CREATED AUTHOR AUTHOR'S ORGANIZ ATION 07/23/2021 [facility] DATE CREATED AUTHOR AUTHOR'S ORGANIZ ATION 10/21/2022 [facility] DATE CREATED AUTHOR AUTHOR'S ORGANIZ ATION 10/29/2023 [facility] DATE CREATED AUTHOR AUTHOR'S ORGANIZ ATION 04/07/2024 [facility] DATE CREATED AUTHOR AUTHOR'S ORGANIZ ATION 04/12/2024 [facility] Source Comments (unrecognize d section and content) In the event this informatio n is protected by the Federal Confidentiality of Alcohol and Drug Abuse Patient Records regulations: The Federal rules restrict any use of the information to criminally investigate or prosecute any alcohol or drug abuse patient.[facility] Care Teams (unrecognized sec tion and content) Team Status: Active Member Role Status Dates Gasper Thurman DO Primary Care Provider Active Team Status: Inactive Member Role Status Dates Gasper Thurman DO Primary Care Provide r, Attending Provider Active Start: December 31, 2023 End: December 31, 2023 Team Status: Inactive Member Role Status Dates Gasper Thurman DO Primary Care Provider Active Start: January 21, 2024 End: January 21, 2024 Chris Noonan MD Attending Provider Active St art: January 21, 2024 End: January 21, 2024 Team Status: Inactive Member Role Status Dates Gasper Thurman DO Primary Care Provider Active Start: March 29, 2024 End: March 29, 2024 Chris Noonan MD Attending Provider Active St art: March 29, 2024 End: March 29, 2024 Team Status: Active Member Role Status Dates Gasper Thurman DO Primary Care Provide r, Attending Provider Active Start: October 03, 2023 Team Status: Active Member Role Status Dates Gasper Thurman DO Primary Care Provide r, Attending Provider Active Start: November 11, 2023 Screening Nurse Relationship Specialty Start Date End Date [address] [place] [address] PCP - General Emergency Medicine 07/20/15 Team Status: Inactive Member Role Status Dates Gasper Thurman DO Primary Care Provide r, Attending Provider Active Start: September 25, 2023 End: September 25, 2023 REASON FOR VISIT (unrecogniz ed section and content) 3 month Follow up3 month Fol [facility] upLab WorkWellnessrefillRefillsNo InformationLab results Goals [...] BE BASED ON THE PRIMARY CLINICAL RECORDS. [facility] [employer], [facility]. provides no warranty or guarantee of the accuracy or completeness of information in this document.
[2024-04-15 08:15] LABS: Estimated Average Glucose 151 mg/dL; Glycohemoglobin A1C 6.9 % (4.5-6.2)
== END 2024-04-15 06:52 | disposition home or self-care (01) ==
LOC: LAB 06:52
PROVIDERS: PCP Internal Medicine; Visit Provider Internal Medicine
DX: E11.65 Type 2 diabetes mellitus with hyperglycemia (principal)
CPT/HCPCS: 36415; 83036

== ENCOUNTER 2024-10-08 07:22 | Outpatient (OUT) | payer BC, SELFPAY ==
--- OUTSIDE RECORDS SUMMARY | 2024-10-08 07:27 | XMS_ITS | CCD ---
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 RISK Performed By: #### L IPID, CMP, TSH #### [facility] [address] [address] [address] Gaetano Gore Cholesterol [Mass/Vol] 170 mg/dL Normal <=200 [facility] Comment on above: Performed By: #### L IPID, CMP, TSH #### [facility] [address] [address] [address] Gaetano Gore Cholesterol in HDL [Mass/Vol] 33 mg/dL Critically low 40-60 [facility] Comment on above: Performed By: #### L IPID, CMP, TSH #### [facility] [address] [address] [address] Gaetano Gore Cholesterol in LDL [Mass/Vol] 110.0 mg/dL Normal [facility] Comment on above: Performed By: #### L IPID, CMP, TSH #### [facility] [address] [address] [address] Gaetano Gore Cholesterol.total/C holesterol in HDL [Mass ratio] 5.2 {ratio} Normal [facility] Comment on above: Performed By: #### L IPID, CMP, TSH #### [facility] [address] [address] [address] Gaetano Gore HDL NORMAL > or = 60 mg/dl - LO W CARDIOVASCULAR RISK <40 mg/dl - HIGH CARDIOVASCULAR RISK Normal [facility] Comment on above: Performed By: #### L IPID, CMP, TSH #### [facility] [address] [address] [address] Gaetano Gore LDL CALC NORMAL SEE BELOW Normal [facility] Comment on above: Result Comment: <100 mg/dl OPTIMAL 100 - 129 mg/dl NEAR OR ABOVE OPTIMAL 130 - 159 mg/dl BORDERLINE HIGH 160 - 189 mg/dl HIGH >190 mg/dl VERY HIGH Performed By: #### L IPID, CMP, TSH #### [facility] [address] [address] [address] Gaetano Gore Triglyceride [Mass/Vol] 135 mg/dL Normal <=150 [facility] Comment on above: Performed By: #### L IPID, CMP, TSH #### [facility] [address] [address] [address] Gaetano Gore VLDL CALC 27.0 mg/dL Normal [facility] Comment on above: Performed By: #### L IPID, CMP, TSH #### [facility] [address] [address] [address] Gaetano Gore PROF 14(COMP METB)on 023 Albumin [Mass/Vol] 3.8 g/dL Normal 3.4-5.0 [facility] Comment on above: Performed By: #### L IPID, CMP, TSH #### [facility] [address] [address] [address] Gaetano Gore Albumin/Globulin [Mass ratio] 1.3 {ratio} Normal [facility] Comment on above: Performed By: #### L IPID, CMP, TSH #### [facility] [address] [address] [address] Gaetano Gore ALP [Catalytic activity/Vol] 60 U/L Normal 46-116 [facility] Comment on above: Performed By: #### L IPID, CMP, TSH #### [facility] [address] [address] [address] Gaetano Gore ALT [Catalytic activity/Vol] 25 U/L Normal 16-63 [facility] Comment on above: Performed By: #### L IPID, CMP, TSH #### [facility] [address] [address] [address] Gaetano Gore Anion gap [Moles/Vol] 11.7 mmol/L Normal [facility] Comment on above: Performed By: #### L IPID, CMP, TSH #### [facility] [address] [address] [address] Gaetano Gore AST [Catalytic activity/Vol] 22 U/L Normal 15-37 [facility] Comment on above: Performed By: #### L IPID, CMP, TSH #### [facility] [address] [address] [address] Gaetano Gore Bilirubin [Mass/Vol] 0.5 mg/dL Normal 0.2-1.0 [facility] Comment on above: Performed By: #### L IPID, CMP, TSH #### [facility] [address] [address] [address] Gaetano Gore Calcium [Mass/Vol] 9.2 mg/dL Normal 8.5-10.1 [facility] Comment on above: Performed By: #### L IPID, CMP, TSH #### [facility] [address] [place] [address] Dr. Gaetano Gore Chloride [Moles/Vol] 106 mmol/L Normal 98-107 [facility] Comment on above: Performed By: #### L IPID, CMP, TSH #### [facility] [address] [place] [address] Dr. Gaetano Gore CO2 [Moles/Vol] 28.0 mmol/L Normal 21.0-32.0 [facility] Comment on above: Performed By: #### L IPID, CMP, TSH #### [facility] [address] [place] [address] Dr. Gaetano Gore Creatinine [Mass/Vol] 1.11 mg/dL Normal 0.70-1.30 [facility] Comment on above: Performed By: #### L IPID, CMP, TSH #### [facility] [address] [place] [address] Dr. Gaetano Gore EGFR-AF [place] ISLANDER >60 Normal >=60 [facility] Comment on above: Performed By: #### L IPID, CMP, TSH #### [facility] [address] [place] [address] Dr. Gaetano Goer EGFR-NON AF [place]ER >60 Normal >=60 [facility] Comment on above: Performed By: #### L IPID, CMP, TSH #### [facility] [address] [place] [address] Dr. Gaetano Gore Globulin (S) [Mass/Vol] 2.9 g/dL Normal [facility] Comment on above: Performed By: #### L IPID, CMP, TSH #### [facility] [address] [place] [address] Dr. Gaetano Gore Glucose [Mass/Vol] 143 mg/dL Critically high 74-106 [facility] Comment on above: Performed By: #### L IPID, CMP, TSH #### [facility] [address] [place] [address] Dr. Gaetano Gore Potassium [Moles/Vol] 4.7 mmol/L Normal 3.5-5.1 [facility] Comment on above: Performed By: #### L IPID, CMP, TSH #### [facility] [address] [place] [address] Dr. Gaetano Gore Protein [Mass/Vol] 6.7 g/dL Normal 6.4-8.2 [facility] Comment on above: Performed By: #### L IPID, CMP, TSH #### [facility] [address] [place] [address] Dr. Gaetano Gore Sodium [Moles/Vol] 141 mmol/L Normal 136-145 [facility] Comment on above: Performed By: #### L IPID CMP, TSH #### [facility] [address] [place] [address] Dr. Gaetano Gore Urea nitrogen [Mass/Vol] 28.0 mg/dL Critically high 7.0-18.0 [facility] Comment on above: Performed By: #### L IPID, CMP, TSH #### [facility] [address] [place] [address] Dr. Gaetano Gore Urea nitrogen/Creatinine [Mass ratio] 25.2 mg/mg Normal [facility] Comment on above: Performed By: #### L IPID, CMP, TSH #### [facility] [address] [place] [address] Dr. Gaetano Gore TSHon 09-12-2022 TSH 2.326 uIU/mL Normal 0.358-3.74 0 [facility] Comment on above: Performed By: #### L IPID, CMP, TSH #### [facility] [address] [address] [address] FACIAL BONES WO [...] CADENCE THORNTON Date: 2022-06-20 13:03 Normal [facility] CT HEAD WO CONon 06-20-2022 CT [...] by: CADENCE THORNTON Date: 2022-06-20 12:17 Normal [facility] GLYCOHEMOGLOBIN A1Con 2021 ADA RECOMMENDATION SEE BELOW Normal [facility] Comment on above: Result Comment: ADA RECOMMENDED LIMIT 4.0 - 6.0 ADA THERAPEUTIC TARGET < 7.0 ACTION SUGGESTED > 7.0 Performed By: #### A 1C #### [facility] [address] [address] [address] Gaetano Gore Glucose [Mass/Vol] 171 mg/dL Normal [facility] Comment on above: Performed By: #### A 1C #### [facility] [address] [address] [address] Gaetano Gore HbA1c (Bld) [Mass fraction] 7.6 % Critically high 4.5-6.2 [facility] Comment on above: Performed By: #### A 1C #### [facility] [address] [address] [address] Gaetano Gore GLYCOHEMOGLOBIN A1Con 2021 ADA RECOMMENDATION SEE BELOW Normal [facility] Comment on above: Result Comment: ADA RECOMMENDED LIMIT 4.0 - 6.0 ADA THERAPEUTIC TARGET < 7.0 ACTION SUGGESTED > 7.0 Performed By: #### A 1C ####[facility] [id number] [address]Dr. Gaetano Gore Glucose [Mass/Vol] 203 mg/dL Normal [facility] Comment on above: Performed By: #### A 1C ####[facility] [id number] [address]Dr. Gaetano Gore HbA1c (Bld) [Mass fraction] 8.7 % Critically high 4.5-6.2 [facility] Comment on above: Performed By: #### A 1C ####[facility] [address] [address]Dr. Gaetano Gore Progress Noteson 01-30-2021 Project Engineering Director Authentication Interface Message Text Normal [facility] [employer] [facility] Project Engineering Director Authentication Interface Message Text .Patient was identified by name and date of . Janis Lai .Patient at risk for falls:No Falls Risk protocol implemented: No Pt accompanied by brother. Normal [facility] XR CHEST 2 VIEW PA+LATon XR CHEST 2 VIEW PA+LAT Normal [facility] Patient Instructionson 01-12 Project Engineering Director Authentication Interface Message Text No specific neurosurgical follow up or imaging needed Normal [facility] Progress Noteson 01-12-2021 Project Engineering Director Authentication Interface Message Text Normal [facility] CBCon 01-08-2021 Erythrocyte distribution width (RBC) [Ratio] 14.5 % High 11.8-14.4 [facility] Comment on above: Performed By: #### C P, CBC #### [address] [place] [address] [employer] Pallet Builder: Cadence Decker MD Hematocrit (Bld) [Volume fraction] 31.9 % Low 40.7-50.3 [facility] Comment on above: Performed By: #### C P, CBC #### [address] [place] [address] [employer] Pallet Builder: Cadence Decker MD Hemoglobin (Bld) [Mass/Vol] 9.5 g/dL Low 13.0-17.0 [facility] Comment on above: Performed By: #### C P, CBC #### [address] [place], [place] [id number] [employer] Pal[employer] Builder: Cadence Decker MD MCH (RBC) [Entitic mass] 27.9 pg Normal 25.2-33.5 [facility] Comment on above: Performed By: #### C P, CBC #### [address] [place] [address] [employer] Builder: Cadence Decker MD MCHC (RBC) [Mass/Vol] 29.8 g/dL Normal 28.4-34.8 [facility] Comment on above: Performed By: #### C P, CBC #### [address] [place] [address] [employer] Builder: Cadence Decker MD MCV (RBC) [Entitic vol] 93.5 fL Normal 82.6-102.9 [facility] Comment on above: Performed By: #### C P, CBC #### [address] [place], [place] [id number] [employer] Builder: Cadence Decker MD NRBC Automated 0.0 per 100 WBC Normal 0.0 [facility] Comment on above: Performed By: #### C P, CBC #### [facility] [address] [place], [place] [id number] [employer] Builder: Cadence Decker MD Platelet mean volume (Bld) [Entitic vol] 8.8 fL Normal 8.1-13.5 [facility] Comment on above: Performed By: #### C P, CBC #### [address] [place], [place] [id number] [employer] Builder: Cadence Decker MD Platelets (Bld) [#/Vol] 252 10*3/uL Normal 138-453 [facility] Comment on above: Performed By: #### C P, CBC #### [address] [place], [place] [id number] [employer] Builder: Cadence Decker MD RBC (Bld) [#/Vol] 3.41 10*6/uL Low 4.21-5.77 [facility] Comment on above: Performed By: #### C P, CBC #### [address] [place], [place] [id number] [employer] Builder: Cadence Decker MD WBC (Bld) [#/Vol] 4.4 10*3/uL Normal 3.5-11.3 [facility] Comment on above: Performed By: #### C P, CBC #### [address] [place] [address] [employer] Builder: Cadence Decker MD CBCOrdered By: Yuko Hunt on 01-08-2021 Hematocrit (Bld) [Volume fraction] 31.9 % Low 40.7 - 50.3 % [facility] Work Phone: Hemoglobin.gastroin testinal spec 1 Ql (Stl) 9.5 g/dL Low 13.0 - 17.0 g/dL [employer] Phone: Interpretation and review of laboratory results Abnormal [employer] Phone: MCH (RBC) [Entitic mass] 27.9 pg 25.2 - 33.5 pg [employer] Phone: MCHC (RBC) [Mass/Vol] 29.8 g/dL 28.4 - 34.8 g/dL [employer] Phone: MCV (RBC) [Entitic vol] 93.5 fL 82.6 - 102.9 fL [employer] Phone: NRBC Automated 0.0 0.0 per 100 WBC [employer] Phone: Platelet distribution width (Bld) [Ratio] 14.5 % High 11.8 - 14.4 % [employer] Phone: Platelet mean volume (Bld) [Entitic vol] 8.8 fL 8.1 - 13.5 fL [employer] Phone: Platelets (Bld) [#/Vol] 252 10*3/uL [employer] Phone: RBC (Bld) [#/Vol] 3.41 10*6/uL Low 4.21 - 5.77 m/uL [employer] Phone: WBC (Bld) [#/Vol] 4.4 10*3/uL [facility]: [employer] Phone: Comp Metabolic Profon 2020 (cont.) Normal [facility] Comment on above: Result Comment: Aver age GFR for 60-69 years old: 85 mL/min/1.73sq m Chronic Kidney Disease: <60 mL/min/1.73sq m Kidney failure: <15 mL/min/1.73sq m eGFR calculated using average adult body mass. Additional eGFR calculator available at: http://www.globalrph.AdScale/multiple_crcl_2012.htm Performed By: #### C P, CBC #### [facility] [address] [place], [place] [id number] [employer] Pal[employer] Builder: Cadence Decker MD Albumin [Mass/Vol] 2.5 g/dL Low 3.5-5.2 [facility] Comment on above: Performed By: #### C P, CBC #### [facility] [address] [place], [place] [id number] [employer] Pallet Builder: Cadence Decker MD Albumin/Glob Ratio 0.6 Low 1.0-2.5 [facility] Comment on above: Performed By: #### C P, CBC #### [facility] [address] [place], [place] [id number] [employer] Pallet Builder: Cadence Decker MD Alkaline Phos 120 U/L Normal 40-129 [facility] Comment on above: Performed By: #### C P, CBC #### [facility] [address] [place], [place] [id number] [employer] Pallet Builder: Cadence Deckre MD ALT [Catalytic activity/Vol] U/L Low 5-41 [facility] Comment on above: Performed By: #### C P, CBC #### [facility] [address] [place], [place] [id number] [employer] Pal[employer] Builder: Cadence Decker MD Anion gap [Moles/Vol] 9 mmol/L Normal 9-17 [facility] Comment on above: Performed By: #### C P, CBC #### [facility] [address] [place] [address] [employer] Pallet Builder: Cadence Decker MD AST [Catalytic activity/Vol] 9 U/L Normal <40 [facility] Comment on above: Performed By: #### C P, CBC #### [facility] [address] [place], [place] [id number] [employer] Pallet Builder: Cadence Decker MD Bilirubin [Mass/Vol] 0.17 mg/dL Low 0.3-1.2 [facility] Comment on above: Performed By: #### C P, CBC #### [facility] [address] [place] [address] [employer] Pallet Builder: Cadence Decker MD BUN/CRE Ratio 28 High 9-20 [facility] Comment on above: Performed By: #### C P, CBC #### [facility] [address] [place] [address] [employer] Pallet Builder: Cadence Decker MD Calcium [Mass/Vol] 8.4 mg/dL Low 8.6-10.4 [facility] Comment on above: Performed By: #### C P, CBC #### [facility] [address] [place] [address] [place] [address] [employer] Pallet Builder: Cadence Decker MD Chloride [Moles/Vol] 103 mmol/L Normal 98-107 [facility] Comment on above: Performed By: #### C P, CBC #### [facility] [address] [place] [address] Dr[place], [place] [id number] [employer] Builder: Cadence Decker MD CO2 [Moles/Vol] 25 mmol/L Normal 20-31 [facility] Comment on above: Performed By: #### C P, CBC #### [facility] [address] [place], [place] [id number] [employer] Pallet Builder: Cadence Decker MD Creatinine [Mass/Vol] 0.61 mg/dL Low 0.70-1.20 [facility] Comment on above: Performed By: #### C P, CBC #### [facility] [address] [place] [address] [employer] Pallet Builder: Cadence Decker MD GFR, Amer >60 Normal >60 [facility] Comment on above: Performed By: #### C P, CBC #### [facility] [address] [place], [place] 2168[address] [employer] Builder: Cadence Decker MD GFR,non Amer >60 Normal >60 [facility] Comment on above: Performed By: #### C P, CBC #### [facility] [address] [place], [place] [id number] [employer] Builder: Cadence Decker MD Glucose [Mass/Vol] 130 mg/dL High 70-99 [facility] Comment on above: Performed By: #### C P, CBC #### [facility] [address] [place], [place] [id number] [employer] Pallet Builder: Cadence Decker MD Potassium [Moles/Vol] 4.8 mmol/L Normal 3.7-5.3 [facility] Comment on above: Performed By: #### C P, CBC #### [facility] [address] [place], [place] [id number] [employer] Pal[employer] Builder: Cadence Decker MD Protein [Mass/Vol] 6.7 g/dL Normal 6.4-8.3 [facility] Comment on above: Performed By: #### C P, CBC #### [facility] [address] [place], [place] [id number] [employer] Pallet Builder: Cadence Decker MD Sodium [Moles/Vol] 137 mmol/L Normal 135-144 [facility] Comment on above: Performed By: #### C P, CBC #### [facility] [address] [place], [place] [id number] [employer]let Builder: Cadence Decker MD Staging: Normal [facility] Comment on above: Result Comment: Stag e 1: Some kidney damage normal GFR Stage 2: Mild kidney damage GFR 60-89 Stage 3: Moderate kidney damage GFR 30-59 Stage 4: Severe kidney damage GFR 15-29 Stage 5: Severe kidney damage GFR <15 ESRD - chronic treatment by dialysis or transplant Performed By: #### C P, CBC #### [facility] [address] [place] [address] [employer] Pallet Builder: Cadence Decker MD Urea nitrogen [Mass/Vol] 17 mg/dL Normal 8-23 [facility] Comment on above: Performed By: #### C P, CBC #### [facility] [address] [place] [address] [employer] Pallet Builder: Cadence Decker MD Comprehensive Metabolic Pane lOrdered By: Yuko Hunt on 01-08-2021 Albumin [Mass/Vol] 2.5 g/dL Low 3.5 - 5.2 g/dL [employer] Phone: Albumin/Globulin [Mass ratio] 0.6 {ratio} Low [employer] Phone: ALP (Bld) [Catalytic activity/Vol] 120 U/L 40 - 129 U/L [facility] Phone: ALT [Catalytic activity/Vol] U/L Low 5 - 41 U/L [facility] Phone: Anion gap [Moles/Vol] 9 mmol/L 9 - 17 mmol/L [employer] Phone: AST [Catalytic activity/Vol] 9 U/L <40 [employer] Phone: Bilirubin [Mass/Vol] 0.17 mg/dL Low 0.3 - 1.2 mg/dL [employer] Phone: Calcium [Mass/Vol] 8.4 mg/dL Low 8.6 - 10. 4 mg/dL [employer] Phone: Chloride [Moles/Vol] 103 mmol/L 98 - 107 mmol/L [employer] Phone: CO2 [Moles/Vol] 25 mmol/L 20 - 31 mmol/L [employer] Phone: Creatinine [Mass/Vol] 0.61 mg/dL Low 0.70 - 1.20 mg/dL [employer] Phone: Free PSA/Total PSA [Mass fraction] 6.7 g/dL 6.4 - 8.3 g/dL [employer] Phone: GFR >60 >60 mL/min [employer] Phone: GFR Non- >60 >60 mL/min [employer] Phone: Glucose [Mass/Vol] 130 mg/dL High 70 - 99 mg/dL [employer] Phone: Interpretation and review of laboratory results Abnormal [employer] Phone: Potassium [Moles/Vol] 4.8 mmol/L 3.7 - 5.3 mmol/L [employer] Phone: Sodium [Moles/Vol] 137 mmol/L 135 - 144 mmol/L [employer] Phone: Urea nitrogen (BldV) [Mass/Vol] 17 mg/dL 8 - 23 mg/dL [employer] Phone: Urea nitrogen/Creatinine (Bld) [Mass ratio] 28 High [employer] Phone: [employer] Phone: Laboratory - Chemistry and C hemistry - challengeOrdered By: Yuko Hunt on 01-08-2021 GFR/1.73 sq M.predicted MDRD (S/P/Bld) [Vol rate/Area] [employer] Phone: Comment on above: Average GFR for 60-6 9 years old: 85 mL/min/1.73sq m Chronic Kidney Disease: <60 mL/min/1.73sq m Kidney failure: <15 mL/min/1.73sq m eGFR calculated using average adult body mass. Additional eGFR calculator available at: http://www.Zomato.AdScale/multiple_crcl_2012.htm Stage 1: Some kidney damage normal GFR Stage 2: Mild kidney damage GFR 60-89 Stage 3: Moderate kidney damage GFR 30-59 Stage 4: Severe kidney damage GFR 15-29 Stage 5: Severe kidney damage GFR <15 ESRD - chronic treatment by dialysis or transplant CBCon 01-01-2021 Erythrocyte distribution width (RBC) [Ratio] 14.9 % High 11.8-14.4 [facility] Comment on above: Performed By: #### C P, CBC #### [address] [place] [address] [employer] Pallet Builder: Cadence Decker MD Hematocrit (Bld) [Volume fraction] 27.0 % Low 40.7-50.3 [facility] Comment on above: Performed By: #### C P, CBC #### [address] [place] [address] Bulk Pallet Builder: Cadence Decker MD Hemoglobin (Bld) [Mass/Vol] 8.1 g/dL Low 13.0-17.0 [facility] Comment on above: Performed By: #### C P, CBC #### [address] [place], [place] [id number] [employer] Pallet Builder: Cadence Decker MD MCH (RBC) [Entitic mass] 28.6 pg Normal 25.2-33.5 [facility] Comment on above: Performed By: #### C P, CBC #### [address] [place] [address] Bulk Pallet Builder: Cadence Decker MD MCHC (RBC) [Mass/Vol] 30.0 g/dL Normal 28.4-34.8 [facility] Comment on above: Performed By: #### C P, CBC #### [address] [place] [address] [employer]k Pallet Builder: Cadence Decker MD MCV (RBC) [Entitic vol] 95.4 fL Normal 82.6-102.9 [facility] Comment on above: Performed By: #### C P, CBC #### [address] [place], [place] [id number] [employer]let Builder: Cadence Decker MD NRBC Automated 0.0 per 100 WBC Normal 0.0 [facility] Comment on above: Performed By: #### C P, CBC #### [facility] [address] [place] [address] [employer]k Pallet Builder: Cadence Decker MD Platelet mean volume (Bld) [Entitic vol] 9.2 fL Normal 8.1-13.5 [facility] Comment on above: Performed By: #### C P, CBC #### [facility] [address] [place] [address] Bulk Pallet Builder: Cadence Decker MD Platelets (Bld) [#/Vol] 230 10*3/uL Normal 138-453 [facility] Comment on above: Performed By: #### C P, CBC #### [facility] [address] [place] [address] Bulk Pallet Builder: Cadence Decker MD RBC (Bld) [#/Vol] 2.83 10*6/uL Low 4.21-5.77 [facility] [facility] Comment on above: Performed By: #### C P, CBC #### [facility] [address] [place] [address] Bulk Pallet Builder: Cadence Decker MD WBC (Bld) [#/Vol] 5.0 10*3/uL Normal 3.5-11.3 [facility] Comment on above: Performed By: #### C P, CBC #### [facility] [address] [place] [address] Bulk Pallet Builder: Cadence Decker MD CBCOrdered By: Yuko Hunt on 01-01-2021 Hematocrit (Bld) [Volume fraction] 27.0 % Low 40.7 - 50.3 % [facility] Work Phone: Hemoglobin.gastroin testinal spec 1 Ql (Stl) 8.1 g/dL Low 13.0 - 17.0 g/dL [employer] Phone: Interpretation and review of laboratory results Abnormal [employer] Phone: MCH (RBC) [Entitic mass] 28.6 pg 25.2 - 33.5 pg [employer] Phone: MCHC (RBC) [Mass/Vol] 30.0 g/dL 28.4 - 34.8 g/dL [employer] Phone: MCV (RBC) [Entitic vol] 95.4 fL 82.6 - 102.9 fL [employer] Phone: NRBC Automated 0.0 0.0 per 100 WBC [employer] Phone: Platelet distribution width (Bld) [Ratio] 14.9 % High 11.8 - 14.4 % [employer] Phone: Platelet mean volume (Bld) [Entitic vol] 9.2 fL 8.1 - 13.5 fL [employer] Phone: Platelets (Bld) [#/Vol] 230 10*3/uL [employer] Phone: RBC (Bld) [#/Vol] 2.83 10*6/uL Low 4.21 - 5.77 m/uL [facility] Phone: WBC (Bld) [#/Vol] 5.0 10*3/uL [employer] Phone: [employer] Phone: Comp Metabolic Profon 2020 (cont.) Normal [facility] Comment on above: Result Comment: Aver age GFR for 60-69 years old: 85 mL/min/1.73sq m Chronic Kidney Disease: <60 mL/min/1.73sq m Kidney failure: <15 mL/min/1.73sq m eGFR calculated using average adult body mass. Additional eGFR calculator available at: http://www.Zomato.AdScale/multiple_crcl_2012.htm Performed By: #### C P, CBC #### [facility] [address] [place], [place] [id number] Bulk Pallet Builder: Cadence Decker MD Albumin [Mass/Vol] 2.3 g/dL Low 3.5-5.2 [facility] Comment on above: Performed By: #### C P, CBC #### [facility] [address] [place], [place] [id number] Bulk Pallet Builder: Cadence Decker MD Albumin/Glob Ratio 0.5 Low 1.0-2.5 [facility] Comment on above: Performed By: #### C P, CBC #### [facility] [address] [place], [place] [id number] Bulk Pallet Builder: Cadence Decker MD Alkaline Phos 96 U/L Normal 40-129 [facility] Comment on above: Performed By: #### C P, CBC #### [facility] [address] [place] [address] Bulk Pallet Builder: Cadence Decker MD ALT [Catalytic activity/Vol] 7 U/L Normal 5-41 [facility] Comment on above: Performed By: #### C P, CBC #### [facility] [address] [place], [place] [id number] Bulk Pallet Builder: Cadence Decker MD Anion gap [Moles/Vol] 9 mmol/L Normal 9-17 [facility] Comment on above: Performed By: #### C P, CBC #### [facility] [address] [place] [address] Bulk Pallet Builder: Cadence Decker MD AST [Catalytic activity/Vol] 9 U/L Normal <40 [facility] Comment on above: Performed By: #### C P, CBC #### [facility] [address] [place], [place] [id number] Bulk Pallet Builder: Cadence Decker MD Bilirubin [Mass/Vol] 0.19 mg/dL Low 0.3-1.2 [facility] Comment on above: Performed By: #### C P, CBC #### [facility] [address] [place] [address] Bulk Pallet Builder: Cadence Decker MD BUN/CRE Ratio 20 Normal 9-20 [facility] Comment on above: Performed By: #### C P, CBC #### [facility] [address] [place] [address] Bulk Pallet Builder: Cadence Decker MD Calcium [Mass/Vol] 8.1 mg/dL Low 8.6-10.4 [facility] Comment on above: Performed By: #### C P, CBC #### [facility] [address] [place] [address] Bulk Pallet Builder: Cadence Decker MD Chloride [Moles/Vol] 99 mmol/L Normal 98-107 [facility] Comment on above: Performed By: #### C P, CBC #### [facility] [address] [place], [place] [id number] Bulk Pallet Builder: Cadence Decker MD CO2 [Moles/Vol] 25 mmol/L Normal 20-31 [facility] Comment on above: Performed By: #### C P, CBC #### [facility] [address] [place] [address] Bulk Pallet Builder: Cadence Decker MD Creatinine [Mass/Vol] 0.61 mg/dL Low 0.70-1.20 [facility] Comment on above: Performed By: #### C P, CBC #### [facility] [address] [place] [address] Bulk Pallet Builder: Cadence Decker MD GFR, Amer >60 Normal >60 [facility] Comment on above: Performed By: #### C P, CBC #### [facility] [address] [place], [place] [id number] Bulk Pallet Builder: Cadence Decker MD GFR,non Amer >60 Normal >60 [facility] Comment on above: Performed By: #### C P, CBC #### [facility] [address] [place], [place] [id number] Bulk Pallet Builder: Cadence Decker MD Glucose [Mass/Vol] 157 mg/dL High 70-99 [facility] Comment on above: Performed By: #### C P, CBC #### [facility] [address] [place], [place] [id number] Bulk Pallet Builder: Cadence Decker MD Potassium [Moles/Vol] 4.3 mmol/L Normal 3.7-5.3 [facility] Comment on above: Performed By: #### C P, CBC #### [facility] [address] [place] [address] Dr[place], [place] [id number] Bulk Pallet Builder: Cadence Decker MD Protein [Mass/Vol] 6.7 g/dL Normal 6.4-8.3 [facility] Comment on above: Performed By: #### C P, CBC #### [address] [place], [place] [phone] Bulk Pallet Builder: Cadence Decker MD Sodium [Moles/Vol] 133 mmol/L Low 135-144 [facility] Comment on above: Performed By: #### C P, CBC #### [address] [place] [address] Bulk Pallet Builder: Cadence Decker MD Staging: Normal [facility] Comment on above: Result Comment: Stag e 1: Some kidney damage normal GFR Stage 2: Mild kidney damage GFR 60-89 Stage 3: Moderate kidney damage GFR 30-59 Stage 4: Severe kidney damage GFR 15-29 Stage 5: Severe kidney damage GFR <15 ESRD - chronic treatment by dialysis or transplant Performed By: #### C P, CBC #### [facility] [address] [place] [address] Bulk Pallet Builder: Cadence Decker MD Urea nitrogen [Mass/Vol] 12 mg/dL Normal 8-23 [facility] Comment on above: Performed By: #### C P, CBC #### [facility] [address] [place] [address] Bulk Pallet Builder: Cadence Decker MD Comprehensive Metabolic Pane lOrdered By: Yuko Hunt on 01-01-2021 Albumin [Mass/Vol] 2.3 g/dL Low 3.5 - 5.2 g/dL [facility] Phone: Albumin/Globulin [Mass ratio] 0.5 {ratio} Low [employer] Phone: ALP (Bld) [Catalytic activity/Vol] 96 U/L 40 - 129 [facility]/L [facility]: ALT [Catalytic activity/Vol] 7 U/L 5 - 41 U/L [facility] Phone: Anion gap [Moles/Vol] 9 mmol/L 9 - 17 mmol/L [facility] Phone: AST [Catalytic activity/Vol] 9 U/L <40 [employer] Phone: Bilirubin [Mass/Vol] 0.19 mg/dL Low 0.3 - 1.2 mg/dL [employer] Phone: Calcium [Mass/Vol] 8.1 mg/dL Low 8.6 - 10. 4 mg/dL [employer] Phone: Chloride [Moles/Vol] 99 mmol/L 98 - 107 mmol/L [employer] Phone: CO2 [Moles/Vol] 25 mmol/L 20 - 31 mmol/L [employer] Phone: Creatinine [Mass/Vol] 0.61 mg/dL Low 0.70 - 1.20 mg/dL [employer] Phone: Free PSA/Total PSA [Mass fraction] 6.7 g/dL 6.4 - 8.3 g/dL [employer] Phone: GFR >60 >60 mL/min [employer] Phone: GFR Non- >60 >60 mL/min [employer] Phone: Glucose [Mass/Vol] 157 mg/dL High 70 - 99 mg/dL [employer] Phone: Interpretation and review of laboratory results Abnormal [employer] Phone: Potassium [Moles/Vol] 4.3 mmol/L 3.7 - 5.3 mmol/L [employer] Phone: Sodium [Moles/Vol] 133 mmol/L Low 135 - 144 mmol/L [employer] Phone: Urea nitrogen (BldV) [Mass/Vol] 12 mg/dL 8 - 23 mg/dL [employer] Phone: Urea nitrogen/Creatinine (Bld) [Mass ratio] 20 [employer] Phone: [employer] Phone: Laboratory - Chemistry and C hemistry - challengeOrdered By: Yuko Hunt on 01-01-2021 GFR/1.73 sq M.predicted MDRD (S/P/Bld) [Vol rate/Area] [employer] Phone: Comment on above: Average GFR for 60-6 9 years old: 85 mL/min/1.73sq m Chronic Kidney Disease: <60 mL/min/1.73sq m Kidney failure: <15 mL/min/1.73sq m eGFR calculated using average adult body mass. Additional eGFR calculator available at: http://www.Zomato.AdScale/multiple_crcl_2012.htm Stage 1: Some kidney damage normal GFR Stage 2: Mild kidney damage GFR 60-89 Stage 3: Moderate kidney damage GFR 30-59 Stage 4: Severe kidney damage GFR 15-29 Stage 5: Severe kidney damage GFR <15 ESRD - chronic treatment by dialysis or transplant COMPLETE BLOOD COUNTon 12-28 Erythrocyte distribution width (RBC) [Ratio] 15.5 % High 11.5-14.5 [facility] Comment on above: Performed By: #### C BC ####[facility] PATHOLOGY [id number] [place], [place], Hematocrit (Bld) [Volume fraction] 23.2 % Low 41.0-53.0 [facility] Comment on above: Performed By: #### C BC ####[facility] PATHOLOGY [id number] [place], Hemoglobin (Bld) [Mass/Vol] 7.7 g/dL Low 13.9-16.3 [facility] Comment on above: Performed By: #### C BC ####[facility] PATHOLOGY [id number] [place], [place], MCH (RBC) [Entitic mass] 29.9 pg Normal 26.0-34.0 [facility] Comment on above: Performed By: #### C BC ####[facility] PATHOLOGY [id number] [place], MCHC (RBC) [Mass/Vol] 33.2 g/dL Normal 32.0-35.9 [facility] Comment on above: Performed By: #### C BC ####[facility] PATHOLOGY [id number] [place], MCV (RBC) [Entitic vol] 90 fL Normal 80-100 [facility] Comment on above: Performed By: #### C BC ####[facility] PATHOLOGY [id number] [place], Platelet mean volume (Bld) [Entitic vol] 6.9 fL Low 7.5-11.2 [facility] Comment on above: Performed By: #### C BC ####[facility] PATHOLOGY [id number] [place], Platelets (Bld) [#/Vol] 231 10*3/uL Normal 150-400 [facility] Comment on above: Performed By: #### C BC ####[facility] [id number] [place], RBC (Bld) [#/Vol] 2.58 10*6/uL Low 4.50-5.90 [facility] Comment on above: Performed By: #### C BC ####[facility] [id number] [place], WBC (Bld) [#/Vol] 5.4 10*3/uL Normal 4.5-11.5 [facility] Comment on above: Performed By: #### C BC ####S PATHOLOGY [id number] [place], [place], Care Plan Noteon 12-28-2020 Project Engineering Director Authentication Interface Message Text Normal [facility] Consultson 12-28-2020 Project Engineering Director Authentication Interface Message Text Normal [facility] Discharge Planning Noteon Project Engineering Director Authentication Interface Message Text Normal [facility] GLUCOSE, FINGERSTICK-IN OFFI CEon 12-28-2020 Glucose [Mass/Vol] 186 mg/dL High 80-116 [facility] Comment on above: Performed By: #### 8 2948 ####NURSING GLUCOSE [id number] [place], [address] Glucose [Mass/Vol] 266 mg/dL High 80-116 [facility] Comment on above: Performed By: #### 8 2948 ####NURSING GLUCOSE [id number] [place], [address] Progress Noteson 12-28-2020 Project Engineering Director Authentication Interface Message Text Report called to [facility]. Normal [facility] Project Engineering Director Authentication Interface Message Text SW informed by admissions at [facility] that pre-cert has been obtained. SW to set up transport via [facility]. YUNIEL Sanderson Social Work Normal [facility] Project Engineering Director Authentication Interface Message Text Normal [facility] Care Plan Noteon 12-27-2020 Project Engineering Director Authentication Interface Message Text Normal [facility] Project Engineering Director Authentication Interface Message Text Normal [facility] Consultson 12-27-2020 Project Engineering Director Authentication Interface Message Text Normal [facility] GLUCOSE, FINGERSTICK-IN OFFI CEon 12-27-2020 Glucose [Mass/Vol] 215 mg/dL High 80-116 [facility] Comment on above: Performed By: #### 8 2948 ####NURSING GLUCOSE [id number] [facility] [place], [address] Glucose [Mass/Vol] 279 mg/dL High 80-116 [facility] Comment on above: Performed By: #### 8 2948 ####NURSING GLUCOSE [id number] [place], [address] Glucose [Mass/Vol] 213 mg/dL High 80-116 [facility] Comment on above: Performed By: #### 8 2948 ####NURSING GLUCOSE [id number] [place], [address] Progress Noteson 12-27-2020 Project Engineering Director Authentication Interface Message Text Normal [facility] Project Engineering Director Authentication Interface Message Text Normal [facility] Project Engineering Director Authentication Interface Message Text Normal [facility] Care Plan Noteon 12-26-2020 Project Engineering Director Authentication Interface Message Text Normal [facility] Consultson 12-26-2020 Project Engineering Director Authentication Interface Message Text Normal [facility] Project Engineering Director Authentication Interface Message Text Normal [facility] GLUCOSE, FINGERSTICK-IN OFFI CEon 12-26-2020 Glucose [Mass/Vol] 240 mg/dL High 80-116 [facility] Comment on above: Performed By: #### 8 2948 ####NURSING GLUCOSE [id number] [facility] [place], [address] Glucose [Mass/Vol] 171 mg/dL High 80-116 [facility] Comment on above: Performed By: #### 8 2948 ####NURSING GLUCOSE [id number] [place], [address] Glucose [Mass/Vol] 215 mg/dL High 80-116 [facility] Comment on above: Performed By: #### 8 2948 ####NURSING GLUCOSE [id number] [place], [address] Glucose [Mass/Vol] 151 mg/dL High 80-116 [facility] Comment on above: Performed By: #### 8 2948 ####NURSING GLUCOSE [id number] [place], [address] Progress Noteson 12-26-2020 Project Engineering Director Authentication Interface Message Text Normal [facility] Project Engineering Director Authentication Interface Message Text Normal [facility] Project Engineering Director Authentication Interface Message Text Normal [facility] Care Plan Noteon 12-25-2020 Project Engineering Director Authentication Interface Message Text Normal [facility] GLUCOSE, FINGERSTICK-IN OFFI CE12-25-2020 Glucose [Mass/Vol] 209 mg/dL High 80-116 [facility] Comment on above: Performed By: #### 8 2948 ####NURSING GLUCOSE [id number] [facility] [place], [address] Glucose [Mass/Vol] 193 mg/dL High 80-116 [facility] Comment on above: Performed By: #### 8 2948 ####NURSING GLUCOSE [id number] [place], [address] Glucose [Mass/Vol] 150 mg/dL High 80-116 [facility] Comment on above: Performed By: #### 8 2948 ####NURSING GLUCOSE [id number] [place], [address] Glucose [Mass/Vol] 96 mg/dL Normal 80-116 [facility] Comment on above: Performed By: #### 8 2948 ####NURSING GLUCOSE [id number] [place], [address] Glucose [Mass/Vol] 142 mg/dL High 80-116 [facility] Comment on above: Performed By: #### 8 2948 ####NURSING GLUCOSE [id number] [place], [address] Progress Notes12-25-2020 Project Engineering Director Authentication Interface Message Text Normal [facility] Project Engineering Director Authentication Interface Message Text Normal [facility] Project Engineering Director Authentication Interface Message Text Normal [facility] Care Plan Noteon 12-24-2020 Project Engineering Director Authentication Interface Message Text Normal [facility] Consultson 12-24-2020 Project Engineering Director Authentication Interface Message Text Normal [facility] GLUCOSE, FINGERSTICK-IN OFFI CE12-24-2020 Glucose [Mass/Vol] 211 mg/dL High 80-116 [facility] Comment on above: Performed By: #### 8 2948 ####NURSING GLUCOSE [id number] [place], [address] Glucose [Mass/Vol] 206 mg/dL High 80-116 [facility] Comment on above: Performed By: #### 8 2948 ####NURSING GLUCOSE [id number] [place], [address] Glucose [Mass/Vol] 102 mg/dL Normal 80-116 [facility] Comment on above: Performed By: #### 8 2948 ####NURSING GLUCOSE [id number] [place], [address] Glucose [Mass/Vol] 66 mg/dL Low 80-116 [facility] Comment on above: Performed By: #### 8 2948 ####NURSING GLUCOSE [id number] [place], [address] Glucose [Mass/Vol] 159 mg/dL High 80-116 [facility] Comment on above: Performed By: #### 8 2948 ####NURSING GLUCOSE [id number] [place], [address] Progress Noteson 12-24-2020 Project Engineering Director Authentication Interface Message Text Normal [facility] Project Engineering Director Authentication Interface Message Text Normal [facility] BASIC METABOLIC PANELon 07-0 Anion gap [Moles/Vol] 11 mmol/L Normal 5-13 [facility] Comment on above: Performed By: #### Sofia Shah, MG ####[facility] [id number] [place] [address], Calcium [Mass/Vol] 7.2 mg/dL Low 8.4-10.4 [facility] Comment on above: Performed By: #### Sofia Shah, MG ####[facility] [id number] [place], Chloride [Moles/Vol] 100 mmol/L Normal 97-111 [facility] Comment on above: Performed By: #### Sofia Shah, MG ####[facility] [id number] [place], CO2 [Moles/Vol] 29 mmol/L Normal 21-30 [facility] Comment on above: Performed By: #### Sofia Shah, MG ####[facility] [id number] [place], Creatinine [Mass/Vol] 0.71 mg/dL Low 0.80-1.30 [facility] Comment on above: Performed By: #### Sofia Shah, MG ####S PATHOLOGY [id number] [place], ESTIMATED GFR (CKD-EPI) 99 mL/min/1.73sqm Normal >=60 [facility] Comment on above: Performed By: #### Sofia Shah, MG ####S PATHOLOGY [id number] [place], Glucose [Mass/Vol] 177 mg/dL High 80-116 [facility] Comment on above: Performed By: #### Sofia Shah, MG ####S PATHOLOGY [id number] [place], Potassium [Moles/Vol] 4.3 mmol/L Normal 3.3-5.3 [facility] Comment on above: Performed By: ###Libra Shah, MG ####S PATHOLOGY [id number] [place] [address], Sodium [Moles/Vol] 136 mmol/L Normal 135-148 [facility] Comment on above: Performed By: ###Libra Shah, MG ####S PATHOLOGY [id number] [place] [address], Urea nitrogen [Mass/Vol] 13 mg/dL Normal 8-22 [facility] Comment on above: Performed By: ###Libra Shah, MG ####S PATHOLOGY [id number] [place], COMPLETE BLOOD COUNTon 12-23 Erythrocyte distribution width (RBC) [Ratio] 15.7 % High 11.5-14.5 [facility] Comment on above: Performed By: #### Sofia RESENDIZ ####S PATHOLOGY [id number] [place], Hematocrit (Bld) [Volume fraction] 21.6 % Low 41.0-53.0 [facility] Comment on above: Performed By: #### Sofia RESENDIZ ####[facility] [id number] [place] [address], Hemoglobin (Bld) [Mass/Vol] 7.2 g/dL Low 13.9-16.3 [facility] Comment on above: Performed By: #### C BC ####[facility] PATHOLOGY [id number] [place], MCH (RBC) [Entitic mass] 29.8 pg Normal 26.0-34.0 [facility] Comment on above: Performed By: #### C BC ####[facility] PATHOLOGY [id number] [place] [address], MCHC (RBC) [Mass/Vol] 33.1 g/dL Normal 32.0-35.9 [facility] Comment on above: Performed By: #### C BC ####[facility] PATHOLOGY [id number] [place] [address], MCV (RBC) [Entitic vol] 90 fL Normal 80-100 [facility] Comment on above: Performed By: #### C BC ####[facility] PATHOLOGY [id number] [place] [address], Platelet mean volume (Bld) [Entitic vol] 6.5 fL Low 7.5-11.2 [facility] Comment on above: Performed By: #### C BC ####[facility] PATHOLOGY [id number] [place] [address], Platelets (Bld) [#/Vol] 288 10*3/uL Normal 150-400 [facility] Comment on above: Performed By: #### C BC ####[facility] PATHOLOGY [id number] [place] [address], RBC (Bld) [#/Vol] 2.41 10*6/uL Low 4.50-5.90 [facility] Comment on above: Performed By: #### C BC ####[facility] PATHOLOGY [id number] [place] [address], WBC (Bld) [#/Vol] 6.8 10*3/uL Normal 4.5-11.5 [facility] Comment on above: Performed By: #### C BC ####[facility] PATHOLOGY [id number] [place], [address] Care Plan Noteon 12-23-2020 Project Engineering Director Authentication Interface Message Text Normal [facility] GLUCOSE, FINGERSTICK-IN OFFI CEon 12-23-2020 Glucose [Mass/Vol] 139 mg/dL High 80-116 [facility] Comment on above: Performed By: #### 8 2948 ####NURSING GLUCOSE [id number] [place], [address] Glucose [Mass/Vol] 112 mg/dL Normal 80-116 [facility] Comment on above: Performed By: #### 8 2948 ####NURSING GLUCOSE [id number] [place], [address] Glucose [Mass/Vol] 206 mg/dL High 80-116 [facility] Comment on above: Performed By: #### 8 2948 ####NURSING GLUCOSE [id number] [place], [address] Glucose [Mass/Vol] 115 mg/dL Normal 80-116 [facility] Comment on above: Performed By: #### 8 2948 ####NURSING GLUCOSE [id number] [place], [address] Glucose [Mass/Vol] 172 mg/dL High 80-116 [facility] Comment on above: Performed By: #### 8 2948 ####NURSING GLUCOSE [id number] [place], [address] HEMOGLOBIN A1Con 12-23-2020 Glucose [Mass/Vol] 143 mg/dL Normal [facility] Comment on above: Order Comment: HbA1c of 5.7-6.4% have increased risk for diabetes and CV(Source :ADA 2014 Standard of Medical Care in Diabetes) Performed By: #### H B A1C ####S [facility] [address] [place], [address] HbA1c (Bld) [Mass fraction] 6.6 % High 4.0-5.6 [facility] Comment on above: Order Comment: HbA1c of 5.7-6.4% have increased risk for diabetes and CV(Source :ADA 2014 Standard of Medical Care in Diabetes) Performed By: #### H B A1C ####[facility] [address] [place], [address] MAGNESIUMon 12-23-2020 Magnesium [Mass/Vol] 1.9 mg/dL Normal 1.6-2.8 [facility] Comment on above: Performed By: #### C H8, MG ####S PATHOLOGY [id number] [place], [place], Progress Noteson 12-23-2020 Project Engineering Director Authentication Interface Message Text Normal [facility] Project Engineering Director Authentication Interface Message Text Normal [facility] BASIC METABOLIC PANELon 07- Anion gap [Moles/Vol] 10 mmol/L Normal 5-13 [facility] Comment on above: Performed By: #### Roas Wells, CH8 ####S PATHOLOGY [id number] [place], [place], Calcium [Mass/Vol] 7.4 mg/dL Low 8.4-10.4 [facility] Comment on above: Performed By: #### Rosa Wells, CH8 ####S PATHOLOGY [id number] [place], Chloride [Moles/Vol] 101 mmol/L Normal 97-111 [facility] Comment on above: Performed By: #### Rosa Wells, CH8 ####S PATHOLOGY [id number] [place] [address], CO2 [Moles/Vol] 30 mmol/L Normal 21-30 [facility] Comment on above: Performed By: #### Rosa Wells, CH8 ####S PATHOLOGY [id number] [place], Creatinine [Mass/Vol] 0.62 mg/dL Low 0.80-1.30 [facility] Comment on above: Performed By: #### Rosa Wells, CH8 ####S PATHOLOGY [id number] [place], ESTIMATED GFR (CKD-EPI) 105 mL/min/1.73sqm Normal >=60 [facility] Comment on above: Performed By: #### Rosa Wells, CH8 ####S PATHOLOGY [id number] [place], Glucose [Mass/Vol] 91 mg/dL Normal 80-116 [facility] Comment on above: Performed By: #### Rosa Wells, CH8 ####[facility] PATHOLOGY [id number] [place], Potassium [Moles/Vol] 4.3 mmol/L Normal 3.3-5.3 [facility] Comment on above: Performed By: #### Rosa Wells, CH8 ####[facility] PATHOLOGY [id number] [place], Sodium [Moles/Vol] 137 mmol/L Normal 135-148 [facility] Comment on above: Performed By: #### Rosa Wells, CH8 ####[facility] PATHOLOGY [id number] [place], Urea nitrogen [Mass/Vol] 10 mg/dL Normal 8-22 [facility] Comment on above: Performed By: #### Rosa Wells, JASON8 ####[facility] PATHOLOGY [id number] [place], COMPLETE BLOOD COUNTon 12-22 Erythrocyte distribution width (RBC) [Ratio] 16.0 % High 11.5-14.5 [facility] Comment on above: Performed By: #### C BC ####[facility] PATHOLOGY [id number] [place] [address], Hematocrit (Bld) [Volume fraction] 22.8 % Low 41.0-53.0 [facility] Comment on above: Performed By: #### C BC ####[facility] PATHOLOGY [id number] [place] [address], Hemoglobin (Bld) [Mass/Vol] 7.4 g/dL Low 13.9-16.3 [facility] Comment on above: Performed By: #### C BC ####[facility] PATHOLOGY [id number] [place] [address], MCH (RBC) [Entitic mass] 29.1 pg Normal 26.0-34.0 [facility] Comment on above: Performed By: #### C BC ####[facility] PATHOLOGY [id number] [place] [address], MCHC (RBC) [Mass/Vol] 32.7 g/dL Normal 32.0-35.9 [facility] Comment on above: Performed By: #### C BC ####S PATHOLOGY [id number] [place], MCV (RBC) [Entitic vol] 89 fL Normal 80-100 [facility] Comment on above: Performed By: #### C BC ####S PATHOLOGY [id number] [place], Platelet mean volume (Bld) [Entitic vol] 6.5 fL Low 7.5-11.2 [facility] Comment on above: Performed By: #### C BC ####S PATHOLOGY [id number] [place], Platelets (Bld) [#/Vol] 306 10*3/uL Normal 150-400 [facility] Comment on above: Performed By: #### C BC ####S PATHOLOGY [id number] [place] [address], RBC (Bld) [#/Vol] 2.56 10*6/uL Low 4.50-5.90 [facility] Comment on above: Performed By: #### C BC ####[facility] PATHOLOGY [id number] [place], WBC (Bld) [#/Vol] 10.0 10*3/uL Normal 4.5-11.5 [facility] Comment on above: Performed By: #### C BC ####S PATHOLOGY [id number] [place], Care Plan Noteon 12-22-2020 Project Engineering Director Authentication Interface Message Text Normal [facility] Consultson 12-22-2020 Project Engineering Director Authentication Interface Message Text Normal [facility] Project Engineering Director Authentication Interface Message Text Normal [facility] Project Engineering Director Authentication Interface Message Text Normal [facility] GLUCOSE, FINGERSTICK-IN OFFI CEon 12-22-2020 Glucose [Mass/Vol] 110 mg/dL Normal 80-116 [facility] Comment on above: Performed By: #### 8 2948 ####NURSING GLUCOSE [id number] [place], [address] Glucose [Mass/Vol] 243 mg/dL High 80-116 [facility] Comment on above: Performed By: #### 8 2948 ####NURSING GLUCOSE [id number] [place], [address] Glucose [Mass/Vol] 120 mg/dL High 80-116 [facility] Comment on above: Performed By: #### 8 2948 ####NURSING GLUCOSE [id number] [place], [address] Glucose [Mass/Vol] 102 mg/dL Normal 80-116 [facility] Comment on above: Performed By: #### 8 2948 ####NURSING GLUCOSE [id number] [place], [address] MAGNESIUMon 12-22-2020 Magnesium [Mass/Vol] 1.8 mg/dL Normal 1.6-2.8 [facility] Comment on above: Performed By: #### Rosa Wells 8 ####[facility] PATH[facility] [id number] [place] [address], Progress Noteson 12-22-2020 Project Engineering Director Authentication Interface Message Text Normal [facility] Project Engineering Director Authentication Interface Message Text Normal [facility] Project Engineering Director Authentication Interface Message Text Normal [facility] XR CHEST AP OR PA 1 VIEWon 0 12-22-2020 XR CHEST AP OR PA 1 VIEW Normal [facility] XR CHEST AP OR PA 1 VIEW Normal [facility] BASIC METABOLIC PANELon 070 Anion gap [Moles/Vol] 12 mmol/L Normal 5-13 [facility] Comment on above: Performed By: #### Sofia H8, MG ####[facility] PATHOLOGY [id number] [place], Calcium [Mass/Vol] 7.4 mg/dL Low 8.4-10.4 [facility] Comment on above: Performed By: #### Sofia H8, MG ####[facility] PATHOLOGY [id number] [place], Chloride [Moles/Vol] 99 mmol/L Normal 97-111 [facility] Comment on above: Performed By: #### Sofia H8, MG ####[facility] PATHOLOGY [id number] [place], CO2 [Moles/Vol] 27 mmol/L Normal 21-30 [facility] Comment on above: Performed By: #### Sofia H8, MG ####[facility] PATHOLOGY [id number] [place], Creatinine [Mass/Vol] 0.63 mg/dL Low 0.80-1.30 [facility] Comment on above: Performed By: #### Sofia H8, MG ####[facility] PATHOLOGY [id number] [place], ESTIMATED GFR (CKD-EPI) 104 mL/min/1.73sqm Normal >=60 [facility] Comment on above: Performed By: #### Sofia H8, MG ####[facility] PATHOLOGY [id number] [place], Glucose [Mass/Vol] 228 mg/dL High 80-116 [facility] Comment on above: Performed By: #### Sofia H8, MG ####S PATHOLOGY [id number] [place], Potassium [Moles/Vol] 4.9 mmol/L Normal 3.3-5.3 [facility] Comment on above: Performed By: #### Sofia H8, MG ####[facility] PATHOLOGY [id number] [place], Sodium [Moles/Vol] 133 mmol/L Low 135-148 [facility] Comment on above: Performed By: #### Sofia H8, MG ####[facility] PATHOLOGY [id number] [place], Urea nitrogen [Mass/Vol] 8 mg/dL Normal 8-22 [facility] Comment on above: Performed By: #### Sofia H8, MG ####[facility] PATHOLOGY [id number] [place], COMPLETE BLOOD COUNTon 12-21 Erythrocyte distribution width (RBC) [Ratio] 15.8 % High 11.5-14.5 [facility] Comment on above: Performed By: #### Sofia BC ####[facility] PATHOLOGY [id number] [place], Hematocrit (Bld) [Volume fraction] 24.6 % Low 41.0-53.0 [facility] Comment on above: Performed By: #### C BC ####[facility] PATHOLOGY [id number] [place], Hemoglobin (Bld) [Mass/Vol] 8.3 g/dL Low 13.9-16.3 [facility] Comment on above: Performed By: #### C BC ####[facility] PATHOLOGY [id number] [place], MCH (RBC) [Entitic mass] 30.6 pg Normal 26.0-34.0 [facility] Comment on above: Performed By: #### C BC ####[facility] PATHOLOGY [id number] [place], MCHC (RBC) [Mass/Vol] 33.6 g/dL Normal 32.0-35.9 [facility] Comment on above: Performed By: #### C BC ####[facility] PATHOLOGY [id number] [place], MCV (RBC) [Entitic vol] 91 fL Normal 80-100 [facility] Comment on above: Performed By: #### C BC ####[facility] PATHOLOGY [id number] [place], Platelet mean volume (Bld) [Entitic vol] 6.6 fL Low 7.5-11.2 [facility] Comment on above: Performed By: #### C BC ####[facility] PATHOLOGY [id number] [place], Platelets (Bld) [#/Vol] 361 10*3/uL Normal 150-400 [facility] Comment on above: Performed By: #### C BC ####[facility] PATHOLOGY [id number] [place], RBC (Bld) [#/Vol] 2.70 10*6/uL Low 4.50-5.90 [facility] Comment on above: Performed By: #### C BC ####[facility] PATH[facility] [id number] [place], WBC (Bld) [#/Vol] 10.1 10*3/uL Normal 4.5-11.5 [facility] Comment on above: Performed By: #### C BC ####[facility] PATHOLOGY [id number] [place], [place], Consultson 12-21-2020 Project Engineering Director Authentication Interface Message Text Normal [facility] Project Engineering Director Authentication Interface Message Text Normal [facility] Project Engineering Director Authentication Interface Message Text Normal [facility] GLUCOSE, FINGERSTICK-IN OFFI CEon 12-21-2020 Glucose [Mass/Vol] 165 mg/dL High 80-116 [facility] Comment on above: Performed By: #### 8 2948 ####NURSING GLUCOSE [id number] [place], [address] Glucose [Mass/Vol] 270 mg/dL High 80-116 [facility] Comment on above: Performed By: #### 8 2948 ####NURSING GLUCOSE [id number] [place], [address] Glucose [Mass/Vol] 158 mg/dL High 80-116 [facility] Comment on above: Performed By: #### 8 2948 ####NURSING GLUCOSE [id number] [place], [address] Glucose [Mass/Vol] 175 mg/dL High 80-116 [facility] Comment on above: Performed By: #### 8 2948 ####NURSING GLUCOSE [id number] [place], [address] Glucose [Mass/Vol] 283 mg/dL High 80-116 [facility] Comment on above: Result Comment: Javier childress RN, APN, MD Performed By: #### 8 2948 ####NURSING GLUCOSE [id number] [place], [address] HOSPon 12-21-2020 HOSP Patient:Uma Barker N MRN: No data within the last 30 days. Normal [facility] MAGNESIUMon 12-21-2020 Magnesium [Mass/Vol] 1.6 mg/dL Normal 1.6-2.8 [facility] Comment on above: Performed By: #### C H8, MG ####[facility] PATHOLOGY [id number] [place], [place], Progress Noteson 12-21-2020 Project Engineering Director Authentication Interface Message Text Normal [facility] Project Engineering Director Authentication Interface Message Text Normal [facility] XR CHEST AP OR PA 1 VIEWon 0 12-21-2020 XR CHEST AP OR PA 1 VIEW Normal [facility] AFB CULTURE/SMEARon 12-21-19 21 AFB CULTURE/SMEAR C AFB: No Growth AFB STAIN: No Acid Fast Bacilli Seen Normal [facility] Comment on above: Performed By: #### C AFB ####[facility] Nnbqaykev7761 [place], [place] ANAEROBIC CULTURE, MISCon ANAEROBIC CULTURE, MISC C ANRBC: No Anaerobes isolated Normal [facility] Comment on above: Performed By: #### C ANRBC ####[facility] Ufvnunubr8125 [place], [place] ANAEROBIC CULTURE, MISC C ANRBC: No Anaerobes isolated Normal [facility] Comment on above: Performed By: #### C ANRBC ####[facility] Frzjgrwga4384 [place], [place] Anesthesia Attestationon Project Engineering Director Authentication Interface Message Text Normal [facility] Anesthesia Postprocedure Lizbeth luationon 12-20-2020 Project Engineering Director Authentication Interface Message Text Normal [facility] Anesthesia Preprocedure Eval uationon 12-20-2020 Project Engineering Director Authentication Interface Message Text Normal [facility] Anesthesia Transfer Of Careo n 12-20-2020 Project Engineering Director Authentication Interface Message Text Normal [facility] BASIC METABOLIC PANELon 11-23 Anion gap [Moles/Vol] 12 mmol/L Normal 5-13 [facility] Comment on above: Performed By: #### C H8, MG ####[facility] PATH[facility] [id number] [place], Calcium [Mass/Vol] 7.4 mg/dL Low 8.4-10.4 [facility] Comment on above: Performed By: #### C H8, MG ####[facility] PATHOLOGY [id number] [place], Chloride [Moles/Vol] 100 mmol/L Normal 97-111 [facility] Comment on above: Performed By: #### Sofia H8, MG ####[facility] PATHOLOGY [id number] [place], CO2 [Moles/Vol] 29 mmol/L Normal 21-30 [facility] Comment on above: Performed By: #### Sofia H8, MG ####[facility] PATHOLOGY [id number] [place], Creatinine [Mass/Vol] 0.70 mg/dL Low 0.80-1.30 [facility] Comment on above: Performed By: #### Sofia H8, MG ####[facility] PATHOLOGY [id number] [place], ESTIMATED GFR (CKD-EPI) 100 mL/min/1.73sqm Normal >=60 [facility] Comment on above: Performed By: #### Sofia H8, MG ####S PATHOLOGY [id number] [place], Glucose [Mass/Vol] 192 mg/dL High 80-116 [facility] Comment on above: Performed By: #### Sofia H8, MG ####[facility] PATHOLOGY [id number] [place], Potassium [Moles/Vol] 4.5 mmol/L Normal 3.3-5.3 [facility] Comment on above: Performed By: #### Sofia H8, MG ####[facility] PATHOLOGY [id number] [place], Sodium [Moles/Vol] 136 mmol/L Normal 135-148 [facility] Comment on above: Performed By: #### C H8, MG ####[facility] PATHOLOGY [id number] [place], Urea nitrogen [Mass/Vol] 8 mg/dL Normal 8-22 [facility] Comment on above: Performed By: #### Sofia H8, MG ####[facility] PATHOLOGY [id number] [place], [place], BLOOD GAS, ARTERIALon 2020 CR % O2 SAT > 99.4 Normal >=95.1 [facility] Comment on above: Performed By: #### C R LYTES, CR GLU, CR BGA, LACT, CR ICA, CR COOX ####[facility] PATHOLOGY [id number] [place] [address], CR LESA 3.3 mmol/L High -2.0-2.0 [facility] Comment on above: Performed By: #### C R LYTES, CR GLU, CR BGA, LACT, CR ICA, CR COOX ####[facility] PATHOLOGY [id number] [place] [address], CR PCO2 44.3 mm Hg Normal 35.0-45.0 [facility] Comment on above: Performed By: #### C R LYTES, CR GLU, CR BGA, LACT, CR ICA, CR COOX ####[facility] PATHOLOGY [id number] [place] [address], CR PHA 7.412 Normal 7.35-7.45 [facility] Comment on above: Performed By: #### C R LYTES, CR GLU, CR BGA, LACT, CR ICA, CR COOX ####[facility] PATHOLOGY [id number] [place] [address], CR PO2 298 mm Hg High 80-100 mm Hg [facility] Comment on above: Performed By: #### C R LYTES, CR GLU, CR BGA, LACT, CR ICA, CR COOX ####[facility] PATHOLOGY [id number] [place] [address], HCO3 (Bld) [Moles/Vol] 28 mmol/L Normal 22-28 [facility] Comment on above: Performed By: #### C R LYTES, CR GLU, CR BGA, LACT, CR ICA, CR COOX ####[facility] PATHOLOGY [id number] [place] [address], Blood Attestationon 12-21-19 21 Project Engineering Director Authentication Interface Message Text Normal [facility] Brief Operative Noteon 12-20 Project Engineering Director Authentication Interface Message Text Normal [facility] CALCIUM, IONIZEDon CR ICA 1.11 mmol/L Normal 1.10-1.40 [facility] Comment on above: Performed By: #### C R LYTES, CR GLU, CR BGA, LACT, CR ICA, CR COOX ####[facility] PATHOLOGY [id number] [place] [address], CO-OXIMETERon 12-20-2020 CARBOXYHEMOGLOBIN 2.1 % Normal <3.0 [facility] Comment on above: Performed By: #### C R LYTES, CR GLU, CR BGA, LACT, CR ICA, CR COOX ####[facility] PATHOLOGY [id number] [place] [address], CR HBMET 0.9 % Normal <3.0 [facility] Comment on above: Performed By: #### C R LYTES, CR GLU, CR BGA, LACT, CR ICA, CR COOX ####[facility] PATHOLOGY [id number] [place] [address], Hematocrit (Bld) [Volume fraction] 25.5 % Low 42.0-52.0 [facility] Comment on above: Performed By: #### C R LYTES, CR GLU, CR BGA, LACT, CR ICA, CR COOX ####[facility] PATHOLOGY [id number] [place] [address], Hemoglobin (Bld) [Mass/Vol] 8.2 g/dL Low 14.0-18.0 [facility] Comment on above: Performed By: #### C R LYTES, CR GLU, CR BGA, LACT, CR ICA, CR COOX ####[facility] PATHOLOGY [id number] [place] [address], OXYHEMOGLOBIN 97.3 % Normal 95.0-100.0 [facility] Comment on above: Performed By: #### C R LYTES, CR GLU, CR BGA, LACT, CR ICA, CR COOX ####[facility] PATHOLOGY [id number] [place] [address], COMPLETE BLOOD COUNTon 12-20 Erythrocyte distribution width (RBC) [Ratio] 15.4 % High 11.5-14.5 [facility] Comment on above: Performed By: #### C BC ####[facility] PATHOLOGY [id number] [place], Hematocrit (Bld) [Volume fraction] 26.1 % Low 41.0-53.0 [facility] Comment on above: Performed By: #### C BC ####[facility] PATHOLOGY [id number] [place] [address], Hemoglobin (Bld) [Mass/Vol] 8.5 g/dL Low 13.9-16.3 [facility] Comment on above: Performed By: #### C BC ####[facility] PATHOLOGY [id number] [place] [address], MCH (RBC) [Entitic mass] 29.6 pg Normal 26.0-34.0 [facility] Comment on above: Performed By: #### C BC ####[facility] PATHOLOGY [id number] [place] [address], MCHC (RBC) [Mass/Vol] 32.6 g/dL Normal 32.0-35.9 [facility] Comment on above: Performed By: #### C BC ####[facility] PATHOLOGY [id number] [place] [address], MCV (RBC) [Entitic vol] 91 fL Normal 80-100 [facility] Comment on above: Performed By: #### C BC ####[facility] PATHOLOGY [id number] [place] [address], Platelet mean volume (Bld) [Entitic vol] 6.8 fL Low 7.5-11.2 [facility] Comment on above: Performed By: #### C BC ####[facility] PATHOLOGY [id number] [place] [address], Platelets (Bld) [#/Vol] 405 10*3/uL High 150-400 [facility] Comment on above: Performed By: #### C BC ####[facility] PATHOLOGY [id number] [place] [address] [place], RBC (Bld) [#/Vol] 2.88 10*6/uL Low 4.50-5.90 [facility] Comment on above: Performed By: #### C BC ####[facility] PATHOLOGY [id number] [place], WBC (Bld) [#/Vol] 6.2 10*3/uL Normal 4.5-11.5 [facility] Comment on above: Performed By: #### C BC ####[facility] PATHOLOGY [id number] [place] [address], Care Plan Noteon 12-20-2020 Project Engineering Director Authentication Interface Message Text Normal [facility] Consultson 12-20-2020 Project Engineering Director Authentication Interface Message Text Physical Therapy: Pt in [place] for VATS. Will continue to follow per POC. Maria Luisa Henning HOSPITAL ACCOUNT MANAGER Beeper #[phone] Normal [facility] ELECTROLYTESon 12-20-2020 Chloride [Moles/Vol] 104 mmol/L Normal 97-111 [facility] Comment on above: Performed By: #### C R LYTES, CR GLU, CR BGA, LACT, CR ICA, CR COOX ####[facility] PATHOLOGY [id number] [place] [address], Potassium [Moles/Vol] 4.1 mmol/L Normal 3.3-5.3 [facility] Comment on above: Performed By: #### C R LYTES, CR GLU, CR BGA, LACT, CR ICA, CR COOX ####[facility] PATHOLOGY [id number] [place], [place], Sodium [Moles/Vol] 136 mmol/L Normal 135-148 [facility] Comment on above: Performed By: #### C R LYTES, CR GLU, CR BGA, LACT, CR ICA, CR COOX ####[facility] PATHOLOGY [id number] [place], GLUCOSE, FINGERSTICK-IN OFFI CEon 12-20-2020 Glucose [Mass/Vol] 146 mg/dL High 80-116 [facility] Comment on above: Performed By: #### 8 2948 ####NURSING GLUCOSE [id number] [place], [address] Glucose [Mass/Vol] 147 mg/dL High 80-116 [facility] Comment on above: Performed By: #### 8 2948 ####NURSING GLUCOSE [id number] [place], [address] GLUCOSE, WHOLE BLOODon 12-20 CR GLU 132 mg/dL High 68-98 [facility] Comment on above: Performed By: #### C R LYTES, CR GLU, CR BGA, LACT, CR ICA, CR COOX ####[facility] [id number] [place], [place], H AND Glenn 12-20-2020 Project Engineering Director Authentication Interface Message Text Normal [facility] LACTIC ACIDon 12-20-2020 CR LACT 1.2 mmol/L Normal 0.5-2.0 [facility] Comment on above: Performed By: #### C R MARYAM, CR GLU, CR BGA, LACT, CR ICA, CR COOX ####S PATHOLOGY [id number] [place], MAGNESIUMon 12-20-2020 Magnesium [Mass/Vol] 1.9 mg/dL Normal 1.6-2.8 [facility] Comment on above: Performed By: #### C H8, MG ####[facility] [id number] [place], [place], [place] Surgeonon 12-20-2020 Project Engineering Director Authentication Interface Message Text Normal [facility] Progress Noteson 12-20-2020 Project Engineering Director Authentication Interface Message Text 1529: Assessment completed with assistance of certified court interpreter [id number]. 1620: Pt to go to the regular nursing floor per Dr. Pacheco. Normal [facility] Project Engineering Director Authentication Interface Message Text Normal [facility] RED BLOOD CELL COMPONENTon 0 12-20-2020 BB ORDER ITEM Product status info to follow Normal [facility] Comment on above: Performed By: #### R EVELYN ####[facility] [id number] [place], RED BLOOD CELL UNIT STATUSon 12-20-2020 BLOOD PRODUCT CODE [id number] Normal [facility] Comment on above: Performed By: #### R MANDA ####S PATHOLOGY [id number] [place], BLOOD PRODUCT CODE [id number] Normal [facility] Comment on above: Performed By: #### R BU ####S PATHOLOGY [id number] [place], BLOOD PRODUCT DESCRIPTION Red Blood Cells Normal [facility] Comment on above: Performed By: #### R MANDA ####S PATHOLOGY [id number] [place], BLOOD PRODUCT STATUS Released to avail Normal [facility] Comment on above: Performed By: #### R MANDA ####S PATHOLOGY [id number] [place], BLOOD PRODUCT UNIT INFO [id number] Normal [facility] Comment on above: Performed By: #### R MANDA ####S PATHOLOGY [id number] [place], BLOOD PRODUCT UNIT INFO [id number] Normal [facility] Comment on above: Performed By: #### R MANDA ####S PATHOLOGY [id number] [place], BLOOD PRODUCT UNIT INFO [id number] Normal [facility] Comment on above: Performed By: #### R MANDA ####S PATHOLOGY [id number] [place], BLOOD PRODUCT UNIT INFO [id number] Normal [facility] Comment on above: Performed By: #### R BU ####S PATHOLOGY [id number] [place], BLOOD PRODUCT UNIT TYPE 5100 Normal [facility] Comment on above: Result Comment: O Po s Performed By: #### R BU ####[facility] PATH[facility] [id number] [place], CROSSMATCH INTERPRETATION Compatible (E) Normal [facility] Comment on above: Performed By: #### Cheyenne HOLMAN ####S PATHOLOGY [id number] [place], TISSUE CULTURE, AEROBICon 06 -30-2021 TISSUE CULTURE, AEROBIC C TISS: No Growth GRAM STAIN: 4+ Polymorphonuclear Leukocytes No Squamous Epithelial Cells seen No organisms seen Normal [facility] Comment on above: Performed By: #### C TISS ####[facility] Qfssikazj2321 [place], [place] TISSUE CULTURE, AEROBIC C TISS: No Growth GRAM STAIN: 2+ Polymorphonuclear Leukocytes No Squamous Epithelial Cells seen No organisms seen Normal [facility] Comment on above: Performed By: #### C TISS ####[facility] Kpwqwtrsr7060 [place], [place] XR CHEST AP OR PA 1 VIEWon 0 12-20-2020 XR CHEST AP OR PA 1 VIEW Normal [facility] Anesthesia Preprocedure Eval uationon 12-19-2020 Project Engineering Director Authentication Interface Message Text Normal [facility] BASIC METABOLIC PANELon - Anion gap [Moles/Vol] 13 mmol/L Normal 5-13 [facility] Comment on above: Performed By: #### Rosa Wells CH8 ####[facility] PATHOLOGY [id number] [place] [address], Calcium [Mass/Vol] 7.4 mg/dL Low 8.4-10.4 [facility] Comment on above: Performed By: #### Rosa Wells CH8 ####[facility] PATHOLOGY [id number] [place] [address], Chloride [Moles/Vol] 99 mmol/L Normal 97-111 [facility] Comment on above: Performed By: #### Rosa Wells CH8 ####S PATHOLOGY [id number] [place], CO2 [Moles/Vol] 29 mmol/L Normal 21-30 [facility] Comment on above: Performed By: #### Rosa Wells, JASON8 ####S PATHOLOGY [id number] [place], Creatinine [Mass/Vol] 0.77 mg/dL Low 0.80-1.30 [facility] Comment on above: Performed By: #### Rosa Wells, JASON8 ####S PATHOLOGY [id number] [place], ESTIMATED GFR (CKD-EPI) 96 mL/min/1.73sqm Normal >=60 [facility] Comment on above: Performed By: #### Rosa Wells, JASON8 ####S PATHOLOGY [id number] [place], Glucose [Mass/Vol] 105 mg/dL Normal 80-116 [facility] Comment on above: Performed By: #### Rosa Wells, JASON8 ####S PATHOLOGY [id number] [place], Potassium [Moles/Vol] 4.1 mmol/L Normal 3.3-5.3 [facility] Comment on above: Performed By: #### Rosa Wells, JASON8 ####S PATHOLOGY [id number] [place], Sodium [Moles/Vol] 137 mmol/L Normal 135-148 [facility] Comment on above: Performed By: #### Rosa Wells, JASON8 ####S PATHOLOGY [id number] [place], Urea nitrogen [Mass/Vol] 9 mg/dL Normal 8-22 [facility] Comment on above: Performed By: #### Rosa Wells, JASON8 ####[facility] PATHOLOGY [id number] [place], COMPLETE BLOOD COUNTon 12-19 Erythrocyte distribution width (RBC) [Ratio] 15.4 % High 11.5-14.5 [facility] Comment on above: Performed By: #### C BC ####S PATHOLOGY [id number] [place], Hematocrit (Bld) [Volume fraction] 25.3 % Low 41.0-53.0 [facility] Comment on above: Performed By: #### C BC ####S PATHOLOGY [id number] [place], Hemoglobin (Bld) [Mass/Vol] 8.3 g/dL Low 13.9-16.3 [facility] Comment on above: Performed By: #### C BC ####[facility] PATH[facility] [id number] [place], MCH (RBC) [Entitic mass] 29.2 pg Normal 26.0-34.0 [facility] Comment on above: Performed By: #### C BC ####[facility] PATHOLOGY [id number] [place], MCHC (RBC) [Mass/Vol] 32.8 g/dL Normal 32.0-35.9 [facility] Comment on above: Performed By: #### C BC ####[facility] PATHOLOGY [id number] [place], MCV (RBC) [Entitic vol] 89 fL Normal 80-100 [facility] Comment on above: Performed By: #### C BC ####[facility] PATHOLOGY [id number] [place], Platelet mean volume (Bld) [Entitic vol] 6.5 fL Low 7.5-11.2 [facility] Comment on above: Performed By: #### C BC ####[facility] PATHOLOGY [id number] [place], Platelets (Bld) [#/Vol] 389 10*3/uL Normal 150-400 [facility] Comment on above: Performed By: #### C BC ####[facility] PATHOLOGY [id number] [place], RBC (Bld) [#/Vol] 2.84 10*6/uL Low 4.50-5.90 [facility] Comment on above: Performed By: #### C BC ####[facility] PATHOLOGY [id number] [place], WBC (Bld) [#/Vol] 5.5 10*3/uL Normal 4.5-11.5 [facility] Comment on above: Performed By: #### C BC ####[facility] PATHOLOGY [id number] [place], Care Plan Noteon 12-19-2020 Project Engineering Director Authentication Interface Message Text Normal [facility] Consultson 12-19-2020 Project Engineering Director Authentication Interface Message Text Normal [facility] GLUCOSE, FINGERSTICK-IN OFFI CEon 12-19-2020 Glucose [Mass/Vol] 212 mg/dL High 80-116 [facility] Comment on above: Result Comment: Javier childress RN, APN, MD Performed By: #### 8 2948 ####NURSING GLUCOSE [id number] [place], [address] Glucose [Mass/Vol] 165 mg/dL High 80-116 [facility] Comment on above: Result Comment: Javier childress RN, APN, MD Performed By: #### 8 2948 ####NURSING GLUCOSE [id number] [place], [address] Glucose [Mass/Vol] 110 mg/dL Normal 80-116 [facility] Comment on above: Performed By: #### 8 2948 ####NURSING GLUCOSE [id number] [place], [address] Glucose [Mass/Vol] 109 mg/dL Normal 80-116 [facility] Comment on above: Performed By: #### 8 2948 ####NURSING GLUCOSE [id number] [place], [address] MAGNESIUMon 12-19-2020 Magnesium [Mass/Vol] 2.0 mg/dL Normal 1.6-2.8 [facility] Comment on above: Performed By: #### M Russell CH8 ####[facility] PATH[facility] [id number] [place], [place], Progress Noteson 12-19-2020 Project Engineering Director Authentication Interface Message Text Trauma Team, please notify SW when pt is nearing DC. Pt will require a precert. [facility] is following and provided an update. Isabel Morrison, [facility], [employer] [phone] Normal [facility] Project Engineering Director Authentication Interface Message Text Normal [facility] Project Engineering Director Authentication Interface Message Text Normal [facility] TYPE AND SCREENon 12-19-2020 ABO and Rh group Nom (Bld) Blood group O Rh(D) positive Normal [facility] Comment on above: Performed By: #### T S ####[facility] PATHOLOGY [id number] [place], ABSC INT Negative Normal [facility] Comment on above: Performed By: #### T S ####[facility] PATHOLOGY [id number] [place], BASIC METABOLIC PANELon 11-22 Anion gap [Moles/Vol] 13 mmol/L Normal 5-13 [facility] Comment on above: Performed By: #### Rosa Wells, CH8 ####S PATHOLOGY [id number] [place], Calcium [Mass/Vol] 7.2 mg/dL Low 8.4-10.4 [facility] Comment on above: Performed By: #### Rosa Wells, CH8 ####S PATHOLOGY [id number] [place], Chloride [Moles/Vol] 99 mmol/L Normal 97-111 [facility] Comment on above: Performed By: #### Rosa Wells, CH8 ####S PATHOLOGY [id number] [place], CO2 [Moles/Vol] 27 mmol/L Normal 21-30 [facility] Comment on above: Performed By: #### Rosa Wells, CH8 ####S PATHOLOGY [id number] [place], Creatinine [Mass/Vol] 0.78 mg/dL Low 0.80-1.30 [facility] Comment on above: Performed By: #### Rosa Wells, CH8 ####S PATHOLOGY [id number] [place], ESTIMATED GFR (CKD-EPI) 95 mL/min/1.73sqm Normal >=60 [facility] Comment on above: Performed By: #### Rosa Wells, CH8 ####S PATHOLOGY [id number] [place], Glucose [Mass/Vol] 120 mg/dL High 80-116 [facility] Comment on above: Performed By: #### Rosa Wells, CH8 ####[facility] PATH[facility]Y [id number] [place], Potassium [Moles/Vol] 4.1 mmol/L Normal 3.3-5.3 [facility] Comment on above: Performed By: #### M Russell, CH8 ####[facility] PATHOLOGY [id number] [place], Sodium [Moles/Vol] 135 mmol/L Normal 135-148 [facility] Comment on above: Performed By: #### M Russell, CH8 ####S PATHOLOGY [id number] [place], Urea nitrogen [Mass/Vol] 8 mg/dL Normal 8-22 [facility] Comment on above: Performed By: #### Rosa Wells, CH8 ####[facility] PATHOLOGY [id number] [place], COMPLETE BLOOD COUNTon 12-18 Erythrocyte distribution width (RBC) [Ratio] 15.2 % High 11.5-14.5 [facility] Comment on above: Performed By: #### C BC ####[facility] PATHOLOGY [id number] [place], Hematocrit (Bld) [Volume fraction] 23.8 % Low 41.0-53.0 [facility] Comment on above: Performed By: #### C BC ####[facility] PATHOLOGY [id number] [place], Hemoglobin (Bld) [Mass/Vol] 8.0 g/dL Low 13.9-16.3 [facility] Comment on above: Performed By: #### C BC ####[facility] PATHOLOGY [id number] [place], MCH (RBC) [Entitic mass] 29.9 pg Normal 26.0-34.0 [facility] Comment on above: Performed By: #### C BC ####[facility] PATHOLOGY [id number] [place], MCHC (RBC) [Mass/Vol] 33.7 g/dL Normal 32.0-35.9 [facility] Comment on above: Performed By: #### C BC ####[facility] PATHOLOGY [id number] [place], MCV (RBC) [Entitic vol] 89 fL Normal 80-100 [facility] Comment on above: Performed By: #### C BC ####[facility] PATHOLOGY [id number] [place], Platelet mean volume (Bld) [Entitic vol] 6.3 fL Low 7.5-11.2 [facility] Comment on above: Performed By: #### C BC ####[facility] PATHOLOGY [id number] [place], Platelets (Bld) [#/Vol] 374 10*3/uL Normal 150-400 [facility] Comment on above: Performed By: #### C BC ####[facility] PATHOLOGY [id number] [place], RBC (Bld) [#/Vol] 2.68 10*6/uL Low 4.50-5.90 [facility] Comment on above: Performed By: #### C BC ####[facility] PATHOLOGY [id number] [place], WBC (Bld) [#/Vol] 8.4 10*3/uL Normal 4.5-11.5 [facility] Comment on above: Performed By: #### C BC ####[facility] PATHOLOGY [id number] [place], [place], CT CHEST W/O CONTRASTon 11-22 CT CHEST W/O CONTRAST 12.34 (mGy) IEC Body Dosimetry Phantom 423.87 (mGycm) [employer] 610 Chest,Chest,Chest I1 Normal [facility] Care Plan Noteon 12-18-2020 Project Engineering Director Authentication Interface Message Text Normal [facility] Consultson 12-18-2020 Project Engineering Director Authentication Interface Message Text Normal [facility] GLUCOSE, FINGERSTICK-IN OFFI CEon 12-18-2020 Glucose [Mass/Vol] 211 mg/dL High 80-116 [facility] Comment on above: Performed By: #### 8 6288 ####NURSING GLUCOSE [id number] [place], Glucose [Mass/Vol] 252 mg/dL High 80-116 [facility] Comment on above: Performed By: #### 8 9777 ####NURSING GLUCOSE [id number] [place], [address] Glucose [Mass/Vol] 220 mg/dL High 80-116 [facility] Comment on above: Performed By: #### 8 2948 ####NURSING GLUCOSE [id number] [place], [address] Glucose [Mass/Vol] 79 mg/dL Low 80-116 [facility] Comment on above: Performed By: #### 8 2948 ####NURSING GLUCOSE [id number] [place], [address] MAGNESIUMon 12-18-2020 Magnesium [Mass/Vol] 1.8 mg/dL Normal 1.6-2.8 [facility] Comment on above: Performed By: #### Rosa Wells 8 ####[facility] PATHOLOGY [id number] [place], Progress Noteson 12-18-2020 Project Engineering Director Authentication Interface Message Text Normal [facility] Project Engineering Director Authentication Interface Message Text Normal [facility] Project Engineering Director Authentication Interface Message Text Normal [facility] XR CHEST AP OR PA 1 VIEWon 0 12-18-2020 XR CHEST AP OR PA 1 VIEW Normal [facility] BASIC METABOLIC PANELon 06-2 Anion gap [Moles/Vol] 14 mmol/L High 5-13 [facility] Comment on above: Performed By: #### Sofia Apodaca8, MG ####[facility] PATHOLOGY [id number] [place], Calcium [Mass/Vol] 7.3 mg/dL Low 8.4-10.4 [facility] Comment on above: Performed By: #### Sofia Apodaca8, MG ####[facility] PATHOLOGY [id number] [place], Chloride [Moles/Vol] 98 mmol/L Normal 97-111 [facility] Comment on above: Performed By: #### Sofia Apodaca8, MG ####[facility] PATHOLOGY [id number] [place], CO2 [Moles/Vol] 26 mmol/L Normal 21-30 [facility] Comment on above: Performed By: #### C H8, MG ####[facility] PATHOLOGY [id number] [place], Creatinine [Mass/Vol] 0.80 mg/dL Normal 0.80-1.30 [facility] Comment on above: Performed By: #### Sofia H8, MG ####[facility] PATHOLOGY [id number] [place], ESTIMATED GFR (CKD-EPI) 94 mL/min/1.73sqm Normal >=60 [facility] Comment on above: Performed By: #### Sofia H8, MG ####S PATHOLOGY [id number] [place], Glucose [Mass/Vol] 160 mg/dL High 80-116 [facility] Comment on above: Performed By: #### Sofia H8, MG ####S PATHOLOGY [id number] [place], Potassium [Moles/Vol] 4.1 mmol/L Normal 3.3-5.3 [facility] Comment on above: Performed By: #### Sofia H8, MG ####S PATHOLOGY [id number] [place], Sodium [Moles/Vol] 134 mmol/L Low 135-148 [facility] Comment on above: Performed By: #### Sofia H8, MG ####S PATHOLOGY [id number] [place], Urea nitrogen [Mass/Vol] 10 mg/dL Normal 8-22 [facility] Comment on above: Performed By: #### Sofia H8, MG ####S PATHOLOGY [id number] [place], COMPLETE BLOOD COUNTon 12-17 Erythrocyte distribution width (RBC) [Ratio] 15.4 % High 11.5-14.5 [facility] Comment on above: Performed By: #### C BC ####[facility] PATHOLOGY [id number] [place] [address], Hematocrit (Bld) [Volume fraction] 24.0 % Low 41.0-53.0 [facility] Comment on above: Performed By: #### C BC ####[facility] PATHOLOGY [id number] [place], Hemoglobin (Bld) [Mass/Vol] 8.1 g/dL Low 13.9-16.3 [facility] Comment on above: Performed By: #### C BC ####[facility] PATHOLOGY [id number] [place], MCH (RBC) [Entitic mass] 31.0 pg Normal 26.0-34.0 [facility] Comment on above: Performed By: #### C BC ####[facility] PATHOLOGY [id number] [place], MCHC (RBC) [Mass/Vol] 33.9 g/dL Normal 32.0-35.9 [facility] Comment on above: Performed By: #### C BC ####[facility] PATHOLOGY [id number] [place], MCV (RBC) [Entitic vol] 92 fL Normal 80-100 [facility] Comment on above: Performed By: #### C BC ####[facility] PATHOLOGY [id number] [place], Platelet mean volume (Bld) [Entitic vol] 6.6 fL Low 7.5-11.2 [facility] Comment on above: Performed By: #### C BC ####[facility] PATHOLOGY [id number] [place], Platelets (Bld) [#/Vol] 420 10*3/uL High 150-400 [facility] Comment on above: Performed By: #### C BC ####[facility] PATHOLOGY [id number] [place], RBC (Bld) [#/Vol] 2.62 10*6/uL Low 4.50-5.90 [facility] Comment on above: Performed By: #### C BC ####[facility] PATHOLOGY [id number] [place], WBC (Bld) [#/Vol] 8.3 10*3/uL Normal 4.5-11.5 [facility] Comment on above: Performed By: #### C BC ####[facility] PATH[facility] [id number] [place], Care Plan Noteon 12-17-2020 Project Engineering Director Authentication Interface Message Text Normal [facility] GLUCOSE, FINGERSTICK-IN OFFI CEon 12-17-2020 Glucose [Mass/Vol] 147 mg/dL High 80-116 [facility] Comment on above: Result Comment: Javier childress RN, APN, MD Performed By: #### 8 2948 ####NURSING GLUCOSE [id number] [place], [address] Glucose [Mass/Vol] 205 mg/dL High 80-116 [facility] Comment on above: Performed By: #### 8 2948 ####NURSING GLUCOSE [id number] [place], [address] Glucose [Mass/Vol] 263 mg/dL High 80-116 [facility] Comment on above: Performed By: #### 8 2948 ####NURSING GLUCOSE [id number] [place], [address] Glucose [Mass/Vol] 133 mg/dL High 80-116 [facility] Comment on above: Performed By: #### 8 2948 ####NURSING GLUCOSE [id number] [place], [address] MAGNESIUMon 12-17-2020 Magnesium [Mass/Vol] 1.7 mg/dL Normal 1.6-2.8 [facility] Comment on above: Performed By: #### C H8, MG ####[facility] PATH[facility] [id number] [place], [place], Progress Noteson 12-17-2020 Project Engineering Director Authentication Interface Message Text Normal [facility] Project Engineering Director Authentication Interface Message Text Normal [facility] Project Engineering Director Authentication Interface Message Text Normal [facility] XR CHEST AP OR PA 1 VIEWon 0 12-17-2020 XR CHEST AP OR PA 1 VIEW Normal [facility] BASIC METABOLIC PANELon 11-22 Anion gap [Moles/Vol] 14 mmol/L High 5-13 [facility] Comment on above: Performed By: #### Rosa Wells CH8 ####[facility] PATH[facility] [id number] [place], [place], Calcium [Mass/Vol] 7.4 mg/dL Low 8.4-10.4 [facility] Comment on above: Performed By: #### Rosa Wells, JASON8 ####S PATHOLOGY [id number] [place], [place], Chloride [Moles/Vol] 101 mmol/L Normal 97-111 [facility] Comment on above: Performed By: #### Rosa Wells, JASON8 ####[facility] PATHOLOGY [id number] [place], CO2 [Moles/Vol] 25 mmol/L Normal 21-30 [facility] Comment on above: Performed By: #### Rosa Wells, JASON8 ####[facility] PATHOLOGY [id number] [place], [place], Creatinine [Mass/Vol] 0.74 mg/dL Low 0.80-1.30 [facility] Comment on above: Performed By: ###Libra Wells, JASON8 ####[facility] PATHOLOGY [id number] [place], ESTIMATED GFR (CKD-EPI) 97 mL/min/1.73sqm Normal >=60 [facility] Comment on above: Performed By: #### Rosa Wells, JASON8 ####[facility] PATHOLOGY [id number] [place], Glucose [Mass/Vol] 138 mg/dL High 80-116 [facility] Comment on above: Performed By: ###Libra Wells, JASON8 ####[facility] PATHOLOGY [id number] [place], Potassium [Moles/Vol] 4.5 mmol/L Normal 3.3-5.3 [facility] Comment on above: Performed By: ###Libra Wells, JASON8 ####S PATHOLOGY [id number] [place], Sodium [Moles/Vol] 135 mmol/L Normal 135-148 [facility] Comment on above: Performed By: #### Rosa Wells, JASON8 ####[facility] PATHOLOGY [id number] [place], Urea nitrogen [Mass/Vol] 10 mg/dL Normal 8-22 [facility] Comment on above: Performed By: #### Rosa Wells CH8 ####[facility] PATHOLOGY [id number] [place] [address], COMPLETE BLOOD COUNTon 12-16 Erythrocyte distribution width (RBC) [Ratio] 15.4 % High 11.5-14.5 [facility] Comment on above: Performed By: #### C BC ####[facility] PATHOLOGY [id number] [place] [address], Hematocrit (Bld) [Volume fraction] 24.6 % Low 41.0-53.0 [facility] Comment on above: Performed By: #### C BC ####[facility] PATHOLOGY [id number] [place] [address], Hemoglobin (Bld) [Mass/Vol] 8.4 g/dL Low 13.9-16.3 [facility] Comment on above: Performed By: #### C BC ####[facility] PATHOLOGY [id number] [place] [address], MCH (RBC) [Entitic mass] 30.4 pg Normal 26.0-34.0 [facility] Comment on above: Performed By: #### C BC ####[facility] PATHOLOGY [id number] [place] [address], MCHC (RBC) [Mass/Vol] 34.0 g/dL Normal 32.0-35.9 [facility] Comment on above: Performed By: #### C BC ####[facility] PATHOLOGY [id number] [place], MCV (RBC) [Entitic vol] 89 fL Normal 80-100 [facility] Comment on above: Performed By: #### C BC ####[facility] PATHOLOGY [id number] [place], Platelet mean volume (Bld) [Entitic vol] 6.8 fL Low 7.5-11.2 [facility] Comment on above: Performed By: #### C BC ####[facility] PATHOLOGY [id number] [place], Platelets (Bld) [#/Vol] 482 10*3/uL High 150-400 [facility] Comment on above: Performed By: #### C BC ####[facility] PATHOLOGY [id number] [place], RBC (Bld) [#/Vol] 2.75 10*6/uL Low 4.50-5.90 [facility] Comment on above: Performed By: #### C BC ####[facility] PATHOLOGY [id number] [place], WBC (Bld) [#/Vol] 8.1 10*3/uL Normal 4.5-11.5 [facility] Comment on above: Performed By: #### C BC ####[facility] PATHOLOGY [id number] [place] [address], Care Plan Noteon 12-16-2020 Project Engineering Director Authentication Interface Message Text Normal [facility] Project Engineering Director Authentication Interface Message Text Updated POC Normal [facility] GLUCOSE, FINGERSTICK-IN OFFI CEon 12-16-2020 Glucose [Mass/Vol] 273 mg/dL High 80-116 [facility] Comment on above: Performed By: #### 8 5908 ####NURSING GLUCOSE [id number] [place], [address] Glucose [Mass/Vol] 243 mg/dL High 80-116 [facility] Comment on above: Performed By: #### 8 3726 ####NURSING GLUCOSE [id number] [place], [address] Glucose [Mass/Vol] 181 mg/dL High 80-116 [facility] Comment on above: Result Comment: Javier childress RN, APN, MD Performed By: #### 8 2549 ####NURSING GLUCOSE [id number] [place], [address] Glucose [Mass/Vol] 105 mg/dL Normal 80-116 [facility] Comment on above: Performed By: #### 8 4072 ####NURSING GLUCOSE [id number] [place], [address] MAGNESIUMon 12-16-2020 Magnesium [Mass/Vol] 1.7 mg/dL Normal 1.6-2.8 [facility] Comment on above: Performed By: #### Rosa Wells CH8 ####[facility] PATHOLOGY [id number] [place], [place], Progress Noteson 12-16-2020 Project Engineering Director Authentication Interface Message Text Normal [facility] Project Engineering Director Authentication Interface Message Text Normal [facility] XR CHEST AP OR PA 1 VIEWon 0 12-16-2020 XR CHEST AP OR PA 1 VIEW Normal [facility] ABO RH TYPEon 12-15-2020 ABO and Rh group Nom (Bld) Blood group O Rh(D) positive Normal [facility] Comment on above: Performed By: #### Jeovanny SALAS ####[facility] PATHOLOGY [id number] [place] [address], BASIC METABOLIC PANELon 11-22 Anion gap [Moles/Vol] 12 mmol/L Normal 5-13 [facility] Comment on above: Performed By: #### Sofia H8, MG ####S PATHOLOGY [id number] [place], Calcium [Mass/Vol] 7.2 mg/dL Low 8.4-10.4 [facility] Comment on above: Performed By: #### Sofia H8, MG ####S PATHOLOGY [id number] [place], Chloride [Moles/Vol] 101 mmol/L Normal 97-111 [facility] Comment on above: Performed By: #### Sofia H8, MG ####S PATHOLOGY [id number] [place], CO2 [Moles/Vol] 26 mmol/L Normal 21-30 [facility] Comment on above: Performed By: #### Sofia H8, MG ####S PATHOLOGY [id number] [place], Creatinine [Mass/Vol] 0.76 mg/dL Low 0.80-1.30 [facility] Comment on above: Performed By: #### Sofia H8, MG ####S PATHOLOGY [id number] [place], ESTIMATED GFR (CKD-EPI) 96 mL/min/1.73sqm Normal >=60 [facility] Comment on above: Performed By: #### Sofia Shah, MG ####S PATHOLOGY [id number] [place], Glucose [Mass/Vol] 218 mg/dL High 80-116 [facility] Comment on above: Performed By: #### Sofia Shah, MG ####S PATHOLOGY [id number] [place] [address], Potassium [Moles/Vol] 4.3 mmol/L Normal 3.3-5.3 [facility] Comment on above: Performed By: #### Sofia Shah, MG ####S PATHOLOGY [id number] [place] [address], Sodium [Moles/Vol] 135 mmol/L Normal 135-148 [facility] Comment on above: Performed By: #### Sofia Shah, MG ####S PATHOLOGY [id number] [place] [address], Urea nitrogen [Mass/Vol] 12 mg/dL Normal 8-22 [facility] Comment on above: Performed By: #### Sofia Shah, MG ####[facility] PATHOLOGY [id number] [place] [address], COMPLETE BLOOD COUNTon 12-15 Erythrocyte distribution width (RBC) [Ratio] 15.2 % High 11.5-14.5 [facility] Comment on above: Performed By: #### Sofia BC ####S PATHOLOGY [id number] [place], Hematocrit (Bld) [Volume fraction] 25.1 % Low 41.0-53.0 [facility] Comment on above: Performed By: #### C BC ####S PATHOLOGY [id number] [place] [address], Hemoglobin (Bld) [Mass/Vol] 8.4 g/dL Low 13.9-16.3 [facility] Comment on above: Performed By: #### Sofia BC ####S PATHOLOGY [id number] [place] [address], [place], MCH (RBC) [Entitic mass] 29.8 pg Normal 26.0-34.0 [facility] Comment on above: Performed By: #### C BC ####[facility] PATHOLOGY [id number] [place], MCHC (RBC) [Mass/Vol] 33.4 g/dL Normal 32.0-35.9 [facility] Comment on above: Performed By: #### C BC ####[facility] PATHOLOGY [id number] [place], MCV (RBC) [Entitic vol] 89 fL Normal 80-100 [facility] Comment on above: Performed By: #### C BC ####S PATHOLOGY [id number] [place] [address], Platelet mean volume (Bld) [Entitic vol] 7.0 fL Low 7.5-11.2 [facility] Comment on above: Performed By: #### C BC ####[facility] PATHOLOGY [id number] [place] [address], Platelets (Bld) [#/Vol] 548 10*3/uL High 150-400 [facility] Comment on above: Performed By: #### C BC ####[facility] PATHOLOGY [id number] [place], RBC (Bld) [#/Vol] 2.82 10*6/uL Low 4.50-5.90 [facility] Comment on above: Performed By: #### C BC ####[facility] PATHOLOGY [id number] [place] [address], WBC (Bld) [#/Vol] 8.4 10*3/uL Normal 4.5-11.5 [facility] Comment on above: Performed By: #### C BC ####S PATHOLOGY [id number] [place], [place], Care Plan Noteon 12-15-2020 Project Engineering Director Authentication Interface Message Text Normal [facility] Consultson 12-15-2020 Project Engineering Director Authentication Interface Message Text Normal [facility] GLUCOSE, FINGERSTICK-IN OFFI CEon 12-15-2020 Glucose [Mass/Vol] 149 mg/dL High 80-116 [facility] Comment on above: Result Comment: Javier childress RN, APN, MD Performed By: #### 8 2948 ####NURSING GLUCOSE [id number] [place], [address] Glucose [Mass/Vol] 138 mg/dL High 80-116 [facility] Comment on above: Performed By: #### 8 2948 ####NURSING GLUCOSE [id number] [place], [address] Glucose [Mass/Vol] 144 mg/dL High 80-116 [facility] Comment on above: Performed By: #### 8 2948 ####NURSING GLUCOSE [id number] [place], [address] Glucose [Mass/Vol] 198 mg/dL High 80-116 [facility] Comment on above: Performed By: #### 8 2948 ####NURSING GLUCOSE [id number] [place], [address] Glucose [Mass/Vol] 270 mg/dL High 80-116 [facility] Comment on above: Result Comment: Javier childress RN, APN, MD Performed By: #### 8 2948 ####NURSING GLUCOSE [id number] [place], [address] MAGNESIUMon 12-15-2020 Magnesium [Mass/Vol] 1.7 mg/dL Normal 1.6-2.8 [facility] Comment on above: Performed By: #### C H8, MG ####[facility] PATHOLOG[facility] [id number] [place], [address] Progress Noteson 12-15-2020 Project Engineering Director Authentication Interface Message Text Normal [facility] Project Engineering Director Authentication Interface Message Text SW continue to follow for DC planning. Pt to be DC to [facility]. Will need a precert. Please notify SW when pt is nearing DC. No weekend DC. JERMAINE LM with brother Ed, alerting him to the above. Isabel Morrison, JACQUIEA, [employer] [phone] Normal [facility] Project Engineering Director Authentication Interface Message Text Normal [facility] TYPE AND SCREENon 12-15-2020 ABO and Rh group Nom (Bld) Blood group O Rh(D) positive Normal [facility] Comment on above: Performed By: #### T S ####S PATHOLOGY [id number] [place], ABO and Rh group Nom (Bld) No Previous Results Normal [facility] Comment on above: Performed By: #### T S ####[facility] PATHOLOGY [id number] [place], [place], ABSC INT Negative Normal [facility] Comment on above: Performed By: #### T S ####[facility] PATHOLOGY [id number] [place], XR CHEST AP OR PA 1 VIEWon 0 12-15-2020 XR CHEST AP OR PA 1 VIEW Normal [facility] Care Plan Noteon 12-14-2020 Project Engineering Director Authentication Interface Message Text Normal [facility] Consultson 12-14-2020 Project Engineering Director Authentication Interface Message Text Normal [facility] GLUCOSE, FINGERSTICK-IN OFFI CEon 12-14-2020 Glucose [Mass/Vol] 184 mg/dL High 80-116 [facility] Comment on above: Performed By: #### 8 2948 ####NURSING GLUCOSE [id number] [place], [address] Glucose [Mass/Vol] 218 mg/dL High 80-116 [facility] Comment on above: Performed By: #### 8 2948 ####NURSING GLUCOSE [id number] [place], [address] Glucose [Mass/Vol] 168 mg/dL High 80-116 [facility] Comment on above: Performed By: #### 8 2948 ####NURSING GLUCOSE [id number] [place], [address] Progress Noteson 12-14-2020 Project Engineering Director Authentication Interface Message Text Normal [facility] Project Engineering Director Authentication Interface Message Text Normal [facility] Project Engineering Director Authentication Interface Message Text Normal [facility] XR CHEST AP OR PA 1 VIEWon 0 12-14-2020 XR CHEST AP OR PA 1 VIEW Normal [facility] BASIC METABOLIC PANELon -2 Anion gap [Moles/Vol] 14 mmol/L High 5-13 [facility] Comment on above: Performed By: #### C H8, MG ####[facility] PATHOLOGY [id number] [place], Calcium [Mass/Vol] 7.3 mg/dL Low 8.4-10.4 [facility] Comment on above: Performed By: #### C H8, MG ####[facility] PATHOLOGY [id number] [place], Chloride [Moles/Vol] 101 mmol/L Normal 97-111 [facility] Comment on above: Performed By: #### C H8, MG ####[facility] PATHOLOGY [id number] [place], CO2 [Moles/Vol] 22 mmol/L Normal 21-30 [facility] Comment on above: Performed By: #### C H8, MG ####[facility] PATHOLOGY [id number] [place], Creatinine [Mass/Vol] 0.76 mg/dL Low 0.80-1.30 [facility] Comment on above: Performed By: #### C H8, MG ####[facility] PATHOLOGY [id number] [place], ESTIMATED GFR (CKD-EPI) 96 mL/min/1.73sqm Normal >=60 [facility] Comment on above: Performed By: #### C H8, MG ####[facility] PATHOLOGY [id number] [place], Glucose [Mass/Vol] 218 mg/dL High 80-116 [facility] Comment on above: Performed By: #### C H8, MG ####[facility] PATHOLOGY [id number] [place], Potassium [Moles/Vol] 4.7 mmol/L Normal 3.3-5.3 [facility] Comment on above: Result Comment: Hemo lysis present Performed By: #### C H8, MG ####[facility] PATHOLOGY [id number] [place], Sodium [Moles/Vol] 132 mmol/L Low 135-148 [facility] Comment on above: Performed By: #### C H8, MG ####S PATHOLOGY [id number] [place], Urea nitrogen [Mass/Vol] 16 mg/dL Normal 8-22 [facility] Comment on above: Performed By: #### C H8, MG ####[facility] PATHOLOGY [id number] [place], COMPLETE BLOOD COUNTon 12-13 Erythrocyte distribution width (RBC) [Ratio] 15.4 % High 11.5-14.5 [facility] Comment on above: Performed By: #### C BC ####[facility] PATHOLOGY [id number] [place], Hematocrit (Bld) [Volume fraction] 24.9 % Low 41.0-53.0 [facility] Comment on above: Performed By: #### C BC ####[facility] PATHOLOGY [id number] [place] [address], Hemoglobin (Bld) [Mass/Vol] 8.5 g/dL Low 13.9-16.3 [facility] Comment on above: Performed By: #### C BC ####[facility] PATHOLOGY [id number] [place] [address], MCH (RBC) [Entitic mass] 30.6 pg Normal 26.0-34.0 [facility] Comment on above: Performed By: #### C BC ####S PATHOLOGY [id number] [place], MCHC (RBC) [Mass/Vol] 34.1 g/dL Normal 32.0-35.9 [facility] Comment on above: Performed By: #### C BC ####S PATHOLOGY [id number] [place], MCV (RBC) [Entitic vol] 90 fL Normal 80-100 [facility] Comment on above: Performed By: #### C BC ####S PATHOLOGY [id number] [place], Platelet mean volume (Bld) [Entitic vol] 7.1 fL Low 7.5-11.2 [facility] Comment on above: Performed By: #### C BC ####S PATHOLOGY [id number] [place], Platelets (Bld) [#/Vol] 597 10*3/uL High 150-400 [facility] Comment on above: Performed By: #### C BC ####[facility] PATHOLOGY [id number] [place], RBC (Bld) [#/Vol] 2.77 10*6/uL Low 4.50-5.90 [facility] Comment on above: Performed By: #### C BC ####[facility] PATHOLOGY [id number] [place], WBC (Bld) [#/Vol] 10.0 10*3/uL Normal 4.5-11.5 [facility] Comment on above: Performed By: #### C BC ####[facility] PATHOLOGY [id number] [place], [place], CT HEAD W/O CONTRASTon 12-13 CT HEAD W/O CONTRAST Normal [facility] Care Plan Noteon 12-13-2020 Project Engineering Director Authentication Interface Message Text Normal [facility] Consultson 12-13-2020 Project Engineering Director Authentication Interface Message Text Normal [facility] Project Engineering Director Authentication Interface Message Text Normal [facility] GLUCOSE, FINGERSTICK-IN OFFI CEon 12-13-2020 Glucose [Mass/Vol] 256 mg/dL High 80-116 [facility] Comment on above: Performed By: #### 8 2948 ####NURSING GLUCOSE [id number] [place], [address] Glucose [Mass/Vol] 231 mg/dL High 80-116 [facility] Comment on above: Performed By: #### 8 2948 ####NURSING GLUCOSE [id number] [place], [address] Glucose [Mass/Vol] 216 mg/dL High 80-116 [facility] Comment on above: Performed By: #### 8 2948 ####NURSING GLUCOSE [id number] [place], [address] Glucose [Mass/Vol] 221 mg/dL High 80-116 [facility] Comment on above: Performed By: #### 8 2948 ####NURSING GLUCOSE [id number] [place], [address] MAGNESIUMon 12-13-2020 Magnesium [Mass/Vol] 1.9 mg/dL Normal 1.6-2.8 [facility] Comment on above: Result Comment: Hemo lysis present Performed By: #### C H8, MG ####[facility] PATH[facility] [id number] [place], [place], Progress Noteson 12-13-2020 Project Engineering Director Authentication Interface Message Text SW obtained SS Number: [id number] Pt has been accepted to [facility]. Please alert SW when pt is nearing DC. Pt with +Chest Tube. [id number] submitted in [facility] [employer] [facility] [phone] Normal [facility] Project Engineering Director Authentication Interface Message Text Normal [facility] Project Engineering Director Authentication Interface Message Text Normal [facility] XR CHEST AP OR PA 1 VIEWon 0 12-13-2020 XR CHEST AP OR PA 1 VIEW Normal [facility] BASIC METABOLIC PANELon 11-22 Anion gap [Moles/Vol] 12 mmol/L Normal 5-13 [facility] Comment on above: Performed By: #### C H8, PHOS, MG ####[facility] PATHOLOGY [id number] [place], Calcium [Mass/Vol] 7.3 mg/dL Low 8.4-10.4 [facility] Comment on above: Performed By: #### C H8, PHOS, MG ####[facility] PATHOLOGY [id number] [place], Chloride [Moles/Vol] 103 mmol/L Normal 97-111 [facility] Comment on above: Performed By: #### C H8, PHOS, MG ####[facility] PATHOLOGY [id number] [place], CO2 [Moles/Vol] 22 mmol/L Normal 21-30 [facility] Comment on above: Performed By: #### C H8, PHOS, MG ####[facility] PATHOLOGY [id number] [place], Creatinine [Mass/Vol] 0.85 mg/dL Normal 0.80-1.30 [facility] Comment on above: Performed By: #### C H8, PHOS, MG ####[facility] PATHOLOGY [id number] [place], ESTIMATED GFR (CKD-EPI) 92 mL/min/1.73sqm Normal >=60 [facility] Comment on above: Performed By: #### C H8, PHOS, MG ####[facility] PATHOLOGY [id number] [place], Glucose [Mass/Vol] 196 mg/dL High 80-116 [facility] Comment on above: Performed By: #### Sofia H8, PHOS, MG ####[facility] PATHOLOGY [id number] [place], Potassium [Moles/Vol] 4.2 mmol/L Normal 3.3-5.3 [facility] Comment on above: Performed By: #### Sofia HMarilee, PHOS, MG ####[facility] PATHOLOGY [id number] [place], [place], Sodium [Moles/Vol] 133 mmol/L Low 135-148 [facility] Comment on above: Performed By: #### C H8, PHOS, MG ####[facility] [id number] [place], [place], Urea nitrogen [Mass/Vol] 20 mg/dL Normal 8-22 The [facility] Comment on above: Performed By: #### C H8, PHOS, MG ####[facility] PATH[facility] [id number] [place], COMPLETE BLOOD COUNTon 12-12 Erythrocyte distribution width (RBC) [Ratio] 15.2 % High 11.5-14.5 The [facility] Comment on above: Performed By: #### C BC ####[facility] PATH[facility]Y [id number] [place], Hematocrit (Bld) [Volume fraction] 23.7 % Low 41.0-53.0 [facility] Comment on above: Performed By: #### C BC ####[facility] PATHOLOGY [id number] [place], Hemoglobin (Bld) [Mass/Vol] 7.6 g/dL Low 13.9-16.3 [facility] Comment on above: Performed By: #### C BC ####[facility] PATHOLOGY [id number] [place], MCH (RBC) [Entitic mass] 29.1 pg Normal 26.0-34.0 [facility] Comment on above: Performed By: #### C BC ####[facility] PATHOLOGY [id number] [place], MCHC (RBC) [Mass/Vol] 32.2 g/dL Normal 32.0-35.9 [facility] Comment on above: Performed By: #### C BC ####[facility] PATHOLOGY [id number] [place] [address], MCV (RBC) [Entitic vol] 91 fL Normal 80-100 [facility] Comment on above: Performed By: #### C BC ####[facility] PATHOLOGY [id number] [place], Platelet mean volume (Bld) [Entitic vol] 7.0 fL Low 7.5-11.2 [facility] Comment on above: Performed By: #### C BC ####[facility] PATHOLOGY [id number] [place], Platelets (Bld) [#/Vol] 593 10*3/uL High 150-400 [facility] Comment on above: Performed By: #### C BC ####[facility] PATHOLOGY [id number] [place], RBC (Bld) [#/Vol] 2.62 10*6/uL Low 4.50-5.90 [facility] Comment on above: Performed By: #### C BC ####[facility] PATHOLOGY [id number] [place], WBC (Bld) [#/Vol] 13.6 10*3/uL High 4.5-11.5 [facility] Comment on above: Performed By: #### C BC ####[facility] PATH[facility] [id number] [place], [place], CT CHEST W/O CONTRASTon 11-22 CT CHEST W/O CONTRAST Normal [facility] Care Plan Noteon 12-12-2020 Project Engineering Director Authentication Interface Message Text Normal [facility] Consultson 12-12-2020 Project Engineering Director Authentication Interface Message Text Normal [facility] Project Engineering Director Authentication Interface Message Text Normal [facility] GLUCOSE, FINGERSTICK-IN OFFI CEon 12-12-2020 Glucose [Mass/Vol] 264 mg/dL High 80-116 [facility] Comment on above: Result Comment: Javier childress RN, APN, MD Performed By: #### 8 2948 ####NURSING GLUCOSE [id number] [place], [address] Glucose [Mass/Vol] 250 mg/dL High 80-116 [facility] Comment on above: Result Comment: Javier childress RN, APN, MD Performed By: #### 8 2948 ####NURSING GLUCOSE [id number] [place], [address] Glucose [Mass/Vol] 217 mg/dL High 80-116 [facility] Comment on above: Result Comment: Javier childress RN, APN, MD Performed By: #### 8 2948 ####NURSING GLUCOSE [id number] [place], [address] Glucose [Mass/Vol] 163 mg/dL High 80-116 [facility] Comment on above: Result Comment: Javier childress RN, APN, MD Performed By: #### 8 2948 ####NURSING GLUCOSE [id number] [place], [address] Glucose [Mass/Vol] 270 mg/dL High 80-116 [facility] Comment on above: Performed By: #### 8 2948 ####NURSING GLUCOSE [id number] [place], [address] MAGNESIUMon 12-12-2020 Magnesium [Mass/Vol] 2.1 mg/dL Normal 1.6-2.8 [facility] Comment on above: Performed By: #### Sofia Shah PHOAlysia, MG ####S PATHOLOGY [id number] [place], PHOSPHORUSon 12-12-2020 Phosphate [Mass/Vol] 3.0 mg/dL Normal 2.5-4.8 [facility] Comment on above: Performed By: #### Sofia Shah, PHOS, MG ####[facility] PATHOLOGY [id number] [place], Progress Noteson 12-12-2020 Project Engineering Director Authentication Interface Message Text Normal [facility] Project Engineering Director Authentication Interface Message Text Normal [facility] XR CHEST AP OR PA 1 VIEWon 0 12-12-2020 XR CHEST AP OR PA 1 VIEW Normal [facility] ANTI FXA-LMW HEPARINon 12-11 ANTI FXA-LMW HEPARIN ASSAY 0.04 IU/mL Normal [facility] Comment on above: Order Comment: The r ecommended therapeutic range for treatment of thrombosis with Low Molecular Weight Heparin is 0.5 - 1.0 IU/mLThe recommended range for VTE prophylaxis with Low Molecular Weight Heparin is 0.2 - 0.4 IU/mL. Performed By: #### A XL ####[facility] PATHOLOGY [id number] [place], BASIC METABOLIC PANELon 11-22 Anion gap [Moles/Vol] 15 mmol/L High 5-13 [facility] Comment on above: Performed By: #### JUSTINA Sales ####[facility] PATHOLOGY [id number] [place], Calcium [Mass/Vol] 7.3 mg/dL Low 8.4-10.4 [facility] Comment on above: Performed By: #### JUSTINA Sales ####[facility] PATH[facility]Y [id number] [place], Chloride [Moles/Vol] 99 mmol/L Normal 97-111 [facility] Comment on above: Performed By: #### JUSTINA Sales ####[facility] PATHOLOGY [id number] [place], CO2 [Moles/Vol] 19 mmol/L Low 21-30 [facility] Comment on above: Performed By: #### Rosa Wells, JASON8 ####[facility] PATHOLOGY [id number] [place], Creatinine [Mass/Vol] 0.79 mg/dL Low 0.80-1.30 [facility] Comment on above: Performed By: #### Rosa Wells, JASON8 ####[facility] PATHOLOGY [id number] [place], ESTIMATED GFR (CKD-EPI) 95 mL/min/1.73sqm Normal >=60 [facility] Comment on above: Performed By: #### Rosa Wells, JASON8 ####[facility] PATHOLOGY [id number] [place] [address], Glucose [Mass/Vol] 212 mg/dL High 80-116 [facility] Comment on above: Performed By: #### Rosa Wells, JASON8 ####[facility] PATHOLOGY [id number] [place] [address], Potassium [Moles/Vol] 5.0 mmol/L Normal 3.3-5.3 [facility] Comment on above: Result Comment: Hemo lysis present Performed By: #### Rosa Wells, JASON8 ####[facility] PATHOLOGY [id number] [place] [address], Sodium [Moles/Vol] 128 mmol/L Low 135-148 [facility] Comment on above: Performed By: #### Rosa Wells CH8 ####[facility] PATHOLOGY [id number] [place], Urea nitrogen [Mass/Vol] 17 mg/dL Normal 8-22 [facility] Comment on above: Performed By: #### Rosa Wells, JASON8 ####[facility] PATHOLOGY [id number] [place], COMPLETE BLOOD COUNTon 12-11 Erythrocyte distribution width (RBC) [Ratio] 15.3 % High 11.5-14.5 [facility] Comment on above: Performed By: #### Sofia BC ####[facility] PATHOLOGY [id number] [place] [address], Hematocrit (Bld) [Volume fraction] 29.4 % Low 41.0-53.0 [facility] Comment on above: Performed By: #### C BC ####[facility] PATHOLOGY [id number] [place], Hemoglobin (Bld) [Mass/Vol] 9.7 g/dL Low 13.9-16.3 [facility] Comment on above: Performed By: #### C BC ####[facility] PATHOLOGY [id number] [place] [address], MCH (RBC) [Entitic mass] 29.6 pg Normal 26.0-34.0 [facility] Comment on above: Performed By: #### C BC ####[facility] PATHOLOGY [id number] [place] [address], MCHC (RBC) [Mass/Vol] 32.9 g/dL Normal 32.0-35.9 [facility] Comment on above: Performed By: #### C BC ####[facility] PATHOLOGY [id number] [place] [address], MCV (RBC) [Entitic vol] 90 fL Normal 80-100 [facility] Comment on above: Performed By: #### C BC ####[facility] PATHOLOGY [id number] [place] [address], Platelet mean volume (Bld) [Entitic vol] 7.3 fL Low 7.5-11.2 [facility] Comment on above: Performed By: #### C BC ####[facility] PATHOLOGY [id number] [place] [address], Platelets (Bld) [#/Vol] 433 10*3/uL High 150-400 [facility] Comment on above: Performed By: #### C BC ####[facility] PATHOLOGY [id number] [place] [address], RBC (Bld) [#/Vol] 3.26 10*6/uL Low 4.50-5.90 [facility] Comment on above: Performed By: #### C BC ####[facility] PATHOLOGY [id number] [place] [address], WBC (Bld) [#/Vol] 14.5 10*3/uL High 4.5-11.5 [facility] Comment on above: Performed By: #### C BC ####S PATHOLOGY [id number] [place], Care Plan Noteon 12-11-2020 Project Engineering Director Authentication Interface Message Text Normal [facility] Consultson 12-11-2020 Project Engineering Director Authentication Interface Message Text Normal [facility] Project Engineering Director Authentication Interface Message Text Normal [facility] Project Engineering Director Authentication Interface Message Text Normal [facility] GLUCOSE, FINGERSTICK-IN OFFI CEon 12-11-2020 Glucose [Mass/Vol] 242 mg/dL High 80-116 [facility] Comment on above: Result Comment: Javier childress RN, APN, MD Performed By: #### 8 2948 ####NURSING GLUCOSE [id number] [place], [address] Glucose [Mass/Vol] 219 mg/dL High 80-116 [facility] Comment on above: Result Comment: Javier childress RN, APN, MD Performed By: #### 8 2948 ####NURSING GLUCOSE [id number] [place], [address] Glucose [Mass/Vol] 194 mg/dL High 80-116 [facility] Comment on above: Result Comment: Javier childress RN, APN, MD Performed By: #### 8 2948 ####NURSING GLUCOSE [id number] [place], [address] MAGNESIUMon 12-11-2020 Magnesium [Mass/Vol] 1.8 mg/dL Normal 1.6-2.8 [facility] Comment on above: Result Comment: Hemo lysis present Performed By: #### M G, CH8 ####S PATHOLOGY [id number] [place], [place], Progress Noteson 12-11-2020 Project Engineering Director Authentication Interface Message Text Normal [facility] Project Engineering Director Authentication Interface Message Text Chart and images reviewed with Dr. Loyd. Pigtail placed 12/08; pleural cultures +strep. No recent CT chest after tube placement. Please perform non-contrast CT chest Full note to follow pending results Nba Chow PA-C Normal [facility] Project Engineering Director Authentication Interface Message Text Normal [facility] Project Engineering Director Authentication Interface Message Text Normal [facility] Project Engineering Director Authentication Interface Message Text Normal [facility] VANCOMYCIN TROUGHon 12-12-19 21 VANC TR 13.1 ug/mL Normal 10.0-20.0 [facility] Comment on above: Performed By: #### V ANC TR ####[facility] PATHOLOGY [id number] [place], [address] XR CHEST AP OR PA 1 VIEWon 0 12-11-2020 XR CHEST AP OR PA 1 VIEW Normal [facility] Care Plan Noteon 12-10-2020 Project Engineering Director Authentication Interface Message Text Normal [facility] GLUCOSE, FINGERSTICK-IN OFFI CEon 12-10-2020 Glucose [Mass/Vol] 252 mg/dL High 80-116 [facility] Comment on above: Result Comment: Javier childress RN, APN, MD Performed By: #### 8 2948 ####NURSING GLUCOSE [id number] [place], [address] Glucose [Mass/Vol] 198 mg/dL High 80-116 [facility] Comment on above: Performed By: #### 8 2948 ####NURSING GLUCOSE [id number] [place], [address] Glucose [Mass/Vol] 269 mg/dL High 80-116 [facility] Comment on above: Performed By: #### 8 2948 ####NURSING GLUCOSE [id number] [place], [address] Glucose [Mass/Vol] 194 mg/dL High 80-116 [facility] Comment on above: Performed By: #### 8 2948 ####NURSING GLUCOSE [id number] [place], [address] Glucose [Mass/Vol] 186 mg/dL High 80-116 [facility] Comment on above: Result Comment: Javier childress RN, APN, MD Performed By: #### 8 2948 ####NURSING GLUCOSE [id number] [place], [address] Progress Noteson 12-10-2020 Project Engineering Director Authentication Interface Message Text Normal [facility] Project Engineering Director Authentication Interface Message Text Normal [facility] Project Engineering Director Authentication Interface Message Text Normal [facility] VANCOMYCIN TROUGHon 12-11-19 21 VANC TR 14.2 ug/mL Normal 10.0-20.0 [facility] Comment on above: Performed By: #### Mikala ANC TR ####[facility] PATH[facility]Y [id number] [place], ANTI FXA-LMW HEPARINon 12-09 ANTI FXA-LMW HEPARIN ASSAY 0.24 IU/mL Normal [facility] Comment on above: Order Comment: The r ecommended therapeutic range for treatment of thrombosis with Low Molecular Weight Heparin is 0.5 - 1.0 IU/mLThe recommended range for VTE prophylaxis with Low Molecular Weight Heparin is 0.2 - 0.4 IU/mL. Performed By: #### A XL ####S PATHOLOGY [id number] [place], BASIC METABOLIC PANELon 11-21 Anion gap [Moles/Vol] 12 mmol/L Normal 5-13 [facility] Comment on above: Performed By: #### V AL, PHOS, MG, CH8 ####[facility] PATHOLOGY [id number] [place], Calcium [Mass/Vol] 7.4 mg/dL Low 8.4-10.4 [facility] Comment on above: Performed By: #### V AL, PHOS, MG, CH8 ####[facility] PATHOLOGY [id number] [place], Chloride [Moles/Vol] 98 mmol/L Normal 97-111 [facility] Comment on above: Performed By: #### V AL, PHOS, MG, CH8 ####[facility] PATHOLOGY [id number] [place], CO2 [Moles/Vol] 26 mmol/L Normal 21-30 [facility] Comment on above: Performed By: #### V AL, PHOS, MG, CH8 ####[facility] PATHOLOGY [id number] [place], Creatinine [Mass/Vol] 0.87 mg/dL Normal 0.80-1.30 [facility] Comment on above: Performed By: #### V AL, PHOS, MG, CH8 ####S PATHOLOGY [id number] [place], ESTIMATED GFR (CKD-EPI) 91 mL/min/1.73sqm Normal >=60 [facility] Comment on above: Performed By: #### V AL, PHOS, MG, CH8 ####S PATHOLOGY [id number] [place], Glucose [Mass/Vol] 265 mg/dL High 80-116 [facility] Comment on above: Performed By: #### V AL, PHOS, MG, CH8 ####S PATHOLOGY [id number] [place] [address], Potassium [Moles/Vol] 3.8 mmol/L Normal 3.3-5.3 [facility] Comment on above: Performed By: #### V AL, PHOS, MG, CH8 ####[facility] PATHOLOGY [id number] [place] [address], Sodium [Moles/Vol] 132 mmol/L Low 135-148 [facility] Comment on above: Performed By: #### V AL, PHOS, MG, CH8 ####[facility] PATHOLOGY [id number] [place] [address], Urea nitrogen [Mass/Vol] 22 mg/dL Normal 8-22 [facility] Comment on above: Performed By: #### V AL, PHOS, MG, CH8 ####S PATHOLOGY [id number] [place], CALCIUM, IONIZEDon CR ICA 1.09 mmol/L Low 1.10-1.40 [facility] Comment on above: Performed By: #### C R ICA ####[facility] PATHOLOGY [id number] [place] [address], COMPLETE BLOOD COUNTon 12-09 Erythrocyte distribution width (RBC) [Ratio] 15.0 % High 11.5-14.5 [facility] Comment on above: Performed By: #### C BC ####S PATHOLOGY [id number] [place] [address] [place], Hematocrit (Bld) [Volume fraction] 24.1 % Low 41.0-53.0 [facility] Comment on above: Performed By: #### C BC ####[facility] PATHOLOGY [id number] [place] [address], Hemoglobin (Bld) [Mass/Vol] 8.1 g/dL Low 13.9-16.3 [facility] Comment on above: Performed By: #### C BC ####[facility] PATHOLOGY [id number] [place] [address], MCH (RBC) [Entitic mass] 30.1 pg Normal 26.0-34.0 [facility] Comment on above: Performed By: #### C BC ####[facility] PATHOLOGY [id number] [place] [address], MCHC (RBC) [Mass/Vol] 33.5 g/dL Normal 32.0-35.9 [facility] Comment on above: Performed By: #### C BC ####[facility] PATHOLOGY [id number] [place] [address], MCV (RBC) [Entitic vol] 90 fL Normal 80-100 [facility] Comment on above: Performed By: #### C BC ####[facility] PATHOLOGY [id number] [place] [address], Platelet mean volume (Bld) [Entitic vol] 8.2 fL Normal 7.5-11.2 [facility] Comment on above: Performed By: #### C BC ####[facility] PATHOLOGY [id number] [place] [address], Platelets (Bld) [#/Vol] 428 10*3/uL High 150-400 [facility] Comment on above: Performed By: #### C BC ####[facility] PATHOLOGY [id number] [place] [address], RBC (Bld) [#/Vol] 2.68 10*6/uL Low 4.50-5.90 [facility] Comment on above: Performed By: #### C BC ####[facility] PATHOLOGY [id number] [place], WBC (Bld) [#/Vol] 16.2 10*3/uL High 4.5-11.5 [facility] Comment on above: Performed By: #### C BC ####S PATHOLOGY [id number] [place], Care Plan Noteon 12-09-2020 Project Engineering Director Authentication Interface Message Text Normal [facility] GLUCOSE, FINGERSTICK-IN OFFI CEon 12-09-2020 Glucose [Mass/Vol] 319 mg/dL High 80-116 [facility] Comment on above: Performed By: #### 8 2948 ####NURSING GLUCOSE [id number] [place], [address] Glucose [Mass/Vol] 304 mg/dL High 80-116 [facility] Comment on above: Performed By: #### 8 2948 ####NURSING GLUCOSE [id number] [place], [address] Glucose [Mass/Vol] 285 mg/dL High 80-116 [facility] Comment on above: Performed By: #### 8 2948 ####NURSING GLUCOSE [id number] [place], [address] Glucose [Mass/Vol] 279 mg/dL High 80-116 [facility] Comment on above: Performed By: #### 8 2948 ####NURSING GLUCOSE [id number] [place], [address] Glucose [Mass/Vol] 368 mg/dL High 80-116 [facility] Comment on above: Performed By: #### 8 2948 ####NURSING GLUCOSE [id number] [place], [address] MAGNESIUMon 12-09-2020 Magnesium [Mass/Vol] 2.0 mg/dL Normal 1.6-2.8 [facility] Comment on above: Performed By: #### V AL PHOS, MG, CH8 ####S PATHOLOGY [id number] [place], PHOSPHORUSon 12-09-2020 Phosphate [Mass/Vol] 2.9 mg/dL Normal 2.5-4.8 [facility] Comment on above: Performed By: #### Mikala HUTCHINSON, PHOS, MG, CH8 ####[facility] PATHOLOG[facility] [id number] [place], [place], Progress Noteson 12-09-2020 Project Engineering Director Authentication Interface Message Text Patient received the Sacrament of the ANOINTING OF THE SICK from Fr. Shaggy Ornelas ([phone]). Normal [facility] Project Engineering Director Authentication Interface Message Text Normal [facility] VALPROIC ACIDon 12-09-2020 FRANCOISE 19 ug/mL Low 50-100 [facility] Comment on above: Performed By: #### Mikala HUTCHINSON, PHOS, MG, CH8 ####[facility] PATHOLOGY [id number] [place], XR CHEST AP OR PA 1 VIEWon 0 12-09-2020 XR CHEST AP OR PA 1 VIEW Normal [facility] AEROBIC BODY FLUID CULTUREon 12-08-2020 AEROBIC BODY FLUID CULTURE Normal [facility] Comment on above: Performed By: #### C BDYFLD ####[facility] Hvyoyzyvm7060 [place], [place] BASIC METABOLIC PANELon 11-21 Anion gap [Moles/Vol] 13 mmol/L Normal 5-13 [facility] Comment on above: Performed By: #### JUSTINA Sales, NEREIDA ####[facility] PATHOLOGY [id number] [place], Calcium [Mass/Vol] 7.5 mg/dL Low 8.4-10.4 [facility] Comment on above: Performed By: #### JUSTINA Sales, PHOS ####[facility] PATHOLOGY [id number] [place], Chloride [Moles/Vol] 97 mmol/L Normal 97-111 [facility] Comment on above: Performed By: #### JUSTINA Sales, HASMUKHS ####[facility] PATHOLOGY [id number] [place], CO2 [Moles/Vol] 28 mmol/L Normal 21-30 [facility] Comment on above: Performed By: #### JUSTINA Sales, PHOS ####[facility] PATHOLOGY [id number] [place], Creatinine [Mass/Vol] 1.09 mg/dL Normal 0.80-1.30 The [facility] Comment on above: Performed By: #### JUSTINA Sales, PHOS ####[facility] [id number] [place], [place], ESTIMATED GFR (CKD-EPI) 71 mL/min/1.73sqm Normal >=60 [facility] Comment on above: Performed By: #### JUSTINA Sales, PHOS ####[facility] [id number] [place], [place], Glucose [Mass/Vol] 246 mg/dL High 80-116 [facility] Comment on above: Performed By: #### JUSTINA Sales, HASMUKHS ####[facility] [id number] [place], [place], Potassium [Moles/Vol] 3.7 mmol/L Normal 3.3-5.3 [facility] Comment on above: Performed By: #### JUSTINA Sales, PHOS ####S PATHOLOGY [id number] [place], [place], Sodium [Moles/Vol] 134 mmol/L Low 135-148 [facility] Comment on above: Performed By: #### JUSTINA Sales, PHOS ####[facility] [id number] [place], Urea nitrogen [Mass/Vol] 25 mg/dL High 8-22 [facility] Comment on above: Performed By: #### JUSTINA Sales, PHOS ####[facility] [id number] [place], [place], BLOOD GAS, ARTERIALon 2020 CR LESA 4.9 mmol/L High -2.0-2.0 [facility] Comment on above: Performed By: #### Sofia R BGA ####[facility] [id number] [place], [place], CR PCO2 39.6 mm Hg Normal 35.0-45.0 [facility] Comment on above: Performed By: #### C R BGA ####[facility] PATHOLOGY [id number] [place], [place], CR PHA 7.471 High 7.35-7.45 [facility] Comment on above: Performed By: #### C R BGA ####[facility] PATHOLOGY [id number] [place], [place], CR PO2 82 mm Hg Normal 80-100 mm Hg [facility] Comment on above: Performed By: #### C R BGA ####[facility] PATHOLOGY [id number] [place], FIO2 (CATEGORY) 40% Normal [facility] Comment on above: Result Comment: 40L Performed By: #### C R BGA ####[facility] PATHOLOGY [id number] [place] [address], HCO3 (Bld) [Moles/Vol] 29 mmol/L High 22-28 [facility] Comment on above: Performed By: #### C R BGA ####[facility] PATHOLOGY [id number] [place] [address], MODE Nasal Canula Normal [facility] Comment on above: Result Comment: HFNC Performed By: #### C R BGA ####[facility] PATHOLOGY [id number] [place], Oxygen saturation in Blood 96.9 % Normal >=95.1 [facility] Comment on above: Performed By: #### C R BGA ####[facility] PATHOLOGY [id number] [place], CALCIUM, IONIZEDon CR ICA 1.05 mmol/L Low 1.10-1.40 [facility] Comment on above: Performed By: #### L ACT, CR ICA ####[facility] PATHOLOGY [id number] [place], COMPLETE BLOOD COUNTon 12-08 Erythrocyte distribution width (RBC) [Ratio] 14.8 % High 11.5-14.5 [facility] Comment on above: Performed By: #### C BC ####[facility] PATHOLOGY [id number] [place], Hematocrit (Bld) [Volume fraction] 23.4 % Low 41.0-53.0 [facility] Comment on above: Performed By: #### C BC ####[facility] PATHOLOGY [id number] [place], Hemoglobin (Bld) [Mass/Vol] 7.7 g/dL Low 13.9-16.3 The [facility] Comment on above: Performed By: #### C BC ####[facility] PATHOLOGY [id number] [place], MCH (RBC) [Entitic mass] 30.0 pg Normal 26.0-34.0 [facility] Comment on above: Performed By: #### C BC ####[facility] PATHOLOGY [id number] [place], MCHC (RBC) [Mass/Vol] 32.8 g/dL Normal 32.0-35.9 The [facility] Comment on above: Performed By: #### C BC ####[facility] PATHOLOGY [id number] [place], MCV (RBC) [Entitic vol] 92 fL Normal 80-100 The [facility] Comment on above: Performed By: #### C BC ####[facility] PATHOLOGY [id number] [place], Platelet mean volume (Bld) [Entitic vol] 8.5 fL Normal 7.5-11.2 The [facility] Comment on above: Performed By: #### C BC ####[facility] PATHOLOGY [id number] [place], Platelets (Bld) [#/Vol] 339 10*3/uL Normal 150-400 [facility] Comment on above: Performed By: #### C BC ####[facility] PATHOLOGY [id number] [place], RBC (Bld) [#/Vol] 2.55 10*6/uL Low 4.50-5.90 [facility] Comment on above: Performed By: #### C BC ####[facility] [id number] [place], WBC (Bld) [#/Vol] 17.9 10*3/uL High 4.5-11.5 [facility] Comment on above: Performed By: #### C BC ####[facility] [id number] [place], [place], CT CHEST/ABD/PELVIS W/ CONTR Pattie 12-08-2020 CT CHEST/ABD/PELVIS W/ CONTRAST Normal [facility] Care Plan Noteon 12-08-2020 Project Engineering Director Authentication Interface Message Text Normal [facility] Consultson 12-08-2020 Project Engineering Director Authentication Interface Message Text Normal [facility] Project Engineering Director Authentication Interface Message Text Normal [facility] GLUCOSE, FINGERSTICK-IN OFFI CEon 12-08-2020 Glucose [Mass/Vol] 253 mg/dL High 80-116 [facility] Comment on above: Performed By: #### 8 2948 ####NURSING GLUCOSE [id number] [place], [address] Glucose [Mass/Vol] 193 mg/dL High 80-116 [facility] Comment on above: Result Comment: Foll ow Protocol Performed By: #### 8 2948 ####NURSING GLUCOSE [id number] [place], [address] Glucose [Mass/Vol] 252 mg/dL High 80-116 [facility] Comment on above: Performed By: #### 8 2948 ####NURSING GLUCOSE [id number] [place], [address] H AND Glenn 12-08-2020 Project Engineering Director Authentication Interface Message Text Normal [facility] LACTIC ACIDon 12-08-2020 CR LACT 1.4 mmol/L Normal 0.5-2.0 [facility] Comment on above: Performed By: #### L ACT, CR ICA ####[facility] [id number] [place], MAGNESIUMon 12-08-2020 Magnesium [Mass/Vol] 2.0 mg/dL Normal 1.6-2.8 [facility] Comment on above: Performed By: #### Rosa Wells CH8, PHOS ####[facility] [id number] [place], PARTIAL THROMBOPLASTIN TIMEo n 12-08-2020 aPTT Coag (Bld) [Time] 26 s Normal 25-37 [facility] Comment on above: Performed By: #### P T, APTT ####[facility] [id number] [place], PHOSPHORUSon 12-08-2020 Phosphate [Mass/Vol] 3.7 mg/dL Normal 2.5-4.8 [facility] Comment on above: Performed By: #### M G, CH8, PHOS ####[facility] [id number] [place], PROTHROMBIN TIME AND INRon 0 12-08-2020 INR Coag (PPP) [Relative time] 1.30 {INR} High 0.90-1.10 [facility] Comment on above: Performed By: #### P T, APTT ####[facility] [id number] [place], [place], PT Coag (PPP) [Time] 14.7 s High 9.7-12.9 [facility] Comment on above: Performed By: #### P T, APTT ####[facility] [id number] [place], [place], Procedureson 12-08-2020 Project Engineering Director Authentication Interface Message Text Normal [facility] Progress Noteson 12-08-2020 Project Engineering Director Authentication Interface Message Text Normal [facility] Project Engineering Director Authentication Interface Message Text Normal [facility] Project Engineering Director Authentication Interface Message Text Normal [facility] Project Engineering Director Authentication Interface Message Text 0200- Pt admitted to the [facility]. Deaf talks interpretation ipad at the bedside [...] Normal [facility] Discharge Summaryon 03-29-20 17 Discharge Summary MR#: [id number] [facility] Pt. 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 The certified court interpreter indicated that thepatient is fixated on his job at [employer]. He goes back to [facility] discussing discharge planning. The prognosis and discharge plan werediscussed with the brother and close family friend who were present in theroom. The patient was discharged to correction facility.DISCHARGE MEDICATIONS: Following home medications were continued:Carbamazepine [...] stable condition. The patient was dischargedto a correction facility. Instructions to primary care physician.Please follow up within 1 week of discharge. Please review the patient'sdiabetic medication regimen and please follow with the patient's seizuredisorder and oral anti-seizure medication regimen.Electronically Signed by:Pop Dukes M.D. 04/11/2017 09:07 A Pop Dukes M.D...Date Dict: 03/28/2017/07:39 P/Brian Jara MDDate Trans: 03/29/2017 03:44 [id number]: Gasper Thurman D.O. [address] [place] [id number] Normal [facility] BASIC METABOLIC PANELon 10-0 Calcium 8.7 mg/dL Normal 8.6-10.3 [facility] Comment on above: Order Comment: Other , right weakness left gaze pref Performed By: #### 1 0070, 34956 ####[facility] [facility] [place] [address], [facility] Chloride 103 mmol/L Normal 98-107 [facility] Comment on above: Order Comment: Other , right weakness left gaze pref Performed By: #### 1 0070, 25143 ####[facility] [facility] [place] [address], [facility] CO2 27 mmol/L Normal 21-31 [facility] Comment on above: Order Comment: Other , right weakness left gaze pref Performed By: #### 1 69, [address]26 ####[place] [id number] Creatinine 0.97 mg/dL Normal 0.70-1.30 [facility] Comment on above: Order Comment: Other , right weakness left gaze pref Performed By: #### 1 69, 47530 ####[facility] eGFR (black) mL/min/{1.73_m2} Normal >60 [facility] Comment on above: Order Comment: Other , right weakness left gaze pref Performed By: #### 1 69, 39078 ####[place] [address] eGFR (non-black) mL/min/{1.73_m2} Normal >60 Th e [facility] Comment on above: Order Comment: Other , right weakness left gaze pref Performed By: #### 1 69, ####[place] [id number] Glucose mass conc 161 mg/dL High 70-100 [facility] Comment on above: Order Comment: Other , right weakness left gaze pref Performed By: #### 1 69, ####[place] [id number] Potassium molar conc 3.8 mmol/L Normal 3.5-5.1 [facility] Comment on above: Order Comment: Other , right weakness left gaze pref Performed By: #### 1 69, 73130 ####[place] [address] Sodium 139 mmol/L Normal 136-145 [facility] Comment on above: Order Comment: Other , right weakness left gaze pref Performed By: #### 1 69, 44901 ####[facility] [place] [address], [facility] Urea nitrogen 27 mg/dL High 7-25 [facility] Comment on above: Order Comment: Other , right weakness left gaze pref Performed By: #### 1 0070, 18278 ####[facility] [place] [address], [facility] CBC COMPLETE BLOOD COUNTon Erythrocyte distribution width Auto Ratio (RBC) 13.4 % Normal 11.5-16.9 [facility] Comment on above: Order Comment: Other , right weakness left gaze pref Performed By: #### 5 0608 ####[facility] Erythrocytes (RBC) 4.43 mill/mm3 Normal 4.30-5.90 [facility] Comment on above: Order Comment: Other , right weakness left gaze pref Performed By: #### 5 0608 ####[facility] [place] [address], [facility] Hematocrit (HCT) 39.9 % Normal 39.0-55.0 [facility] Comment on above: Order Comment: Other , right weakness left gaze pref Performed By: #### 5 0608 ####[facility] [place] [address], [facility] Hemoglobin mass conc (Bld) 13.1 g/dL Low 13.9-16.3 [facility] Comment on above: Order Comment: Other , right weakness left gaze pref Performed By: #### 5 0608 ####[facility] [place] [address], [facility] MCH 29.5 pg Normal 24.0-32.0 [facility] Comment on above: Order Comment: Other , right weakness left gaze pref Performed By: #### 5 0608 ####[facility] [place] [address], [facility] MCHC mass conc (RBC) 32.7 g/dL Normal 32.0-36.0 [facility] Comment on above: Order Comment: Other , right weakness left gaze pref Performed By: #### 5 0608 ####[facility] MCV 90.1 fL Normal 80.0-100.0 [facility] Comment on above: Order Comment: Other , right weakness left gaze pref Performed By: #### 5 0608 ####[facility] PLAT CNT 204 Thou/mm3 Normal 100-400 [facility] Comment on above: Order Comment: Other , right weakness left gaze pref Performed By: #### 5 0608 ####[facility] [facility] WBC (Leukocytes) 5.1 Thou/mm3 Normal 4.0-10.0 [facility] Comment on above: Order Comment: Other , right weakness left gaze pref Performed By: #### 5 0608 ####[facility] [facility].[address] MAGNESIUM BLOODon 03-28-2017 Magnesium 2.2 mg/dL Normal 1.9-2.7 [facility] Comment on above: Order Comment: Other , right weakness left gaze pref Performed By: #### 1 0070, 43335 ####[facility] POC GLUCOSE LABon 03-28-2017 Glucose mass conc 248 mg/dL High 70-100 [facility] Comment on above: Performed By: #### 8 5499 ####[facility] Glucose mass conc 250 mg/dL High 70-100 [facility] Comment on above: Performed By: #### 8 5499 ####[facility] [facility].[address] Glucose mass conc 155 mg/dL High 70-100 [facility] Comment on above: Performed By: #### 8 5499 ####[facility] [facility] [place] [address], [facility] Glucose mass conc 160 mg/dL High 70-100 [facility] Comment on above: Performed By: #### 8 5499 ####[facility] [facility].[address] BASIC METABOLIC PANELon 10-0 Calcium 9.0 mg/dL Normal 8.6-10.3 [facility] Comment on above: Order Comment: Other , right weakness left gaze pref Performed By: #### 0 0071, 76819 ####[place] [address] [facility].[address] Chloride 101 mmol/L Normal 98-107 [facility] Comment on above: Order Comment: Other , right weakness left gaze pref Performed By: #### 0 0071, 05192 ####[facility] [facility].[address] CO2 26 mmol/L Normal 21-31 [facility] Comment on above: Order Comment: Other , right weakness left gaze pref Performed By: #### 0 0071, 82854 ####[place] [address] [facility].[address] Creatinine 0.93 mg/dL Normal 0.70-1.30 [facility] Comment on above: Order Comment: Other , right weakness left gaze pref Performed By: #### 0 0071, 47330 ####[place] [address] [facility].[address] eGFR (black) mL/min/{1.73_m2} Normal >60 [facility] Comment on above: Order Comment: Other , right weakness left gaze pref Performed By: #### 0 0071, 31760 ####[facility] [place] [address], [facility] eGFR (non-black) mL/min/{1.73_m2} Normal >60 Th e [facility] Comment on above: Order Comment: Other , right weakness left gaze pref Performed By: #### 0 0071, 72116 ####[facility] [place] [address], [facility] Glucose mass conc 178 mg/dL High 70-100 [facility] Comment on above: Order Comment: Other , right weakness left gaze pref Performed By: #### 0 0071, 87496 ####[facility] [place] [address], [facility] Potassium molar conc 3.8 mmol/L Normal 3.5-5.1 [facility] Comment on above: Order Comment: Other , right weakness left gaze pref Performed By: #### 0 0071, 81825 ####[facility] [place] [address], [facility] Sodium 138 mmol/L Normal 136-145 [facility] Comment on above: Order Comment: Other , right weakness left gaze pref Performed By: #### 0 0071, 65851 ####[facility] [place] [address], [facility] Urea nitrogen 27 mg/dL High 7-25 [facility] Comment on above: Order Comment: Other , right weakness left gaze pref Performed By: #### 0 0071, 83950 ####[facility] [place] [address], [facility] CBC COMPLETE BLOOD COUNTon Erythrocyte distribution width Auto Ratio (RBC) 12.9 % Normal 11.5-16.9 [facility] Comment on above: Order Comment: Other , right weakness left gaze pref Performed By: #### 5 0608 ####[facility] Erythrocytes (RBC) 4.45 mill/mm3 Normal 4.30-5.90 [facility] Comment on above: Order Comment: Other , right weakness left gaze pref Performed By: #### 5 0608 ####[facility] Hematocrit (HCT) 40.0 % Normal 39.0-55.0 [facility] Comment on above: Order Comment: Other , right weakness left gaze pref Performed By: #### 5 0608 ####[facility] Hemoglobin mass conc (Bld) 13.3 g/dL Low 13.9-16.3 [facility] Comment on above: Order Comment: Other , right weakness left gaze pref Performed By: #### 5 0608 ####[facility] [facility].[address] MCH 29.9 pg Normal 24.0-32.0 [facility] Comment on above: Order Comment: Other , right weakness left gaze pref Performed By: #### 5 0608 ####[facility] [facility].[address] MCHC mass conc (RBC) 33.3 g/dL Normal 32.0-36.0 [facility] Comment on above: Order Comment: Other , right weakness left gaze pref Performed By: #### 5 0608 ####[facility] MCV 89.8 fL Normal 80.0-100.0 [facility] Comment on above: Order Comment: Other , right weakness left gaze pref Performed By: #### 5 0608 ####[facility] [place] [address], [facility] PLAT CNT 224 Thou/mm3 Normal 100-400 [facility] Comment on above: Order Comment: Other , right weakness left gaze pref Performed By: #### 5 0608 ####[facility] [place] [address], [facility] WBC (Leukocytes) 7.0 Thou/mm3 Normal 4.0-10.0 [facility] Comment on above: Order Comment: Other , right weakness left gaze pref Performed By: #### 5 0608 ####[facility] [place] [address], [facility] MAGNESIUM BLOODon 03-27-2017 Magnesium 2.0 mg/dL Normal 1.9-2.7 [facility] Comment on above: Order Comment: Other , right weakness left gaze pref Performed By: #### 0 0071, 93154 ####[facility] [place] [address], [facility] POC GLUCOSE LABon 03-27-2017 Glucose mass conc 153 mg/dL High 70-100 [facility] Comment on above: Performed By: #### 8 5499 ####[facility] [place] [address], [facility] Glucose mass conc 203 mg/dL High 70-100 [facility] Comment on above: Performed By: #### 8 5499 ####[facility] [place] [address], [facility] Glucose mass conc 145 mg/dL High 70-100 [facility] Comment on above: Performed By: #### 8 5499 ####[facility] [place] [address], [facility] Glucose mass conc 175 mg/dL High 70-100 [facility] Comment on above: Performed By: #### 8 5499 ####[facility] [place] [address], [place] BASIC METABOLIC PANELon Calcium 9.1 mg/dL Normal 8.6-10.3 [facility] Comment on above: Order Comment: Other , right weakness left gaze pref Performed By: #### 0 0071 ####[facility] [place] [address], [facility] Chloride 101 mmol/L Normal 98-107 [facility] Comment on above: Order Comment: Other , right weakness left gaze pref Performed By: #### 0 0071 ####[facility] [place] [address], [facility] [place] CO2 25 mmol/L Normal 21-31 [facility] Comment on above: Order Comment: Other , right weakness left gaze pref Performed By: #### 0 0071 ####[facility] [place] [address], [facility] Creatinine 0.86 mg/dL Normal 0.70-1.30 [facility] Comment on above: Order Comment: Other , right weakness left gaze pref Performed By: #### 0 0071 ####[facility] eGFR (black) mL/min/{1.73_m2} Normal >60 [facility] Comment on above: Order Comment: Other , right weakness left gaze pref Performed By: #### 0 0071 ####[facility] eGFR (non-black) mL/min/{1.73_m2} Normal >60 [facility] Comment on above: Order Comment: Other , right weakness left gaze pref Performed By: #### 0 0071 ####[facility] [place] [address], [facility] Glucose mass conc 134 mg/dL High 70-100 [facility] Comment on above: Order Comment: Other , right weakness left gaze pref Performed By: #### 0 0071 ####[facility] [place] [address], [facility] Potassium molar conc 3.8 mmol/L Normal 3.5-5.1 [facility] Comment on above: Order Comment: Other , right weakness left gaze pref Performed By: #### 0 1 ####[facility] Sodium 139 mmol/L Normal 136-145 [facility] Comment on above: Order Comment: Other , right weakness left gaze pref Performed By: #### 0 1 ####[facility] Urea nitrogen 26 mg/dL High 7-25 [facility] Comment on above: Order Comment: Other , right weakness left gaze pref Performed By: #### 0 1 ####[facility] CBC W/DIFFon 03-26-2017 Basophils Auto #/vol (Bld) 0.1 % Normal 0.0-2.0 [facility] Comment on above: Order Comment: Other , right weakness left gaze pref Performed By: #### 5 102 ####[facility] Eosinophils/100 leukocytes 1.0 % Normal 0.0-5.0 [facility] Comment on above: Order Comment: Other , right weakness left gaze pref Performed By: #### 5 102 ####[facility] Erythrocyte distribution width Auto Ratio (RBC) 13.2 % Normal 11.5-16.9 [facility] Comment on above: Order Comment: Other , right weakness left gaze pref Performed By: #### 5 102 ####[facility] Erythrocytes (RBC) 4.70 mill/mm3 Normal 4.30-5.90 [facility] Comment on above: Order Comment: Other , right weakness left gaze pref Performed By: #### 5 102 ####[facility] [place] [address], [facility] Hematocrit (HCT) 42.4 % Normal 39.0-55.0 [facility] Comment on above: Order Comment: Other , right weakness left gaze pref Performed By: #### 5 0103 ####[facility] [place] [address], [facility] Hemoglobin mass conc (Bld) 14.1 g/dL Normal 13.9-16.3 [facility] Comment on above: Order Comment: Other , right weakness left gaze pref Performed By: #### 5 0103 ####[facility] [facility] [place] [address], [facility] Lymphocytes/100 leukocytes 11.7 % Low 20.0-40.0 [facility] Comment on above: Order Comment: Other , right weakness left gaze pref Performed By: #### 5 0103 ####[facility] [facility].[address] MCH 30.0 pg Normal 24.0-32.0 [facility] Comment on above: Order Comment: Other , right weakness left gaze pref Performed By: #### 5 0103 ####[facility] MCHC mass conc (RBC) 33.3 g/dL Normal 32.0-36.0 [facility] Comment on above: Order Comment: Other , right weakness left gaze pref Performed By: #### 5 0103 ####[facility] [place] [address], [facility] MCV 90.1 fL Normal 80.0-100.0 [facility] Comment on above: Order Comment: Other , right weakness left gaze pref Performed By: #### 5 3 ####[facility] [place] [address], [facility] METHOD Normal RBC Morphology Normal [facility] Comment on above: Order Comment: Other , right weakness left gaze pref Performed By: #### 5 0103 ####[facility] [place] [address], [facility] MONOS 12.4 % High 2-8 [facility] Comment on above: Order Comment: Other , right weakness left gaze pref Performed By: #### 5 0103 ####[facility] [place] [address], [place] Neutrophils/100 leukocytes 74.8 % High 50-70 [facility] Comment on above: Order Comment: Other , right weakness left gaze pref Performed By: #### 5 0103 ####[facility] [place] [address], [facility] PLAT CNT 202 Thou/mm3 Normal 100-400 [facility] Comment on above: Order Comment: Other , right weakness left gaze pref Performed By: #### 5 0103 ####[facility] [place] [address], [facility] WBC (Leukocytes) 8.6 Thou/mm3 Normal 4.0-10.0 [facility] Comment on above: Order Comment: Other , right weakness left gaze pref Performed By: #### 5 0103 ####[facility] [place] [address], [facility] POC GLUCOSE LABon 03-26-2017 Glucose mass conc 184 mg/dL High 70-100 [facility] Comment on above: Performed By: #### 8 5499 ####[facility] [place] [address], [facility] Glucose mass conc 211 mg/dL High 70-100 [facility] Comment on above: Performed By: #### 8 5499 ####[facility] [place] [address], [place] Glucose mass conc 126 mg/dL High 70-100 [facility] Comment on above: Performed By: #### 8 5499 ####[facility] [facility] [place] [address], [facility] Glucose mass conc 161 mg/dL High 70-100 [facility] Comment on above: Performed By: #### 8 5499 ####[facility] [place] [address], [facility] CBC W/DIFFon 03-25-2017 Basophils Auto #/vol (Bld) 0.2 % Normal 0.0-2.0 [facility] Comment on above: Order Comment: Other , right weakness left gaze pref Performed By: #### 5 3 ####[facility] [facility] [place] [address], [facility] Eosinophils/100 leukocytes 0.5 % Normal 0.0-5.0 [facility] Comment on above: Order Comment: Other , right weakness left gaze pref Performed By: #### 5 3 ####[facility] [facility].[address] Erythrocyte distribution width Auto Ratio (RBC) 13.0 % Normal 11.5-16.9 [facility] Comment on above: Order Comment: Other , right weakness left gaze pref Performed By: #### 5 3 ####[facility] [facility] [place] [address], [facility] Erythrocytes (RBC) 4.24 mill/mm3 Low 4.30-5.90 [facility] Comment on above: Order Comment: Other , right weakness left gaze pref Performed By: #### 5 3 ####[facility] [facility] [place] [address], [facility] Hematocrit (HCT) 38.1 % Low 39.0-55.0 [facility] Comment on above: Order Comment: Other , right weakness left gaze pref Performed By: #### 5 3 ####[facility] [place] [address], [facility] Hemoglobin mass conc (Bld) 12.9 g/dL Low 13.9-16.3 [facility] Comment on above: Order Comment: Other , right weakness left gaze pref Performed By: #### 5 0103 ####[facility] Lymphocytes/100 leukocytes 10.9 % Low 20.0-40.0 [facility] Comment on above: Order Comment: Other , right weakness left gaze pref Performed By: #### 5 0103 ####[facility] MCH 30.3 pg Normal 24.0-32.0 [facility] Comment on above: Order Comment: Other , right weakness left gaze pref Performed By: #### 5 3 ####[facility] MCHC mass conc (RBC) 33.7 g/dL Normal 32.0-36.0 [facility] Comment on above: Order Comment: Other , right weakness left gaze pref Performed By: #### 5 0103 ####[facility] MCV 89.9 fL Normal 80.0-100.0 [facility] Comment on above: Order Comment: Other , right weakness left gaze pref Performed By: #### 5 0103 ####[facility] METHOD Normal RBC Morphology Normal [facility] Comment on above: Order Comment: Other , right weakness left gaze pref Performed By: #### 5 3 ####[facility] [place] [address], [facility] MONOS 13.3 % High 2-8 [facility] Comment on above: Order Comment: Other , right weakness left gaze pref Performed By: #### 5 3 ####[facility] [place] [address], [facility] Neutrophils/100 leukocytes 75.1 % High 50-70 [facility] Comment on above: Order Comment: Other , right weakness left gaze pref Performed By: #### 5 0103 ####[facility] [place] [address], [facility] PLAT CNT 154 Thou/mm3 Normal 100-400 [facility] Comment on above: Order Comment: Other , right weakness left gaze pref Performed By: #### 5 0103 ####[facility] [place] [address], [facility] WBC (Leukocytes) 10.8 Thou/mm3 High 4.0-10.0 [facility] Comment on above: Order Comment: Other , right weakness left gaze pref Performed By: #### 5 0103 ####[facility] [place] [address], [facility] COMP METABOLIC PANELon 03-25 Alanine aminotransferase (ALT) 40 U/L Normal 7-52 [facility] Comment on above: Order Comment: Other , right weakness left gaze pref Performed By: #### 4 1000, 22908, 76873 ####[facility] [place] [address], [facility] Albumin 3.1 g/dL Low 3.5-5.7 [facility] Comment on above: Order Comment: Other , right weakness left gaze pref Performed By: #### 4 1000, 37043, 97497 ####[facility] [place] [address], [facility] ALKALINE PHOSPH 40 IU/L Normal 34-104 [facility] Comment on above: Order Comment: Other , right weakness left gaze pref Performed By: #### 4 1000, 05925, 21184 ####[facility] [place] [address], [facility] Aspartate aminotransferase (AST) 38 U/L Normal 13-39 [facility] Comment on above: Order Comment: Other , right weakness left gaze pref Performed By: #### 4 1000, 51534, 37307 ####[facility] [place] [address], [facility] Bilirubin (total) 0.7 mg/dL Normal 0.3-1.0 [facility] Comment on above: Order Comment: Other , right weakness left gaze pref Performed By: #### 4 1000, 96802, 75914 ####[facility] [place] [address], [facility] Calcium 8.7 mg/dL Normal 8.6-10.3 [facility] Comment on above: Order Comment: Other , right weakness left gaze pref Performed By: #### 4 1000, 85252, 18998 ####[facility] [place] [address], [facility] Chloride 102 mmol/L Normal 98-107 [facility] Comment on above: Order Comment: Other , right weakness left gaze pref Performed By: #### 4 1000, 74438, 48125 ####[facility] [place] [address], [facility] CO2 27 mmol/L Normal 21-31 [facility] Comment on above: Order Comment: Other , right weakness left gaze pref Performed By: #### 4 1000, 92722, 38441 ####[facility] [place] [address], [facility] Creatinine 0.85 mg/dL Normal 0.70-1.30 [facility] Comment on above: Order Comment: Other , right weakness left gaze pref Performed By: #### 4 1000, 79231, 67329 ####[facility] [place] [address], [facility] eGFR (black) mL/min/{1.73_m2} Normal >60 [facility] Comment on above: Order Comment: Other , right weakness left gaze pref Performed By: #### 4 1000, 20855, 32799 ####[facility] [place] [address], [facility] eGFR (non-black) mL/min/{1.73_m2} Normal >60 Th [facility] Comment on above: Order Comment: Other , right weakness left gaze pref Performed By: #### 4 1000, 58119, 07000 ####[facility] [place] [address], [facility] Glucose mass conc 134 mg/dL High 70-100 [facility] Comment on above: Order Comment: Other , right weakness left gaze pref Performed By: #### 4 1000, , 56911 ####[facility] [place] [address], [facility] Potassium molar conc 4.0 mmol/L Normal 3.5-5.1 [facility] Comment on above: Order Comment: Other , right weakness left gaze pref Performed By: #### 4 1000, 35537, 53986 ####[facility] [place] [address], [facility] Protein 6.0 g/dL Normal 6.0-8.3 [facility] Comment on above: Order Comment: Other , right weakness left gaze pref Performed By: #### 4 1000, 85648, 11400 ####[facility] [place] [address], [facility] Sodium 138 mmol/L Normal 136-145 [facility] Comment on above: Order Comment: Other , right weakness left gaze pref Performed By: #### 4 1000, 77725, 01268 ####[facility] [place] [address], [facility] Urea nitrogen 21 mg/dL Normal 7-25 [facility] Comment on above: Order Comment: Other , right weakness left gaze pref Performed By: #### 4 1000, 17250, 12917 ####[facility] [place] [address], [facility] KEPPRA ILon 03-25-2017 IL Normal [facility] Comment on above: Order Comment: Other , right weakness left gaze pref KEPPRA 19 ug/mL Normal [facility] Comment on above: Order Comment: Other [...] Magnesium 2.0 mg/dL Normal 1.9-2.7 [facility] Comment on above: Order Comment: Other , right weakness left gaze pref Performed By: #### 4 1000, 82308, 66528 ####[facility] [place] [address], [facility] PHOSPHORUS BLOODon 7 Phosphate 2.7 mg/dL Normal 2.5-5.0 [facility] Comment on above: Order Comment: Other , right weakness left gaze pref Performed By: #### 4 1000, 38273, 15809 ####[facility] [place] [address], [facility] POC GLUCOSE LABon 03-25-2017 Glucose mass conc 147 mg/dL High 70-100 [facility] Comment on above: Performed By: #### 8 5499 ####[facility] [place] [address], [facility] Glucose mass conc 132 mg/dL High 70-100 [facility] Comment on above: Performed By: #### 8 9259 ####[facility] [place] [address], [facility] ARTERIAL BLOOD GAS WITH ICAo n 03-24-2017 BASE EXCESS 3 mmol/L High -2-2 [facility] Comment on above: Performed By: #### 8 4511 ####[facility] [place] [address], [facility] Bicarbonate (HCO3) 26 mmol/L Normal 23-27 [facility] Comment on above: Performed By: #### 8 4511 ####[facility] [place] [address], [facility] CO2 37 mmHg Normal 35-45 [facility] Comment on above: Performed By: #### 8 4511 ####[facility] [place] [address], [facility] DELIVERY SYSTEMS MV Normal [facility] Comment on above: Performed By: #### 8 4511 ####[facility] [place] [address], [facility] FIO2 40 % Normal 21-100 [facility] Comment on above: Performed By: #### 8 4511 ####[facility] [place] [address], [facility] IONIZED CALCIUM 1.16 mmol/L Normal 1.13-1.32 [facility] Comment on above: Performed By: #### 8 4511 ####[facility] [place] [address], [place] MIN VOLUME 8.5 Normal [facility] Comment on above: Performed By: #### 8 4511 ####[facility] [place] [address], [facility] MODALITY AC Normal [facility] Comment on above: Performed By: #### 8 4511 ####[facility] [place] [address], [place] O2 saturation 94.6 % Normal 94.0-97.0 [facility] Comment on above: Performed By: #### 8 4511 ####[facility] [place] [address], [place] Oxygen in arterial blood 96 mm[Hg] Normal 75-100 [facility] Comment on above: Performed By: #### 8 4511 ####[facility] [place] [address], [facility] PEEP 5.0 CMH20 Normal [facility] Comment on above: Performed By: #### 8 4511 ####[facility] [place] [address], [facility] PF RATIO 240 mmHg Normal 50-400 [facility] Comment on above: Performed By: #### 8 4511 ####[facility] [place] [address], [facility] pH of blood 7.46 [pH] High 7.35-7.45 [facility] Comment on above: Performed By: #### 8 4511 ####[facility] [place] [address], [facility] Respiratory rate 14 /min Normal [facility] Comment on above: Performed By: #### 8 4511 ####[facility] TIDAL VOLUME (VT) CC 500 Normal [facility] Comment on above: Performed By: #### 8 4511 ####[facility] [place] [address], [facility] CBC W/DIFFon 03-24-2017 Basophils Auto #/vol (Bld) 0.1 % Normal 0.0-2.0 [facility] Comment on above: Order Comment: Other , right weakness left gaze pref Performed By: #### 5 0103 ####[facility] [place] [address], [facility] Eosinophils/100 leukocytes 1.0 % Normal 0.0-5.0 [facility] Comment on above: Order Comment: Other , right weakness left gaze pref Performed By: #### 5 0103 ####[facility] [place] [address], [place] Erythrocyte distribution width Auto Ratio (RBC) 13.5 % Normal 11.5-16.9 [facility] Comment on above: Order Comment: Other , right weakness left gaze pref Performed By: #### 5 0103 ####[facility] Erythrocytes (RBC) 4.30 mill/mm3 Normal 4.30-5.90 [facility] Comment on above: Order Comment: Other , right weakness left gaze pref Performed By: #### 5 0103 ####[facility] Hematocrit (HCT) 39.0 % Normal 39.0-55.0 [facility] Comment on above: Order Comment: Other , right weakness left gaze pref Performed By: #### 5 0103 ####[facility] Hemoglobin mass conc (Bld) 12.8 g/dL Low 13.9-16.3 [facility] Comment on above: Order Comment: Other , right weakness left gaze pref Performed By: #### 5 0103 ####[facility] [place] [address], [facility] Lymphocytes/100 leukocytes 11.1 % Low 20.0-40.0 [facility] Comment on above: Order Comment: Other , right weakness left gaze pref Performed By: #### 5 0103 ####[facility] [place] [address], [facility] MCH 29.9 pg Normal 24.0-32.0 [facility] Comment on above: Order Comment: Other , right weakness left gaze pref Performed By: #### 5 0103 ####[facility] [facility] [place] [address], [facility] MCHC mass conc (RBC) 32.9 g/dL Normal 32.0-36.0 [facility] Comment on above: Order Comment: Other , right weakness left gaze pref Performed By: #### 5 0103 ####[facility] [place] [address], [facility] MCV 90.7 fL Normal 80.0-100.0 [facility] Comment on above: Order Comment: Other , right weakness left gaze pref Performed By: #### 5 3 ####[facility] [place] [address], [facility] METHOD Normal RBC Morphology Normal [facility] Comment on above: Order Comment: Other , right weakness left gaze pref Performed By: #### 5 0103 ####[facility] MONOS 11.7 % High 2-8 [facility] Comment on above: Order Comment: Other , right weakness left gaze pref Performed By: #### 5 3 ####[facility] Neutrophils/100 leukocytes 76.1 % High 50-70 [facility] Comment on above: Order Comment: Other , right weakness left gaze pref Performed By: #### 5 0103 ####[facility] [place] [address], [facility] PLAT CNT 133 Thou/mm3 Normal 100-400 [facility] Comment on above: Order Comment: Other , right weakness left gaze pref Performed By: #### 5 3 ####[facility] [place] [address], [facility] WBC (Leukocytes) 9.2 Thou/mm3 Normal 4.0-10.0 [facility] Comment on above: Order Comment: Other , right weakness left gaze pref Performed By: #### 5 3 ####[facility] COMP METABOLIC PANELon 03-24 Alanine aminotransferase (ALT) 48 U/L Normal 7-52 [facility] Comment on above: Order Comment: Other , right weakness left gaze pref Performed By: #### 0 0121, 61554, 84116 ####[facility] [place] [address], [facility] Albumin 3.2 g/dL Low 3.5-5.7 [facility] Comment on above: Order Comment: Other , right weakness left gaze pref Performed By: #### 0 0121, 09728, 89842 ####[facility] [place] [address], [facility] ALKALINE PHOSPH 40 IU/L Normal 34-104 [facility] Comment on above: Order Comment: Other , right weakness left gaze pref Performed By: #### 0 0121, 50061, 29120 ####[facility] [facility] Aspartate aminotransferase (AST) 33 U/L Normal 13-39 [facility] Comment on above: Order Comment: Other , right weakness left gaze pref Performed By: #### 0 0121, 44920, 28948 ####[facility] [facility] [place] [address], [facility] Bilirubin (total) 0.6 mg/dL Normal 0.3-1.0 [facility] Comment on above: Order Comment: Other , right weakness left gaze pref Performed By: #### 0 0121, 66313, 51096 ####[facility] [place] [address], [facility] Calcium 8.7 mg/dL Normal 8.6-10.3 [facility] Comment on above: Order Comment: Other , right weakness left gaze pref Performed By: #### 0 0121, 33334, 18845 ####[facility] [place] [address], [facility] Chloride 104 mmol/L Normal 98-107 [facility] Comment on above: Order Comment: Other , right weakness left gaze pref Performed By: #### 0 0121, 26332, 31738 ####[facility] [place] [address], [facility] CO2 26 mmol/L Normal 21-31 [facility] Comment on above: Order Comment: Other , right weakness left gaze pref Performed By: #### 0 0121, 00843, 30210 ####[facility] [place] [address], [facility] Creatinine 0.80 mg/dL Normal 0.70-1.30 [facility] Comment on above: Order Comment: Other , right weakness left gaze pref Performed By: #### 0 0121, 43761, 57173 ####[facility] eGFR (black) mL/min/{1.73_m2} Normal >60 [facility] Comment on above: Order Comment: Other , right weakness left gaze pref Performed By: #### 0 0121, 36186, 62717 ####[facility] eGFR (non-black) mL/min/{1.73_m2} Normal >60 Th e [facility] Comment on above: Order Comment: Other , right weakness left gaze pref Performed By: #### 0 0121, 62466, 09588 ####[facility] Glucose mass conc 189 mg/dL High 70-100 [facility] Comment on above: Order Comment: Other , right weakness left gaze pref Performed By: #### 0 0121, 93470, 68911 ####[facility] [place] [address], [facility] Potassium molar conc 4.5 mmol/L Normal 3.5-5.1 [facility] Comment on above: Order Comment: Other , right weakness left gaze pref Performed By: #### 0 0121, 58902, 66928 ####[facility] [place] [address], [facility] Protein 6.1 g/dL Normal 6.0-8.3 [facility] Comment on above: Order Comment: Other , right weakness left gaze pref Performed By: #### 0 0121, 74886, 86929 ####[facility] [place] [address], [facility] Sodium 138 mmol/L Normal 136-145 [facility] Comment on above: Order Comment: Other , right weakness left gaze pref Performed By: #### 0 0121, 93331, 27827 ####[facility] [place] [address], [facility] Urea nitrogen 21 mg/dL Normal 7-25 [facility] Comment on above: Order Comment: Other , right weakness left gaze pref Performed By: #### 0 0121, 95485, 95760 ####[facility] MAGNESIUM BLOODon 03-24-2017 Magnesium 2.1 mg/dL Normal 1.9-2.7 [facility] Comment on above: Order Comment: Other , right weakness left gaze pref Performed By: #### 0 0121, 75413, 42590 ####[facility] [place] [address], [facility] PHOSPHORUS BLOODon 7 Phosphate 3.0 mg/dL Normal 2.5-5.0 [facility] Comment on above: Order Comment: Other , right weakness left gaze pref Performed By: #### 0 0121, 03538, 93718 ####[facility] [place] [address], [facility] POC GLUCOSE LABon 03-24-2017 Glucose mass conc 153 mg/dL High 70-100 [facility] Comment on above: Performed By: #### 8 5499 ####[facility] [place] [address], [facility] Glucose mass conc 191 mg/dL High 70-100 [facility] Comment on above: Performed By: #### 8 5499 ####[facility] ARTERIAL BLOOD GAS WITH ICAo n 03-23-2017 BASE EXCESS 1 mmol/L Normal -2-2 [facility] Comment on above: Performed By: #### 8 4511 ####[facility] Bicarbonate (HCO3) 26 mmol/L Normal 23-27 [facility] Comment on above: Performed By: #### 8 4511 ####[facility] CO2 40 mmHg Normal 35-45 [facility] Comment on above: Performed By: #### 8 4511 ####[facility] DELIVERY SYSTEMS MV Normal [facility] Comment on above: Performed By: #### 8 4511 ####[facility] [facility] FIO2 40 % Normal 21-100 [facility] Comment on above: Performed By: #### 8 4511 ####[facility] IONIZED CALCIUM 1.25 mmol/L Normal 1.13-1.32 [facility] Comment on above: Performed By: #### 8 4511 ####[facility] [place] [address], [facility] MIN VOLUME 8.0 Normal [facility] Comment on above: Performed By: #### 8 4511 ####[facility] [place] [address], [facility] MODALITY AC Normal [facility] Comment on above: Performed By: #### 8 4511 ####[facility] [place] [address], [facility] O2 saturation 95.3 % Normal 94.0-97.0 [facility] Comment on above: Performed By: #### 8 4511 ####[facility] [place] [address], [facility] Oxygen in arterial blood 96 mm[Hg] Normal 75-100 [facility] Comment on above: Performed By: #### 8 4511 ####[facility] [place] [address], [place] PEEP 5.0 CMH20 Normal [facility] Comment on above: Performed By: #### 8 4511 ####[facility] [place] [address], [place] pH of blood 7.42 [pH] Normal 7.35-7.45 [facility] Comment on above: Performed By: #### 8 4511 ####[facility] [place] [address], [place] Respiratory rate 14 /min Normal [facility] Comment on above: Performed By: #### 8 4511 ####[facility] [place] [address], [place] TIDAL VOLUME (VT) CC 500 Normal [facility] Comment on above: Performed By: #### 8 4511 ####[facility] [place] [address], [place] BASIC METABOLIC PANELon 10-0 Calcium 8.5 mg/dL Low 8.6-10.3 [facility] Comment on above: Order Comment: Other , right weakness left gaze pref Performed By: #### 0 0071, 62491, 43211 ####[facility] [place] [address], [place] Chloride 107 mmol/L Normal 98-107 [facility] Comment on above: Order Comment: Other , right weakness left gaze pref Performed By: #### 0 0071, 01325, 83296 ####[facility] CO2 25 mmol/L Normal 21-31 [facility] Comment on above: Order Comment: Other , right weakness left gaze pref Performed By: #### 0 0071, 54379, 20916 ####[facility] Creatinine 0.79 mg/dL Normal 0.70-1.30 [facility] Comment on above: Order Comment: Other , right weakness left gaze pref Performed By: #### 0 0071, 64879, 79435 ####[facility] eGFR (black) mL/min/{1.73_m2} Normal >60 [facility] Comment on above: Order Comment: Other , right weakness left gaze pref Performed By: #### 0 0071, 33604, 52893 ####[facility] [facility].[address] eGFR (non-black) mL/min/{1.73_m2} Normal >60 Th e [facility] Comment on above: Order Comment: Other , right weakness left gaze pref Performed By: #### 0 0071, 98883, 72844 ####[facility], [place] [address] [place] [address] Glucose mass conc 201 mg/dL High 70-100 [facility] Comment on above: Order Comment: Other , right weakness left gaze pref Performed By: #### 0 0071, 64469, 73647 ####[facility] Potassium molar conc 4.1 mmol/L Normal 3.5-5.1 [facility] Comment on above: Order Comment: Other , right weakness left gaze pref Performed By: #### 0 0071, 48984, 80584 ####[facility] Sodium 140 mmol/L Normal 136-145 [facility] Comment on above: Order Comment: Other , right weakness left gaze pref Performed By: #### 0 0071, 29510, 56224 ####[facility] Urea nitrogen 23 mg/dL Normal 7-25 [facility] Comment on above: Order Comment: Other , right weakness left gaze pref Performed By: #### 0 0071, 55639, 47427 ####[facility] CBC W/DIFFon 03-23-2017 Basophils Auto #/vol (Bld) 0.2 % Normal 0.0-2.0 [facility] Comment on above: Order Comment: Other , right weakness left gaze pref Performed By: #### 5 3 ####[facility] Eosinophils/100 leukocytes 2.1 % Normal 0.0-5.0 [facility] Comment on above: Order Comment: Other , right weakness left gaze pref Performed By: #### 5 3 ####[facility] [facility].[address] Erythrocyte distribution width Auto Ratio (RBC) 13.8 % Normal 11.5-16.9 [facility] Comment on above: Order Comment: Other , right weakness left gaze pref Performed By: #### 5 3 ####[facility] Erythrocytes (RBC) 4.08 mill/mm3 Low 4.30-5.90 [facility] Comment on above: Order Comment: Other , right weakness left gaze pref Performed By: #### 5 3 ####[facility] Hematocrit (HCT) 37.1 % Low 39.0-55.0 [facility] Comment on above: Order Comment: Other , right weakness left gaze pref Performed By: #### 5 3 ####[facility] Hemoglobin mass conc (Bld) 12.3 g/dL Low 13.9-16.3 [facility] Comment on above: Order Comment: Other , right weakness left gaze pref Performed By: #### 5 3 ####[facility] [facility].[address] Lymphocytes/100 leukocytes 16.1 % Low 20.0-40.0 [facility] Comment on above: Order Comment: Other , right weakness left gaze pref Performed By: #### 5 3 ####[facility] MCH 30.2 pg Normal 24.0-32.0 [facility] Comment on above: Order Comment: Other , right weakness left gaze pref Performed By: #### 5 3 ####[facility] MCHC mass conc (RBC) 33.2 g/dL Normal 32.0-36.0 [facility] Comment on above: Order Comment: Other , right weakness left gaze pref Performed By: #### 5 3 ####[facility] MCV 90.8 fL Normal 80.0-100.0 [facility] Comment on above: Order Comment: Other , right weakness left gaze pref Performed By: #### 5 3 ####[facility] [place] [address], [place] METHOD Normal RBC Morphology Normal [facility] Comment on above: Order Comment: Other , right weakness left gaze pref Performed By: #### 5 0103 ####[facility] [place] [address], [facility] MONOS 11.9 % High 2-8 [facility] Comment on above: Order Comment: Other , right weakness left gaze pref Performed By: #### 5 0103 ####[facility] [place] [address], [facility] Neutrophils/100 leukocytes 69.7 % Normal 50-70 [facility] Comment on above: Order Comment: Other , right weakness left gaze pref Performed By: #### 5 0103 ####[facility] [place] [address], [facility] PLAT CNT 124 Thou/mm3 Normal 100-400 [facility] Comment on above: Order Comment: Other , right weakness left gaze pref Performed By: #### 5 0103 ####[facility] [place] [address], [facility] WBC (Leukocytes) 5.8 Thou/mm3 Normal 4.0-10.0 [facility] Comment on above: Order Comment: Other , right weakness left gaze pref Performed By: #### 5 0103 ####[facility] [facility].[address] EEG Reporton 03-23-2017 [facility] [id number] Age: 61 Physician: Date: 03/23/2017 Lab#: Date of : 1955 Patient Type: I NEURODIAGNOSTIC SERVICES [id number] [place], [place] [address] Board of the [place] [employer] Accredited LaboratoryDate of : [birth year]Medical record number: [id number] lab November: M-20717 7Date of study: 03/23/2017Referring physician: Dr. Hoa Alvares WilliamHistory:This is a 61-year-old male with new onset seizure and fever. The study isto assist clinical diagnosis due to a concern of possible epilepticetiology.MEDICATION: Versed, KeppraTechnical Description:This is a continuous monitoring utilizing digital EEG, audio, and video [facility] inpatient. EEG electrodes was placed according [...] monitoring utilizing digital EEG, audio, and video [facility]. This record started at 06:30:27 hours on [...] 03/23/2017/02:40 P/Damián Olvera M.D.Date Trans: 03/23/2017 02:40 P/DN_JN:[id number]: Gasper Thurman D.O. [facility] [facility] [address] Normal [facility] [id number] Age: 61 Physician: Date: 03/23/2017 Lab#: Date of : 1955 Patient Type: I NEURODIAGNOSTIC SERVICES [id number], [place] [address] Board of the [place] [employer] Accredited LaboratoryDate of : 57Medical record number: [id number] lab November: M-17 Day 6Date of study: 03/22/2017 to 03/23/2017Referring physician: Dr. Hoa Alvares WilliamHistory:This is a 61-year-old male with new onset seizure and fever. The study isto assist clinical diagnosis due to a concern of possible epilepticetiology.MEDICATION: Versed, KeppraTechnical Description:This is a continuous monitoring utilizing digital EEG, audio, and video [facility]. EEG electrodes was placed according to International [...] monitoring utilizing digital EEG, audio, and video [facility]. This record started at 06:30:22 hours on [...] 03/23/2017/02:39 P/Damián Olvera M.D.Date Trans: 03/23/2017 02:39 P/DN_JN:[id number]: Gasper Thurman D.O. [address] [place] [address] Normal [facility] MAGNESIUM BLOODon 03-23-2017 Magnesium 2.1 mg/dL Normal 1.9-2.7 [facility] Comment on above: Order Comment: Other , right weakness left gaze pref Performed By: #### 0 0071, 81474, 12730 ####[place] [address] MRI BRAIN TEMPORAL LOBE W WO CONTRASTon 03-23-2017 MRI BRAIN TEMPORAL LOBE W WO CONTRAST [facility] [address] [place] [id number] Patient Name: REMINGTON BARKER : 1955Sex: MAge: Race: WhiteMRN: [id number]. Location: [id number] Status: IVisit #: [id number] Date: 03/22/2017 5:35:00 PMCompleted Date: 03/23/2017 03:58 PMRequesting Provider: MIKI SCOTT Attending Provider: ALEXI LOWERY Report Copy To: Signs & Symptoms: OtherHistory: Patient history not availableComments: Other, epilepsy with status epilepticus, MRI brain findings suggestive of MTLS.Exam: MRI BRAIN TEMPORAL LOBE W WO CONTRASTAccession #: [id number] MRI BRAIN TEMPORAL LOBE W WO CONTRAST [...] cells Electronically signed by:Giovanni Gabriel. Transcribed by: [email or web address], User Resident: Electronically Signed by: GIOVANNI GABRIEL @ 03/24/2017 09:41 AM Normal [facility] Comment on above: Order Comment: Other , right weakness left gaze pref MRI CERVICAL SPINE WO CONTRA STon 03-23-2017 MRI CERVICAL SPINE WO CONTRAST [facility] [address] [place] [address] Patient Name: REMINGTON BARKER : 1955Sex: MAge: Race: WhiteMRN: [id number]. Location: [id number] Status: IVisit #: [id number] Date: 03/19/2017 2:45:00 PMCompleted Date: 03/23/2017 03:58 PMRequesting Provider: JAVI BRASWELL Attending Provider: ALEXI LOWERY Report Copy To: Signs & Symptoms: Paralysis (specify)History: Patient history not availableComments: R/O Spinal Stenosis, right sided hemiparesis r/o cervical spine pathologyExam: MRI CERVICAL SPINE WO CONTRASTAccession #: [id number] MRI CERVICAL SPINE WO CONTRAST 03/23/2017 3:58 [...] C6-C7 Electronically signed by:Giovanni Gabriel. Transcribed by: [email or web address], User Resident: Electronically Signed by: GIOVANNI GABRIEL @ 03/24/2017 11:00 AM Normal [facility] Comment on above: Order Comment: Other , right weakness left gaze pref PHOSPHORUS BLOODon 7 Phosphate 2.8 mg/dL Normal 2.5-5.0 [facility] Comment on above: Order Comment: Other , right weakness left gaze pref Performed By: #### 0 0071, 54839, 42030 ####[facility] [facility] [place] [address], [facility] POC GLUCOSE LABon 03-23-2017 Glucose mass conc 176 mg/dL High 70-100 [facility] Comment on above: Performed By: #### 8 5499 ####[facility] [facility] [place] [address], [facility] Glucose mass conc 194 mg/dL High 70-100 [facility] Comment on above: Performed By: #### 8 5499 ####[facility] [facility] [place] [address], [facility] Glucose mass conc 195 mg/dL High 70-100 [facility] Comment on above: Performed By: #### 8 5499 ####[facility] [facility] [place] [address], [facility] Glucose mass conc 190 mg/dL High 70-100 [facility] Comment on above: Performed By: #### 8 5499 ####[facility] [facility] [place] [address], [facility] PORTABLE CHEST 1 VIEWon PORTABLE CHEST 1 VIEW [facility] [address] [place] [address] Patient Name: REMINGTON BARKER : 1955Sex: MAge: Race: WhiteMRN: [id number]. Location: [id number] Status: IVisit #: [id number] Date: 03/23/2017 5:00:00 AMCompleted Date: 03/23/2017 08:01 AMRequesting Provider: JEFF SANDOVAL Attending Provider: ALEXI LOWERY Report Copy To: Signs & Symptoms: Elevated WBCHistory: Patient history not availableComments: R/O PneumoniaExam: PORTABLE CHEST 1 VIEWAccession #: [id number] PORTAB LE CHEST 1 VIEW 03/23/2017 8:01 [...] findings. Electronically signed by:Giovanni Gabriel. Transcribed by: [email or web address], User Resident: TETE DEL VALLEElectronically Signed by: GIOVANNI GABRIEL @ 03/23/2017 01:07 PMI personally read this/these film(s) with this resident Normal [facility] Comment on above: Order Comment: Other , right weakness left gaze pref ARTERIAL BLOOD GAS WITH ICAo n 03-22-2017 BASE EXCESS 2 mmol/L Normal -2-2 [facility] Comment on above: Performed By: #### 8 4511 ####[facility] [place] [address], [place] Bicarbonate (HCO3) 26 mmol/L Normal 23-27 [facility] Comment on above: Performed By: #### 8 4511 ####[facility] [place] [address], [place] CO2 38 mmHg Normal 35-45 [facility] Comment on above: Performed By: #### 8 4511 ####[facility] [place] [address], [place] DELIVERY SYSTEMS MV Normal [facility] Comment on above: Performed By: #### 8 4511 ####[facility] [place] [address], [place] FIO2 40 % Normal 21-100 [facility] Comment on above: Performed By: #### 8 4511 ####[facility] [place] [address], [place] IONIZED CALCIUM 1.18 mmol/L Normal 1.13-1.32 [facility] Comment on above: Performed By: #### 8 4511 ####[facility] [place] [address], [place] MIN VOLUME 8.6 Normal [facility] Comment on above: Performed By: #### 8 4511 ####[facility] [place] [address], [place] MODALITY AC Normal [facility] Comment on above: Performed By: #### 8 4511 ####[facility] [place] [address], [place] O2 saturation 93.1 % Low 94.0-97.0 [facility] Comment on above: Performed By: #### 8 4511 ####[facility] [place] [address], [place] Oxygen in arterial blood 70 mm[Hg] Low 75-100 [facility] Comment on above: Performed By: #### 8 4511 ####[facility] [place] [address], [facility] PEEP 5.0 CMH20 Normal [facility] Comment on above: Performed By: #### 8 4511 ####[facility] [place] [address], [facility] pH of blood 7.44 [pH] Normal 7.35-7.45 [facility] Comment on above: Performed By: #### 8 4511 ####[facility] [place] [address], [facility] Respiratory rate 14 /min Normal [facility] Comment on above: Performed By: #### 8 4511 ####[facility] TIDAL VOLUME (VT) CC 500 Normal [facility] Comment on above: Performed By: #### 8 4511 ####[facility] [place] [address], [facility] BASIC METABOLIC PANELon 09-3 Calcium 8.2 mg/dL Low 8.6-10.3 [facility] Comment on above: Order Comment: No: D o not add to previous draw Performed By: #### 1 0070, 69881, 64713 ####[facility] [place] [address], [facility] Chloride 107 mmol/L Normal 98-107 [facility] Comment on above: Order Comment: No: D o not add to previous draw Performed By: #### 1 0070, 02290, 92365 ####[facility] [place] [address], [facility] CO2 25 mmol/L Normal 21-31 [facility] Comment on above: Order Comment: No: D o not add to previous draw Performed By: #### 1 0, 39812, 17615 ####[facility] [place] [address], [facility] Creatinine 0.71 mg/dL Normal 0.70-1.30 [facility] Comment on above: Order Comment: No: D o not add to previous draw Performed By: #### 1 0, 23682, 33659 ####[facility] [place] [address], [facility] eGFR (black) mL/min/{1.73_m2} Normal >60 [facility] Comment on above: Order Comment: No: D o not add to previous draw Performed By: #### 1 0, 02549, 58096 ####[facility] [facility] [place] [address], [facility] eGFR (non-black) mL/min/{1.73_m2} Normal >60 Th [facility] Comment on above: Order Comment: No: D o not add to previous draw Performed By: #### 1 0, 77547, 37735 ####[facility] [facility] [place] [address], [facility] Glucose mass conc 187 mg/dL High 70-100 [facility] Comment on above: Order Comment: No: D o not add to previous draw Performed By: #### 1 0, 31057, 46008 ####[facility] [place] [address], [facility] Potassium molar conc 4.0 mmol/L Normal 3.5-5.1 [facility] Comment on above: Order Comment: No: D o not add to previous draw Performed By: #### 1 0, 95912, 74040 ####[facility] [id number], [facility] Sodium 141 mmol/L Normal 136-145 [facility] Comment on above: Order Comment: No: D o not add to previous draw Performed By: #### 1 0070, 65768, 10073 ####[facility] [facility].[address] Urea nitrogen 20 mg/dL Normal 7-25 [facility] Comment on above: Order Comment: No: D o not add to previous draw Performed By: #### 1 0070, 36712, 21583 ####[facility] [facility].[address] CBC W/DIFFon 03-22-2017 Basophils Auto #/vol (Bld) 0.0 % Normal 0.0-2.0 [facility] Comment on above: Order Comment: No: D o not add to previous draw Performed By: #### 5 0103 ####[address] Eosinophils/100 leukocytes 1.1 % Normal 0.0-5.0 [facility] Comment on above: Order Comment: No: D o not add to previous draw Performed By: #### 5 0103 ####[address] Erythrocyte distribution width Auto Ratio (RBC) 13.7 % Normal 11.5-16.9 [facility] Comment on above: Order Comment: No: D o not add to previous draw Performed By: #### 5 0103 ####[place] [id number] [facility].[address] Erythrocytes (RBC) 4.12 mill/mm3 Low 4.30-5.90 [facility] Comment on above: Order Comment: No: D o not add to previous draw Performed By: #### 5 0103 ####[address] Hematocrit (HCT) 37.1 % Low 39.0-55.0 [facility] Comment on above: Order Comment: No: D o not add to previous draw Performed By: #### 5 0103 ####[facility] Hemoglobin mass conc (Bld) 12.4 g/dL Low 13.9-16.3 [facility] Comment on above: Order Comment: No: D o not add to previous draw Performed By: #### 5 0103 ####[facility] Lymphocytes/100 leukocytes 16.3 % Low 20.0-40.0 [facility] Comment on above: Order Comment: No: D o not add to previous draw Performed By: #### 5 0103 ####[facility] [facility].[address] MCH 30.0 pg Normal 24.0-32.0 [facility] Comment on above: Order Comment: No: D o not add to previous draw Performed By: #### 5 0103 ####[facility] [facility].[address] MCHC mass conc (RBC) 33.4 g/dL Normal 32.0-36.0 [facility] Comment on above: Order Comment: No: D o not add to previous draw Performed By: #### 5 0103 ####[facility] [facility].[address] MCV 90.1 fL Normal 80.0-100.0 [facility] Comment on above: Order Comment: No: D o not add to previous draw Performed By: #### 5 0103 ####[facility] [facility].[address] METHOD Normal RBC Morphology Normal [facility] Comment on above: Order Comment: No: D o not add to previous draw Performed By: #### 5 3 ####[facility] MONOS 12.1 % High 2-8 [facility] Comment on above: Order Comment: No: D o not add to previous draw Performed By: #### 5 0103 ####[place] [id number] [facility] [place] [address], [facility] Neutrophils/100 leukocytes 70.5 % High 50-70 [facility] Comment on above: Order Comment: No: D o not add to previous draw Performed By: #### 5 0103 ####[facility] [facility] [place] [address], [facility] PLAT CNT 120 Thou/mm3 Normal 100-400 [facility] Comment on above: Order Comment: No: D o not add to previous draw Performed By: #### 5 0103 ####[facility] [facility] [place] [address], [facility] WBC (Leukocytes) 4.7 Thou/mm3 Normal 4.0-10.0 [facility] Comment on above: Order Comment: No: D o not add to previous draw Performed By: #### 5 0103 ####[address] EEG Reporton 03-22-2017 [facility] [id number] Age: 61 Physician: Date: 03/22/2017 Lab#: Date of : 1955 Patient Type: I [employer] [id number] [place], [place] [address] Board of the [place] [employer] Accredited LaboratoryDate of : [birth year]Medical record number: [id number] lab November: [id number] Day 5Date of study: 03/21/2017 to 03/22/2017Referring physician: Dr. Hoa Alvares WilliamHistory:This is a 61-year-old male with new onset seizure and fever. The study isto assist clinical diagnosis due to a concern of possible epilepticetiology.MEDICATION: Versed, KeppraTechnical Description:This is a continuous monitoring utilizing digital EEG, audio, and video [facility]. EEG electrodes was placed according to International [...] monitoring utilizing digital EEG, audio, and video [facility]. This record started at 06:30:23 hours on [...] frequency of the 12-14 Hz since amplitude [id number] V were frequently noticed as brief segments [...] 03/22/2017/03:50 P/Damián Olvera M.D.Date Trans: 03/22/2017 03:50 P/EPHRAIM_[id number]: Gasper Thurman D.O. [address] [place] [address] [address] [facility] [phone] Normal [facility] [id number] Age: 61 Physician: Date: 03/20/2017 To 03/21/2017 Lab#: [id number], day #4. Date of : 1955 Patient Type: I NEURODIAGNOSTIC SERVICES [id number] [place], [place] [address] Board of the [place] [employer] Accredited LaboratoryREFERRING PHYSICIAN: Hoa Chanel M.D. Ph.D.HISTORY: This video/EEG continuous monitoring is performed on [id number] male with a history of seizures, who [...] Trans: 03/22/2017 02:11 A/mmoDate Revised: 03/24/2017 10:30 A/[id number]: Gasper Thurman D.O. [address] [place] [id number] Normal [facility] LACTATE BLOODon 03-22-2017 Lactate 0.7 mmol/L Normal .5-2.2 [facility] Comment on above: Order Comment: Other , right weakness left gaze pref Performed By: #### 1 0054 ####[facility] [place] [address], [facility] MAGNESIUM BLOODon 03-22-2017 Magnesium 2.2 mg/dL Normal 1.9-2.7 [facility] Comment on above: Order Comment: No: D o not add to previous draw Performed By: #### 1 0070, 86364, 99765 ####[facility] [facility] [place] [address], [facility] OSMOLALITY BLOODon 7 Osmolality 308 mOsm/kg High 285-305 [facility] Comment on above: Order Comment: Other , right weakness left gaze pref Performed By: #### 1 0088, 65411 ####[facility] [facility] [place] [address], [facility] PHOSPHORUS BLOODon 7 Phosphate 2.2 mg/dL Low 2.5-5.0 [facility] Comment on above: Order Comment: No: D o not add to previous draw Performed By: #### 1 0070, 32005, 47025 ####[facility] [place] [address], [facility] POC GLUCOSE LABon 03-22-2017 Glucose mass conc 194 mg/dL High 70-100 [facility] Comment on above: Performed By: #### 8 5499 ####[facility] [facility] [place] [address], [facility] Glucose mass conc 194 mg/dL High 70-100 [facility] Comment on above: Performed By: #### 8 5499 ####[facility] [facility] [place] [address], [facility] Glucose mass conc 195 mg/dL High 70-100 [facility] Comment on above: Performed By: #### 8 5499 ####[facility] [facility] [place] [address], [facility] Glucose mass conc 195 mg/dL High 70-100 [facility] Comment on above: Performed By: #### 8 5499 ####[facility] [facility] [place] [address], [facility] TRIGLYCERIDES BLOODon 2016 Triglyceride 152 mg/dL High 40-149 [facility] Comment on above: Order Comment: Other , right weakness left gaze pref Result Comment: TRIG LYCERIDE REFERENCE RANGE:20 YEARS AND OLDER CARDIOVASCULAR RISKLESS THAN 150 mg/dl LOW [id number] TO 199 mg/dl BORDERLINE [id number] mg/dl AND GREATER HIGH RISK Performed By: #### 1 0088, 92349 ####[facility] [facility] [place] [address], [facility] AMMONIA BLOODon 03-21-2017 Ammonia 72 umol/L High 16-53 [facility] Comment on above: Order Comment: No: D o not add to previous drawNurse draw per TEJ Canales. Performed By: #### 0 0121, 59597, 19445, 03001 ####[facility] [facility] [place] [address], [facility] ARTERIAL BLOOD GAS WITH ICAo n 03-21-2017 BASE EXCESS -1 mmol/L Normal -2-2 [facility] Comment on above: Performed By: #### 0 0121, 17267, 95975, 10687 ####[facility] [place] [address], [facility] Bicarbonate (HCO3) 24 mmol/L Normal 23-27 [facility] Comment on above: Performed By: #### 0 0121, 63238, 82272, 78516 ####[facility] [place] [address], [facility] CO2 38 mmHg Normal 35-45 [facility] Comment on above: Performed By: #### 0 0121, 14289, 39386, 53338 ####[facility] [place] [address], [facility] DELIVERY SYSTEMS MV Normal [facility] Comment on above: Performed By: #### 0 0121, 14485, 54539, 73785 ####[facility] [place] [address], [facility] FIO2 40 % Normal 21-100 [facility] Comment on above: Performed By: #### 0 0121, 68033, 64179, 83100 ####[facility] [place] [address], [facility] IONIZED CALCIUM 1.22 mmol/L Normal 1.13-1.32 [facility] Comment on above: Performed By: #### 0 0121, 09386, 55056, 57831 ####[facility] [place] [address], [place] MIN VOLUME 8.8 Normal [facility] Comment on above: Performed By: #### 0 0121, 16851, 28654, 40704 ####[facility] [place] [address], [place] MODALITY AC Normal [facility] Comment on above: Performed By: #### 0 0121, 10975, 92414, 44207 ####[facility] [place] [address], [place] O2 saturation 94.6 % Normal 94.0-97.0 [facility] Comment on above: Performed By: #### 0 0121, 76030, 93533, 12504 ####[facility] [place] [address], [place] Oxygen in arterial blood 90 mm[Hg] Normal 75-100 [facility] Comment on above: Performed By: #### 0 0121, 95163, 67527, 04926 ####[facility] [place] [address], [place] PEEP 5.0 CMH20 Normal [facility] Comment on above: Performed By: #### 0 0121, 16085, 80385, 32856 ####[facility] [place] [address], [place] PF RATIO 225 mmHg Normal 50-400 [facility] Comment on above: Performed By: #### 0 0121, 23362, 64831, 65004 ####[facility] [place] [address], [place] pH of blood 7.40 [pH] Normal 7.35-7.45 [facility] Comment on above: Performed By: #### 0 0121, 41298, 61468, 28133 ####[facility] [place] [address], [place] Respiratory rate 14 /min Normal [facility] Comment on above: Performed By: #### 0 0121, 18688, 62595, 43850 ####[facility] [place] [address], [place] TIDAL VOLUME (VT) CC 500 Normal [facility] Comment on above: Performed By: #### 0 0121, 33807, 60427, 24216 ####[facility] BASIC METABOLIC PANELon 09-2 Calcium 8.2 mg/dL Low 8.6-10.3 [facility] Comment on above: Order Comment: No: D o not add to previous draw Performed By: #### 0 0121, 08390, 50051, 70253 ####[facility] [place] [address], [facility] Chloride 106 mmol/L Normal 98-107 [facility] Comment on above: Order Comment: No: D o not add to previous draw Performed By: #### 0 0121, 60363, 74674, 30983 ####[facility] [place] [address], [facility] CO2 24 mmol/L Normal 21-31 [facility] Comment on above: Order Comment: No: D o not add to previous draw Performed By: #### 0 0121, 25706, 53090, 34140 ####[facility] Creatinine 0.80 mg/dL Normal 0.70-1.30 [facility] Comment on above: Order Comment: No: D o not add to previous draw Performed By: #### 0 0121, 25473, 45186, 83108 ####[facility] eGFR (black) mL/min/{1.73_m2} Normal >60 [facility] Comment on above: Order Comment: No: D o not add to previous draw Performed By: #### 0 0121, 45306, 17665, 62582 ####[facility] eGFR (non-black) mL/min/{1.73_m2} Normal >60 Th [facility] Comment on above: Order Comment: No: D o not add to previous draw Performed By: #### 0 0121, 95695, 37224, 16093 ####[facility] [facility] [place] [address], [facility] Glucose mass conc 153 mg/dL High 70-100 [facility] Comment on above: Order Comment: No: D o not add to previous draw Performed By: #### 0 0121, 69062, 80181, 94204 ####[facility] [place] [address], [facility] Potassium molar conc 3.9 mmol/L Normal 3.5-5.1 [facility] Comment on above: Order Comment: No: D o not add to previous draw Performed By: #### 0 0121, 68502, 54204, 80552 ####[facility] [facility].[address] Sodium 142 mmol/L Normal 136-145 [facility] Comment on above: Order Comment: No: D o not add to previous draw Performed By: #### 0 0121, 56161, 25193, 60692 ####[facility] [facility] [place] [address], [facility] Urea nitrogen 19 mg/dL Normal 7-25 [facility] Comment on above: Order Comment: No: D o not add to previous draw Performed By: #### 0 0121, 04532, 66283, 11659 ####[facility] [place] [address], [facility] Calcium CANCELED Normal 8.6-10.3 [facility] Comment on above: Order Comment: No: D o not add to previous draw Result Comment: M-CR ITICAL RESULT(S) REVIEWED, CALLED TO AND READ BACK BY SEMAJ Mcgregor RN @[id number] released value 5.9 was canceled by [email or web address] on 03/21/2017 05:01 Performed By: #### 0 0121, 56470, 16756, 02712 ####[facility] [place] [address], [facility] Chloride CANCELED Normal 98-107 [facility] Comment on above: Order Comment: No: D o not add to previous draw Result Comment: The released value 77 was canceled by [email or web address] on 03/21/2017 05:01 Performed By: #### 0 0121, 08811, 35734, 81385 ####[facility] [place] [address], [facility] CO2 CANCELED Normal 21-31 [facility] Comment on above: Order Comment: No: D o not add to previous draw Result Comment: The released value 19 was canceled by [email or web address] on 03/21/2017 05:01 Performed By: #### 0 0121, 52861, 11763, 61295 ####[facility] [place] [address], [facility] Creatinine CANCELED Normal 0.70-1.30 [facility] Comment on above: Order Comment: No: D o not add to previous draw Result Comment: The released value 0.51 was canceled by [email or web address] on 03/21/2017 05:01 Performed By: #### 0 0121, 74031, 67150, 00142 ####[facility] [place] [address], [facility] eGFR (black) CANCELED Normal >60 [facility] Comment on above: Order Comment: No: D o not add to previous draw Result Comment: The released value >60 was canceled by [email or web address] on 03/21/2017 05:01 Performed By: #### 0 0121, 04201, 48471, 60977 ####[facility] [place] [address], [facility] eGFR (non-black) CANCELED Normal >60 [facility] Comment on above: Order Comment: No: D o not add to previous draw Result Comment: The released value >60 was canceled by [email or web address] on 03/21/2017 05:01 Performed By: #### 0 0121, 63846, 63818, 34468 ####[facility] [place] [address], [facility] Glucose mass conc CANCELED Normal 70-100 [facility] Comment on above: Order Comment: No: D o not add to previous draw Result Comment: The released value 145 was canceled by [email or web address] on 03/21/2017 05:01 Performed By: #### 0 0121, 74630, 30548, 37196 ####[facility] [place] [address], [facility] Potassium molar conc CANCELED Normal 3.5-5.1 [facility] Comment on above: Order Comment: No: D o not add to previous draw Result Comment: The released value 2.7 was canceled by [email or web address] on 03/21/2017 05:01 Performed By: #### 0 0121, 04350, 93691, 27250 ####[facility] [place] [address], [facility] Sodium CANCELED Normal 136-145 [facility] Comment on above: Order Comment: No: D o not add to previous draw Result Comment: M-CR ITICAL RESULT(S) REVIEWED, CALLED TO AND READ BACK BY SEMAJ Mcgregor RN @0441The released value 90 was canceled by [email or web address] on 03/21/2017 05:01 Performed By: #### 0 0121, 51225, 07755, 66068 ####[facility] [place] [address], [place] Urea nitrogen CANCELED Normal 7-25 [facility] Comment on above: Order Comment: No: D o not add to previous draw Result Comment: The released value 18 was canceled by [email or web address] on 03/21/2017 05:01 Performed By: #### 0 0121, 43633, 49842, 57321 ####[facility] CBC W/DIFFon 03-21-2017 Basophils Auto #/vol (Bld) 0.0 % Normal 0.0-2.0 [facility] Comment on above: Order Comment: No: D o not add to previous draw Performed By: #### 0 0121, 24991, 44193, 16912 ####[facility] [facility].[address] Eosinophils/100 leukocytes 0.7 % Normal 0.0-5.0 [facility] Comment on above: Order Comment: No: D o not add to previous draw Performed By: #### 0 0121, 78570, 72938, 25397 ####[facility] [facility].[address] Erythrocyte distribution width Auto Ratio (RBC) 13.7 % Normal 11.5-16.9 [facility] Comment on above: Order Comment: No: D o not add to previous draw Performed By: #### 0 0121, 73325, 28136, 51021 ####[facility] [facility].[address] Erythrocytes (RBC) 4.23 mill/mm3 Low 4.30-5.90 [facility] Comment on above: Order Comment: No: D o not add to previous draw Performed By: #### 0 0121, 25994, 96982, 97399 ####[facility] [facility].[address] Hematocrit (HCT) 38.5 % Low 39.0-55.0 [facility] Comment on above: Order Comment: No: D o not add to previous draw Performed By: #### 0 0121, 33184, 15204, 52031 ####[facility] Hemoglobin mass conc (Bld) 12.8 g/dL Low 13.9-16.3 [facility] Comment on above: Order Comment: No: D o not add to previous draw Performed By: #### 0 0121, 35882, 17716, 29628 ####[facility] [facility] Lymphocytes/100 leukocytes 14.5 % Low 20.0-40.0 [facility] Comment on above: Order Comment: No: D o not add to previous draw Performed By: #### 0 0121, 95837, 22110, 25587 ####[facility] MCH 30.2 pg Normal 24.0-32.0 [facility] Comment on above: Order Comment: No: D o not add to previous draw Performed By: #### 0 0121, 96550, 66975, 14189 ####[facility] [facility].[address] MCHC mass conc (RBC) 33.2 g/dL Normal 32.0-36.0 [facility] Comment on above: Order Comment: No: D o not add to previous draw Performed By: #### 0 0121, 66733, 84019, 05046 ####[facility] [facility].[address] MCV 90.9 fL Normal 80.0-100.0 [facility] Comment on above: Order Comment: No: D o not add to previous draw Performed By: #### 0 0121, 43129, 46642, 56058 ####[facility] [facility] [place] [address], [facility] METHOD Normal RBC Morphology Normal [facility] Comment on above: Order Comment: No: D o not add to previous draw Performed By: #### 0 0121, 53282, 37171, 55450 ####[facility] [place] [address], [facility] MONOS 9.4 % High 2-8 [facility] Comment on above: Order Comment: No: D o not add to previous draw Performed By: #### 0 0121, 58305, 30989, 92040 ####[facility] [facility] [place] [address], [facility] Neutrophils/100 leukocytes 75.4 % High 50-70 [facility] Comment on above: Order Comment: No: D o not add to previous draw Performed By: #### 0 0121, 25128, 15552, 44311 ####[facility] [facility] [place] [address], [facility] PLAT CNT 126 Thou/mm3 Normal 100-400 [facility] Comment on above: Order Comment: No: D o not add to previous draw Performed By: #### 0 0121, 32169, 34755, 34541 ####[facility] [facility].[address] WBC (Leukocytes) 5.8 Thou/mm3 Normal 4.0-10.0 [facility] Comment on above: Order Comment: No: D o not add to previous draw Performed By: #### 0 0121, 75049, 72799, 33755 ####[facility] [facility].[address] EEG Reporton 03-21-2017 EEG Report Name: [facility] MR#: [id number] Age: 61 Physician: Hoa Chanel M.D. Ph.D Date: 03/19/2017-03/20/2017 Lab#: [id number], day 3 Date of : 1955 Patient Type: I NEURODI[employer]NOSTIC [employer] [id number] [place], [place] [address] Board of the [place] [employer] Accredited LaboratoryHISTORY: This video/EEG continuous monitoring is performed on [id number] man with a history of epilepsy, admitted [...] Jeovanny/Hoa Chanel M.D. Ph.DDate Trans: 03/21/2017 05:37 A/[id number]: Gasper Thurman D.O. [address] [place] [phone] Hoa Chanel M.D. Ph.D Department Of Neurology [address] [place] [address] Normal [facility] LACTATE BLOODon 03-21-2017 Lactate 0.7 mmol/L Normal .5-2.2 [facility] Comment on above: Order Comment: No: D o not add to previous draw Performed By: #### 0 0121, 67596, 46850, 68803 ####[facility] [place] [address], [facility] LIVER BATTERYon 03-21-2017 Alanine aminotransferase (ALT) 32 U/L Normal 7-52 [facility] Comment on above: Order Comment: No: D o not add to previous draw Performed By: #### 0 0121, 46406, 44822, 25860 ####[facility] [place] [address], [facility] Albumin 3.0 g/dL Low 3.5-5.7 [facility] Comment on above: Order Comment: No: D o not add to previous draw Performed By: #### 0 0121, 54004, 82553, 06189 ####[facility] [facility] [place] [address], [facility] ALKALINE PHOSPH 34 IU/L Normal 34-104 [facility] Comment on above: Order Comment: No: D o not add to previous draw Performed By: #### 0 0121, 42604, 92851, 76005 ####[facility] [facility].[address] Aspartate aminotransferase (AST) 20 U/L Normal 13-39 [facility] Comment on above: Order Comment: No: D o not add to previous draw Performed By: #### 0 0121, 81241, 78681, 50841 ####[facility] [place] [address], [facility] Bilirubin (direct) 0.1 mg/dL Normal 0.0-0.2 [facility] Comment on above: Order Comment: No: D o not add to previous draw Performed By: #### 0 0121, 73608, 85471, 34121 ####[facility] [facility] [place] [address], [facility] Bilirubin (total) 0.5 mg/dL Normal 0.3-1.0 [facility] Comment on above: Order Comment: No: D o not add to previous draw Performed By: #### 0 0121, 93736, 88404, 52299 ####[facility] [facility] [place] [address], [facility] Protein 5.5 g/dL Low 6.0-8.3 [facility] Comment on above: Order Comment: No: D o not add to previous draw Performed By: #### 0 0121, 24160, 79162, 13484 ####[facility] [facility] [place] [address], [facility] MAGNESIUM BLOODon 03-21-2017 Magnesium 2.2 mg/dL Normal 1.9-2.7 [facility] Comment on above: Order Comment: This order is a replacement of the rejected order with accession [id number]. Performed By: #### 0 0121, 41101, 67684, 03615 ####[facility] [facility] [place] [place] [address], [facility] Magnesium CANCELED Normal 1.9-2.7 [facility] Comment on above: Order Comment: No: D o not add to previous draw Result Comment: The released value 2.4 was canceled by [email or web address] on 03/21/2017 05:02 Performed By: #### 0 0121, 13356, 84986, 61747 ####[facility] [place] [address], [place] PHOSPHORUS BLOODon 7 Phosphate 2.5 mg/dL Normal 2.5-5.0 [facility] Comment on above: Order Comment: This order is a replacement of the rejected order with accession [id number]. Performed By: #### 0 0121, 00738, 19681, 10172 ####[facility] [place] [address], [facility] Phosphate CANCELED Normal 2.5-5.0 [facility] Comment on above: Order Comment: No: D o not add to previous draw Result Comment: The released value <1.0 was canceled by [email or web address] on 03/21/2017 05:02 Performed By: #### 0 0121, 35661, 20026, 22068 ####[facility] [place] [address], [place] POC GLUCOSE LABon 03-21-2017 Glucose mass conc 122 mg/dL High 70-100 [facility] Comment on above: Performed By: #### 0 0121, 22586, 23451, 57124 ####[facility] [place] [address], [place] Glucose mass conc 148 mg/dL High 70-100 [facility] Comment on above: Performed By: #### 0 0121, 43270, 13548, 29706 ####[facility] [place] [address], [place] Glucose mass conc 124 mg/dL High 70-100 [facility] Comment on above: Performed By: #### 0 0121, 85381, 74606, 62191 ####[facility] [place] [address], [place] TSH WITH REFLEXon 03-21-2017 [place] CANCELED Normal [facility] Comment on above: Order Comment: No: D o not add to previous drawTSH with Reflex canceled. TSH ordered. Performed By: #### 0 0121, 16611, 81880, 49018 ####[facility] Thyroid stimulating hormone (TSH) CANCELED Normal 0.34-5.60 [facility] Comment on above: Order Comment: No: D o not add to previous drawTSH with Reflex canceled. TSH ordered. Result Comment: The released value 0.25 was canceled by NAYELY on 03/21/2017 20:25 Performed By: #### 0 0121, 82060, 38842, 99931 ####[facility] Thyroxine (T4) free CANCELED Normal [facility] Comment on above: Order Comment: No: D o not add to previous drawTSH with Reflex canceled. TSH ordered. Performed By: #### 0 0121, 48536, 98328, 75632 ####[facility] [facility].[address] VITAMIN B12on 03-21-2017 Cobalamins (Vitamin B12) 388 pg/mL Normal 180-914 [facility] Comment on above: Order Comment: No: D o not add to previous draw Result Comment: REFE RENCE RANGES:180-914 pg/mL Ctpfrz046-854 pg/mL Indeterminate<145 pg/mL Deficient Performed By: #### 0 0121, 75902, 00957, 62756 ####[facility] [place] [address], [facility] ARTERIAL BLOOD GAS WITH ICAo n 03-20-2017 BASE EXCESS -2 mmol/L Normal -2-2 [facility] Comment on above: Performed By: #### 0 0121, 59686, 71161, 37122 ####[facility] [id number], [facility] Bicarbonate (HCO3) 22 mmol/L Low 23-27 [facility] Comment on above: Performed By: #### 0 0121, 40966, 29030, 04289 ####[facility] [place] [address], [place] CO2 35 mmHg Normal 35-45 [facility] Comment on above: Performed By: #### 0 0121, 55582, 21811, 37835 ####[facility] [place] [address], [facility] DELIVERY SYSTEMS MV Normal [facility] Comment on above: Performed By: #### 0 0121, 21607, 83621, 64609 ####[facility] [place] [address], [place] FIO2 40 % Normal 21-100 [facility] Comment on above: Performed By: #### 0 0121, 17261, 29278, 15423 ####[facility] [place] [address], [place] IONIZED CALCIUM 1.20 mmol/L Normal 1.13-1.32 [facility] Comment on above: Performed By: #### 0 0121, 61371, 85656, 46915 ####[facility] [place] [address], [place] MIN VOLUME 7.8 Normal [facility] Comment on above: Performed By: #### 0 0121, 00380, 68564, 75936 ####[facility] [place] [address], [place] MODALITY AC Normal [facility] Comment on above: Performed By: #### 0 0121, 35633, 61372, 24378 ####[facility] [place] [address], [place] O2 saturation 96.4 % Normal 94.0-97.0 [facility] Comment on above: Performed By: #### 0 0121, 91491, 62429, 61299 ####[facility] [place] [address], [facility] Oxygen in arterial blood 106 mm[Hg] Critically high 75-100 [facility] Comment on above: Performed By: #### 0 0121, 82447, 68852, 95776 ####[facility] [place] [address], [facility] PEEP 5.0 CMH20 Normal [facility] Comment on above: Performed By: #### 0 0121, 26713, 42274, 57604 ####[facility] [place] [address], [facility] PF RATIO 265 mmHg Normal 50-400 [facility] Comment on above: Performed By: #### 0 0121, 50140, 07168, 15890 ####[facility] pH of blood 7.41 [pH] Normal 7.35-7.45 [facility] Comment on above: Performed By: #### 0 0121, 95298, 47036, 08639 ####[facility] Respiratory rate 14 /min Normal [facility] Comment on above: Performed By: #### 0 0121, 06237, 55444, 67546 ####[facility] TIDAL VOLUME (VT) CC 500 Normal [facility] Comment on above: Performed By: #### 0 0121, 86584, 21710, 61177 ####[facility] [place] [address], [facility] BASIC METABOLIC PANELon 09-2 Calcium 7.7 mg/dL Low 8.6-10.3 [facility] Comment on above: Order Comment: No: D o not add to previous draw Performed By: #### 0 0121, 47287, 12982, 19108 ####[facility] [place] [address], [facility] Chloride 113 mmol/L High 98-107 [facility] Comment on above: Order Comment: No: D o not add to previous draw Performed By: #### 0 0121, 76069, 70526, 71219 ####[facility] [place] [address], [facility] CO2 20 mmol/L Low 21-31 [facility] Comment on above: Order Comment: No: D o not add to previous draw Performed By: #### 0 0121, 33779, 30728, 77563 ####[facility] [place] [address], [facility] Creatinine 0.71 mg/dL Normal 0.70-1.30 [facility] Comment on above: Order Comment: No: D o not add to previous draw Performed By: #### 0 0121, 08604, 53607, 83327 ####[facility] [place] [address], [facility] eGFR (black) mL/min/{1.73_m2} Normal >60 [facility] Comment on above: Order Comment: No: D o not add to previous draw Performed By: #### 0 0121, 54573, 70915, 74024 ####[facility] [place] [address], [facility] eGFR (non-black) mL/min/{1.73_m2} Normal >60 Th e [facility] Comment on above: Order Comment: No: D o not add to previous draw Performed By: #### 0 0121, 61315, 42028, 74089 ####[facility] [place] [address], [facility] Glucose mass conc 78 mg/dL Normal 70-100 [facility] Comment on above: Order Comment: No: D o not add to previous draw Performed By: #### 0 0121, 32518, 34732, 99916 ####[facility] Potassium molar conc 3.8 mmol/L Normal 3.5-5.1 [facility] Comment on above: Order Comment: No: D o not add to previous draw Performed By: #### 0 0121, 12703, 82046, 59516 ####[facility] Sodium 141 mmol/L Normal 136-145 [facility] Comment on above: Order Comment: No: D o not add to previous draw Performed By: #### 0 0121, 79155, 72689, 78500 ####[facility] Urea nitrogen 16 mg/dL Normal 7-25 [facility] Comment on above: Order Comment: No: D o not add to previous draw Performed By: #### 0 0121, 80675, 65456, 00118 ####[facility] [facility] CBC COMPLETE BLOOD COUNTon 0 03-20-2017 Erythrocyte distribution width Auto Ratio (RBC) 13.4 % Normal 11.5-16.9 [facility] Comment on above: Order Comment: This order is a replacement of the rejected order with accession [id number]. Performed By: #### 0 0121, 16829, 32438, 27563 ####[facility] Erythrocytes (RBC) 4.14 mill/mm3 Low 4.30-5.90 [facility] Comment on above: Order Comment: This order is a replacement of the rejected order with accession [id number]. Performed By: #### 0 0121, 01448, 21809, 17266 ####[facility] Hematocrit (HCT) 37.2 % Low 39.0-55.0 [facility] Comment on above: Order Comment: This order is a replacement of the rejected order with accession [id number]. Performed By: #### 0 0121, 87385, 33742, 33124 ####[facility] Hemoglobin mass conc (Bld) 12.5 g/dL Low 13.9-16.3 [facility] Comment on above: Order Comment: This order is a replacement of the rejected order with accession [id number]. Performed By: #### 0 0121, 28372, 71751, 77854 ####[place] [address] [facility].[address] MCH 30.1 pg Normal 24.0-32.0 [facility] Comment on above: Order Comment: This order is a replacement of the rejected order with accession [id number]. Performed By: #### 0 0121, 30467, 45768, 49505 ####[facility] [facility].[address] MCHC mass conc (RBC) 33.5 g/dL Normal 32.0-36.0 [facility] Comment on above: Order Comment: This order is a replacement of the rejected order with accession [id number]. Performed By: #### 0 0121, 98139, 64843, 40999 ####[facility] MCV 89.8 fL Normal 80.0-100.0 [facility] Comment on above: Order Comment: This order is a replacement of the rejected order with accession [id number]. Performed By: #### 0 0121, 32441, 01669, 73397 ####[facility] PLAT CNT 142 Thou/mm3 Normal 100-400 [facility] Comment on above: Order Comment: This order is a replacement of the rejected order with accession [id number]. Performed By: #### 0 0121, 99630, 55704, 57800 ####[facility] [facility] [place] [address], [facility] WBC (Leukocytes) 6.3 Thou/mm3 Normal 4.0-10.0 [facility] Comment on above: Order Comment: This order is a replacement of the rejected order with accession [id number]. Performed By: #### 0 0121, 23780, 48536, 93572 ####[facility] [facility].[address] EEG Reporton 03-20-2017 EEG Report Name: [facility] MR#: [id number] Age: 61 Physician: Hoa Chanel M.D. 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 Continuous video/EEG monitoring is recommended to continue forassistance with clinical management, as events are largely subclinical.Aggressive treatment for seizures is advised.Electronically Signed by:Hoa Chanel M.D. Ph.D 03/21/2017 08:50 A ___Hoa Chanel M.D. Ph.DDate Dict: 03/19/2017/09:39 A/Hoa Chanel M.D. Ph.DDate Trans: 03/20/2017 05:53 A/Dennis_JN:[id number]: Gasper Thurman D.O. [address] [place] [phone] Hoa Chanel M.D. Ph.D Department Of Neurology [address] [place] [address] Normal [facility] KEPPRA ILon 03-20-2017 [place] Normal [facility] Comment on above: Order Comment: No: D o not add to previous draw KEPPRA 19 ug/mL Normal [facility] Comment on above: Order Comment: No: [...] Magnesium 1.8 mg/dL Low 1.9-2.7 [facility] Comment on above: Order Comment: No: D o not add to previous draw Performed By: #### 0 0121, 50131, 26109, 67151 ####[facility] [facility] [place] [address], [facility] PHOSPHORUS BLOODon 7 Phosphate 2.6 mg/dL Normal 2.5-5.0 [facility] Comment on above: Order Comment: No: D o not add to previous draw Performed By: #### 0 0121, 53262, 12172, 32592 ####[facility] [facility] [place] [address], [facility] POC GLUCOSE LABon 03-20-2017 Glucose mass conc 101 mg/dL High 70-100 [facility] Comment on above: Performed By: #### 0 0121, 02006, 62930, 63839 ####[facility] [facility] [place] [address], [facility] Glucose mass conc 115 mg/dL High 70-100 [facility] Comment on above: Performed By: #### 0 0121, 00571, 74974, 84574 ####[facility] [facility] [place] [address], [facility] Glucose mass conc 78 mg/dL Normal 70-100 [facility] Comment on above: Performed By: #### 0 0121, 41622, 44832, 85431 ####[facility] [place] [address], [facility] Glucose mass conc 78 mg/dL Normal 70-100 [facility] Comment on above: Performed By: #### 0 0121, 64280, 47586, 27569 ####[facility] [place] [address], [facility] PORTABLE CHEST 1 VIEWon 02-22 PORTABLE CHEST 1 VIEW [facility] [place] [phone] Patient Name: REMINGTON BARKER : 1955Sex: MAge: Race: WhiteMRN: [id number]. Location: [id number] Status: IVisit #: [id number] Date: 03/20/2017 5:10:00 PMCompleted Date: 03/20/2017 05:35 PMRequesting Provider: JEFF SANDOVAL Attending Provider: ALEXI LOWERY Report Copy To: Signs & Symptoms: OtherHistory: Patient history not availableComments: Check E.T. Position, check ET tube positionExam: PORTABLE CHEST 1 VIEWAccession #: [id number] ALEXANDER LE CHEST 1 VIEW 03/20/2017 5:35 PM [...] findings. Electronically signed by:Brent Wilkinson. Transcribed by: [email or web address], User Resident: REBEKAH ALLENANElectronically Signed by: BRENT WILKINSON @ 03/24/2017 06:41 PMI personally read this/these film(s) with this resident Normal [facility] Comment on above: Order Comment: Other , right weakness left gaze pref VALPROIC ACIDon 03-20-2017 VALPROIC ACID (DEPAKOTE) 72 mcg/mL Normal 60-100 [facility] Comment on above: Performed By: #### 0 0121, 38859, 05550, 45265 ####[facility] *AFB CULTUREon 03-19-2017 *AFB CULTURE Clinical Report: (D) Specimen: CSF Collected: 03/19/2017 12:14 Status: Final Last Updated: 05/01/2017 11:16 (1) Tube 3 Lumbar AFB (Final) No Acid Fast Bacilli Seen CULT RES (Final) No growth after 42 days of incubation Normal [facility] Comment on above: Order Comment: Tube 3 Lumbar Performed By: #### 2 1408 ####[facility] *CRYPTOCOCCAL AGon 7 *CRYPTOCOCCAL AG Clinical Report: (D) Specimen: CSF Collected: 03/19/2017 12:14 Status: Final Last Updated: 03/19/2017 18:37 (1) Tube 2 Lumbar CRYPT A (Final) Negative Normal [facility] Comment on above: Order Comment: Tube 2 Lumbar Performed By: #### 1 0054 ####[facility] *CSF CULTUREon 03-19-2017 *CSF CULTURE Clinical Report: (D) Specimen/Source: CSF/CEREBRAL SPINAL FLUID Collected: 03/19/2017 12:14 Status: Final Last Updated: 03/24/2017 11:16 (1) Tube 2 Lumbar Lumbar Puncture GRAM (Final) No Polys Seen No Bacteria Seen CYTOSPUN (Final) This Gram Stain was done on a cytocentrifuged specimen CULT RES (Final) No Growth Day 5 Normal [facility] Comment on above: Order Comment: Tube 2 LumbarLumbar Puncture Performed By: #### 0 0121, 09488, 98384, 28299 ####[facility] *FUNGAL CULTUREon 03-19-2017 *FUNGAL CULTURE Clinical Report: (D) Specimen: MISC Collected: 03/19/2017 12:14 Status: Final Last Updated: 04/21/2017 08:05 (1) Tube 2 Lumbar No: Do not add to previous draw CULT RES (Final) Culture negative for fungus Normal [facility] Comment on above: Order Comment: Tube 2 LumbarNo: Do not add to previous draw Performed By: #### 0 0121, 23403, 65427, 21149 ####[facility] APTTon 03-19-2017 aPTT 28.2 s Normal 25.0-35.0 [facility] Comment on above: Order Comment: No: [...] THIS PURPOSE. Performed By: #### 2 1408 ####[facility] [facility].[address] ARTERIAL BLOOD GAS WITH ICAo n 03-19-2017 BASE EXCESS -3 mmol/L Low -2-2 [facility] Comment on above: Performed By: #### 2 1408 ####[facility] [facility].[address] Bicarbonate (HCO3) 22 mmol/L Low 23-27 [facility] Comment on above: Performed By: #### 2 1408 ####[facility] [facility].[address] CO2 37 mmHg Normal 35-45 [facility] Comment on above: Performed By: #### 2 1408 ####[facility] [facility].[address] DELIVERY SYSTEMS MV Normal [facility] Comment on above: Performed By: #### 2 1408 ####[place] [id number] [facility].[address] FIO2 40 % Normal 21-100 [facility] Comment on above: Performed By: #### 2 1408 ####[place] [address] [facility].[address] IONIZED CALCIUM 1.14 mmol/L Normal 1.13-1.32 [facility] Comment on above: Performed By: #### 2 1408 ####[place] [address] [facility].[address] MIN VOLUME 7.3 Normal [facility] Comment on above: Performed By: #### 2 1408 ####[facility] [facility].[address] MODALITY AC Normal [facility] Comment on above: Performed By: #### 2 1408 ####[facility] [place] [address], [facility] O2 saturation 95.1 % Normal 94.0-97.0 [facility] Comment on above: Performed By: #### 2 1408 ####[facility] [place] [address], [facility] Oxygen in arterial blood 103 mm[Hg] Critically high 75-100 [facility] Comment on above: Performed By: #### 2 1408 ####[facility] [place] [address], [facility] PEEP 5.0 CMH20 Normal [facility] Comment on above: Performed By: #### 2 1408 ####[facility] [place] [address], [facility] pH of blood 7.38 [pH] Normal 7.35-7.45 [facility] Comment on above: Performed By: #### 2 1408 ####[facility] [place] [address], [facility] Respiratory rate 14 /min Normal [facility] Comment on above: Performed By: #### 2 1408 ####[facility] [place] [address], [facility] TIDAL VOLUME (VT) CC 500 Normal [facility] Comment on above: Performed By: #### 2 1408 ####[facility] [place] [address], [place] BASIC METABOLIC PANELon - Calcium 7.5 mg/dL Low 8.6-10.3 [facility] Comment on above: Order Comment: No: D o not add to previous draw Performed By: #### 2 1408 ####[facility] [place] [address], [place] Chloride 114 mmol/L High 98-107 [facility] Comment on above: Order Comment: No: D o not add to previous draw Performed By: #### 2 1408 ####[facility] [facility] [place] [address], [facility] CO2 21 mmol/L Normal 21-31 [facility] Comment on above: Order Comment: No: D o not add to previous draw Performed By: #### 2 1408 ####[facility] [facility].[address] Creatinine 0.83 mg/dL Normal 0.70-1.30 [facility] Comment on above: Order Comment: No: D o not add to previous draw Performed By: #### 2 1408 ####[facility] [facility].[address] eGFR (black) mL/min/{1.73_m2} Normal >60 [facility] Comment on above: Order Comment: No: D o not add to previous draw Performed By: #### 2 1408 ####[facility] [facility].[address] eGFR (non-black) mL/min/{1.73_m2} Normal >60 [facility] e [facility] Comment on above: Order Comment: No: D o not add to previous draw Performed By: #### 2 1408 ####[facility] [facility].[address] Glucose mass conc 105 mg/dL High 70-100 [facility] Comment on above: Order Comment: No: D o not add to previous draw Performed By: #### 2 1408 ####[facility] [facility].[address] Potassium molar conc 3.9 mmol/L Normal 3.5-5.1 [facility] Comment on above: Order Comment: No: D o not add to previous draw Performed By: #### 2 1408 ####[id number] [place] [address], [facility] Sodium 144 mmol/L Normal 136-145 [facility] Comment on above: Order Comment: No: D o not add to previous draw Performed By: #### 2 1408 ####[facility] [place] [address], [facility] Urea nitrogen 19 mg/dL Normal 7-25 [facility] Comment on above: Order Comment: No: D o not add to previous draw Performed By: #### 2 1408 ####[facility] [place] [address], [facility] CBC W/DIFFon 03-19-2017 Basophils Auto #/vol (Bld) 0.2 % Normal 0.0-2.0 [facility] Comment on above: Order Comment: No: D o not add to previous draw Performed By: #### 2 1408 ####[facility] [place] [address], [facility] Eosinophils/100 leukocytes 0.7 % Normal 0.0-5.0 [facility] Comment on above: Order Comment: No: D o not add to previous draw Performed By: #### 2 1408 ####[facility] [place] [address], [facility] Erythrocyte distribution width Auto Ratio (RBC) 13.7 % Normal 11.5-16.9 [facility] Comment on above: Order Comment: No: D o not add to previous draw Performed By: #### 2 1408 ####[facility] [place] [address], [facility] Erythrocytes (RBC) 4.16 mill/mm3 Low 4.30-5.90 [facility] Comment on above: Order Comment: No: D o not add to previous draw Performed By: #### 2 1408 ####[facility] Hematocrit (HCT) 37.6 % Low 39.0-55.0 [facility] Comment on above: Order Comment: No: D o not add to previous draw Performed By: #### 2 1408 ####[facility] [place] [address], [facility] Hemoglobin mass conc (Bld) 12.6 g/dL Low 13.9-16.3 [facility] Comment on above: Order Comment: No: D o not add to previous draw Performed By: #### 2 1408 ####[facility] [facility].[address] Lymphocytes/100 leukocytes 12.0 % Low 20.0-40.0 [facility] Comment on above: Order Comment: No: D o not add to previous draw Performed By: #### 2 1408 ####[facility] [facility].[address] MCH 30.2 pg Normal 24.0-32.0 [facility] Comment on above: Order Comment: No: D o not add to previous draw Performed By: #### 2 1408 ####[facility] [facility].[address] MCHC mass conc (RBC) 33.5 g/dL Normal 32.0-36.0 [facility] Comment on above: Order Comment: No: D o not add to previous draw Performed By: #### 2 1408 ####[facility] [facility] [place] [address], [facility] MCV 90.3 fL Normal 80.0-100.0 [facility] Comment on above: Order Comment: No: D o not add to previous draw Performed By: #### 2 1408 ####[facility] [facility] [place] [address], [facility] METHOD Normal RBC Morphology Normal [facility] Comment on above: Order Comment: No: D o not add to previous draw Performed By: #### 2 1408 ####[facility] [place] [address], [facility] MONOS 6.5 % Normal 2-8 [facility] Comment on above: Order Comment: No: D o not add to previous draw Performed By: #### 2 1408 ####[facility] [place] [address], [facility] Neutrophils/100 leukocytes 80.6 % High 50-70 [facility] Comment on above: Order Comment: No: D o not add to previous draw Performed By: #### 2 1408 ####[facility] [place] [address], [facility] PLAT CNT 148 Thou/mm3 Normal 100-400 [facility] Comment on above: Order Comment: No: D o not add to previous draw Performed By: #### 2 1408 ####[facility] [place] [address], [facility] WBC (Leukocytes) 9.0 Thou/mm3 Normal 4.0-10.0 [facility] Comment on above: Order Comment: No: D o not add to previous draw Performed By: #### 2 1408 ####[facility] [place] [address], [facility] CSF CELL COUNTon 03-19-2017 Erythrocytes (RBC) 0 mm3 Normal 0-0 [facility] Comment on above: Order Comment: Lumba r Tube 1 Tube 4 Performed By: #### 1 0054 ####[facility] [place] [address], [facility] Erythrocytes (RBC) 22 mm3 High 0-0 [facility] Comment on above: Performed By: #### 1 0054 ####[facility] [place] [address], [facility] FLUID APPEAR CLEAR AND COLORLESS Normal [facility] Comment on above: Order Comment: Lumba r Tube 1 Tube 4 Performed By: #### 1 0054 ####[facility] FLUID VOLUME 23.5 mL Normal [facility] Comment on above: Order Comment: Lumba r Tube 1 Tube 4 Performed By: #### 1 0054 ####[facility] [place] [address], [facility] Lymphocytes/100 leukocytes 56 % High 0-0 [facility] Comment on above: Order Comment: Lumba r Tube 1 Tube 4 Performed By: #### 1 0054 ####[facility] [place] [address], [facility] Lymphocytes/100 leukocytes 55 % High 0-0 [facility] Comment on above: Performed By: #### 1 0054 ####[facility] [facility].[address] MACROPHAGE 8 % Normal [facility] Comment on above: Order Comment: Lumba r Tube 1 Tube 4 Performed By: #### 1 0054 ####[facility] [facility].[address] MACROPHAGE 13 % Normal [facility] Comment on above: Performed By: #### 1 0054 ####[facility] [facility].[address] OTHER F2 70 CELL DIFF DONE BY CYTOSPIN Normal [facility] Comment on above: Order Comment: Lumba r Tube 1 Tube 4 Performed By: #### 1 0054 ####[facility] OTHER F2 80 CELL DIFF DONE BY CYTOSPIN Normal [facility] Comment on above: Performed By: #### 1 0054 ####[facility] OTHER F3 CHECKED BY ROBLES GARZA M.D. Normal [facility] Comment on above: Order Comment: Lumba r Tube 1 Tube 4 Result Comment: Resu lt changed by CHACHO on 03/21/2017 10:11. The previous value wasPRELIMINARY REPORT; VERIFIED REPORT TO FOLLOW. Performed By: #### 1 0054 ####[facility] [place] [address], [facility] SEGS 6 % High 0-0 [facility] Comment on above: Order Comment: Lumba r Tube 1 Tube 4 Performed By: #### 1 0054 ####[facility] [place] [address], [facility] SEGS 12 % High 0-0 [facility] Comment on above: Performed By: #### 1 0054 ####[facility] [place] [address], [facility] SITE LUMBAR Normal [facility] Comment on above: Order Comment: Lumba r Tube 1 Tube 4 Performed By: #### 1 0054 ####[facility] [place] [address], [facility] WBC (Leukocytes) 5 mm3 High 0-0 [facility] Comment on above: Performed By: #### 1 0054 ####[facility] [place] [address], [facility] WBC (Leukocytes) 7 mm3 High 0-0 [facility] Comment on above: Order Comment: Lumba r Tube 1 Tube 4 Performed By: #### 1 0054 ####[facility] [place] [address], [facility] XANTHOCHROMIA NONE SEEN Normal [facility] Comment on above: Order Comment: Lumba r Tube 1 Tube 4 Performed By: #### 1 0054 ####[facility] [place] [address], [facility] CT CHEST WO CONTRASTon 03-19 CT CHEST WO CONTRAST [facility] [place] [address] Patient Name: REMINGTON BARKER : 1955Sex: MAge: Race: WhiteMRN: [id number]. Location: [id number] Status: IVisit #: [id number] Date: 03/19/2017 2:30:00 PMCompleted Date: 03/19/2017 05:31 PMRequesting Provider: JERICHO WANG Attending Provider: ALEXI LOWERY Report Copy To: Signs & Symptoms: Shortness of BreathHistory: Patient history not availableComments: R/O InfiltratesExam: CT CHEST WO CONTRASTAccession #: [id number] CT CHEST WO CONTRAST 03/19/2017 5:31 PM [...] findings. Electronically signed by:Brent Wilkinson. Transcribed by: [email or web address], User Resident: LORENZO GALLEGOSElectronically Signed by: BRENT WILKINSON @ 03/19/2017 08:27 PMI personally read this/these film(s) with this resident Normal [facility] Comment on above: Order Comment: R/O I nfiltrates EEG Reporton 03-19-2017 [facility] [id number] Age: 61 Physician: Date: 03/17/2017 Lab#: [id number] Date of : 1955 Patient Type: I NEURODIAGNOSTIC SERVICES [id number] [place], [place] [address] Board of the [place] [employer] Accredited LaboratoryHISTORY: This is a 61-year-old man with a history of possible seizure, whopresents from [facility], with complaints of inability to move [...] 03/18/2017/06:45 P/Enrique Osorio MDDate Trans: 03/19/2017 08:31 A/mmoDN_JN:[id number]: Gasper Thurman D.O. [address] [place] [address] A [facility] [phone] Normal [facility] MR[facility] [id number] Age: 61 Physician: Hoa Chanel M.D. Ph.D Date: 03/17/2017-03/18/2017 Lab#: [id number], day 1 Date of : 1955 Patient Type: I NEURODIAGNOSTIC SERVICES [id number] [place], [place] [address] Board of the [place] [employer] Accredited LaboratoryHISTORY: This video/EEG continuous monitoring is performed on l15-ljvz-ied man with a history of epilepsy, found [...] A/Hoa Chanel M.D. Ph.DDate Trans: 03/18/2017 10:28 P/Dennis_JN:[id number]: Gasper Thurman D.O. [address] [place] [phone] Hoa Chanel M.D. Ph.D Department Of Neurology [address] [place] [id number] [address] [facility] ENTEROVIRUS, PCR [id number] ENTEROVIRUS , PCR Not Detected Normal [facility] Comment on above: Order Comment: Tube 3 Lumbar Result Comment: NOT DETECTED - A negative result does not rule out thepresence of PCR inhibitors in the patient specimen or assayspecific nucleic acid in concentrations below the level ofdetection by the assay.INTERPRETIVE INFORMATION: Enterovirus by PCRTest developed and characteristics determined by [facility]. See Compliance Statement A: Lendio/CSThis test is performed pursuant to an agreement with [employer]Performed by [employer],[address] [facility] [place] [address] gho.Lendio, Zach Blanchard MD - Lab. Director EV SOURCE Lumbar Normal [facility] Comment on above: Order Comment: Tube 3 Lumbar GLUCOSE CSFon 03-19-2017 GLUCOSE CSF 61 mg/dL Normal 40-70 [facility] Comment on above: Order Comment: Tube 2 Lumbar Performed By: #### 1 0054 ####[address] NEGRO VIRUS PCR [id number] NEGRO VIRUS PCR Not Detected Normal [facility] Comment on above: Order Comment: Tube 2 LumbarNo: Do not add to previous draw Result Comment: NOT DETECTED - A negative result does not rule out thepresence of PCR inhibitors in the patient specimen or assayspecific nucleic acid in concentrations below the level ofdetection by the assay.INTERPRETIVE INFORMATION: NEGRO Virus by PCRTest developed and characteristics determined by [facility]. See Compliance Statement B: Lendio/CSPerformed by [employer],[address] [facility] [place] [address] qel.Lendio, Zach Blanchard MD - Lab. Director NEGRO VIRUS SOURCE Lumbar Normal [facility] Comment on above: Order Comment: Tube 2 LumbarNo: Do not add to previous draw LUMBAR PUNCTURE DIAGNOSTICon 03-19-2017 LUMBAR PUNCTURE DIAGNOSTIC [facility] Zxhmahbcw[address] [place] [address] Patient Name: REMINGTON BARKER : 1955Sex: MAge: Race: WhiteMRN: [id number]. Location: [id number] Status: IVisit #: [id number] Date: 03/19/2017 8:00:00 AMCompleted Date: 03/19/2017 12:01 PMRequesting Provider: MIKI SCOTT Attending Provider: ALEXI LOWERY Report Copy To: Signs & Symptoms: Altered Mental StatusHistory: Patient history not availableComments: R/O MenningitisExam: LUMBAR PUNCTURE DIAGNOSTICAccession #: [id number] LUMBAR PUNCTURE DIAGNOSTIC 03/19/2017 12:01 PM EDT [...] and risks are acceptable. Consent was obtained. Timeout:[place] protocol timeout verification performed. PROCEDURE: Lumbar puncture [...] findings. Electronically signed by:Yuko Thorne. Transcribed by: [email or web address], User Resident: ISIS De Santiagoectronically Signed by: YUKO THORNE @ 03/19/2017 03:26 PMI personally read this/these film(s) with this resident Normal [facility] Comment on above: Order Comment: R/O M enningitis LYME ABS DET CSF [id number] LYME ABS DET 0.04 BENITO Normal <=0.99 [facility] Comment on above: Order Comment: Tube [...] 10 days.Test developed and characteristics determined by [facility]. See Compliance Statement B: [employer]/CSPerformed by [facility],[address] [place] [address] qzs.Lendio, Zach Blanchard MD - Lab. Director MAGNESIUM BLOODon 03-19-2017 Magnesium 1.9 mg/dL Normal 1.9-2.7 [facility] Comment on above: Order Comment: No: D o not add to previous draw Performed By: #### 2 1408 ####[facility] [facility] [place] [address], [facility] PHOSPHORUS BLOODon 7 Phosphate 2.6 mg/dL Normal 2.5-5.0 [facility] Comment on above: Order Comment: No: D o not add to previous draw Performed By: #### 2 1408 ####[place] [address] [facility] [place] [address], [facility] POC GLUCOSE LABon 03-19-2017 Glucose mass conc 78 mg/dL Normal 70-100 [facility] Comment on above: Performed By: #### 1 0054 ####[facility] [facility] [place] [address], [facility] Glucose mass conc 71 mg/dL Normal 70-100 [facility] Comment on above: Performed By: #### 2 1408 ####[address] [place] [address], [facility] Glucose mass conc 100 mg/dL Normal 70-100 [facility] Comment on above: Performed By: #### 5 0103 ####[address] [place] [address], [facility] PORTABLE CHEST 1 VIEWon 02-22 PORTABLE CHEST 1 VIEW [facility] Aahjrlfea5595 [place] [address] Patient Name: REMINGTON BARKER : 1955Sex: MAge: Race: WhiteMRN: [id number]. Location: [id number] Status: IVisit #: [id number] Date: 03/19/2017 5:00:00 AMCompleted Date: 03/19/2017 09:08 AMRequesting Provider: JEFF SANDOVAL Attending Provider: ALEXI LOWERY Report Copy To: Signs & Symptoms: Elevated WBCHistory: Patient history not availableComments: R/O AspirationExam: PORTABLE CHEST 1 VIEWAccession #: [id number] PORTAB LE CHEST 1 VIEW 03/19/2017 9:08 [...] atelectasis. Electronically signed by:Ibrahima Garcia. Transcribed by: [email or web address], User Resident: Electronically Signed by: IBRAHIMA GARCIA @ 03/19/2017 01:50 PM Normal [facility] Comment on above: Order Comment: R/O A spiration PROTHROMBIN TIMEon 7 INR Coag RelTime (PPP) 1.11 {INR} Normal 0.91-1.16 [facility] Comment on above: Order Comment: No: [...] OF ACTION, CLINICALEFFECTIVENESS, AND OPTIMAL THERAPEUTIC RANGE. [id number];108:[id number]-246S. Performed By: #### 2 1408 ####[place] [address] Prothrombin time (PT) Coag time (PPP) 14.4 s Normal 12.3-14.8 [facility] Comment on above: Order Comment: No: D o not add to previous draw Result Comment: ALL RESULTS MUST BE INTERPRETED WITH RESPECT TO BLOOD DRAWING ARTIFACTOR DILUTION ERROR OF ANTICOAGULANT AT THE TIME OF SAMPLING. Performed By: #### 2 1408 ####[place] [address] TOTAL PROTEIN CSFon 03-19-20 17 TOTAL PROTEIN CSF 68.0 mg/dL High 20.0-45.0 [facility] Comment on above: Order Comment: Tube 2 LumbarNo: Do not add to previous draw Performed By: #### 1 0054 ####[place] [address] VARICELLA ZOSTER PCR [id number] 03-19-2017 VZV BY PCR Not Detected Normal [facility] Comment on above: Order Comment: Tube 3 LumbarNo: Do not add to previous draw Result Comment: NOT DETECTED - A negative result does not rule out thepresence of PCR inhibitors in the patient specimen or assayspecific nucleic acid in concentrations below the level ofdetection by the assay.INTERPRETIVE INFORMATION: Varicella-Zoster Virus by PCRTest developed and characteristics determined by [facility]. See Compliance Statement B: Lendio/CSPerformed by [facility],[address] [place] [facility] [place] [address] agy.Lendio, Zach Blanchard MD - Lab. Director VDRL CSFon 03-19-2017 [place] Normal [facility] Comment on above: Order Comment: Tube 3 Lumbar VDRL NONREACTIVE Normal NR [facility] Comment on above: Order Comment: Tube 3 [place] [id number] on 03-19-2017 [place] IGG CSF 0.10 IV Normal <=1.29 [facility] Comment on above: Order Comment: Tube [...] blood-brain barrier.Test developed and characteristics determined by [facility]. See Compliance Statement B: Lendio/CS [place] IGM CSF 0.02 IV Normal <=0.89 [facility] Comment on above: Order Comment: Tube [...] blood-brain barrier.Test developed and characteristics determined by [facility]. See Compliance Statement B: Lendio/CSPerformed by [facility],[address] [place] [address] ekt.Lendio, Zach Blanchard MD - Lab. Director *BLOOD CULTUREon 03-18-2017 *BLOOD CULTURE Clinical Report: (D) Specimen: BLOOD CULTURE Collected: 03/18/2017 10:24 Status: Final Last Updated: 03/24/2017 09:35 CULT RES (Final) No Growth Day 5 Normal [facility] Comment on above: Performed By: #### 1 0054 ####[facility] *SPUTUM CULTUREon 03-18-2017 *SPUTUM CULTURE Clinical Report: (D) Specimen/Source: SPUTUM/SPUTUM, INDUCED Collected: 03/18/2017 16:30 Status: Final Last Updated: 03/21/2017 08:05 (1) Yes: Add to Previous draw if able GRAM (Final) Zero Squamous Epithelial Cells, >25 Polys Per Low Power Field No Bacteria Seen ISO (Final) Rare Growth Colonies Consistent with Upper Respiratory Kaylen Normal [facility] Comment on above: Order Comment: Yes: Add to Previous draw if able Performed By: #### 5 0103 ####[facility] ARTERIAL BLOOD GAS WITH ICAo n 03-18-2017 BASE EXCESS -5 mmol/L Low -2-2 [facility] Comment on above: Performed By: #### 8 4511 ####[facility] Bicarbonate (HCO3) 21 mmol/L Low 23-27 [facility] Comment on above: Performed By: #### 8 4511 ####[facility] CO2 39 mmHg Normal 35-45 [facility] Comment on above: Performed By: #### 8 4511 ####[facility] DELIVERY SYSTEMS VENTILATOR Normal [facility] Comment on above: Performed By: #### 8 4511 ####[facility] [place] [address], [facility] FIO2 40 % Normal 21-100 [facility] Comment on above: Performed By: #### 8 4511 ####[facility] [place] [address], [facility] IONIZED CALCIUM 1.14 mmol/L Normal 1.13-1.32 [facility] Comment on above: Performed By: #### 8 4511 ####[facility] [place] [address], [place] MIN VOLUME 7.0 Normal [facility] Comment on above: Performed By: #### 8 4511 ####[facility] [place] [address], [place] MODALITY AC Normal [facility] Comment on above: Performed By: #### 8 4511 ####[facility] [place] [address], [place] O2 saturation 91.2 % Low 94.0-97.0 [facility] Comment on above: Performed By: #### 8 4511 ####[facility] [place] [address], [place] Oxygen in arterial blood 71 mm[Hg] Low 75-100 [facility] Comment on above: Performed By: #### 8 4511 ####[facility] [place] [address], [place] PEEP 5.0 CMH20 Normal [facility] Comment on above: Performed By: #### 8 4511 ####[facility] [place] [address], [place] PF RATIO 178 mmHg Normal 50-400 [facility] Comment on above: Performed By: #### 8 4511 ####[facility] [place] [address], [place] pH of blood 7.33 [pH] Low 7.35-7.45 [facility] Comment on above: Performed By: #### 8 4511 ####[facility] [place] [address], [place] Respiratory rate 14 /min Normal [facility] Comment on above: Performed By: #### 8 4511 ####[facility] [place] [address], [facility] TIDAL VOLUME (VT) CC 500 Normal [facility] Comment on above: Performed By: #### 8 4511 ####[facility] [place] [address], [facility] CPKon 03-18-2017 Creatine kinase (CK) 1402 U/L High 30-223 [facility] Comment on above: Order Comment: No: D o not add to previous draw Performed By: #### 5 0103 ####[facility] [place] [address], [facility] Creatine kinase (CK) 2807 U/L Critically high 30-223 [facility] Comment on above: Performed By: #### 3 9301, 30715, 92287 ####[facility] [place] [address], [facility] KEPPRA ILon 03-18-2017 [place] Normal [facility] Comment on above: Order Comment: Yes: Add to Previous draw if able KEPPRA <2 Normal [facility] Comment on above: Order Comment: Yes: [...] Lactate 0.7 mmol/L Normal .5-2.2 [facility] Comment on above: Order Comment: No: D o not add to previous drawNurse draw per TEJ Vela. Performed By: #### 5 0103 ####[facility] [place] [address], [facility] Lactate 2.4 mmol/L High .5-2.2 [facility] Comment on above: Order Comment: Other , right weakness left gaze pref Performed By: #### 1 0054 ####[facility] MYOGLOBINon 03-18-2017 Myoglobin 127 ng/mL High 0-90 [facility] Comment on above: Order Comment: No: D o not add to previous draw Result Comment: A DO UBLING OF VALUES FROM SERIAL BLOOD COLLECTIONS(1 - 2 HOURS APART) IS MORE INDICATIVE OF A M.I.THAN THE ABSOLUTE VALUE. Performed By: #### 5 0103 ####[facility] Myoglobin 395 ng/mL Critically high 0-90 [facility] Comment on above: Result Comment: A DO UBLING OF VALUES FROM SERIAL BLOOD COLLECTIONS(1 - 2 HOURS APART) IS MORE INDICATIVE OF A M.I.THAN THE ABSOLUTE VALUE. Performed By: #### 3 9301, 24992, 88260 ####[facility] OSMOLALITY BLOODon 7 Osmolality 313 mOsm/kg High 285-305 [facility] Comment on above: Order Comment: Other , right weakness left gaze pref Performed By: #### 3 9301, 60470, 99782 ####[facility] Operative Reporton 7 Operative Report MR#: [id number] [facility] Remington Barker Room #: CELINE [id number] Discharge Date: Birthdate: 1955 OPERATIVE REPORTDATE OF SURGERY: 03/18/2017SURGEON: Ale Zavala M.D.PROCEDURE: Right internal jugular triple lumen central venous catheterplacement.INDICATION: IV access.CONTRAINDICATIONS: No contraindications in this particular patient.Procedure is operated by Dr. Covarrubias with attending Dr. Zavala.CONSENT: Written consent was obtained before the procedure explainingrisks, benefits, and purpose. Brother was [id number] in this caseand signing .A time-out was [...] Dict: 03/18/2017/03:38 P/Symone Gaona Trans: 03/18/2017 06:37 P/danishaoDN_JN:[id number]: Gasper Thurman D.O. [address] [place] [address] A [facility] [address] [place] [facility] Operative Report MR#: [id number] malika [facility] Pt. Name: Remington Barker Room #: CELINE [id number] Discharge Date: Birthdate: 1955 OPERATIVE REPORTDATE OF SURGERY: 03/18/2017SURGEON: Ale Zavala M.D.PROCEDURE CHIP DRIER: Dr. Jericho Wang.ATTENDING PHYSICIAN: Dr. Ale Zavala.PROCEDURE: [...] 03/18/2017/03:14 P/Jericho Wang, MDDate Trans: 03/18/2017 04:29 P/mmoDN_JN:[id number]: Gasper Thurman D.O. [address] [place] [id number] Normal [facility] POC GLUCOSE LABon 03-18-2017 Glucose mass conc 99 mg/dL Normal 70-100 [facility] Comment on above: Performed By: #### 5 0103 ####[facility] [place] [address], [facility] Glucose mass conc 121 mg/dL High 70-100 [facility] Comment on above: Performed By: #### 8 5499 ####[facility] [facility] [place] [address], [facility] Glucose mass conc 152 mg/dL High 70-100 [facility] Comment on above: Performed By: #### 8 5499 ####[facility] [facility] [place] [address], [facility] Glucose mass conc 215 mg/dL High 70-100 [facility] Comment on above: Performed By: #### 8 5499 ####[facility] [facility] [place] [address], [facility] PORTABLE CHEST 1 VIEWon 02-22 PORTABLE CHEST 1 VIEW [facility] Zcrflvmxs[address] [place] [address] Patient Name: REMINGTON BARKER : 1955Sex: MAge: Race: WhiteMRN: [id number]. Location: [id number] Status: IVisit #: [id number] Date: 03/18/2017 3:30:00 PMCompleted Date: 03/18/2017 03:51 PMRequesting Provider: VIKRAM COVARRUBIAS Attending Provider: ALEXI LOWERY Report Copy To: Signs & Symptoms: Post Line PlacementHistory: Patient history not availableComments: Check Line Position, Uncomplicated procedure check placement. ; Call/page results to [id number]: PORTABLE CHEST 1 VIEWAccession #: [id number] PORTAB LE CHEST 1 VIEW 03/18/2017 3:51 PM EDT SIGNS AND SYMPTOMS: Post Line Placement TECHNOLOGIST COMMENTS: Post line placement QUESTION FOR THE RADIOLOGIST: Check Line Position, Uncomplicated procedure check placement. ; Call/page results to 1222 PROTOCOL: AP(PA) view was obtained. COMPARISON: March [...] improving. Electronically signed by:Sunil Campbell. Transcribed by: [email or web address], User Resident: Electronically Signed by: SUNIL CAMPBELL @ 03/18/2017 03:55 PM Normal [facility] Comment on above: Order Comment: Check Line Position, Uncomplicated procedure check placement. ; Call/page results to 8945 PORTABLE CHEST 1 VIEW [facility] Abspmqqap6627 [place] [address] Patient Name: REMINGTON BARKER : 1955Sex: MAge: Race: WhiteMRN: [id number]. Location: [id number] Status: IVisit #: [id number] Date: 03/18/2017 4:05:00 AMCompleted Date: 03/18/2017 04:57 AMRequesting Provider: DORENE PLATA Attending Provider: ALEXI LOWERY Report Copy To: Signs & Symptoms: Post IntubationHistory: Patient history not availableComments: Check E.T. PositionExam: PORTABLE CHEST 1 VIEWAccession #: [id number] PORTAB LE CHEST 1 VIEW 03/18/2017 4:57 [...] cm. Electronically signed by:Giovanni Gabriel. Transcribed by: [email or web address], User Resident: Electronically Signed by: GIOVANNI GABRIEL @ 03/18/2017 09:41 AM Normal [facility] Comment on above: Order Comment: Other , right weakness left gaze pref VALPROIC ACIDon 03-18-2017 VALPROIC ACID (DEPAKOTE) 60 mcg/mL Normal 60-100 [facility] Comment on above: Performed By: #### 5 0103 ####[facility] [place] [address], [facility] AMMONIA BLOODon 03-17-2017 Ammonia 43 umol/L Normal 16-53 [facility] Comment on above: Performed By: #### 2 1408 ####[facility] [place] [address], [facility] CBC W/DIFFon 03-17-2017 Basophils Auto #/vol (Bld) 0.0 % Normal 0.0-2.0 [facility] Comment on above: Performed By: #### 5 0103 ####[facility] [place] [address], [facility] Eosinophils/100 leukocytes 0.0 % Normal 0.0-5.0 [facility] Comment on above: Performed By: #### 5 0103 ####[facility] Erythrocyte distribution width Auto Ratio (RBC) 13.5 % Normal 11.5-16.9 [facility] Comment on above: Performed By: #### 5 0103 ####[facility] [facility] [place] [address], [facility] Erythrocytes (RBC) 5.48 mill/mm3 Normal 4.30-5.90 [facility] Comment on above: Performed By: #### 5 0103 ####[facility] [facility].[address] Hematocrit (HCT) 48.8 % Normal 39.0-55.0 [facility] Comment on above: Performed By: #### 5 0103 ####[facility] [facility].[address] Hemoglobin mass conc (Bld) 16.5 g/dL High 13.9-16.3 [facility] Comment on above: Performed By: #### 5 0103 ####[facility] [facility] [place] [address], [facility] Lymphocytes/100 leukocytes 7.0 % Low 20.0-40.0 [facility] Comment on above: Performed By: #### 5 0103 ####[facility] [facility] [place] [address], [facility] MCH 30.2 pg Normal 24.0-32.0 [facility] Comment on above: Performed By: #### 5 0103 ####[facility] MCHC mass conc (RBC) 33.9 g/dL Normal 32.0-36.0 [facility] Comment on above: Performed By: #### 5 0103 ####[facility] MCV 89.2 fL Normal 80.0-100.0 [facility] Comment on above: Performed By: #### 5 0103 ####[facility] METHOD Manual blood smear examination performed Normal [facility] Comment on above: Performed By: #### 5 0103 ####[facility] [facility].[address] MONOS 6.0 % Normal 2-8 [facility] Comment on above: Performed By: #### 5 0103 ####[facility] OTHER 1 NORMAL RED CELL MORP HOLOGY SEEN Normal [facility] Comment on above: Performed By: #### 5 0103 ####[facility] [facility].[address] PLAT CNT 212 Thou/mm3 Normal 100-400 [facility] Comment on above: Performed By: #### 5 0103 ####[facility] SEGS 87.0 % High 50-70 [facility] Comment on above: Performed By: #### 5 0103 ####[facility] WBC (Leukocytes) 16.9 Thou/mm3 High 4.0-10.0 [facility] Comment on above: Performed By: #### 5 0103 ####[facility] COMP METABOLIC PANELon 03-17 Alanine aminotransferase (ALT) 31 U/L Normal 7-52 [facility] Comment on above: Performed By: #### 0 0121, 93007, 62731, 67388 ####[facility] Albumin 3.9 g/dL Normal 3.5-5.7 [facility] Comment on above: Performed By: #### 0 0121, 18685, 48580, 18864 ####[facility] ALKALINE PHOSPH 59 IU/L Normal 34-104 [facility] Comment on above: Performed By: #### 0 0121, 61228, 19572, 81492 ####[facility] Aspartate aminotransferase (AST) 58 U/L High 13-39 [facility] Comment on above: Performed By: #### 0 0121, 78777, 83701, 91079 ####[facility] Bilirubin (total) 0.7 mg/dL Normal 0.3-1.0 [facility] Comment on above: Performed By: #### 0 0121, 23244, 14949, 27465 ####[facility] [facility].[address] Calcium 8.4 mg/dL Low 8.6-10.3 [facility] Comment on above: Performed By: #### 0 0121, 71765, 46771, 13248 ####[facility] [place] [address], [facility] Chloride 109 mmol/L High 98-107 The [facility] Comment on above: Performed By: #### 0 0121, 33872, 81300, 30699 ####[facility] CO2 20 mmol/L Low 21-31 [facility] Comment on above: Performed By: #### 0 0121, 23175, 11430, 17172 ####[facility] Creatinine 1.32 mg/dL High 0.70-1.30 [facility] Comment on above: Performed By: #### 0 0121, 58017, 13459, 46020 ####[facility] eGFR (black) mL/min/{1.73_m2} Normal >60 [facility] Comment on above: Performed By: #### 0 0121, 13283, 06747, 04051 ####[facility]3000 [facility] eGFR (non-black) 55 ml/min/1.73sq m Abnormal >60 [facility] Comment on above: Performed By: #### 0 0121, 89334, 22254, 95311 ####[facility]3000 [facility].[address] Glucose mass conc 210 mg/dL High 70-100 [facility] Comment on above: Performed By: #### 0 0121, 62111, 20214, 29620 ####[facility]3000 [facility].[address] Potassium molar conc 3.7 mmol/L Normal 3.5-5.1 [facility] Comment on above: Performed By: #### 0 0121, 87280, 92305, 80268 ####[facility]3000 [facility].[address] Protein 6.2 g/dL Normal 6.0-8.3 [facility] Comment on above: Performed By: #### 0 0121, 53641, 53747, 83101 ####[facility] [facility] [place] [address], [facility] Sodium 139 mmol/L Normal 136-145 [facility] Comment on above: Performed By: #### 0 0121, 28068, 40736, 00078 ####[facility] [place] [address], [facility] Urea nitrogen 30 mg/dL High 7-25 [facility] Comment on above: Performed By: #### 0 0121, 84713, 47296, 63708 ####[facility] [facility] [place] [address], [facility] CT BRAIN PERFUSIONon 017 CT BRAIN PERFUSION [facility] [address] [place], [place] [id number] Patient Name: REMINGTON BARKER : 1955Sex: MAge: Race: WhiteMRN: [id number]. Location: EMERPatient Status: EVisit #: [id number] Date: 03/17/2017 5:20:00 PMCompleted Date: 03/17/2017 06:15 PMRequesting Provider: DONNA ADKINS Attending Provider: DONNA ADKINS Report Copy To: Signs & Symptoms: OtherHistory: Patient history not availableComments: Other, right weakness left gaze prefExam: CT BRAIN PERFUSIONAccession #: [id number] CT BRAIN PERFUSION, CTA NECK 03/17/2017 6:15 PM EDT SIGNS AND SYMPTOMS: Stroke alert, rt side weakness with aphasia today. QUESTION FOR THE RADIOLOGIST: Other, right weakness left gaze pref CONTRAST: Contrast: OMNIPAQUE 350 (LOCM), 50 milliliter, Intravenous (accession [id number]), Contrast: OMNIPAQUE 350 (LOCM), 70 milliliter, Intravenous (accession [id number]) TECHNIQUE: Multi-detector CT angiography head and neck [...] Electronically signed by:Jayashree Lin M.D.. Transcribed by: [email or web address], User Resident: Electronically Signed by: JAYASHREE LIN @ 03/17/2017 06:24 PM Normal [facility] Comment on above: Order Comment: Other , right weakness left gaze pref CTA NECKon 03-17-2017 CTA NECK [facility] [address] [place] [address] Patient Name: REMINGTON BARKER : 1955Sex: MAge: Race: WhiteMRN: [id number]. Location: EMERPatient Status: EVisit #: [id number] Date: 03/17/2017 5:20:00 PMCompleted Date: 03/17/2017 06:15 PMRequesting Provider: DONNA ADKINS Attending Provider: DONNA ADKINS Report Copy To: Signs & Symptoms: OtherHistory: Patient history not availableComments: right weakness left gaze pref, aphasiaExam: CTA NECKAccession #: [id number] CT BRAIN PERFUSION, CTA NECK 03/17/2017 6:15 PM EDT SIGNS AND SYMPTOMS: Stroke alert, rt side weakness with aphasia today. QUESTION FOR THE RADIOLOGIST: Other, right weakness left gaze pref CONTRAST: Contrast: OMNIPAQUE 350 (LOCM), 50 milliliter, Intravenous (accession [id number]), Contrast: OMNIPAQUE 350 (LOCM), 70 milliliter, Intravenous (accession [id number]) TECHNIQUE: Multi-detector CT angiography head and neck [...] Electronically signed by:Jayashree Lin M.D.. Transcribed by: [email or web address], User Resident: Electronically Signed by: JAYASHREE LIN @ 03/17/2017 06:24 PM Normal [facility] Comment on above: Order Comment: right weakness left gaze pref, aphasia HEMOGLOBIN A1Con 03-17-2017 Glucose mass conc 177 mg/dL High 70-126 [facility] Comment on above: Order Comment: Yes: Add to Previous draw if able Performed By: #### 5 0103 ####[facility] [facility].[address] Hemoglobin A1c/Hemoglobin.tota l mass fraction (Bld) 7.8 % High 4.0-6.0 [facility] Comment on above: Order Comment: Yes: Add to Previous draw if able Performed By: #### 5 0103 ####[facility] [facility] [place] [address], [facility] KEPPRA ILon 03-17-2017 [place] Normal [facility] KEPPRA 3 ug/mL Normal [facility] Comment on above: Result Comment: A re ference range for Keppra has not been well established. The proposed therapeutic range for seizure control is 6-46 ug/mL. Pharmacokinetics of Keppra are affected by renal function. The relationship between serum concentrations and toxicity is not known. LACTATE BLOODon 03-17-2017 Lactate 1.1 mmol/L Normal .5-2.2 [facility] Comment on above: Performed By: #### 1 0054 ####[facility] MAGNESIUM BLOODon 03-17-2017 Magnesium 2.2 mg/dL Normal 1.9-2.7 [facility] Comment on above: Performed By: #### 0 0121, 50711, 44601, 59986 ####[facility] MRI BRAIN WO CONTRASTon 02-22 MRI BRAIN WO CONTRAST [facility] [address] [place] [id number] Patient Name: REMINGTON BARKER : 1955Sex: MAge: Race: WhiteMRN: [id number]. Location: EMERPatient Status: IVisit #: [id number] Date: 03/17/2017 6:35:00 PMCompleted Date: 03/17/2017 08:48 PMRequesting Provider: DONNA ADKINS Attending Provider: DONNA ADKINS Report Copy To: Signs & Symptoms: AphasiaHistory: Patient history not availableComments: R/O CVA, aphasia left preference right weaknessExam: MRI BRAIN WO CONTRASTAccession #: [id number] MRI BRAIN WO CONTRAST 03/17/2017 8:48 PM EDT SIGN AND SYMPTOMS: Aphasia TECHNOLOGIST COMMENTS: Patient found unresponsive by neighbor earlier today. Transfer from [facility]. Patient has right side weakness and [...] cells Electronically signed by:Ibrahima Garcia. Transcribed by: [email or web address], User Resident: Electronically Signed by: IBRAHIMA GARCIA @ 03/18/2017 11:02 AM Normal [facility] Comment on above: Order Comment: Other , right weakness left gaze pref PHOSPHORUS BLOODon 7 Phosphate 3.2 mg/dL Normal 2.5-5.0 [facility] Comment on above: Performed By: #### 0 0121, 81189, 39239, 60347 ####[facility] [place] [address], [facility] TSHon 03-17-2017 Thyroid stimulating hormone (TSH) 0.85 MICRO-IU/ML Normal 0.34-5.60 [facility] Comment on above: Performed By: #### 0 0121, 82722, 49741, 59212 ####[place] [address] Vital Signs Date Time Vital Sign Value Performing Clinician Facility 08-09-2024 09:13-0500 Body height 180.3 cm Arlene Bergr PROMOTIONS REPRESENTATIVE Work Phone: [facility] 08-09-2024 09:13-0500 Diastolic blood pressure 86 mm[Hg] Arlene Hernandezmor PROMOTIONS REPRESENTATIVE Work Phone: [facility] 08-09-2024 09:13-0500 Heart rate 76 /min Arlene Marymor PROMOTIONS REPRESENTATIVE Work Phone: [facility] 08-09-2024 09:13-0500 SaO2% (BldA) [Mass fraction] 96 % Arlene Hernandezmor PROMOTIONS REPRESENTATIVE Work Phone: [facility] 08-09-2024 09:13-0500 Systolic blood pressure 148 mm[Hg] Arlene Hernandezmor PROMOTIONS REPRESENTATIVE Work Phone: [facility] 05-11-2024 08:20-0500 Body height 180.3 cm Nba Ulises DO Work Phone: [facility] 05-11-2024 08:20-0500 Body mass index (BMI) [Ratio] 25.27 kg/m2 Nba Ulises DO Work Phone: [facility] 05-11-2024 08:20-0500 Body weight 82.19 kg Nba Ulises DO Work Phone: [facility] 05-11-2024 08:20-0500 Diastolic blood pressure 88 mm[Hg] Nba Ulises DO Work Phone: [facility] 05-11-2024 08:20-0500 Heart rate 61 /min Nba Ulises DO Work Phone: [facility] 05-11-2024 08:20-0500 SaO2% (BldA) [Mass fraction] 96 % Nba Ulises DO Work Phone: [facility] 05-11-2024 08:20-0500 Systolic blood pressure 140 mm[Hg] Nba Montgomery DO Work Phone: [facility] 04-09-2024 10:47-0400 Blood Pressure Location Chris NOONAN [facility] 04-09-2024 10:47-0400 Diastolic blood pressure 77 mm[Hg] Chris NOONAN [facility] 04-09-2024 10:47-0400 Heart rate 84 /min Chris NOONAN [facility] 04-09-2024 10:47-0400 Systolic blood pressure 136 mm[Hg] Chris NOONAN [facility] 12-31-2023 08:43-0400 Body height 170.18 cm [facility] 12-31-2023 08:43-0400 Body mass index (BMI) [Ratio] 27.6 kg/m2 [facility] 12-31-2023 08:43-0400 Body weight 79.94 kg [facility] 12-31-2023 08:43-0400 Diastolic blood pressure 89 mm[Hg] [facility] 12-31-2023 08:43-0400 Heart rate 71 /min [facility] 12-31-2023 08:43-0400 Respiratory rate 12 /min [facility] 12-31-2023 08:43-0400 Systolic blood pressure 139 mm[Hg] [facility] 12-22-2023 10:20-0400 Blood Pressure Location Chris NOONAN [facility] 12-22-2023 10:20-0400 Diastolic blood pressure 74 mm[Hg] Chris NOONAN [facility] 12-22-2023 10:20-0400 Heart rate 69 /min Chriskristi NOONAN [facility] 12-22-2023 10:20-0400 Respiratory rate 16 /min Chris NOONAN [facility] 12-22-2023 10:20-0400 Systolic blood pressure 139 mm[Hg] Chris NOONAN [facility] 09-25-2023 09:05-0400 Body height 170.18 cm [facility] 09-25-2023 09:05-0400 Body mass index (BMI) [Ratio] 28 kg/m2 [facility] 09-25-2023 09:05-0400 Body weight 81.36 kg [facility] 09-25-2023 09:05-0400 Diastolic blood pressure 82 mm[Hg] [facility] 09-25-2023 09:05-0400 Heart rate 67 /min [facility] 09-25-2023 09:05-0400 Respiratory rate 12 /min [facility] 09-25-2023 09:05-0400 Systolic blood pressure 131 mm[Hg] [facility] 12-18-2022 09:00-0400 Body height 170.18 cm Gasper Ball Other [facility] [employer] Other 12-18-2022 09:00-0400 Body mass index (BMI) [Ratio] 28.69 kg/m2 Gasper Ball Other [facility] [employer] Other 12-18-2022 09:00-0400 Body weight 83.1 kg Gasper Ball Other [facility] [employer] Other 12-18-2022 09:00-0400 Diastolic blood pressure 88 mm[Hg] Gasper Ball Other [facility] [employer] Other 12-18-2022 09:00-0400 Respiratory rate 12 /min Gasper Ball Other [employer] Other 12-18-2022 09:00-0400 Systolic blood pressure 139 mm[Hg] Gasper Ball Other [employer] Other 09-17-2022 10:00-0400 Body height 170.18 cm Gasper Ball Other [employer] Other 09-17-2022 10:00-0400 Body mass index (BMI) [Ratio] 29.29 kg/m2 Gasper Ball Other [employer] Other 09-17-2022 10:00-0400 Body weight 84.82 kg Gasper Ball Other [employer] Other 09-17-2022 10:00-0400 Diastolic blood pressure 73 mm[Hg] Gasper Ball Other [employer] Other 09-17-2022 10:00-0400 Respiratory rate 12 /min Gasper Ball Other [employer] Other 09-17-2022 10:00-0400 Systolic blood pressure 119 mm[Hg] Gasper Ball Other [employer] Other Encounters Encounter Date Encounter Type Care Provider Facility Start: 08-12-2024 End: 08-17-2024 Telephone encounter Vikram THORNTON Start: 08-09-2024 End: 08-09-2024 Bamboo flowsheet Arlene Garrison PROMOTIONS REPRESENTATIVE Work Phone: [facility] Start: 08-09-2024 End: 08-09-2024 Bamboo flowsheet Arlene Garrison PROMOTIONS REPRESENTATIVE Work Phone: [facility] Start: 08-09-2024 End: 08-09-2024 Office outpatient visit 25 minutes Arlene Garrison PROMOTIONS REPRESENTATIVE Work Phone: [facility] [place] Comment on above: Seizure (CMS/HCC) (P rimary Dx); Bilateral deafness; Tremor; Medication monitoring encounter Start: 08-09-2024 End: 08-09-2024 ambulatory ARLENE GARRISON Not Available Start: 05-11-2024 End: 05-11-2024 Bamboo flowsheet Nba Montgomery DO Work Phone: [facility] [address] Start: 05-11-2024 End: 05-11-2024 Bamboo flowsheet Nba Montgomery DO Work Phone: [facility] [address] Start: 05-11-2024 End: 05-11-2024 Office outpatient visit 25 minutes Nba Montgomery DO Work Phone: [facility] [place] [address] Comment on above: Seizure (CMS/HCC) (P rimary Dx); Bilateral deafness; Tremor; Medication monitoring encounter Start: 05-11-2024 End: 05-11-2024 ambulatory NBA MONTGOMERY Not Available Start: 04-09-2024 End: 04-09-2024 ambulatory Chris NOONAN Facility:[facility] Start: 04-09-2024 End: 04-09-2024 Patient encounter procedure Chris NOONAN [facility] Start: 03-29-2024 End: 03-29-2024 ambulatory DO Gasper Thurman Work Phone: [facility] Work Phone: Start: 03-29-2024 End: 03-29-2024 Departed Referred DO Gasper Cuca Work Phone: [facility]-LAB [facility] Start: 03-29-2024 End: 03-29-2024 ambulatory Chris NOONAN Facility:CD:[id number] Start: 01-21-2024 End: 01-21-2024 Patient encounter procedure DO Gasper Thurman Work Phone: [facility] [place] Work Phone: Start: 01-21-2024 End: 01-21-2024 ambulatory DO Gasper Thurman Work Phone: [facility] Work Phone: Start: 12-31-2023 End: 12-31-2023 ambulatory [facility] Work Phone: Start: 12-31-2023 End: 12-31-2023 Patient encounter procedure [facility] Work Phone: Start: 12-22-2023 End: 12-22-2023 ambulatory Chriskristi NOONAN Facility:[facility] Start: 12-22-2023 End: 12-22-2023 Patient encounter procedure Chris Quinn SHAISTA [facility] [place] Start: 11-14-2023 ambulatory Chris NOONAN Facility :[facility] Start: 11-11-2023 Non-patient / Non-visit [facility] Work Phone: Start: 10-28-2023 End: 10-28-2023 ambulatory NBA MONTGOMERY Not Available Start: 10-03-2023 Non-patient / Non-visit [facility] Work Phone: Start: 09-25-2023 End: 09-25-2023 ambulatory [facility] Work Phone: Start: 09-25-2023 End: 09-25-2023 Patient encounter procedure [facility] Work Phone: Start: 06-30-2023 End: 06-30-2023 ambulatory Gasper Thurman Other [employer] Other Start: 06-30-2023 Telephone encounter Gasper DAILY G [facility] Start: 06-22-2023 End: 06-22-2023 ambulatory Gasper Thurman Other [employer] Other Start: 06-22-2023 Telephone encounter Gasper [facility] Start: 06-05-2023 End: 06-05-2023 ambulatory Gasper Thurman Other [employer] Other Start: 06-05-2023 Telephone encounter Gasper Cuca FP G [facility] Start: 03-18-2023 End: 03-18-2023 ambulatory Gasper Thurman Other [employer] Other Start: 03-18-2023 Telephone encounter Gasper Thurman FP G [facility] Start: 12-18-2022 End: 12-18-2022 ambulatory Gasper Thurman Other [employer] Other Start: 12-18-2022 Office outpatient vi sit 25 minutes Gasper Thurman [facility] Start: 10-17-2022 End: 10-18-[address] GASPER THURMAN Facility:[facility] Start: 09-17-2022 End: 09-17-2022 ambulatory Gasper Thurman Other [employer] Other Start: 09-17-2022 Encounter for genera l adult medical examination without abnormal findings Gasper Thurman [facility] Start: 09-17-2022 Periodic preventive med est patient 65yrs& older Gasper Thurman [facility] Start: 09-15-2022 Encounter for genera l adult medical examination without abnormal findings DR GASPER THURMAN [facility] Start: 09-12-2022 End: 09-13-[address] GASPER THURMAN Facility:[facility] Start: 09-12-2022 End: 09-13-2022 Encounter for general adult medical examination without abnormal findings DR GASPER THURMAN Facility:[facility] Start: 06-20-2022 End: 06-20-[address] CADENCE THORNTON Facility:[facility] Start: 06-11-2022 End: 06-12-[address] GASPER THURMAN Facility:[facility] Start: 03-13-2022 Adult health examination Gasper Thurman Other [employer] Other Start: 03-08-2022 End: 03-09-[address] GASPER THURMAN Facility:[facility] Start: 11-07-2021 Patient encounter procedure [facility] Start: 01-30-2021 End: 01-31-2021 ambulatory UNKNOWN PROVIDER Facility:[facility] Start: 01-12-2021 End: 01-12-2021 ambulatory UNKNOWN PROVIDER Facility:[facility] Start: 01-08-2021 End: 01-09-2021 ambulatory [facility] Start: 01-08-2021 End: 01-08-2021 Subsequent hospital visit by physician [facility] Start: 01-01-2021 End: 01-02-2021 ambulatory [facility] Start: 01-01-2021 End: 01-01-2021 Subsequent [...] UNKNOWN PROVIDER Facili ty:[facility] Start: 12-13-2020 ambulatory NESTORELADIO BROOKS Facilit y:[facility] Start: 12-11-2020 End: 12-11-2020 ambulatory UNKNOWN PROVIDER Facility:[facility] Start: 12-10-2020 ambulatory NESTOR BROOKS Facilit y:[facility] Start: 12-08-2020 End: 12-08-2020 ambulatory NESTOR LASINSKI Facility:[facility] Start: 12-08-2020 End: 12-28-2020 Evaluation and management of inpatient IP PHYSICAL THERAPY SERVICE REQUEST Facility:[facility] Start: 03-17-2017 End: 03-28-2017 Evaluation and management of inpatient GASPER THURMAN Facility:[facility] Procedures Date Procedure Procedure Detail Performing Clinician Start: 03-29-2024 Transrectal biopsy o f prostate using ultrasound guidance Chris NOONAN Start: 01-21-2024 MR prostate wo/w con DO Gasper Thurman Work Phone: Start: 09-12-[address] DAVIS [place] Comment on above: Performed By: #### P [facility] ####[facility] [address] [place], [place] [address]PgLionel Gore Start: 01-08-2021 Comprehensive metabo lic panel Yuko Hunt MD Work Phone: Start: 01-01-2021 Comprehensive metabo lic panel Yuko Hunt MD Work Phone: Start: 12-08-2020 Perq drainage pleura insert cath w/imaging Chris NOONAN Start: 11-27-2020 Exploratory laparotomy Chriskristi NOONAN Start: 03-19-2017 Drainage of Spinal C [...] Guidance YUKO THORNE Start: 03-17-2017 MEASUREMENT OF CUT OFF MACHINE OPERATOR E LECTR ACTIVITY, REED OR WIND INSTRUMENT TUNER APPROACH ENRIQUE OSORIO Start: 03-17-2017 MONITORING OF CUT OFF MACHINE OPERATOR EL ECTR ACTIVITY, REED OR WIND INSTRUMENT TUNER APPROACH HOA CHANEL Start: 01-23-2017 General examination of patient Gasper Thurman Other Cardiac catheter (ph ysical object) Chriskristi NOONAN Colonoscopy Chriskristi NOONAN Depression screening Cindi Thurman Other Screening for malign ant neoplasm of colon Gasper Thurman Other Plan of Treatment Date Care Activity Detail Author Start: 11-04-2024 End: 11-04-2024 Patient encounter procedure [facility]Y [facility] [address] Start: 08-09-2024 End: 08-09-2025 CBC W Auto Differential panel - Blood CBC and differential Lab Routine Seizure (CMS/HCC) Expected: 08/09/2024 (Approximate), Expires: 08/09/2025 [facility] Comment on above: Expected: 08/09/2024 (Approximate), Expi res: 08/09/2025 Start: 08-09-2024 End: 08-09-2025 Comprehensive metabolic 2000 panel - Serum or Plasma Comprehensive metabolic panel Lab Routine Seizure (CMS/HCC) Expected: 08/09/2024 (Approximate), Expires: 08/09/2025 [facility] Work Phone: Comment on above: Expected: 08/09/2024 (Approximate), Expi res: 08/09/2025 Start: 08-09-2024 End: 08-09-2025 Levetiracetam level Levetiracetam level Lab Routine Seizure (CMS/HCC) Expected: 08/09/2024 (Approximate), Expires: 08/09/2025 [facility] Comment on above: Expected: 08/09/2024 (Approximate), Expi res: 08/09/2025 Start: 08-09-2024 End: 08-09-2025 Valproic acid level, total Valproic acid level, total Lab Routine Seizure (CMS/HCC) Expected: 08/09/2024 (Approximate), Expires: 08/09/2025 [facility] Comment on above: Expected: 08/09/2024 (Approximate), Expi res: 08/09/2025 Start: 08-09-2024 End: 08-09-2024 Patient encounter procedure 08/09/2024 9:20 AM EST Office Visit [facility]NT[facility] [address] [place], [place] [address] [address] Arlene Garrison NP [address] [place] [address] Arrived [facility] Comment on above: Arrived Start: 05-11-2024 End: 11-19-2024 Patient encounter procedure 05/11/2024 8:30 AM EST [facility] [address] [place] [id number] Nba Montgomery DO [address] [place] [address] Arrived [facility] Comment on above: Arrived Start: 03-29-2024 [facility] Start: 02-22-2024 Influenza vaccination Influenza Vaccine (#1) [facility] Start: 01-21-2024 MR Prostate WO and W contrast IV [facility] Start: 01-21-2024 MR prostate wo/w con MR prostate wo/w con [facility] Start: 02-21-2022 Influenza [facility] Start: 01-08-2022 Creatinine measurement Creatinine monitoring [employer] Phone: Start: 01-08-2022 Potassium monitoring Potassium monitoring [employer] Phone: Start: 01-01-2022 Creatinine measurement Creatinine monitoring [employer] Phone: Start: 01-01-2022 Potassium monitoring Potassium monitoring [employer] Phone: Start: 2021 ADVANCE DIRECTIVE DISCUSSION ADVANCE DIRECTIVE DISCUSSION [facility] Start: 2021 Pneumococcal Vaccine: 65+ Years (1 of 1 - PCV) Pneumococcal Vaccine: 65+ Years (1 of 1 - PCV) [facility] Start: 2021 PNEUMOVAX AGE 65 AND OVER WITH 5YR LOOKBACK (#1) PNEUMOVAX AGE 65 AND OVER WITH 5YR LOOKBACK (#1) [facility] Start: 02-21-2021 Influenza vaccination Flu vaccine (#1) [employer] Phone: Start: 2011 PROSTATE CANCER SCREENING DISCUSSION PROSTATE CANCER SCREENING DISCUSSION [facility] Start: 2006 Shingles Vaccine (1 of 2) Shingles Vaccine (1 of 2) [employer] Phone: Start: 02-02-2007 SHINGRIX VACCINE (1 of 2) SHINGRIX VACCINE (1 of 2) [facility] Start: 2001 COLOGUARD (FIT-DNA) COLOGUARD (FIT-DNA) [facility] Start: 2001 Colonoscopy COLONOSCOPY [facility] Start: 2001 COLORECTAL CANCER SCREENING COLORECTAL CANCER SCREENING [facility] Start: [address] COLONOGRAPHY [facility] Start: 2001 DIABETES SCREEN DIABETES SCREEN [facility] Start: 2001 FECAL OCCULT BLOOD FECAL OCCULT BLOOD [facility] Start: 2001 Screening for malignant neoplasm of colon Colon cancer screen colonoscopy [facility] Phone: Start: 2001 SIGMOIDOSCOPY SIGMOIDOSCOPY [facility] Start: 1991 LIPID SCREEN LIPID SCREEN [facility] Start: 1975 DTaP/Tdap/Td vaccine (1 - Tdap) DTaP/Tdap/Td vaccine (1 - Tdap) [facility] Phone: Start: 1975 Urine microalbumin profile DTAP,TDAP,TD (1 - Tdap) [facility] Start: 1974 Diabetic microalbuminuria test Diabetic microalbuminuria test [facility] Phone: Start: 1974 HEPATITIS C SCREENING HEPATITIS C SCREENING [facility] Start: 1974 HIV SCREENING HIV SCREENING [facility] Start: 1971 HIV screening HIV screen [facility] Phone: Start: 1968 Adult depression screening assessment DEPRESSION SCREENING [facility] Start: 1968 COVID-19 Vaccine (1) COVID-19 Vaccine (1) [facility] Phone: Start: 1966 Diabetic foot examination Diabetic foot exam [facility] Phone: Start: 1966 Diabetic retinal exam Diabetic retinal exam [facility] Phone: Start: 1966 Hemoglobin A1c measurement A1C test (Diabetic or Prediabetic) [facility] Phone: Start: 1966 Lipid panel Lipid screen [facility] Phone: Start: 1962 Pneumococcal 0-64 years Vaccine (1 of 2 - PPSV23) Pneumococcal 0-64 years Vaccine (1 of 2 - PPSV23) [facility] Phone: Start: 1961 COVID-19 VACCINE (#1) COVID-19 VACCINE (#1) [facility] Start: 1956 Hepatitis C screening Hepatitis C screen [facility] Phone: Start: 1956 Screening for malignant neoplasm of colon [facility] Immunizations Immunization Date Immunization Notes Care Provider Yasmine miguel 03-25-2024 influenza virus vaccine, unspecified formulation Nba Montgomery DO Work Phone: [facility] 07-26-2020 COVID-19 Vaccine Moderna - Documentation Purposes Only Gasper Thurman Other [facility] 06-27-2020 COVID-19 Vaccine Moderna - Documentation Purposes Only Gasper Thurman Other [facility] Payers Date Payer Category Payer Self-pay 2023 Unknown [id number] 2022 Blue Cross Blue Shield BCBS [id number] 2022 Blue Cross Blue Shield [id number] 2020 Unknown MMO MMO [employer]US [id number] 2020-Present [phone] [address] [place] [address] O [id number]. [id number] 2017 Unknown [id number] 2016 Unknown [id number] 1956 Unknown [id number] 2.16.840.1.524161.3.579.2. 173 1956 Unknown [id number] 2.16.840.1.900121.3.579.2. 173 1956 Unknown [id number] 2.16.840.1.784787.3.579.2. 73 1956 Unknown [id number] 2.16.840.1.529613.3.579.2. 73 1956 Unknown [id number] 2.16.840.1.646827.3.579.2. 73 1956 Unknown [id number] 2.16.840.1.583574.3.579.2. 73 1956 Unknown [id number] 2.16.840.1.553735.3.579.2. 73 1956 Unknown [id number] 2.16.840.1.950297.3.579.2. 732 1956 Unknown [id number] 2.16.840.1.894339.3.579.2. 732 1956 Unknown [id number] 2.16.840.1.926883.3.579.2. 73 1956 Unknown [id number] 2.16.840.1.332169.3.579.2. 73 1956 Unknown [id number] 2.16.840.1.844981.3.579.2. 73 1956 Unknown [id number] 2.16.840.1.907045.3.579.2. 732 1956 Unknown [id number] 2.16.840.1.400781.3.579.2. 732 1956 Unknown [id number] 2.16.840.1.475291.3.579.2. 732 1956 Unknown [id number] 2.16.840.1.304357.3.579.2. 732 1956 Unknown [id number] 2.16.840.1.531717.3.579.2. 732 1956 Unknown [id number] 2.16.840.1.719630.3.579.2. 732 1956 Unknown [id number] 2.16840.1.074736.3.579.2. 732 1956 Unknown [id number] 2.840.1.766037.3.579.2. 732 1956 Unknown [id number] 2.16.840.1.429372.3.579.2. 732 1956 Unknown [id number] 2.840.1.142086.3.579.2. 732 1956 Unknown [id number] 2.16840.1.748281.3.579.2. 732 1956 Unknown [id number] 2.16.840.1.286234.3.579.2. 732 1956 Unknown [id number] 2.16.840.1.761618.3.579.2. 732 1956 Unknown [id number] 2.16.840.1.954604.3.579.2. 593 1956 Unknown [id number] 2.16.840.1.629692.3.579.2. 593 1956 Unknown [id number] 2.16.840.1.406747.3.579.2. 593 1956 Unknown [id number] 2.16.840.1.615413.3.579.2. 593 1956 Unknown [id number] 2.16.840.1.538501.3.579.2. 593 1956 Unknown [id number] 2.16.840.1.106480.3.579.2. 727 1956 Unknown [id number] 2.16.840.1.843989.3.579.2. 727 1956 Unknown [id number] 2.16.840.1.210367.3.579.2. 727 1956 Unknown [id number] 2.16.840.1.946162.3.579.2. 727 1956 Unknown [id number] 2.16.840.1.202628.3.579.2. 1259 1956 Unknown [id number] 2.16.840.1.224216.3.579.2. 1259 1956 Unknown [id number] 2.16.840.1.261703.3.579.2. 1259 Medicare Medicare-OP No Part B [id number] Unknown [id number] 2.16840.1.570564.3.579.2. 531 Unknown [id number] 2.16840.1.238953.3.579.2. 531 Social History Date Type Detail Facility Start: 03-28-2017 Tobacco smoking stat NHIS Unknown if ever smoked [facility] Start: 1955 Sex Assigned At Not on file [employer] Phone: Start: 10-29-2023 End: 05-11-2024 Sex Assigned At [facility] Start: 1955 Sex Assigned At Male [facility] Start: 10-29-2023 End: 12-22-2023 Tobacco smoking status Never smoked tobacco (finding) [facility] Tobacco smoking status Never [facility] Start: 10-29-2023 Tobacco use and exposure Smokeless tobacco non-user [facility] Start: 10-29-2023 End: 05-11-2024 Alcoholic beverage intake Lifetime non-drinker (finding) [facility] Start: 10-29-2023 End: 05-11-2024 History of Social function [facility] Functional Status Date Assessment Result Facility 04-09-2024 Functional Status N/A [facility] 12-22-2023 Functional Status N/A [facility] Clinical Notes 12-08-2020 to 08-12-2024 Telephone Encounter - Vikram Owusu MA - 08/12/2024 10:40 AM ESTTelephone Encounter - Vikram Owusu MA - 08/12/2024 10:40 AM Analia Garrison NP - 08/09/2024 9:20 AM EST Note Date & Type Note Facility 08-12-2024 Telephone encounter Note 08/09/2024 Samia will call and give us the patient PATCH SANDER number, this way we can call him direct if needed and will put on HH referral as it is not listed Samia calls with the PATCH SANDER number: [phone] [facility] 08-12-2024 Miscellaneous Notes 08/09/2024 Samia will call and give us the patient PATCH SANDER number, this way we can call him direct if needed and will put on HH referral as it is not listed Samia calls with the PATCH SANDER number: [phone] documented in this encounter [facility] 08-09-2024 History of Presen t illness Narrative Images from the original note were not included. Objective Chief Complaint Patient presents with Seizures Subjective Remington is here today with a friend. The patient ran out of medication. She states a lot of medications were or way to much. She states she gave him a pill box to try to keep track of medications. He reports taking the medications. The patient denies any seizures. The tremor is better than it used to be. The patient is still working. Past Medical History: Diagnosis Date Deaf Seizures (CMS/HCC) Tremor Past Surgical History: Procedure Laterality Date COLONOSCOPY CT ANGIOGRAM NECK 03/17/2017 CT ANGIOGRAM NECK IR CHEST DRAIN PLACEMENT 12/08/2020 IR CHEST DRAIN PLACEMENT 12/08/2020 Family History Family history unknown: Yes Social History Tobacco Use Smoking status: Never Smokeless tobacco: Never Substance Use Topics Alcohol use: Never Allergies: Patient has no known allergies. General: No fever or chills HEENT: No nasal congestion or runny nose Pulmonary: No shortness of breath or cough Cardiovascular: No chest pain or palpitations GI: No nausea or vomiting : No dysuria or hematuria Musculoskeletal: No new aches or pains or muscle weakness Infectious: no recurrent fevers or infections Dermatologic: No rashes or skin lesions Neurologic: No new headaches or dizziness Vitals: 08/09/24 0913 BP: 148/86 Pulse: 76 SpO2: 96% Body mass index is 25.27 kg/m . Neurologic exam: Mental status: Awake, alert to person, place and time. Memory: mild MRDD Attention and concentration are normal. Fund of knowledge: mild MRDD HEENT: NC/AT Cranial nerves: CN II: Visual acuity is normal. Visual cooper full to confrontation. CN III, IV, : pupils equal round and reactive to light. Extraocular movements intact. No ptosis present. CN V: Facial sensation is normal. CN VII: wnl CN VIII: deaf CN IX and X: Palate elevates symmetrically. Normal gag reflex. CN XI: Shoulder shrug is normal bilaterally. CN XII: Tongue is midline without atrophy or fasciculation. Speech: PT is deaf few words with dysarthria consistent with hearing loss Pronator drift: Negative bilateral upper extremity Coordination: Intact, no signs of dysmetria Good finger to nose and rapid alternating movements Sensory: Sensation is intact to light, temperature and vibratory touch throughout four extremities. Motor: LUE 5/5 RUE 5/5 LLE 5/5 RLE 5/5 Tone: Physiologic, no tremor, bradykinesia or rigidity DTR: Biceps, BR 2/4 Patellar 2/4 Gait: Normal to casual gait Romberg's Negative Review and summary of old records: Assessment/Plan Diagnoses and all orders for this visit: Seizure ([facility]) - Comprehensive metabolic panel; Future - CBC and differential; Future - Levetiracetam level; Future - Valproic acid level, total; Future Bilateral deafness Tremor Medication monitoring encounter 69-year-old male who is deaf with an underlying seizure disorder/ epilepsy and mild MR. He remains controlled with the current medication. He has not had any seizures in a while and is doing well. He no longer drives. He does state he has missed a dose of medication here and there. Samia that is with him today brings in his meds. She has been helping with a pill store sales leader when able. She states he had multiple medications/some bottles with more in them than there should be. Patient does live in [place] and his only family around is a brother in [place]. Samia and another woman Britni know him from the hospital and have kind heartedly been helping him some. He typically takes [employer] transportation service to work. He does ride his electric bike on the bike trail when it is nice out. He states no accidents. He knows where the trail ends and to look for traffic. I do believe it would be beneficial for him to have someone from home health check in on him and help with a pill store sales leader weekly and we will order this. He does have a P[employer] SANDER phone number that connects with a spa concierge. He will be able to communicate with them this way. . His brother normally comes in as a spa concierge and his belt changer. Although, he is not here today with him. We were unable to track down any recent lab work. His last Depakote level was 90 and levetiracetam level was 47. We did order updated labwork. . 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 They understand that there is medication for the tremor but it is not problematic enough for meds at this time. 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 . . . 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 The diagnosis was all discussed with the patient. All questions were answered and they agreed with the treatment plan. Patient will call if there are any new issues or questions. Pt has been fully educated on their diagnosis, treatment options, follow up plan, and return instructions Return to clinic: Keep appointment in October documented in this encounter [facility] 05-11-2024 History of Presen t illness Narrative Lola Barker is a 68 y.o. male is here for a follow up. His brother is with him today. He states that the patient has not told him of any seizures since he was last here. He denies having any other issues or changes. Overall doing well. He is tolerating the medications. He is not missing doses that brother is aware of. He had a bx for prostate as his PSA went high but reportedly that all came out good. He is following with urology. He has the little tremor and that has stayed the same. It is not interfering with his activities. 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 They would like to know if there is a medication for tremor that he can take. But they do not feel that it interfering with his activities. No other new concerns. Objective Chief Complaint Patient presents with Seizures Lola Barker, 68 y.o., male HPI Past Medical History: Diagnosis Date Deaf Seizures (CMS/HCC) Tremor Past Surgical History: Procedure Laterality Date COLONOSCOPY CT ANGIOGRAM NECK 03/17/2017 CT ANGIOGRAM NECK IR CHEST DRAIN PLACEMENT 12/08/2020 IR CHEST DRAIN PLACEMENT 12/08/2020 Family History Family history unknown: Yes Social History Tobacco Use Smoking status: Never Smokeless tobacco: Never Substance Use Topics Alcohol use: Never Allergies: Patient has no known allergies. General: No fever or chills HEENT: No nasal congestion or runny nose Pulmonary: No shortness of breath or cough Cardiovascular: No chest pain or palpitations GI: No nausea or vomiting : No dysuria or hematuria Musculoskeletal: No new aches or pains or muscle weakness Infectious: no recurrent fevers or infections Dermatologic: No rashes or skin lesions Neurologic: No new headaches or dizziness Vitals: 05/11/24 0820 BP: 140/88 Pulse: 61 SpO2: 96% Body mass index is 25.27 kg/m . weight: 181 lb 3.2 oz Neurologic exam: Mental status: Awake, alert to person, place and time. Memory: mild MRDD Attention and concentration are normal. Fund of knowledge: mild MRDD HEENT: NC/AT Cranial nerves: CN II: Visual acuity is normal. Visual cooper full to confrontation. CN III, IV, : pupils equal round and reactive to light. Extraocular movements intact. No ptosis present. CN V: Facial sensation is normal. CN VII: wnl CN VIII: deaf CN IX and X: Palate elevates symmetrically. Normal gag reflex. CN XI: Shoulder shrug is normal bilaterally. CN XII: Tongue is midline without atrophy or fasciculation. Speech: PT is deaf few words with dysarthria consistent with hearing loss Pronator drift: Negative bilateral upper extremity Coordination: Intact, no signs of dysmetria Good finger to nose and rapid alternating movements Sensory: Sensation is intact to light, temperature and vibratory touch throughout four extremities. Motor: LUE 5/5 RUE 5/5 LLE 5/5 RLE 5/5 Tone: Physiologic, no tremor, bradykinesia or rigidity DTR: Biceps, BR 2/4 Patellar 2/4 Gait: Normal to casual gait Romberg's Negative Review and summary of old records: Assessment/Plan There are no diagnoses linked to this encounter. 68-year-old male who is deaf with an underlying seizure disorder/ epilepsy and mild MR.. He remains controlled with the current medication. He has not had any seizures in a while and is doing well. He no longer drives. His last Depakote level was 90 and levetiracetam level was 47. He has not been missing any doses. His brother comes in as a spa concierge and his belt changer. We will try to track down his most recent lab work. 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 This appears to be an essential tremor. Plan Continue the Depakote ER 500 mg 1 in the morning 2 at night Continue the Keppra 750 mg t.I.d. Track down the blood work Monitor for any new events Call if there are new issues The patient does not drive any longer The patient was counseled on proper sleep hygiene and adequate hours of sleep. The diagnosis was all discussed with the patient. All questions were answered and they agreed with the treatment plan. Patient will call if there are any new issues or questions. Pt has been fully educated on their diagnosis, treatment options, follow up plan, and return instructions Return to clinic: 6 months documented in this encounter [facility] 04-09-2024 Hospital Discharg e instructions Patient Education 04/09/2024 11:51:15 Prostate Cancer [...] treatment? Where to find more information The [place] [employer]: www.cancer.org [place] [employer] Association: www.auanet.org Contact a health care [...] provider. Document Revised: 12/03/2021 Document Reviewed: 12/03/2021 [employer] Patient Education 2023 [employer] Follow Up Care 01/29/2024 16:16:35 With:SHAISTA NARAYANAN, Chris Quinn, URL Address: [address] [place] [address]- When: Unknown [facility] 04-09-2024 Note Patient Education Oncology Prostate Cancer [...] Where to find more information ? The [place] [employer]: www.cancer.org ? [place] [employer]: www.auanet.org Contact a health care [...] of the rectum. (more content not included)... [facility] 12-22-2023 Hospital Discharg e instructions Patient Education 12/22/2023 10:55:16 Prostate Cancer [...] treatment? Where to find more information The [place] [employer]: www.cancer.org [place] [employer]: www.auanet.org Contact a health care [...] provider. Document Revised: 12/03/2021 Document Reviewed: 12/03/2021 [employer] Patient Education 2022 [employer]. Follow Up Care 11/20/2023 10:45:27 With:SHAISTA NARAYANAN, Chris Quinn, URL Address: [facility] [address] , [place] [address]- [phone] When: Unknown [facility] 12-22-2023 Note Urology Office/Clini c Note Chief [...] as primary historian. Follows with neurology in [place] for seizures. 1. Elevated PSA (R97.20: Elevated [...] leaving office today -Schedule prostate MRI @ [facility]. Will call pt with results. -Will schedule [...] See #1. Follow-up With When Contact Information Chris NOONAN MD, URL [facility] [address], [place] [address]- [phone] Additional Instructions: sched prostate MRI and biopsy [...] 1 tab(s), Oral (more content not included)... [facility] Comment on above: Result Comment: Elec [...] Where to find more information ? The [place] [employer]: www.cancer.org ? [place] [employer]: www.auanet.org Contact a health care [...] of the rectum. (more content not included)... [facility] 06-22-2023 Evaluation note Encounter Date Diagnosis Assessment Notes May, Type 2 diabetes mellitus with hyperglycemia , without long-term current use of insulin (ICD-10 - E11.65) [facility] 12-14-2023 Evaluation note* Encounter Date Diagnosis Assessment Notes Treatment Notes Treatment Clinical Notes May, Type 2 diabetes mellitus with hyperglycemia, without long-term current use of insulin (ICD-10 - E11.65) [facility] Other 12-14-2023 Evaluation note* Encounter Date Diagnosis Assessment Notes Treatment Notes Treatment Clinical Notes May, Elevated cholesterol (ICD-10 - E78.00) May, Primary hypertension (ICD-10 - I10) [facility] 09-26-2023 Evaluation note* Encounter Date Diagnosis Assessment Notes Treatment Notes Treatment Clinical Notes Feb, Type 2 diabetes mellitus with hyperglycemia, without long-term current use of insulin (ICD-10 - E11.65) [facility] 06-28-2023 Evaluation note* Encounter Date Diagnosis [...] Neurology since his last OV, not changes [facility] 03-28-2023 Evaluation note* Encounter Date Diagnosis [...] w/ CRC screening. Colonoscopy due next year [facility] Other 12-29-2022 NotePROCEDURE: CT CSPINE WO CON [...] Electronically authenticated by: CADENCE THORNTON Date: 2022-06-20 12:21[facility]12-29-2022 NotePROCEDURE: XR HAND LT MIN 3V [...] Electronically authenticated by: CADENCE THORNTON Date: 2022-06-20 12:02[facility]07-08-2021 NoteThe [facility] Mental Health InstituteBeijing kongkong technology [id number] NoteSW following for DC to SNF. There are no responses from the referrals that were sent yesterday in [facility]. SW will continue to follow for DC planning. SW aware pt is not medically cleared for DC at this time. YUNIEL Sanderson Social WorkThe [facility] Mental Health InstituteBeijing kongkong technology [id number] interpreter [phone] assisted with evaluating pt pain status and explaining plan of care. Pt denies pain and was instructed on the use of the [employer] administration. Pt also aware he will be going to Step down for continued monitoring.The [facility] InstituteBeijing kongkong technology [id number] NoteOccupational Therapy AND Physical Therapy on 5C: Duplicate referrals received. Patient was evaluated 12/08/2020 with recommendation for d/c to acute rehab setting. OT AND PT will continue established POC. Sirena KUNZ, OTR/L Pager# [phone] [facility] Children'S Medical [id number] NotePRE-PROCEDURE NOTE Procedure: ultrasound guided left pleural drain placement Indication: effusion/empyema Site of Procedure: left Site Marked pre-procedure: Yes Pre-Procedure Pain Ratin/10 Ron Quintero MD RadiologyThe [facility] SystemEvaluation + Plan note No data available for this section [facility] evaluation noteNo InformationNortPenn State Health Rehabilitation Hospital [employer] Other Evaluation note* Diagnosis Onset Date Resolution Status Elevated cholesterol acute Hypertension acute Type 2 diabetes mellitus with hyperglycemia acute [facility] Work Phone: Evaluation note* Diagnosis Onset Date Resolution Status Elevated cholesterol acute Elevated PSA acute Hypertension acute Overweight acute Type 2 diabetes mellitus with hyperglycemia acute [facility] Work Phone: Evaluation note* Diagnosis Seizure (CMS/HCC)- Primary Other convulsions Bilateral deafness Unspecified hearing loss Tremor Abnormal involuntary movements Medication monitoring encounter Encounter for therapeutic drug monitoring documented [facility] Diagnosis Seizure (CMS/HCC)- Primary Other convulsions Bilateral deafness Unspecified hearing loss Tremor Abnormal involuntary movements Medication monitoring encounter Encounter for therapeutic drug monitoring documented in this encounter [facility] HealthcareHistory general Narrative - Reported* Type Description Date [...] EART 2016 Hospitalization History SEE SURGICAL HX [facility] [employer] Other History general Narrative - Reported* Type [...] 2020 Surgical History PARTIAL RELEASE OF LUNG) 2021 Surgical History COLONOSCOPY (repeat 2023) 2019 Surgical History C 2016 Surgical History CARDIAC CATHETERIZATION, LEFT H EART 2016 Hospitalization History SEE SURGICAL HX [employer] Other Progress note No data available for this section [facility] [employer] Summary Purpose Family History Relationship Condition Age at Onset Recorded Date/T elizabeth brother Malignant neoplasm Unknown Hypertension Unknown father Malignant neoplasm Unknown Not Specified History of stroke Unknown Relationship Condition Age at Onset Recorded Date/T elizabeth brother Malignant neoplasm Unknown Hypertension Unknown father Malignant neoplasm Unknown mother History of stroke Unknown Advance Directives Documents on File Type Date Recorded Patient Palletiser Operator Expl anation ACP-Advance Directive ACP-Power of Front Desk Monitor Advance Directive Response Recorded Date/ Time Advance [...] section and content) DATE CREATED AUTHOR 12/16/2017 [facility] DATE CREATED AUTHOR AUTHOR'S ORGANIZ ATION 12/23/2020 [facility] DATE CREATED AUTHOR AUTHOR'S ORGANIZ ATION 01/09/2021 [facility] DATE CREATED AUTHOR AUTHOR'S ORGANIZ ATION 07/23/2021 [facility] DATE CREATED AUTHOR AUTHOR'S ORGANIZ ATION 10/21/2022 [facility] DATE CREATED AUTHOR AUTHOR'S ORGANIZ ATION 04/07/2024 [facility] DATE CREATED AUTHOR AUTHOR'S ORGANIZ ATION 04/12/2024 [facility] DATE CREATED AUTHOR AUTHOR'S ORGANIZ ATION 08/10/2024 [facility] EPIC Source Comments (unrecognize d section and content) In the event this informatio n is protected by the Federal Confidentiality of Alcohol and Drug Abuse Patient Records regulations: The Federal rules restrict any use of the information to criminally investigate or prosecute any alcohol or drug abuse patient.[facility] Care Teams (unrecognized sec tion and content) [...] Attending Provider Active Start: November 11, [address] Relationship Specialty Start Date End Date Bambi Bah [address] [place], [place] [address] [id number] PCP - General Emergency Medicine 07/20/15 Team Status: Inactive Member Role Status Dates Gasper Thurman DO Primary Care Provide r, Attending Provider Active Start: September 25, 2023 End: September 25, [address] Worker Relationship Specialty Start Date End Date Gasper Thurman MD [address] [place] [id number] PCP - General Internal Medicine 10/28/[address] Worker Relationship Specialty Start Date End Date Gasper Thurman MD [address] [facility] [place] [id number] PCP - General Internal Medicine 10/28/[address] Worker Relationship Specialty Start Date End Date Gasper Thruman MD [address] [facility] [place] [id number] PCP - General Internal Medicine 10/28/[address] Worker Relationship Specialty Start Date End Date Gasper Thurman MD [address] [facility] [place] [phone] PCP - General Internal Medicine 10/28/[address] Worker Relationship Specialty Start Date End Date Gasper Thurman MD [address] [facility] [place] [phone] PCP - General Internal Medicine 10/28/23 REASON FOR VISIT (unrecogniz ed section and content) Reason Comments Seizures Reason Comments Seizures Goals (unrecognized section and content) Goals may [...] BE BASED ON THE PRIMARY CLINICAL RECORDS. [employer] [facility]. provides no warranty or guarantee of the accuracy or completeness of information in this document.
[2024-10-08 07:45] LABS: Basophils Percent Auto 0.7 % (0.2-2.0); Eosinophils Absolute Auto 0.1 10^3/uL (0.0-0.7); Eosinophils Percent Auto 1.4 % (0.9-7.0); Hematocrit 45.5 % (42.0-54.0); Hemoglobin 14.9 g/dL (14.0-18.0); Immature Granulocytes Abs Auto 0.01 10^3/uL (0.00-0.03); Immature Granulocytes Pct Auto 0.2 % (0.0-0.5); Lymphocytes Absolute Auto 1.6 10^3/uL (1.2-3.8); Mean Corpuscular HGB Conc 32.7 g/dL (29.9-35.2); Mean Corpuscular Volume 94.8 fL (80.0-94.0); Mean Platelet Volume 9.4 fL (9.5-13.5); Monocytes Absolute Auto 0.4 10^3/uL (0.3-0.8); Monocytes Percent Auto 9.5 % (1.7-12.0); Neutrophils Absolute Auto 2.4 10^3/uL (1.4-6.5); Neutrophils Percent Auto 53.2 % (43.0-75.0); Platelet Count 150 10^3/uL (150-450); Red Cell Distribution Width 14.2 % (11.0-15.0); White Blood Count 4.4 10^3/uL (4.0-11.0)
[2024-10-08 08:04] LABS: Creatinine Urine Random 257.39 mg/dL (20.00-300.00); Microalbumin Urine Random <1.3 mg/dL (<=30.0)
[2024-10-08 08:50] LABS: Alanine Aminotransferase 21 U/L (16-63); Albumin Globulin Ratio 1.1; Albumin Level 3.5 g/dL (3.4-5.0); Alkaline Phosphatase 66 U/L (46-116); Anion Gap 9.5; Aspartate Amino Transferase 19 U/L (15-37); BUN Creatinine Ratio 20.4; Bilirubin Total 0.5 mg/dL (0.2-1.0); Calcium 8.7 mg/dL (8.5-10.1); Carbon Dioxide 31.1 mmol/L (21.0-32.0); Chloride 109 mmol/L (98-107); Chol HDL Ratio 3.5; Cholesterol 142 mg/dL (<=200); Estimated GFR (African America >60 (>=60 mL/min/1.73m^2); Estimated GFR (Non-African Ame >60 (>=60 mL/min/1.73m^2); Globulin 3.1 g/dL; Glucose 100 mg/dL (74-106); HDL Cholesterol 41 mg/dL (40-60); LDL Cholesterol Calculated 87.8 mg/dL; Potassium 4.6 mmol/L (3.5-5.1); Sodium 145 mmol/L (136-145); Thyroid Stimulating Hormone 1.881 uIU/mL (0.358-3.740); Total Protein 6.6 g/dL (6.4-8.2); Triglycerides 66 mg/dL (<=150); VLDL CHOLESTEROL 13.2 mg/dL
[2024-10-08 08:55] LABS: Estimated Average Glucose 143 mg/dL; Glycohemoglobin A1C 6.6 % (4.5-6.2)
[2024-10-08 09:09] LABS: Prostate Specific Antigen Scrn 1.86 ng/mL (<=4.00)
== END 2024-10-08 07:23 | disposition home or self-care (01) ==
PROVIDERS: PCP Internal Medicine; Visit Provider Internal Medicine
DX: Z00.00 Encounter for general adult medical examination without abnormal findings (principal); Z12.5 Encounter for screening for malignant neoplasm of prostate
CPT/HCPCS: 36415; 80053; 80061; 82043; 82570; 83036; 84443; 85025; G0103